=== PATIENT | male | born 1995 | race Caucasian/White ===

== ENCOUNTER 2023-05-21 14:21 | Outpatient (OUT) | payer OTHER, SELFPAY ==
--- NOTE | 2023-05-21 16:34 | P.CN_ITS ---
Consult Note: HPI Data of Consult Patient: new to practice Consult date: 05/21/23 Requesting Physician: Ray Rasmussen MD Primary Care Provider: BI BELL Consult Narrative Reason for consult: low back, bilateral lower extremity pain, midback pain Narrative: 27yom who presents for evaluation. worsening midback, low back pain with radiation into bilateral lower extremities. ongoing for several years. denies traumatic inciting event. lumbar imaging reviewed, which is significant for disc bulging and resultant stenosis at l4-5 and l5-s1. has engaged in provider directed course of home exercises >3x/week >6 weeks, with minimal benefit. uses tylenol on occasion, but does not like medication. cc:: CC: Ray Rasmussen MD Review of Systems ROS Status of ROS 10 or more systems reviewed and unremarkable except as noted in history and below Exam Narrative Exam Narrative: Psych-alert and oriented x 3. Attentive and appropriate, constitutionally normal, displays normal mood and affect per situation. There are no obvious deficits in memory, reasoning, or intellect.? Skin-no obvious rashes, bruising, erythema noted to the patient's area of pain.? Extremities- extremities are warm with minimal edema and palpable pulses. Lumbar-tenderness to palpation noted in the lumbar spine and paraspinal musculature. Pain is elicited with flexion, extension, and lateral rotation of the lumbar spine. Range of motion is diminished with these motions. Facet lucius ding maneuvers are positive.? Strength-noted to be unremarkable with the exception of decreased strength rated at 4 out of 5 in bilateral quadriceps femoris, anterior tibialis. Sensory-no notable sensory deficits in the bilateral lower extremities to touch or pinprick in all dermatomal distributions with the exception to decreased sensation to the bilateral L4, 5 dermatomal distribution? Coordination remains intact.? Gait remains non-antalgic. Assessment and Plan Assessment and Plan (1) Thoracic back pain: (2) Lumbar stenosis with neurogenic claudication: (3) Lumbar spondylosis: Plan 27yom who presents for evaluation. failed conservative measures, as noted. given symptoms and imaging, prudent to attempt bilateral l4-5 tfesi under fluoroscopic guidance. depending on response, may benefit from bilateral l5-s1 tfesi under fluoroscopic guidance. he is in agreement. in terms of mid back pain, will have him undergo thoracic xr. meds reviewed, no changes. follow up after procedure.
== END 2023-05-21 14:22 | disposition home or self-care (01) ==
LOC: PM 14:22
PROVIDERS: PCP Family Medicine; Visit Provider Anesthesiology
DX: M54.6 Pain in thoracic spine (principal); M47.816 Spondylosis without myelopathy or radiculopathy, lumbar region; M48.062 Spinal stenosis, lumbar region with neurogenic claudication
CPT/HCPCS: G0463

== ENCOUNTER 2023-05-21 16:03 | Outpatient (OUT) | payer OTHER, SELFPAY ==
--- NOTE | 2023-05-21 | XR_ITS ---
The [address] [address] Patient Name: CINDY LANDEROS MRN: [id number] date: 1995 Sex: M Assigned Patient Location: [facility] Current Patient Location: Accession/Order Number: [id number] Exam Date: 05/21/2023 16:25 Report Date: 05/22/2023 08:02 At the request of: [facility] Procedure: XR thoracic spine 2V EXAMINATION: XR thoracic spine 2V HISTORY: THORACIC BACK PAIN COMPARISON: No relevant comparison available. FINDINGS: BONES: Normal. No significant spondylosis, scoliosis, fracture, or visible bony lesion. DISC SPACES: Normal. No significant disc height narrowing, subluxation, or endplate abnormality. PARASPINOUS: Negative. No paraspinous abnormality is seen. OTHER: Negative. XR/XR thoracic spine 2V IMPRESSION: No acute radiographic abnormality Electronically authenticated by: KELLY CABELLO Date: 05/22/2023 08:02
== END 2023-05-21 16:04 | disposition home or self-care (01) ==
LOC: RAD 16:09
PROVIDERS: PCP Family Medicine; Visit Provider Anesthesiology
DX: M54.6 Pain in thoracic spine (principal); M47.816 Spondylosis without myelopathy or radiculopathy, lumbar region; M48.062 Spinal stenosis, lumbar region with neurogenic claudication
CPT/HCPCS: 72070; G0463

== ENCOUNTER 2023-06-04 15:51 | Outpatient (RCR) | payer OTHER, SELFPAY | END 2023-07-15 08:00 | disposition home or self-care (01) | LOC: PT 15:51 | PROVIDERS: PCP Family Medicine; Visit Provider Anesthesiology | DX: M54.6 Pain in thoracic spine (principal); M48.062 Spinal stenosis, lumbar region with neurogenic claudication | CPT/HCPCS: 97010; 97110; 97112; 97163 ==

== ENCOUNTER 2023-07-16 08:54 | Outpatient (RCR) | payer OTHER, SELFPAY | END 2023-08-09 15:54 | disposition home or self-care (01) | LOC: PT 08:54 | PROVIDERS: PCP Family Medicine; Visit Provider Anesthesiology | DX: M54.6 Pain in thoracic spine (principal); M48.062 Spinal stenosis, lumbar region with neurogenic claudication | CPT/HCPCS: 97010; 97110; 97140 ==

== ENCOUNTER 2023-07-31 13:20 | Outpatient (OUT) | payer OTHER, SELFPAY ==
--- NOTE | 2023-07-31 13:26 | MR_ITS ---
The [address] [address] Patient Name: CINDY LANDEROS MRN: [id number] date: 1995 Sex: M Assigned Patient Location: MRI Current Patient Location: MRI Accession/Order Number: [id number] Exam Date: 07/31/2023 13:40 Report Date: 07/31/2023 16:56 At the request of: NON-STAFF PHYSICIAN Procedure: MR head/brain wo/w con MRI brain with and without contrast, 07/31/2023. HISTORY: Headache. Pain in back of neck. COMPARISON: None. TECHNIQUE: Multiplanar, multisequence MRI imaging of the brain with and without contrast. FINDINGS: Paranasal sinuses clear. Left maxillary sinus is small in size likely related to chronic obstruction. Mastoid air cells and middle ear cavities clear. Nasopharynx normal. Plastic Cutter spaces are normal. Orbital contents normal. Extracranial soft tissue structures unremarkable. The ventricles are normal in size. There is no hydrocephalus. No mass effect. No shift of midline. No extra-axial fluid collections. No abnormal signal in the brain. Diffusion images are normal. No evidence of acute ischemic infarction. The T2 gradient images show no hemorrhagic lesions. No pathologic enhancement within the brain. No brain mass. MR/MR head/brain wo/w con IMPRESSION: Normal MRI of the brain. Electronically authenticated by: STACIE URBANO Date: 07/31/2023 16:56
== END 2023-07-31 13:21 | disposition home or self-care (01) ==
LOC: MRI 13:20
PROVIDERS: PCP Family Medicine
DX: R51.0 Headache with orthostatic component, not elsewhere classified (principal)
CPT/HCPCS: 70553; A9575

== ENCOUNTER 2023-08-16 13:18 | Outpatient (OUT) | payer OTHER, SELFPAY ==
--- OUTSIDE RECORDS SUMMARY | 2023-08-16 13:24 | XMS_ITS | CCD ---
Author Name Unknown Address [address] [place] [address] Organization [facility] Care Team Providers Care Nickel Plater Name Role Phone Bi BELL Primary Care Physician Trupti Marques CNP Primary Care Provider Bi Bell Unavailable Unavailable Unavailable Dr. Bi Bell Primary Care CESILIA Keller Referring Unavailable CESILIA JETER Attending Unavailable Bi BELL Primary Care Physician DO Bi Bell Primary Care Provider MD Cesilia Jeter Attending Provider [phone] MD Minnie Vásquez Referring Provider Cesilia Jeter Admitting Unavailable Cesilia Jeter Attending Bi Nelson Primary Care Unavailable Minnie Vásquez Referring Unavailable Corona, Dr. Lomas Attending Unavailable Corona, Dr. Lomas Referring Unavailable Ray, Dr. Bi Torres Primary Care Dr. Cesilia Keller Attending Unavailable Corona, Dr. Lomas Referring Unavailable Ray, Dr. Bi Torres Primary Care Dr. Cesilia Keller Attending Unavailable Corona, Dr. Lomas Referring Unavailable Ray, Dr. Bi Torres Primary Care Dr. Cesilia Keller Attending Unavailable Corona, Dr. Lomas Referring Unavailable Ray, Dr. Bi Torres Primary Care Minnie Gallagher Attending Unavailable Corona Dr. Lomas Referring Unavailable Ray, Dr. Bi Torres Primary Care Octavio JETER, CESILIA Referring Unavailable RAY, BI TORRES Primary Care UnavailCESILIA Camarillo Attending Unavailable CORONA, CESILIA Referring Unavailable RAY, BI TORRES Primary Care Unavailabl e Ray DO, Bi Torres Primary Care Provider WENDI MENDOZA Admitting Unavailabl e MENDOZA, WENDI WU Attending Unavailabl e SALAM, Chapman Admitting Unavailable SALAM, Adela Attending Unavailable Jv Dacosta Attending Unavailable Shelli, Trupti A Admitting Unavailable Shelli, Trupti A Attending Unavailable Shelli, Trupti A Attending Unavailable Shelli, Trupti A Attending Unavailable SALAM, Adela Attending Unavailable RAY, Bi Hoyt Attending Unavailable Ghulam Masterson Attending Unavailable RAY, Bi Hoyt Attending Unavailable RAY, Bi Hoyt Attending Unavailable Winsome Davenport Attending Unavailable Palmer Levi Attending Unavailable CARIDAD, MARIELOS J Referring Unavailable NONE, XXXX Referring Unavailable SALAM, Chapman Admitting Unavailable SALAM, Adela Attending Unavailable NONE, XXXX Referring Unavailable SALAM, Chapman Admitting Unavailable SALAM, Adela Attending Unavailable RAY, Bi Hoyt Admitting Unavailable RAY, Bi Hoyt Attending Unavailable RAY, Bi Hoyt Referring Unavailable Pocos, Dixon Navarrete Admitting Unavailable Pocos, Dixon Navarrete Attending Unavailable Pocos, Dixon Navarrete Referring Unavailable Tarik Sheehan Admitting Unavailable Yatahey, Tarik Martin Attending Unavailable Yatahey, Tarik Martin Referring Unavailable Shelli, Trupti A Referring Unavailable Shelli, Trupti A Admitting Unavailable Shelli, Trupti Navarrete Attending Unavailable SALAM, Adela Admitting Unavailable SALAM, Adela Attending Unavailable CARIDADMARIELOS J Admitting Unavailable CARIDAD, MARIELOS J Attending Unavailable Allergies Allergy Classification Reported Allergen(s) Allergy Type Date of Onset Reaction(s) Facility (20 sources) Cyproheptadine; Translations: [cyproheptadine ] Drug Allergy 4 Drowsy (finding), Drowsiness, Other, Unknown [facility] (8 sources) Cephalexin; Translations: [Cephalexin TABS] Drug Allergy 3 Unknown [facility] (2 sources) Cephalexin; Translations: [CEPHALEXIN] Drug Allergy [address] [facility] Repository (1 source) ALLERGIES NOT ON FILE; Translations: [ALLERGIES NOT ON FILE] Propensity to adverse reactions (disorder) [facility] [place] Repository (2 sources) Acebutolol; Translations: [ACEBUTOLOL] Drug Allergy 3 [facility] 3 Repository Medications Current Medications Medication Drug Class(es) Dates Sig (Normalized) Sig (Original) acebutolol 200 mg oral capsule (2 sources) beta-Adrenergic Rachid Start: 04-05-2023 take 1 capsule by mouth once daily acebutolol (Sectral) 200 mg capsule Take 1 capsule (200 mg) by mouth once daily. 0 04/05/2023 Active amoxicillin 875 mg / clavulanate 125 mg oral tablet (1 source) Penicillin-class Antibacterial Start: 02-07-2023 End: 02-14-2023 Augmentin 875 mg-125 mg Tab 1 tab(s), Oral, q12hr for 7 day(s), 14 tab(s), Refill(s) 0, [facility] [address], 193, cm, 02/07/23 21:30:00 EDT, Height/Length Dosing, 113, kg, 02/07/23 21:30:00 EDT, Weight Dosing Start Date: 02/07/23 Stop Date: 02/14/23 Status: Ordered carBAMazepine 200 mg oral tablet (7 sources) Mood Stabilizer Start: 03-02-2021 carBAMazepine Tab Refills(s) 0 Start Date: 03/02/21 Status: Ordered Start: 03-02-2021 carBAMazepine Tab Refills(s) 0 Start Date: 03/02/21 Status: Ordered cholecalciferol 0.125 mg ora l capsule (8 sources) Vitamin D cholecalciferol (Vitamin D-3) 125 MCG (5000 UT) capsule Vitamin D3 50 MC G (2000 UT) Oral Tablet as directed Quantity: 0 Refills: 0 Ordered: 14-Dec-2022 DO Active ciprofloxacin 500 mg oral tablet (1 source) Quinolone Antimicrobial Start: 11-23-2022 End: 12-03-2022 take 1 tablet by mouth twice daily Cipro 500 mg Tab 500 mg = 1 tab(s), Oral, BID, X 10 day(s), # 20 tab(s), Refills(s) 0, Pharmacy: [facility] [address], 193, cm, 11/23/22 13:52:00 EDT, Height/Length Dosing, 109, kg, 11/23/22 13:52:00 EDT, Weight Dosing Start Date: 11/23/22 Stop Date: 12/03/22 Status: Ordered clobetasol propionate 0.5 mg/ml topical foam (19 sources) Corticosteroid Start: 01-05-2023 Olux 0.05% topical foam 1 anum, Topical, BID, 100 gram, Refill(s) 1, [facility] [address], 193, cm, 12/26/22 16:03:00 EDT, Height/Length Dosing, 112.1, kg, 12/26/22 16:03:00 EDT, Weight Dosing Start Date: 01/05/23 Status: Ordered Start: 10-12-2022 Olux 0.05% top ical foam 1 anum, Topical, BID, 100 gram, Refill(s) 1, [facility] [address], 193, cm, 08/09/22 16:56:00 EST, Height/Length Dosing, 115.2, kg, 08/09/22 16:56:00 EST, Weight Dosing Start Date: 10/12/22 Status: Ordered Start: 06-19-2022 Olux 0.05% top ical foam 1 anum, Topical, BID, 100 gram, Refill(s) 1, [facility] [address], 193, cm, 04/13/22 16:11:00 EDT, Height/Length Dosing, 118, kg, 04/13/22 16:11:00 EDT, Weight Dosing Start Date: 06/19/22 Status: Ordered Start: 11-25-2021 Olux 0.05% top ical foam 1 anum, Topical, BID, 100 gram, Refill(s) 1, [facility] [address], 193, cm, 10/06/21 15:13:00 EDT, Height/Length Dosing, 111.7, kg, 10/06/21 15:13:00 EDT, Weight Dosing Start Date: 11/25/21 Status: Ordered End: 05-28-2023 clobetasol (Olux) 0.05 % top ical foam Apply topically 2 times a day. 0 05/28/2023 Discontinued (Therapy completed) End: 05-28-2023 clobetasoL-emollient 0.05 % topical foam Apply topically. 0 05/28/2023 Discontinued (Therapy completed) Comment on above: Apply to affected ar ea. cyclobenzaprine hydrochloride 5 mg oral tablet (7 sources) Muscle Relaxant Start: 021 take 1 tablet by mouth once daily at bedtime cyclobenzaprine 5 mg Tab TAKE 1 TABLET BY MOUTH once a day AT BEDTIME Start Date: 03/02/21 Status: Ordered dicyclomine hydrochloride 20 mg oral tablet (2 sources) Anticholinergic Start: End: 023 take 1 tablet by mouth four times daily dicyclomine 20 mg Tab 20 mg = 1 tab(s), Oral, QID, X 7 day(s), # 28 tab(s), Refills(s) 0, Pharmacy: [facility] [address], 193, cm, 08/09/22 16:56:00 EST, Height/Length Dosing, 115.2, kg, 08/09/22 16:56:00 EST, Weight Dosing Start Date: 08/09/22 Stop Date: 08/16/22 Status: Ordered 24 hr dilTIAZem hydrochloride 120 mg extended release oral tablet (9 sources) Calcium Channel Rachid Start: 023 take 1 capsule by mouth once daily Cardizem LA 120 mg/24 hours oral tablet, extended release = 1 cap(s), Oral, Daily, # 90 cap(s), Refills(s) 1, Pharmacy: [facility] [address], 193, cm, 11/29/22 13:54:00 EDT, Height/Length Dosing, 111.5, kg, 11/29/22 13:54:00 EDT, Weight Dosing Start Date: 11/29/22 Status: Ordered DULoxetine 60 mg delayed release oral capsule (20 sources) Serotonin and Norepinephrine Reuptake Inhibitor Start: 023 take 1 capsule by mouth once daily DULoxetine (Cymbalta) [address] capsule Take 1 capsule (60 mg) by mouth once daily. For 30 days 0 01/04/2023 Active Start: 08-08-2022 duloxetine Ref ills(s) 0 Start Date: 08/08/22 Status: Ordered Start: 06-05-2022 End: 05-28-2023 take 1 capsule by mouth once daily DULoxetine (Cymbalta) [address] capsule Take 1 capsule (30 mg) by mouth once daily. For 30 days 0 06/05/2022 05/28/2023 Discontinued (Therapy completed) Start: 03-27-2022 take 1 capsule by [facility] once daily DULoxetine 30 mg Cap-EC TAKE 1 CAPSULE BY MOUTH EVERY DAY FOR 30 DAYS Start Date: 03/27/22 Status: Ordered duloxetine HCl ( DULOXETINE ORAL) Take by mouth. 0 Active Comment on above: Take by mouth. famotidine 40 mg oral tablet (20 sources) Histamine-2 Receptor Antagonist Start: 03-02-20 take 1 tablet by mouth once daily famotidine (Pepcid) 40 mg tablet Take 1 tablet (40 mg) by mouth once daily. 0 07/27/2022 Active Comment on above: Take 40 mg by mouth once daily. handicap plaquard (3 sources) Start: 01-11-20 handicap plaquard handicap plaquard, See Instructions, 1 EA, 0, 5 years, Supply Start Date: 01/10/22 Status: Ordered hydrOXYzine hydrochloride 25 mg oral tablet (3 sources) Antihistamine Start: 01-11-20 take 1 tablet by mouth four times daily as needed hydrOXYzine hydrochloride 25 mg Tab 25 mg = 1 tab(s), Oral, QID, PRN for itching, # 40 tab(s), Refills(s) 0, Pharmacy: [facility] [address] 193, cm, 01/10/22 15:41:00 EDT, Height/Length Dosing, 115.8, kg, 01/10/22 15:41:00 EDT, Weight Dosing Start Date: 01/10/22 Status: Ordered LDN 1.5 mg (1 source) Start: 11-30-19 LDN 1.5 mg LDN 1.5 mg, See Instructions, 30 cap(s), 0, 1 cap po at HS, [employer] [employer], 193, cm, 11/29/22 13:54:00 EDT, Height/Length Dosing, 111.5, kg, 11/29/22 13:54:00 EDT, Weight Dosing Start Date: 11/29/22 Status: Ordered LDN 3 mg (1 source) Start: 12-27-19 LDN 3 mg LDN 3 mg, See Instructions, 30 cap(s), 2, 1 cap po at HS, [employer], [employer], 193, cm, 12/26/22 16:03:00 EDT, Height/Length Dosing, 112.1, kg, 12/26/22 16:03:00 EDT, Weight Dosing Start Date: 12/26/22 Status: Ordered losartan potassium 25 mg oral tablet (20 sources) Angiotensin 2 Receptor Rachid Start: 01-13-20 take 1 tablet by mouth once daily losartan (Cozaar) 25 mg tablet Take 1 tablet (25 mg) by mouth once daily. 0 03/30/2022 Active Comment on above: Take 25 mg by mouth once daily. magnesium oxide 400 mg oral tablet (3 sources) Start: 11-30-19 End: 05-28-20 take 1 tablet by mouth once daily magnesium oxide 400 mg Tab 400 mg = 1 tab(s), Oral, Daily, X 30 day(s), # 30 tab(s), Refills(s) 2, Pharmacy: [facility] [address], 193, cm, 11/29/22 13:54:00 EDT, Height/Length Dosing, 111.5, kg, 11/29/22 13:54:00 EDT, Weight Dosing Start Date: 11/29/22 Stop Date: 02/27/23 Status: Ordered melatonin 1 mg oral tablet (8 sources) Start: 03-02-20 take 1 capsule by mouth at bedtime Melatonin 1 mg oral tablet take 1 capsule po at bedtime Start Date: 03/02/21 Status: Ordered modafinil 200 mg oral tablet (20 sources) Sympathomimetic-like Agent Start: 04-13-20 End: 05-28-20 take 1 tablet by mouth once daily in the morning Provigil 200 mg Tab 200 mg = 1 tab(s), Oral, qAM, # 30 tab(s), Refills(s) 2, Pharmacy: [facility] [address], 193, cm, 12/26/22 16:03:00 EDT, Height/Length Dosing, 112.1, kg, 12/26/22 16:03:00 EDT, Weight Dosing Start Date: 12/26/22 Status: Ordered Comment on above: Take 200 mg by mouth once daily. Olux 0.05% topical foam (4 sources) Start: 11-26-19 Olux 0.05% topical foam 1 anum, Topical, BID, 100 gram, Refill(s) 1, [facility] [address]16, 193, cm, 10/06/21 15:13:00 EDT, Height/Length Dosing, 111.7, kg, 10/06/21 15:13:00 EDT, Weight Dosing Start Date: 11/25/21 Status: Ordered Start: 08-16-2021 Olux 0.05% top ical foam 1 anum, Topical, BID, 100 gram, Refill(s) 0, [facility]16, 193, cm, 06/02/21 16:01:00 EST, Height/Length Dosing, 105.4, kg, 06/02/21 16:01:00 EST, Weight Dosing Start Date: 08/16/21 Status: Ordered ondansetron 4 mg disintegrating oral tablet (15 sources) Serotonin-3 Receptor Antagonist Start: 08-09-2022 End: 05-28-2023 take 1 tablet by mouth every six hours ondansetron 4 mg Dis Tab 4 mg = 1 tab(s), Oral, q6hr, # 12 tab(s), Refills(s) 0, Pharmacy: [facility] [address], 193, cm, 08/09/22 16:56:00 EST, Height/Length Dosing, 115.2, kg, 08/09/22 16:56:00 EST, Weight Dosing Start Date: 08/09/22 Status: Ordered End: 05-28-2023 ondansetron (Zofran) 4 mg ta blet Take by mouth every 8 hours if needed for nausea or vomiting. 0 05/28/2023 Discontinued (Therapy completed) Comment on above: Take by mouth every 8 hours as needed for nausea/vomiting. pantoprazole 40 mg extended release oral tablet (20 sources) Proton Pump Inhibitor Start: 05-26-20 take 1 tablet by mouth once daily pantoprazole 40 mg Oral EC Tab 40 mg = 1 tab(s), Oral, Daily, # 90 tab(s), Refills(s) 1, Pharmacy: [facility] [address], 193, cm, 04/13/22 16:11:00 EDT, Height/Length Dosing, 118, kg, 04/13/22 16:11:00 EDT, Weight Dosing Start Date: 05/26/22 Status: Ordered Start: 01-13-2022 End: 05-28-2023 take 1 tablet by mouth once daily pantoprazole 40 mg Oral EC Tab 40 mg = 1 tab(s), Oral, Daily, # 90 tab(s), Refills(s) 1, Pharmacy: [facility] [address], 193, cm, 01/10/22 15:41:00 EDT, Height/Length Dosing, 115.8, kg, 01/10/22 15:41:00 EDT, Weight Dosing Start Date: 01/13/22 Status: Ordered Start: 06-02-2021 take 1 tablet by [facility] once daily pantoprazole 40 mg Oral EC Tab 40 mg = 1 tab(s), Oral, Daily, # 90 tab(s), Refills(s) 1, Pharmacy: [facility] [address], 193, cm, 06/02/21 16:01:00 EST, Height/Length Dosing, 105.4, kg, 06/02/21 16:01:00 EST, Weight Dosing Start Date: 06/02/21 Status: Ordered Pantoprazole Sod ium 40 MG Oral Packet as directed Quantity: 0 Refills: 0 Ordered: 14-Dec-2022 DO Active Comment on above: Take 40 mg by mouth once daily. predniSONE 10 mg oral tablet (4 sources) Start: 03-27-2022 predniSONE 10 mg Tab 0 = 1 -, Oral, As Directed, Take 5 tabs by mouth daily x3 days, 4 daily x3 days, 3 daily x3 days, 2 daily x3 days, then 1 tab daily x3 days., # 45 tab(s), Refills(s) 0, Pharmacy: [facility], 193, cm, 03/27/22 11:22:00 EDT, Height/Lengt... Start Date: 03/27/22 Status: Ordered Start: 01-10-2022 predniSONE 10 mg Tab 0 = 1 -, Oral, As Directed, Take 5 tabs by mouth daily x3 days, 4 daily x3 days, 3 daily x3 days, 2 daily x3 days, then 1 tab daily x3 days., # 45 tab(s), Refills(s) 0, Pharmacy: [facility], 193, cm, 01/10/22 15:41:00 EDT, Height/Lengt... Start Date: 01/10/22 Status: Ordered 24 hr propranolol hydrochloride 80 mg extended release oral capsule (7 sources) beta-Adrenergic Rachid Start: 12-29-2020 take 1 tablet by mouth once daily propranolol 80 mg Cap-ER TAKE 1 TABLET BY MOUTH EVERY DAY Start Date: 12/29/20 Status: Ordered Start: 12-29-2020 take 1 tablet by [facility] th once daily propranolol 80 mg Cap-ER TAKE 1 TABLET BY MOUTH EVERY DAY Start Date: 12/29/20 Status: Ordered QUEtiapine 25 mg oral tablet (4 sources) Atypical Antipsychotic Start: 11-30-2021 take 1 tablet by mouth at bedtime quetiapine 25 mg Tab 25 mg = 1 tab(s), Oral, Bedtime, # 30 tab(s), Refills(s) 0, Pharmacy: [facility], 193, cm, 11/29/21 15:48:00 EDT, Height/Length Dosing, 112.9, kg, 11/29/21 15:48:00 EDT, Weight Dosing Start Date: 11/30/21 Status: Ordered rimegepant 75 mg disintegrating oral tablet (11 sources) Start: 11-23-2022 Nurtec ODT 75 mg tablet,disintegrat ing Take 1 tablet (75 mg) by mouth. at onset OF migraine for 30 days 0 11/23/2022 Active 24 hr venlafaxine 37.5 mg extended release oral capsule (7 sources) Serotonin and Norepinephrine Reuptake Inhibitor Start: 09-01-2021 venlafaxine 37.5 mg Cap-ER Refills(s) 0 Start Date: 09/01/21 Status: Ordered Start: 09-01-2021 venlafaxine 37 .5 mg Cap-ER Refills(s) 0 Start Date: 09/01/21 Status: Ordered vitamin B12 (20 sources) Vitamin B12 Start: 08-08-2022 Vitamin B12 Re fills(s) 0 Start Date: 08/08/22 Status: Ordered take 1 tablet by mouth once alka y cyanocobalamin (Vitamin B-12) 1,000 mcg tablet Take 1 tablet (1,000 mcg) by mouth once daily. 0 Active Comment on above: Take 1,000 mcg by [facility] once daily. Vitamin D (13 sources) Start: 08-08-2022 Vitamin D Refi lls(s) 0 Start Date: 08/08/22 Status: Ordered Completed/Discontinued Medications Medication Drug Class(es) Dates Sig (Normalized) Sig (Original) acetaminophen 300 mg / codeine phosphate 30 mg oral tablet (1 source) Opioid Agonist Start: 02-08-2023 End: 05-28-2023 take 1 tablet by mouth every six hours as needed acetaminophen-code ine (Tylenol w/ Codeine #3) 300-30 mg tablet Take 1 tablet by mouth every 6 hours if needed. 0 02/08/2023 05/28/2023 Discontinued (Therapy completed) cholecalciferol, vitamin D3, (VITAMIN D3 ORAL) (1 source) cholecalciferol, vitamin D3, (VITAMIN D3 ORAL) Take by mouth. 0 Active Comment on above: Take by mouth. Clobetasol Propionate FOAM (7 sources) Clobetasol Propionate FOAM APPLY SPARINGLY TO AFFECTED AREA(S) TWICE DAILY Quantity: 0 Refills: 0 Ordered: 14-Dec-2022 DO Active Fiber Therapy CAPS (6 sources) Fiber Therapy CA PS USE DIRECTED. Quantity: 0 Refills: 0 Ordered: 14-Dec-2022 DO Active Magnesium Chloride (7 sources) Start: 11-09-2020 take 1 tablet by mouth twice daily MAgnesium Chloride 64 MAgnesium Chloride 64, 1 tab, Oral, BID, 60 tab(s), 1, [facility], Supply, 193, cm, 11/09/20 16:16:00 EDT, Height/Length Dosing, 93.5, kg, 11/09/20 16:16:00 EDT, Weight Dosing Start Date: 11/09/20 Status: Ordered 24 hr metoprolol succinate 50 mg extended release oral tablet (16 sources) beta-Adrenergic Rachid Start: 04-13-2022 End: 05-28-2023 take 1 tablet by mouth once daily metoprolol succinate XL (Toprol-XL) 50 mg 24 hr tablet Take 1 tablet (50 mg) by mouth once daily. 0 08/10/2022 05/28/2023 Discontinued (Therapy completed) End: 05-28-2023 take 1 tablet by mouth twice daily metoprolol tartrate (Lopressor) 50 mg tablet Take 1 tablet by mouth twice a day. 0 05/28/2023 Discontinued (Therapy completed) Comment on above: Take 50 mg by mouth twice daily. Naltrex 1.5 MG Oral Capsule (7 sources) take 1 tablet by mouth once daily Naltrex 1.5 MG Oral Capsule 1 TAB DAILY Quantity: 0 Refills: 0 Ordered: 14-Dec-2022 DO Active naltrexone hydrochloride 50 mg oral tablet (1 source) Opioid Antagonist Start: 3 End: 3 naltrexone (Depade) 50 mg tablet NON FORMULARY (1 source) Start: 3 End: 3 take 1 capsule by mouth at bedtime NON FORMULARY LDN 3mg; 1 capsule PO at HS 0 12/26/2022 05/28/2023 Discontinued (Therapy completed) pregabalin 50 mg oral capsule (9 sources) Start: 3 End: 3 take 1 capsule by mouth twice daily pregabalin (Lyrica) 50 mg capsule Take 1 capsule (50 mg) by mouth 2 times a day. 0 03/16/2023 05/28/2023 Discontinued (Therapy completed) Start: 09-01-2021 take 1 capsule by [facility] twice daily pregabalin 100 mg Cap TAKE 1 CAPSULE BY MOUTH TWICE DAILY FOR 30 DAYS Start Date: 09/01/21 Status: Ordered Probiotic Acidophilus TABS (6 sources) Probiotic Acidop hilus TABS USE DIRECTED. Quantity: 0 Refills: 0 Ordered: 14-Dec-2022 DO Active SUMAtriptan 25 mg oral tablet (1 source) Serotonin-1b and Serotonin-1d Receptor Agonist End: 3 SUMATRIPTAN SUCCINATE ORAL Take 25 mg by mouth. 0 05/28/2023 Discontinued (Therapy completed) topiramate 25 mg oral tablet (1 source) End: 3 TOPIRAMATE ORAL Take 25 mg by mouth. 0 05/28/2023 Discontinued (Therapy completed) Vitamin D3 5000 intl units oral capsule (8 sources) Start: 1 take 1 capsule by mouth once daily at mealtime Vitamin D3 5000 intl units oral capsule 5,000 International_Unit = 1 cap(s), Oral, Daily, with food, # 100 cap(s), Refills(s) 0 Start Date: 11/30/20 Status: Ordered Problems Active Problems Problem Classification Problem Date Documented Da te Episodic/Chronic Abdominal pain (20 sources) Epigastric pain; Translations: [Chronic abdominal pain] Onset: 3 03-02-2021 Episodic Administrative/social admission (1 source) Follow-up status; Translations: [Other specified counseling] Episodic Cardiac dysrhythmias (4 sources) Unspecified atrial fibrillation; Translations: [Atrial fibrillation] Onset: 3 Chronic Cardiac dysrhythmias (20 sources) Tachycardia; Translations: [Palpitations] Onset: 3 04-14-2022 Episodic Conditions associated with dizziness or vertigo (7 sources) Lightheadedness; Translations: [Dizziness and giddiness] Episodic Disorders of teeth and jaw (1 source) Disorder of teeth AND/OR supporting structures; Translations: [Other specified disorders of teeth and supporting structures] Onset: 3 Episodic Esophageal disorders (15 sources) Gastroesophageal reflux disease without esophagitis; Translations: [Gastro-esophageal reflux disease without esophagitis] Onset: 3 Chronic Essential hypertension (20 sources) Essential hypertension 08-13-2019 Chronic Headache; including migraine (7 sources) Migraine; Translations: [Migraine, unspecified, without mention of intractable migraine without mention of status migrainosus] Chronic Headache; including migraine (1 source) Headache; Translations: [Headache, unspecified] Episodic Heart valve disorders (4 sources) Cardiac murmur, unspecified; Translations: [Heart murmur] Onset: 3 Episodic Intestinal infection (4 sources) Small bowel bacterial overgrowth syndrome; Translations: [Small intestinal bacterial overgrowth (SIBO)] Onset: 3 11-23-2022 Episodic Malaise and fatigue (1 source) Fatigue; Translations: [Chronic fatigue, unspecified] Onset: 3 06-02-2023 Chronic Malaise and fatigue (20 sources) Fatigue; Translations: [Other malaise and fatigue] 09-01-2021 Episodic Miscellaneous mental health disorders (17 sources) Not getting enough sleep; Translations: [Insufficient sleep syndrome] Onset: 2 Chronic Nausea and vomiting (9 sources) Nausea; Translations: [Nausea] Onset: 3 Episodic Noninfectious gastroenteritis (20 sources) Chronic diarrhea; Translations: [Noninfectious enteritis] Onset: 3 02-16-2022 Episodic Nonspecific chest pain (8 sources) Chest discomfort; Translations: [Other chest pain] Onset: 3 Episodic Nutritional deficiencies (20 sources) Vitamin D deficiency; Translations: [Vitamin D deficiency, unspecified] Onset: 3 10-12-2020 Chronic Nutritional deficiencies (3 sources) Cobalamin deficiency; Translations: [Deficiency of other specified B group vitamins] Onset: 3 11-29-2022 Episodic Other aftercare (1 source) Treatment changed; Translations: [Long-term (current) use of other medications] Episodic Other connective tissue disease (1 source) Muscle pain; Translations: [Myalgia, unspecified site] Episodic Other gastrointestinal disorders (4 sources) Irritable bowel syndrome with diarrhea; Translations: [Irritable bowel syndrome with diarrhea] Onset: 3 11-23-2022 Chronic Other gastrointestinal disorders (20 sources) Incontinence of feces; Translations: [Full incontinence of feces] Onset: 3 11-30-2021 Episodic Other gastrointestinal disorders (9 sources) Diarrhea; Translations: [Diarrhea, unspecified] Onset: 3 Episodic Other gastrointestinal disorders (1 source) Disorder of intestine; Translations: [Other specified diseases of intestine] Onset: 3 Episodic Other liver diseases (9 sources) Steatosis of liver; Translations: [Fatty (change of) liver, not elsewhere classified] Onset: 3 Chronic Other lower respiratory disease (20 sources) Dyspnea; Translations: [Shortness of breath] Onset: 2 01-11-2022 Episodic Other lower respiratory disease (7 sources) Dyspnea on exertion; Translations: [Shortness of breath] Episodic Other nervous system disorders (1 source) Hereditary sensory and autonomic neuropathy; Translations: [Hereditary and idiopathic neuropathy, unspecified] Onset: 2 Chronic Other nervous system disorders (20 sources) Idiopathic small fiber peripheral neuropathy 06-05-2021 Chronic Other nervous system disorders (2 sources) Chronic pain; Translations: [Other chronic pain] Onset: 2 Chronic Other nervous system disorders (20 sources) H/O: migraine 12-18-2011 Episodic Comment on above: cluster migraines cluster migraines Other non-traumatic joint disorders (2 sources) Joint pain; Translations: [Pain in unspecified joint] 10-05-2020 Episodic Other non-traumatic joint disorders (1 source) Pain in left knee; Translations: [Pain of joint of knee] Onset: 2 Episodic Other non-traumatic joint disorders (1 source) Pain of right shoulder joint; Translations: [Pain in right shoulder] Onset: 2 Episodic Other non-traumatic joint disorders (1 source) Pain in right knee; Translations: [Pain of right knee joint] Onset: 2 Episodic Other non-traumatic joint disorders (1 source) Pain of left shoulder joint; Translations: [Pain in left shoulder] Onset: 2 Episodic Other non-traumatic joint disorders (16 sources) Shoulder pain 03-27-2022 Episodic Other nutritional; endocrine; and metabolic disorders (6 sources) Obesity; Translations: [Obesity, unspecified] Chronic Other nutritional; endocrine; and metabolic disorders (1 source) Overweight in adulthood with body mass index of 25 or more but less than 30; Translations: [Overweight] Episodic Other screening for suspected conditions (not mental disorders or infectious disease) (1 source) Abnormal results function studies of central nervous system; Translations: [Abnormal results of other function studies of central nervous system] Onset: 3 06-02-2023 Episodic Other skin disorders (1 source) Excessive sweating 10-05-2020 Episodic Other skin disorders (12 sources) Eruption 04-14-2022 Episodic Residual codes; unclassified (20 sources) Insomnia; Translations: [Insomnia, unspecified] Onset: 3 08-13-2019 Episodic Residual codes; unclassified (20 sources) Diffuse pain 10-08-2021 Episodic Residual codes; unclassified (1 source) Finding of temperature sense; Translations: [Other general symptoms and signs] Onset: 3 05-25-2023 Episodic Syncope (20 sources) Syncope; Translations: [Syncope and collapse] Onset: 3 09-01-2021 Episodic Systemic lupus erythematosus and connective tissue disorders (2 sources) Autoimmune disease 11-29-2022 Chronic Unclassified (20 sources) Finding of temperature sense 10-08-2021 Unclassified (16 sources) Pain of knee region 03-27-2022 Past or Other Problems Problem Classification Problem Date Documented Da te Episodic/Chronic Unclassified (7 sources) Patient status finding; Translations: [Patient new to provider] Unclassified (7 sources) Never smoked tobacco; Translations: [Never a smoker] Results Test Name Value Interpretation Reference Range Facil ity Auth for Release of Medical Recordson 06-11-2023 Auth for Release of Medical Records [id number]# 1.00TIFF Normal [facility] STRESS TEST ONLYon 3 STRESS TEST ONLY [facility] [address], [place] [address] Exercise Stress Test Patient Name: CINDY SYLVESTER Ordering Provider: [id number] CESILIA JETER Study Date: 05/01/2023 Reading Physician: [id number] Dianna Holloway MD, [facility] MRN/PID: [id number] Supervising Physician: [id number] Rex Gaffney DO Fellow: Date of /Age: 3 1995 / years Fellow: Gender: M Nurse: Kurt Urias RN Admission Status: Hse Specialist: ANITA Height: 193.04 cm Technologist: Weight: 107.50 kg Additional Staff: BSA: 2.38 m2 BMI: 28.85 kg/m2 Patient Location: Study Type: STRESS TEST ONLY Diagnosis/ICD: Palpitations-R00.2; Syncope and collapse-R55 Indication: Hypertension CPT Codes: Stress Test Interpretation-86490 ; Stress Test Supervision-[id number] Falls Risk: Low: Patient has low risk for sustaining a fall; environmental safety interventions in place. Study Details: Correct procedure and correct patient verified verbally. Patient Performance: The patient exercised to stage II on a Sergio protocol for 5 minutes and 05 seconds, achieving 7.00 METS. The peak heart rate achieved was 170 bpm, which was 88 % of the age predicted target heart rate of 192 bpm. The resting blood pressure was 120/84 mmHg with a heart rate of 100 bpm. The standing blood pressure was 124/82 mmHg with a heart rate of 100 bpm. The patient's functional capacity was below average. The patient developed fatigue during the stress exam. The symptoms resolved with rest. The blood pressure response was normal. The test was terminated due to: fatigue. Baseline ECG: Resting ECG showed normal sinus rhythm. Stress Stage Data: + +- --+------+-------+ HR Sys BP Matias BP + +- --+------+-------+ Baseline Resting 100 120 84 + +- --+------+-------+ Baseline Standing 100 124 82 + +- --+------+-------+ Stage I 141 148 84 + +- --+------+-------+ Stage II 173 158 86 + +- --+------+-------+ Recovery ECG: The heart rate recovery was normal. + +---+-- ----+-------+ HR Sys BP Matias BP + +---+-- ----+-------+ Recovery I 172 158 86 + +---+-- ----+-------+ Recovery II 144 154 84 + +---+-- ----+-------+ Recovery III 125 136 86 + +---+-- ----+-------+ Recovery IV 113 124 82 + +---+-- ----+-------+ Summary: 1. 1_normal graded exercise tolerance test but with limited exercise tolerance for age. The patient was able to exercise only for 5 minutes and 5 seconds on a Sergio protocol and achieved 91% of predicted maximal heart rate and a maximal workload of 7 METS. The test ended due to dyspnea and fatigue 2_no ischemic ST segment or Matyas, chest pain or cardiac arrhythmias induced by exercise 3_resting heart rate in the upper normal range at 100 bpm but with appropriate heart rate recovery. Patient achieved Wright treadmill score of 5+. [id number] Dianna Holloway MD, FACC Electronically signed on 05/01/2023 at 3:56:52 PM Final [facility] Consultation Noteon 04-24-20 23 Consultation Note [id number] #1.00TIFF [facility] Office Visit (Cardiology)on 04-05-2023 Follow-up visit Diagnoses/Problems Assessed Palpitations (785.1) (R00.2) Syncope and collapse (780.2) (R55) Overweight with body mass index (BMI) of 28 to 28.9 in adult (278.02,V85.24) (E66.3,Z68.28) Never a smoker Orders Lightheadedness, Palpitations, Sinus tachycardia Start: Acebutolol HCl - 200 MG Oral Capsule; TAKE 1 CAPSULE Daily Overweight with body mass index (BMI) of 28 to 28.9 in adult Healthy Weight Tips; Status:Complete - Retrospective Authorization; Done: [id number] Some eating tips that can help you lose weight.; Status:Complete - Retrospective Authorization; Done: [id number] Palpitations, Syncope and collapse Cardiac Stress Test; Status:Hold For - Scheduling,Retrospec tive Authorization; Requested for:05Apr2023; SocHx: Never a smoker Tobacco Use Screening; Status:Complete; Done: 05Apr2023 Unlinked Stop: Cardizem LA 120 MG Oral Tablet Extended Release 24 Hour (dilTIAZem HCl ER) Patient Instructions Please bring all medicines, vitamins, and herbal supplements with you when you come to the office. Prescriptions will not be filled unless you are compliant with your follow up appointments or have a follow up appointment scheduled as per instruction of your physician. Refills should be requested at the time of your visit. Follow up after testing completed Chief Complaint CINDY SYLVESTER is being seen for results. History of Present Illness 27-year-old was recently and initially seen December 2022 presents for follow-up after blood work tilt table test echocardiogram Holter monitor. On the tilt table test, there was presyncope, associated with arterial hypotension and elevated heart rate, raising possibility of POTS. Reviewed echocardiogram and Holter monitor results, they are within normal limits Complains of intermittent anterior chest discomfort which is brief in duration, lasts a few seconds, sometimes it is a pressure sometimes with activity sometimes at rest. Clinically we cannot diagnose the reason for this pain. Could be GI could be cardiac could be musculoskeletal. Has history of hypertension, remains on losartan low-dose and diltiazem. History of migraine headaches. Reviewed CBC basic metabolic profile and thyroid profile History so far: 1. Multitude of symptoms to include palpitations shortness of breath profound fatigue feeling of muscle weakness, possible autoimmune disorder that is being worked up, no history of COVID no history of infectious mononucleosis no known coronary artery disease. Currently unable to work. 2. Patient had a sleep study done recently results are pending 3. Hypertension 4. GERD 5. Autoimmune disorder 6. Details of autoimmune disorder are unclear to me 7. Chronic diarrhea and abdominal pain 8.History of migraine headaches 9. History of bowel incontinence 10. Possible irritable bowel syndrome 11. Small intestinal bacterial overgrowth 12. Idiopathic small fiber peripheral neuropathy. 13. Low vitamin B12 and vitamin D levels on supplementation 14. Echocardiogram January 2023-left atrium 3 cm LV end-systolic dimension 3.3 cm LV wall thickness 0.8 cm grossly normal valves normal RV size and systolic function RVSP could not be calculated 15. 48-hour Holter monitor January 2023-predominant rhythm sinus minimum sinus rate 55 average sinus rate 94 maximum heart rate 154 bpm isolated ventricular premature beats and supraventricular premature beats no atrial fibrillation or malignant dysrhythmias, patient did not report any symptoms and did not report activity status. If tachycardia occurred with minimal activity or at rest inappropriate sinus tachycardia cannot be excluded 16. Tilt table testing February 2023-after sublingual nitroglycerin patient developed borderline low blood pressure prodromal symptoms significant sinus tachycardia diaphoresis and impending syncope. Assessment: 1. Probable postural orthostatic tachycardia syndrome 2. Multiple comorbidities as listed above 3. Hypertension-therefo re unable to use Florinef 4. Currently on diltiazem, will switch to acebutolol, hopefully neurology in agreement 5. Continue sertraline instead of duloxetine, may be better for postural orthostatic hypotension, defer to primary 6. Chest pain-best described as atypical. 7. Modafinil has increased alertness Recommendations: 1. Discontinue diltiazem 2. Acebutolol 200 mg p.o. twice daily 3. Treadmill stress test does not require perfusion, does not need to interrupt acebutolol 4. Follow-up after testing 5. Stay hydrated at all times and avoid situations that may precipitate presyncope or syncope Surgical History Problems History of Complete colonoscopy 2022 History of Knee surgery Current Meds Medication NameInstruction Cardizem LA 120 MG Oral Tablet Extended Release 24 Hour1 TAB DAILY Clobetasol Propionate FOAMAPPLY SPARINGLY TO AFFECTED AREA(S) TWICE DAILY DULoxetine HCl - 60 MG Oral Capsule Delayed Release ParticlesTAKE 1 CAPSULE DAILY. Famotidine 40 MG O (more content not included)... Normal [facility] Tobacco Screening.on 023 Tobacco use status [facility] b) No -[facility] [address] DO Work Phone: CA tilt table teston 023 CA tilt table test [facility] [address] [place] [address] [place] [address] Cardiology Report Signed Patient: Cindy Sylvester MR#: [id number] : 1995 Acct:[id number] Age/Sex: 27 / M ADM Date: 02/15/23 Loc: Room: Type: [facility] Attending Dr: Cesilia Jeter MD Copies to: Minnie Vásquez MD Ordering Provider: Minnie Vásquez MD Date of Service: 02/15/23 CA/CA tilt table test: syncope REASON FOR THE STUDY: Lightheadedness, dizziness and presyncope. REFERRING PHYSICIAN: Cesilia Jeter MD PROCEDURE: The patient underwent a standard tilt table test. He received a total of 250 mL of normal saline, then the patient tilted to the upright position after establishing continuous blood pressure, O2 saturation and heart rate monitoring was established. The patient was tilted to the upright position and was monitored for 25 minutes, during which no symptoms were reported, and the patient demonstrated a physiologic hemodynamic response to tilt maneuver. The patient then was given sublingual nitroglycerin and within 5 minutes, the patient developed borderline low blood pressure, prodromal symptoms and significant sinus tachycardia and diaphoresis and impending syncope the patient was placed in the supine position with improvement of his symptoms. CONCLUSION: Borderline positive tilt table test with induction of presyncopal symptomatology, borderline hypotension and excessive bradycardia, likely to be consistent with POTS syndrome. 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 Transcribed By: MARLEY 02/15/231702 Dictated By: Minnie Vásquez MD 02/15/23 1115 Signed By: 02/15/23 1754 [facility] No Panel Informationon 02-15 [facility] [address] DO Work Phone: Consultation Noteon 02-14-20 Consultation Note [id number] #1.00CD:127 [facility] ED Note-Physicianon 02-10-20 ED Note-Physician Basic Information Time Seen: Benja GALLARDO, Inocencio Joyner 02/07/2023 21:33 Chief Complaint pt arrives for c/o dental pain. mother states he had a tooth pulled yesturday and states some bone was removed. History of Present Illness 27-year-old male reports to the emergency department with chief complaint of left upper dental pain. He reports that yesterday he had a surgery to remove a pulled tooth. He reports that he believes that some of the bone was removed. States that this happens, but is having a lot of pain now. Reports only has been taking for pain is ibuprofen. Reports that he is also had some pus that has been draining out of his upper left gums as well. Wants to make sure that he is not having some type of infection. He reports he does have a follow-up with the surgeon tomorrow. He does want to get checked out. Denies any allergies to medications except Cyproheptadine. Review of Systems A 10 point review of systems is negative except as noted above. Medical and Surgical History: Reviewed and noted Social history: Lives at home Family History: Reviewed. Tobacco: Denies Physical Exam Vitals & Measurements T: 36.8 ?C(Oral) HR: 102(Peripheral) RR: 15 BP: 132/78 SpO2: 98% HT: 193 cm WT: 113 kg BMI: 30.34 General: The patient appears well and in no apparent distress. Patient is resting comfortably in chair. Afebrile Skin: Warm, dry, no pallor noted. Head: Normocephalic, atraumatic Neck: No JVD Eye: PERRLA, EOMI ENT: Moist mucus membranes. There is mild swelling of the left upper molars, due to recent extraction. No obvious abscess or drainage is noted at this time. Swelling is noted, likely reactive from the extraction. Cardiovascular: Regular rate normal peripheral perfusion Respiratory: No respiratory distress no accessory muscle use no obvious audible wheezing Chest Wall: no deformity Musculoskeletal: normal ROM, no deformity, no swelling GI: No obvious distention Neurological: A&O moves all extremities equal strength and symmetry Psychiatric: Cooperative and appropriate Medical Decision Making MEDICAL DECISION MAKING Number and Complexity of Problems Differential Diagnosis: [] [facility] Data External documents reviewed: [] My EKG interpretation: [] My CT interpretation: [] My X-ray interpretation: [] My Ultrasound interpretation: [] Decision rules/scores evaluated: [] Discussed with: [] Treatment and Disposition ED Course: 27-year-old male reports to the emergency department with a chief complaint of dental pain. He reports he had a tooth removed yesterday, still having a lot of pain. Reports only been taking ibuprofen for this. On physical exam of the patient, there is obvious swelling around where the molar was removed, but no obvious drainage or abscess seen. Due to the pain amount of pain patient exam, he will be started on Percocet to help with pain. Due to the drainage that he was describing earlier he will also be started on Augmentin again to cover against any dental infection. Discussed that ultimately needs follow-up with his surgeon, which he stated he is doing tomorrow. Physical exam newman, he is afebrile and nontachycardic. No other signs of infection are noted. Discussed return precautions. Follow-up with your primary care provider in 3 to 5 days. If symptoms worsen, do not improve, or new symptoms arise please report back to emergency department for further evaluation. The patient was understanding and agreeable to plan moving forward. Shared decision making: [] Code status: [] Assessment/Plan Pain, dental (K08.89: Other specified disorders of teeth and supporting structures) Orders: acetaminophen-oxycod one, 1 tab(s), Tab, Oral, Once, Stop date 02/07/23 21:57:00 EDT, STAT, Start date 02/07/23 21:57:00 EDT acetaminophen-oxycod one, 1 EA, Tab, Oral, Once, Stop date 02/07/23 21:57:00 EDT, STAT, Start date 02/07/23 21:57:00 EDT amoxicillin-clavulan ate, 1 tab(s), Oral, q12hr for 7 day(s), 14 tab(s), Refill(s) 0, [employer] [address], 193, cm, 02/07/23 21:30:00 EDT, Height/Length Dosing, 113, kg, 02/07/23 21:30:00 EDT, Weight Dosing amoxicillin-clavulan ate, 1 tab(s), Tab, Oral, Once, Stop date 02/07/23 21:57:00 EDT, STAT, Start date 02/07/23 21:57:00 EDT Medications Administered Given acetaminophen-oxycod one 325 mg-5 mg Tab, 1 tab(s), Oral Augmentin 875 mg-125 mg Tab, 1 tab(s), Oral TO GO acetaminophen-oxycod one 325 mg - 5 mg, 1 EA, Oral Disposition Plan Patient Discharge Condition Stable Discharge Disposition To home Discharge Prescription List Prescriptions Augmentin 875 mg-125 mg Tab, 1 tab(s), Oral, q12hr Follow-up With When Contact Information Bi [facility] In 3 days 02/10/2023 EDT [address] [facility] [place] [address]- [phone] Business (1) Additional Instructions: Follow-up with your primary care provider in 3 to 5 days. If symptoms worsen, do not improve, or new symptoms arise please report back (more content not included)... Normal [facility] Comment on above: Result Comment: Elec tronically Signed By: Inocencio Yousif PA-C\.br\Date and Time Signed: 02/07/23 23:22 EDT\.br\Electronically Co-Signed By: Ghulam Masterson MD\.br\Date and Time Co-Signed: 02/08/23 23:11 EDT Auth for Release of Medical Recordson 02-08-2023 Auth for Release of Medical Records [id number] #1.00CD:127 [facility] Discharge Instructionson Discharge Instructions [id number] #1.00CD:127 [facility] ED Clinical Summaryon 2022 ED Clinical Summary [place] [address] ED Clinical Summary Person Information Name: TIGRE, CINDY Martin Nayla/[facility] Age: 27 Years : 1995 Sex: Male Language: Spanish PCP: Bi BELL DO Marital Status: Single Visit Id: Visit Reason: Dental pain; MOUTH PAIN AFTER ORAL SURGERY Speciality: Acuity: 4 Enc Type: Emergency Med Service: Emergency Arrival: 02/07/2023 21:23:01 Discharge: 02/07/2023 22:12:46 LOS: 000 00:49 Checkin: 02/07/2023 21:23:01 Checkout: 02/07/2023 22:12:46 Dispo Type: Home (Routine DC) EVENTS: Event Name Event Status Request Date/Time Start Date/Time Complete Date/Time Arrive Complete 02/07/2023 21:23:01 02/07/2023 21:23:01 02/07/2023 21:23:01 Document Home Meds Request 02/07/2023 21:23:01 Triage Complete 02/07/2023 21:23:01 02/07/2023 21:30:10 02/07/2023 21:30:10 Registration Complete 02/07/2023 21:26:24 02/07/2023 21:26:24 02/07/2023 21:26:24 Reg Complete Request 02/07/2023 21:26:24 Isolation Screening Request 02/07/2023 21:30:11 Bed Assign Complete 02/07/2023 21:30:48 02/07/2023 21:30:48 02/07/2023 21:30:48 Dr Exam Complete 02/07/2023 21:30:48 02/07/2023 21:33:56 02/07/2023 21:33:56 RN Exam Complete 02/07/2023 21:30:48 02/07/2023 22:11:03 02/07/2023 22:11:03 Registration Request 02/07/2023 21:33:56 Meds Admin Complete 02/07/2023 21:57:38 02/07/2023 22:09:46 Meds Admin Complete 02/07/2023 21:58:13 02/07/2023 22:09:46 Discharge Complete 02/07/2023 21:58:57 02/07/2023 22:12:55 02/07/2023 22:12:55 Transfer Complete 02/07/2023 22:12:55 02/07/2023 22:12:55 02/07/2023 22:12:55 ADDRESS: [address] [place] [address] [place] [phone] PHYS DOC NOTES: MEDICAL INFORMATION: Prescriptions Given: New Medications [facility] [address], [address] [place], [place] [id number], [phone] amoxicillin-clavulan ate (Augmentin 875 mg-125 mg Tab) 1 Tablets By Mouth every 12 hours for 7 Days. Refills: 0. Medications to Continue with No Changes Other Medications clobetasol topical (Olux 0.05% topical foam) 1 Application Topical 2 times a day. Refills: 1. cyanocobalamin (Vitamin B12) diltiazem (Cardizem LA 120 mg/24 hours oral tablet, extended release) 1 Capsules By Mouth every day. Refills: 1. duloxetine ergocalciferol (Vitamin D) famotidine (famotidine 40 mg Tab) 1 Tablets By Mouth once a day (at bedtime). Refills: 1. losartan (losartan 25 mg Tab) 1 Tablets By Mouth every day. Refills: 3. magnesium oxide (magnesium oxide 400 mg Tab) 1 Tablets By Mouth every day for 30 Days. Refills: 2. Misc Prescription (LDN 3 mg) 1 cap po at HS. Refills: 2. modafinil (Provigil 200 mg Tab) 1 Tablets By Mouth once a day (in the morning). Refills: 2. ondansetron (ondansetron 4 mg Dis Tab) 1 Tablets By Mouth every 6 hours. Refills: 0. pantoprazole (pantoprazole 40 mg Oral EC Tab) 1 Tablets By Mouth every day. Refills: 1. rimegepant (Nurtec ODT 75 mg oral tablet, disintegrating) TAKE 1 TABLET BY MOUTH at onset OF migraine for 30 days. PATIENT EDUCATION INFORMATION: Instructions: Dental Pain Follow up: With: Address: When: Bi BELL [address] [facility], [facility] [place] [address] [phone] Business (1) In 3 days 02/10/2023 Comments: Follow-up with your primary care provider in 3 to 5 days. If symptoms worsen, do not improve, or new symptoms arise please report back to emergency department for further evaluation. DIAGNOSIS: Pain, dental Normal [facility] ED Patient Education Noteon 02-08-2023 ED Patient Education Note Dentistry Dental Pain Dental pain is often a sign that something is wrong with your teeth or gums. It is also something that can occur following dental treatment. If you have dental pain, it is important to contact your dental care provider, especially if the cause of the pain has not been determined. Dental pain may be of varying intensity and can be caused by many things, including: ? Tooth decay (cavities or caries). Cavities are caused by bacteria that produce acids that irritate the nerve of your tooth, making it sensitive to air and hot or cold temperatures. This eventually causes discomfort or pain. ? Abscess or infection. Once the bacteria reach the inner part of the tooth (pulp), a bacterial infection (dental abscess) can occur. Pus typically collects at the end of the root of a tooth. ? Injury. ? A crack in the tooth. ? Gum recession exposing the root, and possibly the nerves, of a tooth. ? Gum (periodontal)disease . ? Abnormal grinding or clenching. ? Poor or improper home care. ? An unknown reason (idiopathic). Your pain may be mild or severe. It may occur when you are: ? Chewing. ? Exposed to hot or cold temperatures. ? Eating or drinking sugary foods or beverages, such as soda or candy. Your pain may be constant, or it may come and go without cause. Follow these instructions at home: The following actions may help to lessen any discomfort that you are feeling before or after getting dental care. Medicines ? Take lwhh-dym-geoypua and prescription medicines only as told by your dental care provider. ? If you were prescribed an antibiotic medicine, take it as told by your dental care provider. Do not stop taking the antibiotic even if you start to feel better. Eating and drinking Avoid foods or drinks that cause you pain, such as: ? Very hot or very cold foods or drinks. ? Sweet or sugary foods or drinks. Managing pain and swelling ? Ice can sometimes be used to reduce pain and swelling, especially if the pain is following dental treatment. ? If directed, put ice on the painful area of your face. To do this: ? Put ice in a plastic bag. ? Place a towel between your skin and the bag. ? Leave the ice on for 20 minutes, 2?3 times a day. ? Remove the ice if your skin turns bright red. This is very important. If you cannot feel pain, heat, or cold, you have a greater risk of damage to the area. Brushing your teeth ? To keep your mouth and gums healthy, brush your teeth twice a day using a fluoride toothpaste. ? Use a toothpaste made for sensitive teeth as directed by your dental care provider, especially if the root is exposed. ? Always brush your teeth with a soft-bristled toothbrush. This will help prevent irritation to your gums. General instructions ? Floss at least once a day. ? Do not apply heat to the outside of the face. ? Gargle with a mixture of salt and water 3?4 times a day or as needed. To make salt water, completely dissolve ??1 tsp (3?6 g) of salt in 1 cup (237 mL) of warm water. ? Keep all follow-up visits. This is important. Contact a dental care provider if: ? You have any unexplained dental pain. ? Your pain is not controlled with medicines. ? Your symptoms get worse. ? You have new symptoms. Get help right away if: ? You are unable to open your mouth. ? You are having trouble breathing or swallowing. ? You have a fever. ? You notice that your face, neck, or jaw is swollen. These symptoms may represent a serious problem that is an emergency. Do not wait to see if the symptoms will go away. Get medical help right away. Call your local emergency services (911 in the [place] Do not drive yourself to the hospital. Summary ? Dental pain may be caused by many things, including tooth decay and infection. ? Your pain may be mild or severe. ? Take hkbe-hzg-ysvhsnh and prescription medicines only as told by your dental care provider. ? Watch your dental pain for any changes. Let your dental care provider know if your symptoms get worse. This information is not intended to replace advice given to you by your health care provider. Make sure you discuss any questions you have with your health care provider. Document Revised: 04/06/2021 Document Reviewed: 04/06/2021 Elsevier Patient Education ? 2022 [employer] [facility] ED Patient Summaryon 023 ED Patient Summary [address] [address] Patient Discharge Instructions Person Information Name: CINDY SYLVESTER Age: 27 Years Arrival Date: 02/07/2023 21:23:01 Discharge Diagnosis: Pain, dental Primary Care Physician: Bi BELL DO Provider Information Primary Provider: Advanced Cardiac Surgeon:None The exam and treatment you received in the Emergency Department were for an urgent problem and are not intended as complete care. It is important that you follow up with a doctor, nurse practitioner, or physician?s study assistant for ongoing care. If your symptoms become worse or you do not improve as expected and you are unable to reach your usual health care provider, you should return to the Emergency Department. We are available 24 hours a day. CINDY SYLVESTER has been given the following list of patient education materials, prescriptions and follow-up instructions: Follow-up Instructions: With: Address: When: Bi BELL [address] [facility], [facility] [place] [address] [phone] Business (1) In 3 days 02/10/2023 Comments: Follow-up with your primary care provider in 3 to 5 days. If symptoms worsen, do not improve, or new symptoms arise please report back to emergency department for further evaluation. In the event that this physician does not participate in your insurance network, please consult with your insurance company to find a nearby participating provider. Patient Education Materials: Dental Pain A MESSAGE TO ALL PATIENTS REGARDING OPIOIDS PRESCRIPTION OPIOIDS: WHAT YOU NEED TO KNOW Prescription opioids can be used to help relieve oflmlsjc-iz-iddpak pain and are often prescribed following a surgery or injury, or for certain health conditions. These medications can be an important part of the treatment but also come with serious risks. It is important to work with your healthcare provider to make sure you are getting the safest, most effective care. WHAT ARE THE RISKS AND SIDE EFFECTS OF OPIOID USE? Prescription opioids carry serious risks of addiction and overdose, especially with prolonged use. An opioid overdose, often marked by slowed breathing, can cause sudden . The use of prescription opioids can have a number of side effects as well, even when taken as directed: ? Tolerance?meaning you might need to take more of the medication for the same pain relief ? Physical dependence?meaning you have symptoms of withdrawal when a medication is stopped ? Increased sensitivity to pain ? Constipation ? Nausea, vomiting, and dry mouth ? Sleepiness and dizziness ? Confusion ? Depression ? Low levels of testosterone that can result in lower sex drive, energy, and strength ? Itching and sweating RISKS ARE GREATER WITH: ? History of drug misuse, substance use disorder, or overdose ? Mental health conditions (such as depression or anxiety) ? Sleep apnea ? Older age (65 years and older) ? Avoid alcohol while taking prescription opioids. Also, unless specifically advised by your health care provider, medications to avoid include: ? Benzodiazepines (such as Xanax or Valium) ? Muscle relaxants (such as Soma or Flexeril) ? Hypnotics (such as Ambien or Lunesta) ? Other prescription opioids KNOW YOUR OPTIONS Talk to your health care provider about ways to manage your pain that don?t involve prescription opioids. Some of these options may actually work better and have fewer risks and side effects. Options may include: ? Pain relievers such as acetaminophen, ibuprofen, and naproxen ? Some medication that are also used for depression or seizures ? Physical therapy and exercise ? Cognitive behavioral therapy, a psychological, goal-directed approach, in which patients learn how to modify physical, behavioral, and emotional triggers of pain and stress. IF YOU ARE PRESCRIBED OPIOIDS FOR PAIN: ? Never take opioids in greater amounts or more often than prescribed. ? Follow up with your primary health care provider. o Work together to create a plan on how to manage your pain. o Talk about ways to help manage your pain that don?t involve prescription opioids. o Talk about any and all concerns and side effects. ? Help prevent misuse and abuse o Never sell or share prescription opioids. o Never use another person?s prescription opioids. ? Store prescription opioids in a secure place and out of reach of others (this may include visitors, children, friends, and family). ? Safely dispose of unused prescription opioids: Find your community drug take-back program or your pharmacy mail-back program, or flush them down the toilet, following guidance from the Food and Drug Administration (www.fda.gov/Drugs/R esourcesForYou). ? Visit www.cdc.gov/drugover dose to learn about the risks of opioids abuse and overdose. ? If you believe you m (more content not included)... [facility] Consent for Treatmenton 01-14 Consent for Treatment [id number] #1.00CD:127 [facility] Physician Referralon 023 Physician Referral [id number] #1.00CD:127 [facility] Physician Referralon 023 Physician Referral [id number] #1.00CD:127 [facility] CBC w/Indiceson 01-15-2023 Erythrocyte distribution width (RBC) [Ratio] 12.7 % Normal 10.9-14.2 [facility] Comment on above: Performed By: #### 2 725428, 7441626, 4773105, 24448663, 1884792 #### [facility] [address] [place] [address] Hematocrit (Bld) [Volume fraction] 45.0 % Normal 37.7-49.0 [facility] Comment on above: Performed By: #### 2 868554, 4856853, 5685637, 26726254, 9791831 #### [facility] [address] [place] [address] Hemoglobin (Bld) [Mass/Vol] 15.9 g/dL Normal 13.5-17.5 [facility] Comment on above: Performed By: #### 2 350168, 3150226, 9184279, 66966509, 4525094 #### [facility] [address] [place] [address] MCH (RBC) [Entitic mass] 30.6 pg Normal 27.0-34.0 [facility] Comment on above: Performed By: #### 2 790736, 9080126, 3162916, 27050706, 9474995 #### [facility] [address] [place] [address] MCHC (RBC) [Mass/Vol] 35.2 g/dL Normal 31.4-36.0 [facility] Comment on above: Performed By: #### 2 917738, 5840472, 6066094, 22578469, 9888737 #### [facility] [address] [place] [address] MCV (RBC) [Entitic vol] 87.0 fL Normal 80.0-100.0 [facility] Comment on above: Performed By: #### 2 027332, 0010325, 9958191, 51867917, 2563397 #### [facility] [address] [place] [address] Platelet mean volume (Bld) [Entitic vol] 7.5 fL Normal 6.4-10.8 [facility] Comment on above: Performed By: #### 2 652319, 7415346, 0375778, 90872150, 5482897 #### [facility] [address] [place] [address] Platelets (Bld) [#/Vol] 299.0 E9/L Normal 150.0-500.0 [facility] Comment on above: Performed By: #### 2 228530, 8693642, 7815262, 99041881, 9885924 #### [facility] [address] [place], [place] [address] RBC (Bld) [#/Vol] 5.2 E12/L Normal 4.3-5.9 [facility] Comment on above: Performed By: #### 2 759273, 8777572, 2022790, 08299092, 9264253 #### [facility] [address] [place] [address] WBC corrected for nucl RBC Auto (Bld) [#/Vol] 6.2 E9/L Normal 4.0-11.0 [facility] Comment on above: Performed By: #### 2 485485, 3197074, 9491826, 42115054, 2912588 #### [facility] [address] [place] [address] CMPon 01-15-2023 Albumin [Mass/Vol] 4.6 g/dL Normal 3.3-5.0 [facility] Comment on above: Performed By: #### 2 483874, 3190646, 8031167, 89868992, 8661466 #### [facility] [address] [place] [address] Albumin/Globulin (S) [Mass conc ratio] 1.6 Normal 1.1-2.2 [facility] Comment on above: Performed By: #### 2 186345, 1228031, 0397861, 96631322, 3500502 #### [facility] [address] [place] [address] ALP [Catalytic activity/Vol] 97 Int._Unit/L Normal 21-98 [facility] Comment on above: Performed By: #### 2 313887, 1696995, 3855413, 65627940, 5771941 #### [facility] [address] [place] [address] ALT No additional P-5'-P [Catalytic activity/Vol] 27 Int._Unit/L Normal 6-46 [facility] Comment on above: Performed By: #### 2 258941, 7134395, 3972409, 61519591, 0062464 #### [facility] [address] [place] [address] Anion gap [Moles/Vol] 13 mmol/L Normal 6-16 [facility] Comment on above: Performed By: #### 2 009262, 1743474, 0055028, 80621041, 3057049 #### [facility] [address] [place] [address] AST [Catalytic activity/Vol] 21 Int._Unit/L Normal 5-43 [facility] Comment on above: Performed By: #### 2 311319, 0120479, 6643864, 01587118, 2373121 #### [facility] [address] [place] [address] Bilirubin [Mass/Vol] 0.7 mg/dL Normal 0.0-1.1 [facility] Comment on above: Performed By: #### 2 231137, 3251722, 2772285, 95338504, 3540192 #### [facility] [address] [place] [address] Calcium [Mass/Vol] 9.6 mg/dL Normal 8.9-11.1 [facility] Comment on above: Performed By: #### 2 341327, 7191425, 5257521, 92393225, 1968334 #### [facility] [address] [place] [address] Chloride [Moles/Vol] 103 mmol/L Normal 101-111 [facility] Comment on above: Performed By: #### 2 474944, 2085402, 7846236, 81982054, 6461674 #### [facility] [address] [place] [address] CO2 [Moles/Vol] 27 mmol/L Normal 21-31 [facility] Comment on above: Performed By: #### 2 802234, 8884832, 6695351, 05437848, 3322549 #### [facility] [address] [place] [address] Creatinine [Mass/Vol] 0.9 mg/dL Normal 0.5-1.3 [facility] Comment on above: Performed By: #### 2 712410, 0913499, 7119754, 38115670, 9214857 #### [facility] [address] [place] [address] Globulin (S) [Mass/Vol] 2.9 g/dL Normal 1.4-4.0 [facility] Comment on above: Performed By: #### 2 068122, 7819835, 4913554, 21713321, 4086839 #### [facility] [address] [place] [address] Glucose [Mass/Vol] 100 mg/dL Normal 55-199 [facility] Comment on above: Result Comment: If t his glucose result represents a fasting glucose, interpretation should refer to the following reference range: 55-99 mg/dL Performed By: #### 2 148390, 6271707, 8856247, 61775589, 3337588 #### [facility] [address] [place] [address] Potassium [Moles/Vol] 4.3 mmol/L Normal 3.5-5.3 [facility] Comment on above: Performed By: #### 2 488435, 9429368, 7710492, 83569435, 2065472 #### [facility] [address] [place] [address] Protein [Mass/Vol] 7.5 g/dL Normal 6.0-7.8 [facility] Comment on above: Performed By: #### 2 778965, 4209230, 5807490, 32944948, 9152802 #### [facility] [address] [place] [address] Sodium [Moles/Vol] 139 mmol/L Normal 135-145 [facility] Comment on above: Performed By: #### 2 063431, 1357998, 4737140, 61538407, 8129371 #### [facility] [address] [place] [address] Urea nitrogen [Mass/Vol] 11 mg/dL Normal 5-21 [facility] Comment on above: Performed By: #### 2 453077, 3644135, 8737453, 50934024, 7059978 #### [facility] [address] [place] [address] Urea nitrogen/Creatinine [Mass ratio] 12 No Units Normal 10-20 [facility] Comment on above: Performed By: #### 2 747475, 5551606, 3190717, 78537201, 8328435 #### [facility] [address] [place] [address] Consent for Treatmenton Consent for Treatment [id number] #1.00CD:127 [facility] Physician Orderon 01-15-2023 Physician Order [id number]# 1.00CD:127 [facility] TSHon 01-15-2023 TSH Qn 1.42 m[IU]/L Normal 0.34-5.60 [facility] Comment on above: Performed By: #### 2 910747, 8307253, 9133048, 74281349, 7270930 #### [facility] [address] [place] [address] Vit B12on 01-15-2023 Cobalamin (Vitamin B12) [Mass/Vol] 600 pg/mL Normal 50-1500 [facility] Comment on above: Performed By: #### 2 224178, 1384057, 6684998, 00795926, 4699046 #### [facility] [address] [place] [address] eGFRon 01-15-2023 GFR/1.73 sq M.predicted among non-blacks MDRD (S/P/Bld) [Vol rate/Area] 120 mL/min/1.73 m2 Normal >=59 [facility] Comment on above: Order Comment: Order added by Discern Expert. Result Comment: [employer] mayra kidney disease could be indicated at eGFR's of less than 60 mL/min/1.73m2. Kidney failure is indicated at less than 15 mL/min/1.73m2. Performed By: #### 2 199051, 5594958, 4339377, 95916415, 8929205 #### [facility] [address] [place] [address] Holter Monitoron 01-08-2023 Holter Monitor [id number]# 1.00CD:127 [facility] Pulmonary Function Studieson 01-01-2023 Pulmonary Function Studies PULMONARY FUNCTION TEST: 12/20/2022 REFERRING PHYSICIAN: Gunner Bell D.O. REASON FOR TESTING: This is a 27-year-old male, never smoked. 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 Pulmonary function test is performed to evaluate for dyspnea. Spirometry shows normal FEV1 at 97% predicted. FVC is normal at 100% predicted. The FEV1/FVC ratio is normal at 79%. Lung volume testing shows normal total lung capacity at 85% predicted. The residual volume is reduced at 25% predicted. RV/total lung capacity ratio is normal. The lung diffusion capacity is normal at 87% predicted. IMPRESSION: Spirometry, lung volume testing, lung diffusion capacity are normal. READ BY: Angela Roberts M.D. lr Dictated: 12/26/2022 [id number] Transcribed: 12/27/2022 cc:Bi Bell D.O. [facility] Comment on above: Result Comment: Elec tronically Signed By: Armando JACKSON, Angela Lawson\.br\Date and Time Signed: 01/01/23 14:59 EDT Cardiovasc Arrhythmia Result son 12-26-2022 Cardiovasc Arrhythmia Results Reason For Visit CINDY is here for the application of a 48 hour Holter monitor. Ordering Physician: Dr. Cesilia Jeter MD Diagnosis: palps, syncope, tachycardia NO equipment agreement signed. CINDY understands monitor is to be returned on: 12/28/2022 Monitor number [id number] applied. Procedure Holter monitor returned without diary and downloaded. Holter monitor printed and placed on Dr. Cesilia Jeter MD desk 12/29/2022 to dictate. This is a 27-year-old with tachycardia and syncope. 48-hour Holter monitor revealed the following: Predominant rhythm is sinus, minimum sinus rate 55 bpm at 12:52 AM, average heart rate 94 bpm and maximum heart rate 154 bpm occurring at 8:49 PM. There were rare isolated ventricular premature beats, and isolated supraventricular premature beats. Longest R to R interval 1.5 seconds occurring at 6:16 AM. There was significant baseline, interpretable. No atrial fibrillation or malignant dysrhythmia Findings arrhythmia was noted Patient did not report symptoms, patient did not report any activity This Holter monitor is within normal limits Diagnosis/Problems Assessed Palpitations (785.1) (R00.2) Syncope and collapse (780.2) (R55) Sinus tachycardia (427.89) (R00.0) Future Appointments Date/TimeProviderSpe cialtySite 02/05/2023 02:30 PM, , DO[address] 02/22/2023 10:15 Cesilia Knight, [id number] DO Signatures Electronically signed by : Cesilia Jeter MD; Jan 07 2023 12:43PM EST (Author) [facility] Family Medicine Office/Clini c Noteon 12-26-2022 Family Medicine Office/Clinic Note HPI Staff Cindy is a 27 year old male who presents for a 1 month follow up. He was started on low dose Naltrexone after his last visit. He has been taking this as directed, without distress, however he has not noticed any difference in symptoms with this medication. C/O right eye twitching. Currently wearing a heart monitor ordered by his digital printer operator. History of Present Illness I have reviewed and verified the staff HPI to be accurate for this encounter. Review of Systems PHQ Score Initial Depression Screen Score: 0 Constitutional: no fever, no chills, no sweats, no weakness Respiratory: no shortness of breath, no cough, no orthopnea, no wheezing Cardiovascular: no chest pain, no palpitations, no edema Additional ROS info: Except as noted in the above Review of Systems and in the History of Present Illness all other systems have been reviewed and are negative or noncontributory. Physical Exam Vitals & Measurements T: 36.2 ?C(Temporal Artery) HR: 105(Peripheral) BP: 140/92 SpO2: 99% HT: 76 in HT: 193 cm WT: 112.1 kg WT: 246.62 lb BMI: 30.09 General: alert, no acute distress Skin: warm, dry Head: no trauma, normocephalic Neck: Trachea midline, no adenopathy, no tenderness Eye: normal conjunctiva, sclera clear ENMT: TM's clear, oral mucosa moist, no pharyngeal erythema or exudate Cardiovascular: regular rate and rhythm, normal peripheral perfusion Respiratory: Lungs CTA, respirations non labored Chest wall: no deformity. Gastrointestinal: soft, non distended, no tenderness, no guarding. Back: No tenderness, Normal ROM, Normal alignment. Extremities: no deformity, no trauma Neurological: oriented x 4, LOC appropriate for age, CN II-XII intact, motor strength equal & normal bilaterally, sensation equal & normal bilaterally, speech normal Psychiatric: cooperative, affect appropriate for age, normal judgement, normal psychiatric thoughts. Assessment/Plan 1. Idiopathic small fiber peripheral neuropathy (G60.9: Hereditary and idiopathic neuropathy, unspecified) will increase the LDN to 3 mg Ordered: [facility] Prescription, LDN 3 mg, See Instructions, 30 cap(s), 2, 1 cap po at HS, Exogenesis, Compound, 193, cm, 12/26/22 16:03:00 EDT, Height/Length Dosing, 112.1, kg, 12/26/22 16:03:00 EDT, Weight Dosing 2. 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, not elsewhere classified) See #1 [address]: [facility] Prescription, LDN 3 mg, See Instructions, 30 cap(s), 2, 1 cap po at HS, Exogenesis, Compound, 193, cm, 12/26/22 16:03:00 EDT, Height/Length Dosing, 112.1, kg, 12/26/22 16:03:00 EDT, Weight Dosing Insufficient sleep syndrome (F51.12: Insufficient sleep syndrome) Ordered: modafinil, 200 mg = 1 tab(s), Oral, qAM, # 30 tab(s), Refills(s) 2, Pharmacy: [id number], 193, cm, 12/26/22 16:03:00 EDT, Height/Length Dosing, 112.1, kg, 12/26/22 16:03:00 EDT, Weight Dosing Follow-up With When Contact Information Bi BELL DO, FAM In 3 months [address] [facility] [address] [place] [address]- Additional Instructions: Problem List/Past Medical History Ongoing Abdominal pain Acid reflux Autoimmune disorder Bilateral knee pain Bilateral shoulder pain Chronic abdominal pain Chronic diarrhea Chronic shortness of breath Diffuse pain Essential hypertension Fatigue Fatty liver Fecal incontinence H/O: migraine Idiopathic small fiber peripheral neuropathy Incontinence of bowel Insomnia Insufficient sleep syndrome Irritable bowel syndrome with diarrhea Nausea Sensation of change in body temperature Small intestinal bacterial overgrowth (SIBO) Syncopal episodes Tachycardia Vitamin B12 deficiency Vitamin D deficiency Watery diarrhea Historical No qualifying data Procedure/Surgical History Colonoscopy (03/29/2022), EGD (esophagogastroduode noscopy) gastric outlet reduction (03/29/2022), denies. Medications Cardizem LA 120 mg/24 hours oral tablet, extended release, 1 cap(s), Oral, Daily, 1 refills duloxetine famotidine 40 mg Tab, 40 mg= 1 tab(s), Oral, Once a day (at bedtime), 1 refills LDN 3 mg, See Instructions, 2 refills losartan 25 mg Tab, 25 mg= 1 tab(s), Oral, Daily, 3 refills magnesium oxide 400 mg Tab, 400 mg= 1 tab(s), Oral, Daily, 2 refills Nurtec ODT 75 mg oral tablet, disintegrating Olux 0.05% topical foam, 1 anum, Topical, BID, 1 refills ondansetron 4 mg Dis Tab, 4 mg= 1 tab(s), Oral, q6hr pantoprazole 40 mg Oral EC Tab, 40 mg= 1 tab(s), Oral, Daily, 1 refills Provigil 200 mg Tab, 200 mg= 1 tab(s), Oral, qAM, 2 refills Vitamin B12 Vitamin D Allergies cyproheptadine (Drowsy) Social History Alcohol - Denies Alcohol Use, 12/17/2011 Current, denies, 10/21/2020 Exercise - Occasional exercise, 08/13/2019 Sexual - No Sexual Activity, 12/18/2011 Sexually active: Yes., 12/18/2011 Substance Abuse - Denies Substance Abuse, 12/17/2011 Current, denies, 10/21/2020 (more content not included)... [facility] Comment on above: Result Comment: Elec tronically Signed By: Bi BELL DO\.br\Date and Time Signed: 12/26/22 16:30 EDT Retail - Clinical Noteon Retail - Clinical Note [id number]# 1.00CD:127 [facility] Consent for Treatmenton Consent for Treatment [id number] #1.00CD:127 [facility] Pulmonary Function Testson 0 12-20-2022 Pulmonary Function Tests [id number]#1.00CD:127 [facility] Consultation Noteon 12-19-19 Consultation Note [id number] #1.00CD:127 [facility] Office Visit (Cardiology)on 12-14-2022 Follow-up visit Diagnoses/Problems Assessed Syncope and collapse (780.2) (R55) Fatigue (780.79) (R53.83) Palpitations (785.1) (R00.2) Sinus tachycardia (427.89) (R00.0) Chest discomfort (786.59) (R07.89) Patient new to provider Lightheadedness (780.4) (R42) Migraines (346.90) (G43.909) Class 1 obesity with body mass index (BMI) of 30.0 to 30.9 in adult (278.00,V85.30) (E66.9,Z68.30) Never a smoker SOB (shortness of breath) on exertion (786.05) (R06.02) Orders Chest discomfort, Fatigue, Palpitations, Sinus tachycardia, SOB (shortness of breath) on exertion, Syncope and collapse Echocardiogram; Status:Hold For - Scheduling; Requested for:14Dec2022; IO Holter Monitor up to 48 Hrs; Status:Active - Perform Order; Requested for:14Dec2022; Tilt Table; Status:Hold For - Scheduling; Requested for:14Dec2022; Class 1 obesity with body mass index (BMI) of 30.0 to 30.9 in adult Healthy Weight Tips; Status:Complete; Done: 14Dec2022 Some eating tips that can help you lose weight.; Status:Complete; Done: 14Dec2022 Palpitations, Sinus tachycardia IO EKG Electrocardiogram- 12 Lead; Status:Complete; Done: 14Dec2022 SocHx: Never a smoker Tobacco Use Screening; Status:Complete; Done: 14Dec2022 Tobacco Use Screening; Status:Complete; Done: 14Dec2022 Unlinked Stop: Magnesium Oxide 400 MG CAPS Patient Instructions Please bring all medicines, vitamins, and herbal supplements with you when you come to the office. Prescriptions will not be filled unless you are compliant with your follow up appointments or have a follow up appointment scheduled as per instruction of your physician. Refills should be requested at the time of your visit. Follow up after testing completed Echo 48 Hour Holter TIlt Table Hold Cardizem prior to tilt table Chief Complaint CINDY SYLVESTER is being seen for an initial evaluation of tachycardia. History of Present Illness Patient is new to this provider. Patient is being seen in cardiology consultation. 27-year-old, is being seen for tachycardia, and syncope. The original referral letter suggest electrophysiology, I told patient that I am not an driver sales, but I am comfortable starting the work-up and referring him to electrophysiology as needed or we could refer the patient at this time to electrophysiology. He wanted to proceed with a consultation today. He is a very pleasant gentleman. He reports that about 2 weeks ago he was seen in the emergency department following a syncopal episode, that came on without any warning. He says that his heart rate was markedly elevated, 140 bpm, but by the time he came to the emergency department his heart rate was down to 115 bpm. He also says he has an autoimmune problem, and is being seen by both neurology and primary, symptoms consist of profound fatigue, lightheaded with any activity, palpitations with activity sometimes at rest, and 2 bouts of syncope that came on without any warning. 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 While at work, he developed chest discomfort his blood pressure escalated, and he developed palpitations. He has since quit work. He has shortness of breath with routine activities. 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 No history of COVID no known history of mononucleosis. Had a sleep study 2 weeks ago, results on follow-up are pending. History of diarrhea, hence magnesium had to be discontinued. Originally started on beta-rachid metoprolol, this had to be switched to diltiazem LA, exact reason unclear, I believe it was side effects. Patient is on modafinil, he says he takes it for energy and it helps. He does not know why he is on duloxetine. He says it could be for pain.. Patient is not orthostatic in office today. EKG today shows sinus tachycardia at 106 bpm, normal intervals no pathological Q waves or left ventricular hypertrophy. Laboratory data from November 2022 showed hemoglobin of 15.2 hematocrit 45 platelets 270 sodium 136 potassium 3.9 alkaline phosphatase minimally elevated at 99 albumin 4.4 glucose 106 GFR greater than 60 Assessment: 1. Multitude of symptoms to include palpitations shortness of breath profound fatigue feeling of muscle weakness, possible autoimmune disorder that is being worked up, no history of COVID no history of infectious mononucleosis no known coronary artery disease. Currently unable to work. 2. Patient had a sleep study done recently results are pending 3. Hypertension 4. GERD 5. Autoimmune disorder 6. Details of autoimmune disorder are unclear to me 7. Chronic diarrhea and abdominal pain 8.History of migraine headaches 9. History of bowel incontinence 10. Possible irritable bowel syndrome 11. Small intestinal bacterial overgrowth 12. Idiopathic small fiber peripheral neuropathy. 13. Low vitamin B12 and vitamin D levels on supplementation Recommendations: 1. Orthostatics were checked and he is not or (more content not included)... Normal PANOSOL Tobacco Screening.on 023 Adult depression screening assessment No [facility] [place] [address] DO Work Phone: Fall risk assessment a) [facility] the [facility] Work Phone: Tobacco use status [facility] b) No [facility] [place] [address] DO Work Phone: Calprotectin, Fecalon 2022 Calprotectin (Stl) [Mass/Mass] 112 mcg/gm Invalid Interpretation Code 0-120 [facility] Comment on above: Result Comment: Conc entration Interpretation Follow-Up <16 - 50 ug/g Normal None >50 -120 ug/g Borderline Re-evaluate in 4-6 weeks >120 ug/g Abnormal Repeat as clinically indicated Performed at: [facility] [id number] MD Selvin Madden Performed By: #### 1 [id number] ####[facility] [address] [place] [address] Consenton 12-07-2022 Consent [id number]#1.00CD:127 Normal [facility] Patient Eval Forms Officeon 12-07-2022 Patient Eval Forms Office [id number] 9#1.00CD:127 Normal [facility] Patient Eval Forms Office [id number] 7#1.00CD:127 [facility] Consent for Treatmenton 11-14 Consent for Treatment [id number] #1.00CD:127 Normal [facility] Physician Referralon 023 Physician Referral [id number] 8#1.00CD:127 Normal [facility] Medicine Office/Clini c Noteon 11-30-2022 Family Medicine Office/Clinic Note HPI Staff Cindy is a 27 year old male who presents to review labs drawn at [facility] on 11/01/22. He reports that these were ordered by neurology, but his vitamin D and vitamin b12 were low and he was advised to follow up with his PCP regarding results. States he currently takes 5,000u of vitamin D3 daily and 200mg of vitamin b12 daily. Also states that his heart rate has been consistently elevated with palpitations, chest pain and SOB. Feels these symptoms are getting worse. He is not scheduled to follow with cardiology. History of Present Illness I have reviewed and verified the staff HPI to be accurate for this encounter. All of his issues are chronic. Related to his small fiber neuropathy. Neurologist believes there is autoimmune issues. He has seen head cook which he states was a waste of time. His autoimmune blood work has been negative. He continues to have days where he cannot move. The pain is terrible and he is short of breath. He did not get the pulmonary function test done. Review of Systems PHQ Score Initial Depression Screen Score: 0 Constitutional: no fever, no chills, no sweats, no weakness Respiratory: no shortness of breath, no cough, no orthopnea, no wheezing Cardiovascular: no chest pain, no palpitations, no edema Additional ROS info: Except as noted in the above Review of Systems and in the History of Present Illness all other systems have been reviewed and are negative or noncontributory. Physical Exam Vitals & Measurements T: 36.8 ?C(Temporal Artery) HR: 137(Peripheral) BP: 116/76 SpO2: 99% HT: 76 in HT: 193 cm WT: 111.5 kg WT: 245.3 lb BMI: 29.93 General: alert, no acute distress Skin: warm, dry Head: no trauma, normocephalic Neck: Trachea midline, no adenopathy, no tenderness Eye: normal conjunctiva, sclera clear ENMT: TM's clear, oral mucosa moist, no pharyngeal erythema or exudate Cardiovascular: regular rate and rhythm, normal peripheral perfusion. Respiratory: Lungs CTA, respirations non labored Chest wall: no deformity. Gastrointestinal: soft, non distended, no tenderness, no guarding. Back: No tenderness, Normal ROM, Normal alignment. Extremities: no deformity, no trauma Neurological: oriented x 4, LOC appropriate for age, CN II-XII intact, motor strength equal & normal bilaterally, sensation equal & normal bilaterally, speech normal Psychiatric: cooperative, affect appropriate for age, normal judgement, normal psychiatric thoughts. Assessment/Plan 1. Chronic shortness of breath (R06.02: Shortness of breath) His pulmonary function test has been reordered. Ordered: Pulmonary Function Testing 2. Idiopathic small fiber peripheral neuropathy (G60.9: Hereditary and idiopathic neuropathy, unspecified) Continues to follow-up with neurology. We will repeat some autoimmune testing. We will start him on low-dose naltrexone protocol. Ordered: Misc Prescription, LDN 1.5 mg, See Instructions, 30 cap(s), 0, 1 cap po at HS, Exogenesis, Compound, 193, cm, 11/29/22 13:54:00 EDT, Height/Length Dosing, 111.5, kg, 11/29/22 13:54:00 EDT, Weight Dosing 3. 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 Working to stop the metoprolol and start him on Cardizem. Ordered: ECG 12 Lead Adult [facility] External Ambulatory Referral Pulmonary Function Testing 4. Insufficient sleep syndrome (F51.12: Insufficient sleep syndrome) He is doing okay with the new ray. 5. 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, not elsewhere classified) We are going to start the low-dose naltrexone protocol. Ordered: Misc Prescription, LDN 1.5 mg, See Instructions, 30 cap(s), 0, 1 cap po at HS, Exogenesis, Compound, 193, cm, 11/29/22 13:54:00 EDT, Height/Length Dosing, 111.5, kg, 11/29/22 13:54:00 EDT, Weight Dosing 6. Vitamin B12 deficiency (E53.8: Deficiency of other specified B group vitamins) B12 given today. Ordered: cyanocobalamin, 1,000 microgram = 1 mL, IntraMuscular, Once, Stop date 11/29/22 15:14:00 EDT, Routine, Start date 11/29/22 15:14:00 EDT, 11/29/22 15:14:00 EDT 7. Vitamin D deficiency (E55.9: Vitamin D deficiency, unspecified) He is to start taking magnesium with his vitamin D Orders: diltiazem, = 1 cap(s), Oral, Daily, # 90 cap(s), Refills(s) 1, Pharmacy: [facility], 193, cm, 11/29/22 13:54:00 EDT, Height/Length Dosing, 111.5, kg, 11/29/22 13:54:00 EDT, Weight Dosing magnesium oxide, 400 mg = 1 tab(s), Oral, Daily, X 30 day(s), # 30 tab(s), Refills(s) 2, Pharmacy: [facility], 193, cm, 11/29/22 13:54:00 EDT, Height/Length Dosing, 111.5, kg, 11/29/22 13:54:00 EDT, Weight Dosing Follow-up With When Contact Information Bi BELL DO, FAM In 1 month [address] [place], [place] [id number]- Additional Instructions: Problem List/Past Medical History Ongoing Abdominal pain Acid reflux Autoimmune disorder Bilate (more content not included)... Normal [facility] Comment on above: Result Comment: Elec tronically Signed By: Bi BELL DO\.br\Date and Time Signed: 11/29/22 22:23 EDT Gastroenterology Office/Clin ic Noteon 11-24-2022 Gastroenterology Office/Clinic Note Chief Complaint f/u fibroscan & labs HPI Staff This is a 27 year old male who presents today for a follow up to Fibroscan. History of Present Illness Cindy Sylvester is a 27-year-old white male who presents today for fatty liver on CT scan. He was last seen for an EGD in 03/2022 for chronic diarrhea. His esophagus, stomach, and duodenum were normal. Biopsies from the duodenum were negative for celiac disease. Biopsies from the stomach were negative for H. pylori. He also had a colonoscopy back then for his chronic diarrhea and the colonoscopy did not show any evidence of inflammatory bowel disease. He followed up with my nurse practitioner and she noted that his ultrasound which was done in 07/2022 showed fatty liver. He had a normal CBC. His ALT and AST are normal. His alkaline phosphatase is slightly elevated at 99. His vitamin D is mildly decreased. His CT scan showed diffuse decreased attenuation in the liver consistent with fatty liver. Stool testing was negative. He had normal celiac panel. The patient reports he weighs 250 lbs. He continues to have diarrhea 2 to 3 times per week. He denies a history of anxiety. His diarrhea can be watery or loose. He is experiencing bloating and excessive gas, worse after eating. He is unsure if certain food trigger his diarrhea. He denies a history of cholecystectomy. He does not drink alcohol. He does not use artificial sweeteners and uses regular sugar. He does experience mild acid reflux. He denies a family history of pancreatitis. Review of Systems PHQ Score Initial Depression Screen Score: 0 Constitutional: No fever, no chills, no sweats, no weakness Skin: no Jaundice, no rash, no lesions, no petechiae ENMT: no ear pain, no sore throat, no congestion, no hoarseness Respiratory: no shortness of breath, no cough, no orthopnea, no wheezing Cardiovascular: no chest pain, no palpitations, no edema Gastrointestinal: no nausea, no vomiting, no constipation, no abdominal pain, no dysphagia, no heartburn. Positive for diarrhea and bloating. Genitourinary: No dysuria, no hematuria, no discharge, no pain Musculoskeletal: no back pain, no trauma Neurologic: no numbness, no sleeping problems Additional ROS info: Except as noted in the above Review of Systems and in the History of Present Illness all other systems have been reviewed and are negative or noncontributory. Physical Exam Vitals & Measurements HR: 111(Peripheral) RR: 16 BP: 134/91 SpO2: 98% HT: 76 in HT: 193 cm WT: 109 kg WT: 239.8 lb BMI: 29.26 Constitutional: Appearance: well developed Skin: Inspection: no rashes, ulcers, icterus, or telangiectasias. Eyes: Conjunctivae/lids: normal conjunctivae and lids. ENMT: Hearing: within normal limits. Lips/Teeth/Gums: normal oral mucosa Neck: Neck: normal motion, central trachea Respiratory: Percussion: thorax normoresonant. Auscultation: normal breath sounds; no rubs, wheezes, rale or rhonchi. Cardiovascular: Auscultation: normal rhythm, S1 and S2; no rubs, murmurs or gallop. Peripheral: no edema Gastrointestinal/Abd omen: Abdomen: normal consistency and bowel sounds; no tenderness or masses. Liver/Spleen: normal size and consistency, not palpable. Rectal: deferred Musculoskeletal: Gait/station: normal gait Assessment/Plan 1. Fatty liver (K76.0: Fatty (change of) liver, not elsewhere classified) The patient was accidentally noted to have fatty liver on CT scan which was ordered for abdominal discomfort and pain. He has no family history of significant liver disease. His fatty liver will improve with 10 % weight loss. There is no evidence of chronic hepatitis B or C, normal AST, and ALT. The patient had a FibroScan that showed no fibrosis and severe steatosis. 2. Small intestinal bacterial overgrowth (SIBO) (K63.89: Other specified diseases of intestine) I would suggest to start [id number] probiotics and we will start him on Cipro b.i.d. for 10 days. 3. Chronic diarrhea (K52.9: Noninfective gastroenteritis and colitis, unspecified) The patient had a normal colonoscopy. There is no family history of Crohn's disease. He had a normal celiac panel, normal infectious workup, and normal fecal elastase. He denied any significant anxiety. His diarrhea could be related to functional etiology and possibly related to small intestinal bacterial overgrowth. He was advised to start Metamucil fiber and Imodium as needed. ATTESTATION: Documentation services were performed after patient or guardian consented to allow [employer] to record this visit. HERI coastal and estuary specialist and provider reviewed before signing. HERI: Hernán Bustamante Follow-up No qualifying data available Problem List/Past Medical History Ongoing Abdominal pain Acid reflux Bilateral knee pain Bilateral shoulder pain Chronic abdominal pain Chronic diarrhea Chronic shortness of breath Diffuse pain Essential hypertension Fatigue Fatty liver Fecal incontinence H/O: migraine Idiopathic smal (more content not included)... Normal [facility] Comment on above: Result Comment: Elec tronically Signed By: Hernán Bustamante\.br\Date and Time Signed: 11/23/22 16:22 EDT\.br\Electronically Co-Signed By: SALAM MD, Chapman\.br\Date and Time Co-Signed: 11/24/22 09:58 EDT Ambulatory Visit Summaryon 0 11-23-2022 Ambulatory Visit Summary CINDY SYLVESTER :1995 Visit Date:11/23/2022 Ambulatory Visit Instructions Your Diagnosis Fatty liver Small intestinal bacterial overgrowth (SIBO) Chronic diarrhea Your Care Team Attending Physician - Adela MEZA MD Primary Care Physician - Bi BELL DO This Is Your Medications List ciprofloxacin (Cipro 500 mg Tab) Contact prescribing physician if questions or concerns clobetasol topical (Olux 0.05% topical foam) cyanocobalamin (Vitamin B12) duloxetine ergocalciferol (Vitamin D) famotidine (famotidine 40 mg Tab) losartan (losartan 25 mg Tab) metoprolol (metoprolol 50 mg ER Tab) modafinil (Provigil 200 mg Tab) ondansetron (ondansetron 4 mg Dis Tab) pantoprazole (pantoprazole 40 mg Oral EC Tab) rimegepant (Nurtec ODT 75 mg oral tablet, disintegrating) Procedures Performed Colonoscopy (03/29/2022), EGD (esophagogastroduode noscopy) gastric outlet reduction (03/29/2022), denies. Discharge Vitals Heart Rate (Peripheral) 111 Respiratory Rate 16 Blood Pressure 134/91 Height 193 cm Height 76 in Weight 109 kg Weight 239.8 lb BMI 29.26 What to do next Scheduled Follow-Up Appointments Sunday. 2022 2:00 PM EDT With: Bi BELL DO Where: [place] [address]-\.br\ You Need to Complete the Following\.br\ Calprotectin, Fecal, Stool, Routine collect, 11/23/22, Order for future visit, Nurse collect, Watery diarrhea, Print Label By Order Location\.br\ Medications\.br\ What How Much When Why Instructions\.br \ New ciprofloxacin (Cipro 500 mg Tab) 1 Tablets By Mouth 2 times a day Small intestinal bacterial overgrowth (SIBO) Duration: 10 Days Pickup at [facility]\.br\ Unchanged clobetasol topical (Olux 0.05% topical foam) 1 Application Topical 2 times a day Contact prescribing physician if questions or concerns \.br\ Unchanged cyanocobalamin (Vitamin B12) Contact prescribing physician if questions or concerns \.br\ Unchanged duloxetine Contact prescribing physician if questions or concerns \.br\ Unchanged ergocalciferol (Vitamin D) Contact prescribing physician if questions or concerns \.br\ Unchanged famotidine (famotidine 40 mg Tab) 1 Tablets By Mouth Once a day (at bedtime) Contact prescribing physician if questions or concerns \.br\ Unchanged losartan (losartan 25 mg Tab) 1 Tablets By Mouth Every day Contact prescribing physician if questions or concerns \.br\ Unchanged metoprolol (metoprolol 50 mg ER Tab) 1 Tablets By Mouth Every day Contact prescribing physician if questions or concerns \.br\ Unchanged modafinil (Provigil 200 mg Tab) 1 Tablets By Mouth Once a day (in the morning) Insufficient sleep syndrome Contact prescribing physician if questions or concerns \.br\ Unchanged ondansetron (ondansetron 4 mg Dis Tab) 1 Tablets By Mouth Every 6 hours Contact prescribing physician if questions or concerns \.br\ Unchanged pantoprazole (pantoprazole 40 mg Oral EC Tab) 1 Tablets By Mouth Every day Contact prescribing physician if questions or concerns \.br\ Unchanged rimegepant (Nurtec ODT 75 mg oral tablet, disintegrating) TAKE 1 TABLET BY MOUTH at onset OF migraine for 30 days Contact prescribing physician if questions or concerns \.br\ Pharmacy Information\.br\ [facility]: [address], [place] [id number] [phone]\.br\ Allergies\.br\ cyproheptadine (Drowsy)\.br\ Problems\.br\ Ongoing - Any problem that you are currently receiving treatment for.\.br\ Abdominal pain\.br\ Acid reflux\.br\ Bilateral knee pain\.br\ Bilateral shoulder pain\.br\ Chronic abdominal pain\.br\ Chronic diarrhea\.br\ Chronic shortness of breath\.br\ Diffuse pain\.br\ Essential hypertension\.br \ Fatigue\.br\ Fatty liver\.br\ Fecal incontinence\.br \ H/O: migraine\.br\ Idiopathic small fiber peripheral neuropathy\.br\ Incontinence of bowel\.br\ Insomnia\.br\ Insufficient sleep syndrome\.br\ Irritable bowel syndrome with diarrhea\.br\ Nausea\.br\ Rash and other nonspecific skin eruption\.br\ Sensation of change in body temperature\.br\ Small intestinal bacterial overgrowth (SIBO)\.br\ Syncopal episodes\.br\ Tachycardia\.br\ Vitamin D deficiency\.br\ Watery diarrhea\.br\ \.br\ [facility] Physician Orderon 11-20-2022 Physician Order [id number] #1.00CD:127 Normal [facility] Auto Diffon 11-17-2022 Basophils/100 WBC (Bld) 0.9 % Normal 0.0-2.0 [facility] Comment on above: Order Comment: Order Added by Discern Expert. Performed By: #### 2 [id number], [id number] #### [facility] [address] [place] [id number] Basophils/Leukocytes Auto (Bld) [Pure # fraction] 0.1 E9/L Normal 0.0-0.2 [facility] Comment on above: Order Comment: Order Added by Discern Expert. Performed By: #### 2 [id number], [id number] #### [facility] [address] [place] [address] Eosinophils/100 WBC (Bld) 2.2 % Normal 0.0-8.0 [facility] Comment on above: Order Comment: Order Added by Lopez Expert. Performed By: #### 2 [id number], [id number] #### [facility] [address] [place] [address] Eosinophils/Leukocyt es Auto (Bld) [Pure # fraction] 0.1 E9/L Normal 0.0-0.5 [facility] Comment on above: Order Comment: Order Added by Discern Expert. Performed By: #### 2 [id number], [id number] #### [facility] [address] [place] [address] Lymphocytes/100 WBC (Bld) 32.3 % Normal 14.0-50.0 [facility] Comment on above: Order Comment: Order Added by Discern Expert. Performed By: #### 2 [id number], [id number] #### [facility] [address] [place] [address] Lymphocytes/Leukocyt es Auto (Bld) [Pure # fraction] 1.9 E9/L Normal 1.0-4.0 [facility] Comment on above: Order Comment: Order Added by Discern Expert. Performed By: #### 2 [id number], [id number] #### [facility] [address] [place] [address] Monocytes/100 WBC (Bld) 6.4 % Normal 4.0-14.0 [facility] Comment on above: Order Comment: Order Added by Discern Expert. Performed By: #### 2 [id number], [id number] #### [facility] [address] [place] [address] Monocytes/Leukocytes Auto (Bld) [Pure # fraction] 0.4 E9/L Normal 0.2-1.0 [facility] Comment on above: Order Comment: Order Added by Discern Expert. Performed By: #### 2 [id number], [id number] #### [facility] [address] [place] [address] Neutrophils/100 WBC (Bld) 58.2 % Normal 36.0-75.0 [facility] Comment on above: Order Comment: Order Added by Discern Expert. Performed By: #### 2 [id number], [id number] #### [facility] [address] [place] [address] Neutrophils/Leukocyt es Auto (Bld) [Pure # fraction] 3.5 E9/L Normal 2.0-7.5 [facility] Comment on above: Order Comment: Order Added by Discern Expert. Performed By: #### 2 [id number], [id number] #### [facility] [address] [place] [address] CBC w/ Auto Diffon 3 Erythrocyte distribution width (RBC) [Ratio] 13.2 % Normal 10.9-14.2 [facility] Comment on above: Performed By: #### 2 [id number], [id number] #### [facility] [address] [place] [address] Hematocrit (Bld) [Volume fraction] 44.7 % Normal 37.7-49.0 [facility] Comment on above: Performed By: #### 2 [id number], [id number] #### [facility] [address] [place] [address] Hemoglobin (Bld) [Mass/Vol] 15.2 g/dL Normal 13.5-17.5 [facility] Comment on above: Performed By: #### 2 [id number], [id number] #### [facility] [address] [place] [address] MCH (RBC) [Entitic mass] 29.5 pg Normal 27.0-34.0 [facility] Comment on above: Performed By: #### 2 [id number], [id number] #### [facility] [address] [place] [address]31 MCHC (RBC) [Mass/Vol] 34.0 g/dL Normal 31.4-36.0 [facility] Comment on above: Performed By: #### 2 [id number], [id number] #### [facility] [address] [place] [address] 00762 MCV (RBC) [Entitic vol] 86.6 fL Normal 80.0-100.0 [facility] Comment on above: Performed By: #### 2 [id number] #### [facility] [address] [place] [address] 15511 Platelet mean volume (Bld) [Entitic vol] 7.3 fL Normal 6.4-10.8 [facility] Comment on above: Performed By: #### 2 [id number], [id number] #### [facility] [address] [place] [address] 38042 Platelets (Bld) [#/Vol] 270.0 E9/L Normal 150.0-500.0 [facility] Comment on above: Performed By: #### 2 [id number], [id number] #### [facility] [address] [place] [address] RBC (Bld) [#/Vol] 5.2 E12/L Normal 4.3-5.9 [facility] Comment on above: Performed By: #### 2 [id number], [id number] #### [facility] [address] [place] [address] WBC corrected for nucl RBC Auto (Bld) [#/Vol] 5.9 E9/L Normal 4.0-11.0 [facility] Comment on above: Performed By: #### 2 [id number], [id number] #### [facility] [address] [place] [address] Consent for Treatmenton Consent for Treatment [id number] #1.00CD:127 Normal [facility] Coding Summary.on 11-06-2022 Coding Summary. CD:[id number] Ww+PGhlYWQ+KY9SOCUiY 25pgBWxgY4tM3VNHUfEI ywgQVBQTElOSyIgbmFtZ U6jhIPoMXSx IC8+NK7lKTZlZvbslFMn d1B3iGL9I26lss5fSZqa aBQ9OOIgQhTjxyoja7fw mXq9XSleAvwjQsMk CJGfzT50JRT5tR80Qd80 xTBkaOOkx7dinNz0KuCw INYdVQZ2jFszEUilh2Fn NYIcT98ngZHxu2V6 IGNvbGxhcHNlOyBlbXB0 nS5uGSwzimbxf6mcdlea Mbe4sk90tYXxr4T0qRU0 G1BuzvH2VQVnqNBh UdcdfERUwD3nkhvlw3ra fkeuMlUkIIBdPGf1KTf0 KLPjnDevTuCmVM67UEQ4 BNKbljAmA4DpFHKu wLwwYnP5p5F0No3IG4LN OvvbK9ACNVKJYBqcdCC+ KZ47dm99D6BcClevJyh1 XHGyTAC4rJC1lF1n KENfNEsix9E8rHV9M0Dv qaBksz9as2zxYBPnUCjw D68ppQWbk3O2EBNvrLW2 WIPcaLrrYwRuqV76 Oyc+ADYosIvmd0FuIqql q7kuw1gqsUu7DhotCDLk txYyxJfhRJI2s6FjYs4g EDMllBJ0pYE8iG5f UsOrOrZ7MBlkN425HaVz pSZuCikhE57rP8EigZK+ QBNlVzi8FODfdQumNN3t Z9IaHWFozrpawJGm eGrfDU6tIHQlgihaGVNi cX2sHPTtO2a3LgWlNgR6 CCgdP3XjKSKwvgalAl97 tY9nVnIqCeS7SJuu B0ZfwhS3CZKdoFKcOZmh QCT3S81ir2W4IIHqYTTm ADX0wMN7nM3zpJcjmecu bGVmdDsgdmVydGlj NInqCZhqD444PKUiyAcq PkNvZGluZyBEYXRlOiAg MDQvMjQvMjAyMzwvdGQ+ XMTlWJX1cIhvHLQw yAErRSplXw9bwZmfaFlv RU0sYQLwhxzdORHttV0v YTYkaQMifQvgAC4nOZKt dctjf742QuBrKRB4 NVXypECaZ5ShnL2mPuXu EXZuUHBwV4NujGPeMPod P616ZPywPuH0AQHqebUr B1YlDKDneWbnOxI8 u4R7Uq7Dv0LbzpcjJ2Pc aMHtUqWeXnorQNm7X7Bc PjwvdHI+HZ21TDSoYU68 GNk8VZR3qCvwPVkm BHBtT8AayO9fKkYkZTIi ZGRkOyc+PHRhYmxlIHdp ZHRoPScxMDAlJyBzdHls SJ1hSu7kFXLeSFCr sCgtdRAvQpYli4siLGEy UAwpAK6fyWfpY4WqsNG5 VYJja4z2Ja29F15eU0Em dXA+MPNflBB7jHF7 bA9wBlYuPmU0BEhlI522 DrFyuIQmIjfuo3cjl8bk rSe3QvL6RCVemzKhaPmg KXO1z9UpVi31O97l IHdpZHRoPSIxNSUiIHZh wKbyvq3abL7pVb3+PGNv vRQ9fFG8hM7mLiTqSyF7 WCqmP387MvRmoREw Dglgr3mrr1bvfGf5PhJk ASRghuEnlUawDUB5r7Zq Hf25J5WbrIgwn5AnMyi4 ig56dCKqd1C8pUM7 Z2XeXABfznracDYvfWtp ZH8xQRJaqgjrMXAwrD7k XZZdJ2n0RgGvMkE0MEwt C9OdfwH9JEOhjKLk QSSqyBSCjY3fkqjhu9fw pwkuRwVkFIAmDIe5TFm5 XYDmmCxhIxVsRBH2VmP7 ZZJ0eYMslB7kjVcj njmceR6pJos+CZL0cMWd jZQUHZ1mRbxxiXJ+PHRk SCI9qJxiLRldKHEqiQ7u ULHyR1f0AsLhLbO1 CFaxA8AbvdF7GCZplPJx RNElaUIExZ0idrzrh6cz bftoHaNsBAGbQDz6CGm9 LWFsaWduOiBsZWZ0 KnU2ZPT9zSZviO7jqBxn borcpG2xVam+QmlydGgg NZO9MIx4J8CqVze6XUIk zRgkZY0daTDbTCrr Bw9ocLyecUwgEH0xVCEw izmaz716GsEjh7kvIUEm sAUfDVqlMHK7Z91bl2R5 QYZmNHPpIMB4rRS7 pW4gyNwxjzrluZJycHok uiDlgYteMJbnWJxrU810 MTWqiVfgCtMtVOo0Y9Xd Nxe4FFDctXyoJT7v cSBcKBpkYz3ryWzkjOxp BV4rMSKpigfmy713ZcGx v2apPVJkuIHbKQgwLNM8 T48td6J5HPZuCCNt GLZ3lMH2oL8ahCkziaxh bGVmdDsgdmVydGljYWwt JClgF078XNKpfBxcXuJq iRy8A3QsYgj2PVYe gXiaHY0gdGFaDXalKd1x kOqqqNafGU9wJGBzuemm d512AmQrb5wkMWWwpJEo HWwqLIW5A83un5V6 HJHjKJSyWKY9cKP4iI2e bGlnbjogbGVmdDsgdmVy rVqyHUcmDKhcI778VOFu cDsnPlBhdGllbnQg BHcdOBl9R7XaUridkDL+ NG16TDIcBQ43eFCovUPh o4pjfYf3GtOmAKUrKVL4 pEfeIOdab4ViMGJm C61lfKWzj5S6NTMxnFpe vDUlGbHwnRO0bS1fSYqh tdwpx8btlgygPjxxp6pl rt23eA43W34yEPeo ZHRoPSIzMCUiIHZhbGln kk3kwL2mGo8+PGNvbCB3 fAF4dK7tNAGqNmX3ZXli R158VoZxiEQqPjcs o0hfl8urgXp6DyU8VJHi hiSytXxzQER6i8DvJf21 Y87qGCytKJArTSTrEICb WGKjjVhosy2obZ9u Ii8+LSBjkXQ5oLS9dF4y FfMeOmU6KNyuZ511XxPp tKQuRiwhA78tZ0UxuSS+ THExFja4ZWMcbIlt UX0spYSkITnhWz5aRIW0 NhSdUmLnOTphG2ZjGJBr lidjdrjllHS8IMQaJVGm yH74Iw2keDykMHKa kZWMbY2gmjufb1zxmsfy YeWaHRAsPEv3KAw3SWDt uXmiDmEyKWI4SmU7XTF7 sKSleP0ymZkqelbx lJ9zZ8MiNMYfqmnmGd27 bV0sUfEsQvO5EGnzQlp+ Cc5ZSAZPJ7zWOJGSHD3Q QVMgRDwvdGQ+PHRk ZAO0mYxgVXwuGZCskN5c WVMtW6d5PjFvHeV0AMum S4IdFJHstxteKq64xJ3x MgAuJsW9BGfkL6Zr haW3DVQjpFBaEAtiSBZ8 B03be1U6SKQgJSHwNNO1 kMC9tR7haQbitbfhhZQq dDsgdmVydGljYWwt VMfbU298NQZnoZrpZfLf MpV4AoR5GHA9Z3SbTht1 AHAkhDraNF0sxOVtCAct Vr1aaOthyOgbZT3k QMHrnzadKCYetF8xXUIy yJKwwRhdJY4dZKNvbeht w860ZcQoTTG7HJQguBXv J3WtmX2aHoQhAHLn DPVjS0TsmNKzNRroK640 PDqwCeE3QKXpwvVqC8Lf NGKlnRlrWaA8o3T5Ks7u NyBZZWFyczwvdGQ+ NDWnNOZ3zDcdLGezJLQw nG3pXMGeQ9x8MjIrGuM5 YRtqP5XwVEZigrlcZm48 aC8tOvLoHcL4JFqo Q7LrjfQ5TVJzbHRmUUnh HUU2V46ze0G1IXYnEKUf RNL6vEC3vW6jvKdykxrp bGVmdDsgdmVydGlj LUejCKjrH219TUKosZak Jc8kgYX2E6TdTnx1OFEy dIljBV8kqQToVPybWz4a aKhdkHwrVR1wALEv naebKCKdvE4iGUOteWUc uZqoDH1vTTYvgbvah913 TxMqTQS4KZAigJSaS4Ga gW9gCoLaYYVmIFFm Y3XwsXUkJNexB291JChs OwB5RYBlswKeX4ShNVCo iLftMeN6i3K4Tv3IaQUw ZZGuTN04LC18VX46 T0QoGpyfnRLrqMS+PHRh YmxlIHdpZHRoPScxMDAl AjLdzUkvQZ8oUq6bPHPu LWNvbGxhcHNlOiBj r4juXMQlGYqqHO6bkQor L0FbpLF2MBNbr8i6Hp33 F16pT7JjqQB+PGNvbCB3 aWI7yQ3pMwKwIzR0 TLhiV090FbTscEZjBbjy h0qgw9ojmUm7ScLuYXXf lzYgtGmkQII1o1NvDl11 W32hXIvbQFLsEBKj HBYqLSZkdXxske8ibZ5j Ii8+FIAnoCD4tHF7xD1f DiKcPzB9SMpvA914SmIw qCApLddoM64pB5Zh dXA+NQCmWna8IFTyoYpm NT1mfHObOZzpOp3pMJB5 ViTxBwIaWXayE5JeJFQc vznnnytmvEO4WFAo OTAntN22Tu9enIxfXq1x ZNXxFJK3AZNuaFGcZ9Tp pU6fLzPdBKFwHFXhI2Uz vTTpSBtgR736ZUsj McU5ILYipaTrM8DeCVDk uYqdCtS3u8G2Mp2XrNae uXRcSS2yXxYeDUm4G4Dj Xzd5QMEmwNjuBL9z qXXmHFloTp9mqKrbuMhf HU2xYMPrizfdm922HmBz t9xsVIUeuAGfZIbkOMG5 L54he2F7SWCaCQWf TGH1yYD1xD2qtPgyyicz bGVmdDsgdmVydGljYWwt ZPlsU040VUWrpZliVkNK Xeb8P0YpJtn6MMBm cBnfZA9doZQsNFslSz9g lXimfFqvQM9oWCEbalmx f665LrZbk5zjQQGxuVYi CBktIUO6W84rj3S8 WNBeSTSaJGD2yKF3hS8x bGlnbjogbGVmdDsgdmVy kScvXHafKLrdW438MRXt aFmvYn4BOze3E2Pr Ubx6TVLkcDyfUP3hgQUk KCkpWa4cvQptfOnwDQ0r DGOuhiyus053GpDrv6dx IDEwcHQgVGltZXM7 B97gh1V0GEYjOTEnNPU7 qBT9mZ7guWigqfhxgXXd dDsgdmVydGljYWwtYWxp F560HDGuxYjpLzHa eWVyOjwvdGQ+YG22xg62 D5OcCcttLtm9UJTwIGA4 pHE4aB2fKRZvFUugm9K6 fEN9F8XkalIvfe5a c9sfOICh (more content not included)... Normal [facility] Coding Summary. CD:830951Otpl87VVi4l Ww+PGhlYWQ+PP6GVDZvX 38zeMIcpC9bA0UJGUoWE ywgQVBQTElOSyIgbmFtZ C1zyATzXLIb IC8+PA6yFYVcRdqwtCSi x9G0vLH2D42vmv3tUFqv eDX1FQRsSdYihnyju1xi tDk7HVnsGvpmEtKv AYSanU53LLR6rB01Si75 qORncROni5pspIf5GvNx UCMkNQS5fShjWZjwj5Xg CHAcJ81hgUAvd2E3 IGNvbGxhcHNlOyBlbXB0 oA6eZOshwuwrm0mzeteq Tvh6id17rILtp2G2xWQ7 H5BbivU1NORvxJTh AudofBINuF0rqzhwl6hv crktAuWbARIgSHw7LEc6 KAQvkIcyUqSxWO44POO1 LDMqxwKlV9KzRFPw aVzzAwD1n6E7Zk4XU5RV QzdjP9VEJUXZRJlikUL+ DK90gu41A7JkIrkvXze1 XIBiJIS2vGM6sP7o ZDZfEOknj8A5rWH9A8Bg mxSzpv4ts3yuMJLcWOax D63boUExh2G3HAQmuWO1 NYAeoHjnHePqaV00 Oyc+PYDkjNvkl4QlPqbj p7kdf3orxYo3PtnzPHJs iiLuqErbCZJ7g3OtIb5b HEWspBL5yQT6uE3v NvMbMnV3SKluW903UuFs vNNeVfjkG26xV6PblXB+ MYRhAxc4ECVgoVwyZX0e E8IzPFXnolyaxHDs gFvuGZ8dGHLjheaxZLNy yC3jURBnI3a6OsOjYyU4 AKgiS6IdBMEadqkeSa88 gD9aGoDoUfS0DVmi J4DsowG6GTTwzOMiXFpw UPJ7X83dk6R7EFYbZOYv FRZ3kTQ1vQ8bgNctmjhr bGVmdDsgdmVydGlj MJwrMHagU534IESbaDwz PkNvZGluZyBEYXRlOiAg MDQvMjQvMjAyMzwvdGQ+ OJVdKOJ2wKgyWCYc oFBqPMdoJi0erWoylRkw YC5zKVTekmjlEIKsmR4q NKRvsOThnEolQG2rUJQw njcyb995WdKoPJN8 OOPndNKgI2SpiA9iGzBs GZXjGALvI7FmsEYmUSpr U261GGnzQlG3YJBqqaTb C7ApHNJeqIvrMbG1 p2T1Mn9Dq0LbuqrrX7Lp uQErUyCoIphzUTc0G5Jl PjwvdHI+GA83RSIwSK54 AJb8QOC2aDluSKco GPFhF3ZsvD6xGjMtPNJs ZGRkOyc+PHRhYmxlIHdp ZHRoPScxMDAlJyBzdHls EH9bMd1sKJOiCXRt yVhipKHpBcYkh4vvZWBp HQxvGV5cbAeoS6DgcWI5 OEFtb3j1Yu58B82cY3Wp dXA+EJYleCL7cNK5 wE0cOhZbDyC4VPcbG349 CiDkjVZdIhbfg7bui1ii dPt9FyM3PXXrdzEqaWoq AIA8c8VmNs81D17u IHdpZHRoPSIxNSUiIHZh vLcuej6cuI0pVz9+PGNv bWG8vVT4dT7mGvXtGqU2 JVxaY225GkPagKBb Lrzif0tnq1mhhMk8NfBo RUWkuyNyeSqkFDV7e4Yv Tb81V4MsaEgty1YoBgw5 ej55oPYjm1Q7aZK0 G4ZyQMQlsuchvYEzsSps NX8gHDHwghtuEJEyiQ6a KIBeQ6d1QqNqUkM7NUdw Q8GosqD4YWMliAFp FDQbwDNJqB6xccvbj8yk zlxaWbSsPLLeFYk2TFh0 QYOamDvdFsJfKQO2EvU5 JUI6iGYkpF5emLrg xkpggD4mHtk+UTL6jYCw aZXNJL9mWxmpiHL+PHRk VZL1eFboPNbtZOQtrS7g XGRtD1t5SjEjZbX4 EByzS6IcdvT5YYTstTYu AKNuaWOAeD2goepip7uf nixnKoTjMVSwAXc9EWf5 LWFsaWduOiBsZWZ0 UuB4JOV5sODjyW1leCtl xlzauQ6uWvy+QmlydGgg RQZ2HXs2M0MvOby3KNPt kYryNR1haXPgSDgt Pk7vuNufwJvaQL0pWUAu rdiuz691LsPid3qlRIJz jGYyKZgrBOY5K55sb3U5 OGYjJZUtLMU1kSZ1 uV1iyHsekotkfAWjkCvr suFsuMesCLcdXDsjE690 YFRgkKmlWuVhQHg4X4Nk Xvp5KIKclIakSR5d xVYkPPdoIi7gkPazsRrt NI0aFMLadrbua174CoBu v2yvPLPssTNnPAwoGAW5 T52cz8G6MVIuWGGh UNV3hXO0rT0djLwnysdh bGVmdDsgdmVydGljYWwt OGpwA044LNMiuTiiJgVj oXp0K1VqRhx4LPUn qOpjVR3tqOEyHKljHt1i dCtekLuySN0dBKRuuzxk i679NqIae0hsTIZqwZIc BFauUIZ6W46tk1I8 GUZnADJyRPF8xCF6uC5q bGlnbjogbGVmdDsgdmVy qMepVRnhZZeyE527FLRu cDsnPlBhdGllbnQg HFugQHk3M9XdLvnojKE+ YU97AUXvBY31oQJftIUs t6auzWd4HuPtEHPiITC1 fNmyOOqiu8JvRXFt X92ehTSpu5E4UKLzoImi uYCwXpGrbDE7eI1bNYyk pryyq2rnyzgcPkonv9lu ek05qF44A22zYUay ZHRoPSIzMCUiIHZhbGln fq7vaM1lLz0+PGNvbCB3 cPX2kA5bQXWwJjL6HWic P000VrTljIWvKyoz c8qjh3hfyWz5DdF6IMOw pnQyrGvmVPP0k0KrLy62 R53iHLkhBNHbHMPqHATk MOUwcAnpjm4iiF9r Ii8+LYAfeBZ8oCZ1jL3n ZwDaFeE3VBpnQ734VoYm iZVuRyneT66wZ7QqoOD+ XVGlCvo9FYOzaZyu AY7wkMJyJCchCq4oOBT1 XfGwJlXaJVdxA2HlMPBz sgphservsDC5EAWqOWRd yF96Id2oeXmmNJJt xXVNoC7dkmitp2bsgvsz PpGsKFFgBLc2NXk3OAMj qYxsUnHaIOY8OjO0IQC2 nZGmlZ1ouEtldroj zT6eM4RxTJWkjdctAm09 zJ5mZbCuPxF4XEfjHsz+ Nb5QKMZFR9eVUFKEMQ2Z QVMgRDwvdGQ+PHRk UTX1uDbvBWygZAKriX6k IUJnY5l9OgUySkI6XXgi P2LhCNLuwyvxZn05gY7y QvQaJlX8FWekW6Es hpT0QAGcfVZmGWngQVX4 P63im6O1JQVaZZQmEOU4 tUG4bL4usLwcprkolMVm dDsgdmVydGljYWwt AUgrQ234SVKqcJkwPoIt OiR3SwG8FTU6O9MeJqe6 NHLxfCgjWI6ynTJqUXkq Ux2ilAnqhPohZM1f VKKtesqdFORzwU3zIUWc aFXyiHbfTC4wJGVevoay w675ZcZqFFT1XAAbpSBk Y4YuwK9oOjFzZZAi PJOlE3JwbUVmAOynI687 EGawKxJ5LDScqmYtJ3Dx SITdvAbzFyX3h4O6Hk2g NyBZZWFyczwvdGQ+ GRLxSDD3oUruJHpwLPUn xD3xXYWeP5s7SmMnPuR7 JRyiX1EdQJXzomsmIf73 rB7pNeEdIyY7LLwx S4XgqtO7LNYdfBHuOWnl TXW7L53oh7F0WCAdTHVl TWT8cFB0oJ9tcVltamcp bGVmdDsgdmVydGlj TRxwJQoqL298LXZlhXpd Kp7zeJJ0G3HvRtu8TGGy mCoiCQ8ooUHuVYzfVo8n fUmddFkeFB8yRJBo hbwaVRBjeB7lXXRsmRBd eFjjRN8lZOVojuamf409 DyQuRBC2ZUCwvDQkH3Su vH9gCcWqSGBzBVCn F7HpfWUdEUwwA840ONdi RcA7MKVuylPgV4DyVEUu jXrfGeA6p9K4Nw0SdOWz IISzSW38HA52OM31 V6IrAccgaOGqaTH+PHRh YmxlIHdpZHRoPScxMDAl UdYwwBmtZG0cDw3mJCMo LWNvbGxhcHNlOiBj k4fyBESyPZxzVT5qsAsl Y2CesQC9BUAce0w0Mb96 M98uD9PafOT+PGNvbCB3 cPZ9wQ5pYaBmWkY6 ULzdR386VhNqgKZuIgaa k4hmf4ufaQf6HfLlHWYn ecWelYkrCOH3h5ZeTr00 Q59mVMjpAXGxLKUe WXPqMHHuuRqorg5scQ1t Ii8+XRZesYY3fNI0dC0l ZhKbBqG5ZPliR721UfDk jLUkEfnmF83fZ9Rh dXA+JYJgNil7PINixHcn CA8nrPHrLExyAe2bDLK1 EnKdKvCsENpqE4IiKRMm jnyahlcfkKG5SYPu ABVihO96Aj0cvWkxCm6a MOPwEPA1ILBfsCYnL0Lu hN7qRlApXNBaSFUaS4Hh oDVyXYomX901WFyr YfL5KSPaauQvN6TwOUQj wHdnHwM8q0E3Pg4AcErq zQMfOM5wTjTdQQw8M0Mn Flp8DYXciBrpUR3h dIKdFIxnAg7vmZysuBvk PF8lMXFupgiis113IjUt m5ibEVGrmRAsOOzsHHK9 T03lg9D9BTNdKZJj PJP7zDT1oU2inSvjfszx bGVmdDsgdmVydGljYWwt SIsbH045ZYJuiNfcSdDI Tkj6I9LgFlx7QXBt sKtaKP7ecKAqPTjqTl8b zMellIfbRT4eWXPzxbrr f972PtFzb5dhEORtiTOl GKaaFXD2U72rd0G8 FQSqNXAjWGA5uNC2dE9s bGlnbjogbGVmdDsgdmVy uTptXZigSXxjQ636QRPi tGoxKa4LXts5A8To Eaa2BVHicIneAB8rvWTe XIzlYb7enYlnxEgiMU5r YVFwcindn262RuFqx8ss IDEwcHQgVGltZXM7 R65aq2E8MURxYLXbOAK1 xCQ9sK9eiLmjlnxhkNHi dDsgdmVydGljYWwtYWxp O268ZKSueMfxVxSg eWVyOjwvdGQ+HM90ca83 J7WnWmxeMpq7RRPxRVV1 lAT7oB7hCIGsNJtra4T7 vBK8T7UgneGowh8q a3gfLOAd (more content not included)... Normal [facility] Postoperative Documentson Postoperative Documents [id number] 6#1.00CD:127 Normal [facility] Physician Orderon 11-02-2022 Physician Order [id number] #1.00CD:127 [facility] Pre-Certification Formon Pre-Certification Form [id number] 5#1.00CD:127 [facility] Auth for Release of Medical Recordson 11-01-2022 Auth for Release of Medical Records [id number] #1.00CD:127 [facility] CHEMISTRYOrdered By: SYSTEM SYSTEM on 11-01-2022 25-hydroxyvitamin D3 [Mass/Vol] 29.7 ng/mL Low 30.0 - 100.0 ng/mL [facility] Remisol Cobalamin (Vitamin B12) [Mass/Vol] 296 pg/mL Normal 50 - 1500 pg/mL [facility] Remisol TSH Qn 1.27 m[IU]/L Normal 0.34 - 5.60 mcIU/mL [facility] Remisol Consent for Treatmenton 10-14 Consent for Treatment [id number] #1.00CD:127 [facility] Consent for Treatment [id number] #1.00CD:127 [facility] Consultation Noteon 11-02-19 Consultation Note [id number] 8#1.00CD:127 [facility] Physician Orderon 11-01-2022 Physician Order [id number] 5#1.00CD:127 [facility] TSHon 11-01-2022 TSH Qn 1.27 m[IU]/L Normal 0.34-5.60 [facility] Comment on above: Performed By: #### 2 [id number] ####[facility] [address] [place] [address] Vit B12on 11-01-2022 Cobalamin (Vitamin B12) [Mass/Vol] 296 pg/mL Normal 50-1500 [facility] Comment on above: Performed By: #### 2 [id number], [id number], [id number] ####[facility] [address] [place] [address] Vitamin D 25 Hydroxyon 11-01 25-hydroxyvitamin D3 [Mass/Vol] 29.7 ng/mL Low 30.0-100.0 [facility] Comment on above: Result Comment: Vit puckett D deficiency has been defined as a level of serum 25-OH vitamin D less than 20 ng/mL (1,2) by the [place] [employer] and an Endocrine Society practice guideline. The Endocrine Society further defined vitamin D insufficiency as a level between 21 and 29 ng/mL (2). 1. IOM ([place] of [employer]). 2010. Dietary reference intakes for calcium and D. [place]: The National Academies Press. 2. Deniz MF, Erik HERMOSILLO, Jaqueline VARMA, et al. Evaluation, treatment, and prevention of vitamin D deficiency: an Endocrine Society clinical practice guideline. JCEM. 2010; 96 (7):1911-30. Performed By: #### 2 [id number], [id number], [id number] ####[facility] [address] [place] [address] Physician Orderon 10-31-2022 Physician Order [id number] #1.00CD:127 Normal [facility] Coding Summary.on 10-27-2022 Coding Summary. CD:[id number] Ww+PGhlYWQ+JB7BATOdF 48sxAOxmF9rX0LGQZiND ywgQVBQTElOSyIgbmFtZ E9xrNJeGDKe IC8+RY3mPADqBaoesFYu d2H8eQM8S36ukk5fKChd sZR0PAEvJoNkjamlz8ek iDy5LXqrHashPsKj CWRerW97BFN2vC41Mz91 wVClbMFrn8xvwBl7YqUy UDEfJVY5bUbfHSdkf6Ch JPHhS89zmRUbn7L7 IGNvbGxhcHNlOyBlbXB0 jQ6mQZakflbpp5qjylpa Myv7wl97oRKmk2E0xGV3 B3QeoyE3UULfiHSd ZkdsiAHDeG8yfkqkt8is ugzeOtMdIUOjWDg2GMv2 PXOahKzcMgMvAF69PPN7 KJNfqhEpN2CsRODa iPtdTgM3n4I8Tu8AZ2UD CnjiS8GIJHZDXRugvPM+ VD13tm49S9KyGhdeDmy5 OCWxUNJ3rYZ7iQ6b GFAmVIsxq9Z3aWD5T6Iz pfVley9vm3uxOCSkVNux W88akBBbr3N3YHWvxYF1 QOKxuVuoVvNcbQ16 Oyc+BWZgeMwrh8MrIksr y6sdg9jwlJe1HqloEBHp xjApjNgrTQX2w6BwId3f ZJYubEO1zLL4uE5w PkFsQhJ2XKbnF191WiMn oNSuSfxsA97zP2WwbRA+ AUKdXbl7ZULvkXfxYP7i S5DnHEIsilvixJKz nXgvSR2cRTUdifvoGRDh lH5dKMGeR2e1MeScVhY0 JXwfT4SwCGKkwbnoTt09 lE6gZuUiXlM3LOzh Y8AqtcJ0QUAhsEFaNKyh BED2X93fz5R2KOUfZIFn RXN1xVA4nB7ykCullusp bGVmdDsgdmVydGlj XLnnVBjsP405TIPozMjn PkNvZGluZyBEYXRlOiAg MDQvMTQvMjAyMzwvdGQ+ CEOxFSL3xDkoDJIs jZFkXYkpUe3kaFpuzSdc LS6aEKBooaqrZMNkkY1c XXRicEXpzQfuXD7yUPHb obnoq980QpOdZFQ8 AXRbrMKxS1KloW7sQoQo KPXoEFCeY2PxlRSkIEqd T360JHtoMgU5FIEphiXn T0DcRDXyeWybPdJ0 i3H2Lt3Hc1NpkpijO2Du sLRjFqSsHlgwCBh0A3Jb PjwvdHI+RO97VYRcHJ83 INq0OTK9vHueBBmc ZKSmL0StpC3tKwUuRACs ZGRkOyc+PHRhYmxlIHdp ZHRoPScxMDAlJyBzdHls BK7rYc7kROAmVSGr sQsdqXTtQkEwj5igXKLe SDuzRT6ytKpgP1YziWU1 HQIng3n0Lx77V00eB4Ej dXA+LCEluVY5nCZ5 zL9vHcAdUvJ3JBirX835 RqVjbHEsSthec1pjj7nj gGo7YqD7RFEqdzVjpHlo EXE1m7AkFs10R32k IHdpZHRoPSIxNSUiIHZh dFvxhz2xzI0dHp2+PGNv lKJ9sAU5qF0nTrAoCrO9 TEqpE137DgLrnHOz Slgqe9ywu8oleFx4LzZi XSUyikOdsDrjDJJ9g5Of Fa92Y6SctHnft1JzZom4 rc61qVPgj1L5vVC6 U8FgEVHsxfdigLSiaQyc RH9zQYJjnkmwUPSrjM2y PHWfR2o4ZuOyGtT4GGch E1TcydZ6CAVpnLUj AYMskPJTtU0yvenqp7at rknsRtFdNWTvGXk3HEe1 USUfsMsjCpXvHJL4XsS1 VZP0fUIygX2pjWkg jdazsY2tDxv+CSX9iYQw yDKWNT1wTrwdqUI+PHRk ALP1rVrmEGmxLZPveB3h JEKdR7y5LlTqDlQ7 BQzsW6MrjdD3KRFloSHh YLVkdNJYjH7wapmuo9mh zowcKnZtOIYuZHi7SVi8 LWFsaWduOiBsZWZ0 IdB2CCO7iGUvtE6unTub grlhjP2sXqb+QmlydGgg PVP2BUl0M2VlTbb5QVIf dMlnYK9wtGPoRJzw Rq6caAocyIaaER7mCJBz usskd025EbJae7spKTTs mNIhCMzhGWT3K54el9G7 BAIkCCHvIYT9vVO7 uV9jxDiildvqgASooAgz kqYsoTcwVMqtRPygK705 GPOorQeyYuXhVRp8T5Xl Bcw5GPKfxBsaPV8u aNEcPEqzWw2mrHznkTjs AC6cUNDvxnphg343UjCg e4aqAJGgvIDvYAjmNUB5 G44mw6B8BACfOQJw RVA6bMR2zU5odTbaecbz bGVmdDsgdmVydGljYWwt QJctM396TGGdtOcpEmTb zSv9V8JrCiu6SXZi qTpxFH9fmLHgAYnzEs5r aYpjgIblAU7wVANunxxg x636WpFrd1cnFULdcURz OPtqRLU6C22pi4Z0 MNZoIDWvUNN1qMQ7gW4d bGlnbjogbGVmdDsgdmVy cXbwRSevFUxzJ744IHYu cDsnPlBhdGllbnQg VTjoXWo2S6RlTbdtvJN+ MO22PEGbRJ41mUNpmEKi j1agwXv8AgMmMEWvIIL3 eYioYUdms5KdIWIc V84rrADql7D3TILqpWev jJNpJeAguUJ3gV4tIPbx rfmno0paplafVxrlo0wt ba38cM96T61mPFyt ZHRoPSIzMCUiIHZhbGln ky2uuQ7wRb9+PGNvbCB3 qNK0uO7wESRfPzG3JOqz L912OjGqeMQhGdtx s6lcq6gmaAk2BtA8PYXo iuKkcHnaOTI2g2XtMu59 H38oKDimCDCpWAQoWOJm TCStrXxpby4rdO1z Ii8+RGKwgCS7zPR1xU6x OyMvPmX6FTawR752CzDf iNTbEuyhL64oP1MwxCY+ SZHcKcj4NZRswTbv ZB5oaGMkMYsaIi8qZDU8 IgDwFqQhUCvmO1CgWHCa watwtaisbWE1VUSpWJHm hU98Nk2agJlbFINj pJAZcJ7pyywrr1skxmqg CoEfOXUaGPk4RZj2TNUb qQkuHmJqQRG0HeM1PAB6 qPOnfM6lzZkuycuf bR7jX9PoWDJfcyfqLc31 aY1lYdTuThZ6AVznWqa+ Rc1WCRQTY1sLZKTQXN3L QVMgRDwvdGQ+PHRk IHT3yVxxTQafJYXedP7z QJRzL8l8XkRuIdX7ONji F9KiZEGoshjvZv34pW4b BdVtOfL8KUtqT3Xc vyK7NVAoxCEtJHpsONP9 K47nt2S3ERCqZRVkQRU9 oVN1dP9mmEjscivpcMNd dDsgdmVydGljYWwt ESzhH441WENzdAzaKhXn AcL8AqX2YVE5H6RxEdr7 XPVkxGakUI8lwUDcUIer Bu4ngYstoZbjCQ7r SCPnhbicROOjmD3yVMUm tYApeVyvWU0cLVRxvtbn e722PfYrBKS6WLSseGHx T2RtiZ4oCgIwVFSt CYGyU8NloTZpBXfpS421 RKpuCzE9EDJglaTxB6Gv TLBbdKzhEaE5t7N0Qn3d NyBZZWFyczwvdGQ+ BUXbTKX8bHepAEclLVCv bE6kYDRlK0h0GcLrRnZ0 HHawC9ZiZTLzhhzbLk02 mY4bRyVoWwU6RAwv A1YamiW6JDUslRGbEDrl SCE8D66mb7R0TPQpVHIo BRG0oQA0dX3znKfypwlq bGVmdDsgdmVydGlj YZduTFblA862RUXmtUgp Ea6eoZL1Y7IaLwd5GXBy wJxdDJ5czKNhKBkeNg3m gPdyaWmtHF5gSXNx wlqdNKQmfR8wQYEgcJCg wPowMP5cEKDdzyrkx146 QiTeULD5OJWdlEUuY9Ey xR4zYhSeSQObHCVj I7KxsGAwSAtfY343MDpu JbJ7EJJompVrW4XuBUPs wCdwMxT6z6C5Jh5LqIGg HIUfGS36WT98OY46 Y5UzEilcwZCxbBU+PHRh YmxlIHdpZHRoPScxMDAl KfObrXagTX1jNo3eBMDw LWNvbGxhcHNlOiBj e9adJWTtBKplUA9lkGii K6EfrXZ8WIVmg1k0Vq93 I09vK0RkjMP+PGNvbCB3 eSL4vR3wVfEkKtG8 JIftZ947LlDetYEgQzeg l7hfm1biiAv5PdByLFGt axGfaLcnMCI6t1HnAf91 L87cUZjjZJBgNBJk IDWcCUNuhQliqg0puN8u Ii8+HTRbwXI5aRA8oW7m XnLyTbN0MNcyU732BeOp qEYfUgiyR53nK0Vc dXA+LXRsSff3ANZqbTnf RD0qkZEoHUnzXw7nJLT2 LzLlXpGsZKaoE4UmMOVf hxbxnowsoWQ1XZPl KFLqaK30Bm9yrVziNc3y ELEnDAF3WMVzbPTrP9Ag uE1zMuUnZLNtUQSkT8Cu vSLyKXuuZ314HLbd MsI7ISNzhmEpJ0EsXZPi eBmcBfT7g2R7Jd0SqSix zNDmCJ8fRbKdYUn5H7Eb Ycx2CPHrqLguMV9t jXKrHIosKi1gmKxdoZzn TV8oQQKnhcsvg290MsGq k0vcNQUpkVHzHSqrVPB4 W38ij8O7IAQmBBQn PNP5yPR2nZ9tsQzlfaqi bGVmdDsgdmVydGljYWwt VKkpE269MNVmcQkkTiZB Iif3A6UsLyd7LDFq dEvpMB8enXYkOTkhOz3m mWxqnHbfUF6zMDBzvbym e195GuOya1ncMNZkwYCg CTsiHIB9X91nc4D1 TOUxIROtPUA6mNW4wR0t bGlnbjogbGVmdDsgdmVy nXdmGDxlCIlfJ951TYGu iXvsNx9FWxp7D7Wd Mkz4NREctVstDO7twWNg XXmkVn3xvUosyKpdNY6x JLFbwqcff229LlKgx6va IDEwcHQgVGltZXM7 T67vz3Z3XPAqFFOjUKG8 pKO0bP7vuAivieqrfIGc dDsgdmVydGljYWwtYWxp W264VYZtkXvaJmRu eWVyOjwvdGQ+DF81et13 D2AlKgtqVvr9KASsEHX7 oMF6eC6eYOAfGDgky6Y4 yDA4I6XlneRnzi1c b8ydGGCd (more content not included)... Normal [facility] Physician Referralon 023 Physician Referral [id number] #1.00CD:127 Normal [facility] Ambulatory Visit Summaryon 0 10-20-2022 Ambulatory Visit Summary CINDY SYLVESTER :1995 Visit Date:10/20/2022 Ambulatory Visit Instructions Your Diagnosis Fatty liver Abdominal pain Watery diarrhea Incontinence of bowel Acid reflux Nausea Your Care Team Attending Physician - Trupti Marques CNP Primary Care Physician - Bi BELL DO This Is Your Medications List Contact prescribing physician if questions or concerns clobetasol topical (Olux 0.05% topical foam) cyanocobalamin (Vitamin B12) duloxetine ergocalciferol (Vitamin D) famotidine (famotidine 40 mg Tab) losartan (losartan 25 mg Tab) metoprolol (metoprolol 50 mg ER Tab) modafinil (Provigil 200 mg Tab) ondansetron (ondansetron 4 mg Dis Tab) pantoprazole (pantoprazole 40 mg Oral EC Tab) Procedures Performed Colonoscopy (03/29/2022), EGD (esophagogastroduode noscopy) gastric outlet reduction (03/29/2022), denies. Discharge Vitals Temperature (Temporal Artery) 36.3 ?C Heart Rate (Peripheral) 126 Blood Pressure 110/67 Height 193 cm Height 76 in Weight 110.3 kg Weight 242.66 lb BMI 29.61 What to do next Scheduled Follow-Up Appointments Sunday 9:30 AM EDT With: Where: [facility] Sunday 10:20 AM EDT With: Trupti Marques CNP Where: [facility] Invalid Interpretation Code Abdominal pain [facility] Auto Diffon 10-20-2022 Basophils/100 WBC (Bld) 0.1 % Normal 0.0-2.0 [facility] Comment on above: Order Comment: Order Added by Discern Expert. Performed By: #### 2 092646, 3174109, 7109661, [id number] ####[facility] [address] [place] [address] Basophils/Leukocytes Auto (Bld) [Pure # fraction] 0.0 E9/L Normal 0.0-0.2 [facility] Comment on above: Order Comment: Order Added by Discern Expert. Performed By: #### 2 516209, 7760951, 9887137, [id number] ####[address] [address] Eosinophils/100 WBC (Bld) 0.1 % Normal 0.0-8.0 [facility] Comment on above: Order Comment: Order Added by Lopez Expert. Performed By: #### 2 961365, 8958714, 5188604, [id number] ####[address] [address] Eosinophils/Leukocyt es Auto (Bld) [Pure # fraction] 0.0 E9/L Normal 0.0-0.5 [facility] Comment on above: Order Comment: Order Added by Lopez Expert. Performed By: #### 2 289292, 3456293, [id number], [id number] ####[address] [address] Lymphocytes/100 WBC (Bld) 7.2 % Low 14.0-50.0 [facility] Comment on above: Order Comment: Order Added by Lopez Expert. Performed By: #### 2 557400, 1066533, [id number], [id number] ####[address] [address] Lymphocytes/Leukocyt es Auto (Bld) [Pure # fraction] 1.3 E9/L Normal 1.0-4.0 [facility] Comment on above: Order Comment: Order Added by Lopez Expert. Performed By: #### 2 618647, 4420532, 7178668, [id number] ####[address] [address] Monocytes/100 WBC (Bld) 4.6 % Normal 4.0-14.0 [facility] Comment on above: Order Comment: Order Added by Lopez Expert. Performed By: #### 2 843613, 3034401, 2002913, [id number] ####[address] [address] Monocytes/Leukocytes Auto (Bld) [Pure # fraction] 0.9 E9/L Normal 0.2-1.0 [facility] Comment on above: Order Comment: Order Added by Discern Expert. Performed By: #### 2 718289, 5504445, 1791560, [id number] ####[facility] [address] [place] [address] Neutrophils/100 WBC (Bld) 88.0 % High 36.0-75.0 [facility] Comment on above: Order Comment: Order Added by Discern Expert. Performed By: #### 2 040882, 5105202, 9982860, [id number] ####[id number] [place] [address] Neutrophils/Leukocyt es Auto (Bld) [Pure # fraction] 16.5 E9/L High 2.0-7.5 [facility] Comment on above: Order Comment: Order Added by Discern Expert. Performed By: #### 2 068583, 0384373, 6668685, [id number] ####[address] [address] CBC w/ Auto Diffon 3 Erythrocyte distribution width (RBC) [Ratio] 13.1 % Normal 10.9-14.2 [facility] Comment on above: Performed By: #### 2 739883, 7504384, 1903508, [id number] ####[address] [place] [address] Hematocrit (Bld) [Volume fraction] 43.9 % Normal 37.7-49.0 [facility] Comment on above: Performed By: #### 2 [id number], 1896692, 3990874, [id number] ####[id number] [place] [address] Hemoglobin (Bld) [Mass/Vol] 14.9 g/dL Normal 13.5-17.5 [facility] Comment on above: Performed By: #### 2 447996, 9017415, 4372456, [id number] ####[facility] [address] [place] [address] [place] [address] MCH (RBC) [Entitic mass] 29.1 pg Normal 27.0-34.0 [facility] Comment on above: Performed By: #### 2 978627, 7932382, 2109968, [id number] ####[facility] [address] [place] [address] MCHC (RBC) [Mass/Vol] 33.9 g/dL Normal 31.4-36.0 [facility] Comment on above: Performed By: #### 2 494315, 6099146, 4214740, 95565135 ####[place] [id number] MCV (RBC) [Entitic vol] 85.7 fL Normal 80.0-100.0 [facility] Comment on above: Performed By: #### 2 423555, 3073713, 1671859, [id number] ####[place] [id number] Platelet mean volume (Bld) [Entitic vol] 7.3 fL Normal 6.4-10.8 [facility] Comment on above: Performed By: #### 2 687089, 8248484, 2707076, [id number] ####[address] [address] Platelets (Bld) [#/Vol] 318.0 E9/L Normal 150.0-500.0 [facility] Comment on above: Performed By: #### 2 448138, 2596692, 5150193, 93702490 ####[address] [address] RBC (Bld) [#/Vol] 5.1 E12/L Normal 4.3-5.9 [facility] Comment on above: Performed By: #### 2 877185, 7386826, 2922935, 83863431 ####[address] [address] WBC corrected for nucl RBC Auto (Bld) [#/Vol] 18.7 E9/L High 4.0-11.0 [facility] Comment on above: Performed By: #### 2 977131, 0555373, 3469066, 70007572 ####[facility] [address] [place] [address] CHEMISTRYOrdered By: SYSTEM SYSTEM on 10-20-2022 Albumin [Mass/Vol] 4.4 g/dL Normal 3.3 - 5.0 gm/dL [facility] Remisol Albumin/Globulin [Mass ratio] 1.3 {ratio} Normal 1.1 - 2.2 [facility] Remisol ALP [Catalytic activity/Vol] 99 [iU]/d High 21 - 98 Int._Unit/L [facility] Remisol ALT No additional P-5'-P [Catalytic activity/Vol] 34 [iU]/d Normal 6 - 46 Int._Unit/L [facility] Remisol Anion gap [Moles/Vol] 12 mmol/L Normal 6 - 16 mEq/L [facility] Remisol AST [Catalytic activity/Vol] 26 [iU]/d Normal 5 - 43 Int._Unit/L [facility] Remisol Bilirubin [Mass/Vol] 0.5 mg/dL Normal 0.0 - 1.1 mg/dL [facility] Remisol Calcium [Mass/Vol] 9.3 mg/dL Normal 8.9 - 11.1 mg/dL [facility] Remisol Chloride [Moles/Vol] 102 mmol/L Normal 101 - 111 mmol/ L [facility] Remisol CO2 [Moles/Vol] 26 mmol/L Normal 21 - 31 mmol/L [facility] Remisol Creatinine [Mass/Vol] 1.0 mg/dL Normal 0.5 - 1.3 mg/dL [facility] Remisol GFR/1.73 sq M.predicted among blacks MDRD (S/P/Bld) [Vol rate/Area] mL/min/1.73 m2 Normal >=59mL/min/1.73 m2 [facility] Chem S GFR/1.73 sq M.predicted among non-blacks MDRD (S/P/Bld) [Vol rate/Area] mL/min/1.73 m2 Normal >=59mL/min/1.73 m2 FT Chem S Globulin (S) [Mass/Vol] 3.3 g/dL Normal 1.4 - 4.0 gm/dL [facility] Remisol Glucose [Mass/Vol] 106 mg/dL Normal 55 - 199 mg/dL [facility] Remisol Potassium [Moles/Vol] 3.9 mmol/L Normal 3.5 - 5.3 mmol/L [facility] Remisol Protein [Mass/Vol] 7.7 g/dL Normal 6.0 - 7.8 gm/dL [facility] Remisol Sodium [Moles/Vol] 136 mmol/L Normal 135 - 145 mmol/L [facility] Remisol Urea nitrogen [Mass/Vol] 7 mg/dL Normal 5 - 21 mg/dL [facility] Remisol Urea nitrogen/Creatinine [Mass ratio] 7 mg/mg Low - [facility] Remisol CMPon 10-20-2022 Albumin [Mass/Vol] 4.4 g/dL Normal 3.3-5.0 [facility] Comment on above: Performed By: #### 2 473513, 4188533, 3250141, [id number] ####[facility] [address] [place] [address] Albumin/Globulin (S) [Mass conc ratio] 1.3 Normal 1.1-2.2 [facility] Comment on above: Performed By: #### 2 525475, 0370602, 7135080, 82135656 ####[facility] [address] [place] [address] ALP [Catalytic activity/Vol] 99 Int._Unit/L High 21-98 [facility] Comment on above: Performed By: #### 2 234977, 2788990, 1736930, 93962960 ####[facility] [address] [place] [address] ALT No additional P-5'-P [Catalytic activity/Vol] 34 Int._Unit/L Normal 6-46 [facility] Comment on above: Performed By: #### 2 274541, 4885781, 5911991, 61005888 ####[facility] [address] [place] [address] Anion gap [Moles/Vol] 12 mmol/L Normal 6-16 [facility] Comment on above: Performed By: #### 2 369509, 6563990, 8071257, 69911221 ####[facility] [address] [place] [address] AST [Catalytic activity/Vol] 26 Int._Unit/L Normal 5-43 [facility] Comment on above: Performed By: #### 2 995692, 0615001, 8142293, 78973044 ####[facility] [address] [place] [address] Bilirubin [Mass/Vol] 0.5 mg/dL Normal 0.0-1.1 [facility] Comment on above: Performed By: #### 2 409532, 4215280, 4091886, 40606640 ####[facility] [address] [place] [address] Calcium [Mass/Vol] 9.3 mg/dL Normal 8.9-11.1 [facility] Comment on above: Performed By: #### 2 454477, 3808264, 0160519, 83214939 ####[facility] [address] [place] [address] Chloride [Moles/Vol] 102 mmol/L Normal 101-111 [facility] Comment on above: Performed By: #### 2 571059, 0721487, 6778701, 93055326 ####[facility] [address] [place] [address] CO2 [Moles/Vol] 26 mmol/L Normal 21-31 [facility] Comment on above: Performed By: #### 2 331930, 7138306, 7137115, 75458595 ####[facility] [address] [place] [address] Creatinine [Mass/Vol] 1.0 mg/dL Normal 0.5-1.3 [facility] Comment on above: Performed By: #### 2 569603, 6388581, 4165542, 20807827 ####[facility] [address] [place] [address] Globulin (S) [Mass/Vol] 3.3 g/dL Normal 1.4-4.0 [facility] Comment on above: Performed By: #### 2 790222, 9741795, 9475440, 83644258 ####[facility] [address] [place] [address] Glucose [Mass/Vol] 106 mg/dL Normal 55-199 [facility] Comment on above: Result Comment: If t his glucose result represents a fasting glucose, interpretation should refer to the following reference range: 55-99 mg/dL Performed By: #### 2 646746, 0450690, 3463050, 14035520 ####[facility] [address] [place] [address] Potassium [Moles/Vol] 3.9 mmol/L Normal 3.5-5.3 [facility] Comment on above: Performed By: #### 2 246510, 6814500, 6352932, 99263998 ####[facility] [address] [place] [address] Protein [Mass/Vol] 7.7 g/dL Normal 6.0-7.8 [facility] Comment on above: Performed By: #### 2 041987, 6152637, 7565266, 70602221 ####[facility] [address] [place] [address] Sodium [Moles/Vol] 136 mmol/L Normal 135-145 [facility] Comment on above: Performed By: #### 2 991682, 4912546, 1297503, 74617399 ####[facility] [address] [place] [address] Urea nitrogen [Mass/Vol] 7 mg/dL Normal 5-21 [facility] Comment on above: Performed By: #### 2 173107, 3948016, 3864638, 28832780 ####[facility] [address] [place] [address] Urea nitrogen/Creatinine [Mass ratio] 7 No Units Low 10-20 [facility] Comment on above: Performed By: #### 2 689433, 2267012, 7129314, 02841711 ####[facility] [address] [place] [address] Consent for Treatmenton Consent for Treatment [id number] #1.00CD:127 Normal [facility] Gastroenterology Office/Clin ic Noteon 10-20-2022 Gastroenterology Office/Clinic Note Chief Complaint Abd pain, reflux and diarrhea. HPI Staff This is a 27 year old male who presents today for a followup from 08/08/22 office visit, 08/09/22 ER, US and manometry. History of Present Illness Patient is a 27-year-old male who presents for follow-up. Patient was previously evaluated 07/2022 for fecal incontinence, diarrhea, abdominal pain, acid reflux. Patient reported during visit with me 07/2022 that he has been having watery/loose stools off and on over the last year with fecal incontinence daily. He also reported generalized abdominal pain that was achy/difficult to describe and epigastric pain, RLQ pain that occurred off and on. He also reported acid reflux that occur depending on what he ate. Patient had previous stool testing 02/2022 that was negative for infectious process. Patient was educated regarding fiber supplementation daily. Patient had previous labs 07/2022 that revealed elevated H&H of 18.0/53.9, low sodium of 132, slightly low chloride of 100, elevated alk phos of 108, normal AST/ALT, elevated protein 8.7, elevated albumin at 5.3, elevated bilirubin at 1.3, normal lipase at 24. Review of record indicates patient was previously evaluated in the ED 08/09/2022 for nausea, diarrhea, and abdominal pain. Patient was diagnosed per ED with likely gastroenteritis and treated with Bentyl, Zofran- was discharged home. Patient had normal celiac blood testing 02/2022. Patient had normal fecal pancreatic elastase, negative stool testing for infectious process 02/2022. Previous labs 02/2022 revealed normal H&H, normal BUN, normal creatinine, slightly elevated ALT, otherwise normal liver enzymes. Patient had previous EGD/colonoscopy 03/29/2022. EGD completed 03/2022 revealed normal esophagus, normal gastric mucosa, normal duodenum, duodenal biopsy within normal limits, stomach biopsy with slightly dilated gastric glands, minimal chronic inflammation, negative for H. pylori. Colonoscopy completed 03/2022 revealed normal terminal ileum, normal colonic mucosa and was recommended to repeat colonoscopy in 2031. Patient had rectal manometry completed 09/14/2022 that was normal. Patient had previous ultrasound of abdomen 08/15/2022 that revealed fatty liver. During today's visit, patient reports he has having lower abdominal pain described as achy off/on over the last week. He reports his abdominal pain had previously went away. he explains current lower abdominal pain is worse with food. He explains after having lower abdominal pain and will have associated watery diarrhea. Is also having fecal incontinence with diarrhea. Is having 1-12 BMs daily. He explains he has some formed stools. He explains he is having 60% watery diarrhea and 40% formed stools over the last 3 months. Reports having diarrhea 3 times a week. Is having acid reflux with associated nausea off/on over the last 3 months. He reports pantoprazole 40mg daily and pepcid 40mg at bedtime helps acid reflux and nausea. Is having acid reflux and nausea that occurs 3 times a week. He explains he eats tomato based products nearly every day, such as chili. He reports he drinks 2 shots of liqueur 1 time every 2-3 months or less. Denies IVDA. Denies smoking. Is taking 1 capsule of fiber every other day- helping consistency of stool. Denies black/bloody stools, vomiting, fevers, weight loss, and denies having any other GI complaints. Review of Systems PHQ Score Initial Depression Screen Score: 0 ROS - Provider Constitutional: no fever. Skin: no Jaundice. ENMT: Yes acid reflux. Respiratory: no shortness of breath. Cardiovascular: no chest pain. Gastrointestinal: yes nausea, no vomiting, yes diarrhea, no GI bleeding. Physical Exam Vitals & Measurements T: 36.3 ?C(Temporal Artery) HR: 126(Peripheral) BP: 110/67 HT: 76 in HT: 193 cm WT: 110.3 kg WT: 242.66 lb BMI: 29.61 General: Well developed, well nourished, in no acute distress Head: Normocephalic/atraum atic Lungs: Normal respiratory effort and clear to auscultation Cardio: Regular rate and rhythm, normal S1 and S2, no murmur, no rub Abdomen: Soft, non-distended, non-tender. Normoactive bowel sounds present in all 4 abdominal quadrants, bilaterally. Mental Status: Alert and oriented x3. Normal mood and affect Assessment/Plan 1. Fatty liver (K76.0: Fatty (change of) liver, not elsewhere classified) Previous ultrasound of abdomen 08/15/2022 revealed fatty liver. Previous EGD completed 03/2022 revealed normal esophagus, normal gastric mucosa, normal duodenum, duodenal biopsy within normal limits, stomach biopsy with slightly dilated gastric glands, minimal chronic inflammation, negative for H. pylori. He drinks 2 shots of liqueur 1 time every 2-3 months or less. Educated to refrain from ETOH use. Previous labs 07/2022 that revealed elevated H&H of 18.0/53.9, low sodium of 132, slightly low chloride of 100, elevated alk phos of 108, normal AST/ALT, elevated protein 8.7, elevated albumin at 5.3, elevated bilirubin at 1.3, normal lipase at 2 (more content not included)... Normal [facility] Comment on above: Result Comment: Elec tronically Signed By: Shelli DOW, Trupti Navarrete\.br\Date and Time Signed: 10/20/22 10:39 EDT HEMATOLOGYOrdered By: SYSTEM SYSTEM on 10-20-2022 Basophils/100 WBC (Bld) 0.1 % Normal 0.0 - 2.0 % [facility] HemeAutoSS Basophils/Leukocytes Auto (Bld) [Pure # fraction] 0.0 E9/L Normal 0.0 - 0.2 E9/L [facility] HemeAutoSS Eosinophils/100 WBC (Bld) 0.1 % Normal 0.0 - 8.0 % [facility] HemeAutoSS Eosinophils/Leukocyt es Auto (Bld) [Pure # fraction] 0.0 E9/L Normal 0.0 - 0.5 E9/L [facility] HemeAutoSS Lymphocytes/100 WBC (Bld) 7.2 % Low 14.0 - 50.0 % [facility] HemeAutoSS Lymphocytes/Leukocyt es Auto (Bld) [Pure # fraction] 1.3 E9/L Normal 1.0 - 4.0 E9/L [facility] HemeAutoSS Monocytes/100 WBC (Bld) 4.6 % Normal 4.0 - 14.0 % [facility] HemeAutoSS Monocytes/Leukocytes Auto (Bld) [Pure # fraction] 0.9 E9/L Normal 0.2 - 1.0 E9/L [facility] HemeAutoSS Neutrophils/100 WBC (Bld) 88.0 % High 36.0 - 75.0 % [facility] HemeAutoSS Neutrophils/Leukocyt es Auto (Bld) [Pure # fraction] 16.5 E9/L High 2.0 - 7.5 E9/L [facility] HemeAutoSS HEMATOLOGYOrdered By: Veena Bedolla on 10-20-2022 Erythrocyte distribution width (RBC) [Ratio] 13.1 % Normal 10.9 - 14.2 % [facility] HemeAutoSS Hematocrit (Bld) [Volume fraction] 43.9 % Normal 37.7 - 49.0 % [facility]eAutoSS Hemoglobin (Bld) [Mass/Vol] 14.9 g/dL Normal 13.5 - 17.5 gm/dL [facility] HemeAutoSS MCH (RBC) [Entitic mass] 29.1 pg Normal 27.0 - 34.0 pg [facility]eAutoSS MCHC (RBC) [Mass/Vol] 33.9 g/dL Normal 31.4 - 36.0 gm/dL [facility]eAuto[facility] MCV (RBC) [Entitic vol] 85.7 fL Normal 80.0 - 100.0 fL [facility]eAutoSS Platelet mean volume (Bld) [Entitic vol] 7.3 fL Normal 6.4 - 10.8 fL [facility] HemeAutoSS Platelets (Bld) [#/Vol] 318.0 E9/L Normal 150.0 - 500.0 E9/L [facility] HemeAutoSS RBC (Bld) [#/Vol] 5.1 E12/L Normal 4.3 - 5.9 E12/L [facility] HemeAutoSS WBC corrected for nucl RBC Auto (Bld) [#/Vol] 18.7 E9/L High 4.0 - 11.0 E9/L [facility] HemeAutoSS Patient Educationon 10-21-19 Patient Education Gastroenterology Gastroesophageal Reflux Disease, Adult Gastroesophageal reflux (JEEVAN) happens when acid from the stomach flows up into the tube that connects the mouth and the stomach (esophagus). Normally, food travels down the esophagus and stays in the stomach to be digested. However, when a person has JEEVAN, food and stomach acid sometimes move back up into the esophagus. If this becomes a more serious problem, the person may be diagnosed with a disease called gastroesophageal reflux disease (GERD). GERD occurs when the reflux: ? Happens often. ? Causes frequent or severe symptoms. ? Causes problems such as damage to the esophagus. When stomach acid comes in contact with the esophagus, the acid may cause soreness (inflammation) in the esophagus. Over time, GERD may create small holes (ulcers) in the lining of the esophagus. What are the causes? This condition is caused by a problem with the muscle between the esophagus and the stomach (lower esophageal sphincter, or LES). Normally, the LES muscle closes after food passes through the esophagus to the stomach. When the LES is weakened or abnormal, it does not close properly, and that allows food and stomach acid to go back up into the esophagus. The LES can be weakened by certain dietary substances, medicines, and medical conditions, including: ? Tobacco use. ? . ? Having a hiatal hernia. ? Alcohol use. ? Certain foods and beverages, such as coffee, chocolate, onions, and peppermint. What increases the risk? You are more likely to develop this condition if you: ? Have an increased body weight. ? Have a connective tissue disorder. ? Use NSAID medicines. What are the signs or symptoms? Symptoms of this condition include: ? Heartburn. ? Difficult or painful swallowing. ? The feeling of having a lump in the throat. ? A?bitter taste in the mouth. ? Bad breath. ? Having a large amount of saliva. ? Having an upset or bloated stomach. ? Belching. ? Chest pain. Different conditions can cause chest pain. Make sure you see your health care provider if you experience chest pain. ? Shortness of breath or wheezing. ? Ongoing (chronic) cough or a night-time cough. ? Wearing away of tooth enamel. ? Weight loss. How is this diagnosed? Your health care provider will take a medical history and perform a physical exam. To determine if you have mild or severe GERD, your health care provider may also monitor how you respond to treatment. You may also have tests, including: ? A test to examine your stomach and esophagus with a small camera (endoscopy). ? A test that?measures the acidity level in your esophagus. ? A test that?measures how much pressure is on your esophagus. ? A barium swallow or modified barium swallow test to show the shape, size, and functioning of your esophagus. How is this treated? The goal of treatment is to help relieve your symptoms and to prevent complications. Treatment for this condition may vary depending on how severe your symptoms are. Your health care provider may recommend: ? Changes to your diet. ? Medicine. ? Surgery. Follow these instructions at home: Eating and drinking ? Follow a diet as recommended by your health care provider. This may involve avoiding foods and drinks such as: ? Coffee and tea (with or without caffeine). ? Drinks that contain?alcohol. ? Energy drinks and sports drinks. ? Carbonated drinks or sodas. ? Chocolate and cocoa. ? Peppermint and mint flavorings. ? Garlic and onions. ? Horseradish. ? Spicy and acidic foods, including peppers, chili powder, moffett powder, vinegar, hot sauces, and barbecue sauce. ? [place] fruit juices and citrus fruits, such as oranges, mynor, and limes. ? Tomato-based foods, such as red sauce, chili, salsa, and pizza with red sauce. ? Fried and fatty foods, such as donuts, anguillan fries, potato chips, and high-fat dressings. ? High-fat meats, such as hot dogs and fatty cuts of red and white meats, such as rib eye steak, sausage, ham, and bush. ? High-fat dairy items, such as whole milk, butter, and cream cheese. ? Eat small, frequent meals instead of large meals. ? Avoid drinking large amounts of liquid with your meals. ? Avoid eating meals during the 2?3 hours before bedtime. ? Avoid lying down right after you eat. ? Do not exercise right after you eat. Lifestyle ? Do not use any products that contain nicotine or tobacco, such as cigarettes, e-cigarettes, and chewing tobacco. If you need help quitting, ask your health care provider. ? Try to reduce your stress by using methods such as yoga or meditation. If you need help reducing stress, ask your health care provider. ? If you are overweight, reduce your weight to an amount that is healthy for you. Ask your health care provider for guidance about a safe weight loss goal. General instruct (more content not included)... Normal [facility] eGFRon 10-20-2022 GFR/1.73 sq M.predicted among blacks MDRD (S/P/Bld) [Vol rate/Area] mL/min/{1.73_m2} Normal >=59 [facility] Comment on above: Order Comment: Order added by Discern Expert. Result Comment: eGFR is race adjusted. AA=. Performed By: #### 2 [id number], 5403954, 6021931, [id number] ####[facility] [address] [place] [address] GFR/1.73 sq M.predicted among non-blacks MDRD (S/P/Bld) [Vol rate/Area] mL/min/{1.73_m2} Normal >=59 [facility] Comment on above: Order Comment: Order added by Discern Expert. Result Comment: [employer] [place] mayra kidney disease could be indicated at eGFR's of less than 60 mL/min/1.73m2. Kidney failure is indicated at less than 15 mL/min/1.73m2. Performed By: #### 2 651014, 9099960, 9565560, [id number] ####[facility] [address] [place] [address] Auth for Release of Medical Recordson 09-27-2022 Auth for Release of Medical Records [id number] #1.00CD:127 Normal [facility] Coding Summary.on 09-26-2022 Coding Summary. [id number] Gh0bWw+PGhlYWQ+PE1FV JNtL72wjEPceR8jT2WJF ElOSywgQVBQTElOSyIgb kNxVO7ezQNjTQYz IC8+LB9sTOAqVyripEDj b3T4rHO8U56erq7gFQkj kWI7ATExOaBvomejb3yl qOc5QAbuYrvbJrAw QRAlyK00TYY4cH52Pk28 gEUxnKVvj0oazMe0LwIz AETlPGQ9yYrlFBvsa7Qi ISAzX37ndFPtq7A2 IGNvbGxhcHNlOyBlbXB0 nR1nUQyqvmfwb8tonkks Knn6sf65cMLgv8D3vBQ5 H4TopmY7EWPdqOZc FtbfeALPaL3etebkd5qb sjtkXkZbGSTuGNx2FYu1 GIVmrVkqFhZdRN97HSV8 OMZbgvYkI6SvJXXa qSomXrM5s5T7Yy1VO3SU SekwS6GOERIWULezfOY+ HI21en49W9MnMplwLvh3 JCQcBXJ7iAF5gM7k LBCcFHley0G8rTN1I0Tr smTwtu7sn2tiYCAiKJir F70gzNWuk9F1HTOihHH6 UATmbFhrYsOlbY02 Oyc+XRKqrAoxu1CeUrpy l6bns2txyAj5UkjuLOAe tdNdvBucBGY0r5HxGq3o EJYnkIP8uSJ2hK5u UoArRzQ3FJluQ963McTa oQQwDbgjX86kA9OweEU+ UCNdWph4TLFgmMarLR1o N1YtTAQnyrvunIZt mPbqYN2hTHZhrxvzRETk vR2rUZLbP0s9FdQlFkB3 CTnmS9UaSNSmckmjIz83 fH6jLoEaWhX0OJpv F9JkapK4QFGxiFApQQjk XOO3D24jb8N4QBJlOKFp JYP2yHU1fZ0iiAgxadvn bGVmdDsgdmVydGlj HUzwXNuiV852JYZgwPtv PkNvZGluZyBEYXRlOiAg MDMvMTQvMjAyMzwvdGQ+ WLDxMEI4bIasXDVk nYUiTDhkWe2vxRfbgEjr GF6oVLVlbkrtFLXkzA0i OBQtfUVrfOavFG4tWHPy yxjsy177ZkXpBHE6 LANmfSNpQ6YlnK2eYqEf FROfGUKjO4LkaNQcCXmi T695PFkxTlJ8YKOolbEa C2QqQRRacWzaRcL3 k2C0Pg8Sp6RpbqdqN7Xu fKIzDtAyVskyLGp4X1Dc PjwvdHI+BG49JHUyEW82 YSa9DKR5sJsoTCrn PUJqG5KcxR9sOaEeEXWf ZGRkOyc+PHRhYmxlIHdp ZHRoPScxMDAlJyBzdHls TY2xLw0cCWBjHITx cKtrtHApRyAbe2ikWXDk KCppRN6cpFnsP6HdkZO4 KUYft3h4Qw08W99kB1Tz dXA+FOBxeCT3tXH1 yI1jDdPhVvA6EPugG417 LmUlaIPqBmzcu2dmu9vv wFk6GrE0GHCbxqOekJcz XVL7r8PmCc64X46m IHdpZHRoPSIxNSUiIHZh xEhffc4fcC3aDw6+PGNv hLP9dLE2uC1bPzTlDuX6 JMfiN385AfKtiXIg Loctv0lww5jfyOk7RwDe NIFuxlDyaMgkMPR9b4Oy Tu58N8McwWorq7XqYzx2 ln05iZWmt0A6lOS2 O5JqTOKmqolqiYEraQtj KA2kXAUhhgmlAVMofQ8l YXKlY7a5GyVnEwH7QFer Q8YrytG0LQDpdZSj OQCoyAIRaX5einiqo3xy noubLwUnOELmUJu2NSc4 ADEgvOuuKiYiJBD0DjO3 VTJ0gYAcxK4doQfx gdjnvL7bDqt+MNB5jPKw zMIGDH0pKwtytPP+PHRk XUB8wBouPWohGISbeW5r DUPgD0d2MpNuQxK2 UBemE5QbgnU9NTQyuTXh KMJfyXDLnH2rfxfbx6li emfyEwYcOGHcXDg3XAs2 LWFsaWduOiBsZWZ0 TjL7YXV7qWFrjF1aiPvv oenseM6vSqn+QmlydGgg AJA7VJk5P5GiMop0LJDu xMqdGL0hqHBiVJpz Gd2gnPoxpTwkNS0yFOOd qxsdb724FxHvd5meTSOv tKSqKPdtTUQ1R48uf4K4 ARLaVQOdDRC5hLS7 wI9cxMhejquciGZlbGux snRfaXclNHimIXsfB292 IILwmCpmQmXkYRm9L0In Meu0RYIhsTgkPE8f eXEcQSjbVm0csYxxuUoj ST9fGXAqbhywg434McLr d6iuOSZwtFQlDBdbFKJ9 B77mr4A5RXCcRJNj RII5sOV2qX4poBaiemdv bGVmdDsgdmVydGljYWwt YCndY124TDSnjSkmCsGp yUf5L6IiKyv6DTNn iPfzUL3mjVPeEWuaNk0g vDskwPhrFS5sFZEbedys k948ZtIzo0qwMZXmtPCa TCozCNW6E06tw5J4 AUSgJDLzYZK8gKI4gX4s bGlnbjogbGVmdDsgdmVy bTcsHAuaTKlsH978BFVd cDsnPlBhdGllbnQg YFzlKCu1O9YfCxpfmRA+ SJ25DDWaYR50cDQrgBWq y9wcpZo4BmJhPFFyKCM9 xZlhKKkbe9YjQXXy S37vxBEjg6W1USZnxPad vZIlTqOjbLZ9jG5fIWgn tdybr7qpchzuBbicx8yo sa31xH96Y93kQDgw ZHRoPSIzMCUiIHZhbGln gr4uzZ3zMw8+PGNvbCB3 fHU6wH9fAFKfQvR4QAxy T429IeUklSQtSrqa w9stm2oijSn2AyS6QQIk ddQvcIxpCHM0o0TiNr62 T31eNCyeNSZvYQPxWKEn OWQhfWutep6ekO5i Ii8+MYRdaIJ3lNU2lQ8x HeKwXqD1ULvcT618CrHs xQDbSuynR46sQ2PhpKX+ UWHoJmy3GCQssTxp CU7hhIZqOTduXo1sSTZ9 QiPwUpDvOHzaZ3PoJVPz uiihpsuxuXV6CTLtUZPt vL95Zo8nvNjlPPAs pDWKhI0granuc7jvoomr CjLdTNAtGGm7XHa9AQBv kZejMwJgZYW9RlU7QCJ9 cXNwfV3wlNeiovms iK7jQ2KcJKEfvrvfDg92 rG8iQnRdPmV0IFmmCjm+ Og8QVCMFI1rQCEALAF8Z QVMgRDwvdGQ+PHRk CHE1ySddVIbhXOAswB8c ZUAyV7c0HbJfWzC2CUiy H6YoVLFikfgpZh41fU1x UvVxZiR0URuwS6Xo bfX2KOYccCIbFOyiGDG7 N80wr9K9BKOsJPHsVJU2 eZF3aP8dmBtbjuykjAYp dDsgdmVydGljYWwt EEjgY445PEFapSyiZiQy QqW5UiY6LUX3S2KhSci8 JKKaoDkbIA5yeNZsVJbu Zo0ulGprtCapEC8x SZRkfeslNGKzlV8wQHXl uCVefGwrDB7yHLDtxhku v183XkRpJES3QYEznGZm Q6DfvW4zEmVgKHZz PEBhX2CmoTCtCMroA585 NQbbErF6YZLskeRkS0Ei RDRgeUnqRgE4f7M8Po5e NiBZZWFyczwvdGQ+ WFMaOML1rQcuNErgZDNh jP6tEUBuQ7d4RoEjFrP9 MHokL2XaNQYyyalgWx07 qL3yKtInGzX6KDix H5HnqtR9WBMzyZHeHTpd NJS0F66wy0U9GNSmECCo WOB1hNP0zB7koGvdicxz bGVmdDsgdmVydGlj RLqcGTwwC286TSLkbXdl Ct4ulKG8Z9BhKeb1ZMCy cDiwCV8fnXIpLJmzOg4f jOzjnCkvWK7ySZFh uovjVEGqmE7pHDIzhDQf lGgiKN7aIXQghlxld111 TgHhJWT6EPVvkAXbW7Fa uP1rOwPiOHIzJMUh D4DtkRKpSNihO150TXts CrK8OLJyoxWlI7UePJXf yBsgYuZ4o7I0Kj6OvSEj PHPaLN67VH40SI02 O9RwMkehtUHctKL+PHRh YmxlIHdpZHRoPScxMDAl JoTvdApfZL0mFx7gAKCp LWNvbGxhcHNlOiBj i4jhPNHnLLfqOE1abMsu X5UzxNT2CEFii9v1Bc46 K75hH9FuvUO+PGNvbCB3 xGM0rB5ySbDbXoA5 ZUopG943TfXefWMoAcrd i3lli0njbPh2BmYzEEWz piHwcRcpVCW0l1MgKg72 M50lRXpaDFUpFWNc MQLwNUUubXuiwa5tdN9d Ii8+RYBygLJ1rFN3rZ8e LpPhXdM8VSblV144IqMb nMLiTezyM09bM7Bn dXA+BMMdYeu3SEClrNqv RT6fsASqABumZo6zJPT2 QoRiXzIvARzzY1RfKYOf drpqrlhirFS8ZEAk TGJuaG97Xw5dfVesKo2l BPCrGNY3GDFwoPBwB9Tl qN5mCcLlPHTiSJSuB2Qs pEFhJNqsE368HLlj BmD1AVLjhrZzZ0DzYUGt dAoxOhM2z7W9Ao5ZyMzq xWFzMT0kKeEmQHr7E3Fe Zqj5RWBlmBbdVP0y wYFqREycRz3gtUapuNnd CP6jEGWapbipq412JhSi y9tsHRPenZQgVUraDBW2 K32up3A2RPJvNLGi RTE7oAP2jE8tuFonhqvs bGVmdDsgdmVydGljYWwt UAovH607VJAofCpdVhHQ Ptt9V5CuHoi6FSRd fKxmUX1vcYOxYEtvZa7a nGepkKphTK4oIYGsubfh f646IdHqy1waTBUfhKPd ZYspBOE9S94mx7F2 GVMvWXTxDZU4aQL6jD3a bGlnbjogbGVmdDsgdmVy cAbpBKdpPNjfS670UWJy pDwoIw6YXgo1K8Qm Cjt7CVYmzTrfHA5awJEj BPvtXq3onWnbqNbaRP6k QOVhicgxm852JiSwe6uj IDEwcHQgVGltZXM7 M41po2H1ZWFvDGUeUGZ9 zDO4xI2ysZuyldtaxLWo dDsgdmVydGljYWwtYWxp S923JYEusZdwCeEz eWVyOjwvdGQ+UM10vu70 Y0FnXqupRiu6HVIaWGA6 aNB9xB4qVOMxSYkhq1L3 iYD4C3TqxfWldy5m b2xs (more content not included)... [facility] Postoperative Documentson Postoperative Documents [id number] #1.00CD:127 [facility] Physician Orderon 09-15-2022 Physician Order [id number] #1.00CD:127 [facility] Consent for Treatmenton Consent for Treatment [id number] #1.00CD:127 [facility] Coding Summary.on 09-06-2022 Coding Summary. CD:[id number]:3619047P Gh0bWw+PGhlYWQ+PE1FV SOyH87qpPFhqG8OE2lKS U3AEXXMPLAJMK0AMK4ol TY9VLkoS5AilcVn EgqgpWTqKD14EVm1HSI8 bXseWGxgyF3lsZNyV9z5 TxZnZM86nG01LNkbCMDr GiQ2WzNmftnspQNf U5zjFeQgfCPfXou+PHRh YmxlIHdpZHRoPScxMDAl KlPmrVycNP0yCg8aVCAx LWNvbGxhcHNlOiBj l1muNNAtUZcmPX2giDtw K1EhgMR7MSItz0k0Do23 dHI+WKKbQPJ5sVqnZSsj y076TkLqs4gsDRC3 eEGiBYjjWID8I91zk5M1 TTApRQKiFAU1eNE1xJ6d hJoardrrQ9AanOQwZvL0 UWX7jQZjkH2gcIvx cglzmX4tBgb+E03PZH9K BJXOYV5JRba7H1WbHwgp dHI+WA33IWYnJI28nBYs yHHep5bokFa4BhTp UCFlLGW6wKlqUGttm4Ff NUXdD80mxMPkf2F5HWJz gJghaJIeQzAlcZP3rK2e AFlhwntft9qfgfam Wctfm7wgqy79kM51I17u MUhuZZRqOHQ3KMJeOANs yObjpx2klS6qPt4+IDxj z8cuu4ydiFv4OeZc EILrkvNogLteWWW9t4Zb Ko50N9YnmUeoe0FuEgk3 um92eCVsy5M7fFW4IMea XHPhlV4uUTmqDsA9 XEPrKvSlyU63qXBpHKat Ns7paAgrhYbhME7xYFDz mhwiXTOhdL3eVBMmuBWd zPaxJF1qZAUvvgjz f523NeRrEEG5JNIzqYIk M6XleD4fVmRlOCDmWRYu R5GhgAWdCNueQ272ACox NuC0LCGywnJuC7Cp RCDbkNqbBrR2g3V4Xo8W u1XxweaiCKY1VTpiDDOa NjJqFhFbRyC6J7GqYhe6 DICpaSrtKX1wS0Qc BQRtxadszskdvCP8UNLj QVZjpG32cGJiREryLc1z y4M9g472DOFfEMQnaV54 Xf3rcKycWNDhhUOS bJ8fmmxqy4uvrvpnScNo EEHaLBt7DRj9XNAeaEqd MdLqPJY3YqQ0YPE9yQXp tV8qzFmpfqharJ2y Oyc+P11apN3wABQ1ZBQ6 ogrxMNLcndQzBA23SY65 J5HiMcfzbYKijPY+PGRp uxKelPldTW7jSsZf q0vyn8YaGYniY0HgGYAy JFgcNzg6BIJqBSV1dGP5 iE7nUFKlFIwpf4N0xHQ9 W5UcipYkbs7tb0bq DYCxZGrtF00mkGZss6O1 YDUchKN3BTQuaVzzUeKh uL46Mzo+LPAzaCgpc0Px Cmupr2crp4freCz9 IjMwJSIgdmFsaWduPSJ0 t8HhGe33D77eNUpkVSZy GFYcKMBhKAPpdQajye6q oF9gRg4+PGNvbCB3 bUF8eQ6kXQKaBoH2PSfm V218GoZneSWpBhuny4sd k0fjqDk3SxCeRDGylqYd uWxsKFU2q9IiVm60 T76kGWiwUKRwQWQwEFRa IQKnvXhfer4yiR1hXc0+ KZ8az1arlg85xS76yQZ+ NDEgIVJ0lKjqFKjq EFLemD3nZCcwZvA0LXJf WeQmzI94wSIkBSqdTo5l aCoaaJulFJ2bOBWzzwsg c346EvJie6phQHEb yQPbOYfdMKT3L90pr8C1 FSCzAKOyUWF3aHT8qW6g bGlnbjogbGVmdDsgdmVy iKpcQSrkXIllI030 IHRvcDsnPlBhdGllbnQg RpZaTJw4K8AtDew6BNIe fTykAT6rbZQoOVvqVe8p eNqkgWfbEE1xXPIi nonup578GaMqt9fiHTPj oAMvZVvqZJZ7U50sy9D7 RBPqNBXqKQB3vTV8xV6b bGlnbjogbGVmdDsg deJgzPjnEUefLLvqF000 IHRvcDsnPkJpcnRoIERh gXQ7UI91IW06eNVpe4E1 gXJ5V2DmIDNwmsjy hhchkXI5BSMyJZCmdF32 Pq9yfPqeJf0wUKDrPEE7 OMPleZQnJ4EtpR0lJcSv SCSoGKRvY0CsyAQi DLvtL459ESpcBfK4ZNDi uySyR1IjXXQzhKioRxK2 f2S3Bi1WR4E8SB37RP25 qGAvm8G6cYA1Y0Sa HPIjivdznnfqbPK9SDGl QACnjE17Pp9zoLhfPr7h BCVfGJU8BSSwoXFfN0Zh bN4eDyCbJGGwKAHp I9FreSLcXDvwG833DJhk NaA4QTDgaxIkN3CzIFNj sHwvRdB3y9J4Lq8GSMi7 XL24KU01wXSxm4P7 mHB2M4ZwVQOkdfxzanos fJR5TKIcARUdtY99Td8h aXtdAu0dKACfRZE5TXFl aSYjU9BpdC6xVpHt LCHtUNJnV2DllHIsLZzx E294NOnmKcG0DXTxcaWc D8DzXLUrvJnwWaZ6l7J2 Un0NWRUrXB55XWH0 dOQ7FD33IG22Y4JvZmtn dGFibGU+PHRhYmxlIHdp ZHRoPScxMDAlJyBzdHls YW8nEk6yKQLzVGMw xQekwTDqUtEzq6xnKCQr AJmeKX4ttLhcO0RmtFP2 GTXgq9s8Kl19D07hL8Pa dXA+RYRncIB5zZT1 cO8yOvNbRzI9BCcdJ510 YuHclCVxIlyzy6npr2zv rDp3FrW9TIBoecEifOxu KHC1j0BkJn57Y13f IHdpZHRoPSIxNSUiIHZh nGgxhx6pjG4aXl7+PGNv nOX0eQD8eH2sUnMiWgF9 JYbjV420ZiMgzAIw Mgjiu9lkh8kbmWs9YmKr ZBQwtpMhiEcgNCI7v9Rq Vz54J8JtzRmdf7ZcZht6 gu40kBVhw3Y1fNA7 Z4RkBYXbmphevTTurCxu LB7uYRAjbodaMBFmyX4d YCDxU1c9EmZnYbY1EYfv N9XqxnE2OKKvgLZk HAelDPI3I44ya9Q5WOKi PYOuDFI9zMR3aX4zoLhq bjogbGVmdDsgdmVydGlj QHswDQswA255ZREb gAzdZBOzsC2vJTEdoRJl gQqzSH1rNEWkbgdgIgQB QVRSSUdIVCwgVEhPTUFT WBB9S3HtTrz0HQFj hSbrHA2zhPNjDUxqDt1a oOvtiUixPW0hVWYuvesv CPNduU7tZKHisZFqoKfy LS5lEDCaljrfp821 OnEcUDA8MFIdqUFyS9Eq aW5tBtImZAVgXYRoR9Nb wZCfKVazS178DYkzUmR1 HYZxrtLpH0KyXHJt hIdeCuF9y0C0Aw1cIq5w UL4sKLy0VB16NQ91wKBr x4Z6aWR1K8GsPPOzeleq hozbdHG2OUCdKISs nA86wFMdSAxmTe7el4L4 z308SGWxPKRpdJ65Sx5g sQwyEDXxwNFOaJ9tlunr c8paqncpXuMnAHCn ONn0WMs7PTBrvOklVcZx SMT0EjO3HJA9bAXpzI1z nZckqulerT0kIcl+MjYg ATEeuyG7B7LmJnh5 GHEsqWggNR5wkWHaGMip Sr8kyXuffZkbQP1fCDDw orncMPLeuB0qRVGptVZj rZofST5wCXNsvcou f853ZlXqXLD7KWIwrDBz F3HjgJ2qTvOkOFPrSBGe X4OdtNKiRSiyJ648KHoz SzO2CNIdjpBfJ6Vj TTKrpKlmBaL9b0T6Oe7A FYmbUN70XX53eQQhg0Y8 uVY7K7OpHTHqxirltqck hEU2SYVlHLYbdG64 tRGsGIlhNb7me7P4r658 LQOfLFBlzB53Ve6dyVxk TDHdrJDVpF0kkkorv8sa cjogIzAwMDAwMDt0 XHe3VOWvuTnlFfNuZLN4 AuT7VHX8vZHlxP7loScp anlszL2aCsm+Y3K9fXM6 aWVudDwvdGQ+PC90 th65F5XjNcyuUup9IMQl MPI9pNB0hY7hGVTeJBhe n3U0uRY1F0MklpPnlj6r q6dxINWtHFrcE55v zTTtk1Z9QWMchFF4HWTf qSgnCmBwbO87Buc+PGNv qGvbq5TpUjicc7feo6on jMm3AvZbYQXwdkIa dXkcFIM9r8SuLq08J61j IHdpZHRoPSIzMCUiIHZh wRxpkk2ioY9yJk4+PGNv fXY3xJR7mC0yJiYk DaG9XMoaP393BhBodBMp Achaz1ojn1pdwNt8EjCc NYCmdzZogOvtROM3k5Ui Pj10N8JotXdgk2Wb Kfd6oo67hSXev0N6pYM9 Q3UoIJTlxrgnnGGsbAlp SN6rIAQhykhuGFEwtG5o SHAxI2j8CuIgBtL6 ASfgF5FrcjD3XYBtfHBu NJOrbLJSiQ9xntipy6jo jqldZeJdGCMxVUb9FLi5 LWFsaWduOiBsZWZ0 BmS5LDY5mJOgaH8huVqi ybzvuC6qIkb+YEz0c0px dMApYV4vyTN9TA25EX87 tOWxy4E4mFM8L7Ui DYVeewzlbtnwhUV8INVg NGMekZ33Ev3zdQyyWj1g KJSfDME1JVNeaLYoV4Eu eR4qDvWuJRTrZSUn U4VahAGlZYrmC793RZzl MmP0AJZybqToD6RbRWHm gNuaExN8f2H3Jp0FMQ27 YY17NZ20fDKej9Q0 mIJ7R8NiGGFnlahwlkbf aRS0XGUlDCCnwP09Uz1w dKedZi6aUKOnCND5MZBb qVWqX9KnzG0yQrQh TTPeCRBmZ3NhzRWuNYko N143XHhgXlE7FVWitfLq R1LsPKMnrRflHgY0q0N1 Gt9ZHp97AH05JP06 wBUmb0H0oAH4Q5VeLHTg schkcbfywPW3VTKmGIPi wH65Yw4ghHliTx3vQZXr MHY0GWGtaRTcG2Dy rV5aQyYvHVLjYGDbV2Wd qRPoQBxkR316KHjtFiK2 LGRepaSlL9NsGBAqeNgm FsQ1k5N6Qw6BIOqx mjs2D5AhHpvcmVP+PC90 BPZzUX40uUUvwVBhd9gz zOo3SgFdKRKdZXE7hExc PSugg4VuVBOkB45h bGFw (more content not included)... [facility] Consent for Treatmenton 08-17 Consent for Treatment [id number] #1.00CD:127 [facility] Consultation Noteon 08-29-19 Consultation Note [id number] #1.00CD:127 [facility] Physician Orderon 08-28-2022 Physician Order [id number] #1.00CD:127 [facility] Coding Summary.on 08-25-2022 Coding Summary. CD:[id number]:[id number] Gh0bWw+PGhlYWQ+PE1FV DGyU11jdOUaqM3FX2uYC G7ALBUVQNBPHC4MJG1fe VX4RHphY4QxiyId IzsaiZEwVY89DWu9CYB7 rFydKQhztU4fmLQeA2w2 VcGfST21sV80NDscDYZk ZlM9FtTeihtfdDOv Z6ydBnAzrYUiMtw+PHRh YmxlIHdpZHRoPScxMDAl BzMruSrfFR9zEb1zNSTf LWNvbGxhcHNlOiBj o7qtKKPrBMokVG8aeQll B5LyoXM7ISBtm2w5Fb97 dHI+AEUoTXV0uMtsCYub d726TlSfe9ijBEV2 hPXfVNgwIUX0Y66ds6K6 LZCwKSHsGGX5cLI3mS0d gSjgzvajE0NuvUEzNyS6 CUX9eGUxgL0njVwi jvgvcN8fVnm+O39QMQ2I ZHOACJ1JMwp9B8AdKgwg dHI+UC68ALAyUW40aZRr bBPwz8hdvWl6HnSw DJTkENW7tLvpUWxpd8Nb GXXxA33roAPlw8Z8ROHz tMfpeIXaZpUroEO0hO4s AMakeroti4ofzphp Fzyoj6synb41jT89M99u NNyoAGRhHNC4LNHxYWQu cRboqa5kkA9hAu0+IDxj b9cqd4vrkCp6WqIw AAKjqjKnjSgsNLH3j3Iw He94L5QzjChxb9WzNuu8 ut00qVNok0V1qAU9BFds BHEzdF7cTEovIzG7 UKSzCdSjfB47wPRoUKfm Ht8qqZgytZmuLD5mOEEt ckvnLFZkhK1tECOpxACp vZmbVY2aSAIkrbjk c688JxPuOIG3KRIxmLNc O8UssE3hWwKqJIYyUFZa A4TleJFoPAbrF393XNxd BtT1MGNjpxLvS8Qz ERBteOunSyG2o9N4Ti4X c1NztfgiZGN9UOevZHMj DsAsUiVwCmX1I0HePkf0 QZGmvPspFI4mP6Pp XZHfdaqxmhcypPB3OYRv OQUxxH52eWMxMVnmCc9f x2L8o020EKDjCXLlfK50 Rm5vgUtpKVUsaYIO mI4lnkfdo6jsxguwYuWs ZAMgUXr0HKp2TGLisJlp OyAsHDK7ZtZ7MKI4pKRc tS8srRompjzoqB3o Oyc+Q76xiH8hZYU0HYB7 lscdBFXgeyClKG55UG61 S4GcAtqdvCZdaUT+PGRp tyOszUtnOI1nDyPl j0zwh5CkTHisI4EvSJXb KPvvGlp8OJCfIMH0lTY5 aG3cEVUzSVuoo1U0bFC3 G0ZlstHrhx0kn8vn TLTtNWwlV63ycAPmy1L7 RIPdaXF2DETzgQzpLrPg qM73Arm+EPMylOvpv1Zb Xkucp1nnf3qxpJw1 IjMwJSIgdmFsaWduPSJ0 e7CbHv51U80sEUltROLn LFWfFZDzHYNaaZcgmw3n fO8gHo5+PGNvbCB3 gXR4hD2vJXJyLnH5HFii T415SpTldYCiAyccd2yt n5jlsVx2PkEbLMRozfDs gFmhXRH1q1XjBz83 O19wBWcuHPSbRXPcJWTx BARapVwdma3quD6oBm9+ GA9jh2dazy18hK97yYC+ KWElLXD6bEtnGKka JSIxeU0nXMnsRfE9ZWDf VgSkiK14qVPtEAayFk0s jKonyUzyPK3eTZTpbsul z195KrDhu3mfUHAt zHOvPAwvYPI7W66cc8V4 ZCNoOPJfDCA6dXL9dC5j bGlnbjogbGVmdDsgdmVy xGleVGqcWDshY470 IHRvcDsnPlBhdGllbnQg IkXyDMp0E4MkLpo2YVBe tTgkHU4ieRVyNFjpOg3n sCeziPtuCO5hPNHy zlqcq879RbJcw7fnCGGq dAHdXHveTPH2L00hl6H6 YURbVANlKFX3aUV3xW5c bGlnbjogbGVmdDsg seOnfRgwXGmhEPggA800 IHRvcDsnPkJpcnRoIERh qWI7IG03NW60dHNei3G4 dWG3P4XcQEIxqjhl eneeiCQ9XWOySUXeoJ78 Fd6joHesOe2yOPFmWAS0 LRYgoVVqL4CvwC1dJvEq VXFcRTOyE1YmqFMi GGdoM166NSmfXmV3QQGv owTkG6BvNNLmgIplQdB3 o6Z7Xe2QT7L9LF33SI86 nJQan0A8gAQ9Y5Zk VGAqcwiaucrynSA5MILh VAApuU84Ur8gdVnqQj9k PZQrOSU9BDJtaYGbS4Ps lQ8uXtVkGTIoNTYn U5VagCMyDWuuY259VOar JgI7FOJzvdUcY0CuUFPt oYmoMrF3k7B6Yt5YBQs7 DL58JY35kTHzm9J7 eIR8L7GwWJDjljulprvh dAX4QFQrTBFuqQ26Cu2b rRbuAk2eXCLmHMY7ZSOn iBAaY2YonC7mQyBz ATEfEVHuO2XziHMjMRbg T272XChzDvZ0OFJwzgJr H8FrCONcvKabYuY9x3Q1 Hw5DLNZmLW29WTY1 gUQ3WX43RC34C9MzJxwa dGFibGU+PHRhYmxlIHdp ZHRoPScxMDAlJyBzdHls WU9cHg2uBCAtIEZj vRrszPErVuNzt9axSPXo SUnxQH7svMbiC2RuaRI2 QZOuh8j9Io68Y43hK4Wx dXA+KNChnOB0qUI9 gU2rGbHtTdR3WZfvO677 FfNghQIwQixpi0wuy7un iLt5FkI5OAPeyuFolUhr JQF6r8CoJr48S34o IHdpZHRoPSIxNSUiIHZh oVioyr2raC5lAq8+PGNv lPQ4xBD9oC3gFzRkDrM8 OVcyV557ZuJwqMGq Wrxsl8fqc6kddBo4OkLs IJKbugIukSgmFHY3h8He Za94W4VwaFrmt5JjCmi1 lw37wUYgl1T8zCF3 K3SyLGWnpaojyTKuuAkm ET4bYQMjdfsfHPKrnF4t ZGOnZ6z1LsDpIhO7HGod Z6QfmrD2JSMrjMGp YIddLTS8J05yb1O0RMGc SOGpVVD9iIY9dD9bwAdm bjogbGVmdDsgdmVydGlj UArgDAmiT698KMFo bWigSRVomQ6xVKNluALj aVgaPZ7iKZVoodijHpFO QVRSSUdIVCwgVEhPTUFT JWL8T7DpCpi1WGPc xZwjET1wtJVkBZgmMo8n wBdaaQnzQN3qHYUqxovp PYHmmZ9kCLJroLKgzKii CW4iPENtzszau864 HvWqZZK4UPDnxZEaE1Uq xU3tKeGyNSKtWBBqT4Dh vDPrXCqdY554ABexYhD5 RZDuxmMgE8LtDELd kVjyFyR9t8Z1Pe5qEb8a AI7dUOx8DW00VY30rTYd m1X1kQI3N3HeOLTpiybn rsdizXY5LVHiMKPc eE94bSEcQZzlZy8hi8B1 y186JZYfSSJbdC24Rd2p rGunHEVnxDYKuP7khftl c6cbqdgiAsGjSFRk OYh7ADv5ZAWwqRknScWs GQX6HtQ6KTU3wBFpuA8u yHqokbkuqB7aNzg+MjYg FRCkrqG0J1OxKbg8 QDZsiKjrAA5jvSBiKKid Dq5sdNtteQvzFC7oYOLm dbxbFXKsiI6qFHCoqWQk cGwdBZ7gXNYidvfp o926SaZsESR3MZBcmPQq Y4LqbC0nUdBjYQOyYQGo I2WkqDLqDFxhD135RGyr OrX9LOTudjSpU5Xv OLWoqKdxTwX0x0B9Vj8V EBhtFA58DO67tCLcc9J3 xOU8Z7NtLWFiyqnrtqsr nFP6LXMcFNSizF48 mUVoHKawIy3jf6D8b663 PIKtUZHsnV31Un2azMzd HWOjwZRKaQ2hnupjv6mn cjogIzAwMDAwMDt0 MHx4CAEplRsqDwSmJNO5 DeT8UBK2gSCqrJ0gyYud rhixbS8rCva+A8X6uGG6 aWVudDwvdGQ+PC90 za96Y3BgWtbeOrv5BXGk YIN0nJW8cG8rCHLkBUdb k7X7jGF1O8SqbbRnoj4z j6fdFHIsDAglP81p sNEyk9Z2GUHryLR5IYKk fZeuUrLddK86Cyd+PGNv pDhmo3SzCmjiy1gib3ow nJm0XbIxCEUwsnLd lGufNLI7v3AqFx92T72y IHdpZHRoPSIzMCUiIHZh gXijyi0aoE7jGu6+PGNv nGA3gWD1vI5gHfVg HfF1ERpzX672IrSlqHHt Vbslk8rjw9dtoAv8NrTs XGNtbbDowLqiQVL4w5Ek La91V0IslXywd5Fw Uvn8io71jCTty1B4kLE9 B6HdLLEpeetnfPIpcCki LS4pYTIrppxnCXVxdT4t FORiH8i7SyRmBgM9 JSakO0NokpF2UGQjhUZz FOZazGOTsO3xhkqmd2ly bkebJyOaONBzNDu3SZu9 LWFsaWduOiBsZWZ0 MsR0TSG0wDWziD1bcQuf lkcmqD3hVna+DAh0b2xx oFTdXT0ltVD5FP94JJ70 xFWzx8E5oJO8V3Yz RRNtgkvvzcqaoGG3YYDz PMPjaF99Zi2fmBkdJz7o XMLgPCR2VHAczBGnC3Oy uS4dYpVzGRZkIQRq Q2AjjZAmGPmlR784UQwb XzW4CGXvhcUbR2TjMYAq sQtqMbC5v7E8Ki5KMF46 LQ47QI16sPTbi1J5 dTG9Q6DqYQIoskybyvvj sGY9WEQzPMCdqE56Wu4c qCtvIi1dMCDsFPK7IPRm dWYcX0SosM3fJoQj YIJdLGXaP3JbzROpFEbp C158WIujXbK3JZOvhvIi J4DaAFIloIdtDrF6c0B9 Yk2DPq37IY24YN39 oSJio8D0pSP5D4YcDOIs wltxhseybUB2SWDtGGHg zT59Xd9csGpiBz2tURLm UIN7VMDmhEKrK3Fm pC0lBzLvDHXyFVNtR2Bg mANpDUjkC390KObdGvI3 VWUbacHeV6HyDMVpaWfe TlG9t8W4Ak1GCMbq wwy9M3IjFhzxbDD+PC90 BQSvYP45lWBqtSRqi5fv wBq5HmVfFVTnNIH8iYkw BXfgs7LtMMTwA24n bGFw (more content not included)... Normal [facility] Consent for Treatmenton Consent for Treatment [id number] #1.00CD:127 Normal [facility] MRI Knee w/o Contrast Righto n 08-21-2022 MRI Knee w/o Contrast Right Exam Date/Time: 08/21/2022 12:41 EST Reason for Exam: [id number] Report IMPRESSION: HORIZONTAL TEAR OF THE POSTERIOR HORN OF THE MEDIAL MENISCUS. Exam: MRI Knee w/o Contrast Right History: Pain and swelling. Technique: Multiplanar multisequence MRI of the knee was performed without contrast. Comparison: Radiographs of the knee 08/04/2022 Findings: Quadriceps and patellar tendons are intact. No joint effusion. Anterior and posterior cruciate ligaments are intact. The medial collateral ligament, lateral collateral ligament, and popliteus are intact. Horizontal tear of the posterior horn of the medial meniscus. The lateral meniscus is intact. No well-defined or measurable cartilage defect identified. Popliteal fossa structures are intact. No Roy cyst. FINAL REPORT Dictated: 08/21/2022 2:10 pm Anant Flores DO Signed (Electronic Signature): 08/21/2022 2:10 pm Signed by: Anant Flores DO Transcribed by: DORCAS Technologist: CARLA Technical Comments None Normal [facility] RAD - MRI Screening Formon 0 08-21-2022 RAD - MRI Screening Form [id number] #1.00CD:127 Normal [facility] Coding Summary.on 08-17-2022 Coding Summary. CD:[id number] Gh0bWw+PGhlYWQ+PE1FV MAdY17paFOxuJ2YF6jFS O3OAIMESJGGXP6YSG9zk VE4LApeE4SmpaKu EliaiLSiPA12FVp0WLR1 hCwfQLhomG8ahYNqN2l4 GhDhMZ86rT71AQrhROHn ZzF0MhSphnmvfPOg H6dxIhNduEMiBvo+PHRh YmxlIHdpZHRoPScxMDAl XlYtxSfhNF1tXr8dMCRs LWNvbGxhcHNlOiBj l4szSQDzEXvjTR9gpRic B3VgiEJ9TJDyo8e2Um50 dHI+YZBhSSP8dVmeQQle g867MeAzr3vrERC4 gNFoLNfyUWK8R28uc6S3 SOPiZCSiYCO9kAH3qA3k oPpvpceyJ4NrbTFlJyD7 QZE3tQLjnE9nvDlm nbccrR6rEaf+Y82DGW4A DIUJKL2NDuf0X4EuXyki dHI+IM80CKIkXE55lZZk jEFqx2pzbNk5VzCn IFAeLCU8sZwiMYpcw2Df VGOcT64khMIvi8T6JEWl sAlqyPVqBiNqcLW4aR7d BWdchvpvr5cdacez Acqyi5ulus63wI12I01h SUoqNQBvGSZ3OZTsIBWq pWkwtk3ooO7hWp2+IDxj r3hjw6kuzMz5VxPt RZWqanXtuWvcMXW0d2Ds En49M5YhiVwxg0MgEyq1 vs96iVVbv5E4mTU5QKyr DHNvvX8qYVxpNoL2 SZNsEaJchC69nEZfCPti Cl1zbNujbHflZJ1eTSNt jhbmGOCmuK0mNHJnjYBo nMwuPS9cZALvarab k909PdXfYXU0CWYlmUUg O3PkbG3cEjEnFPMcCISy N2NbhGPvWIlrX300UJgp TuG1IERbpjQdH2Ih JIHxsCdlLaI6s1V3Td6V i8BhkzueWQG0YVmnTNVf BdRaWjThXfE5D4NbWdv9 YMAhrDyoQK7cN9Ty TNVvoimddebwiEV7MGSs HGEqbS79lBDdELomPe3u u1Y8t729TOTvRMClvP00 Fk6ehChvNNPzgHOA lS0eryvau9qertcfEpDa KFEfCVp7TMt8ZQVunClq BbWwDFQ3ZxG3XYK3hORf eK6lmWhsllqplF7s Oyc+C81rdZ9cNGU2XUS5 yjvoIBBjdsQlWB97WY06 G3GwJzmphYYziNY+PGRp dmDbgRxlAD2fAePt m4qjt8GvWDuwK3XtRUGi HAwjXev2MVFeHPV9kTN6 kI8yHTYgLXxnn8W4mZO0 I1BvqfVvkq1dk2pp VIFrCBnuS22alIHjl4U6 EQJuqPO5ZPTmoUolHrMb iY28Ncx+ZTSziKnjm7Hl Ekzkp7pbw1jkfLp3 IjMwJSIgdmFsaWduPSJ0 d0QwIr44M57cPIizDWQq DQIdLJHrYYNunLlsff2o jH2sTu2+PGNvbCB3 zNJ7rD7zLOVpPaS5KHzl U247BnQzwIUeZicut1nd l6sieGc9PaLdDFKfzlLk zCblJEZ2l8LrXq84 P67eMJhtDPOlVKYnBYOg UGUhhObvps3hqD4jMv6+ CF4kh1xnaf97eH33uAU+ KXQeTYH4lGhlYHwu YJQxmL1vASqsIxD6YLEm UxXnfX19rITvDElhBw3l iNagaOtqWA1nREZmvtjk m743ClPrw1nlZUWq wZOmIGfqNZC9K68fv3L6 PGGjHTOxGEJ9eUU5tN3v bGlnbjogbGVmdDsgdmVy eMdgZFzwEUubJ280 IHRvcDsnPlBhdGllbnQg NiWdJVu7J4LpWhs7RIDn nQfgLB1phDAoLGnhCk1y xWsjfKgkKF8wZWOi ygpto880TwXqw2wuFBLq pNInXFsrCBI2K88bp6W2 LJFePUSnPSM0eOW9wS7g bGlnbjogbGVmdDsg bqFovReyFXwkYNsdM028 IHRvcDsnPkJpcnRoIERh pIZ1VB31XO10jETkv3Z8 iKW6G8RgMTEyfydy sffutAM4HWObPTSvmR95 Aw6etKnqOc6pCXEvOBY3 JSIjhHHxR6YmbM9eNcRq KORvBXQzY6AxzZAa MDmeZ038FDnqXvN4DGIz jkLsF9AsOQPvmNtbMoV4 j8T6Zl1WH5X5SE46DT06 cXQly1W3uRS6L9Mf UXLpirantugtzZC1WVCl ZLDtyD55Xu7vvMobUy0g SUNfXFF0QFWrdJZmO3Gq uW4lXwQdEYTaOSBg Q9TvzRUoNJcbY343JFna ZkB4SVKlktXdD7EyPTJn iJnaYxV7q5I5Yi0SFTl9 QM18ZA40dOOzt4X9 oRP1A9WjQCYsyqlztojh jIQ2IXCzYABysC35Hg9e zEvhMr3sLTYbJTZ9HEOi xYBwK9VtdC7aNwIl PRBqTTApJ3QqiTQzNGrx L730GHovWvZ2WZSsidHl O4JyOLCidUwuFsD8g0W2 Ck4OOHJdMH28EQO5 eSR8AS80ZG15N6NuHveu dGFibGU+PHRhYmxlIHdp ZHRoPScxMDAlJyBzdHls CU4bYl4mZVXwGBEq tBtnrGRvBtIst1nsOBZg IAurQC8biFrtJ2KecIX9 JYJqn7t1Pi89G27uX1Yr dXA+UOZvkQB9mOI8 jP9cDmNsWaO8LVizM489 IfBesNBzOizdo2nof5fy fDg1XmD8WILtqpIxsVho SRC4y8VrQi35U38s IHdpZHRoPSIxNSUiIHZh rEyjxb7bmZ0aQe1+PGNv iLR3mPL2nP8oXkCmFdC9 ONucR116CwBnaAEn Cgazv2eml2gioRt6BjYy EFPsugLofYgrIXT0y3Mp Bd89Y8JgiJodm1LgHtr1 yh05cLXar1T5xET6 W5OtXOWmvrgmhDLmcGlk JJ1qHWWksmedTIZziY0e FZWnD2u5DwMkOuH6PSsi G6RihtG3KJJcxHRt AEneJOY6G18we0Y8GIIp TZUcYCL0qDT7fP7ycVhp bjogbGVmdDsgdmVydGlj MTjcMGggF790CBXv fIojGGDraD6sVFNfdVEx mHhkUK6vRYBkdwquGzLB QVRSSUdIVCwgVEhPTUFT DDS6P6QnKxn0XYJd zQxdHK3svWBxNZnfXz4t kInneGsyFG0zAUHaqpih TQZtwK8vCDZfwTWyrHoq UZ0dHRMmiojwe058 EjAlKKC4AMNsbCClN8Cb tJ0wBhVwQNKiBQVoW2Jo oKBiYIbiE473XQedJtY4 RCSytwYhI9AlHEHu uJqbEdV6v8V2Bv3vNo4l BH4vUDt4SX68PW66zYQb n7N8hIA0J4QvBCCqsurs skecwDG8NFQaPJPk lC70sBNuMPimUk4be7W4 r099CZIhYESrxT22Np7k oCteAEQzdFDQsB7qztey u1esefakUpOoOMSx GMg4WMp4QSHmcVesPwFi ARW7FzX9RWX8gAWfuW6d iEierkcayL8vArs+MjYg LXYrvxL3Y3DmUdj3 SVWtoWsiTV6eqRSwILta Bo1smHhoaLfvHN4iBYJv szlaKRUseQ7jHRWhsNVv hAxwEY4vZYFppaxj c519BpLuJMK5UBBwiHPv Z1UviQ9eGtKkFTDmMCRz Q8IvjHQjUMseY870PGri XnB8HXQqesJcI9Aq NVFbgKtkFwI8w1K1Tw1X XAloUW81XG02wBRga2S9 sLS9Z8WtFNOgchebzilf vIX4CAWqSEVkuQ14 fKDuQTagTl5dl3Q6p606 ZURpYIYddY47Bp0mrAzu CPOthAVZdV4wozezt9nm cjogIzAwMDAwMDt0 MHz1DTJbqNikVcCrQVM8 SfY9KHH2bRCeiT8vdEtj iyufnM2sCcp+S5C6uFO9 aWVudDwvdGQ+PC90 mh68S1VtSzhiJgp0LDUo YCO0oPV9cK4eTYMnYVsk v4B7vUY3F0FiwgWfdf6h m3vkVTRzNBtdG93u rGNeo5V0QVFfsNB9QJGx vRbpNbVxoA41Qzs+PGNv hIuib5YgIfoxk9zyz7qe wUi7PdFsMWIgvoKp nHfmUNF4g3HiPu36P97w IHdpZHRoPSIzMCUiIHZh lSbbez3xrF1fOf7+PGNv wNI6uUS6wW9yKhUl PoT9VHpfF275LySymHTj Rgtiq7res8qiiVz3QjBq GCQkhrLncXayCUO3h0Kq Gj81X5HlmEmsc0Jh Xkv7je50qCUnz6C0mSQ3 U2QxCZSjatshdCDuwNuw GU0zYLHeptsyAQQhlJ6t SXIiV8o0OgEdCwJ0 YMiiD7VnotL6FEFutRRa CHSodZSMvG4obpkkz6yk vaqhXaVkIIWtSCp8YEz0 LWFsaWduOiBsZWZ0 JaI9POT8vYWkzR8cfNpa bfeilS4vHxj+VOo8t2xe mIMiMJ3zeFJ0CL83GW43 qRFsd2R8sPP4I1Rr BKFnrbnwpykmxQK4ZGNk XBWwcG28Ms7daCqiCq0h MZMhUXE0EJZuxPZbK5Ej eG5pYnQpEPNgESJm T3TohCXwUHekL414TKys FcM4SKFaxpKzN2PgCEVf kNhhDxZ6x0R8Wy8ZGJ56 MU85XT43iQKuk9G8 wCE7V8DfHTDiprmhkqmt lHM8RRJqVWNbxL10Bl7j xQrwNl3mIXRoIAF3OBBg hNNxT6GrfV0qZiOu CAVyZLCtI5RadLExOFaw A211SEeiXgJ9LCPebcLo J9ZqTEXesMktDqY0w3Z7 Ts4CQg89LL34IJ23 pJDiy4Q9cEZ2C2XmKARl mgrekqqiuPO7ORNwPIYc jO18Tm6rqYmfUw3vISUc MJH7DHPhqXTjO9Vv xS9cMrFgFRYuNLAwO4Sn bCApLPkyA547UDtwVvU5 PWZogzEwX7OeVSJtpAyh RfR2e2X1Bo3ZETmr dhu6K8TgZgahdTS+PC90 WNLdYB94nFJdrHRdo6qy iQw4GkOwNDClVSS9rVpv TGjfa1SeSHTzX38v bGFw (more content not included)... Normal [facility] Consent for Treatmenton 07-18 Consent for Treatment [id number] #1.00CD:127 Normal [facility] US Abdomen Completeon 2022 US Abdomen Complete Exam Date/Time: 08/15/2022 09:31 EST Reason for Exam: R10.9;Abdominal pain Report IMPRESSION: SUSPECTED FATTY INFILTRATION OF THE LIVER. OTHERWISE NEGATIVE ULTRASOUND OF THE UPPER ABDOMINAL ORGANS, WITHIN THE LIMITATIONS OF THIS ULTRASOUND EXAM. CLINICAL HISTORY: Abdominal pain, R10.9. COMPARISON: CT abdomen pelvis on 08/09/2022. COMMENT: The head and proximal body of the pancreas are visualized on this study. The distal body and tail of the pancreas are obscured. The portion of the pancreas that is visualized on this study is unremarkable in appearance. The liver is normal in size and configuration. The echogenicity of the liver suggests diffuse fatty infiltration. No focal liver lesion is evident. The gallbladder is normal in size and ultrasound appearance. No gallstones are noted. There is no biliary ductal dilatation. The common bile duct measures approximately 0.5 cm in diameter at the jose hepatis. The common bile duct is obscured beyond the jose hepatis. The right kidney measures approximately 11 cm in length, with renal cortical thickness of approximately 1.4 cm. The left kidney measures approximately 1.5 cm in length, with renal cortical thickness of approximately 2 cm. Both kidneys have an unremarkable sonographic appearance. No renal mass nor cyst is noted. There is no hydronephrosis. The proximal aorta is visualized and is not dilated. The spleen is normal in size and ultrasound appearance. No free fluid is noted collecting peripheral to the liver or spleen. Please refer to the CT abdomen and pelvis report, as most upper abdominal structures are better evaluated on the CT scan. FINAL REPORT Dictated: 08/15/2022 10:30 am Rex Arreguin M.D. Signed (Electronic Signature): 08/15/2022 10:30 am Signed by: Rex Arreguin M.D. Transcribed by: DORCAS Technologist: ZACHARY [facility] Physician Orderon 08-14-2022 Physician Order [id number] 9#1.00CD:127 [facility] Pre-Certification Formon Pre-Certification Form [id number] 1#1.00CD:127 [facility] Coding Summary.on 08-11-2022 Coding Summary. CD:[id number]:[id number] Gh0bWw+PGhlYWQ+PE1FV SMvZ41hqDBrdM3UC6zUY Q8JYQDHBKYDUG1HAE9pz AL5NGfzE8WahmLj FoqqjWOlKS20ATk7VLO8 yVfgELfvsG9kaYMwJ1e1 DnBoMM79rQ22IXfvYIIs PhL9OiQfongkhLJm O4nqKzXcsQOpWmm+PHRh YmxlIHdpZHRoPScxMDAl XkAqoDxaJR1eLy6iASYk LWNvbGxhcHNlOiBj z5kaFNQbHNakUL1dhUrl A4HkmUW9JJEes2b5El43 dHI+CWMcFYB9hTikMQsy t815EyKor9kiQIC2 xBPgPXlfTYI2O77hv3I5 XQFiQMOyTXS4dLS2iB2n hYghzzgfK3GugTYnWhZ2 LDR7nFTshJ3ovXoy yvdmqV6qTug+T85GXM1P GSYNIU7DIwi7P9NuSnug dHI+ZI06SRKcQP77zYLe bGZum2syuHq4ErPv DYDxJTZ8cCtyMQcpv5Sf IIVyE00ozYQao6E3OWHj wWrdlNSpFxKxxFL9iG2l RBikzgegx1sxyijo Zewit2gaxb74rB88T05z MHpoCNXxAMX3NKBlOQWq lOezad4awF1oLm5+IDxj r8sub4dmlIa0UbVo IYTbpbRxyRzyIYZ4u3Qy Cz17L0GheYqdq0CgZgr5 zk34eXLkj7V1qRN9YLsd TMXfkF4aQDbkKcT6 YNDeQcXaiC10tEVnLSpi Vf0epGgnbBenBM5pXTIo ukbrIWDobF5dUOPrcJAs wDqrMN4wQJIbvzhd f223NhCwNYY7WUZfwGJf H3IjoZ2gHkCdYOVvZVMe R7HhrVPfZByuG907NKim JsJ0MYBnetPqO6Dc RJSadJtrJeG5m3S6Ev4J h4PbenkvLWM9QBibYXBj RtR6VwJqAaR4G8NhXaj7 WZBgfGhcOS4oX0Lc WEJxeumbyxumhDZ9GZLz KMNnjT69zODxBGdzKg0b u8C1j194CEDsTEPjoE21 Zt0ixVnmWEBkiKOR vN2cahwxh0wuydxnTbLv IBEdANb9FOa0YZPcfOnb FiWoPSN7RxO9MLM8pORh eJ5iaLhezkdqeC4w Oyc+C59tcK8nVQD0SHO7 nrghWVFphtRhVA20XO46 Z0WpTrlviNHfhPN+PGRp coSlsZwvBS4jAyDf s9rbp4MrPJrmE1PkJWVf GKirRgt8VNNlZHI2eTK2 cK8yKAHwXEjiu2N2eYL2 J4OhuvVjch5lk4al DEDdNGppB32wcVBgc7S3 BUTfpPU6ZFSozAebUzKs sS90Geu+LBOkjEeqj2Nj Ngtwv5iuw2fexAp5 IjMwJSIgdmFsaWduPSJ0 e1MxGv29A16pLTqyNFOw AJMfKLZeEQEujNgyuy9b pS7fRs0+PGNvbCB3 cQP9fI8jDCPbUlN0YGjc B688ZxSkbNFaNnupd8gd h6objBg9IwAlNSPfruZq zWrhAXY5g4FoCg88 Q75qXMeqGVOhKEHaLVGp BVSdvBvskz4zcK6fOk6+ EM3jc7htol56tX75zED+ RGQnKYC9cBvrTQod GPGzuZ2bVYrvDbX8HJEa DfLopL97gUVrUOufGz1p wOyccZeaEN3oGLTqryoi r379MkTjn1usEZLu sBDxHWgiDPJ5T39ir5A5 FWNzIXFiYTR0wYZ9zU0e bGlnbjogbGVmdDsgdmVy dYzvQVsvMPngL606 IHRvcDsnPlBhdGllbnQg EsWyQCs9F0KgMzn5KIBe iJruPR0qgKYnAXgzFb7a cNndtInsIK7dNETr zecbd931ZaFnd7tvXSQn lWBfYCmfSHA4F08zh8T6 YYOqXEDtTCZ7kPE2hU0o bGlnbjogbGVmdDsg esQtpKllNTewVHxlH377 IHRvcDsnPkJpcnRoIERh wUX2SM07OA71tJPuk8A7 dEH1K9YgMJPotvqf hqpchHJ3FXDqBZYymW78 Ne1qtUleVn5lAEEtPLS4 CTUgdMApX3IekA0sKdAk ANPlKXXaW1UnpLXz LHlaL807SUyxMaA7NIHv moJlA6ExRZCtnSdaDtX5 d4Y0Zq0AT4K0UW76XL02 zGNxx8W1qGI3Z2Ew PNIexdxdiyywfGG3ZZDb DGSnuB51Km8pdGquPn6z RJQmQKN4DJYqnOOjB0Pn uI5pNbPsEKOjURKm T4QaqFFoMJvuB815KEne RdR8TISznxQjQ2LqGFZa vBxaFiL1o6T7Zs2QWKe0 BK09BM56iVBmy1F7 oBX7K0XjXAMzjpvehbea fOV7HQXwWAYwiC32Wp1g lIubXk4kKHXyKGZ3WUVj sTGmZ9PfmL9aZqOy KZZtMELmO7DwlNSeZHsw Y032QSsoZzT5JDIeicEq G4ZxKCIrwJqmPfL7k1V0 Pk9KCWGmOF43TKE4 lHY2OZ84NC03S0MqXofx dGFibGU+PHRhYmxlIHdp ZHRoPScxMDAlJyBzdHls TJ8fCo1zXRTwFVHu fOntaOVhVkMzq7xpMDKm LOhiQA9dnNeoS5LhqAA0 WWGib1d5Io96N61qE4Mv dXA+IIIohOG1iIY3 uL1nAaWvNbJ2OXdwR773 AaKyuUUyAjdvw5gqc7jp rVc0KxB4MPZseqLcqNtf EZC8x9VeTl87P46x IHdpZHRoPSIxNSUiIHZh aHyvrs4mkP6iEz6+PGNv bEI9gJV9vB8gAbDfMoU1 ZYhdE403BmZorAFw Rwuew2wxb7owtSu7CiQe IEMswxQcnUkmKTC0c2Xy Pu57W0DlfNdir6MvHmu0 jz53aBIcf4S4kKB6 F0VwNDCeogazlHVlkSpk XR0lBSLgggthMFEomA9p QCIhA5s5NqNpOuM5KGvg S8DkqaG3PUGwnNTg ZXjpJEW2W99ci2A1OASb AEPhGYU6lRL1cL3rlOfc bjogbGVmdDsgdmVydGlj QIekIZqiP938KKBd dCnuQFJgpJ4dHKAskCRy mYoiMY1sGCBjhkdnYnUP QVRSSUdIVCwgVEhPTUFT LHD2G5LjAbb0ISNy bPkrFA3gdCGfSIpeMq0z zXbplLmrZZ9nARBdpsyb VRGjuJ6aRMWwaMNuxXlv TC4pZMCkxqaxd126 XoFaCKZ4KRYoyZGjC3Ge aF4oDoSfLAFsNSIiJ7Zm yHJlNUvbK954IHsjMcI0 UFTpxcItT6ZiGMSa aApxWcS6t0J0Eh2sBj4u DE7xKOu6RY53WX15gXXl t6S3fWX3L6SiHXKlhjwu aulkpNB8URUpDSEk vU51zTIuERumUs6zq3X7 k296SYMzLYTmeK96Gg9j xKshCUFqwEEGvC5ulzyv g4qazjngVsBuMEPx WTb5IOw7FKMbwUctZnKh WXT4CfN7COD8bTYonZ6r xDzmnobifB0oMrg+MjYg PCOxptN9M4FiReq1 EMYbaLicWU7zaGNcXZjb Bl6spAnmnJhqCL3aWLXw hejtNNTneK4kBGNzhJEy mWjxRP5nVNQocejv f271JvBtMYR8HFXduAYr H4NddO6xLqEoHPXgCYZx T7WamNVqFOtkG070BGwf NfJ4ZAPmdqQzO7Lw XLBfxSanRhY8w4M2Rp5M CAqiFI53MF99qMJdq5F5 vUX9H2BaQTCrsfkesxfq rHH8ZYXyZGRzbH09 qVPcXKroIv4dc8S9s600 JBScYEEmpA61Ln0mmHfe SDUvnKWGvT4vxmihu9ws cjogIzAwMDAwMDt0 HAq5RTUdxCbrJjYvXKC0 EtL1APJ2cGZqbO2yaCnz pcveuY6sQog+RT8kcciv rwN8WM79UA18L3Az PjwvdGFibGU+PHRhYmxl IHdpZHRoPScxMDAlJyBz hPpnRO0hSt1yYVPgKKAe qZfvxCStGdSfc2cc XHUkEXwjTN5krCmeD3Qy fGH6MUHkj6t4Og13M99b L7CeyAW+VEXlkCY6vHV0 dK7tHaHyHaR3ALsg U816ZyVqcRTuLzmna3on s7eogWl2AoXnVMBveqWq iYldNJK5s5BmIl02O50m IHdpZHRoPSIyMCUi LXUunTixcm8yfV4tGd5+ WXYgmPU1uWL0iR8fWyDv PoW9HQblY698NmRfaVSs TlpjT53yB1KtsNZ+ WQIgNig7PXRpmCufZD2x rAJgQCllDd5zYNB3CuGb PtEgERxrD6FbDMCpqtxc htnftMD3ABRhUTFy vQ30Nq3kxLmiBe0tJDWg NKQ4AZDzrIKvC6DatE8c RoBsKSZrBEWzU1JlvWAe JIstM480DGbmWiZ6 OLFuvuDtO3JpIQYhlLem AyC1r0Y2Oa5RbXsluZQh CT5bXuAxEOx0P1EaSco1 LEGekEbzJB3wwQSx HKegPt7ceIalzYkuFW9i WBLwyfhhm966CmVyr1ya SUKwcQGtAQefQUS3C15i e3E3NGUtEAGkAXL7 hRU3wN5wvMgcyumzoHKf dDsgdmVydGljYWwtYWxp O807CJTdzRbwPsUGQgj3 R9LrCfo0CJAdyBmh MA4acWIgSCqpLd8zxBbq eRztIG4kAVUvogbex613 XxDkp7tyNDQfaDCpVDlk FYN1A83gx6Z8OGXw DHQvYGW8zRF8rA1rdJel bjogbGVmdDsgdmVydGlj AXpvDFhsE259BOSpdWov Gb9XPpv7A5ZaCvg4 IENvdWcrCC1vfRJzAVbh Bg9rjKbodBwlOF3uWBDh dnbyi200FzNpw6fuUAKx cQQdHJerKFU6Z47s a6L7KIIlFAKlQWN1mNP1 uB2ftCzlnmusrDQeaSwm aoYykIlsVDavVRvrM341 IHRvcDsnPlBheWVy OjwvdGQ+OO61tt37B5Vj VxsxZpd7RDZkHAH6rGG1 rA4uPSRnVVpcz1Y2xGJ6 W0XbbsWicr0nm7la YXBz (more content not included)... Normal [facility] ED Note-Physicianon 08-11-19 ED Note-Physician Basic Information Time Seen: Deyanira GALLARDO Domingo Elissa 08/09/2022 16:58 Chief Complaint Pt presents to ED with complaints of nausea, diarrhea and ABD pain onset yesterday. History of Present Illness Patient is a 26-year-old male presents ED with complaints of nausea, diarrhea, and diffuse crampy abdominal pain since yesterday. Patient reports that he began to have diffuse crampy abdominal pain about a week ago. Patient was also having intermittent nausea. Patient states his abdominal pain and nausea have become worse since yesterday, and he began to have diarrhea. Patient endorses perhaps 20 bouts of watery diarrhea since yesterday. Patient denies any blood in his stool. Patient denies any vomiting. Patient has any fevers or chills. Patient reports that he is not any eat today, but he has been tolerating p.o. fluids. Patient reports he was eating normally yesterday. Patient has any known ill contacts. Patient denies any chest pain or shortness of breath. Patient has any respiratory symptoms. Patient denies any past history of similar episodes, does endorse history of chronic diarrhea and chronic abdominal pain. Family history: Reviewed and noncontributory Social history: Reviewed and noncontributory Review of Systems Full 10 system ROS performed. Pt denies symptoms except as noted above in the HPI. Physical Exam Vitals & Measurements T: 36.4 ?C(Oral) HR: 92(Monitored) RR: 18 BP: 149/73 SpO2: 98% HT: 193 cm WT: 115.2 kg BMI: 30.93 General: Pt is in NAD, nontoxic appearing Skin: Pt skin is warm and dry, no rashes or lesions appreciated HEENT: Atraumatic, normocephalic. Clear sclera. PERRLA. Extraocular movements grossly intact. Pulmonary: Breathing normally, no respiratory distress, no accessory muscle usage, lungs CTAB Cardiovascular: Regular rate and rhythm, no murmurs/gallops/rubs . Distal pulses palpable in upper and lower extremities bilaterally Gastrointestinal: +BSX4. Abdomen soft, nondistended, diffusely tender to palpation. No peritoneal signs present. Musculoskeletal: Pt has full ROM Neurological: Pt is alert and oriented. Sensation grossly intact in upper and lower extremities bilaterally. Lymphatic: No lymphadenopathy appreciated. No peripheral edema appreciated Psychiatric: Pt is cooperative, communicative, appropriately reactive Medical Decision Making MEDICAL DECISION MAKING Number and Complexity of Problems Differential Diagnosis: Gastroenteritis, colitis, diverticulitis, appendicitis MDM Data External documents reviewed: [] My EKG interpretation: [] My CT interpretation: No acute abdominal processes My X-ray interpretation: [] My Ultrasound interpretation: [] Decision rules/scores evaluated: [] Discussed with: [] Treatment and Disposition ED Course: Patient without any acute laboratory abnormalities on ED. Patient given fluids and antiemetic in ED with great resolution of symptoms. Patient tolerating p.o. intake in the ED in the form of water. Patient states he feels well. Patient nontoxic-appearing, stable vital signs throughout stay in ED. Patient physical exam minimally concerning. Patient most likely with a gastroenteritis. Return precautions shonda with patient, patient questions answered. Patient discharged home for outpatient follow-up with primary care. Shared decision making: [] Code status: [] Assessment/Plan Abdominal pain (R10.9: Unspecified abdominal pain) Diarrhea (R19.7: Diarrhea, unspecified) Nausea (R11.0: Nausea) Orders: dicyclomine, 20 mg = 1 tab(s), Oral, QID, X 7 day(s), # 28 tab(s), Refills(s) 0, Pharmacy: [id number], 193, cm, 08/09/22 16:56:00 EST, Height/Length Dosing, 115.2, kg, 08/09/22 16:56:00 EST, Weight Dosing ondansetron, 4 mg = 2 mL, Injection, IV Push, Once, Stop date 08/09/22 17:30:00 EST, STAT, Start date 08/09/22 17:30:00 EST, 08/09/22 17:30:00 EST ondansetron, 4 mg = 1 tab(s), Oral, q6hr, # 12 tab(s), Refills(s) 0, Pharmacy: [facility], 193, cm, 08/09/22 16:56:00 EST, Height/Length Dosing, 115.2, kg, 08/09/22 16:56:00 EST, Weight Dosing Sodium Chloride 0.9% intravenous solution, 1,000 mL, Soln-IV, IV, Once, Stop date 08/09/22 17:30:00 EST, STAT, Start date 08/09/22 17:30:00 EST, mL/hr, Infuse over 61, minute(s) Automated Diff Basic Metabolic Panel CBC w/ Auto Diff CT Abdomen/Pelvis w/ Contrast eGFR Extra Blue Tube Extra SST Tube Hepatic Function Panel Lipase Level UA With Cult Reflex Medications Administered Given OD1392 [F], 1000 mL, IV ondansetron 4 mg/2 mL Inj, 4 mg, IV Push Disposition Plan Patient Discharge Condition Stable Discharge Disposition To home Discharge Prescription List Prescriptions dicyclomine 20 mg Tab, 20 mg= 1 tab(s), Oral, QID ondansetron 4 mg Dis Tab, 4 mg= 1 tab(s), Oral, q6hr Follow-up With When Contact Information Bi BELL In 3 days 08/12/2022 EST [address] [place] [address]- Business (1) Add (more content not included)... Normal [facility] Comment on above: Result Comment: Elec tronically Signed By: Domingo Mcmillan PA-C\.br\Date and Time Signed: 08/09/22 20:16 EST\.br\Electronically Co-Signed By: Jv Dacosta DO\.br\Date and Time Co-Signed: 08/11/22 07:00 EST Discharge Instructionson Discharge Instructions [id number]#1.00CD:127 Normal [facility] Auto Diffon 08-09-2022 Basophils/100 WBC (Bld) 0.6 % Normal 0.0-2.0 [facility] Comment on above: Order Comment: Order Added by Discern Expert. Performed By: #### 2 159707, [id number], 1771022, 4899047, 5559190, 0266640 ####[facility] [address] [place] [address] Basophils/Leukocytes Auto (Bld) [Pure # fraction] 0.1 E9/L Normal 0.0-0.2 [facility] Comment on above: Order Comment: Order Added by Discern Expert. Performed By: #### 2 007418, 71378215, 8219145, 9131522, 8507073, 8978875 ####[address] [place] [address] Eosinophils/100 WBC (Bld) 1.2 % Normal 0.0-8.0 [facility] Comment on above: Order Comment: Order Added by Discern Expert. Performed By: #### 2 951889, 73019265, 5167590, 2364320, 5749394, 2863093 ####[address] [place] [address] Eosinophils/Leukocyt es Auto (Bld) [Pure # fraction] 0.1 E9/L Normal 0.0-0.5 [facility] Comment on above: Order Comment: Order Added by Discern Expert. Performed By: #### 2 382665, 61032131, 9654874, 3665420, 5787769, 9041015 ####[address] [address] Lymphocytes/100 WBC (Bld) 17.1 % Normal 14.0-50.0 [facility] Comment on above: Order Comment: Order Added by Discern Expert. Performed By: #### 2 295807, 58942167, 5661075, 6534843, 5161642, 2193559 ####[address] [place] [address] Lymphocytes/Leukocyt es Auto (Bld) [Pure # fraction] 1.9 E9/L Normal 1.0-4.0 [facility] Comment on above: Order Comment: Order Added by Discern Expert. Performed By: #### 2 164277, 29297010, 5039755, 3714572, 6101222, 4545618 ####[address] [place] [address] Monocytes/100 WBC (Bld) 9.2 % Normal 4.0-14.0 [facility] Comment on above: Order Comment: Order Added by Discern Expert. Performed By: #### 2 285116, 07093239, 3436127, 6909788, 2897236, 7786299 ####[facility] [address] [place] [address] Monocytes/Leukocytes Auto (Bld) [Pure # fraction] 1.0 E9/L Normal 0.2-1.0 [facility] Comment on above: Order Comment: Order Added by Discern Expert. Performed By: #### 2 464949, 61819834, 7360446, 5890172, 5487893, 3469165 ####[address] [place] [address] Neutrophils/100 WBC (Bld) 71.9 % Normal 36.0-75.0 [facility] Comment on above: Order Comment: Order Added by Discern Expert. Performed By: #### 2 483958, 80873842, 6615316, 2288992, 1277740, 0407807 ####[facility] [address] [place] [address] Neutrophils/Leukocyt es Auto (Bld) [Pure # fraction] 7.8 E9/L High 2.0-7.5 [facility] Comment on above: Order Comment: Order Added by Discern Expert. Performed By: #### 2 486483, 26145154, 6391616, 9838525, 6915311, 6090714 ####[facility] [address] [place] [address] BMPon 08-09-2022 Creatinine [Mass/Vol] 1.1 mg/dL Normal 0.5-1.3 [facility] Comment on above: Performed By: #### 2 147107, 15519133, 6818366, 1835449, 0645302, 4782652 ####[facility] [address] [place] [address] Urea nitrogen [Mass/Vol] 17 mg/dL Normal 5-21 [facility] Comment on above: Performed By: #### 2 440327, 29112293, 8717161, 6662272, 6779454, 1409214 ####[facility] [address] [place] [address] Urea nitrogen/Creatinine [Mass ratio] 16 No Units Normal 10-20 [facility] Comment on above: Performed By: #### 2 835320, 07072453, 7717201, 9397819, 8204301, 5797597 ####[facility] [address] [place] [address] Anion gap [Moles/Vol] 14 mmol/L Normal 6-16 [facility] Comment on above: Performed By: #### 2 563625, 21189790, 5866942, 7211203, 5447023, 8659684 ####[facility] [address] [place] [address] Calcium [Mass/Vol] 9.6 mg/dL Normal 8.9-11.1 [facility] Comment on above: Performed By: #### 2 096696, 87088807, 5822276, 1880134, 4794762, 0802788 ####[facility] [address] [place] [address] Chloride [Moles/Vol] 100 mmol/L Low 101-111 [facility] Comment on above: Performed By: #### 2 490599, 54874865, 2513181, 9071236, 7602555, 9595099 ####[facility] [address] [place] [address] CO2 [Moles/Vol] 23 mmol/L Normal 21-31 [facility] Comment on above: Performed By: #### 2 206893, 07338340, 7455799, 8798512, 7021665, 2327709 ####[facility] [address] [place] [address] Glucose [Mass/Vol] 98 mg/dL Normal 55-199 [facility] Comment on above: Result Comment: If t his glucose result represents a fasting glucose, interpretation should refer to the following reference range: 55-99 mg/dL Performed By: #### 2 587367, 47938695, 3384834, 6231868, 0175320, 8256065 ####[facility] [address] [place] [address] Potassium [Moles/Vol] 4.7 mmol/L Normal 3.5-5.3 [facility] Comment on above: Performed By: #### 2 974728, 78328293, 1440785, 4894455, 0004249, 3860539 ####[facility] [address] [place] [address] Sodium [Moles/Vol] 132 mmol/L Low 135-145 [facility] Comment on above: Performed By: #### 2 813223, 35169945, 9595555, 7405395, 3243154, 4813616 ####[facility] [address] [place] [address] CBC w/ Auto Diffon Erythrocyte distribution width (RBC) [Ratio] 13.2 % Normal 10.9-14.2 [facility] Comment on above: Performed By: #### 2 237387, 08295997, 0100842, 5415620, 7738302, 5245641 ####[facility] [address] [place] [address] Hematocrit (Bld) [Volume fraction] 53.9 % High 37.7-49.0 [facility] Comment on above: Performed By: #### 2 435301, 44932293, 4009455, 0068815, 4517071, 0362706 ####[facility] [address] [place] [address] Hemoglobin (Bld) [Mass/Vol] 18.0 g/dL High 13.5-17.5 [facility] Comment on above: Performed By: #### 2 740121, 31535388, 2055794, 1139587, 7350784, 4625864 ####[facility] [address] [place] [address] MCH (RBC) [Entitic mass] 29.1 pg Normal 27.0-34.0 [facility] Comment on above: Performed By: #### 2 918318, 53522702, 1319188, 5891511, 5010027, 2725170 ####[address] [address] MCHC (RBC) [Mass/Vol] 33.3 g/dL Normal 31.4-36.0 [facility] Comment on above: Performed By: #### 2 728987, 80974533, 9489718, 6226249, 7073860, 1127904 ####[address] [address] MCV (RBC) [Entitic vol] 87.4 fL Normal 80.0-100.0 [facility] Comment on above: Performed By: #### 2 618063, 00521617, 2823994, 8809576, 9836208, 4440060 ####[place] [address] Platelet mean volume (Bld) [Entitic vol] 7.2 fL Normal 6.4-10.8 [facility] Comment on above: Performed By: #### 2 074227, 40390598, 4605226, 4319210, 2555216, 0395077 ####[address] [address] Platelets (Bld) [#/Vol] 328.0 E9/L Normal 150.0-500.0 [facility] Comment on above: Performed By: #### 2 548461, 67110209, 6722424, 1116127, 7751131, 3583421 ####[address] [address] RBC (Bld) [#/Vol] 6.2 E12/L High 4.3-5.9 [facility] Comment on above: Performed By: #### 2 024685, 87318456, 8261632, 2912661, 9167946, 0723768 ####[address] [place] [address] WBC corrected for nucl RBC Auto (Bld) [#/Vol] 10.9 E9/L Normal 4.0-11.0 [facility] Comment on above: Performed By: #### 2 025163, 08843817, 2959871, 3883348, 4161357, 5912165 ####[facility] [address] [place] [address] CHEMISTRYOrdered By: SYSTEM SYSTEM on 08-09-2022 Albumin [Mass/Vol] 5.3 g/dL High 3.3 - 5.0 gm/dL [facility] Albumin/Globulin [Mass ratio] 1.6 {ratio} Normal 1.1 - 2.2 [facility] ALP [Catalytic activity/Vol] 108 [iU]/d High 21 - 98 Int._Unit/L [facility] ALT No additional P-5'-P [Catalytic activity/Vol] 46 [iU]/d Normal 6 - 46 Int._Unit/L [facility] Anion gap [Moles/Vol] 14 mmol/L Normal 6 - 16 mEq/L [facility] AST [Catalytic activity/Vol] 26 [iU]/d Normal 5 - 43 Int._Unit/L [facility] Bilirubin [Mass/Vol] 1.3 mg/dL High 0.0 - 1.1 mg/dL [facility] Bilirubin.direct [Mass/Vol] 0.2 mg/dL Normal 0.1 - 0.4 mg/dL [facility] Bilirubin.indirect [Mass or moles/Vol] 1.0 mg/dL High 0.1 - 0.9 mg/dL [facility] Calcium [Mass/Vol] 9.6 mg/dL Normal 8.9 - 11.1 mg/dL [facility] Chloride [Moles/Vol] 100 mmol/L Low 101 - 111 mmol/ L [facility] CO2 [Moles/Vol] 23 mmol/L Normal 21 - 31 mmol/L [facility] Creatinine [Mass/Vol] 1.1 mg/dL Normal 0.5 - 1.3 mg/dL [facility] GFR/1.73 sq M.predicted among blacks MDRD (S/P/Bld) [Vol rate/Area] mL/min/1.73 m2 Normal >=59mL/min/1.73 m2 [facility] Chem S GFR/1.73 sq M.predicted among non-blacks MDRD (S/P/Bld) [Vol rate/Area] mL/min/1.73 m2 Normal >=59mL/min/1.73 m2 [facility] Chem S Globulin (S) [Mass/Vol] 3.4 g/dL Normal 1.4 - 4.0 gm/dL [facility] Glucose [Mass/Vol] 98 mg/dL Normal 55 - 199 mg/dL [facility] Lipase [Catalytic activity/Vol] 24 U/L Normal 13 - 58 unit/L [facility] Remisol Potassium [Moles/Vol] 4.7 mmol/L Normal 3.5 - 5.3 mmol/L [facility] Protein [Mass/Vol] 8.7 g/dL High 6.0 - 7.8 gm/dL [facility] Remisol Sodium [Moles/Vol] 132 mmol/L Low 135 - 145 mmol/L [facility] Urea nitrogen [Mass/Vol] 17 mg/dL Normal 5 - 21 mg/dL [facility] Remisol Urea nitrogen/Creatinine [Mass ratio] 16 mg/mg Normal 10 - [address] Abdomen/Pelvis w/ Contras ton 08-09-2022 CT Abdomen/Pelvis w/ Contrast Exam Date/Time: 08/09/2022 18:31 EST Reason for Exam: Abdominal pain, acute, nonlocalized;Other (please specify) Report IMPRESSION: There are no acute intra-abdominal changes. EXAMINATION: CT Abdomen/Pelvis w/ Contrast HISTORY: Abdominal pain, acute, nonlocalized COMPARISON: None TECHNIQUE: Contiguous axial CT sections of the abdomen and pelvis were obtained after IV contrast administration of 100 mL of Iopamidol, Isovue-300. Sagittal and coronal reformats have been obtained. All CT scans at this facility use dose modulation, iterative reconstruction, and/or weight based dosing when appropriate to reduce radiation dose to as low as reasonably achievable. FINDINGS Lung bases:Visualized lung bases show no significant pathology Liver: There is diffuse decreased attenuation of the liver consistent with fatty infiltration, steatosis. There are no focal solid or cystic lesions. There is no intra or extrahepatic bile duct dilatation. Gallbladder: No calcified gallstones. Normal gallbladder wall. No pericholecystic fluid. Spleen: There are no focal lesions or calcifications in the spleen. There is no splenomegaly Pancreas: The pancreas is normal in size and attenuation without focal lesions or dilatation of the pancreatic duct. Adrenal glands are negative. Kidneys: There are no solid renal lesions. There are prompt bilateral nephrograms after IV contrast administration with prompt excretion into nondilated collecting systems. There is no hydroureter. Bowel: There is no evidence of bowel obstruction. There are diverticula of the descending and sigmoid colon without evidence of diverticulitis. Appendix: The appendix is unremarkable. Nodes: No lymphadenopathy. Aorta: There is no abdominal aortic aneurysm. Report Peritoneum: No free fluid or free air. Pelvis: There are no solid or cystic lesions. The urinary bladder is within normal limits. Abdominal wall: The abdominal wall is intact. Bones :There are no acute osseous changes. Soft tissues: The soft tissues are unremarkable. FINAL REPORT Dictated: 08/09/2022 6:47 pm Garret Peck MD, V. Signed (Electronic Signature): 08/09/2022 6:47 pm Signed by: Garret Peck MD, V. Transcribed by: DORCAS Technologist: TAYLOR Technical Comments GFR (mL/min/1/73m2) >60 Contrast: Isovue 300 Contrast amount in ml's: 100 Normal [facility] Consent for Treatmenton 07-17 Consent for Treatment [id number] #1.00CD:127 Normal [facility] ED Clinical Summaryon 2022 ED Clinical Summary [place] [id number] ED Clinical Summary Person Information Name: TIGRECINDY ESCOBAR Mario Winslow/[facility] Age: 26 Years : 1995 Sex: Male Language: Spanish PCP: Bi BELL DO Marital Status: Single Visit Id: Visit Reason: Diarrhea; Nausea; Abdominal pain; LOW ABD PAIN, NAUSEA, DIARRHEA Speciality: Acuity: 3 Enc Type: Emergency Med Service: Emergency Arrival: 08/09/2022 16:50:34 Discharge: 08/09/2022 20:07:59 LOS: 000 03:17 Checkin: 08/09/2022 16:50:34 Checkout: 08/09/2022 20:07:59 Dispo Type: Home (Routine DC) EVENTS: Event Name Event Status Request Date/Time Start Date/Time Complete Date/Time Arrive Complete 08/09/2022 16:50:34 08/09/2022 16:50:34 08/09/2022 16:50:34 Document Home Meds Request 08/09/2022 16:50:34 Triage Complete 08/09/2022 16:50:34 08/09/2022 16:56:12 08/09/2022 16:56:12 Isolation Screening Request 08/09/2022 16:56:13 Bed Assign Complete 08/09/2022 16:56:27 08/09/2022 16:56:27 08/09/2022 16:56:27 Dr Exam Complete 08/09/2022 16:56:27 08/09/2022 16:58:28 08/09/2022 16:58:28 RN Exam Complete 08/09/2022 16:56:27 08/09/2022 17:03:48 08/09/2022 17:03:48 Registration Complete 08/09/2022 16:58:28 08/09/2022 17:00:35 08/09/2022 17:00:35 Dr Exam Complete 08/09/2022 16:59:06 08/09/2022 16:59:06 08/09/2022 16:59:06 Reg Complete Request 08/09/2022 17:00:35 Dr Exam Complete 08/09/2022 17:03:17 08/09/2022 17:03:17 08/09/2022 17:03:17 Registration Request 08/09/2022 17:03:17 Meds Admin Complete 08/09/2022 17:30:34 08/09/2022 18:06:05 Pending Labs Complete 08/09/2022 17:30:34 08/09/2022 19:30:16 Lab Complete 08/09/2022 17:30:34 08/09/2022 19:30:16 Urine Collect Complete 08/09/2022 17:30:34 08/09/2022 19:30:16 CT Complete 08/09/2022 17:30:34 08/09/2022 18:23:16 08/09/2022 18:31:49 Pending Labs Complete 08/09/2022 17:51:58 08/09/2022 17:51:58 08/09/2022 18:14:35 Lab Complete 08/09/2022 17:51:58 08/09/2022 17:51:58 08/09/2022 18:14:35 Pending Labs Complete 08/09/2022 18:02:02 08/09/2022 18:02:02 08/09/2022 18:02:02 Pending Labs Complete 08/09/2022 18:03:19 08/09/2022 18:03:19 08/09/2022 18:03:27 Lab Complete 08/09/2022 18:03:19 08/09/2022 18:03:19 08/09/2022 18:03:27 Discharge Complete 08/09/2022 19:44:57 08/09/2022 20:08:07 08/09/2022 20:08:07 Transfer Complete 08/09/2022 20:08:07 08/09/2022 20:08:07 08/09/2022 20:08:07 ADDRESS: [address] [place] [id number] PHYS DOC NOTES: MEDICAL INFORMATION: Prescriptions Given: New Medications [facility], [address] [place], [place] [id number], [phone] dicyclomine (dicyclomine 20 mg Tab) 1 Tablets By Mouth 4 times a day for 7 Days. Refills: 0. ondansetron (ondansetron 4 mg Dis Tab) 1 Tablets By Mouth every 6 hours. Refills: 0. Medications to Continue with No Changes Other Medications clobetasol topical (Olux 0.05% topical foam) 1 Application Topical 2 times a day. Refills: 1. cyanocobalamin (Vitamin B12) duloxetine ergocalciferol (Vitamin D) famotidine (famotidine 40 mg Tab) 1 Tablets By Mouth once a day (at bedtime). Refills: 1. losartan (losartan 25 mg Tab) 1 Tablets By Mouth every day. Refills: 3. metoprolol (metoprolol 50 mg ER Tab) 1 Tablets By Mouth every day. Refills: 1. modafinil (Provigil 200 mg Tab) 1 Tablets By Mouth once a day (in the morning). Refills: 0. pantoprazole (pantoprazole 40 mg Oral EC Tab) 1 Tablets By Mouth every day. Refills: 1. PATIENT EDUCATION INFORMATION: Instructions: Diarrhea, Adult; Nausea, Adult Follow up: With: Address: When: [facility] [place] [id number] [place] (1[facility] In 3 days 08/12/2022 DIAGNOSIS: Abdominal pain; Diarrhea; Nausea Normal [facility] ED Patient Education Noteon 08-09-2022 ED Patient Education Note Gastroenterology Diarrhea, Adult Diarrhea is frequent loose and watery bowel movements. Diarrhea can make you feel weak and cause you to become dehydrated. Dehydration can make you tired and thirsty, cause you to have a dry mouth, and decrease how often you urinate. Diarrhea typically lasts 2?3 days. However, it can last longer if it is a sign of something more serious. It is important to treat your diarrhea as told by your health care provider. Follow these instructions at home: Eating and drinking Follow these recommendations as told by your health care provider: ? Take an oral rehydration solution (ORS). This is an ynmo-qyz-igjqtki medicine that helps return your body to its normal balance of nutrients and water. It is found at pharmacies and retail stores. ? Drink plenty of fluids, such as water, ice chips, diluted fruit juice, and low-calorie sports drinks. You can drink milk also, if desired. ? Avoid drinking fluids that contain a lot of sugar or caffeine, such as energy drinks, sports drinks, and soda. ? Eat bland, upmu-ng-ifudhz foods in small amounts as you are able. These foods include bananas, applesauce, rice, lean meats, toast, and crackers. ? Avoid alcohol. ? Avoid spicy or fatty foods. Medicines ? Take hedr-tnl-mlncppl and prescription medicines only as told by your health care provider. ? If you were prescribed an antibiotic medicine, take it as told by your health care provider. Do not stop using the antibiotic even if you start to feel better. General instructions ? Wash your hands often using soap and water. If soap and water are not available, use a hand payroll accounting manager. Others in the household should wash their hands as well. Hands should be washed: ? After using the toilet or changing a diaper. ? Before preparing, cooking, or serving food. ? While caring for a sick person or while visiting someone in a hospital. ? Drink enough fluid to keep your urine pale yellow. ? Rest at home while you recover. ? Watch your condition for any changes. ? Take a warm bath to relieve any burning or pain from frequent diarrhea episodes. ? Keep all follow-up visits as told by your health care provider. This is important. Contact a health care provider if: ? You have a fever. ? Your diarrhea gets worse. ? You have new symptoms. ? You cannot keep fluids down. ? You feel light-headed or dizzy. ? You have a headache. ? You have muscle cramps. Get help right away if: ? You have chest pain. ? You feel extremely weak or you faint. ? You have bloody or black stools or stools that look like tar. ? You have severe pain, cramping, or bloating in your abdomen. ? You have trouble breathing or you are breathing very quickly. ? Your heart is beating very quickly. ? Your skin feels cold and clammy. ? You feel confused. ? You have signs of dehydration, such as: ? Dark urine, very little urine, or no urine. ? Cracked lips. ? Dry mouth. ? Sunken eyes. ? Sleepiness. ? Weakness. Summary ? Diarrhea is frequent loose and watery bowel movements. Diarrhea can make you feel weak and cause you to become dehydrated. ? Drink enough fluids to keep your urine pale yellow. ? Make sure that you wash your hands after using the toilet. If soap and water are not available, use hand payroll accounting manager. ? Contact a health care provider if your diarrhea gets worse or you have new symptoms. ? Get help right away if you have signs of dehydration. This information is not intended to replace advice given to you by your health care provider. Make sure you discuss any questions you have with your health care provider. Document Released: 06/22/2003 Document Revised: 11/18/2019 Document Reviewed: 12/06/2018 [employer] Patient Education ? 2019 [employer]. Nausea, Adult Nausea is the feeling that you have an upset stomach or that you are about to vomit. Nausea on its own is not usually a serious concern, but it may be an early sign of a more serious medical problem. As nausea gets worse, it can lead to vomiting. If vomiting develops, or if you are not able to drink enough fluids, you are at risk of becoming dehydrated. Dehydration can make you tired and thirsty, cause you to have a dry mouth, and decrease how often you urinate. Older adults and people with other diseases or a weak disease-fighting system (immune system) are at higher risk for dehydration. The main goals of treating your nausea are: ? To relieve your nausea. ? To limit repeated nausea episodes. ? To prevent vomiting and dehydration. Follow these instructions at home: Watch your symptoms for any changes. Tell your health care provider about them. Follow these instructions as told by your health care provider. Eating and drinking ? Take an oral rehydration solution (ORS). This is a drink (more content not included)... Normal [facility] ED Patient Summaryon 023 ED Patient Summary [place] [id number] Patient Discharge Instructions Person Information Name: CINDY SYLVESTER Age: 26 Years Arrival Date: 08/09/2022 16:50:34 Discharge Diagnosis: Abdominal pain; Diarrhea; Nausea Primary Care Physician: Bi BELL DO Provider Information Primary Provider: Jv Dacosta DO Advanced Cardiac Surgeon:Domingo Mcmillan PA-C The exam and treatment you received in the Emergency Department were for an urgent problem and are not intended as complete care. It is important that you follow up with a doctor, nurse practitioner, or physician?s study assistant for ongoing care. If your symptoms become worse or you do not improve as expected and you are unable to reach your usual health care provider, you should return to the Emergency Department. We are available 24 hours a day. CINDY SYLVESTER has been given the following list of patient education materials, prescriptions and follow-up instructions: Follow-up Instructions: With: Address: When: Bi BELL [address] [place] [address] [employer] (1) In 3 days 08/12/2022 In the event that this physician does not participate in your insurance network, please consult with your insurance company to find a nearby participating provider. Patient Education Materials: Diarrhea, Adult; Nausea, Adult A MESSAGE TO ALL PATIENTS REGARDING OPIOIDS PRESCRIPTION OPIOIDS: WHAT YOU NEED TO KNOW Prescription opioids can be used to help relieve uxhesdfu-ql-ehqwzc pain and are often prescribed following a surgery or injury, or for certain health conditions. These medications can be an important part of the treatment but also come with serious risks. It is important to work with your healthcare provider to make sure you are getting the safest, most effective care. WHAT ARE THE RISKS AND SIDE EFFECTS OF OPIOID USE? Prescription opioids carry serious risks of addiction and overdose, especially with prolonged use. An opioid overdose, often marked by slowed breathing, can cause sudden . The use of prescription opioids can have a number of side effects as well, even when taken as directed: ? Tolerance?meaning you might need to take more of the medication for the same pain relief ? Physical dependence?meaning you have symptoms of withdrawal when a medication is stopped ? Increased sensitivity to pain ? Constipation ? Nausea, vomiting, and dry mouth ? Sleepiness and dizziness ? Confusion ? Depression ? Low levels of testosterone that can result in lower sex drive, energy, and strength ? Itching and sweating RISKS ARE GREATER WITH: ? History of drug misuse, substance use disorder, or overdose ? Mental health conditions (such as depression or anxiety) ? Sleep apnea ? Older age (65 years and older) ? Avoid alcohol while taking prescription opioids. Also, unless specifically advised by your health care provider, medications to avoid include: ? Benzodiazepines (such as Xanax or Valium) ? Muscle relaxants (such as Soma or Flexeril) ? Hypnotics (such as Ambien or Lunesta) ? Other prescription opioids KNOW YOUR OPTIONS Talk to your health care provider about ways to manage your pain that don?t involve prescription opioids. Some of these options may actually work better and have fewer risks and side effects. Options may include: ? Pain relievers such as acetaminophen, ibuprofen, and naproxen ? Some medication that are also used for depression or seizures ? Physical therapy and exercise ? Cognitive behavioral therapy, a psychological, goal-directed approach, in which patients learn how to modify physical, behavioral, and emotional triggers of pain and stress. IF YOU ARE PRESCRIBED OPIOIDS FOR PAIN: ? Never take opioids in greater amounts or more often than prescribed. ? Follow up with your primary health care provider. o Work together to create a plan on how to manage your pain. o Talk about ways to help manage your pain that don?t involve prescription opioids. o Talk about any and all concerns and side effects. ? Help prevent misuse and abuse o Never sell or share prescription opioids. o Never use another person?s prescription opioids. ? Store prescription opioids in a secure place and out of reach of others (this may include visitors, children, friends, and family). ? Safely dispose of unused prescription opioids: Find your community drug take-back program or your pharmacy mail-back program, or flush them down the toilet, following guidance from the Food and Drug Administration (www.fda.gov/Drugs/R esourcesForYou). ? Visit www.cdc.gov/drugover dose to learn about the risks of opioids abuse and overdose. ? If you believe you may be struggling with addiction, tell your health home care music therapist and ask for guidance or call [facility] National Helpline at 8-636- (more content not included)... Normal [facility] HEMATOLOGYOrdered By: SYSTEM SYSTEM on 08-09-2022 Basophils/100 WBC (Bld) 0.6 % Normal 0.0 - 2.0 % [facility] HemeAutoSS Basophils/Leukocytes Auto (Bld) [Pure # fraction] 0.1 E9/L Normal 0.0 - 0.2 E9/L [facility] HemeAutoSS Eosinophils/100 WBC (Bld) 1.2 % Normal 0.0 - 8.0 % [facility] HemeAutoSS Eosinophils/Leukocyt es Auto (Bld) [Pure # fraction] 0.1 E9/L Normal 0.0 - 0.5 E9/L [facility] HemeAutoSS Lymphocytes/100 WBC (Bld) 17.1 % Normal 14.0 - 50.0 % [facility] HemeAutoSS Lymphocytes/Leukocyt es Auto (Bld) [Pure # fraction] 1.9 E9/L Normal 1.0 - 4.0 E9/L [facility] HemeAutoSS Monocytes/100 WBC (Bld) 9.2 % Normal 4.0 - 14.0 % [facility] HemeAutoSS Monocytes/Leukocytes Auto (Bld) [Pure # fraction] 1.0 E9/L Normal 0.2 - 1.0 E9/L [facility] HemeAutoSS Neutrophils/100 WBC (Bld) 71.9 % Normal 36.0 - 75.0 % [facility] HemeAutoSS Neutrophils/Leukocyt es Auto (Bld) [Pure # fraction] 7.8 E9/L High 2.0 - 7.5 E9/L [facility] HemeAutoSS HEMATOLOGYOrdered By: Gia Torres on 08-09-2022 Erythrocyte distribution width (RBC) [Ratio] 13.2 % Normal 10.9 - 14.2 % [facility] HemeAutoSS Hematocrit (Bld) [Volume fraction] 53.9 % High 37.7 - 49.0 % [facility] HemeAutoSS Hemoglobin (Bld) [Mass/Vol] 18.0 g/dL High 13.5 - 17.5 gm/dL [facility] HemeAutoSS MCH (RBC) [Entitic mass] 29.1 pg Normal 27.0 - 34.0 pg [facility] HemeAutoSS MCHC (RBC) [Mass/Vol] 33.3 g/dL Normal 31.4 - 36.0 gm/dL [facility] HemeAutoSS MCV (RBC) [Entitic vol] 87.4 fL Normal 80.0 - 100.0 fL [facility] HemeAutoSS Platelet mean volume (Bld) [Entitic vol] 7.2 fL Normal 6.4 - 10.8 fL [facility] HemeAutoSS Platelets (Bld) [#/Vol] 328.0 E9/L Normal 150.0 - 500.0 E9/L [facility] HemeAutoSS RBC (Bld) [#/Vol] 6.2 E12/L High 4.3 - 5.9 E12/L [facility]eAuto[facility] WBC corrected for nucl RBC Auto (Bld) [#/Vol] 10.9 E9/L Normal 4.0 - 11.0 E9/L [facility] HemeAutoSS Hep Func Panelon 08-09-2022 Albumin [Mass/Vol] 5.3 g/dL High 3.3-5.0 [facility] Comment on above: Performed By: #### 2 [id number], [id number], 3243116, 6587037, 9828430, 5961459 ####[facility] [address] [place] [address] Albumin/Globulin (S) [Mass conc ratio] 1.6 Normal 1.1-2.2 [facility] Comment on above: Performed By: #### 2 926259, 68536944, 0542864, 3464144, 7537050, 3733914 ####[facility] [address] [place] [address] ALP [Catalytic activity/Vol] 108 Int._Unit/L High 21-98 [facility] Comment on above: Performed By: #### 2 219557, [id number], 5643318, 1358678, 7925805, 0815800 ####[address] [address] ALT No additional P-5'-P [Catalytic activity/Vol] 46 Int._Unit/L Normal 6-46 [facility] Comment on above: Performed By: #### 2 520312, 05092371, 4620205, 9904576, 0953333, 1632862 ####[facility] [address] [place] [address] AST [Catalytic activity/Vol] 26 Int._Unit/L Normal 5-43 [facility] Comment on above: Performed By: #### 2 142604, 51039785, 2304010, 9922385, 9036275, 3819788 ####[facility] [address] [place] [address] Bilirubin [Mass/Vol] 1.3 mg/dL High 0.0-1.1 [facility] Comment on above: Performed By: #### 2 532019, 42739526, 0892640, 4515648, 6752273, 0524446 ####[facility] [address] [place] [address] Bilirubin.direct [Mass/Vol] 0.2 mg/dL Normal 0.1-0.4 [facility] Comment on above: Performed By: #### 2 987810, 70845857, 2045058, 6020115, 6166995, 2551010 ####[facility] [address] [place] [address] Bilirubin.indirect [Mass or moles/Vol] 1.0 mg/dL High 0.1-0.9 [facility] Comment on above: Performed By: #### 2 814119, 83908537, 9455396, 9147725, 9525261, 1621164 ####[place] [address] [place] [address] Globulin (S) [Mass/Vol] 3.4 g/dL Normal 1.4-4.0 [facility] Comment on above: Performed By: #### 2 397530, 88022308, 7964463, 1847182, 8017971, 7096766 ####[address] [address] Protein [Mass/Vol] 8.7 g/dL High 6.0-7.8 [facility] Comment on above: Performed By: #### 2 157865, 21861474, 8180755, 3283111, 1085410, 5031253 ####[address] [address] Lipase Levelon 08-09-2022 Lipase [Catalytic activity/Vol] 24 U/L Normal 13-58 [facility] Comment on above: Performed By: #### 2 983754, 94829521, 6574787, 8762541, 7425335, 1175077 ####[address] [address] Reminderson 08-09-2022 Reminders - From: Trupti Marques CNP To: Sri Tyler; Sent: 08/08/2022 08:58:32 EST Show up: 08/08/2022 08:59:00 EST Subject: Ambulatory Reminder Reminder/Recall Colonoscopy in 2031. 04/06/2032 - From: rSi Tyler To: [facility] - Reminders/Recalls; Sent: 08/09/2022 13:13:14 EST ! Show up: 02/14/2032 13:13:00 EDT Due Date/Time: 03/16/2032 13:13:00 EDT Normal [facility] UA With Cult Reflexon 2022 Bilirubin Ql (U) Negative Normal Negative [facility] Comment on above: Performed By: #### 1 [id number] ####[facility] [address] [place] [address] Clarity (U) CLEAR Normal Clear [facility] Comment on above: Performed By: #### 1 [id number] ####[facility] [address] [place] [address] Color (U) YELLOW Normal Yellow [facility] Comment on above: Performed By: #### 1 8143956 ####[facility] [address] [place] [address] Epithelial cells.squamous LM.HPF (Urine sed) [#/Area] 3-4 Normal 0-2 [facility] Comment on above: Performed By: #### 1 0030047 ####[facility] [address] [place] [address] Glucose Test strip (U) [Mass/Vol] Negative Normal Negative [facility] Comment on above: Performed By: #### 1 5671823 ####[facility] [address] [place] [address] Hemoglobin Ql (U) Negative Normal Negative [facility] Comment on above: Performed By: #### 1 7490547 ####[facility] [address] [place] [address] Ketones (U) [Mass/Vol] Negative Normal Negative [facility] Comment on above: Performed By: #### 1 5984816 ####[facility] [address] [place] [address] Frank[place]muth.plasma/Lithi um.RBC (Bld) [Mass ratio] 0-3 Normal 0-3 [facility] Comment on above: Performed By: #### 1 [id number] ####[address] [address] Nitrite Ql (U) Negative Normal Negative [facility] Comment on above: Performed By: #### 1 2184967 ####[address] [address] pH (U) 6.0 [pH] Invalid Interpretation Code 5.0-9.0 [facility] Comment on above: Performed By: #### 1 2416653 ####[address] [address] Protein (U) [Mass/Vol] Negative Normal Negative [facility] Comment on above: Performed By: #### 1 2226814 ####[place] [address] Specific gravity (U) [Rel density] 1.015 Invalid Interpretation Code 1.005-1.030 [facility] Comment on above: Performed By: #### 1 0497081 ####[place] [address] Type of Urine collection method Clean Catch Normal [facility] Comment on above: Performed By: #### 1 7674194 ####[address] [address] Urobilinogen Qn (U) 0.2 {Casa'U}/dL Normal 0.0-1.0 [facility] Comment on above: Performed By: #### 1 3899484 ####[address] [address] WBC Auto Ql (U) Negative Normal Negative [facility] Comment on above: Performed By: #### 1 6447181 ####[address] [address] WBC LM.HPF (Urine sed) [#/Area] 0-5 Normal 0-5 [facility] Comment on above: Performed By: #### 1 1987067 ####[facility] [address] [place] [address] URINALYSISOrdered By: Jose Rose on 08-09-2022 Bilirubin Ql (U) Negative (08/09/22 7:08 PM) Normal Negative [facility] UA Auto SS Clarity (U) Clear (08/09/22 7:08 PM) Normal Clear [facility] UA Auto SS Color (U) Yellow (08/09/22 7:08 PM) Normal Yellow [facility] UA Auto SS Epithelial cells.squamous LM.HPF (Urine sed) [#/Area] 3-4 /HPF Normal 0-2/HPF [facility] UA Auto SS Glucose Test strip (U) [Mass/Vol] Negative (08/09/22 7:08 PM) Normal Negative [facility] UA Auto SS Hemoglobin Ql (U) Negative (08/09/22 7:08 PM) Normal Negative [facility] UA Auto SS Ketones (U) [Mass/Vol] Negative (08/09/22 7:08 PM) Normal Negative [facility] UA Auto SS Frank[place]muth.plasma/Lithi um.RBC (Bld) [Mass ratio] 0-3 /HPF Normal 0-3/HPF [facility] UA Auto SS Nitrite Ql (U) Negative (08/09/22 7:08 PM) Normal Negative [facility] UA Auto SS pH (U) 6.0 *NA* (08/09/22 7:08 PM) Invalid Interpretation Code 5.0 - 9.0 [facility] UA Auto SS Protein (U) [Mass/Vol] Negative (08/09/22 7:08 PM) Normal Negative [facility] UA Auto SS Specific gravity (U) [Rel density] 1.015 *NA* (08/09/22 7:08 PM) Invalid Interpretation Code 1.005 - 1.030 [facility] UA Auto SS UA Spec Desc Clean Catch (08/09/22 7:08 PM) Normal [facility] UA Auto SS Urobilinogen Qn (U) 0.0430237 {Casa'U}/dL Normal 0.0 - 1.0 EU/dL [facility] UA Auto SS WBC Auto Ql (U) Negative (08/09/22 7:08 PM) Normal Negative [facility] UA Auto SS WBC LM.HPF (Urine sed) [#/Area] 0-5 /HPF Normal 0-5/HPF [facility] UA Auto SS eGFRon 08-09-2022 GFR/1.73 sq M.predicted among blacks MDRD (S/P/Bld) [Vol rate/Area] mL/min/{1.73_m2} Normal >=59 [facility] Comment on above: Order Comment: Order added by Discern Expert. Result Comment: eGFR is race adjusted. AA=. Performed By: #### 2 681684, 92401302, 6341274, 2158969, 1198703, 3361110 ####[facility] [address] [place] [address] GFR/1.73 sq M.predicted among non-blacks MDRD (S/P/Bld) [Vol rate/Area] mL/min/{1.73_m2} Normal >=59 [facility] Comment on above: Order Comment: Order added by Discern Expert. Result Comment: [employer] mayra kidney disease could be indicated at eGFR's of less than 60 mL/min/1.73m2. Kidney failure is indicated at less than 15 mL/min/1.73m2. Performed By: #### 2 353882, 08714547, 0389404, 9893517, 3342662, 6707948 ####[facility] [address] [place] [address] Ambulatory Visit Summaryon 0 08-08-2022 Ambulatory Visit Summary CINDY SYLVESTER :1995 Visit Date:08/08/2022 Ambulatory Visit Instructions Your Diagnosis Chronic diarrhea Fecal incontinence Abdominal pain Acid reflux Your Care Team Attending Physician - Trupti Marques CNP Primary Care Physician - Bi BELL DO This Is Your Medications List Contact prescribing physician if questions or concerns clobetasol topical (Olux 0.05% topical foam) cyanocobalamin (Vitamin B12) duloxetine ergocalciferol (Vitamin D) famotidine (famotidine 40 mg Tab) losartan (losartan 25 mg Tab) metoprolol (metoprolol 50 mg ER Tab) modafinil (Provigil 200 mg Tab) pantoprazole (pantoprazole 40 mg Oral EC Tab) Procedures Performed Colonoscopy (03/29/2022), EGD (esophagogastroduode noscopy) gastric outlet reduction (03/29/2022), denies. Discharge Vitals Temperature (Temporal Artery) 36.2 ?C Heart Rate (Peripheral) 105 Blood Pressure 129/82 Height 193 cm Height 76 in Weight 115.2 kg Weight 253.44 lb BMI 30.93 What to do next Scheduled Follow-Up Appointments Sunday 9:30 AM EST With: Where: [facility] 2022 9:00 AM EST With: Where: [facility] Sunday 10:20 AM EDT With: Trupti Marques CNP Where: [facility] Normal [facility] Gastroenterology Office/Clin ic Noteon 08-08-2022 Gastroenterology Office/Clinic Note Chief Complaint EGD and colonosopy results. HPI Staff Patient is a 26 year old male here today to review EGD and colonoscopy results. History of Present Illness Patient is a 26-year-old male who presents for follow-up from EGD/colonoscopy completed 03/29/[address] Meza. Presents with female visitor today. Patient was previously evaluated by Dr. Meza 02/16/2022 for fecal incontinence. Note indicated patient also with chronic abdominal pain over the last year with associated chronic diarrhea. Patient was ordered stool testing to evaluate for infection, stool testing to evaluate for pancreatic insufficiency, and EGD/colonoscopy. Patient was also ordered an anorectal manometry to further evaluate fecal incontinence. Previous labs 02/2022 revealed normal H&H, normal BUN, normal creatinine, slightly elevated ALT of 47, otherwise normal liver enzymes. Stool testing negative for infectious process 02/2022. Patient also had celiac blood testing that was negative 02/2022. Fecal pancreatic elastase 02/2022 was normal. EGD completed 03/29/2022 revealed normal esophagus, normal gastric mucosa, normal duodenum, duodenal biopsy within normal limits, stomach biopsy was slightly dilated gastric glands, PPI changes, minimal chronic inflammation, negative for H. pylori. Colonoscopy completed 03/29/2022 revealed normal terminal ileum, normal colonic mucosa and was recommended to repeat colonoscopy in 2031. No anorectal manometry available to review during today's encounter. During today's visit, patient reports he has been having watery/loose stools off/on over the last year with fecal incontinence daily. Is also having generalized abdominal pain for the last 3 months described as achy/difficult to describe. He explains having epigastric pain that occurs all the time and RLQ pain that occurs off/on. Patient explains he was not aware of anorectal manometry ordered by Dr. Meza. He reports having acid reflux that occurs depending on what he eats. Is currently taking pantoprazole 40mg daily that is not helping his acid reflux. He explains he was not aware of pepcid 40mg at bedtime and had not started yet. Is not taking fiber supplementation. Denies fevers, nausea/vomiting, and denies having any other GI complaints. Review of Systems PHQ Score Initial Depression Screen Score: 0 ROS - Provider Constitutional: no fever, no chills. Skin: no Jaundice. ENMT: Denies dysphagia. Respiratory: no shortness of breath. Cardiovascular: no chest pain. Gastrointestinal: no nausea, no vomiting, yes diarrhea, no GI bleeding. Physical Exam Vitals & Measurements T: 36.2 ?C(Temporal Artery) HR: 105(Peripheral) BP: 129/82 HT: 76 in HT: 193 cm WT: 115.2 kg WT: 253.44 lb BMI: 30.93 General: Well developed, well nourished, in no acute distress Head: Normocephalic/atraum atic Lungs: Normal respiratory effort and clear to auscultation Cardio: Regular rate and rhythm, normal S1 and S2, no murmur, no rub Abdomen: Soft, non-distended, non-tender. Normoactive bowel sounds present in all 4 abdominal quadrants, bilaterally. Mental Status: Alert and oriented x3. Normal mood and affect Assessment/Plan 1. Chronic diarrhea (K52.9: Noninfective gastroenteritis and colitis, unspecified) Previous labs 02/2022 revealed normal H&H, normal BUN, normal creatinine, slightly elevated ALT of 47, otherwise normal liver enzymes. Stool testing negative for infectious process 02/2022. Patient also had celiac blood testing that was negative 02/2022. Fecal pancreatic elastase 02/2022 was normal. Colonoscopy completed 03/29/2022 revealed normal terminal ileum, normal colonic mucosa and was recommended to repeat colonoscopy in 2031. No anorectal manometry available to review during today's encounter. Is having watery/loose stools off/on over the last year with fecal incontinence daily. Educated to complete anorectal manometry- ordered today. Educated to start fiber supplementation daily 1 capsule- separate 2 hours from other medications. 2. Fecal incontinence (R15.9: Full incontinence of feces) Previous labs 02/2022 revealed normal H&H, normal BUN, normal creatinine, slightly elevated ALT of 47, otherwise normal liver enzymes. Stool testing negative for infectious process 02/2022. Patient also had celiac blood testing that was negative 02/2022. Fecal pancreatic elastase 02/2022 was normal. Colonoscopy completed 03/29/2022 revealed normal terminal ileum, normal colonic mucosa and was recommended to repeat colonoscopy in 2031. No anorectal manometry available to review during today's encounter. Is having watery/loose stools off/on over the last year with fecal incontinence daily. Educated to complete anorectal manometry. Educated to start fiber supplementation daily 1 capsule- separate 2 hours from other medications. Ordered: Rectal Manometry (Hospital Procedure) 3. Abdominal pain (R10.9: Unspecified abdominal pain) Celiac blood testing that was negative 02/2022. Fecal pancreatic elastase 8 (more content not included)... Normal [facility] Comment on above: Result Comment: Elec tronically Signed By: Trupti Marques CNP\.br\Date and Time Signed: 08/08/22 09:01 EST Patient Educationon 08-08-19 Patient Education Gastroenterology Abdominal Pain, Adult Pain in the abdomen (abdominal pain) can be caused by many things. Often, abdominal pain is not serious and it gets better with no treatment or by being treated at home. However, sometimes abdominal pain is serious. Your health care provider will ask questions about your medical history and do a physical exam to try to determine the cause of your abdominal pain. Follow these instructions at home: Medicines ? Take [id number] and prescription medicines only as told by your health care provider. ? Do not take a laxative unless told by your health care provider. General instructions ? Watch your condition for any changes. ? Drink enough fluid to keep your urine pale yellow. ? Keep all follow-up visits as told by your health care provider. This is important. Contact a health care provider if: ? Your abdominal pain changes or gets worse. ? You are not hungry or you lose weight without trying. ? You are constipated or have diarrhea for more than 2?3 days. ? You have pain when you urinate or have a bowel movement. ? Your abdominal pain wakes you up at night. ? Your pain gets worse with meals, after eating, or with certain foods. ? You are vomiting and cannot keep anything down. ? You have a fever. ? You have blood in your urine. Get help right away if: ? Your pain does not go away as soon as your health care provider told you to expect. ? You cannot stop vomiting. ? Your pain is only in areas of the abdomen, such as the right side or the left lower portion of the abdomen. Pain on the right side could be caused by appendicitis. ? You have bloody or black stools, or stools that look like tar. ? You have severe pain, cramping, or bloating in your abdomen. ? You have signs of dehydration, such as: ? Dark urine, very little urine, or no urine. ? Cracked lips. ? Dry mouth. ? Sunken eyes. ? Sleepiness. ? Weakness. ? You have trouble breathing or chest pain. Summary ? Often, abdominal pain is not serious and it gets better with no treatment or by being treated at home. However, sometimes abdominal pain is serious. ? Watch your condition for any changes. ? Take bobf-ryd-ifkpyzf and prescription medicines only as told by your health care provider. ? Contact a health care provider if your abdominal pain changes or gets worse. ? Get help right away if you have severe pain, cramping, or bloating in your abdomen. This information is not intended to replace advice given to you by your health care provider. Make sure you discuss any questions you have with your health care provider. Document Released: 04/11/2006 Document Revised: 11/10/2019 Document Reviewed: 11/10/2019 Elsevier Patient Education ? 2019 [employer] [facility] Consultation Noteon 08-03-19 Consultation Note [id number] #1.00CD:127 [facility] Auth for Release of Medical Recordson 06-19-2022 Auth for Release of Medical Records [id number] #1.00CD:127 Normal [facility] CHEMISTRYOrdered By: SYSTEM SYSTEM on 03-03-2022 Albumin [Mass/Vol] 4.4 g/dL Normal 3.3 - 5.0 gm/dL [facility] Albumin/Globulin [Mass ratio] 1.4 {ratio} Normal 1.1 - 2.2 [facility] ALP [Catalytic activity/Vol] 81 [iU]/d Normal 21 - 98 Int._Unit/L [facility] ALT No additional P-5'-P [Catalytic activity/Vol] 47 [iU]/d High 6 - 46 Int._Unit/L [facility] Anion gap [Moles/Vol] 13 mmol/L Normal 6 - 16 mEq/L [facility] AST [Catalytic activity/Vol] 26 [iU]/d Normal 5 - 43 Int._Unit/L [facility] Bilirubin [Mass/Vol] 0.9 mg/dL Normal 0.0 - 1.1 mg/dL [facility] Calcium [Mass/Vol] 9.5 mg/dL Normal 8.9 - 11.1 mg/dL [facility] Chloride [Moles/Vol] 100 mmol/L Low 101 - 111 mmol/ L [facility] CO2 [Moles/Vol] 27 mmol/L Normal 21 - 31 mmol/L [facility] Creatinine [Mass/Vol] 0.9 mg/dL Normal 0.5 - 1.3 mg/dL [facility] GFR/1.73 sq M.predicted among blacks MDRD (S/P/Bld) [Vol rate/Area] mL/min/1.73 m2 Normal >=59mL/min/1.73 m2 FT Chem S GFR/1.73 sq M.predicted among non-blacks MDRD (S/P/Bld) [Vol rate/Area] mL/min/1.73 m2 Normal >=59mL/min/1.73 m2 FT Chem S Globulin (S) [Mass/Vol] 3.1 g/dL Normal 1.4 - 4.0 gm/dL [facility] Remisol Glucose [Mass/Vol] 86 mg/dL Normal 55 - 199 mg/dL [facility] Potassium [Moles/Vol] 4.1 mmol/L Normal 3.5 - 5.3 mmol/L [facility] Protein [Mass/Vol] 7.5 g/dL Normal 6.0 - 7.8 gm/dL [facility] Sodium [Moles/Vol] 136 mmol/L Normal 135 - 145 mmol/L [facility] TSH Qn 1.33 m[IU]/L Normal 0.34 - 5.60 mcIU/mL [facility] Urea nitrogen [Mass/Vol] 11 mg/dL Normal 5 - 21 mg/dL [facility] Urea nitrogen/Creatinine [Mass ratio] 12 mg/mg Normal 10 - 20 [facility] HEMATOLOGYOrdered By: Veena Bedolla on 03-03-2022 Erythrocyte distribution width (RBC) [Ratio] 12.8 % Normal 10.9 - 14.2 % [facility] HemeAutoSS Hematocrit (Bld) [Volume fraction] 44.1 % Normal 37.7 - 49.0 % [facility] HemeAutoSS Hemoglobin (Bld) [Mass/Vol] 15.4 g/dL Normal 13.5 - 17.5 gm/dL [facility] HemeAutoSS MCH (RBC) [Entitic mass] 29.5 pg Normal 27.0 - 34.0 pg [facility] HemeAutoSS MCHC (RBC) [Mass/Vol] 35.0 g/dL Normal 31.4 - 36.0 gm/dL [facility] HemeAutoSS MCV (RBC) [Entitic vol] 84.4 fL Normal 80.0 - 100.0 fL [facility] HemeAutoSS Platelet mean volume (Bld) [Entitic vol] 7.6 fL Normal 6.4 - 10.8 fL [facility] HemeAutoSS Platelets (Bld) [#/Vol] 260.0 E9/L Normal 150.0 - 500.0 E9/L [facility] HemeAutoSS RBC (Bld) [#/Vol] 5.2 E12/L Normal 4.3 - 5.9 E12/L [facility] HemeAutoSS WBC corrected for nucl RBC Auto (Bld) [#/Vol] 5.7 E9/L Normal 4.0 - 11.0 E9/L [facility] HemeAutoSS MICRO OTHER TESTSOrdered By: Val Gonzalez on 03-03-2022 Fecal WBC Lactoferrin Negative (03/03/22 1:00 PM) Normal Negative [facility] Man Sero Vital Signs Date Time Vital Sign Value Performing Clinician Facility 05-28-2023 14:56-0500 Diastolic blood pressure 78 mm[Hg] Cesilia Jeter MD Work Phone: [facility] 05-28-2023 14:56-0500 Heart rate 112 /min Cesilia Jeter MD Work Phone: [facility] 05-28-2023 14:56-0500 Systolic blood pressure 106 mm[Hg] Cesilia Jeter MD Work Phone: [facility] 05-28-2023 13:59-0500 Body height 193 cm Cesilia Jeter MD Work Phone: [facility] 05-28-2023 13:59-0500 Body mass index (BMI) [Ratio] 30.07 kg/m2 Cesilia Jeter MD Work Phone: [facility] 05-28-2023 13:59-0500 Body weight 112.04 kg Cesilia Jeter MD Work Phone: [facility] 04-05-2023 13:57-0400 Body height 193.04 cm Bi Bell Work Phone: [facility] DO Work Phone: 04-05-2023 13:57-0400 Body mass index (BMI) [Ratio] 28.85 kg/m2 Bi Bell Work Phone: [facility] DO Work Phone: 04-05-2023 13:57-0400 Body surface area Derived from formula 2.38 m2 Bi Bell Work Phone: [facility] DO Work Phone: 04-05-2023 13:57-0400 Body weight 107.5 kg Bi Bell Work Phone: [facility] DO Work Phone: 04-05-2023 13:57-0400 Diastolic blood pressure 80 mm[Hg] Bi Bell Work Phone: [facility] DO Work Phone: 04-05-2023 13:57-0400 Heart rate 111 /min Bi Bell Work Phone: [facility] DO Work Phone: 04-05-2023 13:57-0400 Systolic blood pressure 130 mm[Hg] Bi Bell Work Phone: [facility] DO Work Phone: 02-15-2023 11:49-0400 Diastolic blood pressure 89 mm[Hg] DO Bi Bell Work Phone: [facility] 02-15-2023 11:49-0400 Heart rate 106 /min DO Bi Bell Work Phone: [facility] 02-15-2023 11:49-0400 Systolic blood pressure 145 mm[Hg] DO Bi Bell Work Phone: [facility] 02-15-2023 11:39-0400 Body height 193.04 cm DO Bimaxi Bell Work Phone: [facility] 02-15-2023 11:39-0400 Body weight 113.39 kg DO Bi Bell Work Phone: [facility] 02-15-2023 10:00-0400 SaO2% (BldA) [Mass fraction] 99 % DO Bimaxi Bell Work Phone: [facility] 02-07-2023 21:26-0400 Body temperature 98.24 [degF] Ghulam Masterson [facility] 02-07-2023 21:26-0400 Diastolic blood pressure 78 mm[Hg] Ghulam Masterson [facility] 02-07-2023 21:26-0400 Heart rate 102 /min Ghulam Masterson [facility] 02-07-2023 21:26-0400 Respiratory rate 15 /min Ghulam Masterson [facility] 02-07-2023 21:26-0400 SaO2% (BldA) [Mass fraction] 98 % Ghulam Masterson [facility] 02-07-2023 21:26-0400 Systolic blood pressure 132 mm[Hg] Ghulam Masterson [facility] 12-14-2022 14:56-0400 Diastolic blood pressure 80 mm[Hg] Bi Bell Work Phone: [facility] DO Work Phone: 12-14-2022 14:56-0400 Diastolic blood pressure 76 mm[Hg] Bi Bell Work Phone: [facility] DO Work Phone: 12-14-2022 14:56-0400 Systolic blood pressure 130 mm[Hg] Bi Bell Work Phone: [facility] DO Work Phone: 12-14-2022 14:56-0400 Systolic blood pressure 128 mm[Hg] Bi Bell Work Phone: [facility] DO Work Phone: 12-14-2022 13:39-0400 Diastolic blood pressure 88 mm[Hg] Bi Bell Work Phone: [facility] DO Work Phone: 12-14-2022 13:39-0400 Systolic blood pressure 120 mm[Hg] Bi Bell Work Phone: [facility] DO Work Phone: 12-14-2022 13:37-0400 Body height 193.04 cm Bi Bell Work Phone: [facility] DO Work Phone: 12-14-2022 13:37-0400 Body mass index (BMI) [Ratio] 30.07 kg/m2 Bi Bell Work Phone: [facility] DO Work Phone: 12-14-2022 13:37-0400 Body surface area Derived from formula 2.42 m2 Bi Bell Work Phone: [facility] DO Work Phone: 12-14-2022 13:37-0400 Body weight 112.04 kg Bi Hoyt Ray Work Phone: [facility] DO Work Phone: 12-14-2022 13:37-0400 Diastolic blood pressure 88 mm[Hg] Bi Bell Work Phone: [facility] DO Work Phone: 12-14-2022 13:37-0400 Heart rate 106 /min Bi Bell Work Phone: [facility] DO Work Phone: 12-14-2022 13:37-0400 Systolic blood pressure 128 mm[Hg] Ib S Ray Work Phone: [facility] DO Work Phone: 11-23-2022 13:49-0400 Blood Pressure Location Chapman SALAM [facility] 11-23-2022 13:49-0400 Diastolic blood pressure 91 mm[Hg] Chapman SALAM [facility] 11-23-2022 13:49-0400 Heart rate 111 /min Chapman SALAM [facility] 11-23-2022 13:49-0400 Respiratory rate 16 /min Chapman SALAM [facility] 11-23-2022 13:49-0400 SaO2% (BldA) [Mass fraction] 98 % Chapman SALAM [facility] 11-23-2022 13:49-0400 Systolic blood pressure 134 mm[Hg] Chapman SALAM [facility] 10-20-2022 10:08-0400 Blood Pressure Location Truptilanette Marques [facility] 10-20-2022 10:08-0400 Body temperature 97.34 [degF] Trupti Marques [facility] 10-20-2022 10:08-0400 Diastolic blood pressure 67 mm[Hg] Trupti Escamillametz [facility] 10-20-2022 10:08-0400 Heart rate 126 /min Trupti Marques [facility] 10-20-2022 10:08-0400 Systolic blood pressure 110 mm[Hg] Trupti Escamillametz [facility] 08-09-2022 20:00-0500 Diastolic blood pressure 73 mm[Hg] Jv Dacosta [facility] 08-09-2022 20:00-0500 Heart rate 92 /min Jv Dacosta [facility] 08-09-2022 20:00-0500 Mean blood pressure 98 mm[Hg] Jv Dacosta [facility] 08-09-2022 20:00-0500 Respiratory rate 18 /min Jv Dacosta [facility] 08-09-2022 20:00-0500 SaO2% (BldA) [Mass fraction] 98 % Jv Praneeth [facility] 08-09-2022 20:00-0500 Systolic blood pressure 149 mm[Hg] Jv Praneeth [facility] 08-09-2022 19:00-0500 Diastolic blood pressure 65 mm[Hg] Jv Praneeth [facility] 08-09-2022 19:00-0500 Heart rate 97 /min Jvaustin Dacosta [facility] 08-09-2022 19:00-0500 Mean blood pressure 90 mm[Hg] Jv Dacosta [facility] 08-09-2022 19:00-0500 SaO2% (BldA) [Mass fraction] 96 % Jv Dacosta [facility] 08-09-2022 19:00-0500 Systolic blood pressure 140 mm[Hg] Jv Praneeth [facility] 08-09-2022 18:00-0500 Diastolic blood pressure 74 mm[Hg] Jv Praneeth [facility] 08-09-2022 18:00-0500 Mean blood pressure 87 mm[Hg] Jv Praneeth [facility] 08-09-2022 18:00-0500 SaO2% (BldA) [Mass fraction] 95 % Jv Praneeth [facility] 08-09-2022 18:00-0500 Systolic blood pressure 112 mm[Hg] Jv Praneeth [facility] 08-09-2022 16:54-0500 Body temperature 97.52 [degF] vJ Dacosta [facility] 08-09-2022 16:54-0500 Heart rate 124 /min Jv Dacosta [facility] 08-08-2022 08:24-0500 Blood Pressure Location Trupti Marques [facility] 08-08-2022 08:24-0500 Body temperature 97.16 [degF] Trupti Marques [facility] 08-08-2022 08:24-0500 Diastolic blood pressure 82 mm[Hg] Trupti Marques [facility] 08-08-2022 08:24-0500 Heart rate 105 /min Trupti Marques [facility] 08-08-2022 08:24-0500 Systolic blood pressure 129 mm[Hg] Trupti Marques [facility] 04-13-2022 16:08-0400 Blood Pressure Location Bi BELL [facility] 04-13-2022 16:08-0400 Body temperature 97.16 [degF] Bi BELL [facility] 04-13-2022 16:08-0400 Diastolic blood pressure 82 mm[Hg] Bi BELL [facility] 04-13-2022 16:08-0400 Heart rate 119 /min Bi BELL [facility] 04-13-2022 16:08-0400 SaO2% (BldA) [Mass fraction] 96 % Bi BELL [facility] 04-13-2022 16:08-0400 Systolic blood pressure 142 mm[Hg] Bi BELL [facility] 03-27-2022 11:19-0400 Blood Pressure Location Bi RYA [facility] 03-27-2022 11:19-0400 Body temperature 97.16 [degF] Bi RAY [facility] 03-27-2022 11:19-0400 Diastolic blood pressure 88 mm[Hg] Bi RAY [facility] 03-27-2022 11:19-0400 Heart rate 108 /min Bi BELL [facility] 03-27-2022 11:19-0400 SaO2% (BldA) [Mass fraction] 98 % Bi BELL [facility] 03-27-2022 11:19-0400 Systolic blood pressure 140 mm[Hg] Bi BELL [facility] 11-29-2021 15:45-0400 Blood Pressure Location Bi BELL [facility] 11-29-2021 15:45-0400 Diastolic blood pressure 82 mm[Hg] Bi BELL [facility] 11-29-2021 15:45-0400 Heart rate 110 /min Bi BELL [facility] 11-29-2021 15:45-0400 SaO2% (BldA) [Mass fraction] 98 % Bi BELL [facility] 11-29-2021 15:45-0400 Systolic blood pressure 124 mm[Hg] Bi BELL [facility] 10-06-2021 15:06-0400 Blood Pressure Location Bi RAY [facility] 10-06-2021 15:06-0400 Body temperature 97.16 [degF] Bi BELL [facility] 10-06-2021 15:06-0400 Diastolic blood pressure 92 mm[Hg] Bi BELL [facility] 10-06-2021 15:06-0400 Heart rate 113 /min Bi BELL [facility] 10-06-2021 15:06-0400 SaO2% (BldA) [Mass fraction] 97 % Bi BELL [facility] 10-06-2021 15:06-0400 Systolic blood pressure 148 mm[Hg] Bi BELL [facility] Encounters Encounter Date Encounter Type Care Provider Facility Start: 05-28-2023 End: 05-28-2023 ambulatory [facility] Start: 05-28-2023 End: 05-28-2023 Office outpatient visit 15 minutes Cesilia Jeter MD Work Phone: [facility] Comment on above: Tachycardia (Primary Dx); Atrial fibrillation, unspecified type (CMS/HCC); Heart murmur Start: 05-01-2023 End: 05-02-2023 ambulatory [facility] Start: 04-05-2023 Office outpatient vi sit 25 minutes Bi Bell Work Phone: [facility] DO Work Phone: Start: 04-05-[address] Cesilia Vazquez ty:[id number] Start: 02-15-2023 Chart Update Bi yan Work Phone: [facility] DO Work Phone: Start: 02-15-2023 ambulatory Minnie Hahn lity:[id number] Start: 02-15-2023 End: 02-15-2023 ambulatory Cesilia Jeter Facility:[facility] Start: 02-15-2023 End: 02-15-2023 ambulatory DO Bi Bell Work Phone: [facility] Work Phone: Start: 02-15-2023 End: 02-15-2023 Patient encounter procedure DO Bi Bell Work Phone: [facility] Work Phone: Start: 02-08-2023 Chart Update Bi yan Work Phone: [facility] DO Work Phone: Start: 02-07-2023 End: 02-08-2023 Emergency department patient visit Ghulam Masterson Facility:[facility] Start: 02-07-2023 End: 02-07-2023 Emergency department patient visit Ghulam Masterson [facility] Start: 02-05-[address] Bi Friedman Ray Facility:[id number] Start: 01-15-2023 End: 01-16-2023 ambulatory WENDI MENDOZA Facility:[facility] Start: 01-07-[address] Cesilia Vazquez ty:[id number] Start: 12-26-2022 End: 12-27-2022 ambulatory Bi BELL Facility:[facility] Start: 12-26-2022 Patient encounter procedure Bi Bell Work Phone: [facility] DO Work Phone: Start: 12-26-[address] Cesilia Vazquez ty: Start: 12-20-2022 End: 12-21-2022 ambulatory Bi BELL Facility:[facility] Start: 12-20-2022 End: 12-20-2022 Patient encounter procedure Bi BELL [facility] Start: 12-14-2022 Office consultation new/estab patient 60 min Bi Bell Work Phone: [facility] DO Work Phone: Start: 12-14-2022 Patient encounter procedure Bi Bell Work Phone: [facility] DO Work Phone: Start: 12-14-[address] Cesilia Vazquez ty: Start: 12-06-2022 End: 12-07-2022 ambulatory Palmer Levi Facility:[facility] Start: 11-29-2022 End: 11-30-2022 ambulatory Bi BELL Facility:[facility] Start: 11-23-2022 End: 11-24-2022 ambulatory Ad[facility] Start: 11-23-2022 End: 11-23-2022 Patient encounter procedure Chapman DEREKAM [facility] Start: 11-17-2022 End: 11-18-2022 ambulatory Chapman SALAM Facility:[facility] Start: 11-01-2022 End: 11-02-2022 ambulatory XXXX NONE Facility:[facility] Start: 11-01-2022 End: 11-01-2022 Patient encounter procedure [facility] Start: 10-31-2022 ambulatory Winsome Davenport Facility: [facility] Start: 10-30-2022 Chart abstracting Mike mallory MD Work Phone: Hematology/Oncology Start: 10-20-2022 End: 10-21-2022 ambulatory Trupti Marques Facility:[facility] Start: 10-20-2022 End: 10-20-2022 Patient encounter procedure Trupti Marques [facility] Start: 09-14-2022 End: 09-15-2022 ambulatory XXXX NONE Facility:[facility] Start: 09-14-2022 End: 09-14-2022 Patient encounter procedure Adela MEZA [facility] Start: 09-05-2022 End: 09-06-2022 ambulatory Dixon Mcwilliams Facility:[facility] Start: 09-05-2022 End: 09-05-2022 Patient encounter procedure Dixon Mcwilliams [facility] Start: 09-05-[address] Cesilia Vazquez ty:[id number] Start: 08-21-2022 End: 08-22-2022 ambulatory Tarik Sheehan Facility:[facility] Start: 08-21-2022 End: 08-21-2022 Patient encounter procedure Tarik Sheehan [facility] Start: 08-15-2022 End: 08-16-2022 ambulatory Trupti Marques Facility:[facility] Start: 08-15-2022 End: 08-15-2022 Patient encounter procedure Trupti Marques [facility] Start: 08-09-2022 End: 08-09-2022 Emergency department patient visit Jv Dacosta Facility:[facility] Start: 08-09-2022 End: 08-09-2022 Emergency department patient visit Jv Dacosta [facility] Start: 08-08-2022 End: 08-09-2022 ambulatory [facility] Start: 08-08-2022 End: 08-08-2022 Patient encounter procedure Trupti Marques [facility] Start: 07-13-2022 End: 07-14-2022 ambulatory Bi BELL Facility: [facility] Start: 05-08-2022 End: 05-17-2022 Pre-admission assessment Bi BELL [facility] Start: 04-13-2022 End: 04-13-2022 Patient encounter procedure Bi BELL [facility] Start: 03-27-2022 End: 03-27-2022 Patient encounter procedure Bi BELL [facility] Start: 03-03-2022 End: 03-03-2022 Patient encounter procedure Chapman SIDNEY [facility] Start: 03-03-2022 End: 03-03-2022 Lab Drop off Adela MEZA [facility] Start: 12-05-2021 End: 12-05-2021 Patient encounter procedure Gustavo Zepeda [facility] Start: 11-29-2021 End: 11-29-2021 Patient encounter procedure Bi BELL [facility] Start: 11-22-2021 End: 11-22-2021 Patient encounter procedure Bi BELL [facility] Start: 11-21-2021 End: 02-19-2022 Recurring Cruzito ALDANA [facility] Start: 11-21-2021 End: 02-19-2022 Special examination status Cruzito ALDANA [facility] Start: 10-06-2021 End: 10-06-2021 Patient encounter procedure Bi BELL [facility] [place] Procedures Date Procedure Procedure Detail Performing Clinician Start: 05-28-2023 FOLLOW UP IN CARDIOLOGY CESILIA JETER Start: 05-01-2023 STRESS TEST ONLY CESILIA JETER Start: 02-05-2023 Echocardiography Bi Bell Work Phone: Start: 03-29-2022 Colonoscopy Bi BELL Start: 03-29-2022 Esophagogastroduodenoscopy gastric outlet reduction Bi BELL denies Bi BELL Operative procedure on knee Bi Bell Work Phone: Total colonoscopy Bi Bell Work Phone: Comment on above: 2022; Plan of Treatment Date Care Activity Detail Author Start: 09-30-2045 Zoster Vaccines (1 of 2) Zoste r Vaccines (1 of 2) [facility] Start: 09-15-2023 DTaP/Tdap/Td Vaccine s (8 - Td or Tdap) DTaP/Tdap/Td Vaccines (8 - Td or Tdap) [facility] Start: 03-16-2023 Influenza vaccination C [facility] Start: 02-22-2023 FUV, Provider: Cesilia Jeter, Status: Pen, Time: 10:15 AM FUV, Provider: Cesilia Jeter, Status: Pen, Time: 10:15 AM [facility] DO Work Phone: Start: 02-15-2023 SURGNON, Provider: Minnie Vásquez, Status: Pen, Time: 11:00 AM [facility]ORM[facility], Provider: Minnie Vásquez, Status: Pen, Time: 11:00 AM -[facility] DO Work Phone: Start: 02-05-2023 ECHO, Provider: NEISHA ACKERMAN [facility] 01,[id number], Status: Pen, Time: 2:30 PM ECHO, Provider: NERI [facility] 01,[id number], Status: Pen, Time: 2:30 PM -[facility] DO Work Phone: Start: 12-26-2022 HOLTER 48, Provider: EDDI REBOLLEDO ELECTRONEURODIAGNOSTIC TECHNOLOGIST 1,[id number], Status: Pen, Time: 1:00 PM HOLTER 48, Provider: EDDI REBOLLEDO ELECTRONEURODIAGNOSTIC TECHNOLOGIST 1,[id number], Status: Pen, Time: 1:[address] [facility] [facility] 250 DO Work Phone: Start: 07-16-2022 [facility]MENT [facility] Start: 09-30-2014 Urine microalbumin profile DTAP,TDAP,TD (1 - Tdap) [facility] Start: 09-30-2013 HEPATITIS C SCREENING HEPATITIS C [facility] Start: 09-30-2013 Hepatitis C screening Hepatitis C [facility] Start: 09-30-2013 HIV SCREENING HIV SCREENING [facility] Start: 11-16-1999 Varicella vaccination Varicell a Vaccines (1 of 2 - 2-dose childhood series) [facility] Start: 04-02-1996 COVID-19 VACCINE (#1) COVID-19 VACCI NE (#1) [facility] Start: 1995 HEPATITIS B (1 of 3 - 3-dose series) HEPATITIS B (1 of 3 - 3-dose series) [facility] Start: 1995 HIV screening HIV Screening [facility] Start: 1995 Lipid panel Lipid Panel [facility] Start: 1995 Yearly Adult [facility] Immunization Date Immunization Notes Care Provider Francisco barney 09-14-2013 tetanus toxoid, redu ezio diphtheria toxoid, and acellular pertussis vaccine, adsorbed Cesilia Jeter MD Work Phone: [facility] Work Phone: 09-14-2013 tetanus toxoid, redu ezio diphtheria toxoid, and acellular pertussis vaccine, adsorbed Bi BELL [facility] Comment on above: Early/Late Reason: N ursing Judgment Early/Late Reason: N ursing Judgment 11-06-2008 meningococcal ACWY vaccine, unspecified formulation Trupti Marques [facility] 11-06-2008 meningococcal polysaccharide (groups A, C, Y and W-135) diphtheria toxoid conjugate vaccine (MCV4P) Bi Bell [facility]: 11-06-2008 tetanus toxoid, redu ezio diphtheria toxoid, and acellular pertussis vaccine, adsorbed Trupti Marques [facility] 04-23-2003 influenza virus vaccine, unspecified formulation Trupti Marques [facility] 04-23-2003 influenza, seasonal, injectable Bi Bell Work Phone: [facility] Work Phone: 07-11-2002 influenza virus vaccine, unspecified formulation Trupti Marques [facility] 07-11-2002 influenza, seasonal, injectable Bi Bell Work Phone: [facility] [employer] 250 DO Work Phone: 06-04-2002 influenza virus vaccine, unspecified formulation Trupti Marques [facility] 06-04-2002 influenza, seasonal, injectable Bi Bell Work Phone: [facility] Work Phone: 10-19-1999 diphtheria, tetanus toxoids and acellular pertussis vaccine, unspecified formulation Bi Bell Work Phone: [facility] 10-19-1999 DTaP, unspecified formulation Trupti Shelli [facility] 10-19-1999 measles, mumps and rubella virus vaccine Trupti Marques [facility] 10-19-1999 poliovirus vaccine, unspecified formulation Bi Bell Work Phone: [facility] 250 DO Work Phone: 12-26-1996 diphtheria, tetanus toxoids and acellular pertussis vaccine, unspecified formulation Bi Bell Work Phone: [facility] Work Phone: 12-26-1996 DTaP, unspecified formulation Trupti Shelli [facility] 12-26-1996 haemophilus influenz ae type b vaccine, conjugate unspecified formulation Bi Bell Work Phone: [facility] Work Phone: 12-26-1996 Hib, unspecified formulation Trupti Shelli [facility] 12-26-1996 measles, mumps and rubella virus vaccine Trupti Shelli [facility] 03-28-1996 DTP-Haemophilus influenzae type b conjugate vaccine Bi Bell Work Phone: [facility] Work Phone: 03-28-1996 DTP-Hib Trupti Shelli [facility] 03-28-1996 hepatitis B vaccine, pediatric or pediatric/adolescent dosage Trupti Shelli [facility] 03-28-1996 trivalent poliovirus vaccine, live, oral Bi S Ray Work Phone: [facility] [employer] 250 DO Work Phone: 01-25-1996 DTP-Haemophilus influenzae type b conjugate vaccine Bi S Ray Work Phone: [facility] [employer] 250 DO Work Phone: 01-25-1996 DTP-Hib Trupti Shelli [facility] 01-25-1996 trivalent poliovirus vaccine, live, oral Bi S Ray Work Phone: [facility] [employer] 250 DO Work Phone: 1995 DTP-Haemophilus influenzae type b conjugate vaccine Bi S Ray Work Phone: [facility] [employer] 250 DO Work Phone: 1995 DTP-Hib Trupti Shelli [facility] 1995 hepatitis B vaccine, pediatric or pediatric/adolescent dosage Trupti Shelli [facility] 1995 trivalent poliovirus vaccine, live, oral Bi S Ray Work Phone: [facility] [employer] 250 DO Work Phone: 1995 hepatitis B vaccine, pediatric or pediatric/adolescent dosage Trupti Shelli [facility] NEGATED: Highlighted row has not occurred!08-08-2022 influenza virus vaccine, unspecified formulation Trupti Shelli [facility] NEGATED: Highlighted row has not occurred!02-16-2022 influenza virus vaccine, unspecified formulation Cruzito ALDANA [facility] NEGATED: Highlighted row has not occurred!08-10-2020 influenza virus vaccine, unspecified formulation Bi BELL [facility] [place] Payers Date Payer Category Payer Self-pay [id number] 2021 Medicaid [employer] [facility] [employer] [place] [id number] 2021-Present [phone] [place] [id number] Medicaid [id number] 2021 Unknown 2021 Unknown [id number] 1995 Unknown [id number] 2.16.840.1.164959.3.579.2.1068 1995 Unknown [id number] 2.16.840.1.264520.3.579.2.356 1995 Unknown [id number] 2.16.840.1.601190.3.579.2.356 1995 Unknown [id number] 2.16.840.1.658490.3.579.2.356 1995 Unknown [id number] 2.16.840.1.776175.3.579.2.356 1995 Unknown [id number] 2.16.840.1.423671.3.579.2.356 1995 Unknown [id number] 2.16.840.1.683080.3.579.2.356 1995 Unknown [id number] 2.16.840.1.368203.3.579.2.1246 1995 Unknown [id number] 2.16.840.1.200009.3.579.2.1244 1995 Unknown [id number] 2.16.840.1.369948.3.579.2. 1995 Unknown [id number] 2.16.840.1.390265.3.579.2. 1995 Unknown [id number] 2.16.840.1.793012.3.579.2 1995 Unknown [id number] 2.16.840.1.606901.3.579.2 1995 Unknown [id number] 2.16.840.1.477204.3.579.2 1995 Unknown [id number] 2.16.840.1.346395.3.579.2 1995 Unknown [id number] 2.16.840.1.137756.3.579.2 1995 Unknown [id number] 2.16.840.1.148959.3.579.2 1995 Unknown [id number] 2.16.840.1.627191.3.579.2. 1995 Unknown [id number] 2.16.840.1.237786.3.579.2 1995 Unknown [id number] 2.16.840.1.005050.3.579.2 1995 Unknown [id number] 2.16.840.1.425234.3.579.2 1995 Unknown [id number] 2.16.840.1.070441.3.579.2 1995 Unknown [id number] 2.16.840.1.038521.3.579.2 1995 Unknown [id number] 2.16.840.1.379502.3.579.2.727 1995 Unknown [id number] 2.16.840.1.347965.3.579.2.727 1995 Unknown [id number] 2.16.840.1.877354.3.579.2.727 1995 Unknown [id number] 2.16.840.1.927397.3.579.2.727 1995 Unknown [id number] 2.16.840.1.766150.3.579.2.727 1995 Unknown [id number] 2.16.840.1.487990.3.579.2.727 1995 Unknown [id number] 2.16.840.1.799842.3.579.2.727 Unknown [employer] BC/BS [id number] Unknown [employer] [id number] Unknown [id number] 2.16.840.1.065249.3.579.2.531 Social History Date Type Detail Facility Start: 09-04-2019 End: 05-25-2023 Tobacco smoking status Never smoked tobacco (finding) [facility] Start: 05-28-2023 Sex Assigned At Male F [facility] consumption unknown [facility] Start: 1995 Sex Assigned At Not on file C [facility] Start: 05-28-2023 Occasional caffeine consumption Occasional caffeine consumption [facility]eri 250 DO Work Phone: Start: 1995 Sex Assigned At Male F [facility] Start: 05-25-2023 Tobacco use and exposure Smokeless tobacco non-user [facility] Work Phone: Start: 05-28-2023 Alcohol intake Current drinke r of alcohol (finding) [facility] Work Phone: Start: 05-25-2023 Alcohol Comment social [facility] Work Phone: Start: 05-18-2023 End: 05-28-2023 Exposure to SARS-CoV-2 (event) Not sure [facility] Functional Status Date Assessment Result Facility 02-07-2023 Functional Status N/A [facility] 11-23-2022 Functional Status N/A [facility] 10-20-2022 Functional Status N/A [facility] 08-09-2022 Functional Status N/A [facility] 08-08-2022 Functional Status N/A [facility] 04-13-2022 Functional Status N/A [facility] 03-27-2022 Functional Status N/A [facility] Clinical Notes 10-06-2021 to 05-28-2023 Cesilia Jeter MD - 05/28/2023 2:15 PM ESTPatient InstructionsLaboratoryRadiologyLaboratoryRadiologyRadiologyLaboratoryLaboratory Note Date & Type Note Facility 05-28-2023 History of Present illness Narrative Last seen 04/05/23 : Subjective : Patient developed cough to acebutolol, however acebutolol did not help his symptoms of palpitations and lightheadedness. He is now back on diltiazem. Complains of achy joints, multiple. Followed by pain medicine. He reports that pain management is planning low back injections. Did not bring medications Orthostatic in office with sitting blood pressure 116/82 with a pulse of 86 standing blood pressure 106/78 with a pulse of 112. Tilt table test also was more consistent with orthostatic hypotension. History so Far : 1. Multitude of symptoms to include palpitations shortness of breath profound fatigue feeling of muscle weakness, possible autoimmune disorder that is being worked up, no history of COVID no history of infectious mononucleosis no known coronary artery disease. Currently unable to work. 2. Patient had a sleep study done recently results are pending 3. Hypertension 4. GERD 5. Autoimmune disorder 6. Details of autoimmune disorder are unclear to me 7. Chronic diarrhea and abdominal pain 8.History of migraine headaches 9. History of bowel incontinence 10. Possible irritable bowel syndrome 11. Small intestinal bacterial overgrowth 12. Idiopathic small fiber peripheral neuropathy. 13. Low vitamin B12 and vitamin D levels on supplementation 14. Echocardiogram January 2023-left atrium 3 cm LV end-systolic dimension 3.3 cm LV wall thickness 0.8 cm grossly normal valves normal RV size and systolic function RVSP could not be calculated 15. 48-hour Holter monitor January 2023-predominant rhythm sinus minimum sinus rate 55 average sinus rate 94 maximum heart rate 154 bpm isolated ventricular premature beats and supraventricular premature beats no atrial fibrillation or malignant dysrhythmias, patient did not report any symptoms and did not report activity status. If tachycardia occurred with minimal activity or at rest inappropriate sinus tachycardia cannot be excluded 16. Tilt table testing February 2023-after sublingual nitroglycerin patient developed borderline low blood pressure prodromal symptoms significant sinus tachycardia diaphoresis and impending syncope. 17. Treadmill stress test-05/01/23 :stage II Sergio protocol 7 mets 88% age-predicted maximum heart rate below average functional capacity, no diagnostic ST-T abnormalities resting heart rate upper normal range 100 bpm Wright treadmill score 5+ Objective Wt Readings from Last 3 Encounters: 05/28/23 112 kg (247 lb) 05/01/23 108 kg (237 lb) 12/14/22 112 kg (247 lb) Physical Exam: GENERAL APPEARANCE: in no acute distress. CHEST: Symmetric and non-tender. INTEGUMENT: Skin warm and dry HEENT: No gross abnormalities identified.No pallor or scleral icterus. NECK: Supple, no JVD, no bruit. NEURO/PSHCY: Alert and oriented x3; appropriate behavior and responses and responses LUNGS: Clear to auscultation bilaterally; normal respiratory effort. HEART: Rate and rhythm regular with no evident murmur; no gallop appreciated. ABDOMEN: Soft, non tender. MUSCULOSKELETAL: No gross deformities. EXTREMITIES: Warm There is no edema noted. Meds: Current Outpatient Medications Medication Instructions acebutolol (SECTRAL) 200 mg, oral, Daily Cardizem LA 120 mg, oral, Daily cholecalciferol (Vitamin D-3) 125 MCG (5000 UT) capsule cyanocobalamin (VITAMIN B-12) 1,000 mcg, oral, Daily DULoxetine (CYMBALTA) 60 mg, oral, Daily, For 30 days famotidine (Pepcid) 40 mg tablet 1 tablet, oral, Daily losartan (Cozaar) 25 mg tablet 1 tablet, oral, Daily Nurtec ODT 75 mg, oral, at onset OF migraine for 30 days Allergies Allergen Reactions Cephalexin Unknown Cyproheptadine Drowsiness, Other and Unknown Other reaction(s): Other (See Comments), Unknown Problem List: Patient Active Problem List Diagnosis Date Noted Chronic diarrhea 05/25/2023 Irritable bowel syndrome with diarrhea 05/25/2023 Insomnia 05/25/2023 Insufficient sleep syndrome 05/25/2023 Sensation of change in body temperature 05/25/2023 Small intestinal bacterial overgrowth (SIBO) 05/25/2023 Syncopal episodes 05/25/2023 Tachycardia 05/25/2023 Vitamin B12 deficiency 05/25/2023 Vitamin D deficiency 05/25/2023 Assessment: 1. Probable postural orthostatic tachycardia syndrome 2. Multiple comorbidities as listed above 3. Hypertension-therefore unable to use Florinef 4. Acebutolol caused persistent cough, and had to be discontinued. Patient is back on diltiazem 5. Continue sertraline instead of duloxetine, may be better for postural orthostatic hypotension, defer to primary 6. Chest pain-best described as atypical. 7. Modafinil has increased alertness 8. Treadmill stress test-05/01/23 :stage II Sergio protocol 7 mets 88% age-predicted maximum heart rate below average functional capacity, no diagnostic ST-T abnormalities resting heart rate upper normal range 100 bpm Wright treadmill score 5+ 9. Results of tilt table test was reviewed Recommendations: 1. We have completed cardiac work-up. 2. Evaluation so far has suggested that he has a structurally normal heart, decreased overall functional capacity, no evidence of flow-limiting coronary artery disease, exaggerated head up tilt response consistent with orthostatic hypotension, and he was orthostatic in office. 3. We are avoiding Florinef because of history of hypertension. 4. Beta-blockers are ideal, but that he did not tolerate acebutolol, he is now back on diltiazem. 5. Aggressive lifestyle modification to include excessive hydration, compression socks, avoidance of sudden changes in posture and avoiding situations that are likely to precipitate arterial hypotension and tachycardia are recommended. 6. Titrate blood pressure management to upright blood pressure 7. Follow-up with me on an as-needed basis. Thank you for allowing us to participate in Cindy's care, please do not call if further questions arise, Sincerely, Cesilia Jeter MD [facility] documented in this encounter [facility] Work Phone: 05-28-2023 Instructions Sri Steward LPN - 05/28/2023 2:15 PM EST Please bring all medicines, vitamins, and herbal supplements with you when you come to the office. Prescriptions will not be filled unless you are compliant with your follow up appointments or have a follow up appointment scheduled as per instruction of your physician. Refills should be requested at the time of your visit. Follow up as needed. documented in this encounter [facility] Work Phone: 02-08-2023 Hospital Discharge instructions Patient Education 02/07/2023 22:12:56 Dental Pain Dental Pain Dental pain is often a sign that something is wrong with your teeth or gums. It is also something that can occur following dental treatment. If you have dental pain, it is important to contact your dental care provider, especially if the cause of the pain has not been determined. Dental pain may be of varying intensity and can be caused by many things, including: Tooth decay (cavities or caries). Cavities are caused by bacteria that produce acids that irritate the nerve of your tooth, making it sensitive to air and hot or cold temperatures. This eventually causes discomfort or pain. Abscess or infection. Once the bacteria reach the inner part of the tooth (pulp), a bacterial infection (dental abscess) can occur. Pus typically collects at the end of the root of a tooth. Injury. A crack in the tooth. Gum recession exposing the root, and possibly the nerves, of a tooth. Gum (periodontal)disease. Abnormal grinding or clenching. Poor or improper home care. An unknown reason (idiopathic). Your pain may be mild or severe. It may occur when you are: Chewing. Exposed to hot or cold temperatures. Eating or drinking sugary foods or beverages, such as soda or candy. Your pain may be constant, or it may come and go without cause. Follow these instructions at home: The following actions may help to lessen any discomfort that you are feeling before or after getting dental care. Medicines Take spky-ixy-siultxu and prescription medicines only as told by your dental care provider. If you were prescribed an antibiotic medicine, take it as told by your dental care provider. Do not stop taking the antibiotic even if you start to feel better. Eating and drinking Avoid foods or drinks that cause you pain, such as: Very hot or very cold foods or drinks. Sweet or sugary foods or drinks. Managing pain and swelling Ice can sometimes be used to reduce pain and swelling, especially if the pain is following dental treatment. If directed, put ice on the painful area of your face. To do this: ?Put ice in a plastic bag. ?Place a towel between your skin and the bag. ?Leave the ice on for 20 minutes, 2 3 times a day. ?Remove the ice if your skin turns bright red. This is very important. If you cannot feel pain, heat, or cold, you have a greater risk of damage to the area. Brushing your teeth To keep your mouth and gums healthy, brush your teeth twice a day using a fluoride toothpaste. Use a toothpaste made for sensitive teeth as directed by your dental care provider, especially if the root is exposed. Always brush your teeth with a soft-bristled toothbrush. This will help prevent irritation to your gums. General instructions Floss at least once a day. Do not apply heat to the outside of the face. Gargle with a mixture of salt and water 3 4 times a day or as needed. To make salt water, completely dissolve 1 tsp (3 6 g) of salt in 1 cup (237 mL) of warm water. Keep all follow-up visits. This is important. Contact a dental care provider if: You have any unexplained dental pain. Your pain is not controlled with medicines. Your symptoms get worse. You have new symptoms. Get help right away if: You are unable to open your mouth. You are having trouble breathing or swallowing. You have a fever. You notice that your face, neck, or jaw is swollen. These symptoms may represent a serious problem that is an emergency. Do not wait to see if the symptoms will go away. Get medical help right away. Call your local emergency services (911 in the [place] Do not drive yourself to the hospital. Summary Dental pain may be caused by many things, including tooth decay and infection. Your pain may be mild or severe. Take pnsb-nwn-erodsuq and prescription medicines only as told by your dental care provider. Watch your dental pain for any changes. Let your dental care provider know if your symptoms get worse. This information is not intended to replace advice given to you by your health care provider. Make sure you discuss any questions you have with your health care provider. Document Revised: 04/06/2021 Document Reviewed: 04/06/2021 [employer] Patient Education 2022 [employer]inda. Follow Up Care 02/07/2023 21:24:21 With:Bi BELL Address: [address] [place] [address] [place] [address]- [phone] Business (1) When:02/10/2023 21:58:50 Comments:Follow-up with your primary care provider in 3 to 5 days. If symptoms worsen, do not improve, or new symptoms arise please report back to emergency department for further evaluation. [facility] 12-14-2022 History of Present illness Narrative 27-year-old was recently and initially seen December 2022 presents for follow-up after blood work tilt table test echocardiogram Holter monitor.On the tilt table test, there was presyncope, associated with arterial hypotension and elevated heart rate, raising possibility of POTS.Reviewed echocardiogram and Holter monitor results, they are within normal limitsComplains of intermittent anterior chest discomfort which is brief in duration, lasts a few seconds, sometimes it is a pressure sometimes with activity sometimes at rest. Clinically we cannot diagnose the reason for this pain. Could be GI could be cardiac could be musculoskeletal.Has history of hypertension, remains on losartan low-dose and diltiazem.History of migraine headaches.Reviewed CBC basic metabolic profile and thyroid profileHistory so far:1. Multitude of symptoms to include palpitations shortness of breath profound fatigue feeling of muscle weakness, possible autoimmune disorder that is being worked up, no history of COVID no history of infectious mononucleosis no known coronary artery disease. Currently unable to work.2. Patient had a sleep study done recently results are pending3. Hypertension4. GERD5. Autoimmune disorder6. Details of autoimmune disorder are unclear to me7. Chronic diarrhea and abdominal pain8.History of migraine headaches9. History of bowel [id number]. Possible irritable bowel [id number]. Small intestinal bacterial [id number]. Idiopathic small fiber peripheral neuropathy.13. Low vitamin B12 and vitamin D levels on [id number]. Echocardiogram January 2023-left atrium 3 cm LV end-systolic dimension 3.3 cm LV wall thickness 0.8 cm grossly normal valves normal RV size and systolic function RVSP could not be [id number]. 48-hour Holter monitor January 2023-predominant rhythm sinus minimum sinus rate 55 average sinus rate 94 maximum heart rate 154 bpm isolated ventricular premature beats and supraventricular premature beats no atrial fibrillation or malignant dysrhythmias, patient did not report any symptoms and did not report activity status. If tachycardia occurred with minimal activity or at rest inappropriate sinus tachycardia cannot be [id number]. Tilt table testing February 2023-after sublingual nitroglycerin patient developed borderline low blood pressure prodromal symptoms significant sinus tachycardia diaphoresis and impending syncope.Assessment:1. Probable postural orthostatic tachycardia syndrome2. Multiple comorbidities as listed above3. Hypertension-therefore unable to use Florinef4. Currently on diltiazem, will switch to acebutolol, hopefully neurology in agreement5. Continue sertraline instead of duloxetine, may be better for postural orthostatic hypotension, defer to primary6. Chest pain-best described as atypical.7. Modafinil has increased alertnessRecommendations:1. Discontinue diltiazem2. Acebutolol 200 mg p.o. twice daily3. Treadmill stress test does not require perfusion, does not need to interrupt acebutolol4. Follow-up after testing5. Stay hydrated at all times and avoid situations that may precipitate presyncope or syncope -[facility]eri 250 DO Work Phone: 10-20-2022 Hospital Discharge instructions Patient Education 10/20/2022 10:34:23 Gastroesophageal Reflux Disease, Adult Gastroesophageal Reflux Disease, Adult Gastroesophageal reflux (JEEVAN) happens when acid from the stomach flows up into the tube that connects the mouth and the stomach (esophagus). Normally, food travels down the esophagus and stays in the stomach to be digested. However, when a person has JEEVAN, food and stomach acid sometimes move back up into the esophagus. If this becomes a more serious problem, the person may be diagnosed with a disease called gastroesophageal reflux disease (GERD). GERD occurs when the reflux: Happens often. Causes frequent or severe symptoms. Causes problems such as damage to the esophagus. When stomach acid comes in contact with the esophagus, the acid may cause soreness (inflammation) in the esophagus. Over time, GERD may create small holes (ulcers) in the lining of the esophagus. What are the causes? This condition is caused by a problem with the muscle between the esophagus and the stomach (lower esophageal sphincter, or LES). Normally, the LES muscle closes after food passes through the esophagus to the stomach. When the LES is weakened or abnormal, it does not close properly, and that allows food and stomach acid to go back up into the esophagus. The LES can be weakened by certain dietary substances, medicines, and medical conditions, including: Tobacco use. . Having a hiatal hernia. Alcohol use. Certain foods and beverages, such as coffee, chocolate, onions, and peppermint. What increases the risk? You are more likely to develop this condition if you: Have an increased body weight. Have a connective tissue disorder. Use NSAID medicines. What are the signs or symptoms? Symptoms of this condition include: Heartburn. Difficult or painful swallowing. The feeling of having a lump in the throat. A bitter taste in the mouth. Bad breath. Having a large amount of saliva. Having an upset or bloated stomach. Belching. Chest pain. Different conditions can cause chest pain. Make sure you see your health care provider if you experience chest pain. Shortness of breath or wheezing. Ongoing (chronic) cough or a night-time cough. Wearing away of tooth enamel. Weight loss. How is this diagnosed? Your health care provider will take a medical history and perform a physical exam. To determine if you have mild or severe GERD, your health care provider may also monitor how you respond to treatment. You may also have tests, including: A test to examine your stomach and esophagus with a small camera (endoscopy). A test that measures the acidity level in your esophagus. A test that measures how much pressure is on your esophagus. A barium swallow or modified barium swallow test to show the shape, size, and functioning of your esophagus. How is this treated? The goal of treatment is to help relieve your symptoms and to prevent complications. Treatment for this condition may vary depending on how severe your symptoms are. Your health care provider may recommend: Changes to your diet. Medicine. Surgery. Follow these instructions at home: Eating and drinking Follow a diet as recommended by your health care provider. This may involve avoiding foods and drinks such as: ?Coffee and tea (with or without caffeine). ?Drinks that contain alcohol. ?Energy drinks and sports drinks. ?Carbonated drinks or sodas. ?Chocolate and cocoa. ?Peppermint and mint flavorings. ?Garlic and onions. ?Horseradish. ?Spicy and acidic foods, including peppers, chili powder, moffett powder, vinegar, hot sauces, and barbecue sauce. ?[place] fruit juices and citrus fruits, such as oranges, mynor, and limes. ?Tomato-based foods, such as red sauce, chili, salsa, and pizza with red sauce. ?Fried and fatty foods, such as donuts, anguillan fries, potato chips, and high-fat dressings. ?High-fat meats, such as hot dogs and fatty cuts of red and white meats, such as rib eye steak, sausage, ham, and bush. ?High-fat dairy items, such as whole milk, butter, and cream cheese. Eat small, frequent meals instead of large meals. Avoid drinking large amounts of liquid with your meals. Avoid eating meals during the 2 3 hours before bedtime. Avoid lying down right after you eat. Do not exercise right after you eat. Lifestyle Do not use any products that contain nicotine or tobacco, such as cigarettes, e-cigarettes, and chewing tobacco. If you need help quitting, ask your health care provider. Try to reduce your stress by using methods such as yoga or meditation. If you need help reducing stress, ask your health care provider. If you are overweight, reduce your weight to an amount that is healthy for you. Ask your health care provider for guidance about a safe weight loss goal. General instructions Pay attention to any changes in your symptoms. Take atky-wkf-adewqvm and prescription medicines only as told by your health care provider. Do not take aspirin, ibuprofen, or other NSAIDs unless your health care provider told you to do so. Wear loose-fitting clothing. Do not wear anything tight around your waist that causes pressure on your abdomen. Raise (elevate) the head of your bed about 6 inches (15 cm). Avoid bending over if this makes your symptoms worse. Keep all follow-up visits as told by your health care provider. This is important. Contact a health care provider if: You have: ?New symptoms. ?Unexplained weight loss. ?Difficulty swallowing or it hurts to swallow. ?Wheezing or a persistent cough. ?A hoarse voice. Your symptoms do not improve with treatment. Get help right away if you: Have pain in your arms, neck, jaw, teeth, or back. Feel sweaty, dizzy, or light-headed. Have chest pain or shortness of breath. Vomit and your vomit looks like blood or coffee grounds. Faint. Have stool that is bloody or black. Cannot swallow, drink, or eat. Summary Gastroesophageal reflux happens when acid from the stomach flows up into the esophagus. GERD is a disease in which the reflux happens often, causes frequent or severe symptoms, or causes problems such as damage to the esophagus. Treatment for this condition may vary depending on how severe your symptoms are. Your health care provider may recommend diet and lifestyle changes, medicine, or surgery. Contact a health care provider if you have new or worsening symptoms. Take hiuk-gik-zgwobzw and prescription medicines only as told by your health care provider. Do not take aspirin, ibuprofen, or other NSAIDs unless your health care provider told you to do so. Keep all follow-up visits as told by your health care provider. This is important. This information is not intended to replace advice given to you by your health care provider. Make sure you discuss any questions you have with your health care provider. Document Released: 04/11/2006 Document Revised: 01/08/2019 Document Reviewed: 01/08/2019 [employer] Patient Education 2019 [employer]. Follow Up Care 08/08/2022 09:22:14 With:Trupti Marques CNP Address: When:1 month [facility] 08-09-2022 Hospital Discharge instructions Patient Education 08/09/2022 19:45:10 Diarrhea, Adult Diarrhea, Adult Diarrhea is frequent loose and watery bowel movements. Diarrhea can make you feel weak and cause you to become dehydrated. Dehydration can make you tired and thirsty, cause you to have a dry mouth, and decrease how often you urinate. Diarrhea typically lasts 2 3 days. However, it can last longer if it is a sign of something more serious. It is important to treat your diarrhea as told by your health care provider. Follow these instructions at home: Eating and drinking Follow these recommendations as told by your health care provider: Take an oral rehydration solution (ORS). This is an gmhr-thd-fsnmesz medicine that helps return your body to its normal balance of nutrients and water. It is found at pharmacies and retail stores. Drink plenty of fluids, such as water, ice chips, diluted fruit juice, and low-calorie sports drinks. You can drink milk also, if desired. Avoid drinking fluids that contain a lot of sugar or caffeine, such as energy drinks, sports drinks, and soda. Eat bland, junk-ju-bblmis foods in small amounts as you are able. These foods include bananas, applesauce, rice, lean meats, toast, and crackers. Avoid alcohol. Avoid spicy or fatty foods. Medicines Take aupu-gye-sydjljr and prescription medicines only as told by your health care provider. If you were prescribed an antibiotic medicine, take it as told by your health care provider. Do not stop using the antibiotic even if you start to feel better. General instructions Wash your hands often using soap and water. If soap and water are not available, use a hand payroll accounting manager. Others in the household should wash their hands as well. Hands should be washed: ?After using the toilet or changing a diaper. ?Before preparing, cooking, or serving food. ?While caring for a sick person or while visiting someone in a hospital. Drink enough fluid to keep your urine pale yellow. Rest at home while you recover. Watch your condition for any changes. Take a warm bath to relieve any burning or pain from frequent diarrhea episodes. Keep all follow-up visits as told by your health care provider. This is important. Contact a health care provider if: You have a fever. Your diarrhea gets worse. You have new symptoms. You cannot keep fluids down. You feel light-headed or dizzy. You have a headache. You have muscle cramps. Get help right away if: You have chest pain. You feel extremely weak or you faint. You have bloody or black stools or stools that look like tar. You have severe pain, cramping, or bloating in your abdomen. You have trouble breathing or you are breathing very quickly. Your heart is beating very quickly. Your skin feels cold and clammy. You feel confused. You have signs of dehydration, such as: ?Dark urine, very little urine, or no urine. ?Cracked lips. ?Dry mouth. ?Sunken eyes. ?Sleepiness. ?Weakness. Summary Diarrhea is frequent loose and watery bowel movements. Diarrhea can make you feel weak and cause you to become dehydrated. Drink enough fluids to keep your urine pale yellow. Make sure that you wash your hands after using the toilet. If soap and water are not available, use hand payroll accounting manager. Contact a health care provider if your diarrhea gets worse or you have new symptoms. Get help right away if you have signs of dehydration. This information is not intended to replace advice given to you by your health care provider. Make sure you discuss any questions you have with your health care provider. Document Released: 06/22/2003 Document Revised: 11/18/2019 Document Reviewed: 12/06/2018 [employer] Patient Education 2020 [employer]. 08/09/2022 19:45:10 Nausea, Adult Nausea, Adult Nausea is the feeling that you have an upset stomach or that you are about to vomit. Nausea on its own is not usually a serious concern, but it may be an early sign of a more serious medical problem. As nausea gets worse, it can lead to vomiting. If vomiting develops, or if you are not able to drink enough fluids, you are at risk of becoming dehydrated. Dehydration can make you tired and thirsty, cause you to have a dry mouth, and decrease how often you urinate. Older adults and people with other diseases or a weak disease-fighting system (immune system) are at higher risk for dehydration. The main goals of treating your nausea are: To relieve your nausea. To limit repeated nausea episodes. To prevent vomiting and dehydration. Follow these instructions at home: Watch your symptoms for any changes. Tell your health care provider about them. Follow these instructions as told by your health care provider. Eating and drinking Take an oral rehydration solution (ORS). This is a drink that is sold at pharmacies and retail stores. Drink clear fluids slowly and in small amounts as you are able. Clear fluids include water, ice chips, low-calorie sports drinks, and fruit juice that has water added (diluted fruit juice). Eat bland, jhin-oq-gcnqrd foods in small amounts as you are able. These foods include bananas, applesauce, rice, lean meats, toast, and crackers. Avoid drinking fluids that contain a lot of sugar or caffeine, such as energy drinks, sports drinks, and soda. Avoid alcohol. Avoid spicy or fatty foods. General instructions Take oqiz-ryl-prxfard and prescription medicines only as told by your health care provider. Rest at home while you recover. Drink enough fluid to keep your urine pale yellow. Breathe slowly and deeply when you feel nauseous. Avoid smelling things that have strong odors. Wash your hands often using soap and water. If soap and water are not available, use hand payroll accounting manager. Make sure that all people in your household wash their hands well and often. Keep all follow-up visits as told by your health care provider. This is important. Contact a health care provider if: Your nausea gets worse. Your nausea does not go away after two days. You vomit. You cannot drink fluids without vomiting. You have any of the following: ?New symptoms. ?A fever. ?A headache. ?Muscle cramps. ?A rash. ?Pain while urinating. You feel light-headed or dizzy. Get help right away if: You have pain in your chest, neck, arm, or jaw. You feel extremely weak or you faint. You have vomit that is bright red or looks like coffee grounds. You have bloody or black stools or stools that look like tar. You have a severe headache, a stiff neck, or both. You have severe pain, cramping, or bloating in your abdomen. You have difficulty breathing or are breathing very quickly. Your heart is beating very quickly. Your skin feels cold and clammy. You feel confused. You have signs of dehydration, such as: ?Dark urine, very little urine, or no urine. ?Cracked lips. ?Dry mouth. ?Sunken eyes. ?Sleepiness. ?Weakness. These symptoms may represent a serious problem that is an emergency. Do not wait to see if the symptoms will go away. Get medical help right away. Call your local emergency services (911 in the [place] Do not drive yourself to the hospital. Summary Nausea is the feeling that you have an upset stomach or that you are about to vomit. Nausea on its own is not usually a serious concern, but it may be an early sign of a more serious medical problem. If vomiting develops, or if you are not able to drink enough fluids, you are at risk of becoming dehydrated. Follow recommendations for eating and drinking and take qdhk-xxs-frnpnqu and prescription medicines only as told by your health care provider. Contact a health care provider right away if your symptoms worsen or you have new symptoms. Keep all follow-up visits as told by your health care provider. This is important. This information is not intended to replace advice given to you by your health care provider. Make sure you discuss any questions you have with your health care provider. Document Released: 08/09/2005 Document Revised: 12/10/2018 Document Reviewed: 12/10/2018 [employer] Patient Education 2020 [employer] Follow Up Care 08/09/2022 16:52:07 With:Bi BELL Address: [address] [place], [place] [id number]- Business (1) When:08/12/2022 19:44:52 [facility] 08-08-2022 Hospital Discharge instructions Patient Education 08/08/2022 09:02:01 Abdominal Pain, Adult Abdominal Pain, Adult Pain in the abdomen (abdominal pain) can be caused by many things. Often, abdominal pain is not serious and it gets better with no treatment or by being treated at home. However, sometimes abdominal pain is serious. Your health care provider will ask questions about your medical history and do a physical exam to try to determine the cause of your abdominal pain. Follow these instructions at home: Medicines Take lkly-xpv-pepzdac and prescription medicines only as told by your health care provider. Do not take a laxative unless told by your health care provider. General instructions Watch your condition for any changes. Drink enough fluid to keep your urine pale yellow. Keep all follow-up visits as told by your health care provider. This is important. Contact a health care provider if: Your abdominal pain changes or gets worse. You are not hungry or you lose weight without trying. You are constipated or have diarrhea for more than 2 3 days. You have pain when you urinate or have a bowel movement. Your abdominal pain wakes you up at night. Your pain gets worse with meals, after eating, or with certain foods. You are vomiting and cannot keep anything down. You have a fever. You have blood in your urine. Get help right away if: Your pain does not go away as soon as your health care provider told you to expect. You cannot stop vomiting. Your pain is only in areas of the abdomen, such as the right side or the left lower portion of the abdomen. Pain on the right side could be caused by appendicitis. You have bloody or black stools, or stools that look like tar. You have severe pain, cramping, or bloating in your abdomen. You have signs of dehydration, such as: ?Dark urine, very little urine, or no urine. ?Cracked lips. ?Dry mouth. ?Sunken eyes. ?Sleepiness. ?Weakness. You have trouble breathing or chest pain. Summary Often, abdominal pain is not serious and it gets better with no treatment or by being treated at home. However, sometimes abdominal pain is serious. Watch your condition for any changes. Take kcdw-vfx-uukshvg and prescription medicines only as told by your health care provider. Contact a health care provider if your abdominal pain changes or gets worse. Get help right away if you have severe pain, cramping, or bloating in your abdomen. This information is not intended to replace advice given to you by your health care provider. Make sure you discuss any questions you have with your health care provider. Document Released: 04/11/2006 Document Revised: 11/10/2019 Document Reviewed: 11/10/2019 [employer] Patient Education 2019 [employer]. Follow Up Care 07/28/2022 15:35:46 With:Trupti Marques CNP Address: When:3 months [facility] 03-07-2022 Hospital Discharge instructions Follow Up Care 03/07/2022 09:02:10 With:Bi BELL DO, FAM Address: [address] [place] [address]- When: only if needed [facility] 10-06-2021 Evaluation + Plan note Future Scheduled TestsLyme Ab/wb Reflex 10/06/21 [facility] Evaluation + Plan note Future Appointments Appointment Date:11/29/2021 03:40:00 PM Scheduled Provider:Bi BELL DO Location:[facility] Appointment Type: Open [facility] Evaluation + Plan note Future Appointments Appointment Date:12/05/2021 04:00:00 PM Scheduled [facility] (FT[facility] Appointment Date:01/10/2022 03:40:00 PM Scheduled Provider:Bi BELL DO Location:[facility] Appointment Type: Open Future Scheduled TestsMRI Spine Lumbar w/o Contrast 12/05/21 [facility] Evaluation + Plan note Future Appointments Appointment Date:01/10/2022 03:40:00 PM Scheduled Provider:Bi BELL DO Location:[facility] Appointment Type: Open Appointment Date:01/26/2022 02:45:00 PM Scheduled Provider:Adela MEZA MD Location:[facility] Appointment Type:BADH New Patient [facility] Evaluation + Plan note Future Appointments Appointment Date:03/22/2022 02:00:00 PM Scheduled Provider: Location:[facility] Appointment Type:Surgery PAT COVID Testing Appointment Date:03/29/2022 02:00:00 PM Scheduled Provider: Location:[facility] Appointment Type:Surgery FT Appointment Date:04/13/2022 04:20:00 PM Scheduled Provider:Bi BELL DO Location:[facility] Appointment Type: Open Future Scheduled TestsPancreatic Elastase, Fecal 02/16/22Fecal WBC Lactoferrin 02/16/22O & P Exam, Routine 02/16/22Celiac Disease Comprehensive 02/16/22Enteric Panel by PCR 02/16/22Calcium Level Total 02/16/22CBC w/ Indices 02/16/22Comprehensive Metabolic Panel 02/16/22Thyroid Stimulating Hormone 02/16/22 [facility] Evaluation + Plan note Future Appointments Appointment Date:03/22/2022 02:00:00 PM Scheduled Provider: Location:[facility] Appointment Type:Surgery PAT COVID Testing Appointment Date:03/29/2022 02:00:00 PM Scheduled Provider: Location:[facility] Appointment Type:Surgery FT Appointment Date:04/13/2022 04:20:00 PM Scheduled Provider:Bi BELL DO Location:[facility] Appointment Type: Open Diagnostic Tests PendingCeliac Disease Comprehensive 03/03/22 [facility] Evaluation + Plan note Future Appointments Appointment Date:03/22/2022 02:00:00 PM Scheduled Provider: Location:[facility] Appointment Type:Surgery PAT COVID Testing Appointment Date:03/29/2022 02:00:00 PM Scheduled Provider: Location:[facility] Appointment Type:Surgery FT Appointment Date:04/13/2022 04:20:00 PM Scheduled Provider:Bi BELL DO Location:[facility] Appointment Type: Open Diagnostic Tests PendingO & P Exam, Routine 03/03/22Enteric Panel by PCR 03/03/22Pancreatic Elastase, Fecal 03/03/22 [facility] Evaluation + Plan note Future Appointments Appointment Date:03/29/2022 01:50:00 PM Scheduled Provider: Location:[facility] Appointment Type:Surgery FT Appointment Date:04/13/2022 04:20:00 PM Scheduled Provider:Bi BELL DO Location:[facility] Appointment Type:[facility] Evaluation + Plan note Future Appointments Appointment Date:05/09/2022 08:20:00 AM Scheduled Provider:Trupti Marques CNP Location:[facility] Appointment Type:BADH Follow Up Appointment Date:07/13/2022 09:00:00 AM Scheduled Provider:Bi BELL DO Location:[facility] Appointment Type:[facility] Evaluation + Plan note Future Appointments Appointment Date:07/13/2022 09:00:00 AM Scheduled Provider:Bi BELL DO Location:[facility] Appointment Type:[facility] Evaluation + Plan note Future Appointments Appointment Date:08/15/2022 09:30:00 AM Scheduled Provider: [facility] Type:US Abdominal/Pelvis (FT) Appointment Date:08/31/2022 09:00:00 AM Scheduled Provider: Location:[facility] Appointment Type:Surgery FT Appointment Date:10/20/2022 10:20:00 AM Scheduled Provider:Trupti Marques CNP Location:[facility] Appointment Type:[facility] Follow Up Future Scheduled TestsUS Abdomen Complete 08/15/22 [facility] Evaluation + Plan note Future Appointments Appointment Date:08/21/2022 12:00:00 PM Scheduled Provider: Location:.MRI Appointment Type:MRI Knee/Tibia/Fibula (FT) Appointment Date:08/31/2022 09:00:00 AM Scheduled Provider: Location:[facility] Appointment Type:Surgery FT Appointment Date:10/20/2022 10:20:00 AM Scheduled Provider:Trupti Marques CNP Location:[facility] Digestive [facility] Appointment Type:[facility] Follow Up Future Scheduled TestsMRI Knee w/o Contrast Right 08/21/22 [facility] Evaluation + Plan note Future Appointments Appointment Date:08/31/2022 09:00:00 AM Scheduled Provider: Location:[facility] Appointment Type:Surgery FT Appointment Date:10/20/2022 10:20:00 AM Scheduled Provider:Trupti Marques CNP Location:[facility] Appointment Type:[facility] Follow Up [facility] Evaluation + Plan note Future Appointments Appointment Date:09/14/2022 08:00:00 AM Scheduled Provider: Location:[facility] Appointment Type:Surgery FT Appointment Date:10/20/2022 10:20:00 AM Scheduled Provider:Trupti Marques CNP Location:[facility] Digestive [facility] Appointment Type:[facility] Follow Up [facility] Evaluation + Plan note Future Appointments Appointment Date:10/20/2022 10:20:00 AM Scheduled Provider:Trupti Marques CNP Location:[facility] Appointment Type:[facility] Follow Up [facility] Evaluation + Plan note Future Appointments Appointment Date:11/01/2022 09:30:00 AM Scheduled Provider: Location:[facility] Appointment Type:Surgery FT Appointment Date:11/17/2022 10:20:00 AM Scheduled Provider:Trupti Marques CNP Location:[facility] Appointment Type:BAD Follow Up [facility] Evaluation + Plan note Future Appointments Appointment Date:12/21/2022 02:30:00 PM Scheduled Provider:Adela MEZA MD Location:[facility] Appointment Type:[facility] Follow Up Future Scheduled TestsCBC w/ Auto Diff 11/16/22 [facility] Evaluation + Plan note Future Appointments Appointment Date:11/29/2022 02:00:00 PM Scheduled Provider:Bi BELL DO Location:[facility] Appointment Type: Open Appointment Date:12/06/2022 08:15:00 PM Scheduled Provider: Location:.SLEEP LAB_ Appointment Type:[employer] Sleep Study PSG () Future Scheduled TestsCalprotectin, Fecal 11/23/22 [facility] Evaluation + Plan note Future Appointments Appointment Date:12/26/2022 04:00:00 PM Scheduled Provider:Bi BELL DO Location:[facility] Appointment Type: Open [facility] Evaluation note No assessment inform ation available [facility] Work Phone: Evaluation note Diagnosis Tachycardia- Primary Unspecified tachycardia Atrial fibrillation, unspecified type (CMS/HCC) Heart murmur Undiagnosed cardiac murmurs documented in this encounter [facility] Work Phone: Hospital course Narrative No data available for this section [facility] Hospital Discharge instructions No data available for this section [facility] Progress note No data available for this section [facility] Family History No Family History Records FoundUnknown Family Member Name Dates Details Family history of migraine h eadaches: Mother(V17.2, Z82.0) Status:Active No pertinent family history: Father(V49.89, Z78.9) Status:Active Family history of diabetes m ellitus: Brother(V18.0, Z83.3) Status:Active Unknown Family Member Name Dates Details Family history of migraine h eadaches: Mother(V17.2, Z82.0) Status:Active No pertinent family history: Father(V49.89, Z78.9) Status:Active Family history of diabetes m ellitus: Brother(V18.0, Z83.3) Status:Active Unknown Family Member Name Dates Details Family history of diabetes m ellitus: Brother(V18.0, Z83.3) Status:Active No pertinent family history: Father(V49.89, Z78.9) Status:Active Family history of migraine h eadaches: Mother(V17.2, Z82.0) Status:Active Unknown Family Member Name Dates Details Family history of migraine h eadaches: Mother(V17.2, Z82.0) Status:Active No pertinent family history: Father(V49.89, Z78.9) Status:Active Family history of diabetes m ellitus: Brother(V18.0, Z83.3) Status:Active Unknown Family Member Name Dates Details Family history of migraine h eadaches: Mother(V17.2, Z82.0) Status:Active No pertinent family history: Father(V49.89, Z78.9) Status:Active Family history of diabetes m ellitus: Brother(V18.0, Z83.3) Status:Active Unknown Family Member Name Dates Details Family history of migraine h eadaches: Mother(V17.2, Z82.0) Status:Active No pertinent family history: Father(V49.89, Z78.9) Status:Active Family history of diabetes m ellitus: Brother(V18.0, Z83.3) Status:Active Summary Purpose Advance Directives No Advanced Directives Records Found Advance Directive Response Recorded Date/ Time Advance Directives No January 29 2:25pm Chief Complaint and Reason for Visit Chief Complaint r07.89 r53.83 r00.2 r00.0 r06.02 r55 Chief Complaint CINDY SYLVESTER is being seen for results. Additional Source Comments Care Team (unrecognized sect ion and content) Nickel Plater Relationship Specialty Start Date End Date Trupti Marques, [address] [place] [address] PCP - General Family Medicine 10/25/22 Team Status: Active Member Role Status Dates Bi Bell , Primary Care Provider Active Team Status: Inactive Member Role Status Dates Bi Bell DO Primary Care Provider Active Cesilia Jeter MD Attending Provider Active Minnie Vásquez MD Referring Provider Active Nickel Plater Relationship Specialty Start Date End Date Bi Bell DO [address] [place] [id number] PCP - General 12/14/22 Source Comments (unrecognize d section and content) In the event this informatio n is protected by the Federal Confidentiality of Alcohol and Drug Abuse Patient Records regulations: The Federal rules restrict any use of the information to criminally investigate or prosecute any alcohol or drug abuse patient.[facility] Reason for Visit (unrecogniz ed section and content) Reason Comments Follow-up Stress test results Specialty Diagnoses / Procedures Referred By Contac t Referred To Contact Cardiology Diagnoses Atrial fibrillation, unspecified type (CMS/HCC) Heart murmur Procedures Follow Up In Cardiology Cesilia Jeter MD [address] [facility] [address] [place] [address] Orin Barragan, DEVELOPMENT EDUCATOR-SENIOR MANAGER [address] [facility] [address] [place] [address] Referral ID Status Reason Start Date Expiration Date V isits Requested Visits Authorized [id number] Authorized 05/09/2023 05/08/2024 1 1 (unrecognized sect ion and content) No Status Records FoundNo Status Records FoundNo Status Records FoundNo Status Records FoundNo Status Records FoundNo Status Records FoundNo Status Records Found INFORMATION SOURCE (unrecogn ized section and content) DATE CREATED AUTHOR 02/05/2023 [facility] DATE CREATED AUTHOR AUTHOR'S ORGANIZ ATION 02/26/2023 [facility] DATE CREATED AUTHOR AUTHOR'S ORGANIZ ATION 04/07/2023 [facility] DATE CREATED AUTHOR AUTHOR'S ORGANIZ ATION 04/07/2023 [facility] DATE CREATED AUTHOR AUTHOR'S ORGANIZ ATION 05/06/2023 [facility] DATE CREATED AUTHOR AUTHOR'S ORGANIZ ATION 05/30/2023 [facility] DATE CREATED AUTHOR AUTHOR'S ORGANIZ ATION 06/12/2023 [facility] Goals (unrecognized section and content) Goals may be documented in a n alternate section FOR RECORDS PERTAINING TO PATIENTS WHO ARE OR HAVE BEEN ENROLLED IN A CHEMICAL DEPENDENCY/SUBSTANCEABUSE PROGRAM, SOME INFORMATION MAY BE OMITTED. This clinical summary was aggregated from multiple sources. Caution should be exercised in using it in the provision of clinical care. This summary normalizes information from multiple sources, and as a consequence, information in this document may materially change the coding, format and clinical context of patient data. In addition, data may be omitted in some cases. CLINICAL DECISIONS SHOULD BE BASED ON THE PRIMARY CLINICAL RECORDS. [employer] provides no warranty or guarantee of the accuracy or completeness of information in this document.
--- NOTE | 2023-08-16 13:40 | P.CN_ITS ---
Consult Note: HPI Data of Consult Patient: new to practice Consult date: 05/21/23 Requesting Physician: Ewa Gan NP Primary Care Provider: BI BELL Consult Narrative Reason for consult: low back, bilateral lower extremity pain, midback pain Narrative: 27yom who presents for evaluation. worsening midback, low back pain with radiation into bilateral lower extremities. ongoing for several years. denies traumatic inciting event. lumbar imaging reviewed, which is significant for disc bulging and resultant stenosis at l4-5 and l5-s1. has engaged in provider directed course of home exercises >3x/week >6 weeks and now 17 visits of PT, with minimal benefit. uses tylenol on occasion, but does not like medication. cc:: CC: Ewa Gan NP Review of Systems ROS Status of ROS 10 or more systems reviewed and unremark able except as noted in history and below Musculoskeletal Reports: back pain and joint pain Meds Home Medications and Allergies Home Medications Medication Instructions Recorded Confirmed Type Lactobacillus acidophilus 10 mg PO DAILY 05/24/23 05/24/23 History (Acidophilus capsule) cholecalciferol (vitamin D3) 50 2,000 unit PO DAILY 05/24/23 05/24/23 History mcg (2,000 unit) capsule cyanocobalamin (vitamin B-12) 1,000 mcg PO DAILY 05/24/23 05/24/23 History 1,000 mcg capsule famotidine 40 mg tablet 40 mg PO DAILY 05/24/23 05/24/23 History losartan 25 mg tablet 25 mg PO DAILY 05/24/23 05/24/23 History modafinil 200 mg tablet 200 mg PO DAILY 05/24/23 05/24/23 History naltrexone 1.5 mg capsule 3 mg PO BEDTIME 05/24/23 05/24/23 History (Lotrexone) pantoprazole 40 mg tablet,delayed 40 mg PO DAILY 05/24/23 05/24/23 History release pregabalin 50 mg capsule (Lyrica) 50 mg PO BID 05/24/23 05/24/23 History rimegepant 75 mg disintegrating 75 mg PO DAILY PRN migraine 05/24/23 05/24/23 History tablet (Nurtec ODT) headache Exam Narrative Exam Narrative: Psych-alert and oriented x 3. Attentive and appropriate, constitutionally normal, displays normal mood and affect per situation. There are no obvious deficits in memory, reasoning, or intellect.? Skin-no obvious rashes, bruising, erythema noted to the patient's area of pain.? Extremities- extremities are warm with minimal edema and palpable pulses. Lumbar-tenderness to palpation noted in the lumbar spine and paraspinal musculature. Pain is elicited with flexion, extension, and lateral rotation of the lumbar spine. Range of motion is diminished with these motions. Facet loading maneuvers are positive.? pain in left PSIS, positive thigh thrust fabers and gaenslens Strength-noted to be unremarkable with the exception of decreased strength rated at 4 out of 5 in bilateral quadriceps femoris, anterior tibialis. Sensory-no notable sensory deficits in the bilateral lower extremities to touch or pinprick in all dermatomal distributions with the exception to decreased sensation to the bilateral L4, 5 dermatomal distribution? Coordination remains intact.? Gait remains non-antalgic. Assessment and Plan Assessment and Plan (1) Lumbar stenosis with neurogenic claudication: (2) Inflammation of left sacroiliac joint: Plan bilateral L4 TFESI followed by bilateral L5 TFESI 2 weeks apart, if continues to have moderate to severe left SIJ pain we will do a left SIJ injection. risks vs benefits discussed continue HEP as tolerated, however patient severely limited at this time. SHUKRI 67% thoracic xray reviewed with pt continue current medications f/u 2 weeks after STEPHANIE
== END 2023-08-16 13:19 | disposition home or self-care (01) ==
LOC: PM 13:19
PROVIDERS: PCP Family Medicine; Visit Provider Nurse Practitioner
DX: M48.062 Spinal stenosis, lumbar region with neurogenic claudication (principal); M53.3 Sacrococcygeal disorders, not elsewhere classified
CPT/HCPCS: G0463

== ENCOUNTER 2023-08-26 12:58 | Emergency (ER) | payer OTHER, SELFPAY ==
[2023-08-26 13:04] VITALS: BP 133/83; PULSE 118; RESP 18; TEMP 36.5; O2SAT 98; BMI 32.1
--- OUTSIDE RECORDS SUMMARY | 2023-08-26 13:06 | XMS_ITS | CCD ---
Author Name Unknown Address [address] [place] [address] Organization [facility] Care Team Providers Care Hvac R Instructor Name Role Phone Bi BELL Primary Care Physician [phone] Trupti Marques CNP Primary Care Provider Bi Bell Unavailable Unavailable Unavailable Dr. Bi Bell Primary Care CESILIA Keller Referring Unavailable CESILIA JETER Attending Unavailable Bi BELL Primary Care Physician DO Bi Bell Primary Care Provider MD Cesilia Jeter Attending Provider [phone] MD Minnie Vásquez Referring Provider Cesilia Jeter [...] Navarrete Referring Unavailable Tarik Sheehan Admitting Unavailable [place], Tarik Martin Attending Unavailable [place], Tarik Martin Referring Unavailable Shelli, Trupti A Referring Unavailable Shelli, Trupti A Admitting Unavailable Shelli, Trupti Navarrete Attending Unavailable SALAM, Adela Admitting Unavailable SALAM, Adela Attending Unavailable CARIDADMARIELOS J Admitting Unavailable CARIDAD, MARIELOS J Attending Unavailable Allergies Allergy Classification Reported Allergen(s) Allergy Type Date of Onset Reaction(s) Facility (20 sources) Cyproheptadine; Translations: [cyproheptadine ] Drug Allergy 4 Drowsy (finding), Drowsiness, Other, Unknown [facility] (8 sources) Cephalexin; Translations: [Cephalexin TABS] Drug Allergy 3 Unknown [facility] (2 sources) Cephalexin; Translations: [CEPHALEXIN] Drug Allergy 3 [facility] Repository (1 source) ALLERGIES NOT ON FILE; Translations: [ALLERGIES NOT ON FILE] Propensity to adverse reactions (disorder) [facility] [place] Repository (2 sources) Acebutolol; Translations: [ACEBUTOLOL] Drug Allergy 3 Cough [facility] 3 Repository Medications Current Medications Medication Drug [...] for 7 day(s), 14 tab(s), Refill(s) 0, [facility], 193, cm, 02/07/23 21:30:00 EDT, Height/Length [...] day(s), # 20 tab(s), Refills(s) 0, Pharmacy: [facility], 193, cm, 11/23/22 13:52:00 EDT, Height/Length Dosing, 109, kg, 11/23/22 13:52:00 EDT, Weight Dosing Start Date: 11/23/22 Stop Date: 12/03/22 Status: Ordered clobetasol propionate 0.5 mg/ml topical foam (19 sources) Corticosteroid Start: 01-05-2023 Olux 0.05% topical foam 1 anum, Topical, BID, 100 gram, Refill(s) 1, [facility], 193, cm, 12/26/22 16:03:00 EDT, Height/Length Dosing, 112.1, kg, 12/26/22 16:03:00 EDT, Weight Dosing Start Date: 01/05/23 Status: Ordered Start: 10-12-2022 Olux 0.05% top ical foam 1 anum, Topical, BID, 100 gram, Refill(s) 1, [facility], 193, cm, 08/09/22 16:56:00 EST, Height/Length Dosing, 115.2, kg, 08/09/22 16:56:00 EST, Weight Dosing Start Date: 10/12/22 Status: Ordered Start: 06-19-2022 Olux 0.05% top ical foam 1 anum, Topical, BID, 100 gram, Refill(s) 1, [facility], 193, cm, 04/13/22 16:11:00 EDT, Height/Length Dosing, 118, kg, 04/13/22 16:11:00 EDT, Weight Dosing Start Date: 06/19/22 Status: Ordered Start: 11-25-2021 Olux 0.05% top ical foam 1 anum, Topical, BID, 100 gram, Refill(s) 1, [facility], 193, cm, 10/06/21 15:13:00 EDT, [...] day(s), # 28 tab(s), Refills(s) 0, Pharmacy: [facility], 193, cm, 08/09/22 16:56:00 EST, Height/Length [...] Daily, # 90 cap(s), Refills(s) 1, Pharmacy: [facility], 193, cm, 11/29/22 13:54:00 EDT, Height/Length [...] completed) Start: 03-27-2022 take 1 capsule by [facility] once daily DULoxetine 30 mg Cap-EC TAKE [...] itching, # 40 tab(s), Refills(s) 0, Pharmacy: [facility] 193, cm, 01/10/22 15:41:00 EDT, Height/Length Dosing, 115.8, kg, 01/10/22 15:41:00 EDT, Weight Dosing Start Date: 01/10/22 Status: Ordered LDN 1.5 mg (1 source) Start: 11-30-19 LDN 1.5 mg LDN 1.5 mg, See Instructions, 30 cap(s), 0, 1 cap po at HS, [employer], Compound, 193, cm, 11/29/22 13:54:00 EDT, Height/Length Dosing, 111.5, kg, 11/29/22 13:54:00 EDT, Weight Dosing Start Date: 11/29/22 Status: Ordered LDN 3 mg (1 source) Start: 12-27-19 LDN 3 mg LDN 3 mg, See Instructions, 30 cap(s), 2, 1 cap po at HS, [employer], Compound, 193, cm, 12/26/22 16:03:00 EDT, Height/Length [...] day(s), # 30 tab(s), Refills(s) 2, Pharmacy: [facility], 193, cm, 11/29/22 13:54:00 EDT, Height/Length [...] qAM, # 30 tab(s), Refills(s) 2, Pharmacy: [facility], 193, cm, 12/26/22 16:03:00 EDT, Height/Length Dosing, 112.1, kg, 12/26/22 16:03:00 EDT, Weight Dosing Start Date: 12/26/22 Status: Ordered Comment on above: Take 200 mg by mouth once daily. Olux 0.05% topical foam (4 sources) Start: 11-26-19 Olux 0.05% topical foam 1 anum, Topical, BID, 100 gram, Refill(s) 1, [facility], 193, cm, 10/06/21 15:13:00 EDT, Height/Length Dosing, 111.7, kg, 10/06/21 15:13:00 EDT, Weight Dosing Start Date: 11/25/21 Status: Ordered Start: 08-16-2021 Olux 0.05% top ical foam 1 anum, Topical, BID, 100 gram, Refill(s) 0, [facility], 193, cm, 06/02/21 16:01:00 EST, Height/Length Dosing, 105.4, kg, 06/02/21 16:01:00 EST, Weight Dosing Start Date: 08/16/21 Status: Ordered ondansetron 4 mg disintegrating oral tablet (15 sources) Serotonin-3 Receptor Antagonist Start: 08-09-2022 End: 05-28-2023 take 1 tablet by mouth every six hours ondansetron 4 mg Dis Tab 4 mg = 1 tab(s), Oral, q6hr, # 12 tab(s), Refills(s) 0, Pharmacy: [facility], 193, cm, 08/09/22 16:56:00 EST, Height/Length [...] Daily, # 90 tab(s), Refills(s) 1, Pharmacy: [facility], 193, cm, 04/13/22 16:11:00 EDT, Height/Length Dosing, 118, kg, 04/13/22 16:11:00 EDT, Weight Dosing Start Date: 05/26/22 Status: Ordered Start: 01-13-2022 End: 05-28-2023 take 1 tablet by mouth once daily pantoprazole 40 mg Oral EC Tab 40 mg = 1 tab(s), Oral, Daily, # 90 tab(s), Refills(s) 1, Pharmacy: [facility], 193, cm, 01/10/22 15:41:00 EDT, Height/Length Dosing, 115.8, kg, 01/10/22 15:41:00 EDT, Weight Dosing Start Date: 01/13/22 Status: Ordered Start: 06-02-2021 take 1 tablet by [facility] once daily pantoprazole 40 mg Oral EC Tab 40 mg = 1 tab(s), Oral, Daily, # 90 tab(s), Refills(s) 1, Pharmacy: [facility], 193, cm, 06/02/21 16:01:00 EST, Height/Length [...] days., # 45 tab(s), Refills(s) 0, Pharmacy: [facility], 193, cm, 03/27/22 11:22:00 EDT, Height/Lengt... Start Date: 03/27/22 Status: Ordered Start: 01-10-2022 predniSONE 10 mg Tab 0 = 1 -, Oral, As Directed, Take 5 tabs by mouth daily x3 days, 4 daily x3 days, 3 daily x3 days, 2 daily x3 days, then 1 tab daily x3 days., # 45 tab(s), Refills(s) 0, Pharmacy: [facility], 193, cm, 01/10/22 15:41:00 EDT, Height/Lengt... [...] Bedtime, # 30 tab(s), Refills(s) 0, Pharmacy: [facility], 193, cm, 11/29/21 15:48:00 EDT, Height/Length [...] Comment on above: Take 1,000 mcg by [facility] once daily. Vitamin D (13 sources) Start: [...] tab, Oral, BID, 60 tab(s), 1, [facility], 193, cm, 11/09/20 16:16:00 EDT, [...] completed) Start: 09-01-2021 take 1 capsule by [facility] twice daily pregabalin 100 mg Cap TAKE [...] 06-11-2023 Auth for Release of Medical Records [id number]# 1.00TIFF Normal [facility] STRESS TEST ONLYon 3 STRESS TEST ONLY [facility] [address], [place] [address] Exercise Stress Test Patient Name: CINDY SYLVESTER Ordering Provider: [id number] CESILIA JETER Study Date: 05/01/2023 Reading Physician: [id number] Dianna Holloway MD, [facility] MRN/PID: [id number] Supervising Physician: [id number] Rex Gaffney DO Fellow: Date of /Age: 3 1995 / years Fellow: Gender: M Nurse: Kurt Urias RN Admission Status: Sample Sewer: ANITA Height: 193.04 cm Technologist: Weight: 107.50 kg Additional Staff: BSA: 2.38 m2 BMI: 28.85 kg/m2 Patient Location: Study Type: STRESS TEST ONLY Diagnosis/ICD: Palpitations-R00.2; Syncope and collapse-R55 Indication: Hypertension CPT Codes: Stress Test Interpretation-76531 ; Stress Test Supervision-06463 Falls Risk: Low: Patient has low risk [...] Patient achieved Wright treadmill score of 5+. 35515 Dianna Holloway MD, FACC Electronically signed on 05/01/2023 at 3:56:52 PM Final [facility] Consultation Noteon 04-24-20 23 Consultation Note [id number] #1.00TIFF [facility] Office Visit (Cardiology)on 04-05-2023 Follow-up visit Diagnoses/Problems [...] Weight Tips; Status:Complete - Retrospective Authorization; Done: [id number] Some eating tips that can help you lose weight.; Status:Complete - Retrospective Authorization; Done: [id number] Palpitations, Syncope and collapse Cardiac Stress Test; [...] MG O (more content not included)... Normal [facility] Tobacco Screening.on 023 Tobacco use status [facility]PH[facility] b) No -[facility] [address] DO Work Phone: [place] tilt table teston 023 CA tilt table test [facility] Main [place] [address] [place] [address] Cardiology Report Signed Patient: Cindy Sylvester MR#: [id number] : 1995 Acct:[id number] Age/Sex: 27 / M ADM Date: 02/15/23 Loc: Room: Type: [facility] Attending Dr: Cesilia Jeter MD Copies to: [...] continue his long-term followup with his primary lean manufacturing specialist. Transcribed By: MARLEY 02/15/231702 Dictated By: Minnie Vásquez MD 02/15/23 1115 Signed By: 02/15/23 1754 [facility] No Panel Informationon 02-15 [facility] [address] DO Work Phone: Consultation Noteon 02-14-20 Consultation Note [id number] #1.00CD:127 [facility] ED Note-Physicianon 02-10-20 ED Note-Physician Basic Information [...] and Complexity of Problems Differential Diagnosis: [] [facility] Data External documents reviewed: [] My EKG [...] for 7 day(s), 14 tab(s), Refill(s) 0, [facility], 193, cm, 02/07/23 21:30:00 EDT, Height/Length [...] BELL In 3 days 02/10/2023 EDT [address] [facility] [address] [facility] [place] [address] [phone] Business (1) Additional Instructions: Follow-up with your primary care provider in 3 to 5 days. If symptoms worsen, do not improve, or new symptoms arise please report back (more content not included)... Normal [facility] Comment on above: Result Comment: Elec tronically Signed By: Inocencio Yousif PA-C\.br\Date and Time Signed: 02/07/23 23:22 EDT\.br\Electronically Co-Signed By: Ghulam Masterson MD\.br\Date and Time Co-Signed: 02/08/23 23:11 EDT Auth for Release of Medical Recordson 02-08-2023 Auth for Release of Medical Records [id number] #1.00CD:127 [facility] Discharge Instructionson Discharge Instructions [id number] #1.00CD:127 [facility] ED Clinical Summaryon 2022 ED Clinical Summary [place] [address] ED Clinical Summary Person Information Name: TIGRE, CINDY Martin Nayla/[facility] Age: 27 Years : 1995 Sex: Male Language: Fijian PCP: Bi BELL DO Marital Status: Single [...] 02/07/2023 22:12:55 02/07/2023 22:12:55 02/07/2023 22:12:55 ADDRESS: [address] [place] [address] [place] [phone] PHYS DOC NOTES: MEDICAL INFORMATION: Prescriptions Given: New Medications [facility], [address], [place] [id number], [phone] amoxicillin-clavulan ate (Augmentin 875 mg-125 mg Tab) [...] Follow up: With: Address: When: Bi BELL [address] [facility], [facility] [place] [phone] Business (1) In 3 days 02/10/2023 Comments: Follow-up with your primary care provider in 3 to 5 days. If symptoms worsen, do not improve, or new symptoms arise please report back to emergency department for further evaluation. DIAGNOSIS: Pain, dental Normal [facility] ED Patient Education Noteon 02-08-2023 [...] after getting dental care. Medicines ? Take ttdk-qwz-tztpzxa and prescription medicines only as told by [...] may be mild or severe. ? Take wjsl-awm-iquhifp and prescription medicines only as told by [...] Reviewed: 04/06/2021 Elsevier Patient Education ? 2022 [employer] Normal [facility] ED Patient Summaryon 023 ED Patient Summary [address] [address] Patient Discharge Instructions Person Information Name: CINDY SYLVESTER Age: 27 Years Arrival Date: 02/07/2023 21:23:01 Discharge Diagnosis: Pain, dental Primary Care Physician: Bi BELL DO Provider Information Primary Provider: Advanced Deck Builder:None The exam and treatment you received in the Emergency Department were for an urgent problem and are not intended as complete care. It is important that you follow up with a doctor, nurse practitioner, or physician?s assistant restaurant general manager for ongoing care. If your symptoms become worse or you do not improve as expected and you are unable to reach your usual health care provider, you should return to the Emergency Department. We are available 24 hours a day. CINDY SYLVESTER has been given the following list of patient education materials, prescriptions and follow-up instructions: Follow-up Instructions: With: Address: When: Bi BLEL [address] [facility] [place] [phone] Business (1) In 3 days 02/10/2023 Comments: [...] opioids can be used to help relieve lsparowt-wh-szxcnj pain and are often prescribed following a [...] believe you m (more content not included)... [facility] Consent for Treatmenton 01-14 Consent for Treatment [id number] #1.00CD:127 [facility] Physician Referralon 023 Physician Referral [id number] #1.00CD:127 Normal [facility] Physician Referralon 023 Physician Referral [id number] #1.00CD:127 Normal [facility] CBC w/Indiceson 01-15-2023 Erythrocyte distribution width (RBC) [Ratio] 12.7 % Normal 10.9-14.2 [facility] Comment on above: Performed By: #### 2 553269, 4261209, 2172773, 81407558, 9032735 #### [facility] [address] [place] [address] Hematocrit (Bld) [Volume fraction] 45.0 % Normal 37.7-49.0 [facility] Comment on above: Performed By: #### 2 520597, 8221701, 2694037, 93648275, 9541242 #### [facility] [address] [place] [address] Hemoglobin (Bld) [Mass/Vol] 15.9 g/dL Normal 13.5-17.5 [facility] Comment on above: Performed By: #### 2 094072, 7055614, 1378861, 87220447, 9870531 #### [facility] [address] [place] [address] MCH (RBC) [Entitic mass] 30.6 pg Normal 27.0-34.0 [facility] Comment on above: Performed By: #### 2 381468, 4942630, 6654051, 22129660, 6210968 #### [facility] [address] [place] [address] MCHC (RBC) [Mass/Vol] 35.2 g/dL Normal 31.4-36.0 [facility] Comment on above: Performed By: #### 2 276821, 7659394, 7088310, 66021411, 1059946 #### [facility] [address] [place] [address] MCV (RBC) [Entitic vol] 87.0 fL Normal 80.0-100.0 [facility] Comment on above: Performed By: #### 2 283510, 8752069, 5695668, 00608715, 5045843 #### [facility] [address] [place] [address] Platelet mean volume (Bld) [Entitic vol] 7.5 fL Normal 6.4-10.8 [facility] Comment on above: Performed By: #### 2 722152, 3505922, 2333683, 55275392, 5408021 #### [facility] [address] [place] [address] Platelets (Bld) [#/Vol] 299.0 E9/L Normal 150.0-500.0 [facility] Comment on above: Performed By: #### 2 344436, 9999050, 5889112, 67558559, 4294200 #### [facility] [address] [place], [place] [address] RBC (Bld) [#/Vol] 5.2 E12/L Normal 4.3-5.9 [facility] Comment on above: Performed By: #### 2 981969, 6522187, 1915871, 23052909, 7259054 #### [facility] [address] [place] [address] WBC corrected for nucl RBC Auto (Bld) [#/Vol] 6.2 E9/L Normal 4.0-11.0 [facility] Comment on above: Performed By: #### 2 072072, 1990581, 6693063, 21897327, 9373588 #### [facility] [address] [place] [address] CMPon 01-15-2023 Albumin [Mass/Vol] 4.6 g/dL Normal 3.3-5.0 [facility] Comment on above: Performed By: #### 2 445246, 7290616, 6824839, 95430164, 1303393 #### [facility] [address] [place] [address] Albumin/Globulin (S) [Mass conc ratio] 1.6 Normal 1.1-2.2 [facility] Comment on above: Performed By: #### 2 464528, 5438494, 2968061, 63766320, 1683783 #### [facility] [address] [place] [address] ALP [Catalytic activity/Vol] 97 Int._Unit/L Normal 21-98 [facility] Comment on above: Performed By: #### 2 505250, 4043371, 7454170, 25784356, 8698257 #### [facility] [address] [place] [address] ALT No additional P-5'-P [Catalytic activity/Vol] 27 Int._Unit/L Normal 6-46 [facility] Comment on above: Performed By: #### 2 124785, 0369015, 5638051, 84866147, 0423525 #### [facility] [address] [place] [address] Anion gap [Moles/Vol] 13 mmol/L Normal 6-16 [facility] Comment on above: Performed By: #### 2 580710, 9342742, 8309270, 76883648, 8689464 #### [facility] [address] [place] [address] AST [Catalytic activity/Vol] 21 Int._Unit/L Normal 5-43 [facility] Comment on above: Performed By: #### 2 887766, 3222662, 7755770, 37826954, 1334528 #### [facility] [address] [place] [address] Bilirubin [Mass/Vol] 0.7 mg/dL Normal 0.0-1.1 [facility] Comment on above: Performed By: #### 2 509697, 7932107, 5205372, 10496109, 5966199 #### [facility] [address] [place] [address] Calcium [Mass/Vol] 9.6 mg/dL Normal 8.9-11.1 [facility] Comment on above: Performed By: #### 2 859982, 1581742, 6392307, 98023829, 9051991 #### [facility] [address] [place] [address] Chloride [Moles/Vol] 103 mmol/L Normal 101-111 [facility] Comment on above: Performed By: #### 2 503605, 4194755, 3211483, 18504487, 7172028 #### [facility] [address] [place] [address] CO2 [Moles/Vol] 27 mmol/L Normal 21-31 [facility] Comment on above: Performed By: #### 2 379969, 0255540, 8489341, 27691356, 0911111 #### [facility] [address] [place] [address] Creatinine [Mass/Vol] 0.9 mg/dL Normal 0.5-1.3 [facility] Comment on above: Performed By: #### 2 033726, 3721828, 0571527, 23208072, 5255159 #### [facility] [address] [place] [address] Globulin (S) [Mass/Vol] 2.9 g/dL Normal 1.4-4.0 [facility] Comment on above: Performed By: #### 2 442630, 2473608, 6115382, 77338460, 0105193 #### [facility] [address] [place] [address] Glucose [Mass/Vol] 100 mg/dL Normal 55-199 [facility] Comment on above: Result Comment: If t his glucose result represents a fasting glucose, interpretation should refer to the following reference range: 55-99 mg/dL Performed By: #### 2 406659, 9723707, 9572863, 50077073, 9736549 #### [facility] [address] [place] [address] Potassium [Moles/Vol] 4.3 mmol/L Normal 3.5-5.3 [facility] Comment on above: Performed By: #### 2 632091, 1725599, 4525648, 89254095, 3019415 #### [facility] [address] [place] [address] Protein [Mass/Vol] 7.5 g/dL Normal 6.0-7.8 [facility] Comment on above: Performed By: #### 2 095277, 2370262, 7240013, 13017785, 7028846 #### [facility] [address] [place] [address] Sodium [Moles/Vol] 139 mmol/L Normal 135-145 [facility] Comment on above: Performed By: #### 2 187668, 3126877, 9844558, 20055737, 2755586 #### [facility] [address] [place] [address] Urea nitrogen [Mass/Vol] 11 mg/dL Normal 5-21 [facility] Comment on above: Performed By: #### 2 357467, 4772268, 3790653, 32660077, 0613400 #### [facility] [address] [place] [address] Urea nitrogen/Creatinine [Mass ratio] 12 No Units Normal 10-20 [facility] Comment on above: Performed By: #### 2 831893, 8622067, 1275196, 09291176, 6060498 #### [facility] [address] [place] [address] Consent for Treatmenton Consent for Treatment [id number] #1.00CD:127 Normal [facility] Physician Orderon 01-15-2023 Physician Order [id number]# 1.00CD:127 Normal [facility] TSHon 01-15-2023 TSH Qn 1.42 m[IU]/L Normal 0.34-5.60 [facility] Comment on above: Performed By: #### 2 713741, 6214970, 4381024, 49767298, 4668446 #### [facility] [address] [place] [address] Vit B12on 01-15-2023 Cobalamin (Vitamin B12) [Mass/Vol] 600 pg/mL Normal 50-1500 [facility] Comment on above: Performed By: #### 2 127177, 5457737, 6827575, 95175581, 5615131 #### [facility] [address] [place] [address] eGFRon 01-15-2023 GFR/1.73 sq M.predicted among non-blacks MDRD (S/P/Bld) [Vol rate/Area] 120 mL/min/1.73 m2 Normal >=59 [facility] Comment on above: Order Comment: Order added by Discern Expert. Result Comment: Computing Architect mayra kidney disease could be indicated at eGFR's of less than 60 mL/min/1.73m2. Kidney failure is indicated at less than 15 mL/min/1.73m2. Performed By: #### 2 460820, 2866927, 4324395, 53422654, 4868401 #### [facility] [address] [place] [address] Holter Monitoron 01-08-2023 Holter Monitor [id number]# 1.00CD:127 Normal [facility] Pulmonary Function Studieson 01-01-2023 Pulmonary [...] BY: Angela Roberts M.D. lr Dictated: 12/26/2022 [id number] Transcribed: 12/27/2022 cc:Bi Bell D.O. Normal [facility] Comment on above: Result Comment: [...] to be returned on: 12/28/2022 Monitor number [id number] applied. Procedure Holter monitor returned without diary [...] [facility] [address] 02/22/2023 10:15 Cesilia Knight, [id number] DO Signatures Electronically signed by : Cesilia Jeter MD; Jan 07 2023 12:43PM EST (Author) Normal [facility] Office/Clini c Noteon 12-26-2022 Family [...] wearing a heart monitor ordered by his lean manufacturing specialist. History of Present Illness I have reviewed [...] increase the LDN to 3 mg Ordered: [facility] Prescription, LDN 3 mg, See Instructions, 30 cap(s), 2, 1 cap po at HS, [employer], [employer], 193, cm, 12/26/22 16:03:00 EDT, Height/Length Dosing, 112.1, kg, 12/26/22 16:03:00 EDT, Weight Dosing 2. 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, not elsewhere classified) See #1 Ordered: [facility] Prescription, LDN 3 mg, See Instructions, 30 cap(s), 2, 1 cap po at HS, [employer], Compound, 193, cm, 12/26/22 16:03:00 EDT, Height/Length Dosing, 112.1, kg, 12/26/22 16:03:00 EDT, Weight Dosing Insufficient sleep syndrome (F51.12: Insufficient sleep syndrome) Ordered: modafinil, 200 mg = 1 tab(s), Oral, qAM, # 30 tab(s), Refills(s) 2, Pharmacy: [facility], 193, cm, 12/26/22 16:03:00 EDT, Height/Length Dosing, 112.1, kg, 12/26/22 16:03:00 EDT, Weight Dosing Follow-up With When Contact Information Bi BELL DO, FAM In 3 months [address] [facility] [address] [place] [address]- Additional Instructions: Problem List/Past Medical History Ongoing [...] Current, denies, 10/21/2020 (more content not included)... [facility] Comment on above: Result Comment: Elec tronically Signed By: Bi BELL DO\.br\Date and Time Signed: 12/26/22 16:30 EDT Retail - Clinical Noteon Retail - Clinical Note [id number]# 1.00CD:127 [facility] Consent for Treatmenton Consent for Treatment [id number] #1.00CD:127 [facility] Pulmonary Function Testson 0 12-20-2022 Pulmonary Function Tests [id number] 2#1.00CD:127 [facility] Consultation Noteon 12-19-19 Consultation Note [id number] #1.00CD:127 [facility] Office Visit (Cardiology)on 12-14-2022 Follow-up visit Diagnoses/Problems [...] told patient that I am not an buildings and grounds director, but I am comfortable starting the work-up [...] 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 While at work, he developed chest discomfort [...] not or (more content not included)... Normal [facility] Tobacco Screening.on 023 Adult depression screening assessment No [facility] [place] [address] DO Work Phone: Fall risk assessment a) [facility] the [facility] [place] [facility] Work Phone: Tobacco use status [facility] b) No [facility] [place] [address] DO Work Phone: Calprotectin, Fecalon 2022 Calprotectin (Stl) [Mass/Mass] 112 mcg/gm Invalid Interpretation Code 0-120 [facility] Comment on above: Result Comment: Conc entration Interpretation Follow-Up <16 - 50 ug/g Normal None >50 -120 ug/g Borderline Re-evaluate in 4-6 weeks >120 ug/g Abnormal Repeat as clinically indicated Performed at: [facility] [id number] MD Selvin Madden Performed By: #### 1 [id number] ####[facility] [address] [place] [address] Consenton 12-07-2022 Consent [id number] 8#1.00CD:127 Normal [facility] Patient Eval Forms Officeon 12-07-2022 Patient Eval Forms Office [id number] 9#1.00CD:127 Normal [facility] Patient Eval Forms Office [id number] 7#1.00CD:127 [facility] Consent for Treatmenton 11-14 Consent for Treatment [id number] #1.00CD:127 Normal [facility] Physician Referralon 023 Physician Referral [id number] 8#1.00CD:127 Normal [facility] Medicine Office/Clini c Noteon 11-30-2022 Family Medicine Office/Clinic Note HPI Staff Cindy is a 27 year old male who presents to review labs drawn at [facility] [place]. He reports that these were [...] there is autoimmune issues. He has seen press smith helper which he states was a waste of [...] cap(s), 0, 1 cap po at HS, [employer], [employer], 193, cm, 11/29/22 13:54:00 EDT, Height/Length Dosing, 111.5, kg, 11/29/22 13:54:00 EDT, Weight Dosing 3. 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 Working to stop the metoprolol and start him on Cardizem. Ordered: ECG 12 Lead Adult [facility] External Ambulatory Referral Pulmonary Function Testing 4. Insufficient sleep syndrome (F51.12: Insufficient sleep syndrome) He is doing okay with the new ray. 5. 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, not elsewhere classified) We are going to start the low-dose naltrexone protocol. Ordered: Misc Prescription, LDN 1.5 mg, See Instructions, 30 cap(s), 0, 1 cap po at HS, [employer], Compound, 193, cm, 11/29/22 13:54:00 EDT, Height/Length [...] Daily, # 90 cap(s), Refills(s) 1, Pharmacy: [facility], 193, cm, 11/29/22 13:54:00 EDT, Height/Length Dosing, 111.5, kg, 11/29/22 13:54:00 EDT, Weight Dosing magnesium oxide, 400 mg = 1 tab(s), Oral, Daily, X 30 day(s), # 30 tab(s), Refills(s) 2, Pharmacy: [facility], 193, cm, 11/29/22 13:54:00 EDT, Height/Length Dosing, 111.5, kg, 11/29/22 13:54:00 EDT, Weight Dosing Follow-up With When Contact Information Bi BELL DO, FAM In 1 month [address] [place], [place] [id number]- Additional Instructions: Problem List/Past Medical History Ongoing Abdominal pain Acid reflux Autoimmune disorder Bilate (more content not included)... Normal [facility] Comment on above: Result Comment: [...] of intestine) I would suggest to start [id number]-[id number] probiotics and we will start him on [...] after patient or guardian consented to allow [facility] [employer] to record this visit. HERI contract specialist and provider reviewed before signing. HERI: Hernán Bustamante Follow-up No qualifying data available Problem List/Past Medical History Ongoing Abdominal pain Acid reflux Bilateral knee pain Bilateral shoulder pain Chronic abdominal pain Chronic diarrhea Chronic shortness of breath Diffuse pain Essential hypertension Fatigue Fatty liver Fecal incontinence H/O: migraine Idiopathic smal (more content not included)... Normal [facility] Comment on above: Result Comment: [...] PM EDT With: Bi BELL DO Where: [place] [address]-\.br\ You Need to Complete the Following\.br\ Calprotectin, Fecal, Stool, Routine collect, 11/23/22, Order for future visit, Nurse collect, Watery diarrhea, Print Label By Order Location\.br\ Medications\.br\ What How Much When Why Instructions\.br \ New ciprofloxacin (Cipro 500 mg Tab) 1 Tablets By Mouth 2 times a day Small intestinal bacterial overgrowth (SIBO) Duration: 10 Days Pickup at [facility]\.br\ Unchanged clobetasol topical (Olux 0.05% topical [...] if questions or concerns \.br\ Pharmacy Information\.br\ [facility]: [address], [place] [id number] [phone]\.br\ Allergies\.br\ cyproheptadine (Drowsy)\.br\ Problems\.br\ Ongoing - Any [...] Tachycardia\.br\ Vitamin D deficiency\.br\ Watery diarrhea\.br\ \.br\ [facility] Physician Orderon 11-20-2022 Physician Order [id number] #1.00CD:127 Normal [facility] Auto Diffon 11-17-2022 Basophils/100 WBC (Bld) 0.9 % Normal 0.0-2.0 [facility] Comment on above: Order Comment: Order Added by Discern Expert. Performed By: #### 2 [id number], [id number] #### [facility] [address] [place] [address] Basophils/Leukocytes Auto (Bld) [Pure # fraction] 0.1 E9/L Normal 0.0-0.2 [facility] Comment on above: Order Comment: Order Added by Discern Expert. Performed By: #### 2 [id number], [id number] #### [facility] [address] [place] [address] Eosinophils/100 WBC (Bld) 2.2 % Normal 0.0-8.0 [facility] Comment on above: Order Comment: Order Added by Lopez Expert. Performed By: #### 2 [id number], [id number] #### [facility] [address] [place] [address] Eosinophils/Leukocyt es Auto (Bld) [Pure # fraction] 0.1 E9/L Normal 0.0-0.5 [facility] Comment on above: Order Comment: Order Added by Discern Expert. Performed By: #### 2 [id number], [id number] #### [facility] [address] [place] [address] Lymphocytes/100 WBC (Bld) 32.3 % Normal 14.0-50.0 [facility] Comment on above: Order Comment: Order Added by Discern Expert. Performed By: #### 2 759003, [id number] #### [facility] [address] [place] [address] Lymphocytes/Leukocyt es Auto (Bld) [Pure # fraction] 1.9 E9/L Normal 1.0-4.0 [facility] Comment on above: Order Comment: Order Added by Discern Expert. Performed By: #### 2 [id number], [id number] #### [facility] [address] [place] [address] Monocytes/100 WBC (Bld) 6.4 % Normal 4.0-14.0 [facility] Comment on above: Order Comment: Order Added by Discern Expert. Performed By: #### 2 [id number], [id number] #### [facility] [address] [place] [address] Monocytes/Leukocytes Auto (Bld) [Pure # fraction] 0.4 E9/L Normal 0.2-1.0 [facility] Comment on above: Order Comment: Order Added by Discern Expert. Performed By: #### 2 [id number], [id number] #### [facility] [address] [place] [address] Neutrophils/100 WBC (Bld) 58.2 % Normal 36.0-75.0 [facility] Comment on above: Order Comment: Order Added by Discern Expert. Performed By: #### 2 390322, [id number] #### [facility] [address] [place] [address] Neutrophils/Leukocyt es Auto (Bld) [Pure # fraction] 3.5 E9/L Normal 2.0-7.5 [facility] Comment on above: Order Comment: Order Added by Discern Expert. Performed By: #### 2 829116, [id number] #### [facility] [address] [place] [address] CBC w/ Auto Diffon 3 Erythrocyte distribution width (RBC) [Ratio] 13.2 % Normal 10.9-14.2 [facility] Comment on above: Performed By: #### 2 365713, [id number] #### [facility] [address] [place] [address] Hematocrit (Bld) [Volume fraction] 44.7 % Normal 37.7-49.0 [facility] Comment on above: Performed By: #### 2 787200, [id number] #### [facility] [address] [place] [address] Hemoglobin (Bld) [Mass/Vol] 15.2 g/dL Normal 13.5-17.5 [facility] Comment on above: Performed By: #### 2 932575, [id number] #### [facility] [address] [place] [address]51 MCH (RBC) [Entitic mass] 29.5 pg Normal 27.0-34.0 [facility] Comment on above: Performed By: #### 2 811785, [id number] #### [facility] [address] [place] [address]757 MCHC (RBC) [Mass/Vol] 34.0 g/dL Normal 31.4-36.0 [facility] Comment on above: Performed By: #### 2 844048, [id number] #### [facility] [address] [place] [address] 22679 MCV (RBC) [Entitic vol] 86.6 fL Normal 80.0-100.0 [facility] Comment on above: Performed By: #### 2 984468, [id number] #### [facility] [address] [place] [address] Platelet mean volume (Bld) [Entitic vol] 7.3 fL Normal 6.4-10.8 [facility] Comment on above: Performed By: #### 2 909175, [id number] #### [facility] [address] [place] [address] Platelets (Bld) [#/Vol] 270.0 E9/L Normal 150.0-500.0 [facility] Comment on above: Performed By: #### 2 323390, [id number] #### [facility] [address] [place] [address] RBC (Bld) [#/Vol] 5.2 E12/L Normal 4.3-5.9 [facility] Comment on above: Performed By: #### 2 808435, [id number] #### [facility] [address] [place] [address] WBC corrected for nucl RBC Auto (Bld) [#/Vol] 5.9 E9/L Normal 4.0-11.0 [facility] Comment on above: Performed By: #### 2 269904, [id number] #### [facility] [address] [place] [address] Consent for Treatmenton Consent for Treatment [id number] #1.00CD:127 Normal [facility] Coding Summary.on 11-06-2022 Coding Summary. CD:[id number] Ww+PGhlYWQ+IM3HNXNpZ 52qjMGyzY7rP1FIYMgCS ywgQVBQTElOSyIgbmFtZ E4qgAFwOOWy IC8+PR2tWKGlWqvbfRRg m8T1iBV4T71jbf4xELnd iDT5XOLjZhDgddstd7hf zUb2CAvoBeivKmXf NLNspP83GPB8cA48Uu08 mOEraDZqe6pvdJg4IjEz ITOuDZN9sKmrATfgi1Ci XBMpA03nzSLzz0K5 IGNvbGxhcHNlOyBlbXB0 kF3qRZysgnowg9biukwp Djn4fl98pBQhi8N2oNR5 I7IatcL1EKBonHQx WqkyfICUxJ4okyfpf7cn gdiaDhWoTUZrYPm5YRw1 HOOznGrnVgDeBQ52POK1 RTStvoBrS4NbXMVv jVlnCoB6g7D0Of8NJ8ZH TaefO6ZNPPUAEOjucSO+ WT33np46R3ZpYxsxAom3 KEAjSEF5cBX6rO4x GDNzPFvcn1S5wCY0B0Cn boIswr8rn4biROQcTYxm K17tdREsd0F5DYJatKT2 JZIueTnoMtNcwC79 Oyc+GDQoeIiif4EzWrrf d3ihn5rucXp5UkezYTEf woJfsJlyCND5w6PwMz8i UPQfhQQ3gIG7zK8l WtUqMqZ3PCutX415ScMv zURsEmehX04wW9DyhZQ+ VTOoBry0DLJowSvuZE0w H4UjEPVweephbNOu uYmpXD5gHLFzjazwAMSi jY9zXVRqZ5b0VxZlQaG2 UReqM1FbQMHeojkgXr36 cK4vIjVtVjH2LDri P6GyzuP7ZYOlfLAyXIdm ENS5Q69yz6P6FBFrAKQu ZVH8uHY2tZ3soQwiwjey bGVmdDsgdmVydGlj PApyRVqdX725VRBctXfw PkNvZGluZyBEYXRlOiAg MDQvMjQvMjAyMzwvdGQ+ OKJtPXC7rCnfZOFo hFEjTQivIz8amKtwqXit KG0fDRFfkqqzCQLxoF8b PFOewDAwyUdgFG2sSVIr globy355ZrAcTYH9 LMLcrQTrZ1JqoD6fPwUz RXMrGECvX6CbxZFgNGkp X263BCxlGrI1WZIfhhPg W1UyEASyoDwbAmT1 x6R8Be9Qq3LqdwgqL8Jx jYObKoGjDmxzMTm0U7Pa PjwvdHI+ZU11XTPjUV73 CUa2PNL6fLviDXou PVUjD3YdxQ9gUzScMQCv ZGRkOyc+PHRhYmxlIHdp ZHRoPScxMDAlJyBzdHls WQ5xVe0sFXIsXDBg yWjlyNGgWtLpa7nnIXJq PBjnPQ4jpWyhB8ViuPO9 NVIbt0x4Mg63A87rH3Yl dXA+QIXcpLZ6bRR0 kI9dKzBaHuC5PDyzP398 EhKeoYHfMgchm8pft0az oRe7QrC6TGLobwTtuNox ZQR0i9VxOd87K77d IHdpZHRoPSIxNSUiIHZh jCfjak1mzI2fRg4+PGNv gXF3mOD7uC8gJvOkFmR7 RApkU952AmWipSKf Ixsgm3xhm9riyHq7KyOy HKFmkvEyiZhzCBM8a8Ta Rc29V8UiwEcgc4XeBjd7 vz90yYNqv6O4gWF1 P0QmRXQriishpSLshZlk PM8lSWVfxfizVUKsqP5n IKOxR7e1ClCnFtM7CTjg K5QzhmN0TOLffXJo VMTjzHUFtH3alhjcw2xm yxwpMbClLIRuZEi8IVq0 TEHnlIqmHhMtPCW6ZqR9 FJA3vYJvpB1rdIfu noetmH4aCze+ENQ8fQVe cFSKNN1lMizdpNY+PHRk VDX6jBjpQYluSCBrdJ5z HCLlM5m9RtVjShD4 HHnzT5EzvpA0ZZEtuLFp PLYdgGHCwV5hrisig2zf fsrfPqPlKTRlLKa1DEp2 LWFsaWduOiBsZWZ0 DuM3DIF1rRMmgI0hkIpn cblkvA0bCec+QmlydGgg MYF6XOa5L9FmXgt0GZNo zDojMK2eiDOhZUan By2bxSwcrHjeEZ6hRDXp vntsy911UfUkz2oeRPDt rYTyIWxeENY5H23id0U3 EYQjOBVzWSV7tQN5 jP8akHhahvibdSMgeWoj ruDypJguRNbsTGvsA410 CURidOpkJmQpCWd9L2Zf Crj5VFSpcYumFT9c iOJpGRwhAv8cfZqhzGvq MZ2uMWTpnhclc777NqQi g0enGZZnuGCpXTciVHG8 U88cf8X9LMJpSNXu DJS1wPZ0fY4dpPbxcjnw bGVmdDsgdmVydGljYWwt GTquR902RBFyeUzxGsHm lQj9T8UiLcn8IZLp mShiUF7aeICoHCbgAf4g eGztbIdtIV3gYAIljsgo j557CfPmb5mcADNoaKAp PIymBIL8U42gk7Z5 TSNaZBGmHQA6sBB7oK6h bGlnbjogbGVmdDsgdmVy yEqcKMaxTDfaK677GWZs cDsnPlBhdGllbnQg ZOfyOMq5W7EzApejcMC+ XC89BQLdFA61pGUhyERn v9jisLq2YeIpOSTeNEA0 hGgpSSnez5FvKRRf U18kkZMil9X3LZRgoSyl dNCsTvLuhVZ3nF8fWMeq iamgw6tufxklJskro7vm uc38lH05J88vHWfb ZHRoPSIzMCUiIHZhbGln ov8atQ2vCg7+PGNvbCB3 dZB4pW1rRQZhGdL8SZjr Y449UmEduJCxUltc h3fwa0xlbFn4RjX2MMLp ivQnxXrmPMX2z6UoAz34 M94dYEepLHUwHXGtXRGi AOVkpIuwmq9btP0y Ii8+WFUzwOT6tLD8uO1w SeIfYrJ6NAgsN711YrZs lIYmDgguQ48uA2KadUF+ JGDzOgy6AUImiYhh AB1ryJFkDXegNx1yIIL5 HkYlUsGkQLejK4LsSRTr bdiicvfloAF3DAVcTPMn iJ13Qf4wwKjzBXLv gBIZjP1qfhoaa5aqwsbx BxOpRKYfXEv7MOy1CRGs qXfjKhRoVWI8OpO5ZMH7 pCSeuI7mnCngpuuw gM9pR5WbLJHbsdwwLj41 sP4bOaZlYnC2HIevRyl+ Er3CZARNC6nRDAVDRS2F QVMgRDwvdGQ+PHRk HFY7oGntGDdyOZKkyK7c FBRyX0p5UyJxTfZ6XVzd Z7MaBOImunccFm98sJ0o HnTwXvV1ZEfbV6Jz ijJ2PHYmwAXjXXqrAFV6 H41ou5Z6GVCzKIQpQXC1 mNK2vY6foCkfwghitAAb dDsgdmVydGljYWwt ZNjtB517HIBurAywVkAr HkJ2JbC5LRG4F8LcJpg3 NBCpsSsoQQ7sfSVmGGsz Fi8neFldiGxyXQ3g GRLulxkrWAOovL6pDKNr iTJplNtjJP1pNCRvivku e899SsGwFNP1WLNhdJZn N7FocM6wLkFnPMYf UUJzR0UrwFPmLTadQ442 GImpTxJ4XJPqwqOdP7Qg COBcpZbzWbJ4j6J0Df0v NyBZZWFyczwvdGQ+ GFBtLVR8eQtzFKsqPRXv uP5kYMDpH1m0HjGwXrU5 NZhmR5EcLHUsmdlwTa42 tM9eEsYwLaL4NBsa C2TvivP4GDXasHKyWKee FLW1P48mw9Q6GZZeRRDs TRX1eCC2yR3fuUovxavn bGVmdDsgdmVydGlj NOnxQAcmN950UXWijTiv Pl1asEH6J8InThf0WSPr yPoyJM5ojCEaKJycTy3u oOigbVldEM3tYSIy zqrgLBVyjL1wOYRzgIFy xPvzOH5bMZAjnchah603 CmGbHMT4MIGcwHEtF7Yc wC0nLdQaQYNwLSFs H8JvjXMzCJtjF696KJiz AfU9EIUpamSfP1BfWXYh fIsuYgX9s5X3Fw7RjIDf JDToXY62VI70CV85 P3OyLybjzXLqwXJ+PHRh YmxlIHdpZHRoPScxMDAl MkYfcOlwUR2xWi1nDUGx LWNvbGxhcHNlOiBj s9htVNKyQDjrMU0upGpv W9UtnJT9TBDtq0a6Bh18 R67aK0QqmXQ+PGNvbCB3 iPX0lM7eEnKfBuW6 ZGthZ073RlRwwJXuBnrk r8cic0svyEo4HnZnMOJu xrFdkIugKYS1r7MkWu78 L63pRMpiOZXuRTNn PQHcJXKpgCfsim7jwY8f Ii8+ABAcmHR0lCD3yL7f WeBuIgA9TLbzM279WtIl sWWkEfcoN02oX6Et dXA+FTNmGwf9XLUrwBof XJ3fkPBdKYptXw1oJES6 VxKvQfBpECriR5QfGWBm royddbhhgJC0JVKf BBUhfQ16Cb4nzEeyPo9v DEWoKWJ0BYYjjDGlS3Lb sI4wEgPxWUVfHBRtJ0Ut zGEkURmqC310YDrc WbD6MPQoqaKvV2HmSVEl gKbpGsT2f4O7Gb6EfMvl rVPhIQ3bGqPsRLh2C5Wf Fuy7ELWswBgjTA7q wUCeKRaiEg7bbGledYln YI3mAREbdkkjr728JfRa t4moMRJycBCxXQiyKVV1 B43xp4V4MPHuJRSo KLP8oIN8aH5vzBbpfgaj bGVmdDsgdmVydGljYWwt ESzqC843RNAuzCxkPtID Guy7P1XwFaw7JPRd wUkwUD3gcWPgPPivTh6i wItrdGgcWX4zSAZnxeeh x004VzWjc0ihFLJvhCQh GRrkVGB9G11wj7O8 QDPmQVVdEOY7lLY8gW2y bGlnbjogbGVmdDsgdmVy qFkdMMtrCMlqZ255DGKy jNjyKn3YHnz1T5Vi Sad2GKSjjMpmNR2smGDz FUonIj8uuMkexPaoUV2r VXDaahhvg015BbNwd8vj IDEwcHQgVGltZXM7 D92es2I1IFAjJVWlMPC5 tYS9cE9rmGkfhakfwKVv dDsgdmVydGljYWwtYWxp O215OBXiqMdsZwYd eWVyOjwvdGQ+NR23xj47 Q3ByOmnhNmh6WZOpVMU5 wDB6xC0vMKZwCUrzl6S0 wCD6A4EwuhOynw6f j0mqUZJv (more content not included)... Normal [facility] Coding Summary. CD:[id number] Ww+PGhlYWQ+ML4ELGEeO 42ucDIloW2mV6MTBPrXI ywgQVBQTElOSyIgbmFtZ F6caRJdLTPk IC8+OJ0mQHZxZzmygDCn j4R8aDI5G75jko1xREaj tNC5JXMpYgJpegtdx5mq aUn8YZsrEbrePuKw JOKtbV06UXT6dP68Ro16 cPRanEPve3ofrVe7JzWr KQXeQJF7oZncFNlze3Bk QLQdN73byAMza3I0 IGNvbGxhcHNlOyBlbXB0 xU2vOEbbpvxab8qczcdk Num6en71wBPhe8G2cRU7 J9JoveM1QZNncXCs VkxlaHGHlD2uhusiv0lf hfasXwMyUUDgTJz3SGs8 RVJbvTlaVmVjOF42NRG5 KGAlxpMhZ2MkJECq pSmbEiX1x7D5Ek3WC7ET OvphP7UHWDBFAKcraMK+ MA13eq18W9QpKatvRfa6 SKCmIZJ6sZY6oK1i NBFtLQhrr7M7zGF5Y9Yh lrMruj8in5ayPKFrCOng N50cjWIqr8Q4LTTcjPA5 BLPjgSgoOfFpuJ17 Oyc+NZPrnVjce6QdZccl i4gfa4vljCf7BtgiGLQp zoYugKceRCI7u2LiLz2r TWAlwFL1sZO3tX6x JgVjIsK8RQcwI906BxNr xFFnSurzA30xW9NgsZY+ LOUkSjw9NNOzfLxaGL4o A3YvLSQlmiilpIPw lUzjIA7hGHKfenutXBYs aN7xLVLdX5e3OnQdXeR8 QBvxA7BgBEJcmxzyTo18 rE1tDdXjKhB6DLby R7ZmmsE7ATHqhXJeOYrk AHY9Z91ph7U8IJAlPUZe UPJ7xXE9oJ7dtZnloekp bGVmdDsgdmVydGlj WYkeSOxiW361NYJkbNjo PkNvZGluZyBEYXRlOiAg MDQvMjQvMjAyMzwvdGQ+ PPLdXGW7vUpsGCId iAMgPDwuRq1juKsulSxr FH5xJHMfjgahJUOvtE0p MKTbkOGrzVxfOH5xTZQp lskqn538DwScGVT4 RQWuyFGvB5QzfS5wVzUx MVDkXRUxN1WmwEIiXNvl H326ICjsHxH1OJGozxIz S0NjKUFmvAnmFpZ3 j9N8Xk6Gv5MchxzeA7Us kUKdOkFsCfedHAa1M1Bc PjwvdHI+VU82EHCdQK79 YQg7XHP1nVomUJkp WDQaD6KhsB2sHkSoNVLb ZGRkOyc+PHRhYmxlIHdp ZHRoPScxMDAlJyBzdHls WY2fKg5oSOXlPPMm gKihrTBtQeFsv8shESXq NDjaWL0jjNzyQ7TyyKR0 EFJgo8b6Hn44L24dB5Sh dXA+SDEldJL2eXN5 tM5eJqBmYzR9CDvmM847 TvZunZVeXxjhx5dzc0oz qXp8OnH8LAJjdrQdePyx XHA1w6PgXq71U85s IHdpZHRoPSIxNSUiIHZh eDzzyf9wzC5vXr4+PGNv kIC0kTK9oF5bAcBdFcG4 ATzsT352VpEyfMQp Bewip2unt8czsDc7AuOm ISYkxvMcnTqxPIZ9u3Mm Zm38R4MlrYehe8LqOxu3 ui22rPUys5N0mCH6 F4FlMMXcqalkrEHpcLsk OE3vEGNbeorqUUVoyS7f EDEiZ7n0QsYhEmI3HFog S3YzpfX1XECwsZIu QGWnkLHLuK7yhxlrb7my stkzLdWnOTXvNIe9NVq0 OZRecCsdIdPuUYK3WdH4 KRT2kYGtoU5kfKpl jogfeE4aEtq+FLR4uOWs yUELAQ8cSagsbGY+PHRk QVW0mFnsWGvjBAPbnT1k AQHcR3r9NeExQtX0 TQnlX5ZmttP0URBkpQNx TAHskJSNoF2poeyjs9xp ebjkKrWiSJLfABt4JJd4 LWFsaWduOiBsZWZ0 LrF1XWS0gVSnpT1rrRvs cqgzpH8cSbe+QmlydGgg ADO5JWw4B0CqLzx1BUXx iEctTU3ymOGlPLon Yk9waUwvaPlqYZ6hFWFf qhexh466KoFir0fpNLVw yTEgXXlpUDB3M18bv0J7 HEDoXXYnQUS6mFY6 pF0kqFgzwlbqfELyyIns klHpwEfwCEcyONebC181 YRKuyIonOxQdKZc8B9Nj Tad4WHEnsEnkUK4h hDCgHMizUo6roVdqdEoa AE7tWKYoqqszr705TwAt y7jpVJMtfFNhEKupAWG8 F59xt1B2DQEbNSPz WLK4yQN0oB0ioPlodxgs bGVmdDsgdmVydGljYWwt RPahN203OLTxsBufFgEb nKb5N6WoGef4FTPi pJoaDJ4giNKaZHlzOg2h yVzrtKyuLO9lUPNoqfol u434HrOfi8lcXELmcRVx UEumIWA8E90td6F4 WDAqYQHoVNX2zIW3jF2u bGlnbjogbGVmdDsgdmVy yVrsVLspPQyxG547VOOh cDsnPlBhdGllbnQg IFmvHIp2M9GmVjtkkZV+ YQ24DFAeBR46jKMyvZZe d6jihGy1NeGdTDEvAAZ1 lJtpOWxdj8EtPWTl T71kkZLrd5O0DSGmxApn mHNwVoMjeJX4zJ6eHHym assbo9gzzevaQkzas5cq dn82pJ17D49zPBjq ZHRoPSIzMCUiIHZhbGln zg2ijE2zBp5+PGNvbCB3 dPD8uP8qNKDgXfJ2WVmd R685UqTyeVTaEbcr q4gni2nqmIq7TiQ6ROSn thOagJyeNUE4a9IsNk33 P87hVIxxFSUnZTOlRGSe OGSenIljim5dmU3e Ii8+KBHggMY6zLX7aK3a ByQaWkI0BFnsH047MuYu bEPxApzuR68bT4NmyRE+ FDLgDzt9IAVatRsr GG0kwMMuDExhWn2qOAF7 WlPzDtVoBIymM4IwWQEf zwkamtcbzTM1TBZuNGNg wQ59Cx1bsXneUYJi dQAPvG7bzrfpf3gwkwsy GhAjAXImBKz4JOf5JTDr eTvwJnFzSXE4QbL0UVZ5 wWLoyI1udSicawzd wO3jP4AnNLMhbtzaVy27 gC9cTuBkKxP6PVrkZbz+ Rz2HRWNBO2pHNKTHWN0V QVMgRDwvdGQ+PHRk NCU2jRgzKGalLJIsyF2a KOAwS2z2OgQvTbL8PSjy L1NcSROovrqkTd74hD5b IvHbZzY4ASvdL3Te vgK5LYNepTDhJQmmMNC5 I38vb5E2KFMiFDGlFOA3 iHB7tX1ftRbwkxxazLJg dDsgdmVydGljYWwt QGhyS119ESBdgCovOnTm NgS3EuO8HQZ9C6QvJyu4 UEEaxVloKT0fgDDtQBau Hp8zwQlikRwzUK5w VUIeurtgRMGpwH5jYZRv qCCjqUwjOD3eTKZmyebn i882WfLjCFT7OMArvIUo Y1UytO6eOgFySNWb RJCdH2WrfZTqPLycU652 VSvmGwG5TSFggnCrW6Vz LMQciGowLcT4s9I8Jl8c NyBZZWFyczwvdGQ+ HXEnLGE9rJzwORntPGRb fD9lHEUqG2k0PmXoXnQ6 XEvmC2TtMDYhojotAh95 hA6zZvWqQsN3QDwq U7GwifH8VOOecLXeTNmx KRU1D26vr0B8KJElJYFd TED0kNV7jU5epLhcjvou bGVmdDsgdmVydGlj HKqsAUwbA718BUDimMrn Lj0tdKX4G0HqYha4XMAm rZurKC8xuRZmZIzkMr1q lNpvoRhnRI1kYSBd hntpTHWfcI5lSEEneRDq yAbcNY5tYADcichur832 OsRkIBG3BKTryAEkL8Pa gR8aBpJjIXQtTWPp T4FqaOUuRJuaE545NUzf LdW3TZYssuScP3IhNNQr lVtxOjG6m5Y5Zx0MkXCo IMUcQC50UG20FW21 Z8GzMxltlFUkhNJ+PHRh YmxlIHdpZHRoPScxMDAl LfGipYdnRY7fMj7mESLj LWNvbGxhcHNlOiBj l4zvWCEfIJqjVK6utSqf C5BvjZT4ZEJeg9u4Kd04 Y47vI7OcbFA+PGNvbCB3 pRE6iE6qAjWyYnB0 BBwdT630DtJosXQnDoxd c3hqa4irmBz6DiIrIKEx fvElrXigDFN8a4JuIl08 B62fALvbNJGfGSZb WROnTJSafIbvpn2pbO0e Ii8+CZCjkWZ7fXH4wN4c SpQsMhZ7FOowO579EqDb mQEfSumlX51pT5Rr dXA+ENGvUov8KNEsfNol NM3haRZkNQksZr0nFXZ4 TyJdTlPrNWeiK6OlIVYq cwlavlcdeZX6MULh BQVamV60Ny8pqCgwOm0o BCWtHWB7IVTdoKFgG7Mc iD8jQtRwGYHeTIXbB1Dj lQGsYIngN484PAby XyN1BAMwazFdN2TtAIZy wHhxEcU7l1F3Gc8GyBcz jDZoWA6qViHgDXq7W8Hb Eza0BAPotSgbJA0u tZAcEWrfNf2dxDpixMcx MY4cAFVywhqcp026SgQp b3jxORAhmDUjOHbnWIP4 X50up5C6HBWrCCYs LQY0iRS2kY4puHuaiucy bGVmdDsgdmVydGljYWwt ARcoH751SNEefSokEtIF Leg9U6SrMlm8UEPt uOdyKL5ujBXlXElrWa9x iEzmdAppWD8qXPMuqalx v717RgHxx6siKYDwxRPn OIvoXDD4L11lv1N0 YLNdCDOgMEQ8uXN9gX7m bGlnbjogbGVmdDsgdmVy hHrvZJwtSVdcX907BAIs hHnjXw3TCft2A6Ll Lmn0MPVuyBaoSY0juTZh JXjoVu4fsNkfqQgdMA2v WJBeyqxoe374EmHeo1kw IDEwcHQgVGltZXM7 G82wv8V5PMNjPXPwJVX8 sQK9aH4cuPpfbmopyUOp dDsgdmVydGljYWwtYWxp D361DYPryBrmFbUt eWVyOjwvdGQ+VP29qk18 D0AnIbrfUrx2QMUvUJN7 oYB3cZ1nLYXsLEstt6C0 zLG6U1CpmdOuya1b q6grHJNb (more content not included)... Normal [facility] Postoperative Documentson Postoperative Documents [id number] 6#[email or web address] [facility] [facility] Phys[facility] Orderon 11-02-2022 Physician Order [id number] #1.00CD:127 [facility] Pre-Certification Formon Pre-Certification Form [id number] 5#1.00CD:127 [facility] Auth for Release of Medical Recordson 11-01-2022 Auth for Release of Medical Records [id number] #1.00CD:127 [facility] CHEMISTRYOrdered By: SYSTEM SYSTEM on 11-01-2022 25-hydroxyvitamin D3 [Mass/Vol] 29.7 ng/mL Low 30.0 - 100.0 ng/mL [facility] Remisol Cobalamin (Vitamin B12) [Mass/Vol] 296 pg/mL Normal 50 - 1500 pg/mL [facility] Remisol TSH Qn 1.27 m[IU]/L Normal 0.34 - 5.60 mcIU/mL [facility] Remisol Consent for Treatmenton 10-14 Consent for Treatment [id number] #1.00CD:127 [facility] Consent for Treatment [id number] #1.00CD:127 [facility] Consultation Noteon 11-02-19 Consultation Note [id number] 8#1.00CD:127 [facility] Physician Orderon 11-01-2022 Physician Order [id number] 5#1.00CD:127 [facility] TSHon 11-01-2022 TSH Qn 1.27 m[IU]/L Normal 0.34-5.60 [facility] Comment on above: Performed By: #### 2 248545, [id number], [id number] ####[facility] [address] [place] [address] Vit B12on 11-01-2022 Cobalamin (Vitamin B12) [Mass/Vol] 296 pg/mL Normal 50-1500 [facility] Comment on above: Performed By: #### 2 278748, 2208245, [id number] ####[facility] [address] [place] [address] Vitamin D 25 Hydroxyon 11-01 25-hydroxyvitamin D3 [Mass/Vol] 29.7 ng/mL Low 30.0-100.0 [facility] Comment on above: Result Comment: Vit puckett D deficiency has been defined as a level of serum 25-OH vitamin D less than 20 ng/mL (1,2) by the [employer] of [employer] and an Endocrine Society practice guideline. The Endocrine Society further defined vitamin D insufficiency as a level between 21 and 29 ng/mL (2). 1. IOM ([employer] of Medicine). 2010. Dietary reference intakes for calcium and D. [place]: The National Academies Press. 2. Deniz MF, Erik HERMOSILLO, Jaqueline VARMA, et al. Evaluation, treatment, and prevention of vitamin D deficiency: an Endocrine Society clinical practice guideline. JCEM. 2010; 96 (7):1911-30. Performed By: #### 2 642455, 8635310, [id number] ####[facility] [address] [place] [address] Physician Orderon 10-31-2022 Physician Order [id number] #1.00CD:127 Normal [facility] Coding Summary.on 10-27-2022 Coding Summary. CD:[id number] Ww+PGhlYWQ+JK4KNEIaO 88hkLBmjR4kF4CNSGvMD ywgQVBQTElOSyIgbmFtZ X3vgNEaDCXg IC8+FK0lXMQeYrvspJKe b0T4jIG6X35ken1rHWza pHY2NHWlTnOelpshg6fs qFo6ZNbtRyzyYpBt SADjqP31AYY3lI72Fv79 jTOnhNTum5aifDr5ZaTk MUEjBSH4nLqeCTwcn8Ot MCChV00wfZZoz0L6 IGNvbGxhcHNlOyBlbXB0 xX4zFBotwgnsv2lpwwhh Wgt5nt95gLPgp5E2tPF8 Y5SnqiW7EINvrNJp RdxrdEFIbW4tqnhfc8eq gdkrVtFdNKApZMx0AQk1 BOUtdAjmHtXqED36VRT0 REBkebBwD1FzFMVx xTwqAdH3f1R6Zn7JP3UD SiuhY6UYPQVTWAtybEH+ RJ00ve32X0VrYnqgKvo8 GDUnTGG4zAS8jW5f RETdVXnsc2N8oCY1J2El rzTcqw8sf9kzIZFoKUjn U42aaYIiq2V6RKHohYQ4 NXTrzSauCiVdmN54 Oyc+IDVvnLdju7MiRqub v2pmv3fhmWu1TghvBEEf trMzqRezXND5u9WyMu9j LNFgvKR6sKY2rY1x NjNnMkO6UKkbY200JjHh eYFvHqqzH12eJ7XlwEF+ ZTUpEdr2RXFfrNqmEE4n M6HrLYZuawlkuDZj mViqRT2tYTWbpcbpRLAa kN1mRRGvC7d9XdUrAbO0 MRayV2EcSUReotmzMf20 iP3cBbEqIiI9HSlv Z5MjhsO1NTHrsVVaJLhu ZPG0H59fq2N0JSAyWRZy PBL2aDM2dT3gsQfhqebo bGVmdDsgdmVydGlj TIrqQTloA944SNRhdJpc PkNvZGluZyBEYXRlOiAg MDQvMTQvMjAyMzwvdGQ+ OTGfHRQ4iTmcQRGy fUJjKZnzWf3nqXdafZup QC0xRDNtnjbuCUOlaC6f FSOocJHxrXxbOT6eKUOp yjqmz491AbSlBZA5 EMBsqGOwG9LirE2bWsIq WZLzYSJtK9TlyTQiUXwa C325DPhuMdC5OVFskvFq D0FoNAKggJuvBtD4 q8B1Ks7Gl1RdmupxG2Ot pHWkGsOeShvcJBy0U5Xp PjwvdHI+EP66HRQoIL26 APk3WIR1nIodBWjj MDGmF6UmaO2yRaMsWKSc ZGRkOyc+PHRhYmxlIHdp ZHRoPScxMDAlJyBzdHls VO7rVt6wPEJwQELl bSpleXKoMmJms2sdXQOc YHkvKQ2nxMapM4MngIT7 CNKib0j9Ne63C23aQ8Kd dXA+BNCtbQC8gYT3 wD4qKqNgYgO5KJwpI579 JaWanXAfOuttv6jch8ou sVh1OwW4EKAibpWglArr SIC1g0SaAw75L57j IHdpZHRoPSIxNSUiIHZh yEcqvh8egM4sDw6+PGNv fVK2oLJ3uI7wRxJtJxS3 ZBrhP735VaXluIRe Ajfbs6ddu7rjhGb8TmUv MLCeclNadXikTLM9g8Nt Dz44S8WzvAcgo4WbNpe4 kb63fOYva2H1jLM0 G4SwJPZjleiliQDviTfn UY6xFNYtkgylEJAupW5p YAQxJ3f9SlViWlA7UUyj O3CntzS1TNIhsWTs XGXogSIEpK1prfttd2uq oaniPgAoGJIeCLt7NXp4 NQEaiCyaXpCxPTP0HvB6 EWA6nHPeeP1plRzd cddfcC6sSbu+TJS6vSEb jUQNYO2gTnlnxGI+PHRk NWV9kAvnOVilLTVfvK6f XQGdW8a3JsOiAfZ8 ZWgdK3PupeR3VJBquQYp BSJaxNWYbH5sbdqon4hw xvupQaIcKPOnYPu3CGb7 LWFsaWduOiBsZWZ0 TyP8SXE8dKEtgW9xxEof xgqbqN4mOpk+QmlydGgg BJM1IEs5B1TmEdt7PUCd mUumML2ljMEiZOcg Nb9cfWibdNwvUB3rQQWf tzxpm536BnNor6vdQHEm lLIlMRviCYS4A83or7Q4 GJHdEYFfGUX7kMV2 gP6wnMucyyyobAAqzUmv unSvpAdqQAloZWekH297 QXFheYnvSwCnUDt1V5Hn Wje0RRUzpUmrOX5s nKJlQZfkEt4neJibwIgu FE3vZNLqejxvt608FiYm b0lwTLOudPXgAFerTRK6 R90ns3E8KVXlKGNw TJD9mLW4fG2ubSutbuhz bGVmdDsgdmVydGljYWwt TNcsK685KAGtiNbkMuSg jOq7K2TlKyy0ZEYc cTupIU6ebYTpXAtzBv4t mHhqhJpeBJ6gQLEgnuqb h800IgAtr5kdAUGneYOm WAqtNGL0H45qq9B8 RIVbKHBwQSX6gOX5rN3u bGlnbjogbGVmdDsgdmVy wJpbMTzaRFxbP151TUTx cDsnPlBhdGllbnQg BGipHPs8Y1KpOaguxCY+ FH05MNDtSM23xQLfpAGd u9gwlDe0CtLnGWKnBBJ8 uYyfKSilo2ZbSSQe S10xcVSfe5D3WUXneBfp zOCbHzQinHZ5kJ2nTGem wnedr0bazpguIwpri3vq wq16eV03J49jMCmx ZHRoPSIzMCUiIHZhbGln bl7xqL8lKt4+PGNvbCB3 aDQ6yS3nXGBcZfU8ANts D745OjNmfDXoKlob h2nyy3ljbRq6ZhF1IBLd qyBpdPfkJDA3q8IwLr95 G02iUMluRURoWGQeTYZt BYRxgNphjo9pwO1q Ii8+TGMsjHY2lLO8cI9o EgNyMrA7AUdhJ355RqIx aLRcNsveF40mT7DneQY+ XCMqLga9WAGnjAsh TI2ksARyGHdpSk7cLTT1 AlInZhSnEMuwR4LmOTYh racxteggwEI0ZEJtMIWl bS79Zt5ulFkjQXIv aYSEdC0luvgog9jpmkwu VjWyAUPvBDr4KZc6LNTp oCtrDiIqOBR4QtN6GKO1 cGDovE0uzCjuytsb pD9uP9GnIJQquqayXo05 hG1hKhIwZvN0OTpzGrz+ Og5DKDBGM8wCEUDIVH7F QVMgRDwvdGQ+PHRk GOW0dCdsAWmhOEKezZ8h WHYdF4u2TnFsRiI7QYli G1EcRZEyaqgxJn87yZ0u KdZuKqW3MOadF8Mn dkP1ICDimWZoOWdrJXB9 K25ez1Q9DSUiJPIvMNV7 uJE4kW6hnAojxpjqvMNm dDsgdmVydGljYWwt NDtvY512FPKlwFxsKzPf SjW7BqF5JYW7K9VeTct2 YPOeiUunJD5jfUIjLSxd Fj3puQbbiLrkPL3m DSNwsvqaATGmiV4cJJGs cKLfqNnaIL4fSAUcvzlr k026MvOcGLV6SGIefAEb T0DdhY2zYzEqHHQk VKZmM7VkjBEuZMyyE715 VQzcOlI0YGCywrHbC3Bl YKIktRdeRjH5a2J0Gz0b NyBZZWFyczwvdGQ+ FKWuTKK4bTyrIVukECUa oY8gTQByF7p2RcOiQoV2 WXruS1FvFBCroyocOt08 fB3cImQcOpY3PBqt T4YaglN7UQGggNSiXVdl FWK2R33jb3N7BYRmFJLr FXQ4nJX8sA1dtYzitbqx bGVmdDsgdmVydGlj ECazSPnwG757LDHneGfi Vo8ftLP3Y9ZrBkv3PHHi bSpiMB1eyCSuZWxdOn6w wFloeUfdLA0eOMBm xlhvWJRvaF0tWEWrqLTs vGefPU5gOVUybttad988 CuEkTGT7GBEorEQlR7Ga yF8sYoQqJBWoCOXq U8OglSWiXOazL500AEqp EaO3NAGhojYsN2MfDZWa yMmgJrB5f0T5Re0BvVKh XOLoUV02OL29VF94 A7VeUiszxOLroYV+PHRh YmxlIHdpZHRoPScxMDAl EwKneUvhZY3iIj2fPEFi LWNvbGxhcHNlOiBj o7wjXQWzRUolOX9qxDix O1QhqWC8GUMbc9y0Hf96 X84kP7EdxRB+PGNvbCB3 wQT2fK5tRkCbMhT9 EGkjB228LtEllHVaHuio w8hri7vwaDk4PpXhVAOv slCmdMosDNA1s5BsEw40 C83eSZfxWBNwEEFc EKLtLNXapFygqh0ebX5i Ii8+AKIxrCA3tGX4gM5j HfAuTcK5ESxlF074MoMp gNBvXfjiK21hX6Pq dXA+PQZnAau1EXCqlWpc VR7oeYTfZZwoMu6kLBI3 VfMpJuPsKWajT1UlPUBe rvagugbwaJG5BEGe OABzkJ63El5tdSebQx0z SFIbBLW3ASNlzGStM3Nt fW8rSsOpEQCyPHBkF1Dz qLCyJXivY883OUzt ImQ1UJXvvjTeO7ZqGSPu kTpsAxY7g6E0Es6WfKvd wLXzOD5iJdSwFHt0Y7Qk Uds7SMAwvRxkDI7z kHXrMIscEy2syHmgyOzb MO6oHHUnmkanh148IbQo o8loWBOakEMfMBivWUV4 S18pt3V4YFQrRWQq JLU9tEV9hJ4vjLxtmqqf bGVmdDsgdmVydGljYWwt KQcfA107PRUffUljAqQD Dhe9V5QxUkl2TLHf xJwpHB9efMHqESpkJe1j yDnvsYfnDT6tYDKvonwb g193SsTpu3blEZKmoMRx LMnvPWA6Y58wx2E4 DZAmMVNsJJH4uFL2tL5m bGlnbjogbGVmdDsgdmVy nQlxUXbrZIonI584UIJk uEfjLv4WOzp3U9Si Zyg1XFZqbSltTU4ptSTv LEjsHk3moIdemLggSA2z NVTfcigsh694QzSat5kf IDEwcHQgVGltZXM7 L44mk7P1WXMbQFOmZPW0 cQM5sP9miKrkjgqxaAEt dDsgdmVydGljYWwtYWxp G216CQHodLvdRuEm eWVyOjwvdGQ+EZ04ja50 E7ZyEglzHcl5CRKaFPW5 mCV2eD3rNAAvPVtqt1D2 iAB9K4AdztFsnk6o v6wyJSHm (more content not included)... Normal [facility] Physician Referralon 023 Physician Referral [id number] #1.00CD:127 Normal [facility] Ambulatory Visit Summaryon 0 10-20-2022 [...] Appointments Sunday 9:30 AM EDT With: Where: [facility] Sunday 10:20 AM EDT With: Trupti Marques CNP Where: [facility] Invalid Interpretation Code Abdominal pain [facility] Auto Diffon 10-20-2022 Basophils/100 WBC (Bld) 0.1 % Normal 0.0-2.0 [facility] Comment on above: Order Comment: Order Added by Discern Expert. Performed By: #### 2 167563, 5573212, 4181423, [id number] ####[facility] [address] [place] [address] Basophils/Leukocytes Auto (Bld) [Pure # fraction] 0.0 E9/L Normal 0.0-0.2 [facility] Comment on above: Order Comment: Order Added by Discern Expert. Performed By: #### 2 378289, 9124826, 2297536, 89353426 ####[address] [address] Eosinophils/100 WBC (Bld) 0.1 % Normal 0.0-8.0 [facility] Comment on above: Order Comment: Order Added by Lopez Expert. Performed By: #### 2 259368, 5138230, 2306185, [id number] ####[address] [address] Eosinophils/Leukocyt es Auto (Bld) [Pure # fraction] 0.0 E9/L Normal 0.0-0.5 [facility] Comment on above: Order Comment: Order Added by Lopez Expert. Performed By: #### 2 111731, 9323060, 6790486, 03528796 ####[address] [address] Lymphocytes/100 WBC (Bld) 7.2 % Low 14.0-50.0 [facility] Comment on above: Order Comment: Order Added by Lopez Expert. Performed By: #### 2 424620, 4238959, 2500240, 08071155 ####[address] [address] Lymphocytes/Leukocyt es Auto (Bld) [Pure # fraction] 1.3 E9/L Normal 1.0-4.0 [facility] Comment on above: Order Comment: Order Added by Lopez Expert. Performed By: #### 2 373326, 3815499, 9689655, 03744923 ####[address] [address] Monocytes/100 WBC (Bld) 4.6 % Normal 4.0-14.0 [facility] Comment on above: Order Comment: Order Added by Lopez Expert. Performed By: #### 2 765945, 1974841, 3834178, 86274792 ####[address] [address] Monocytes/Leukocytes Auto (Bld) [Pure # fraction] 0.9 E9/L Normal 0.2-1.0 [facility] Comment on above: Order Comment: Order Added by Discern Expert. Performed By: #### 2 291034, 3596915, 3797434, 39155712 ####[facility] [address] [place] [address] Neutrophils/100 WBC (Bld) 88.0 % High 36.0-75.0 [facility] Comment on above: Order Comment: Order Added by Discern Expert. Performed By: #### 2 329304, 8669149, 2419392, 35241110 ####[address] [place] [address] Neutrophils/Leukocyt es Auto (Bld) [Pure # fraction] 16.5 E9/L High 2.0-7.5 [facility] Comment on above: Order Comment: Order Added by Discern Expert. Performed By: #### 2 934434, 9580082, 2041183, 86004939 ####[address] [address] CBC w/ Auto Diffon 3 Erythrocyte distribution width (RBC) [Ratio] 13.1 % Normal 10.9-14.2 [facility] Comment on above: Performed By: #### 2 034809, 3256324, 3043982, 98132776 ####[address] [place] [address] Hematocrit (Bld) [Volume fraction] 43.9 % Normal 37.7-49.0 [facility] Comment on above: Performed By: #### 2 497437, 2209977, 4650114, 63866592 ####[address] [place] [address] Hemoglobin (Bld) [Mass/Vol] 14.9 g/dL Normal 13.5-17.5 [facility] Comment on above: Performed By: #### 2 866488, 4989460, 9210505, 95421931 ####[facility] [address] [place] [address] [place] [address] MCH (RBC) [Entitic mass] 29.1 pg Normal 27.0-34.0 [facility] Comment on above: Performed By: #### 2 148233, 5502476, 0492270, 02000489 ####[facility] [address] [place] [address] MCHC (RBC) [Mass/Vol] 33.9 g/dL Normal 31.4-36.0 [facility] Comment on above: Performed By: #### 2 962200, 7912766, 0536204, 53783549 ####[address] MCV (RBC) [Entitic vol] 85.7 fL Normal 80.0-100.0 [facility] Comment on above: Performed By: #### 2 742008, 2124282, 2589178, 79447126 ####[place] [address] Platelet mean volume (Bld) [Entitic vol] 7.3 fL Normal 6.4-10.8 [facility] Comment on above: Performed By: #### 2 844445, 3461188, 0707810, 14719997 ####[address] [address] Platelets (Bld) [#/Vol] 318.0 E9/L Normal 150.0-500.0 [facility] Comment on above: Performed By: #### 2 057489, 1152325, 9046338, 21163409 ####[address] [address] RBC (Bld) [#/Vol] 5.1 E12/L Normal 4.3-5.9 [facility] Comment on above: Performed By: #### 2 254017, 8040568, 3474246, 18532138 ####[address] [address] WBC corrected for nucl RBC Auto (Bld) [#/Vol] 18.7 E9/L High 4.0-11.0 [facility] Comment on above: Performed By: #### 2 039619, 9078215, 0735062, 37139867 ####[facility] [address] [place] [address] CHEMISTRYOrdered By: SYSTEM SYSTEM on 10-20-2022 Albumin [...] 3.3 g/dL Normal 1.4 - 4.0 gm/dL [facility] Glucose [Mass/Vol] 106 mg/dL Normal 55 - 199 mg/dL [facility] Remisol Potassium [Moles/Vol] 3.9 mmol/L Normal 3.5 - 5.3 mmol/L [facility] Protein [Mass/Vol] 7.7 g/dL Normal 6.0 - 7.8 gm/dL [facility] [place] Sodium [Moles/Vol] 136 mmol/L Normal 135 - 145 mmol/L [facility] Urea nitrogen [Mass/Vol] 7 mg/dL Normal 5 - 21 mg/dL [facility] [place] Urea nitrogen/Creatinine [Mass ratio] 7 mg/mg Low - [facility] CMPon 10-20-2022 Albumin [Mass/Vol] 4.4 g/dL Normal 3.3-5.0 [facility] Comment on above: Performed By: #### 2 661525, 5269144, 5504104, 50748787 ####[facility] [address] [place] [address] Albumin/Globulin (S) [Mass conc ratio] 1.3 Normal 1.1-2.2 [facility] Comment on above: Performed By: #### 2 853456, 3934082, 8200092, 96970208 ####[facility] [address] [place] [address] ALP [Catalytic activity/Vol] 99 Int._Unit/L High 21-98 [facility] Comment on above: Performed By: #### 2 383622, 3185640, 2187247, 19672087 ####[facility] [address] [place] [address] ALT No additional P-5'-P [Catalytic activity/Vol] 34 Int._Unit/L Normal 6-46 [facility] Comment on above: Performed By: #### 2 577832, 3123342, 8534427, 21526543 ####[facility] [address] [place] [address] Anion gap [Moles/Vol] 12 mmol/L Normal 6-16 [facility] Comment on above: Performed By: #### 2 065599, 0922913, 0890714, 26534640 ####[facility] [address] [place] [address] AST [Catalytic activity/Vol] 26 Int._Unit/L Normal 5-43 [facility] Comment on above: Performed By: #### 2 382988, 0394580, 0695713, 03587779 ####[facility] [address] [place] [address] Bilirubin [Mass/Vol] 0.5 mg/dL Normal 0.0-1.1 [facility] Comment on above: Performed By: #### 2 548058, 4400563, 7567403, 24511036 ####[facility] [address] [place] [address] Calcium [Mass/Vol] 9.3 mg/dL Normal 8.9-11.1 [facility] Comment on above: Performed By: #### 2 299607, 7195777, 0766628, 26986365 ####[facility] [address] [place] [address] Chloride [Moles/Vol] 102 mmol/L Normal 101-111 [facility] Comment on above: Performed By: #### 2 160282, 2401098, 8405725, 80986540 ####[facility] [address] [place] [address] CO2 [Moles/Vol] 26 mmol/L Normal 21-31 [facility] Comment on above: Performed By: #### 2 496635, 3076431, 0772966, 88579990 ####[facility] [address] [place] [address] Creatinine [Mass/Vol] 1.0 mg/dL Normal 0.5-1.3 [facility] Comment on above: Performed By: #### 2 704938, 6815990, 8620293, 78412021 ####[facility] [address] [place] [address] Globulin (S) [Mass/Vol] 3.3 g/dL Normal 1.4-4.0 [facility] Comment on above: Performed By: #### 2 188217, 2405766, 9565565, 40059638 ####[facility] [address] [place] [address] Glucose [Mass/Vol] 106 mg/dL Normal 55-199 [facility] Comment on above: Result Comment: If t his glucose result represents a fasting glucose, interpretation should refer to the following reference range: 55-99 mg/dL Performed By: #### 2 447629, 8327963, 7191977, 82879620 ####[facility] [address] [place] [address] Potassium [Moles/Vol] 3.9 mmol/L Normal 3.5-5.3 [facility] Comment on above: Performed By: #### 2 659359, 9194767, 2820931, 87454318 ####[facility] [address] [place] [address] Protein [Mass/Vol] 7.7 g/dL Normal 6.0-7.8 [facility] Comment on above: Performed By: #### 2 489726, 2789993, 3286597, 69370340 ####[facility] [address] [place] [address] Sodium [Moles/Vol] 136 mmol/L Normal 135-145 [facility] Comment on above: Performed By: #### 2 394101, 6647225, 1535759, 13705970 ####[facility] [address] [place] [address] Urea nitrogen [Mass/Vol] 7 mg/dL Normal 5-21 [facility] Comment on above: Performed By: #### 2 247315, 0018259, 4619439, 73613012 ####[facility] [address] [place] [address] Urea nitrogen/Creatinine [Mass ratio] 7 No Units Low 10-20 [facility] Comment on above: Performed By: #### 2 092222, 6800202, 3215589, 67726611 ####[facility] [address] [place] [address] Consent for Treatmenton Consent for Treatment [id number] #1.00CD:127 Normal [facility] Gastroenterology Office/Clin ic Noteon 10-20-2022 [...] at 2 (more content not included)... Normal [facility] Comment on above: Result Comment: [...] vinegar, hot sauces, and barbecue sauce. ? [place] fruit juices and citrus fruits, such as oranges, mynor, and limes. ? Tomato-based foods, such as red sauce, chili, salsa, and pizza with red sauce. ? Fried and fatty foods, such as donuts, ukrainian fries, potato chips, and high-fat dressings. ? [...] General instruct (more content not included)... Normal [facility] eGFRon 10-20-2022 GFR/1.73 sq M.predicted among blacks MDRD (S/P/Bld) [Vol rate/Area] mL/min/{1.73_m2} Normal >=59 [facility] Comment on above: Order Comment: Order added by Discern Expert. Result Comment: eGFR is race adjusted. AA=. Performed By: #### 2 216384, 4210009, 9213926, 98263948 ####[facility] [address] [place] [address] GFR/1.73 sq M.predicted among non-blacks MDRD (S/P/Bld) [Vol rate/Area] mL/min/{1.73_m2} Normal >=59 [facility] Comment on above: Order Comment: Order added by Discern Expert. Result Comment: Computing Architect mayra kidney disease could be indicated at eGFR's of less than 60 mL/min/1.73m2. Kidney failure is indicated at less than 15 mL/min/1.73m2. Performed By: #### 2 [id number] ####[facility] [id number] [place] [address] Auth for Release of Medical Recordson 09-27-2022 Auth for Release of Medical Records [id number] #[id number]:127 Normal [facility] Coding Summary.on 09-26-2022 Coding Summary. CD:[id number] Gh0bWw+PGhlYWQ+PE1FV ROjM41zvQDxtG5qH7VCN ElOSywgQVBQTElOSyIgb xWiSM2weYTxJSPf IC8+GZ5cLRKvTkodyTSu v3T1rHD0Q94tvo7cJNom kUD1QIVoPyJihtmuz7fd fDi6EMaqMnimNnYa KDBoiT02HMQ7qS08Li34 vEXotQZgv9uvsVi7DqHq MFEhNVE7aTztHIhnj4Wm BVUjW62bcHOat3H1 IGNvbGxhcHNlOyBlbXB0 mV1zYMorfwmgp3vonndn Tqk9hq98vMNeb9E2gSK3 T5OrorR7YWOudCUl MulkgREOwY8xiiiwu0cw trxcInCvMQFgEHb5BKw8 APNdzZsqZbMeLL94XWJ1 XLQzskDvK7EsSSZb vYcaAhE9u8U4Ks5QU4JM FgqrR8FHGIMRKXzzpNG+ IA45rz74I6KuIdbvGwq8 OQLbZWT3bSV0uA4z CFSfGBteg2P2uZP0S4Se tySlya4ty6ylFHIpOHpc D25bvVNxv9M6IUHxtFN9 GTJwrZrwAvGsxN79 Oyc+ZQIqqXtuc7KgZoxl v4ehv5evpKr5DcdeSRWw ojIhnQmeRJF2j3AgKl0m FCVxxEF8cWG9eZ5j GoGyRtN1VRqlT345MuJy tQZhCldjH43cU6FzoEQ+ DFTgBnr8FRWmsXqkGY5d A3XeBHUjiqwvzOGf eUrsRZ0qHCOxqqyeFLYc oV4mSITgE7f1XeOiEsS8 UCvjA5ElGYElarzaSx57 mO6hUaMcMyG2HEof I9EazoH6WGFrgQQoSXbv YKP2V62sm5D8OTRdFRYz SKP6lSF4hF4nmPnqhgwq bGVmdDsgdmVydGlj WPgvXDibE262KKZskXqb PkNvZGluZyBEYXRlOiAg MDMvMTQvMjAyMzwvdGQ+ DCPiZOO5dGzlDCTy gRNbKZbvJh7siUblnUxa SN4jLYNrooqeMZTnsB8l AYBhqKLuhJcxBP9aETIv pvwib930XsOsEUY9 SXDuoXAsN0QqyK9lDtXt TGPgVYEyX6UueRJeJDvu G014JXnaRpD5UMQbeuJy A8IzHXTveEyeNcB0 r2C9Jm4Bd5TbjtwnM7Vk zHJaAhKnTlzoUQd8N9If PjwvdHI+LO29KWBoNP97 JIr0JFN4iFqfTEzo BMOnT5QzxQ3gVcCuISTw ZGRkOyc+PHRhYmxlIHdp ZHRoPScxMDAlJyBzdHls AN5iBm8sAZHjXCZp uBliqHTfBbYny6qfZTDq IIyeVI7swZhtO0MwjGT2 ZZNzn9m4Nx53G46jB0Sn dXA+EVFomQP1hBI3 uO1sTdQwDeX1LNwfF513 XeIsbKMuNiuek2dcz0lm eLb2EhN8WMQmkbNmaBcl EAL0w6IsBj78G20u IHdpZHRoPSIxNSUiIHZh zQyfua3mvH8sWb3+PGNv tKH9xEJ4zD1sYtFkSvP7 YMruT378ZbEojJTw Nnvst1edw2kbbNf4BkDh TNRfuePleLqfCSF6i8Sq Qw35B3LfqXnmh1EqRjo4 zl71jBRiq0O8lIW0 I2JzVIKuyuyvcGOuwYqk BH5tJJMvprmhPQRyiS3y BTFvL5t8NqDwByA3LOzb A9ObgnM2HGNyjWZi SWUokEVKcW2alogzi3xm mudoHdRpXYZyJWm0VYm3 XZJiuEciAyMdQCR7EtI3 WBA0vFCqdA8ujKqs alotnH2eVfz+OAM7kEHl bZJIYA3uCseipEM+PHRk NLT8ePanPUqpGQMljE7v WUTaA9d7ZjIqAsW6 EPniB6KuifV8THZyxREt RONflBYLhF0nqnzhf1zv pqvlBtQiNFPrPHm0SWe5 LWFsaWduOiBsZWZ0 IkQ7EOA7yRYmuF7vgVrr iszynG4gAab+QmlydGgg WML8EZz8H3WuTfb9TURm aPwvXM7czYCrXQnd Qi8xxLstmWuyYN7bNWAf lcdgd152VlJij2jeDNJf gJClDKxgVHN7G90bs6P2 TEWbHMZyVFG2rYR4 oF7dnXpcwuoxxNNjuCpz urYrqQsrBNdpXNxoD752 RGAhzUgwUjQbFJb6I3Ii Mwm3KXTtqLuqHI5v jUYvIVqePm9nsFaroSsp TP5hYOXhingnm202QuGa h0tpRADhtGZmHFhiJJA4 N10dz4K9UMPbXMLu RHY7sKJ0fW9hhSbiuriv bGVmdDsgdmVydGljYWwt COscK861FLVihJqoHjOn rYa7U7NvDcs7OBTs tMzaQU1gyJSaKMfqXa7d dCwlfMnzSU0uKESseqvy t941JpVym5byLIRzsJNq AAcuBKI3A53ax3V3 HLRuLXBoJYN1eCF9pD3a bGlnbjogbGVmdDsgdmVy gBxlCUfrQEexJ855EFVm cDsnPlBhdGllbnQg ZFliZPq0S2DaRzlzvLK+ EL38KPEwVJ27xRRpeERv z5flnWe3OwVcKCXeKPY1 zGfwILcfn4OtRWBt X52ubQPfj5A7SJGomUqy aZGqUhKhkEF2rG7pYVzm ybyim6ozeonxZldzo5xi kc70rH07R81sXDlk ZHRoPSIzMCUiIHZhbGln zi0spZ7xIj0+PGNvbCB3 nHC3jH5yWDXdTmQ6ZQhk A290YyYeeVReTspk t0qum3craRt6WdR1OWKf dxNzlNgdBBW2n1TjKz56 O45bEJahVACvISCiIUCn YWLmdPhqku1tuG3k Ii8+FMNizBL2qYF5oV6o YzUmKsG8ZWpdS163GlNl pLRqCzmvU99xD9KtpSV+ LHQqFdz6GPLgdWgv DE4jnWTaFJvtOs0mHWL7 EjEuFoVtLAwsG6ErYGJr ypnihlcfqTX1BYUzBTKp yN60Jm0axYcoZKUa bLXYpX5mwdnzy9dsloeo VrBpDRDvZVa8UKh6QHHt rKkcQbNyJKU4XaU0OXQ8 iUSaoQ8qeBiyypvf dB8eX4CzGJZrmwksJd60 rY6jBxPaXxH6DRfkXdu+ Fv2XQFPFI9bRBHDORS2X QVMgRDwvdGQ+PHRk KXK1uRtyGTjbCVWifA2f HXKoK4g7OlLpDoC3LZff H7OkTSZymtzsDs74rZ0h WnToYeJ4TBzzK4Lc wtL1LXSryIToNJlrASS5 K70hz1P6WJBxEMJdDME2 rIA9mO5paMzhufemwDPj dDsgdmVydGljYWwt RQmiO602LOBvmRqfUnRb XvN4PcZ2DGB8K7PiSdn8 HFVpuLrfPM1xtIKrBCuo Ky5xdZyuyWtjOG8j PNWjuupcIBXftD8aRXUm uPCjeGtoYA5gIVYxiwqd y760TyRlJYN6KOXjxRWj F2BgpX9qCwXhBGRu IYSrP5GbpOYxQZxzZ400 MIwtCaH6XFNbypSzB2Yh VAMfkOddUvH1t5U8Sd6e NiBZZWFyczwvdGQ+ SWGcVPZ2zJnkLElfZWTz fN0rESXmF2s3WnYaGjT6 KSghB9OcODCxxvykMb03 kT4dOaGqZzH3IGjj E2AybtP5AABzzIFgDVly CHB5S01ty5J7PSRiZWNm XYE2iWA7uH8olEcrkrna bGVmdDsgdmVydGlj CMrtUDulG291YDGwjBes Ox9itNM1U2CsZup8MANc fKfqLO4peBAfOOteMm9k pBlegRnbJY8sURWx gjkiXULrpH4kTCTxsRSz eFifPU2kSGMhdbghd512 JgZdOPH3XYZphCTaN9Yz vE9pKfWtIAEcKTDr W4EieLZqZBkfX848PMyk MuR2QZXunvZlL6StUUNr fOusMzX0u9Q1Uv0UdYLu EMVgDJ60MD58MY12 U9CgGhfbkFHppOQ+PHRh YmxlIHdpZHRoPScxMDAl LgOynYjqYC5aOk5aVPRb LWNvbGxhcHNlOiBj i6lrXCDrTUjeKL3siJwi L4RotKF6UTYix2h9Uf06 K92lQ0PwaEI+PGNvbCB3 xHW1zX2sIyUeGzM8 RVxsA085QsXclCPyBspv y9ijf6rdyFs6RrXoUNVg erQgcDflZVR4n2XmTm61 Q91uCFzrLLHqJEUr OPCiDAQmjZdfyo8lnF3w Ii8+QXLreYN7tNU5uX1p NtIwNeD8POceN127ExYt sYYxGriqF63mS8Uk dXA+ZIAaNzn3GEWyzDdq BZ2deJSlTCtuFz7eGXU1 LyAxNhTxMAabB1LoDGHx xmxxnlsrjCZ5ZUOu EANzmE85Ra0zyKisKy3c SXTnCWN6AOUkiRLpH9Fw bQ4eIvNsRBBhKOCbC4Uq lGRdWXycP265IBpq FdT0HDFnodXxS8RcCNUm nEgkZcR2c6L6Jb5XqJbb mBDlIB6zQeCcXNa0U9Sh Ebd3YRPysXwqZB2e sKLpGLisQe4lgBcllGnv GJ5oZECcldxkd264AkBp w6qkRPTsnMDnXFbkMNV5 Q04ri0A2WDVxIGPy JHD7fQX8vH6qfBfkapuf bGVmdDsgdmVydGljYWwt CArwZ328KWWqlClqVeZB Uvj5J2CeKsg5HOSg lHgeEQ2hoDPcOUoaWb8d vSlphPjrOI9jPICdxfyn b288JfLoz6zdEEDmuIEo SOieGEU9T07ex5G0 UYAqPMJzXKZ5vXB8jI4s bGlnbjogbGVmdDsgdmVy gYhvAKejLYodN581UOKl yPswNt0LInr6A1Cz Kvq1HERprDxpUW0alFEo SIndOb0xjMvolCsnKB9y XKUhoynpd552CsKqk6he IDEwcHQgVGltZXM7 G01pc7E1KATaOKKiFRR0 vXC1vP0aeKstvxwfyEOb dDsgdmVydGljYWwtYWxp A326UFZikUnfImEv eWVyOjwvdGQ+QJ82nz24 O6UyPyiaTax0XLEeLYG0 vTD3dU1aIEKfUCvkn6A0 xSB5I7CsjsObge6l b2xs (more content not included)... Normal [facility] Postoperative Documentson Postoperative Documents [id number] #1.00CD:127 Normal [facility] Physician Orderon 09-15-2022 Physician Order [id number] #1.00CD:127 Normal [facility] Consent for Treatmenton Consent for Treatment [id number] #1.00CD:127 Normal [facility] Coding Summary.on 09-06-2022 Coding Summary. CD:[id number] Gh0bWw+PGhlYWQ+PE1FV HLcV33mkCYotW7CV0eWS G4UQHQSJRJKWD9QFG1vo UU3ZHqbE1SoklBt MewxlSXdAZ45QQl4NIF0 eObsTGqhzY4laXOdG9c6 XwZkQJ61bL91THtpPQSu UvY6LtQblxiolGXa Q1ssVsMapVStVcg+PHRh YmxlIHdpZHRoPScxMDAl UcMvfGsdRA3yVv8aVNZj LWNvbGxhcHNlOiBj o0rkXSEmXZjkLY4juEek O1KdzRQ3ANBoz2y0Yf68 dHI+KECsTYU9mThjEPlv q052UyRww7oxTIA1 rPZxQOjdQXX9G44nz5P5 HWRoXZPhDZA2sJQ8gG2g sNqribyrX0DfjVYqQmM7 VCB5nJXooV3ftCfs rfsxwH3wSqe+P06FHK8X QTXWXH0BOtn8V2WmLgfh dHI+RV87ONAgGX32pYTv dZUir7wwvAz7VtSt YSFzQKH5eKqnGNljt2Rm UXKoL94gyWJax2V4KZXu tJwxfLVfDaUtdJX0kC2o SOrvyjavc0yowwig Iiyai8ivli57gJ27J58z VKvaWMVbOEI1TTIbTVEq xDpvxj3uyE0uKc1+IDxj g5xlv8oohZz3MaRv YLAoyoPksKweFTR4i9Il Hm41O5VxrEzmz3SpSmo8 dt60xOQzb3S1uSM2KDac YBTywQ6nAVswKuK8 VWHzSmLuxK64lWVtJVtl Qw4pzFkdrKawMG2pUCMy zgjuBNGamW4oMDTcdWQk xSviSV3oWUEpiazt s498ApKpVMF4NWTgeWTd X9MlwK9qMcWqPRLkZFMm T6UqoCLjYUiyD555KAfv NtW3TGJngwJdX1Yc OAAzfKarBuQ2i2P6Wh8G v7GukqvhOJS6RGbnLVAg CtBnVaIfZaN6V9DgGio4 WXYtmSpqCI4zB1Qx OFTuxiejodadgZP7JEJj WQMvxV01oUDwUJqfXg5z d7X9t407YLGyQUSbrV08 Or4tlBcyDWUzfRZN yA6okwyju4wortawYqWh WVXdTOb3QUg3ZOMxyBlq IqZdQAC3KcF6KIK8rUBm bU5mzTyeslfjzY7j Oyc+T53lxC6nHFW7SOH4 xeomMEBglqMnSU23AQ17 C9BgYbghuBWvwZR+PGRp caZixMroHG6kCmWm u8gwy6ZxMMuyG1NmUVXi HVunSem3LLEcGLL5aUC9 iH8iYLXoRVtus1B0xJX5 P0AborBeem0xu7kx ZUOwWGkmC06unAJpk7L7 YLBxwLQ5EVAjxDeaHqJm kK41Qxm+EZBngBgaj0Qx Ixklr0zui0filHo2 IjMwJSIgdmFsaWduPSJ0 g5AdOc89E40rCDsiEPDk FUKnVAAbBYOyuRoloc7f qE7cVw7+PGNvbCB3 tRI8kF5lIACfVzT6NDwp Y698DrPbeYCeWlwgy8tc t6lchTi1NnFqHPIuvkYv gStnMAZ4z6TjZl25 K10lOIqoIYDsSOZtUPGd YKVusMoknv8syO8oGd1+ DD7pg4kand64nM77yPN+ AENvHVE3nJwwMDsx GIQlfQ1aBBuyWdI0ZYXg EjAirM75pAUdQRslFz7q dBqwgTudLN7xLQJbkyfw n300OwLpm5mzIGPg pSFxXSzfIQA6Q90ms4O6 EOShEYTzIVN9mCY0hU5b bGlnbjogbGVmdDsgdmVy uHtoRWfaSXtnK486 IHRvcDsnPlBhdGllbnQg KkOvUUx9O8FoPhd0LOQc gVmkFH2czXDiFUviQz5w qPfglRlnFH4wYAKb jbdbr435OoIrm8zlJZTk qRRcQNiiWED6O06ok1G5 TNFeTXNcMVE9ePU2oU3x bGlnbjogbGVmdDsg peAvnGrvEAdnLNbjB081 IHRvcDsnPkJpcnRoIERh wMQ1AE12IE21lKOzb9S6 tEH0J3RpDSHyeyqt hcpdvQY4IJIbTFXziG11 Dm5zwAfjJo4mUBJmZQE5 BVPpnXLfP7FwcA2sKoVk WQQoKXWqT1EogFJm JVspE670SFudLvB4UIPf hxYmK1QoUGSstUnzDuJ2 h9S2Rc4PC2Z6TB65VY26 dCZxn6B8hCR8X4Vf FDPjpwaymshwwMI8WUEr SXSjqO65Xs6ukJtrFf6f MQYxNTY2PESyvCTxS8Fy lO2iSlLmCISpXPMn J9MbuCDrVIdkM875YVzk OfC2KUJsosCvJ1ThPWZb oFqmXrN7i8S2Aw3ZFJu8 HY87HP80eRCxn1R4 qDK1M1NjPXBhbidpuvst aWE6KJJcODImqN01Gq5i fCicJv5bZNSuGQQ9VXYd zLMrA5PfoJ6uQvKk KYBnHUBcU7VsgMYlKGsc V356PVhrDbB6VEMiywHe E8AyPEXgtGnpTtC7o2M2 Hh5HDTHuCP98RFT0 oFL5SE37YD81I8JgRxrt dGFibGU+PHRhYmxlIHdp ZHRoPScxMDAlJyBzdHls CS5iYu1gPRIuSLQf nBxzoNJkPcKzc0xaLCIn GDhpSW9jrZrrS3TtgNP0 VEIue1n8Tz48R21mJ8Oh dXA+DTDhxYK7aEG6 eF8zMoRhJaX1VJxuP072 SwFqqATfPgdij0zhh4du xKn8TwP9VEAswtMqcYkj UBT6p2UeJo74F01z IHdpZHRoPSIxNSUiIHZh hGridf3toA9xLp3+PGNv mOT7hPL0wH3rCjHsCaS5 JSveP196SbNogDGq Zkteu2zdl6etmMf2NlXn IWGfjaVfjQcmCVS9a8Xp Zq14V4DyzOfqj5HeFzx9 ap00cUAwg3S5vNY1 F4NpHAYcrbzdjAGfbXcy ZF0bVXHhmlzzYFUixE2s FVSdZ0c8RdMnYkK6NOvf X4DmkxZ7KXQcmABj ROvwBJK1S16fq8R5SEXi HUCbWWF4jRP8kN2jjXul bjogbGVmdDsgdmVydGlj ODtsWRxcH692HCEv qKcsTWLnsM0tIUGlnSDb mFitEV4nZROltqpaUkYJ QVRSSUdIVCwgVEhPTUFT AYC8G4DeTyj3MYRx dAdfQY3uiAHqVMuoYt9u jDbpmTziWZ6aJLXytsbn XLGgzP7iQFDqfBMdnZkt XY2jOKYoliilz204 ItEfDNQ3SKUatMNaC3Ea vG8pUdKqSROjECDnE7Qh yCKnAYdvI786UNmmZhM5 OHUdmeEvT2MtEVIv ePrpBdE6e8I8Ui8aAg3s LO1lWMf3QX48GZ91aOCg g5P4zFM5C4ZjIQMvttum gjnfeSD8FHPvHKGu dA08qWGpEVwtJf0zt8A6 h934GUCgKKZxkG66Is8l nShaKHUjlMZAzX1zipvm l2jhsbxbTdCdAHTe DHn7PHl5JRKwzPdyDiTk UEN1WtL8QFJ1kIKqvX3g eIwifzsqtS4kQjb+MjYg WWCywmH9P7DnMue1 PNMhpShbWL6ogRQiVCel Ue1icOmbzNtzPT4cGSXq lqjiOWXtrP4vJGLdnCLm uGvkWQ0xSHUftais y194GhTzHZL1LUQztIVo B5AmvW5rKaUaOFYxZILg L1YttZUpCVlpK894IRct RkE2JKBljtDcD0Xt RERitMewFkB4y6B3Xj0V RAizFG08BQ43bDNlb8P0 oUQ6J1IlFWVokhoxxmgv yVW5ANVhUGDytU27 wGPcHIqoIv0tl8M7s628 UHXgCGLekV52Mp3okXtx YPShkUPYkL1fphmkm6hb cjogIzAwMDAwMDt0 EJh5EHFoaFxwIkQuJWK9 SrN9CRV2eJMxfM2dpJek erwxwO2wJbn+C7P5jCQ3 aWVudDwvdGQ+PC90 fy25E8KzIzsnNyc5TDFr ZLJ6cAZ9nN0rFDRnBCdn k7X9nAX5K5CwydAwin7b i0usBSZgHFvbQ56m gJIsx7U9CQWzuFD8INIv xOhjJcNpsD44Edb+PGNv nVzkn5TlKhwcz2smj2kb kNi7LbOjHFGbhbQv oOfjGOJ8v0SdRe78F21c IHdpZHRoPSIzMCUiIHZh pCrsqp7vpR9rGq5+PGNv dHC6fLO1lL9wBpOz FfA8CDgwV130OvZofODk Tufei1eif9ddrIi0YbCf TVDatvRpjVruDYX9b6Vh Id37U5AjrWkzc7Nt Knn6hb65mAKrz2V1pRJ1 N5DcSDLamfoanFGusCkc GZ8yUGRgirhfLTLyuT5a IFGjQ1n5RsHvZvO3 GZayD5MhfqR8SCDqxPBs MXTbwESXzH0jotjxi3ho mcfsJsArQQAxJBq1PXd9 LWFsaWduOiBsZWZ0 AiT6UAI0uQMypG7jsOew ljczfB4mDqv+EHc9h1xx eCHeOI1tuIE6HD28ZL58 fDQlx8M0zHI4R1Nj RRXnjrxjhlrzjJX5TOPy HIJlhV74Pz2xvCmxJf5d UXThYRL8IYMoaIYwI0Ge iZ3rZjYgDVAaNNDd H3XihNNrQGcbX117TXsm TvO4LPUtutBpU3IzXWXg uHrxLjS9d7L7Dj7FDM88 PF48UR37kJNwx9C1 bUH3E2PzNLVqhbtvjmrj bXQ8HEWnLBQlmS84Ya0z fFsvNt9pLHLdPLQ6BMHx oYIdT1JqtZ2wCvIh MLLkQCSrG2AbjGUaQPdk I649OHinWbJ3YTGdvkZw J7GjZZQuaIgqPcO0w5G1 Mm2UJg66JR33VQ02 mJNxg9S8kAO1A7QkLPRx nawqrdostEH2OZGqMNEv dX05Cd5jwMnbXr6yFJAw HPG3YTKcfORhO8Oz dK1hQaRtGMDbEOSuP7Sy qOHbKKfvK517ISzsHbC3 QKYdkfChQ8AvWFRlsFim QyD4k2G2Ef2YMUsb xip9A3EtWmrdgGV+PC90 OKBcRL93ePTckKPbc5bm fCt2XaZtTYBiCZJ0qFpv OLpxt2HxSBCpY40t bGFw (more content not included)... [facility] Consent for Treatmenton 08-17 Consent for Treatment [id number] #1.00CD:127 [facility] Consultation Noteon 08-29-19 Consultation Note [id number] #1.00CD:127 [facility] Physician Orderon 08-28-2022 Physician Order [id number] #1.00CD:127 [facility] Coding Summary.on 08-25-2022 Coding Summary. CD:[id number]:[id number] Gh0bWw+PGhlYWQ+PE1FV AQkU53afENznV7JK9eYY X9ATRUMAJAGYY1FJU9en VE5UQzwE7KmkzZx WmbblNPmLU82NHp5WBP8 bLubGEzmwS0naATaA0c9 VsCgXZ30uU73LVqfBQTe HiY2KyJxnfvqmXKr D5tzOoFywDDbIxo+PHRh YmxlIHdpZHRoPScxMDAl OwQwkTalMH2fJs5kSPIg LWNvbGxhcHNlOiBj e0kcVQFrDGbaGN4vtUsz G0CtyGY7CUUbn9w8Vj58 dHI+HZBnOKV4sPslVVlt f544MvPca7loZZU3 sEFbWTpyVTN2W63qk1H0 CGUjYJXsLLO5cKC3dH7z jEziuwkqP0KekKAyUqZ7 UYW9xUXjyX2nuUjt febvyT8hAlu+T80OLI4L IAQWEL3VRct6E0LwIave dHI+LP98WEPbON80sYXw iFXqc4skvDz4PlFy RMYcPQD6tFlfALint7Ob IKPfI55vqSKbc2D6NKZz lJfimSRaNaGhgLI4aA7x YAcmuokrq4hkdfpp Oshqz0tdwg82nF15U42k YFhaPUSbQQA0ENZuMZVs iZpvfk0toR5lUd9+IDxj x8pop7nexAf4EpNy CGJmskCajEbeHSV5e4Ot Ca95Q9ZtzLhyk9McEzj2 in12nVFwc9J8mYF1QLfv LIDwpV9yXFeoXvD3 NJYxSdSpaB64yRIzKAtu Rw8ziRikrBlcAY7tYAKx sgyaCAUhiL2iZGStoWIp dIraLC8yJLQgxdef j109OyEoRKM5JSBezOHn H9XwlH0tTwNxMPDxICBe W5ZioERxPNtcW493PUlo RvS1FRGpnbJaO6Di DIBhwQgnYsQ0c6L2We4N e0KmangbOKT1QYbcORNu FuUcEvDvNkR1K9OiRyn7 YHRzhFlhEG1lL2Dn HWKnbsbyghaboNE3KHRs HXBcbP39bVEiNOzcZv7j a1K2g265WXRxWAFfcZ15 Yr4mhNvnMKXkeAJJ wY2polvgp9zktwxeDuAi FHTtXXx4CGy9VADlmWxh KyIqVXB9EnA9MEV4bIQx fD2bqRooipbanP4a Oyc+E28plP9jCPC0COY8 zwfnGUYrxhXtHU07MW43 Y2UhFjprkAWpcNT+PGRp lpJfyThaYK6uMnNa l5bjc5UyZNkqR8SbMIVr MGsqOor1CAUrXXF4wKK6 yU6uLAAyRYhdd6K6aTV8 H7WjauZlcr6mt7fl MXVnFVfzX13xrWZiv3A9 JRElvMQ5IITuaMudBuMn cB43Ofp+NHDqkUzrw7Uc Dqdwq1woi7kyoQu1 IjMwJSIgdmFsaWduPSJ0 n1ZmIw00I64aJHhzAXFe ARPzFUQqOAJgvFlfeu4u kI7kTh8+PGNvbCB3 eAE0wE1qEBQxInC9PYnu O874OoDxsMRsNnprn6cn v7dflLy7FcBzBZEoxpJp kJzxDQN0o9WsHw77 N11wVSbrXYNyFYYoICFp XOOvkTwbxn0neF5bKi0+ PU1yg5fqqu51lX10tHR+ FULtMHG3qUwqZCpw JYCjdS6bFEgdDrE7BCKc DtYuuR31aHYbUJnuZl2o eLriuYcvVF1gSEOouond z014AtAsb2bwZPCy cAGdGXsrGSE9E92hk1N7 PZFhKCRiHLV0fPS0nZ0h bGlnbjogbGVmdDsgdmVy nLuxYGzmMBuaT901 IHRvcDsnPlBhdGllbnQg HtNyBYi7X6LgAwy4XAUy aTubSN9hgYIqQEpvIq9v dVxfrVgiGC2uVJMw kyybz394YnFsy2gySUHw xIMzIUedSZO5Q98lc9T1 XUHxWYKhUTN3nUU1bY2m bGlnbjogbGVmdDsg syCmaDjkTLgcBRdxN754 IHRvcDsnPkJpcnRoIERh cHN3RA72FB58uVKxq3E2 dDE2C6GzELJjhlsd iksrfVZ3NOXcVHDhlU54 Ku6exMazQx7fVIXxYNQ1 HNGrxXZvF8GtoC4dAzLy XOJlVOOjO2YfkSAn YDhzF719PZhrPuI2IPAm aaQhZ1TeFVVosTddDbN8 w6Q4Ws9DD7W0UA15UH34 gPGkd8T6jNE5E9Ob NQRpctztossgoEE6RHXp HAHzaJ97Hf8toRbvEb6r FXChSMF9QLCjbXEiC9Bc dI6gKaJeFHDrLASm T4KweWCaCWhmY669ACoh UuC8XEZwlrCkP6CpMBFj vCprGuX0m3H6Pc1RETy4 AG06TX54zESdc9L3 eIM2P7EaTAHjktbztmrr kJR8PFGwECPmoX54Tq6g hHguTc6aCBBoBRW8SZPd aIYfH4XipC3uNxVw TXDsLXBdX1MauYNmZLjh U426PFisRzY7MOYajyVk Q6BdTUQkuCusWgJ7z6G2 Gb6SSPDgSB20OZQ7 nQX5HH73HC09B4YhWcmc dGFibGU+PHRhYmxlIHdp ZHRoPScxMDAlJyBzdHls NC6yGo3pJFJcPFRg tZrszUDuTjDbu5mfQHOi KVagSX3edIvgF8HsfIV2 IIAog5m8Ip31H85eF6Ft dXA+QVQmyAI3hUM8 mS5vTjSbHrW8ZKahW224 NuGxoYNtFaedl9ali7zl mOx3QpE7VUSksyIddJkz YUM2a4TiOh04P82o IHdpZHRoPSIxNSUiIHZh fChoxv2meR1kCp8+PGNv jHC1gUT9lW9uSdAnJyR7 IUfaW837CeKlyQDc Xneig9apg0debVc7DcAn SOWelpJsvDntMDV0g2Ak Uh11P2OxrEvjf5CaIuw2 nh69kGWoa6A2mKZ9 O9KyALSrnnqsaLHoeWdt QN5jESHbjrteASTxtD3f YICuO5j7WcDlIqD1QBwn A3SkrvS9LRGgmIKp IWscDTR7V05yz7Q0LQAh ZYLcFNU4jUK4zZ9diWyk bjogbGVmdDsgdmVydGlj RVxxGFflI656IMSh jQelLQGaeP1yZSQpmFFp eNzcNN6fGYBmbyuiKlIW QVRSSUdIVCwgVEhPTUFT ENZ6C8KwGgo1WNVk mGgkVE8hiNBkFKhbXt6f pStorAwwSI2fWNQjjvnk FCVieY2uHHDeqOLwtEpy CR7pDUEbhtsuy214 JeDmJSM6TNZvfTRfA1Tb qU5rNlLzPKSuSQBnU3Ue wEDjOCsiO040BWthTnS9 ZMPpmqSiV9EdPNVv fXmrGqO6n5G2Zy5tIc7h EO4hPPn3EL22PX33rESw d2V6kZR1D2SwOPGouzjp cxaglQE5UVWoZAPr bU05zVRpSPfzOy4td4H9 v222ACYmBXXzlA22Xk2u oIdfATMczXEDtX0ktstn n6rkqalxVsGlRHIh NJp4HXy6VYQjvFjcTyQa RUS8PaB7ZLD8cEGteX0q yXqscogukA5fWhg+MjYg RHKfllC0H0HuIyj4 OLAtkVjuUW7oxXIyJEld Pi9ktLrwjGvgKO3pFBPj dueuSXCnpX6yPFHmiZGm nLgnAM0bHAUitxgh p122UhEnZKD3AVZzwFIo N3ZirG3qNiVtXSOqJHIn J4XzrCWfGUghX474NCdx IgL3LZVbreGgE4Md DNEuoGgeDtS7n2S8Ak5C IBnpWY60YE72vXJaq7P7 hYV5H5KiNJWkqhrhgirm yTU8FPKhELXdqA90 qSPoGWgvVc0go4Q1r471 FKNbOOLwoT85So0ewBum JKZwpDZQrR8heycxa7lg cjogIzAwMDAwMDt0 EPv2SCLxaRedJmKvWWB5 OmM1WPD0dFRhaJ1odOhw itlroP3iIda+I2E2hKV0 aWVudDwvdGQ+PC90 vd72E0YeEignRqe3UUGn TZE8mZV1eE3vHXDnLFqz x4Q6qNI4J0QiowCsea9y d0faAKZePQiwF60z rGSlq6B2RFWsnTI5YDLy nCbtJnCacZ53Wfy+PGNv xVird5KwKwvqm0kcl2yu gEw2DmHtXMIzlkEw bDlwBOU5t3CfWw55T37m IHdpZHRoPSIzMCUiIHZh eNpakk0rcD2wIh6+PGNv gXJ5fOW1yT6rFhXt NnS1JOrdE502QeXcsWHg Qznrc0lab6itoKh8EnHd RPLrgcJvlBjhHIM3q6Ih Si44A8ZftYrlf0Fv Izh0nd39xNBxg1X3dZD9 R1LcOEZypjgbcNYyySnk KT6yYCIuffeuYEJhfJ5l HCLqK0x8SaZlDdK1 RGrhX3JrabV1YOJcyIFk DPEpgHOZeF7ydllas8uk qftaAdQbJOJhQDy7IMu2 LWFsaWduOiBsZWZ0 DaA9BXN2qMSwpF6krTki rvebxZ7uBuz+AMx7l1yd fXCsEU8ytFI3XD43AE86 aNBbu3Y8qSK2E8Fy CQXlmwjgzwomgXL1EPPa THTkpZ41Ty7naFspKz6f EKVySWC1CAVgwKWyV8Im uV1aKzNxWULwSMKr H4YjxDYnKAwpH721XCoa AqG4JZGuhqCiJ5JqCBSb cJvuZmV3e9Y8Nh6DQA66 LD74RO44wEJgr0Y1 eUX9V9YeIZVdcwekjjdm pAQ9RUFeZOUrxH37To8q jLwuUr8cKDZyZFX5FPFt yOQzD6KfgJ5hQfAg LXGbCOFbR1ItcSKxYUqs E839UIwnFlY8WBInmuVm W9TuGUCvjVtcUdO4d3G2 Mn1BNn87EL91CH50 iVWyc5O6nLQ6I1CsOQUv wtlecxsdkWQ0MZVjPXKq zW14Tu4liSxlKw1yMPNp SDJ7MKAmmRTfD3Ru pO0hYwKjVVQiOUJyS2Py rMHlCYtrL769DHyxYsA6 LVDkmhGbK7DyDGEidGdu RoZ4r9Y8Vm6MXZye zli9U0RaEfoeuXB+PC90 SZPjOD98mJWigSPon5zu qZq1JgCiTKDpHLM4uGyp EEgpu9MkXOKlK82w bGFw (more content not included)... Normal [facility] Consent for Treatmenton Consent for Treatment [id number] #1.00CD:127 Normal [facility] MRI Knee w/o Contrast Righto [...] DORCAS Technologist: CARLA Technical Comments None Normal [facility] RAD - MRI Screening Formon 0 08-21-2022 RAD - MRI Screening Form [id number] #1.00CD:127 Normal [facility] Coding Summary.on 08-17-2022 Coding Summary. CD:[id number] Gh0bWw+PGhlYWQ+PE1FV CCpC26sfOVifN1PG3mFE X5BRQCYNLUZLC4UNL2tw SV5JGitI3LqwsJn SygpsNZnWD01WOx5HQS9 pHcoJAzosY3wwVCfF3q6 PbRmYU98bS71AQsjFSJl FrS4HjJudgrrbCOd W2kjFmFzxLKcJgd+PHRh YmxlIHdpZHRoPScxMDAl XoMiaOfmIT0gZu3sPPDw LWNvbGxhcHNlOiBj r7aqWIHlUCfzWX0hsJkx T5NozJA1GECnl0f9Ng87 dHI+MSNaVNG0gMcnXTas y540ZwDpk2ojJGK8 pJPlXPvkLBE1G06xg8L6 FKMaEQGtYER3vIP1iS8r lBfotmwkN4GkyHHbWeZ3 SFR1bEEfmL6ssLse iyrlcW7iBtw+K58VLR1V KZMOQV5UQyv8S0AxEixk dHI+WJ74VBTdFS40jULo tQGsw4opjGu0YfKl VJUwXOO2rEjdDZqqm5Yn VLIgW78lkCTco2G2MDLu rLdbvTWjPnLckKX4tQ6n PGjwrgvub9jgeztb Tvchc3oszv46jN41R74a WWwhUKShPMT7YSYbLOQq wYbqlg5duR9tTw1+IDxj r7hub7gckMz5UfAi HDYeniFafQgnZCM5v6Rp Es77L6AeoEchm6QfDzi1 hx84aULcm1L0nTV0DDfi FUGzlD9cWJzrDlF3 RNVaQlFofZ26tTAtARpu Hi1zpQwecZyyXI1zVYSe ngxkTULdrG8xDJZpsCGl sYjkQP4wHVYccrox n082BjMxMAU2XVKzsKQi A5PduA5lCtOeOQBjJSHy R1PaiKAtCFnoY797IFzo ZiN1HGEslwRgH3Px ATUdtGppPyM4f5E1Vm3Q w9YdmjlyNEU5JLpxOIIh LoGzYzBnNjY5Y5CrNwv6 VZCbuCbvFM1yC6Jr IPGhdefccxhvnLB4CALa TFVznG33aJHfCVjjFy0m c5Z1u397BALpPSHraO33 Ne9uwEvoQPByoIPF hX4rxwqnl6mkggtiAkAc RGFeNZt4GVp3ENXjjCpt YmHuWUO4DcP6EWX3eAQy aG3icNfhzcdmlV9i Oyc+W23lfB5oMYS1RWW1 gwfpTXYopmGxML33CG42 B3EvEdtblMGikTC+PGRp dmSdrPfkEV4gVpRb i8key8VvTCssH2CvNWRf RFosVdc5RMPkGDQ7dSF9 hG8tNPWuWTfku6F1qTQ6 Y0LhcmJcba8lm9np GELaTJewM57ggXNfv9D0 QZJdvLQ3BSKwdNhfTpEw mM73Gkf+BUXsoWytv8Xl Vpksb5lqz2zisAs2 IjMwJSIgdmFsaWduPSJ0 b0IsPm13P66dIAveOAAm TVPjCOMqJDRauWcgfa4m kG8qLx6+PGNvbCB3 eGS8wU2hMNIpWlN7TLil J499RsZotTWbLkvdo7jc v6epyUg5AoZfHZWcbsTo rIasPKU9s4BbCi36 B55wLQhtNHBbALKhEOGm BLLrnIudsz8exD6kDp4+ BT4zq7iswu24gF25hLV+ FUNkDWN1fMohEGpp TJMboI9wCVywYaG6AGMs PsZjcL31nCGhKRkeCt1h cMtyjLyyUN2vBTFdgyhe o199CnExg6yuYAHj uPNzRCwfGEZ9B13zy5A6 EEGxPHXhDEA0uUQ6uU0x bGlnbjogbGVmdDsgdmVy mPbfKOlgUKuvX693 IHRvcDsnPlBhdGllbnQg MeZvTRc0P0ZkEcf5PCUr lIaeLX2juTClYAqzWy1u yWrjrZpqNJ5aMAQw coxjx755BhNij6rqCLSm zQQsMHjsDTI3W45oz0S8 UNFvDYQbVXR4uDE7iM9d bGlnbjogbGVmdDsg acAphEfkTEzuCWclD041 IHRvcDsnPkJpcnRoIERh tLE5EY32QT69yBTgr0O7 eWS0U8WaEPBbrijl hfqheOH6QHYcNXDuiM14 Wk3jaHzoOm7pRYRjHTW9 DYMbpEGgE0MvyL2kLtEz IQJwUHJzU6WbvWDx VTdeN310VEebSwH2FXSf geEnJ2WdTBJdiEdeYrC5 e6S1Ez4MX5Z6FN50QI09 iHJrf7Z2nZL9H6Zt KKUskrmltmgpuIP3UNCa ADSspS80Rx0eoQffXv8v XDUkCXX1CHKgsMXzS2Ny iS8lMqWvNOOmLLWl S2ZblAEaCIgrA476QRqf IvW7FATtxuCqZ4UsEPHd uLsvDcB0h5D7Fj6RPDp3 PJ31JX49dRUhv9T7 pAV7O9IaGWExixolhjab jKY7HKWoWJWerA03Dw3m eTdvLt4qLSMsVQG6HSTe aUVwX6QwvO2mJqLe UIXqXNTbF0CzcYYaCIma R059EFibMiY3RUFtkdJe L0ZdRXMzcXnnMcY9k7Y6 Ba1WPBTiTG56OJV9 iKQ4UD95ZO86C0WsAchy dGFibGU+PHRhYmxlIHdp ZHRoPScxMDAlJyBzdHls VE1oVg0dUQFsKZHx zKbswNIdWyYum2kzSEAc UJbcMB0dhWaeK6RccER7 YZFep3c9At03N37uN2Ns dXA+THUehXL2zIM4 dH4kYnCfFvZ9UGxtW424 YdUgeFQcZkuhg3zcm2bs xNj0EjI7CXBlloOgnJcw ANU1h4TsXb47X20g IHdpZHRoPSIxNSUiIHZh fJuhav1wvL9lBa9+PGNv rRL5jRE0zV3dQxBrYbK7 KGcgH778UxYalFIi Cmouy7uhs1mvgMs9QqSz XJSnzlJjkHroDVZ7s7Vc Pe60X0YvmChyw0OgMkw3 sm67bZIsp1C9pPH9 E9BvPSGwdpvflNRgfUoo BT0zBFJqovuoZFCdrA4u MWIqQ5a5UzDuSfP7DJyn W8GnmwQ4QGZwqZFf XUgjGZJ9V25qw4T7RKXn EMQdJMP8hSA4mK0avRqv bjogbGVmdDsgdmVydGlj LSueXPwfN215CLWn sKtoHGXzzS9aUIAieIUv xCuyAM3zICInzncxRgYV QVRSSUdIVCwgVEhPTUFT UGZ2G5IiAig9VVPp wXraFD9nvSNqGTjjSc2b tBshxNoqOR8xJVUwfhns SDDxhF5lJGMadRXgiZwd KQ1sMUMrlrvuv611 KiFcJXV1LHZdfKKgN3Nm yH4vIoImXNMkEQFfF3Ch iTVdTHdsQ580AVrhWaV6 PWAjaePxB0EjAETr eDowMxI4x3I6Il1qHe7x YC0uNQn9GU74FN62jFOh p4W4eSJ1R3XzTVKjaudf eypboGS8TETuUULv cG83pHNtSLcvEc6yt8Z4 y572BEFwBZGoyX70Fl9u eSvbZUJjkGIQnX2eybjo e3filifqOcSkEHKg IWv9IAi6PMOvlOkuXjJc BIK0WbC2ANC3vRLkxL6h dBkjgmmhbA0xXlr+MjYg CISnirK7O3LwZsn6 TEQwlRggSO8iuJKkAZhv Vf6abCvrfMftBT7oIZPe tlrdFXRuaA1mPKFhyRBc vKfuLN4gBJQxfssw r755IsZlWAR1GSBdqCUe U6RnnW3nOvFgDKBuXDTy Q7FsuGCsFUeqZ047POig KfX2QWTtczIoG3Gp YSFmuUnfHnT5o0J1Hg6S VCajQW01IB36lZBxz1G5 fXP6N1LrCRCxcmooficq sMV3HPBhMZIieM48 sRAwRYtwHl8at9X9w796 RYKjWUGvmP06Wa9nnSjx WBEqbHOJrF4yftwtq9bs cjogIzAwMDAwMDt0 YMa9EPTbdKqlJwTvCXN2 GcI4GQR7sXUqyY3bwGdq plsuoG1cCwu+B8I7uVH8 aWVudDwvdGQ+PC90 cy13R2WrLlfbDfq0KWRx NMY8nQG1fE0wTJCyNHdq l0N6jWY3K2MkthDnga0u p9ayFHDqLUzgP81i eTGxr7C5OEAtoKN2RUPf wTtwDkXyrK98Gwj+PGNv aVrxc2VoJrlvk2teg6bu mWj9AjVmZTTlsuXt wXmzQGG5s8LyZv33V24t IHdpZHRoPSIzMCUiIHZh uTwuqp2inV1zUv0+PGNv fLH4lCY0eD2sVfHa VfJ1MNswO477FtZyfZNb Pwebg2tgu2zlsFm1PtEy MBMoxmLzaRipTUP2x9Zy Yt35C8RymNwcc3Nr Lvc7oq24wLDqt5R4fBD7 P0BpOCBdirhkhMMeiCxj SP2yRTIzgvdpUQVzdT2r FMHpF8o4SfXhUaP6 VVzlU8ZlrsK0MYSsvDMp IEYtkBSIyH6sfqtcf8bs qswdXdIsGFBzNLl8BKr0 LWFsaWduOiBsZWZ0 WwP6KPH0mFLuzS7tcChk mpbcuC2aZpd+WAi3l3ze eMTbLR2fgWC6JC96GY37 tRCsi5D2eDQ5J8Go RFUcpncjsydczJN0QROb ADDgdQ34Kt8pqMzcVz0v FLRbUAI1NAUiuBKeX5Wa lT3gPeKlXSVjRUOa C3WvvSBhEMdhA166SOme XjE6CLSkxiEsO3SmGHUw eCoyAxN7e5L0Hk5SYY64 RL40YT12iNRlb4Q7 xDD3L8RqYKBbvvypoyrm bOI7DONcLYOywP28Tk8c iMyrHd6oPHTqRNY8PAAz tFMjT1ZpjW4tTzIb TMTcFCIaU4NkrCHtXWhz P018BGhjWlR4NIFcbyAh U9ZsRSYdkPknVlP0h4U8 Ix8DRc92PJ22HB18 jYXqp1H7tNB4K7ZpYEVg pxohgweqqUI2HPWyUBFz rT14Gi6lmBhkGi6hPSGa IHI5ACQawJLmI3Ck sB4xNpNgZJGbPVBfO7Ty aEFfPSobL885RObmBbE3 IPOjzvHgJ4WyFFBriYqf JeC8c9M6Rj6QUQur stc1Z9SsAtkmoIL+PC90 YZPjEH83zBOpaPOtt0pc cJk7VrNrJQZeFIE8cIgt RPtgg5JwLQHhM06l bGFw (more content not included)... Normal [facility] Consent for Treatmenton 07-18 Consent for Treatment [id number] #1.00CD:127 Normal [facility] US Abdomen Completeon 2022 US [...] Arreguin M.D. Transcribed by: DORCAS Technologist: ZACHARY [facility] Physician Orderon 08-14-2022 Physician Order [id number] 9#1.00CD:127 [facility] Pre-Certification Formon Pre-Certification Form [id number] 1#1.00CD:127 [facility] Coding Summary.on 08-11-2022 Coding Summary. CD:[id number] Gh0bWw+PGhlYWQ+PE1FV TDuE97bcQNweC9AY9yYY T9EYDTCAYTHCQ4SRJ8bs LX4CBvpH9LvjrMi RljpaEBrLL80GLh4ZQO0 hQxzZZdhvS2djBSnV1x0 DuVgQH54hX85FUsdQWLo YmF7ZkGvzhvteQMn K9ykVwYwxIXrNkd+PHRh YmxlIHdpZHRoPScxMDAl CsJmkTrzWX6bGr7pQOMz LWNvbGxhcHNlOiBj r5gyIZIkXZhrIT7hxEjh G2ZezTO4XKNfd2b1Dv39 dHI+RAOeERL0jUczWMio o017ZgDej4ooHYS9 xENnNOvzLRH0W44dp3J5 ZZLmXUAaXFY7xAQ4iS9t pHnwgoadJ2WkoQPbXfZ8 LLS9yDDnbF6liKcb ttdkeI8fElx+I81DKO3P CIJKRX0XKmg5N0LmWgph dHI+AO42FMPwCH69xRTz kCThd4fmxAe3NkNk BUFwQRF6xYeiRKsut3Pc FOKeU84wwFGth0F3CUOg gNjdeXAuHpMznAN8iE9b CWrmjlkga6roqldx Rjbje9tubo91iI98Q92g PZrkKUJbLWF1KOJjXRQv hDhkqf7pbW2aCv9+IDxj y5ihq4pgbXq4YqBu LJWsxiYacZxsXGN3z3He Ju70D8HesRbew5PfEvw3 bb54zPDox9A0rTJ2JAoy FNGckM3pQRbiPvF4 JAMuBzSceZ48cRPgZWxy Nn9tbBmikQklFP1tDXCh lkmyAKBnsA1vEXMciDLa gVnnWG2tADZbwvyz h620FqMbVPU1HNPdpITm N0BsvY9qAgVmMBNsSVAz E7FpqVOaHAfuM532BDbo CuH4PXDhueEyH2Fk VUSzkYpxVtE8r2E7Vd2Q k4MujuusYOQ4QVyzHFWh EeC8ViSgXaM4R7QkMng5 CYJlcWsgGH7lY9Ib WMZwsfbmxbjizAP3XWQs RONatT99iLIxLBkhFy4t x8T0z576AIReLBDcxD92 Es8ygDqoKMSacTDG hC3pmhzam7hmgebiLxBp IGOdPMa6QEp1IUVseUpu HwIoXYS1FrP4VCJ9iEDf iI1veKfxwtztvW2b Oyc+T79khH5oIKD0KRG4 jnuhJWXiajNpRL96YF39 E2EtPvhtnGOzuRR+PGRp obOyyKhxAI9zUfUv x7jkb8LzDWefC4BsUSOi TNdgNmt6IUGmUJH3zMG7 wI3yKALmKJhps5C2oKR2 C7UbnnGznw1tt0ih TPGjZGcpW90fmCGhn0L9 VKKijOW7PZGbcIxvXkHy vJ54Wpr+CERaxMjyn7Rk Ohvhd8lou2fsmMs9 IjMwJSIgdmFsaWduPSJ0 s0KgWv93Z85tHVpbTBHz QEZjTVHtDMXzaJqoyv2s mZ0gUn6+PGNvbCB3 aLD2jB3mJGAnYuG3ZXcu S557JqQjpCIvTmmnh2kx p1mfbGx2JwLrWXYvpgIc fPwfUVH4w5TjMt40 K76iJCmgMLEvZYXrNJRv UMCakIgdwe1llI7nYn5+ VP7dw6dnsr34gF41fPJ+ EQZlFIJ4kNkkEYkh EYIssV1nTXxuLmX7UQLn UvCdaW30cLZxAZbuTn0t kQpvxFavMR2jRYZocvpk w065FbEvq0jcBEYs iYQtRMrsPCT6O84os6N7 ZYUvVQMzHKH1eZS8jA6d bGlnbjogbGVmdDsgdmVy gSpzKQotFPyvC019 IHRvcDsnPlBhdGllbnQg FoWrYTo7E2CbKho6BZCk iHxgGR0jxOXiGFnfGn5b pHmlmKexFF4zHNFa ibluc357MqSai8zoEXPr xHAtXAfsFLR6H49cb3V2 ZSFgBEFtVGF0mOX0qE7e bGlnbjogbGVmdDsg usPhxZqtWJgaMMawI056 IHRvcDsnPkJpcnRoIERh vOC3JT84ZT92aOGon2R0 yZG8K8LaMRXaquyx oxrrzXO2VLEoVLEfrD49 Ht1piYmcGe1pWAQxQTD8 SFEqcZVwO8OvoC8nOkQw QTKrCSAnO8VzeQYy WDjtC900TDygHgE9ODRi cgIcT2ThQRMmjZdjZwK7 i2Y6Ak6PE8I9GM37GP84 vNUzq2W0nYX0O2Ur WEAnpwcypfbcjCT8UNKs LMBofS26Pm8tcKjqAc2h GLVrTQQ1RPHczYJyL5Fu yH9fSwNnQJWyHWDp L4NyvOXiLLtnA369BAsc VdW1DRAssbCyU9YmMKCw gYrxAvG3o7W6Ao6ECWa5 UU23IR86lMKjh8M4 bET9S1NjHQKcfcjqaoaj tGS8SXSeAQKspJ11Iu0g aKbvHc3pYQYyVPT3DZQp rDBbE3MrlB6bGyMn AYEySBDkE4OzrXHtNDpv K488YNnlWbJ1ZQBrpyYi Y6JaWUHrhGmjMkP7e6F3 Fj2PYHIgNK27SRP1 tHH5JZ93DH87M2RqLbfs dGFibGU+PHRhYmxlIHdp ZHRoPScxMDAlJyBzdHls QB9sLh4uNJKnTWHi pBsvyBSpJmTyw4khXIDv LWufKJ1svWfrL6RflMG4 EFUoj8y3Ku99J30fJ3Qt dXA+VVNrtRL6nCO5 jN6jLqPuUiZ7HXhrB461 AhEduUNeBpkvb9qrf4rn xHu7ExI9WDXoaeDgyNgb JLW5d4IkUn90N82s IHdpZHRoPSIxNSUiIHZh cDflmw9jpL1aIx4+PGNv hDK2gBY4yQ2fTeDsOzE4 WFokW657UoSprUBb Jhphn4sqo4octZg7AaXh FFCysuDcdEsfVOD4c0No Do24Y5DadBvlq8BcIad0 lo16dMTwq1F3kDZ2 Z8RaONOfomdnmSNixZqh ZY9sGWYtfrefGUPhpW0r JJAdJ1c3EmYtAcH8JThf E6SdwgL2WZPcuKLy SKdqRLD5M69fy7O5TKKp LXXmNTI8lOM5pH5vzAzz bjogbGVmdDsgdmVydGlj RUrcFOajQ366ZLAq tEpwJEGraK3pEPKjnLBt rGusYE8oTWGpfwjnUkPS QVRSSUdIVCwgVEhPTUFT SKS2P2NqJse3TXDg dQkoAF8rpSWwPZwwXn9q jIbbzZhzYP8hHTQzyhov FLYtdK1eWVAkdXOvuXpb KX2uNWBwtrtmq795 OoZxDFY4BQNlgXWdP4Wb aP7gWwXqBWMrRGBqS6Sj tAObFEhwJ388RYasDgR9 LBAkvzJgI0LwZNEy fTcxJgN6i9P0Kw2sIg5v AX2dCTs5UN12XB10hTWe i3Z7bAE5M0VvQDVehvgl zitoxQT6YKHbDOMm jK37jZQkPRaoVo3dg8K1 l766CTTvUBUdwE29Ne3x wRrhVFEexDDXaR3gcran y2hxplypGyRqPMKx NBq7NJp1IWOetEnjItOw KZQ5BjV1FUJ3xYYtqY3a oNmoikpwoE2cAmz+MjYg NOJbcqL3U4GkOvs3 GGGibPkcGK1uhRPjQDho Yv4bkImexMhyJF9eMYNr ggmbEKKonK2vXGBtcBKn vPuvTH7sNNQyllvg s882UuEwMHU6ZUMmyDGx Z4EovO6xIiQaCDFaJSBr Z0NpgEDkPDehT775XLjl TeM2GCYzliVaR0Iz BSOmyKskCbK0j4Z2Vo4M ZYscJU55PM91wAVaf1E7 gAU4P6UhOGChnqdbyvjt lQR4VOVhDPRwcG65 mEAbEAqvFu4bx0O2k768 EIJvVRNiwU17Dt4kcYnw XOClyCBEtQ8wxrfti9np cjogIzAwMDAwMDt0 BCd6RZNfyXfjKdQzHWF9 FzG2DIZ5yIArfQ0qcHoq ywbsuP6fFet+BF3oryix uxA0JM27HM47R2Xk PjwvdGFibGU+PHRhYmxl IHdpZHRoPScxMDAlJyBz uDycDE2tKs7pFTXtLEQi xDqnlIFwJaScy8sd ESFhGIoiBN8gqFplH3Sa vCP5ECIyp4s6Iw45Q45u Z6DoyCH+IFVknKE9hAZ3 mA0tPiMeOnZ8PZhj B563DdZskQDwDwezl6wy p8ttrLi7EvEoUHXdumDg kEypQCN1j8JdGf83F36b IHdpZHRoPSIyMCUi EDLmxJlhgn2djL9fVj4+ BMGfwRL7hQV0kN9aXqRa AzA4RCmyJ307ZvSngZBc BmalH71vU2SvrGB+ YWIzQky5IIDimIdzKV8t rSZxUZtfYx9qQMU1OyFs AgFwZYdpZ0GqNTBqlhso fnumwRQ6VCDiAPZh sP64Ae5pjGlrWl3oPJDu IUU0EORegIAgB0HvwA8c FgLqESDtXJYgL3OcoZSa IDafH790FAldOrM3 LDNavrOeE7ZzUFAqqSod MzH8c7Y3Dw6LtMofqFIr TR5cMsKqFQa3F7GnCem4 DCPvqVllJS5mjEIq QYuaNa7tlZdhdRvrWP7y CTSzwdbzs361TpRwl2an QBIdkGGlDVlxUGS8R61y z6G2MPYvGATfMSF5 dEO9vW8rlUsslxnftGHj dDsgdmVydGljYWwtYWxp R359LGEnvQrkGnOJSbf4 A0GrXdi6OOZkzRty VU7wzWKhDUmiHg6fiQbg pXyuMX2eVYWanmzqk412 RhMae4gaRXWutXVcEMrv EXZ9S50ql9R6PRRo XPSxFGM4jFQ5uG2tkBmf bjogbGVmdDsgdmVydGlj ZIneEUzoG532ZLUqqJbk Zz8DUef3B3DdZto4 YOKuyWlcZF9peUNiVDmd Vx1uvIlzbKnnNS2eOKEo hydmp719YlGab3flOSSn lTApFBvsGBI5P26p k7S8ZJBtSRIlXAJ4mZR8 eC0rbOnzuplhuILdnOny peEotDjbXMwiMGtnK494 IHRvcDsnPlBheWVy OjwvdGQ+YQ79gx76X1Fw PstvWza7IQTxUGV6oFQ1 iV0bMJPtLFagm8H6yQW3 K0XkdrVqzw3gd8hq YXBz (more content not included)... Normal [facility] ED Note-Physicianon 08-11-19 ED Note-Physician [...] day(s), # 28 tab(s), Refills(s) 0, Pharmacy: [facility], 193, cm, 08/09/22 16:56:00 EST, Height/Length Dosing, 115.2, kg, 08/09/22 16:56:00 EST, Weight Dosing ondansetron, 4 mg = 2 mL, Injection, IV Push, Once, Stop date 08/09/22 17:30:00 EST, STAT, Start date 08/09/22 17:30:00 EST, 08/09/22 17:30:00 EST ondansetron, 4 mg = 1 tab(s), Oral, q6hr, # 12 tab(s), Refills(s) 0, Pharmacy: [facility], 193, cm, 08/09/22 16:56:00 EST, Height/Length [...] UA With Cult Reflex Medications Administered Given [id number] [F], 1000 mL, IV ondansetron 4 mg/2 [...] days 08/12/2022 EST [address] [place] [address]- Business (1) Add (more content not included)... Normal [facility] Comment on above: Result Comment: Elec tronically Signed By: Domingo Mcmillan PA-C\.br\Date and Time Signed: 08/09/22 20:16 EST\.br\Electronically Co-Signed By: Jv Dacosta DO\.br\Date and Time Co-Signed: 08/11/22 07:00 EST Discharge Instructionson Discharge Instructions [id number]#1.00CD:127 Normal [facility] Auto Diffon 08-09-2022 Basophils/100 WBC (Bld) 0.6 % Normal 0.0-2.0 [facility] Comment on above: Order Comment: Order Added by Discern Expert. Performed By: #### 2 240381, 46622772, 9997725, 4723358, 9870475, 7352626 ####[facility] [address] [place] [address] Basophils/Leukocytes Auto (Bld) [Pure # fraction] 0.1 E9/L Normal 0.0-0.2 [facility] Comment on above: Order Comment: Order Added by Discern Expert. Performed By: #### 2 761289, 62594443, 8232580, 6166565, 4474444, 7952375 ####[place] [address] [place] [address] Eosinophils/100 WBC (Bld) 1.2 % Normal 0.0-8.0 [facility] Comment on above: Order Comment: Order Added by Discern Expert. Performed By: #### 2 146270, 59913965, 1115141, 2497107, 0219642, 6556935 ####[address] [place] [address] Eosinophils/Leukocyt es Auto (Bld) [Pure # fraction] 0.1 E9/L Normal 0.0-0.5 [facility] Comment on above: Order Comment: Order Added by Discern Expert. Performed By: #### 2 014397, 34267688, 8567841, 2476100, 9302652, 4160497 ####[address] [address] Lymphocytes/100 WBC (Bld) 17.1 % Normal 14.0-50.0 [facility] Comment on above: Order Comment: Order Added by Discern Expert. Performed By: #### 2 006074, 18031025, 5678717, 9987670, 2460164, 6723814 ####[address] [place] [address] Lymphocytes/Leukocyt es Auto (Bld) [Pure # fraction] 1.9 E9/L Normal 1.0-4.0 [facility] Comment on above: Order Comment: Order Added by Discern Expert. Performed By: #### 2 882661, 86805919, 9847064, 4891659, 7607382, 4482886 ####[address] [place] [address] Monocytes/100 WBC (Bld) 9.2 % Normal 4.0-14.0 [facility] Comment on above: Order Comment: Order Added by Discern Expert. Performed By: #### 2 128990, 88067495, 5242228, 9481913, 0130665, 9054095 ####[facility] [address] [place] [address] Monocytes/Leukocytes Auto (Bld) [Pure # fraction] 1.0 E9/L Normal 0.2-1.0 [facility] Comment on above: Order Comment: Order Added by Discern Expert. Performed By: #### 2 018265, 98101008, 6998643, 6198065, 9638844, 2227455 ####[address] [place] [address] Neutrophils/100 WBC (Bld) 71.9 % Normal 36.0-75.0 [facility] Comment on above: Order Comment: Order Added by Discern Expert. Performed By: #### 2 422828, 87054814, 1512874, 3640304, 2906266, 5795960 ####[facility] [address] [place] [address] Neutrophils/Leukocyt es Auto (Bld) [Pure # fraction] 7.8 E9/L High 2.0-7.5 [facility] Comment on above: Order Comment: Order Added by Discern Expert. Performed By: #### 2 091270, 14776391, 8090174, 8314556, 9205881, 9293870 ####[facility] [address] [place] [address] BMPon 08-09-2022 Creatinine [Mass/Vol] 1.1 mg/dL Normal 0.5-1.3 [facility] Comment on above: Performed By: #### 2 128564, 41283762, 4796148, 7023154, 5649835, 8595478 ####[facility] [address] [place] [address] Urea nitrogen [Mass/Vol] 17 mg/dL Normal 5-21 [facility] Comment on above: Performed By: #### 2 778255, 81457353, 6598264, 5110831, 5297212, 5168266 ####[facility] [address] [place] [address] Urea nitrogen/Creatinine [Mass ratio] 16 No Units Normal 10-20 [facility] Comment on above: Performed By: #### 2 238895, 37839874, 2151703, 4963772, 8229213, 9466814 ####[facility] [address] [place] [address] Anion gap [Moles/Vol] 14 mmol/L Normal 6-16 [facility] Comment on above: Performed By: #### 2 901056, 53269841, 0369321, 3602503, 1575915, 6552855 ####[facility] [address] [place] [address] Calcium [Mass/Vol] 9.6 mg/dL Normal 8.9-11.1 [facility] Comment on above: Performed By: #### 2 950160, 79156361, 7344659, 9683637, 6413448, 9896435 ####[facility] [address] [place] [address] Chloride [Moles/Vol] 100 mmol/L Low 101-111 [facility] Comment on above: Performed By: #### 2 930438, 54741325, 6159891, 8918694, 4361607, 3765832 ####[facility] [address] [place] [address] CO2 [Moles/Vol] 23 mmol/L Normal 21-31 [facility] Comment on above: Performed By: #### 2 060218, 62604580, 1710625, 1274642, 4071495, 8290266 ####[facility] [address] [place] [address] Glucose [Mass/Vol] 98 mg/dL Normal 55-199 [facility] Comment on above: Result Comment: If t his glucose result represents a fasting glucose, interpretation should refer to the following reference range: 55-99 mg/dL Performed By: #### 2 983487, 83335513, 1937312, 0596497, 0173841, 7601342 ####[facility] [address] [place] [address] Potassium [Moles/Vol] 4.7 mmol/L Normal 3.5-5.3 [facility] Comment on above: Performed By: #### 2 313355, 55514760, 5514687, 5451929, 5577084, 9557801 ####[facility] [address] [place] [address] Sodium [Moles/Vol] 132 mmol/L Low 135-145 [facility] Comment on above: Performed By: #### 2 529915, 23677276, 1344828, 8511702, 0434904, 9147949 ####[facility] [address] [place] [address] CBC w/ Auto Diffon Erythrocyte distribution width (RBC) [Ratio] 13.2 % Normal 10.9-14.2 [facility] Comment on above: Performed By: #### 2 773399, 61539225, 1550922, 4594573, 2441568, 6517825 ####[facility] [address] [place] [address] Hematocrit (Bld) [Volume fraction] 53.9 % High 37.7-49.0 [facility] Comment on above: Performed By: #### 2 952793, 87092070, 0000509, 6193669, 3976746, 5798228 ####[facility] [address] [place] [address] Hemoglobin (Bld) [Mass/Vol] 18.0 g/dL High 13.5-17.5 [facility] Comment on above: Performed By: #### 2 646433, 36787757, 7162975, 6925508, 1990862, 6976745 ####[facility] [address] [place] [address] MCH (RBC) [Entitic mass] 29.1 pg Normal 27.0-34.0 [facility] Comment on above: Performed By: #### 2 432541, 12321499, 0240784, 8457733, 9840962, 7023240 ####[address] [address] MCHC (RBC) [Mass/Vol] 33.3 g/dL Normal 31.4-36.0 [facility] Comment on above: Performed By: #### 2 321442, 27344372, 5219216, 3666407, 4168697, 5745693 ####[address] [address] MCV (RBC) [Entitic vol] 87.4 fL Normal 80.0-100.0 [facility] Comment on above: Performed By: #### 2 767249, 86941844, 3952273, 6527101, 2555397, 5052648 ####[place] [address] Platelet mean volume (Bld) [Entitic vol] 7.2 fL Normal 6.4-10.8 [facility] Comment on above: Performed By: #### 2 549350, 67173932, 1683208, 2769550, 2705516, 5279735 ####[address] [address] Platelets (Bld) [#/Vol] 328.0 E9/L Normal 150.0-500.0 [facility] Comment on above: Performed By: #### 2 130787, 68342008, 4025357, 3678770, 1869584, 7928871 ####[address] [address] RBC (Bld) [#/Vol] 6.2 E12/L High 4.3-5.9 [facility] Comment on above: Performed By: #### 2 172451, 48810011, 8482043, 2340819, 3430331, 7300299 ####[address] [place] [address] WBC corrected for nucl RBC Auto (Bld) [#/Vol] 10.9 E9/L Normal 4.0-11.0 [facility] Comment on above: Performed By: #### 2 830389, 30647546, 0380480, 4650193, 1654682, 5565582 ####[facility] [address] [place] [address] CHEMISTRYOrdered By: SYSTEM SYSTEM on 08-09-2022 Albumin [...] [Vol rate/Area] mL/min/1.73 m2 Normal >=59mL/min/1.73 m2 [facility] [place] S GFR/1.73 sq M.predicted among non-blacks MDRD (S/P/Bld) [Vol rate/Area] mL/min/1.73 m2 Normal >=59mL/min/1.73 m2 [facility] [place] S Globulin (S) [Mass/Vol] 3.4 g/dL Normal 1.4 - 4.0 gm/dL FT Remisol Glucose [Mass/Vol] 98 mg/dL Normal 55 - 199 mg/dL FT Remisol Lipase [Catalytic activity/Vol] 24 U/L Normal 13 - 58 unit/L [facility] Potassium [Moles/Vol] 4.7 mmol/L Normal 3.5 - 5.3 mmol/L FT Remisol Protein [Mass/Vol] 8.7 g/dL High 6.0 - 7.8 gm/dL [place] [facility] [place] Sodium [Moles/Vol] 132 mmol/L Low 135 - 145 mmol/L FT Remisol Urea nitrogen [Mass/Vol] 17 mg/dL Normal 5 - 21 mg/dL [facility] Remisol Urea nitrogen/Creatinine [Mass ratio] 16 mg/mg [...] 300 Contrast amount in ml's: 100 Normal [facility] Consent for Treatmenton 07-17 Consent for Treatment [id number] #1.00CD:127 Normal [facility] ED Clinical Summaryon 2022 ED Clinical Summary [place] [id number] ED Clinical Summary Person Information Name: TIGRECINDY ESCOBAR [facility] Age: 26 Years : 1995 Sex: Male Language: Fijian PCP: Bi BELL DO Marital Status: Single [...] 08/09/2022 20:08:07 08/09/2022 20:08:07 08/09/2022 20:08:07 ADDRESS: [address] [place] [id number] PHYS DOC NOTES: MEDICAL INFORMATION: Prescriptions Given: New Medications [facility], [address], [place] [id number], [phone] dicyclomine (dicyclomine 20 mg Tab) 1 Tablets [...] Follow up: With: Address: When: Bi BELL [facility] [place] [id number] [employer] ([employer] In 3 days 08/12/2022 DIAGNOSIS: Abdominal pain; Diarrhea; Nausea Normal [facility] ED Patient Education Noteon 08-09-2022 [...] oral rehydration solution (ORS). This is an unra-fzz-fpneevi medicine that helps return your body to [...] sports drinks, and soda. ? Eat bland, pxpu-jc-apovkp foods in small amounts as you are able. These foods include bananas, applesauce, rice, lean meats, toast, and crackers. ? Avoid alcohol. ? Avoid spicy or fatty foods. Medicines ? Take odnp-era-bbqmjoh and prescription medicines only as told by your health care provider. ? If you were prescribed an antibiotic medicine, take it as told by your health care provider. Do not stop using the antibiotic even if you start to feel better. General instructions ? Wash your hands often using soap and water. If soap and water are not available, use a hand director marketing. Others in the household should wash their [...] and water are not available, use hand director marketing. ? Contact a health care provider if [...] 06/22/2003 Document Revised: 11/18/2019 Document Reviewed: 12/06/2018 [employer] Patient Education ? 2019 [employer]. Nausea, Adult Nausea is the feeling that [...] a drink (more content not included)... Normal [facility] ED Patient Summaryon 023 ED Patient Summary [place] [address] Patient Discharge Instructions Person Information Name: CINDY SYLVESTER Age: 26 Years Arrival Date: 08/09/2022 16:50:34 Discharge Diagnosis: Abdominal pain; Diarrhea; Nausea Primary Care Physician: Bi BELL DO Provider Information Primary Provider: Jv Dacosta DO Advanced Deck Builder:Domingo Mcmillan PA-C The exam and treatment you received in the Emergency Department were for an urgent problem and are not intended as complete care. It is important that you follow up with a doctor, nurse practitioner, or physician?s assistant restaurant general manager for ongoing care. If your symptoms become [...] When: Bi BELL [address] [place] [address] [employer] (1) In 3 days 08/12/2022 In the event that this physician does not participate in your insurance network, please consult with your insurance company to find a nearby participating provider. Patient Education Materials: Diarrhea, Adult; Nausea, Adult A MESSAGE TO ALL PATIENTS REGARDING OPIOIDS PRESCRIPTION OPIOIDS: WHAT YOU NEED TO KNOW Prescription opioids can be used to help relieve nchyltos-jh-kryahb pain and are often prescribed following a [...] be struggling with addiction, tell your health careers adviser and ask for guidance or call [facility] National Helpline at 0-265- (more content not included)... Normal [facility] HEMATOLOGYOrdered By: SYSTEM SYSTEM on [...] 08-09-2022 Albumin [Mass/Vol] 5.3 g/dL High 3.3-5.0 [facility] Comment on above: Performed By: #### 2 282890, 19201076, 4832809, 7161543, 3678970, 5949689 ####[facility] [address] [place] [address] Albumin/Globulin (S) [Mass conc ratio] 1.6 Normal 1.1-2.2 [facility] Comment on above: Performed By: #### 2 275724, 63662341, 3689550, 3921841, 1202949, 7638310 ####[facility] [address] [place] [address] ALP [Catalytic activity/Vol] 108 Int._Unit/L High 21-98 [facility] Comment on above: Performed By: #### 2 592132, 23029678, 6510170, 1239825, 0658880, 1043568 ####[address] [address] ALT No additional P-5'-P [Catalytic activity/Vol] 46 Int._Unit/L Normal 6-46 [facility] Comment on above: Performed By: #### 2 221441, 70429418, 3976562, 5206583, 4101857, 4219006 ####[facility] [address] [place] [address] AST [Catalytic activity/Vol] 26 Int._Unit/L Normal 5-43 [facility] Comment on above: Performed By: #### 2 599851, 43898629, 7729412, 4244197, 5026088, 0282586 ####[facility] [address] [place] [address] Bilirubin [Mass/Vol] 1.3 mg/dL High 0.0-1.1 [facility] Comment on above: Performed By: #### 2 062846, 74049510, 8877375, 7067317, 4115363, 7604296 ####[facility] [address] [place] [address] Bilirubin.direct [Mass/Vol] 0.2 mg/dL Normal 0.1-0.4 [facility] Comment on above: Performed By: #### 2 794524, 57865784, 3337899, 0500959, 6745979, 2471571 ####[facility] [address] [place] [address] Bilirubin.indirect [Mass or moles/Vol] 1.0 mg/dL High 0.1-0.9 [facility] Comment on above: Performed By: #### 2 503799, 18508468, 1426165, 5421113, 6140957, 5884231 ####[address] [place] [address] Globulin (S) [Mass/Vol] 3.4 g/dL Normal 1.4-4.0 [facility] Comment on above: Performed By: #### 2 147666, 81678999, 7528210, 8890896, 9643925, 3548134 ####[address] [address] Protein [Mass/Vol] 8.7 g/dL High 6.0-7.8 [facility] Comment on above: Performed By: #### 2 430828, 36797333, 8628136, 7255938, 9322394, 3574969 ####[address] [address] Lipase Levelon 08-09-2022 Lipase [Catalytic activity/Vol] 24 U/L Normal 13-58 [facility] Comment on above: Performed By: #### 2 960903, 96351557, 0266378, 9817034, 1121789, 5399132 ####[address] [address] Reminderson 08-09-2022 Reminders - From: Trupti Marques CNP To: Sri Tyler; Sent: 08/08/2022 08:58:32 EST Show up: 08/08/2022 08:59:00 EST Subject: Ambulatory Reminder Reminder/Recall Colonoscopy in 2031. 04/06/2032 - From: Sri Tyler To: [facility] - Reminders/Recalls; Sent: 08/09/2022 13:13:14 EST ! Show up: 02/14/2032 13:13:00 EDT Due Date/Time: 03/16/2032 13:13:00 EDT Normal [facility] UA With Cult Reflexon 2022 Bilirubin Ql (U) Negative Normal Negative [facility] Comment on above: Performed By: #### 1 2652607 ####[facility] [address] [place] [address] Clarity (U) CLEAR Normal Clear [facility] Comment on above: Performed By: #### 1 4983774 ####[facility] [address] [place] [address] Color (U) YELLOW Normal Yellow [facility] Comment on above: Performed By: #### 1 8499017 ####[facility] [address] [facility] [place] [address] Epithelial cells.squamous LM.HPF (Urine sed) [#/Area] 3-4 Normal 0-2 [facility] Comment on above: Performed By: #### 1 1566848 ####[facility] [address] [place] [address] Glucose Test strip (U) [Mass/Vol] Negative Normal Negative [facility] Comment on above: Performed By: #### 1 1251228 ####[facility] [address] [facility] [place] [address] Hemoglobin Ql (U) Negative Normal Negative [facility] Comment on above: Performed By: #### 1 3675056 ####[facility] [address] [place] [address] Ketones (U) [Mass/Vol] Negative Normal Negative [facility] Comment on above: Performed By: #### 1 0157122 ####[facility] [address] [place] [address] [place].plasma/Lithi um.RBC (Bld) [Mass ratio] 0-3 Normal 0-3 [facility] Comment on above: Performed By: #### 1 1850201 ####[address] [address] Nitrite Ql (U) Negative Normal Negative [facility] Comment on above: Performed By: #### 1 7134048 ####[address] [address] pH (U) 6.0 [pH] Invalid Interpretation Code 5.0-9.0 [facility] Comment on above: Performed By: #### 1 3768736 ####[address] [address] Protein (U) [Mass/Vol] Negative Normal Negative [facility] Comment on above: Performed By: #### 1 7542053 ####[place] [address] Specific gravity (U) [Rel density] 1.015 Invalid Interpretation Code 1.005-1.030 [facility] Comment on above: Performed By: #### 1 5022349 ####[place] [address] Type of Urine collection method Clean Catch Normal [facility] Comment on above: Performed By: #### 1 8974455 ####[address] [address] Urobilinogen Qn (U) 0.2 {Casa'U}/dL Normal 0.0-1.0 [facility] Comment on above: Performed By: #### 1 1292161 ####[address] [address] WBC Auto Ql (U) Negative Normal Negative [facility] Comment on above: Performed By: #### 1 7127957 ####[address] [address] WBC LM.HPF (Urine sed) [#/Area] 0-5 Normal 0-5 [facility] Comment on above: Performed By: #### 1 4145124 ####[facility] [address] [place] [address] URINALYSISOrdered By: Jose Rose on 08-09-2022 Bilirubin [...] PM) Normal Negative [facility] UA Auto SS [place].plasma/Lithi um.RBC (Bld) [Mass ratio] 0-3 /HPF Normal [...] [facility] UA Auto SS Urobilinogen Qn (U) 0.4193465 {Casa'U}/dL Normal 0.0 - 1.0 EU/dL [facility] UA Auto SS WBC Auto Ql (U) Negative (08/09/22 7:08 PM) Normal Negative [facility] UA Auto SS WBC LM.HPF (Urine sed) [#/Area] 0-5 /HPF Normal 0-5/HPF [facility] [place]A Auto SS eGFRon 08-09-2022 GFR/1.73 sq M.predicted among blacks MDRD (S/P/Bld) [Vol rate/Area] mL/min/{1.73_m2} Normal >=59 [facility] Comment on above: Order Comment: Order added by Discern Expert. Result Comment: eGFR is race adjusted. AA=. Performed By: #### 2 892797, 83625800, 2752013, 8035429, 7133500, 5019887 ####[facility] [address] [place] [address] GFR/1.73 sq M.predicted among non-blacks MDRD (S/P/Bld) [Vol rate/Area] mL/min/{1.73_m2} Normal >=59 [facility] Comment on above: Order Comment: Order added by Discern Expert. Result Comment: Computing Architect mayra kidney disease could be indicated at eGFR's of less than 60 mL/min/1.73m2. Kidney failure is indicated at less than 15 mL/min/1.73m2. Performed By: #### 2 234759, 66936401, 8676985, 2292796, 6674285, 0622856 ####[facility] [address] [place] [address] Ambulatory Visit Summaryon 0 08-08-2022 Ambulatory Visit [...] Sound 2022 9:00 AM EST With: Where: [facility] Sunday 10:20 AM EDT With: Trupti Marques CNP Where: [facility] Normal [facility] Gastroenterology Office/Clin ic Noteon 08-08-2022 [...] elastase 8 (more content not included)... Normal [facility] Comment on above: Result Comment: [...] these instructions at home: Medicines ? Take nlag-cmm-zedrgcx and prescription medicines only as told by [...] your condition for any changes. ? Take yrpy-sxo-tpohfcs and prescription medicines only as told by [...] Reviewed: 11/10/2019 Elsevier Patient Education ? 2019 [employer] [facility] Consultation Noteon 08-03-19 Consultation Note [id number] #1.00CD:127 [facility] Auth for Release of Medical Recordson 06-19-2022 Auth for Release of Medical Records [id number] #1.00CD:127 Normal [facility] CHEMISTRYOrdered By: SYSTEM SYSTEM on [...] 78 mm[Hg] Cesilia Jeter MD Work Phone: [facility] 05-28-2023 14:56-0500 Heart rate 112 /min Cesilia Jeter MD Work Phone: [facility] 05-28-2023 14:56-0500 Systolic blood pressure 106 mm[Hg] Cesilia Jeter MD Work Phone: [facility] 05-28-2023 13:59-0500 Body height 193 cm Cesilia Jeter MD Work Phone: [facility] 05-28-2023 13:59-0500 Body mass index (BMI) [Ratio] 30.07 kg/m2 Cesilia Jeter MD Work Phone: [facility] 05-28-2023 13:59-0500 Body weight 112.04 kg Cesilia Jeter MD Work Phone: [facility] 04-05-2023 13:57-0400 Body height 193.04 cm Bi Bell Work Phone: [facility] DO Work Phone: 04-05-2023 13:57-0400 Body mass index (BMI) [Ratio] 28.85 kg/m2 Bi Bell Work Phone: [facility] DO Work Phone: 04-05-2023 13:57-0400 Body surface area Derived from formula 2.38 m2 Bi Bell Work Phone: [facility] DO Work Phone: 04-05-2023 13:57-0400 Body weight 107.5 kg Bi Bell Work Phone: [facility] DO Work Phone: 04-05-2023 13:57-0400 Diastolic blood pressure 80 mm[Hg] Bi Bell Work Phone: [facility] DO Work Phone: 04-05-2023 13:57-0400 Heart rate 111 /min Bi Bell Work Phone: [facility] DO Work Phone: 04-05-2023 13:57-0400 Systolic blood pressure 130 mm[Hg] Bi Bell Work Phone: [facility] DO Work Phone: 02-15-2023 11:49-0400 Diastolic blood pressure 89 mm[Hg] DO Bi Bell Work Phone: [facility] 02-15-2023 11:49-0400 Heart rate 106 /min DO iB Bell Work Phone: [facility] 02-15-2023 11:49-0400 Systolic blood pressure 145 mm[Hg] DO Bi Bell Work Phone: [facility] 02-15-2023 11:39-0400 Body height 193.04 cm DO Bimaxi Bell Work Phone: [facility] 02-15-2023 11:39-0400 Body weight 113.39 kg DO Bi Bell Work Phone: [facility] 02-15-2023 10:00-0400 SaO2% (BldA) [Mass fraction] 99 % DO Bimaxi Bell Work Phone: [facility] 02-07-2023 21:26-0400 Body temperature 98.24 [degF] Ghulam Masterson [facility] 02-07-2023 21:26-0400 Diastolic blood pressure 78 mm[Hg] Ghulam Masterson [facility] 02-07-2023 21:26-0400 Heart rate 102 /min Ghulam Masterson [facility] 02-07-2023 21:26-0400 Respiratory rate 15 /min Ghulam Masterson [facility] 02-07-2023 21:26-0400 SaO2% (BldA) [Mass fraction] 98 % Ghulam Masterson [facility] 02-07-2023 21:26-0400 Systolic blood pressure 132 mm[Hg] Ghulam Masterson [facility] 12-14-2022 14:56-0400 Diastolic blood pressure 80 mm[Hg] Bi Bell Work Phone: [facility] DO Work Phone: 12-14-2022 14:56-0400 Diastolic blood pressure 76 mm[Hg] Bi Bell Work Phone: [facility] DO Work Phone: 12-14-2022 14:56-0400 Systolic blood pressure 130 mm[Hg] Bi Bell Work Phone: [facility] DO Work Phone: 12-14-2022 14:56-0400 Systolic blood pressure 128 mm[Hg] Bi Bell Work Phone: [facility] DO Work Phone: 12-14-2022 13:39-0400 Diastolic blood pressure 88 mm[Hg] Bi Bell Work Phone: [facility] DO Work Phone: 12-14-2022 13:39-0400 Systolic blood pressure 120 mm[Hg] Bi Bell Work Phone: [facility] DO Work Phone: 12-14-2022 13:37-0400 Body height 193.04 cm Bi Bell Work Phone: [facility] DO Work Phone: 12-14-2022 13:37-0400 Body mass index (BMI) [Ratio] 30.07 kg/m2 Bi Bell Work Phone: [facility] DO Work Phone: 12-14-2022 13:37-0400 Body surface area Derived from formula 2.42 m2 Bi Bell Work Phone: [facility] DO Work Phone: 12-14-2022 13:37-0400 Body weight 112.04 kg Bi Hoyt Ray Work Phone: [facility] DO Work Phone: 12-14-2022 13:37-0400 Diastolic blood pressure 88 mm[Hg] Bi Bell Work Phone: [facility] DO Work Phone: 12-14-2022 13:37-0400 Heart rate 106 /min Bi Bell Work Phone: [facility] DO Work Phone: 12-14-2022 13:37-0400 Systolic blood pressure 128 mm[Hg] Bi S Ray Work Phone: [facility] DO Work Phone: 11-23-2022 13:49-0400 Blood Pressure Location Chapman SALAM [facility] 11-23-2022 13:49-0400 Diastolic blood pressure 91 mm[Hg] Chapman SALAM [facility] 11-23-2022 13:49-0400 Heart rate 111 /min Chapman SALAM [facility] 11-23-2022 13:49-0400 Respiratory rate 16 /min Chapman SALAM [facility] 11-23-2022 13:49-0400 SaO2% (BldA) [Mass fraction] 98 % Chapman SALAM [facility] 11-23-2022 13:49-0400 Systolic blood pressure 134 mm[Hg] Chapman SALAM [facility] 10-20-2022 10:08-0400 Blood Pressure Location Truptilanette Marques [facility] 10-20-2022 10:08-0400 Body temperature 97.34 [degF] Trupti Marques [facility] 10-20-2022 10:08-0400 Diastolic blood pressure 67 mm[Hg] Trupti Escamillametz [facility] 10-20-2022 10:08-0400 Heart rate 126 /min Trupti Marques [facility] 10-20-2022 10:08-0400 Systolic blood pressure 110 mm[Hg] Trupti Escamillametz [facility] 08-09-2022 20:00-0500 Diastolic blood pressure 73 mm[Hg] Jv Dacosta [facility] 08-09-2022 20:00-0500 Heart rate 92 /min Jv Dacosta [facility] 08-09-2022 20:00-0500 Mean blood pressure 98 mm[Hg] Jv Dacosta [facility] 08-09-2022 20:00-0500 Respiratory rate 18 /min Jv Dacosta [facility] 08-09-2022 20:00-0500 SaO2% (BldA) [Mass fraction] 98 % Jv Praneeth [facility] 08-09-2022 20:00-0500 Systolic blood pressure 149 mm[Hg] Jv Praneeth [facility] 08-09-2022 19:00-0500 Diastolic blood pressure 65 mm[Hg] Jv Praneeth [facility] 08-09-2022 19:00-0500 Heart rate 97 /min Jvaustin Dacosta [facility] 08-09-2022 19:00-0500 Mean blood pressure 90 mm[Hg] Jv Dacosta [facility] 08-09-2022 19:00-0500 SaO2% (BldA) [Mass fraction] 96 % Jv Dacosta [facility] 08-09-2022 19:00-0500 Systolic blood pressure 140 mm[Hg] Jv Praneeth [facility] 08-09-2022 18:00-0500 Diastolic blood pressure 74 mm[Hg] Jv Praneeth [facility] 08-09-2022 18:00-0500 Mean blood pressure 87 mm[Hg] Jv Praneeth [facility] 08-09-2022 18:00-0500 SaO2% (BldA) [Mass fraction] 95 % Jv Praneeth [facility] 08-09-2022 18:00-0500 Systolic blood pressure 112 mm[Hg] Jv Praneeth [facility] 08-09-2022 16:54-0500 Body temperature 97.52 [degF] Jv Dacosta [facility] 08-09-2022 16:54-0500 Heart rate 124 /min Jv Dacosta [facility] 08-08-2022 08:24-0500 Blood Pressure Location Trupti Marques [facility] 08-08-2022 08:24-0500 Body temperature 97.16 [degF] Trupti Marques [facility] 08-08-2022 08:24-0500 Diastolic blood pressure 82 mm[Hg] Trupti Marques [facility] 08-08-2022 08:24-0500 Heart rate 105 /min Trupti Marques [facility] 08-08-2022 08:24-0500 Systolic blood pressure 129 mm[Hg] Trupti Marques [facility] 04-13-2022 16:08-0400 Blood Pressure Location Bi BELL [facility] 04-13-2022 16:08-0400 Body temperature 97.16 [degF] Bi BELL [facility] 04-13-2022 16:08-0400 Diastolic blood pressure 82 mm[Hg] Bi BELL [facility] 04-13-2022 16:08-0400 Heart rate 119 /min Bi BELL [facility] 04-13-2022 16:08-0400 SaO2% (BldA) [Mass fraction] 96 % Bi BELL [facility] 04-13-2022 16:08-0400 Systolic blood pressure 142 mm[Hg] Bi BELL [facility] 03-27-2022 11:19-0400 Blood Pressure Location Bi RAY [facility] 03-27-2022 11:19-0400 Body temperature 97.16 [degF] Bi RAY [facility] 03-27-2022 11:19-0400 Diastolic blood pressure 88 mm[Hg] Bi RAY [facility] 03-27-2022 11:19-0400 Heart rate 108 /min Bi BELL [facility] 03-27-2022 11:19-0400 SaO2% (BldA) [Mass fraction] 98 % Bi BELL [facility] 03-27-2022 11:19-0400 Systolic blood pressure 140 mm[Hg] Bi BELL [facility] 11-29-2021 15:45-0400 Blood Pressure Location Bi BELL [facility] 11-29-2021 15:45-0400 Diastolic blood pressure 82 mm[Hg] Bi BELL [facility] 11-29-2021 15:45-0400 Heart rate 110 /min Bi BELL [facility] 11-29-2021 15:45-0400 SaO2% (BldA) [Mass fraction] 98 % Bi BELL [facility] 11-29-2021 15:45-0400 Systolic blood pressure 124 mm[Hg] Bi BELL [facility] 10-06-2021 15:06-0400 Blood Pressure Location Bi RAY [facility] 10-06-2021 15:06-0400 Body temperature 97.16 [degF] Bi BELL [facility] 10-06-2021 15:06-0400 Diastolic blood pressure 92 mm[Hg] Bi BELL [facility] 10-06-2021 15:06-0400 Heart rate 113 /min Bi BELL [facility] 10-06-2021 15:06-0400 SaO2% (BldA) [Mass fraction] 97 % Bi BELL [facility] 10-06-2021 15:06-0400 Systolic blood pressure 148 mm[Hg] Bi BELL [facility] Encounters Encounter Date Encounter Type Care Provider Facility Start: 05-28-2023 End: 05-28-2023 ambulatory [facility] Start: 05-28-2023 End: 05-28-2023 Office outpatient visit 15 minutes Cesilia Jeter MD Work Phone: [facility] Comment on above: Tachycardia (Primary Dx); Atrial fibrillation, unspecified type (CMS/HCC); Heart murmur Start: 05-01-2023 End: 05-02-2023 ambulatory [facility] Start: 04-05-2023 Office outpatient vi sit 25 minutes Bi Bell Work Phone: [facility] DO Work Phone: Start: 04-05-[address] Cesilia Vazquez ty:[id number] Start: 02-15-2023 Chart Update Bi yan Work Phone: [facility] DO Work Phone: Start: 02-15-2023 ambulatory Minnie Hahn lity:[id number] Start: 02-15-2023 End: 02-15-2023 ambulatory Cesilia Jeter Facility:[facility] Start: 02-15-2023 End: 02-15-2023 ambulatory DO Bi Bell Work Phone: [facility] Work Phone: Start: 02-15-2023 End: 02-15-2023 Patient encounter procedure DO Bi Bell Work Phone: [facility] Work Phone: Start: 02-08-2023 Chart Update Bi yan Work Phone: [facility] DO Work Phone: Start: 02-07-2023 End: 02-08-2023 Emergency department patient visit Ghulam Masterson [facility] Start: 02-07-2023 End: 02-07-2023 Emergency department patient visit Ghulam Masterson [facility] Start: 02-05-[address] Bi Friedman Ray Facility:[id number] Start: 01-15-2023 End: 01-16-2023 ambulatory WENDI MENDOZA [facility] Start: 01-07-[address] Cesilia Vazquez ty:[id number] Start: 12-26-2022 End: 12-27-2022 ambulatory Bi BELL Facility:[facility] Start: 12-26-2022 Patient encounter procedure Bi Bell Work Phone: [facility] DO Work Phone: Start: 12-26-[address] Cesilia Vazquez ty: Start: 12-20-2022 End: 12-21-2022 ambulatory Bi BELL [facility] Start: 12-20-2022 End: 12-20-2022 Patient encounter procedure Bi BELL [facility] Start: 12-14-2022 Office consultation new/estab patient 60 min Bi Bell Work Phone: [facility] DO Work Phone: Start: 12-14-2022 Patient encounter procedure Bi Bell Work Phone: [facility] DO Work Phone: Start: 12-14-[address] Cesilia Vazquez ty: Start: 12-06-2022 End: 12-07-2022 ambulatory Palmer Levi [place] Start: 11-29-2022 End: 11-30-2022 ambulatory Bi BELL Facility:[facility] Start: 11-23-2022 End: 11-24-2022 ambulatory Adela ME[facility] Start: 11-23-2022 End: 11-23-2022 Patient encounter procedure Chapman DEREKAM [facility] Start: 11-17-2022 End: 11-18-2022 ambulatory Chapman SALAM Facility[place] Start: 11-01-2022 End: 11-02-2022 ambulatory XXXX NONE Facility[place] Start: 11-01-2022 End: 11-01-[address] [facility] Start: 10-31-2022 ambulatory Winsome Davenport Facility: [facility] Start: 10-30-2022 Chart abstracting Mike mallory MD Work Phone: Hematology/Oncology Start: 10-20-2022 End: 10-21-2022 ambulatory Trupti Marques Facility[place] Start: 10-20-2022 End: 10-20-2022 Patient encounter procedure Trupti Marques [facility] Start: 09-14-2022 End: 09-15-2022 ambulatory XXXX NONE Facility[place] Start: 09-14-2022 End: 09-14-2022 Patient encounter procedure Adela MEZA [facility] Start: 09-05-2022 End: 09-06-2022 ambulatory Dixon Mcwilliams [facility] Start: 09-05-2022 End: 09-05-2022 Patient encounter procedure Dixon Mcwilliams [facility] Start: 09-05-[address] Cesilia Vazquez ty:[id number] Start: 08-21-2022 End: 08-22-2022 ambulatory Tarik Sheehan [facility] Start: 08-21-2022 End: 08-21-2022 Patient encounter procedure Tarik Sheehan [facility] Start: 08-15-2022 End: 08-16-2022 ambulatory Trupti Marques [facility] Start: 08-15-2022 End: 08-15-2022 Patient encounter procedure Trupti Marques [facility] Start: 08-09-2022 End: 08-09-2022 Emergency department patient visit Jv Dacosta Facility[place] Start: 08-09-2022 End: 08-09-2022 Emergency department patient visit Jv Dacosta [facility] Start: 08-08-2022 End: 08-09-2022 [facility]ulatory [facility] Start: 08-08-2022 End: 08-08-2022 Patient encounter procedure Trupti Marques [facility] Start: 07-13-2022 End: 07-14-2022 ambulatory Bi BELL Facility: [place] Start: 05-08-2022 End: 05-17-2022 Pre-admission assessment Bi BELL [facility] Start: 04-13-2022 End: 04-13-2022 Patient encounter procedure Bi BELL [facility] Start: 03-27-2022 End: 03-27-2022 Patient encounter procedure Bi BELL [facility] Start: 03-03-2022 End: 03-03-2022 Patient encounter procedure Chapman SIDNEY [facility] Start: 03-03-2022 End: 03-03-2022 Lab Drop off Adela MEZA [facility] Start: 12-05-2021 End: 12-05-2021 Patient encounter procedure Gustavo Zepeda [facility] Start: 11-29-2021 End: 11-29-2021 Patient encounter procedure Bi BELL [facility] Start: 11-22-2021 End: 11-22-2021 Patient encounter procedure Bi BELL [facility] Start: 11-21-2021 End: 02-19-2022 Recurring Cruzito ALDANA [facility] Start: 11-21-2021 End: 02-19-2022 Special examination status Cruzito ALDANA [facility] Start: 10-06-2021 End: 10-06-2021 Patient encounter procedure Bi BELL [facility] [place] Procedures Date Procedure Procedure Detail Performing Clinician [...] 2) Zoste r Vaccines (1 of 2) [facility] Start: 09-15-2023 DTaP/Tdap/Td Vaccine s (8 - Td or Tdap) DTaP/Tdap/Td Vaccines (8 - Td or Tdap) [facility] Start: 03-16-2023 Influenza vaccination C [facility] Start: 02-22-2023 FUV, Provider: Cesilia Jeter, Status: Pen, Time: 10:15 AM FUV, Provider: Cesilia Jeter, Status: Pen, Time: 10:15 AM [facility] DO Work Phone: Start: 02-15-2023 SURGNON, Provider: Minnie Vásquez, Status: Pen, Time: 11:00 AM [facility] Provider: Minnie Vásquez, Status: Pen, Time: 11:00 AM -[facility] DO Work Phone: Start: 02-05-2023 ECHO, Provider: NEISHA ACKERMAN [facility] 01,[id number], Status: Pen, Time: 2:30 PM ECHO, Provider: NERI [facility] 01,[id number], Status: Pen, Time: 2:30 PM -[facility] DO Work Phone: Start: 12-26-2022 HOLTER 48, Provider: EDDI REBOLLEDO [employer]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 ENGINE FIRER/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 1,[id number], Status: Pen, Time: 1:00 PM HOLTER 48, Provider: EDDI REBOLLEDO [employer] ENGINE FIRER/FIREMAN 1,[id number], Status: Pen, Time: 1:00 PM [facility] DO Work Phone: Start: 07-16-2022 [facility] Start: 09-30-2014 Urine microalbumin profile DTAP,TDAP,TD (1 - Tdap) [facility] Start: 09-30-2013 HEPATITIS C SCREENING HEPATITIS C [facility] Start: 09-30-2013 Hepatitis C screening Hepatitis C [facility] Start: 09-30-2013 HIV SCREENING HIV SCREENING [facility] Start: 11-16-1999 Varicella vaccination Varicell a Vaccines (1 of 2 - 2-dose childhood series) [facility] Start: 04-02-1996 COVID-19 VACCINE (#1) COVID-19 VACCI NE (#1) [facility] Start: 1995 HEPATITIS B (1 of 3 - 3-dose series) HEPATITIS B (1 of 3 - 3-dose series) [facility] Start: 1995 HIV screening HIV Screening [facility] Start: 1995 Lipid panel Lipid Panel [facility] Start: 1995 Yearly Adult [facility] Immunization Date Immunization Notes Care Provider Francisco barney 09-14-2013 tetanus toxoid, redu ezio diphtheria toxoid, and acellular pertussis vaccine, adsorbed Cesilia Jeter MD Work Phone: [facility] Work Phone: 09-14-2013 tetanus toxoid, redu ezio diphtheria toxoid, and acellular pertussis vaccine, adsorbed Bi BELL [facility] Comment on above: Early/Late Reason: N ursing Judgment Early/Late Reason: N ursing Judgment 11-06-2008 meningococcal ACWY vaccine, unspecified formulation Trupti Marques [facility] 11-06-2008 meningococcal polysaccharide (groups A, C, Y and W-135) diphtheria toxoid conjugate vaccine (MCV4P) Bi Bell Work Phone: [facility] DO Work Phone: 11-06-2008 tetanus toxoid, redu ezio diphtheria toxoid, and acellular pertussis vaccine, adsorbed Trupti Marques [facility] 04-23-2003 influenza virus vaccine, unspecified formulation Trupti Marques [facility] 04-23-2003 influenza, seasonal, injectable Bi Bell [facility] Work Phone: 07-11-2002 influenza virus vaccine, unspecified formulation Trupti Marques [facility] 07-11-2002 influenza, seasonal, injectable Bi Bell Work Phone: [facility] DO Work Phone: 06-04-2002 influenza virus vaccine, unspecified formulation Trupti Marques [facility] 06-04-2002 influenza, seasonal, injectable Bi Bell Work Phone: [facility] DO Work Phone: 10-19-1999 diphtheria, tetanus toxoids and acellular pertussis vaccine, unspecified formulation Bi Bell Work Phone: [facility] 10-19-1999 DTaP, unspecified formulation Trupti Shelli [facility] 10-19-1999 measles, mumps and rubella virus vaccine Trupti Marques [facility] 10-19-1999 poliovirus vaccine, unspecified formulation Bi Bell Work Phone: [facility] 250 DO Work Phone: 12-26-1996 diphtheria, tetanus toxoids and acellular pertussis vaccine, unspecified formulation Bi Bell Work Phone: [facility] DO Work Phone: 12-26-1996 DTaP, unspecified formulation Trupti Shelli [facility] 12-26-1996 haemophilus influenz ae type b vaccine, conjugate unspecified formulation Bi Bell Work Phone: [facility] DO Work Phone: 12-26-1996 Hib, unspecified formulation Trupti Shelli [facility] 12-26-1996 measles, mumps and rubella virus vaccine Trupti Shelli [facility] 03-28-1996 DTP-Haemophilus influenzae type b conjugate vaccine Bi Bell Work Phone: [facility] DO Work Phone: 03-28-1996 DTP-Hib Trupti Shleli [facility] 03-28-1996 hepatitis B vaccine, pediatric or pediatric/adolescent dosage Trupti Shelli [facility] 03-28-1996 trivalent poliovirus vaccine, live, oral Bi S Ray Work Phone: [facility] 250 DO Work Phone: 01-25-1996 DTP-Haemophilus influenzae type b conjugate vaccine Bi S Ray Work Phone: [facility] 250 DO Work Phone: 01-25-1996 DTP-Hib Trupti Shelli [facility] 01-25-1996 trivalent poliovirus vaccine, live, oral Bi S Ray Work Phone: [facility] 250 DO Work Phone: 1995 DTP-Haemophilus influenzae type b conjugate vaccine Bi S Ray Work Phone: [facility] 250 DO Work Phone: 1995 DTP-Hib Trupti Shelli [facility] 1995 hepatitis B vaccine, pediatric or pediatric/adolescent dosage Trupti Shelli [facility] 1995 trivalent poliovirus vaccine, live, oral Bi S Ray Work Phone: [facility] 250 DO Work Phone: 1995 hepatitis B vaccine, pediatric or pediatric/adolescent dosage Trupti Shelli [facility] NEGATED: Highlighted row has not occurred!08-08-2022 influenza virus vaccine, unspecified formulation Trupti Shelli [facility] NEGATED: Highlighted row has not occurred!02-16-2022 influenza virus vaccine, unspecified formulation Cruzito ALDANA [facility] NEGATED: Highlighted row has not occurred!08-10-2020 influenza virus vaccine, unspecified formulation Bi BELL [facility] [place] Payers Date Payer Category Payer Self-pay [id number] 2021 Medicaid [employer] [facility] [employer] [place] [id number] 2021-Present [id number] [place] [id number] Medicaid [id number] 2021 Unknown 2021 Unknown [id number] 1995 Unknown [id number] [id number] 1995 Unknown [id number] 2.16.840.1.164522.3.579.2.356 1995 Unknown [id number] 2.16.840.1.750084.3.579.2.356 1995 Unknown [id number] 2.16.840.1.362528.3.579.2.356 1995 Unknown [id number] 2.16.840.1.664379.3.579.2.356 1995 Unknown [id number] 2.16.840.1.776910.3.579.2.356 1995 Unknown [id number] 2.16.840.1.939821.3.579.2.356 1995 Unknown [id number] 2.16.840.1.628917.3.579.2.1246 1995 Unknown [id number] 2.16.840.1.666496.3.579.2.1244 1995 Unknown [id number] 2.16.840.1.626232.3.579.2. 1995 Unknown [id number] 2.16.840.1.607455.3.579.2. 1995 Unknown [id number] 2.16.840.1.833718.3.579.2 1995 Unknown [id number] 2.16.840.1.197616.3.579.2 1995 Unknown [id number] 2.16.840.1.384881.3.579.2 1995 Unknown [id number] 2.16.840.1.646979.3.579.2 1995 Unknown [id number] 2.16.840.1.245928.3.579.2 1995 Unknown [id number] 2.16.840.1.921696.3.579.2 1995 Unknown [id number] 2.16.840.1.329839.3.579.2. 1995 Unknown [id number] 2.16.840.1.441760.3.579.2 1995 Unknown [id number] 2.16.840.1.283564.3.579.2 1995 Unknown [id number] 2.16.840.1.203242.3.579.2 1995 Unknown [id number] 1995 Unknown [id number] 1995 Unknown [id number] 1995 Unknown [id number] 1995 Unknown [id number] 1995 Unknown [id number] 1995 Unknown [id number] 1995 Unknown [id number] 1995 Unknown [id number] Unknown [employer] [id number] Unknown [employer] [id number] Unknown [id number] Social History Date Type Detail Facility Start: 09-04-2019 End: 05-25-2023 Tobacco smoking status Never smoked tobacco (finding) [facility] Tobacco smoking status Never [facility] Start: 05-28-2023 Sex Assigned At Male F [facility] consumption unknown [facility] Start: 1995 Sex Assigned At Not on file C [facility] Start: 05-28-2023 Occasional caffeine consumption Occasional caffeine consumption [facility] DO Work Phone: Start: 1995 Sex Assigned At Male F [facility] Start: 05-25-2023 Tobacco use and exposure Smokeless tobacco non-user [facility] Work Phone: Start: 05-28-2023 Alcohol intake Current drinke r of alcohol (finding) [facility] Work Phone: Start: 05-25-2023 Alcohol Comment social [facility] Work Phone: Start: 05-18-2023 End: 05-28-2023 Exposure to SARS-CoV-2 (event) Not sure [facility] Functional Status Date Assessment Result Facility 02-07-2023 Functional Status N/A [facility] 11-23-2022 Functional Status N/A [facility] 10-20-2022 Functional Status N/A [facility] 08-09-2022 Functional Status N/A [facility] 08-08-2022 Functional Status N/A [facility] 04-13-2022 Functional Status N/A [facility] Family [facility] 03-27-2022 Functional Status N/A [facility] Clinical Notes 10-06-2021 to 05-28-2023 Cesilia [...] further questions arise, Sincerely, Cesilia Jeter MD [facility] documented in this encounter [facility] Work Phone: 05-28-2023 Instructions Sri Steward [...] up as needed. documented in this encounter [facility] Work Phone: 02-08-2023 Hospital Discharge instructions [...] or after getting dental care. Medicines Take tfbz-zmo-frzipdy and prescription medicines only as told by [...] pain may be mild or severe. Take tmay-neq-taliqhl and prescription medicines only as told by [...] provider. Document Revised: 04/06/2021 Document Reviewed: 04/06/2021 [employer] Patient Education 2022 [employer]. Follow Up Care 02/07/2023 21:24:21 With:Bi BELL Address: [address] [place] [address] [place] [address] [phone] Business (1) When:02/10/2023 21:58:50 Comments:Follow-up with your primary care provider in 3 to 5 days. If symptoms worsen, do not improve, or new symptoms arise please report back to emergency department for further evaluation. [facility] 12-14-2022 History of Present illness Narrative 27-year-old [...] pain8.History of migraine headaches9. History of bowel akpldnqdspai34. Possible irritable bowel jyticilt97. Small intestinal bacterial yrwjlkxvgh66. Idiopathic small fiber peripheral neuropathy.13. Low vitamin B12 and vitamin D levels on . Echocardiogram January 2023-left atrium 3 cm LV end-systolic dimension 3.3 cm LV wall thickness 0.8 cm grossly normal valves normal RV size and systolic function RVSP could not be uzpuvihjtk31. 48-hour Holter monitor January 2023-predominant rhythm sinus minimum sinus rate 55 average sinus rate 94 maximum heart rate 154 bpm isolated ventricular premature beats and supraventricular premature beats no atrial fibrillation or malignant dysrhythmias, patient did not report any symptoms and did not report activity status. If tachycardia occurred with minimal activity or at rest inappropriate sinus tachycardia cannot be pmgcwcux37. Tilt table testing February 2023-after sublingual nitroglycerin [...] situations that may precipitate presyncope or syncope -[facility] DO Work Phone: 10-20-2022 [...] powder, vinegar, hot sauces, and barbecue sauce. ?Fishhook fruit juices and citrus fruits, such as oranges, mynor, and limes. ?Tomato-based foods, such as red sauce, chili, salsa, and pizza with red sauce. ?Fried and fatty foods, such as donuts, ukrainian fries, potato chips, and high-fat dressings. ?High-fat [...] to any changes in your symptoms. Take porp-pyl-hecncuk and prescription medicines only as told by [...] you have new or worsening symptoms. Take kxmk-tmz-kdnxchz and prescription medicines only as told by [...] 04/11/2006 Document Revised: 01/08/2019 Document Reviewed: 01/08/2019 [employer] Patient Education 2019 [employer]. Follow Up Care 08/08/2022 09:22:14 With:Trupti Marques CNP Address: When:1 month [facility] 08-09-2022 Hospital Discharge instructions Patient [...] oral rehydration solution (ORS). This is an guac-ouw-ijiclvi medicine that helps return your body to [...] drinks, sports drinks, and soda. Eat bland, unhh-dh-antswy foods in small amounts as you are able. These foods include bananas, applesauce, rice, lean meats, toast, and crackers. Avoid alcohol. Avoid spicy or fatty foods. Medicines Take xdhy-fpw-jrndaox and prescription medicines only as told by your health care provider. If you were prescribed an antibiotic medicine, take it as told by your health care provider. Do not stop using the antibiotic even if you start to feel better. General instructions Wash your hands often using soap and water. If soap and water are not available, use a hand director marketing. Others in the household should wash their [...] and water are not available, use hand director marketing. Contact a health care provider if your diarrhea gets worse or you have new symptoms. Get help right away if you have signs of dehydration. This information is not intended to replace advice given to you by your health care provider. Make sure you discuss any questions you have with your health care provider. Document Released: 06/22/2003 Document Revised: 11/18/2019 Document Reviewed: 12/06/2018 [employer] Patient Education 2020 [employer]. 08/09/2022 19:45:10 Nausea, Adult Nausea, Adult Nausea [...] water added (diluted fruit juice). Eat bland, ccfk-xs-hdqacw foods in small amounts as you are able. These foods include bananas, applesauce, rice, lean meats, toast, and crackers. Avoid drinking fluids that contain a lot of sugar or caffeine, such as energy drinks, sports drinks, and soda. Avoid alcohol. Avoid spicy or fatty foods. General instructions Take lisg-xkw-teuijka and prescription medicines only as told by your health care provider. Rest at home while you recover. Drink enough fluid to keep your urine pale yellow. Breathe slowly and deeply when you feel nauseous. Avoid smelling things that have strong odors. Wash your hands often using soap and water. If soap and water are not available, use hand director marketing. Make sure that all people in your [...] recommendations for eating and drinking and take vxww-zxt-qldwrcz and prescription medicines only as told by [...] 08/09/2005 Document Revised: 12/10/2018 Document Reviewed: 12/10/2018 [employer] Patient Education 2020 [employer] Follow Up Care 08/09/2022 16:52:07 With:Bi BELL Address: [address] [place], [place] [id number]- Business (1) When:08/12/2022 19:44:52 [facility] 08-08-2022 Hospital Discharge instructions Patient Education 08/08/2022 [...] Follow these instructions at home: Medicines Take mqvd-kqe-vbshock and prescription medicines only as told by [...] Watch your condition for any changes. Take bfcx-dop-btpvqxv and prescription medicines only as told by [...] 04/11/2006 Document Revised: 11/10/2019 Document Reviewed: 11/10/2019 [employer] Patient Education 2019 [employer]. Follow Up Care 07/28/2022 15:35:46 With:Trupti Marques CNP Address: When:3 months [facility] 03-07-2022 Hospital Discharge instructions Follow Up Care 03/07/2022 09:02:10 With:Bi BELL DO, FAM Address: [address] [place] [address]- When: only if needed [facility] 10-06-2021 Evaluation + Plan note Future Scheduled TestsLyme Ab/wb Reflex 10/06/21 [facility] Evaluation + Plan note Future Appointments Appointment Date:11/29/2021 03:40:00 PM Scheduled Provider:Bi BELL DO Location:[facility] Appointment Type: Open [facility] Evaluation + Plan note Future Appointments Appointment Date:12/05/2021 04:00:00 PM Scheduled Provider: [facility] Type:MRI Spine (FT) Appointment Date:01/10/2022 03:40:00 PM Scheduled Provider:Bi BELL DO Location:[facility] Appointment Type: Open Future Scheduled TestsMRI Spine Lumbar w/o Contrast 12/05/21 [facility] Evaluation + Plan note Future Appointments Appointment Date:01/10/2022 03:40:00 PM Scheduled Provider:Bi BELL DO Location:[facility] Appointment Type: Open Appointment Date:01/26/2022 02:45:00 PM Scheduled Provider:Adela MEZA MD Location[facility] Appointment Type:BADH New Patient [facility] Evaluation + Plan note Future Appointments Appointment Date:03/22/2022 02:00:00 PM Scheduled Provider: Location:[facility] Appointment Type:Surgery PAT COVID Testing Appointment Date:03/29/2022 02:00:00 PM Scheduled Provider: Location:[facility] Appointment Type:Surgery FT Appointment Date:04/13/2022 04:20:00 PM Scheduled Provider:Bi BELL DO Location:[facility] Appointment Type: Open Future Scheduled TestsPancreatic Elastase, Fecal 02/16/22Fecal WBC Lactoferrin 02/16/22O & P Exam, Routine 02/16/22Celiac Disease Comprehensive 02/16/22Enteric Panel by PCR 02/16/22Calcium Level Total 02/16/22CBC w/ Indices 02/16/22Comprehensive Metabolic Panel 02/16/22Thyroid Stimulating Hormone 02/16/22 [facility] Evaluation + Plan note Future Appointments Appointment Date:03/22/2022 02:00:00 PM Scheduled Provider: Location:[facility] Appointment Type:Surgery PAT COVID Testing Appointment Date:03/29/2022 02:00:00 PM Scheduled Provider: Location:[facility] Appointment Type:Surgery FT Appointment Date:04/13/2022 04:20:00 PM Scheduled Provider:Bi BELL DO Location:[facility] Appointment Type: Open Diagnostic Tests PendingCeliac Disease Comprehensive 03/03/22 [facility] Evaluation + Plan note Future Appointments Appointment Date:03/22/2022 02:00:00 PM Scheduled Provider: Location:[facility] Appointment Type:Surgery PAT COVID Testing Appointment Date:03/29/2022 02:00:00 PM Scheduled Provider: Location:[facility] Appointment Type:Surgery FT Appointment Date:04/13/2022 04:20:00 PM Scheduled Provider:iB BELL DO Location:[facility] Appointment Type: Open Diagnostic Tests PendingO & P Exam, Routine 03/03/22Enteric Panel by PCR 03/03/22Pancreatic Elastase, Fecal 03/03/22 [facility] Evaluation + Plan note Future Appointments Appointment Date:03/29/2022 01:50:00 PM Scheduled Provider: Location:[facility] Appointment Type:Surgery FT Appointment Date:04/13/2022 04:20:00 PM Scheduled Provider:Bi BELL DO Location:[facility] Appointment Type:[facility] Evaluation + Plan note Future Appointments Appointment Date:05/09/2022 08:20:00 AM Scheduled Provider:Trupti Marques CNP Location[facility] Appointment Type:BADH Follow Up Appointment Date:07/13/2022 09:00:00 AM Scheduled Provider:Bi BELL DO Location:[facility] Appointment Type:[facility] Evaluation + Plan note Future Appointments Appointment Date:07/13/2022 09:00:00 AM Scheduled Provider:Bi BELL DO Location:[facility] Appointment Type:[facility] Evaluation + Plan note Future Appointments Appointment Date:08/15/2022 09:30:00 AM Scheduled Provider: [facility] App[facility] Type:US Abdominal/Pelvis (FT) Appointment Date:08/31/2022 09:00:00 AM Scheduled Provider: Location:[facility] Appointment Type:Surgery FT Appointment Date:10/20/2022 10:20:00 AM Scheduled Provider:Trupti Marques CNP Location[facility]ment Type:[facility] Follow Up Future Scheduled TestsUS Abdomen Complete 08/15/22 [facility] Evaluation + Plan note Future Appointments Appointment Date:08/21/2022 12:00:00 PM Scheduled Provider: Location:.[facility] Appointment Type:MRI Knee/Tibia/Fibula (FT) Appointment Date:08/31/2022 09:00:00 AM Scheduled Provider: [facility] Appointment Type:Surgery FT Appointment Date:10/20/2022 10:20:00 AM Scheduled Provider:Trupti Marques CNP Location[facility] Appointment Type:[facility] Follow Up Future Scheduled TestsMRI Knee w/o Contrast Right 08/21/22 [facility] Evaluation + Plan note Future Appointments Appointment Date:08/31/2022 09:00:00 AM Scheduled Provider: Location:[facility] Appointment Type:Surgery FT Appointment Date:10/20/2022 10:20:00 AM Scheduled Provider:Trupti Marques CNP Location:[facility] Appointment Type:[facility] Follow Up [facility] Evaluation + Plan note Future Appointments Appointment Date:09/14/2022 08:00:00 AM Scheduled Provider: Location:[facility] Appointment Type:Surgery FT Appointment Date:10/20/2022 10:20:00 AM Scheduled Provider:Trupti Marques CNP Location[facility] Appointment Type:[facility] Follow Up [facility] Evaluation + Plan note Future Appointments Appointment Date:10/20/2022 10:20:00 AM Scheduled Provider:Trupti Marques CNP Location:[facility] Appointment Type:[facility] Follow Up [facility] Evaluation + Plan note Future Appointments Appointment Date:11/01/2022 09:30:00 AM Scheduled Provider: Location:[facility] Appointment Type:Surgery FT Appointment Date:11/17/2022 10:20:00 AM Scheduled Provider:Trupti Marques CNP Location[facility] Appointment Type:BAD Follow Up [facility] Evaluation + Plan note Future Appointments Appointment Date:12/21/2022 02:30:00 PM Scheduled Provider:Adela MEZA MD Location[facility] Appointment Type:[facility] Follow Up Future Scheduled TestsCBC w/ Auto Diff 11/16/22 [facility] Evaluation + Plan note Future Appointments Appointment Date:11/29/2022 02:00:00 PM Scheduled Provider:Bi BELL DO Location:[facility] Appointment Type: Open Appointment Date:12/06/2022 08:15:00 PM Scheduled Provider: Location:.SLEEP LAB_ Appointment Type: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 PSG () Future Scheduled TestsCalprotectin, Fecal 11/23/22 [facility] Evaluation + Plan note Future Appointments Appointment Date:12/26/2022 04:00:00 PM Scheduled Provider:Bi BELL DO Location:[facility] Appointment Type: Open [facility] Evaluation note No assessment inform ation available [facility] Work Phone: Evaluation note Diagnosis Tachycardia- Primary Unspecified tachycardia Atrial fibrillation, unspecified type (CMS/HCC) Heart murmur Undiagnosed cardiac murmurs documented in this encounter [facility] Work Phone: Hospital course Narrative No data available for this section [facility] Hospital Discharge instructions No data available for this section [facility] Progress note No data available for this section [facility] Family History No Family History Records FoundUnknown [...] Care Team (unrecognized sect ion and content) Hvac R Instructor Relationship Specialty Start Date End Date Trupti Marques, [address] [place] [address] PCP - General Family Medicine 10/25/22 Team Status: Active Member Role Status Dates Bi Bell , Primary Care Provider Active Team Status: Inactive Member Role Status Dates Bi Bell DO Primary Care Provider Active Cesilia Jeter MD Attending Provider Active Minnie Vásquez MD Referring Provider Active Hvac R Instructor Relationship Specialty Start Date End Date Bi Bell DO [address] [place] [id number] PCP - General 12/14/22 Source Comments (unrecognize d section and content) In the event this informatio n is protected by the Federal Confidentiality of Alcohol and Drug Abuse Patient Records regulations: The Federal rules restrict any use of the information to criminally investigate or prosecute any alcohol or drug abuse patient.[facility] Reason for Visit (unrecogniz ed section and content) Reason Comments Follow-up Stress test results Specialty Diagnoses / Procedures Referred By Contac t Referred To Contact Cardiology Diagnoses Atrial fibrillation, unspecified type (CMS/HCC) Heart murmur Procedures Follow Up In Cardiology Cesilia Jeter MD [address] [facility] [address] [place] [address] Orin Barragan, MICROELECTRONICS TECHNICIAN-CONCRETE PUDDLER [address] [facility] [address] [place] [address] Referral ID Status Reason Start Date Expiration Date V isits Requested Visits Authorized [id number] Authorized 05/09/2023 05/08/2024 1 1 (unrecognized sect ion and content) No Status Records FoundNo Status Records FoundNo Status Records FoundNo Status Records FoundNo Status Records FoundNo Status Records FoundNo Status Records Found INFORMATION SOURCE (unrecogn ized section and content) DATE CREATED AUTHOR 02/05/2023 [facility] DATE CREATED AUTHOR AUTHOR'S ORGANIZ ATION 02/26/[address] [facility] DATE CREATED AUTHOR AUTHOR'S ORGANIZ ATION 04/07/2023 [facility] DATE CREATED AUTHOR AUTHOR'S ORGANIZ ATION 04/07/2023 [facility] DATE CREATED AUTHOR AUTHOR'S ORGANIZ ATION 05/06/2023 [facility] DATE CREATED AUTHOR AUTHOR'S ORGANIZ ATION 05/30/2023 [facility] DATE CREATED AUTHOR AUTHOR'S ORGANIZ ATION 06/12/2023 [facility] Goals (unrecognized section and content) Goals may [...] BE BASED ON THE PRIMARY CLINICAL RECORDS. [employer] provides no warranty or guarantee of the accuracy or completeness of information in this document.
--- NOTE | 2023-08-26 13:30 | CT_ITS ---
The [address] [address] Patient Name: CINDY LANDEROS MRN: [id number] date: 1995 Sex: M Assigned Patient Location: ER Current Patient Location: ER Accession/Order Number: [id number] Exam Date: 08/26/2023 13:52 Report Date: 08/26/2023 14:36 At the request of: RAÚL FORD Procedure: CT lumbar spine wo con EXAM: CT lumbar spine wo con CLINICAL INDICATION: back pain COMPARISON: None TECHNIQUE: Multiple axial images were obtained through the lumbar spine. Two dimensional reconstructions were performed in sagittal and coronal plane. Automatic exposure control radiation dose reduction technology was utilized. COMPARISON: None. FINDINGS: No acute fracture. There is good alignment of the vertebral segments. The disc space margins appear intact. T12-L1: Normal. L1-L2: Normal. L2-L3: Normal. L3-L4: Normal. L4-L5: Mild disc bulge contribute to mild bilateral foraminal stenosis. Patent spinal canal. L5-S1: Prominent central disc protrusion abutting the bilateral traversing S1 nerve roots in the lateral recesses. Mild right and dlow-ej-pducozcj left-sided neural foraminal stenosis. Patent spinal canal. The visualized sacrum appears intact. The kidneys appear intact. There is no retroperitoneal adenopathy observed. CT/CT lumbar spine wo con IMPRESSION: No acute fracture. Degenerative disc disease in the lower lumbar spine as described. Electronically authenticated by: LEA EDWARDS Date: 08/26/2023 14:36
[2023-08-26] MEDS: KETOROLAC TROMETHAMINE 60 MG/2 ML VIAL IM (13:43)
[2023-08-26] MEDS: PREDNISONE 20 MG TABLET 40 MG PO (13:43)
[2023-08-26] MEDS: ORPHENADRINE 60 MG/ 2 ML VIAL IM (13:44)
[2023-08-26 14:53] VITALS: BP 118/67; PULSE 88; RESP 18; O2SAT 97
--- NOTE | 2023-08-26 15:08 | ED_ITS ---
HPI - Back Pain/Injury General Chief Complaint: Back Pain/Injury Stated Complaint: BACK PAIN Time Seen by Provider: 08/26/23 13:12 Source: patient and family Mode of arrival: Wheelchair History of Present Illness HPI Narrative: Have a history of chronic back pain apparently a year of back pain according to him he had exacerbation of the pain over the last 2 days and today he was not able to ambulate due to the pain. The patient mentioned that he has been dealing with this at least for a year-old with multiple workup done and he was supposed to go for ablation for his pain. The patient denies any fall or trauma recently and he does not have any incontinence of her urine or stool , when asked about weakness the patient mentioned that it is due to pain that he cannot move his leg. Related Data Home Medications Medication Instructions Recorded Confirmed Lactobacillus acidophilus 10 mg PO DAILY 05/24/23 08/26/23 (Acidophilus capsule) cholecalciferol (vitamin D3) 50 2,000 unit PO DAILY 05/24/23 08/26/23 mcg (2,000 unit) capsule cyanocobalamin (vitamin B-12) 1,000 mcg PO DAILY 05/24/23 08/26/23 1,000 mcg capsule famotidine 40 mg tablet 40 mg PO DAILY 05/24/23 08/26/23 losartan 25 mg tablet 25 mg PO DAILY 05/24/23 08/26/23 modafinil 200 mg tablet 200 mg PO DAILY 05/24/23 08/26/23 naltrexone 1.5 mg capsule 3 mg PO BEDTIME 05/24/23 08/26/23 (Lotrexone) pantoprazole 40 mg tablet,delayed 40 mg PO DAILY 05/24/23 08/26/23 release pregabalin 50 mg capsule (Lyrica) 50 mg PO BID 05/24/23 08/26/23 rimegepant 75 mg disintegrating 75 mg PO DAILY PRN migraine 05/24/23 08/26/23 tablet (Nurtec ODT) headache Previous Rx's Medication Instructions Recorded diclofenac sodium 75 mg 75 mg PO BID PRN pain #10 tabs 08/26/23 tablet,delayed release orphenadrine citrate 100 mg 100 mg PO DAILY PRN muscle spasm 08/26/23 tablet,extended release #10 tabs prednisone 20 mg tablet 40 mg (2 x 20 mg) PO DAILY 5 days 08/26/23 #10 tabs Allergies Allergy/AdvReac Type Severity Reaction Status Date / Time cyproheptadine Allergy Severe tired Verified 08/26/23 13:10 Review of Systems ROS Status of ROS 10 or more systems reviewed and unremark able except as noted in history and below [facility] Social History Smoking status: Never smoker Exam Narrative Exam Narrative: Nurses notes and vital signs reviewed and patient is not hypoxic. General: Well-appearing and in no apparent distress. Skin: Warm, dry, no pallor noted. No rash. Head: Normocephalic, atraumatic. Neck: Supple, non-tender. Eye: Pupils are equal, round and EOMI. No scleral icterus. Ears, Nose, Mouth, and Throat: TM are clear, no nasal mucosal hypertrophy. Oral mucosa is moist, no posterior oropharynx erythema, uvula is mid-line Cardiovascular: Regular Rate and Rhythm without murmur, gallop or rub. Respiratory: No accessory muscle use or respiratory distress. Lungs are clear to auscultation, no wheezing, rales or rhonchi Chest Wall: no tenderness Back: Midline lower lumbar as well as sacral area tenderness Musculoskeletal: normal ROM, no calf or popliteal tenderness, no lower extremity edema/swelling GI: Abdomen is soft, non-distended. Normal bowel sounds. No masses appreciated. No tenderness to palpation. No rebound, guarding, or rigidity noted. Neurological: A&O x4. No cranial nerve dysfunction observed. The patient mentioned having bilateral paresthesia and numbness in his feet no vascular injury detected on examination of the lower extremity Psychiatric: Cooperative and interactive. Normal mood and affect. Constitutional Vital Signs, click to edit/add: Last Vital Signs Temp 97.7 F 08/26/23 13:04 Pulse 88 08/26/23 14:53 Resp 18 08/26/23 14:53 BP 118/67 08/26/23 14:53 Pulse Ox 97 08/26/23 14:53 O2 Del Method Room Air 08/26/23 13:04 Course Vital Signs Vital signs: Vital Signs Temperature 97.7 F 08/26/23 13:04 Pulse Rate 118 H 08/26/23 13:04 Respiratory Rate 18 08/26/23 13:04 Blood Pressure 133/83 08/26/23 13:04 Pulse Oximetry 98 08/26/23 13:04 Oxygen Delivery Method Room Air 08/26/23 13:04 Temperature 97.7 F 08/26/23 13:04 Pulse Rate 88 08/26/23 14:53 Respiratory Rate 18 08/26/23 14:53 Blood Pressure 118/67 08/26/23 14:53 Pulse Oximetry 97 08/26/23 14:53 Oxygen Delivery Method Room Air 08/26/23 13:04 MDM - Back Pain/Injury MDM Narrative Medical decision making narrative: CT of the lumbar spine showed no acute significant pathology The patient had Toradol in the ER as well as prednisone and Norflex after which she was feeling better. He was still able to ambulate and get out of the ER and right now his his pain will be more covered with Voltaren p.o. as well as prednisone and Norflex with instructed to take all his medication with food No alarming symptoms the patient was instructed about coming back to the ER in case of worsening The patient is to follow up with primary care physician in next 2-3 days or to return to the emergency department should any of the signs or symptoms worsen or new symptoms develop. The patient agrees with the following Diagnosis and Treatment plan and the patient will be discharged home. Discharge Plan Discharge Chief Complaint: Back Pain/Injury Clinical Impression: Strain of lumbar region Patient Disposition: Home, Self-Care Time of Disposition Decision: 15:08 Condition: Good Prescriptions / Home Meds: New prednisone 20 mg tablet 40 mg PO DAILY 5 Days Qty: 10 0RF orphenadrine citrate 100 mg tablet extended release 100 mg PO DAILY PRN (Reason: muscle spasm) Qty: 10 0RF diclofenac sodium 75 mg tablet,delayed release (DR/EC) 75 mg PO BID PRN (Reason: pain) Qty: 10 0RF No Action famotidine 40 mg tablet 40 mg PO DAILY cyanocobalamin (vitamin B-12) 1,000 mcg capsule 1,000 mcg PO DAILY cholecalciferol (vitamin D3) 50 mcg (2,000 unit) capsule 2,000 unit PO DAILY pantoprazole 40 mg tablet,delayed release (DR/EC) 40 mg PO DAILY modafinil 200 mg tablet 200 mg PO DAILY losartan 25 mg tablet 25 mg PO DAILY Acidophilus Capsule 10 mg PO DAILY Nurtec ODT 75 mg tablet,disintegrating 75 mg PO DAILY PRN (Reason: migraine headache) pregabalin [Lyrica] 50 mg capsule 50 mg PO BID Hold Instructions: Order Change Lotrexone 1.5 mg capsule 3 mg PO BEDTIME Instructions: Low Back Strain (ED) Stand Alone Forms: Portal Instructions Referrals: BI BELL [Primary Care Provider] - 1 week
== END 2023-08-26 15:23 | disposition home or self-care (01) ==
PROVIDERS: Emergency Provider Emergency Medicine; PCP Family Medicine
DX: S39.012A Strain of muscle, fascia and tendon of lower back, initial encounter (principal); G89.29 Other chronic pain; M54.9 Dorsalgia, unspecified; Z79.899 Other long term (current) drug therapy
CPT/HCPCS: 72131; 96372; 99285; J1885; J2360; J7512

== ENCOUNTER 2023-08-27 06:50 | Day surgery (SDC) | payer OTHER, SELFPAY ==
--- OUTSIDE RECORDS SUMMARY | 2023-08-27 06:52 | XMS_ITS | CCD ---
Author Name Unknown Address [address] [place] [address] Organization [facility] Care Team Providers Care Cyber Special Agent Name Role Phone Bi BELL Primary Care Physician [phone] Trupti Marques CNP Primary Care Provider Bi Bell Unavailable Unavailable Unavailable Dr. Bi Bell Primary Care CESILIA Keller Referring Unavailable CESILIA JETER Attending Unavailable Bi BELL Primary Care Physician DO Bi Bell Primary Care Provider MD Cesilia Jeter Attending Provider MD Minnie Vásquez Referring Provider Cesilia Jeter [...] Navarrete Referring Unavailable Tarik Sheehan Admitting Unavailable [place], Tarik Martin Attending Unavailable [place], Tarik Martin Referring Unavailable Shelli, Trupti A Referring Unavailable Shelli, Trupti A Admitting Unavailable Shelli, Trupti Navarrete Attending Unavailable SALAM, Adela Admitting Unavailable SALAM, Adela Attending Unavailable CARIDADMARIELOS J Admitting Unavailable CARIDAD, MARIELOS J Attending Unavailable Allergies Allergy Classification Reported Allergen(s) Allergy Type Date of Onset Reaction(s) Facility (20 sources) Cyproheptadine; Translations: [cyproheptadine ] Drug Allergy 4 Drowsy (finding), Drowsiness, Other, Unknown [facility] (8 sources) Cephalexin; Translations: [Cephalexin TABS] Drug Allergy 3 Unknown [facility] (2 sources) Cephalexin; Translations: [CEPHALEXIN] Drug Allergy 3 [facility] Repository (1 source) ALLERGIES NOT ON FILE; Translations: [ALLERGIES NOT ON FILE] Propensity to adverse reactions (disorder) [facility] Repository (2 sources) Acebutolol; Translations: [ACEBUTOLOL] Drug Allergy 3 Cough [facility] 3 Repository Medications Current Medications [...] for 7 day(s), 14 tab(s), Refill(s) 0, [facility], 193, cm, 02/07/23 21:30:00 EDT, Height/Length [...] day(s), # 20 tab(s), Refills(s) 0, Pharmacy: [facility], 193, cm, 11/23/22 13:52:00 EDT, Height/Length Dosing, 109, kg, 11/23/22 13:52:00 EDT, Weight Dosing Start Date: 11/23/22 Stop Date: 12/03/22 Status: Ordered clobetasol propionate 0.5 mg/ml topical foam (19 sources) Corticosteroid Start: 01-05-2023 Olux 0.05% topical foam 1 anum, Topical, BID, 100 gram, Refill(s) 1, [facility], 193, cm, 12/26/22 16:03:00 EDT, Height/Length Dosing, 112.1, kg, 12/26/22 16:03:00 EDT, Weight Dosing Start Date: 01/05/23 Status: Ordered Start: 10-12-2022 Olux 0.05% top ical foam 1 anum, Topical, BID, 100 gram, Refill(s) 1, [facility], 193, cm, 08/09/22 16:56:00 EST, Height/Length Dosing, 115.2, kg, 08/09/22 16:56:00 EST, Weight Dosing Start Date: 10/12/22 Status: Ordered Start: 06-19-2022 Olux 0.05% top ical foam 1 anum, Topical, BID, 100 gram, Refill(s) 1, [facility], 193, cm, 04/13/22 16:11:00 EDT, Height/Length Dosing, 118, kg, 04/13/22 16:11:00 EDT, Weight Dosing Start Date: 06/19/22 Status: Ordered Start: 11-25-2021 Olux 0.05% top ical foam 1 anum, Topical, BID, 100 gram, Refill(s) 1, [facility], 193, cm, 10/06/21 15:13:00 EDT, [...] day(s), # 28 tab(s), Refills(s) 0, Pharmacy: [facility], 193, cm, 08/09/22 16:56:00 EST, Height/Length [...] Daily, # 90 cap(s), Refills(s) 1, Pharmacy: [facility], 193, cm, 11/29/22 13:54:00 EDT, Height/Length [...] completed) Start: 03-27-2022 take 1 capsule by [facility] once daily DULoxetine 30 mg Cap-EC TAKE [...] itching, # 40 tab(s), Refills(s) 0, Pharmacy: [facility] 193, cm, 01/10/22 15:41:00 EDT, Height/Length Dosing, 115.8, kg, 01/10/22 15:41:00 EDT, Weight Dosing Start Date: 01/10/22 Status: Ordered LDN 1.5 mg (1 source) Start: 11-30-19 LDN 1.5 mg LDN 1.5 mg, See Instructions, 30 cap(s), 0, 1 cap po at HS, [employer], Compound, 193, cm, 11/29/22 13:54:00 EDT, Height/Length Dosing, 111.5, kg, 11/29/22 13:54:00 EDT, Weight Dosing Start Date: 11/29/22 Status: Ordered LDN 3 mg (1 source) Start: 12-27-19 LDN 3 mg LDN 3 mg, See Instructions, 30 cap(s), 2, 1 cap po at HS, [employer], Compound, 193, cm, 12/26/22 16:03:00 EDT, Height/Length [...] day(s), # 30 tab(s), Refills(s) 2, Pharmacy: [facility], 193, cm, 11/29/22 13:54:00 EDT, Height/Length [...] qAM, # 30 tab(s), Refills(s) 2, Pharmacy: [facility], 193, cm, 12/26/22 16:03:00 EDT, Height/Length Dosing, 112.1, kg, 12/26/22 16:03:00 EDT, Weight Dosing Start Date: 12/26/22 Status: Ordered Comment on above: Take 200 mg by mouth once daily. Olux 0.05% topical foam (4 sources) Start: 11-26-19 Olux 0.05% topical foam 1 anum, Topical, BID, 100 gram, Refill(s) 1, [facility], 193, cm, 10/06/21 15:13:00 EDT, Height/Length Dosing, 111.7, kg, 10/06/21 15:13:00 EDT, Weight Dosing Start Date: 11/25/21 Status: Ordered Start: 08-16-2021 Olux 0.05% top ical foam 1 anum, Topical, BID, 100 gram, Refill(s) 0, [facility], 193, cm, 06/02/21 16:01:00 EST, Height/Length Dosing, 105.4, kg, 06/02/21 16:01:00 EST, Weight Dosing Start Date: 08/16/21 Status: Ordered ondansetron 4 mg disintegrating oral tablet (15 sources) Serotonin-3 Receptor Antagonist Start: 08-09-2022 End: 05-28-2023 take 1 tablet by mouth every six hours ondansetron 4 mg Dis Tab 4 mg = 1 tab(s), Oral, q6hr, # 12 tab(s), Refills(s) 0, Pharmacy: [facility], 193, cm, 08/09/22 16:56:00 EST, Height/Length [...] Daily, # 90 tab(s), Refills(s) 1, Pharmacy: [facility], 193, cm, 04/13/22 16:11:00 EDT, Height/Length Dosing, 118, kg, 04/13/22 16:11:00 EDT, Weight Dosing Start Date: 05/26/22 Status: Ordered Start: 01-13-2022 End: 05-28-2023 take 1 tablet by mouth once daily pantoprazole 40 mg Oral EC Tab 40 mg = 1 tab(s), Oral, Daily, # 90 tab(s), Refills(s) 1, Pharmacy: [facility], 193, cm, 01/10/22 15:41:00 EDT, Height/Length Dosing, 115.8, kg, 01/10/22 15:41:00 EDT, Weight Dosing Start Date: 01/13/22 Status: Ordered Start: 06-02-2021 take 1 tablet by [facility] once daily pantoprazole 40 mg Oral EC Tab 40 mg = 1 tab(s), Oral, Daily, # 90 tab(s), Refills(s) 1, Pharmacy: [facility], 193, cm, 06/02/21 16:01:00 EST, Height/Length [...] days., # 45 tab(s), Refills(s) 0, Pharmacy: [facility], 193, cm, 03/27/22 11:22:00 EDT, Height/Lengt... Start Date: 03/27/22 Status: Ordered Start: 01-10-2022 predniSONE 10 mg Tab 0 = 1 -, Oral, As Directed, Take 5 tabs by mouth daily x3 days, 4 daily x3 days, 3 daily x3 days, 2 daily x3 days, then 1 tab daily x3 days., # 45 tab(s), Refills(s) 0, Pharmacy: [facility], 193, cm, 01/10/22 15:41:00 EDT, Height/Lengt... [...] Bedtime, # 30 tab(s), Refills(s) 0, Pharmacy: [facility], 193, cm, 11/29/21 15:48:00 EDT, Height/Length [...] Comment on above: Take 1,000 mcg by [facility] once daily. Vitamin D (13 sources) Start: [...] tab, Oral, BID, 60 tab(s), 1, [facility] [employer] [facility], Supply, 193, cm, 11/09/20 16:16:00 EDT, [...] completed) Start: 09-01-2021 take 1 capsule by [facility] twice daily pregabalin 100 mg Cap TAKE [...] 06-11-2023 Auth for Release of Medical Records [id number]# 1.00TIFF Normal [facility] STRESS TEST ONLYon 3 STRESS TEST ONLY [facility] [address], [place] [address] Exercise Stress Test Patient Name: CINDY SYLVESTER Ordering Provider: [id number] CESILIA JETER Study Date: 05/01/2023 Reading Physician: [id number] Dianna Holloway MD, [facility] MRN/PID: [id number] Supervising Physician: [id number] Rex Gaffney DO Fellow: Date of /Age: 3 1995 / years Fellow: Gender: M Nurse: Kurt Urias RN Admission Status: Rn Coronary Care Unit: [facility] Height: 193.04 cm Technologist: Weight: 107.50 kg Additional Staff: BSA: 2.38 m2 BMI: 28.85 kg/m2 Patient Location: Study Type: STRESS TEST ONLY Diagnosis/ICD: Palpitations-R00.2; Syncope and collapse-R55 Indication: Hypertension CPT Codes: Stress Test Interpretation-74080 ; Stress Test Supervision-[id number] Falls Risk: Low: Patient has low risk [...] Patient achieved Wright treadmill score of 5+. [id number] Dianna Holloway MD, FACC Electronically signed on 05/01/2023 at 3:56:52 PM Final [facility] Consultation Noteon 04-24-20 23 Consultation Note [id number] #1.00TIFF [facility] Office Visit (Cardiology)on 04-05-2023 Follow-up visit [...] Weight Tips; Status:Complete - Retrospective Authorization; Done: [id number] Some eating tips that can help you lose weight.; Status:Complete - Retrospective Authorization; Done: [id number] Palpitations, Syncope and collapse Cardiac Stress Test; [...] MG O (more content not included)... Normal [place] Tobacco Screening.on 023 Tobacco use status [facility]PH[facility] b) No -[facility] [address] DO Work Phone: [place] tilt table teston 023 [place] tilt table test [facility] Main [place] [address] [place] [address] Cardiology Report Signed Patient: Cindy Sylvester MR#: [id number] : 1995 Acct:[id number] Age/Sex: 27 / M ADM Date: 02/15/23 Loc: Room: Type: [facility] Attending Dr: Cesilia Jeter MD Copies [...] continue his long-term followup with his primary supervisor cytology. Transcribed By: MARLEY 02/15/231702 Dictated By: Minnie Vásquez MD 02/15/23 1115 Signed By: 02/15/23 1754 [facility] No Panel Informationon 02-15 [facility] [address] DO Work Phone: Consultation Noteon 02-14-20 Consultation Note [id number] #1.00CD:127 [facility] ED Note-Physicianon 02-10-20 ED Note-Physician Basic [...] and Complexity of Problems Differential Diagnosis: [] [facility] Data External documents reviewed: [] My EKG [...] for 7 day(s), 14 tab(s), Refill(s) 0, [facility], 193, cm, 02/07/23 21:30:00 EDT, Height/Length [...] BELL In 3 days 02/10/2023 EDT [address] [facility] [place] [address]- [phone] Business (1) Additional Instructions: Follow-up with your primary care provider in 3 to 5 days. If symptoms worsen, do not improve, or new symptoms arise please report back (more content not included)... Normal [facility] Comment on above: Result Comment: Elec tronically Signed By: Inocencio Yousif PA-C\.br\Date and Time Signed: 02/07/23 23:22 EDT\.br\Electronically Co-Signed By: Ghulam Masterson MD\.br\Date and Time Co-Signed: 02/08/23 23:11 EDT Auth for Release of Medical Recordson 02-08-2023 Auth for Release of Medical Records [id number] #1.00CD:127 [facility] Discharge Instructionson Discharge Instructions [id number] #1.00CD:127 [facility] ED Clinical Summaryon 2022 ED Clinical Summary [place] [address] ED Clinical Summary Person Information Name: TIGRE, CINDY Martin Nayla/[facility] Age: 27 Years : 1995 Sex: Male Language: Equatorial [place]inean PCP: Bi BELL DO Marital Status: Single [...] 02/07/2023 22:12:55 02/07/2023 22:12:55 02/07/2023 22:12:55 ADDRESS: [address] [place] [address] [place] [address] [phone] PHYS DOC NOTES: MEDICAL INFORMATION: Prescriptions Given: New Medications [facility], [address] [place], [place] [id number], [phone] amoxicillin-clavulan ate (Augmentin 875 mg-125 mg Tab) [...] Follow up: With: Address: When: Bi BELL [address] [facility] [address], [facility] [place] [address] [phone] Business (1) In 3 days 02/10/2023 Comments: Follow-up with your primary care provider in 3 to 5 days. If symptoms worsen, do not improve, or new symptoms arise please report back to emergency department for further evaluation. DIAGNOSIS: Pain, dental Normal [facility] ED Patient Education Noteon 02-08-2023 [...] after getting dental care. Medicines ? Take brol-viz-glmuuwf and prescription medicines only as told by [...] may be mild or severe. ? Take istn-apa-qomslog and prescription medicines only as told by [...] Reviewed: 04/06/2021 Elsevier Patient Education ? 2022 [employer] Normal [facility] ED Patient Summaryon 023 ED Patient Summary [address] [address] Patient Discharge Instructions Person Information Name: CINDY SYLVESTER Age: 27 Years Arrival Date: 02/07/2023 21:23:01 Discharge Diagnosis: Pain, dental Primary Care Physician: Bi BELL DO Provider Information Primary Provider: Advanced Lamp Mechanic:None The exam and treatment you received in the Emergency Department were for an urgent problem and are not intended as complete care. It is important that you follow up with a doctor, nurse practitioner, or physician?s access services assistant for ongoing care. If your symptoms [...] Instructions: With: Address: When: Bi BELL [address] [facility], [facility] [place] [phone] Business (1) In 3 days 02/10/2023 Comments: [...] opioids can be used to help relieve stlwfmuz-hw-gczzpl pain and are often prescribed following a [...] believe you m (more content not included)... [facility] Consent for Treatmenton 01-14 Consent for Treatment [id number] #1.00CD:127 [facility] Physician Referralon 023 Physician Referral [id number] #1.00CD:127 Normal [facility] Physician Referralon 023 Physician Referral [id number] #1.00CD:127 Normal [facility] CBC w/Indiceson 01-15-2023 Erythrocyte distribution width (RBC) [Ratio] 12.7 % Normal 10.9-14.2 [facility] Comment on above: Performed By: #### 2 870150, 8427228, 3643544, 70031914, 5055607 #### [facility] [address] [place] [address] Hematocrit (Bld) [Volume fraction] 45.0 % Normal 37.7-49.0 [facility] Comment on above: Performed By: #### 2 503727, 1802016, 6066111, 32215855, 3498066 #### [facility] [address] [place] [address] Hemoglobin (Bld) [Mass/Vol] 15.9 g/dL Normal 13.5-17.5 [facility] Comment on above: Performed By: #### 2 029105, 8545823, 5181751, 66934811, 9400600 #### [facility] [address] [place] [address] MCH (RBC) [Entitic mass] 30.6 pg Normal 27.0-34.0 [facility] Comment on above: Performed By: #### 2 505988, 7129673, 7067019, 10686872, 6429017 #### [facility] [address] [place] [address] MCHC (RBC) [Mass/Vol] 35.2 g/dL Normal 31.4-36.0 [facility] Comment on above: Performed By: #### 2 326107, 6530397, 9416081, 12226168, 2041116 #### [facility] [address] [place] [address] MCV (RBC) [Entitic vol] 87.0 fL Normal 80.0-100.0 [facility] Comment on above: Performed By: #### 2 325365, 5877598, 0756352, 16365216, 1244204 #### [facility] [address] [place] [address] Platelet mean volume (Bld) [Entitic vol] 7.5 fL Normal 6.4-10.8 [facility] Comment on above: Performed By: #### 2 391123, 6469026, 1409993, 34496380, 2957876 #### [facility] [address] [place] [address] Platelets (Bld) [#/Vol] 299.0 E9/L Normal 150.0-500.0 [facility] Comment on above: Performed By: #### 2 002616, 1762774, 1072716, 56829593, 5355922 #### [facility] [address] [place], [place] [address] RBC (Bld) [#/Vol] 5.2 E12/L Normal 4.3-5.9 [facility] Comment on above: Performed By: #### 2 975885, 7507669, 7640024, 42159014, 4932858 #### [facility] [address] [place] [address] WBC corrected for nucl RBC Auto (Bld) [#/Vol] 6.2 E9/L Normal 4.0-11.0 [facility] Comment on above: Performed By: #### 2 963032, 6295652, 4126180, 81886183, 3392911 #### [facility] [address] [place] [address] CMPon 01-15-2023 Albumin [Mass/Vol] 4.6 g/dL Normal 3.3-5.0 [facility] Comment on above: Performed By: #### 2 396500, 1159733, 7705242, 81373875, 4460755 #### [facility] [address] [place] [address] Albumin/Globulin (S) [Mass conc ratio] 1.6 Normal 1.1-2.2 [facility] Comment on above: Performed By: #### 2 633884, 9167926, 9616135, 01212224, 0258038 #### [facility] [address] [place] [address] ALP [Catalytic activity/Vol] 97 Int._Unit/L Normal 21-98 [facility] Comment on above: Performed By: #### 2 499588, 2940097, 4512183, 59023825, 5307464 #### [facility] [address] [place] [address] ALT No additional P-5'-P [Catalytic activity/Vol] 27 Int._Unit/L Normal 6-46 [facility] Comment on above: Performed By: #### 2 699274, 9152265, 7870224, 64500647, 5971141 #### [facility] [address] [place] [address] Anion gap [Moles/Vol] 13 mmol/L Normal 6-16 [facility] Comment on above: Performed By: #### 2 854480, 1313212, 0136360, 71036946, 9990848 #### [facility] [address] [place] [address] AST [Catalytic activity/Vol] 21 Int._Unit/L Normal 5-43 [facility] Comment on above: Performed By: #### 2 781929, 3637222, 8298778, 30314566, 3065919 #### [facility] [address] [place] [address] Bilirubin [Mass/Vol] 0.7 mg/dL Normal 0.0-1.1 [facility] Comment on above: Performed By: #### 2 959462, 6860011, 4829642, 60803275, 8274019 #### [facility] [address] [place] [address] Calcium [Mass/Vol] 9.6 mg/dL Normal 8.9-11.1 [facility] Comment on above: Performed By: #### 2 644208, 2366917, 4084096, 98051858, 3221603 #### [facility] [address] [place] [address] Chloride [Moles/Vol] 103 mmol/L Normal 101-111 [facility] Comment on above: Performed By: #### 2 599045, 3051895, 5514461, 17799635, 8346174 #### [facility] [address] [place] [address] CO2 [Moles/Vol] 27 mmol/L Normal 21-31 [facility] Comment on above: Performed By: #### 2 662205, 1129152, 3964127, 44516445, 9592804 #### [facility] [address] [place] [address] Creatinine [Mass/Vol] 0.9 mg/dL Normal 0.5-1.3 [facility] Comment on above: Performed By: #### 2 060279, 2912565, 9777081, 60734223, 4966280 #### [facility] [address] [place] [address] Globulin (S) [Mass/Vol] 2.9 g/dL Normal 1.4-4.0 [facility] Comment on above: Performed By: #### 2 909571, 4976676, 4268399, 82092452, 3834497 #### [facility] [address] [place] [address] Glucose [Mass/Vol] 100 mg/dL Normal 55-199 [facility] Comment on above: Result Comment: If t his glucose result represents a fasting glucose, interpretation should refer to the following reference range: 55-99 mg/dL Performed By: #### 2 662899, 9257091, 0183878, 78575509, 8364256 #### [facility] [address] [place] [address] Potassium [Moles/Vol] 4.3 mmol/L Normal 3.5-5.3 [facility] Comment on above: Performed By: #### 2 192363, 2199663, 7555880, 17288451, 4533346 #### [facility] [address] [place] [address] Protein [Mass/Vol] 7.5 g/dL Normal 6.0-7.8 [facility] Comment on above: Performed By: #### 2 895660, 6217293, 4137481, 75296552, 5580084 #### [facility] [address] [place] [address] Sodium [Moles/Vol] 139 mmol/L Normal 135-145 [facility] Comment on above: Performed By: #### 2 452930, 5068620, 6470998, 49839937, 8112812 #### [facility] [address] [place] [address] Urea nitrogen [Mass/Vol] 11 mg/dL Normal 5-21 [facility] Comment on above: Performed By: #### 2 427356, 3768126, 6290136, 66052804, 2315561 #### [facility] [address] [place] [address] Urea nitrogen/Creatinine [Mass ratio] 12 No Units Normal 10-20 [facility] Comment on above: Performed By: #### 2 833542, 6493890, 5691122, 69326360, 9960933 #### [facility] [address] [place] [address] Consent for Treatmenton Consent for Treatment [id number] #1.00CD:127 Normal [facility] Physician Orderon 01-15-2023 Physician Order [id number]# 1.00CD:127 Normal [facility] TSHon 01-15-2023 TSH Qn 1.42 m[IU]/L Normal 0.34-5.60 [facility] Comment on above: Performed By: #### 2 000066, 0925406, 3116837, 93421330, 4098935 #### [facility] [address] [place] [address] Vit B12on 01-15-2023 Cobalamin (Vitamin B12) [Mass/Vol] 600 pg/mL Normal 50-1500 [facility] Comment on above: Performed By: #### 2 225200, 2191381, 8800094, 33507499, 7881894 #### [facility] [address] [place] [address] eGFRon 01-15-2023 GFR/1.73 sq M.predicted among non-blacks MDRD (S/P/Bld) [Vol rate/Area] 120 mL/min/1.73 m2 Normal >=59 [facility] Comment on above: Order Comment: Order added by Discern Expert. 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 Kidney failure is indicated at less than 15 mL/min/1.73m2. Performed By: #### 2 398326, 7134426, 5468104, 36869941, 5015488 #### [facility] [address] [place] [address] Holter Monitoron 01-08-2023 Holter Monitor [id number]# 1.00CD:127 Normal [facility] Pulmonary Function Studieson 01-01-2023 Pulmonary [...] BY: Angela Roberts M.D. lr Dictated: 12/26/2022 [id number] Transcribed: 12/27/2022 cc:Bi Bell D.O. Normal [facility] Comment on above: Result Comment: [...] to be returned on: 12/28/2022 Monitor number [id number] applied. Procedure Holter monitor returned without diary [...] [facility] [address] 02/22/2023 10:15 Cesilia Knight, [id number] DO Signatures Electronically signed by : Cesilia Jeter MD; Jan 07 2023 12:43PM EST (Author) Normal [facility] Family Medicine Office/Clini c Noteon 12-26-2022 Family [...] wearing a heart monitor ordered by his supervisor cytology. History of Present Illness I have reviewed [...] increase the LDN to 3 mg Ordered: [facility] Prescription, LDN 3 mg, See Instructions, 30 cap(s), 2, 1 cap po at HS, [employer]Shape, Compound, 193, cm, 12/26/22 16:03:00 EDT, Height/Length Dosing, 112.1, kg, 12/26/22 16:03:00 EDT, Weight Dosing 2. 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, not elsewhere classified) See #1 Ordered: [facility] Prescription, LDN 3 mg, See Instructions, 30 cap(s), 2, 1 cap po at HS, [employer], Compound, 193, cm, 12/26/22 16:03:00 EDT, Height/Length Dosing, 112.1, kg, 12/26/22 16:03:00 EDT, Weight Dosing Insufficient sleep syndrome (F51.12: Insufficient sleep syndrome) Ordered: modafinil, 200 mg = 1 tab(s), Oral, qAM, # 30 tab(s), Refills(s) 2, Pharmacy: [facility], 193, cm, 12/26/22 16:03:00 EDT, Height/Length Dosing, 112.1, kg, 12/26/22 16:03:00 EDT, Weight Dosing Follow-up With When Contact Information Bi BELL DO, FAM In 3 months [address] [facility] [address] [place] [address]- Additional Instructions: Problem List/Past Medical History Ongoing [...] Current, denies, 10/21/2020 (more content not included)... [facility] Comment on above: Result Comment: Elec tronically Signed By: Bi BELL DO\.br\Date and Time Signed: 12/26/22 16:30 EDT Retail - Clinical Noteon Retail - Clinical Note [id number]# 1.00CD:127 [facility] Consent for Treatmenton Consent for Treatment [id number] #1.00CD:127 [facility] Pulmonary Function Testson 0 12-20-2022 Pulmonary Function Tests [id number] 2#1.00CD:127 [facility] Consultation Noteon 12-19-19 Consultation Note [id number] #1.00CD:127 [facility] Office Visit (Cardiology)on 12-14-2022 Follow-up visit [...] told patient that I am not an editor map, but I am comfortable starting the work-up [...] 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 While at work, he developed chest [...] not or (more content not included)... Normal [place] Tobacco Screening.on 023 Adult depression screening assessment No [facility] [address] [place] [address] DO Work Phone: Fall risk assessment a) [facility] the [facility] [place] [facility] [place] Work Phone: Tobacco use status CPHS b) No [facility] [address] [place] [address] DO Work Phone: Calprotectin, Fecalon 2022 Calprotectin (Stl) [Mass/Mass] 112 mcg/gm Invalid Interpretation Code 0-120 [facility] Comment on above: Result Comment: Conc entration Interpretation Follow-Up <16 - 50 ug/g Normal None >50 -120 ug/g Borderline Re-evaluate in 4-6 weeks >120 ug/g Abnormal Repeat as clinically indicated Performed at: [facility] [id number] MD Selvin Madden Performed By: #### 1 [id number] ####[facility] [address] [place] [address] Consenton 12-07-2022 Consent [id number] 8#1.00CD:127 Normal [facility] Patient Eval Forms Officeon 12-07-2022 Patient Eval Forms Office [id number] 9#1.00CD:127 Normal [facility] Patient Eval Forms Office [id number] 7#1.00CD:127 [facility] Consent for Treatmenton 11-14 Consent for Treatment [id number] #1.00CD:127 Normal [facility] Physician Referralon 023 Physician Referral [id number] 8#1.00CD:127 Normal [facility] Medicine Office/Clini c Noteon 11-30-2022 Family Medicine Office/Clinic Note HPI Staff Cindy is a 27 year old male who presents to review labs [place] [facility] [place]. He reports that these were [...] there is autoimmune issues. He has seen agriculture instructor which he states was a waste of [...] cap(s), 0, 1 cap po at HS, MyShape, Compound, 193, cm, 11/29/22 13:54:00 EDT, Height/Length Dosing, 111.5, kg, 11/29/22 13:54:00 EDT, Weight Dosing 3. 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 Working to stop the metoprolol and start him on Cardizem. Ordered: ECG 12 Lead Adult [facility] [place] Ambulatory Referral Pulmonary Function Testing 4. Insufficient sleep syndrome (F51.12: Insufficient sleep syndrome) He is doing okay with the new ray. 5. 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, not elsewhere classified) We are going to start the low-dose naltrexone protocol. Ordered: Misc Prescription, LDN 1.5 mg, See Instructions, 30 cap(s), 0, 1 cap po at HS, MyShape, Compound, 193, cm, 11/29/22 13:54:00 EDT, Height/Length [...] Daily, # 90 cap(s), Refills(s) 1, Pharmacy: [facility], 193, cm, 11/29/22 13:54:00 EDT, Height/Length Dosing, 111.5, kg, 11/29/22 13:54:00 EDT, Weight Dosing magnesium oxide, 400 mg = 1 tab(s), Oral, Daily, X 30 day(s), # 30 tab(s), Refills(s) 2, Pharmacy: [facility], 193, cm, 11/29/22 13:54:00 EDT, Height/Length Dosing, 111.5, kg, 11/29/22 13:54:00 EDT, Weight Dosing Follow-up With When Contact Information Bi BELL DO, FAM In 1 month [address] [place], [place] [id number]- Additional Instructions: Problem List/Past Medical History Ongoing Abdominal pain Acid reflux Autoimmune disorder Bilate (more content not included)... Normal [facility] Comment on above: Result Comment: [...] of intestine) I would suggest to start pspe-jbz-aedppai probiotics and we will start him on [...] after patient or guardian consented to allow [employer] to record this visit. HERI physical education specialist and provider reviewed before signing. HERI: Hernán Bustamante Follow-up No qualifying data available Problem List/Past Medical History Ongoing Abdominal pain Acid reflux Bilateral knee pain Bilateral shoulder pain Chronic abdominal pain Chronic diarrhea Chronic shortness of breath Diffuse pain Essential hypertension Fatigue Fatty liver Fecal incontinence H/O: migraine Idiopathic smal (more content not included)... Normal [facility] Comment on above: Result Comment: [...] PM EDT With: Bi BELL DO Where: [place] [address]-\.br\ You Need to Complete the Following\.br\ Calprotectin, Fecal, Stool, Routine collect, 11/23/22, Order for future visit, Nurse collect, Watery diarrhea, Print Label By Order Location\.br\ Medications\.br\ What How Much When Why Instructions\.br \ New ciprofloxacin (Cipro 500 mg Tab) 1 Tablets By Mouth 2 times a day Small intestinal bacterial overgrowth (SIBO) Duration: 10 Days Pickup at [facility]\.br\ Unchanged clobetasol topical (Olux 0.05% topical [...] if questions or concerns \.br\ Pharmacy Information\.br\ [facility]: [address] [place], [place] [id number] [phone]\.br\ Allergies\.br\ cyproheptadine (Drowsy)\.br\ Problems\.br\ Ongoing - Any [...] Tachycardia\.br\ Vitamin D deficiency\.br\ Watery diarrhea\.br\ \.br\ [facility] Physician Orderon 11-20-2022 Physician Order [id number] #1.00CD:127 Normal [facility] Auto Diffon 11-17-2022 Basophils/100 WBC (Bld) 0.9 % Normal 0.0-2.0 [facility] Comment on above: Order Comment: Order Added by Discern Expert. Performed By: #### 2 [id number], [id number] #### [facility] [address] [place] [address] Basophils/Leukocytes Auto (Bld) [Pure # fraction] 0.1 E9/L Normal 0.0-0.2 [facility] Comment on above: Order Comment: Order Added by Discern Expert. Performed By: #### 2 [id number], [id number] #### [facility] [address] [place] [address] Eosinophils/100 WBC (Bld) 2.2 % Normal 0.0-8.0 [facility] Comment on above: Order Comment: Order Added by Lopez Expert. Performed By: #### 2 [id number], [id number] #### [facility] [address] [place] [address] Eosinophils/Leukocyt es Auto (Bld) [Pure # fraction] 0.1 E9/L Normal 0.0-0.5 [facility] Comment on above: Order Comment: Order Added by Discern Expert. Performed By: #### 2 [id number], [id number] #### [facility] [address] [place] [address] Lymphocytes/100 WBC (Bld) 32.3 % Normal 14.0-50.0 [facility] Comment on above: Order Comment: Order Added by Discern Expert. Performed By: #### 2 [id number], [id number] #### [facility] [address] [place] [address] Lymphocytes/Leukocyt es Auto (Bld) [Pure # fraction] 1.9 E9/L Normal 1.0-4.0 [facility] Comment on above: Order Comment: Order Added by Discern Expert. Performed By: #### 2 [id number], [id number] #### [facility] [address] [place] [address] Monocytes/100 WBC (Bld) 6.4 % Normal 4.0-14.0 [facility] Comment on above: Order Comment: Order Added by Discern Expert. Performed By: #### 2 [id number], [id number] #### [facility] [address] [place] [address] Monocytes/Leukocytes Auto (Bld) [Pure # fraction] 0.4 E9/L Normal 0.2-1.0 [facility] Comment on above: Order Comment: Order Added by Discern Expert. Performed By: #### 2 [id number], [id number] #### [facility] [address] [place] [address]53 Neutrophils/100 WBC (Bld) 58.2 % Normal 36.0-75.0 [facility] Comment on above: Order Comment: Order Added by Discern Expert. Performed By: #### 2 809784, [id number] #### [facility] [address] [place] [address] Neutrophils/Leukocyt es Auto (Bld) [Pure # fraction] 3.5 E9/L Normal 2.0-7.5 [facility] Comment on above: Order Comment: Order Added by Discern Expert. Performed By: #### 2 [id number], [id number] #### [facility] [address] [place] [address] 16874 CBC w/ Auto Diffon 3 Erythrocyte distribution width (RBC) [Ratio] 13.2 % Normal 10.9-14.2 [facility] Comment on above: Performed By: #### 2 488974, [id number] #### [facility] [address] [place] [address] Hematocrit (Bld) [Volume fraction] 44.7 % Normal 37.7-49.0 [facility] Comment on above: Performed By: #### 2 666491, [id number] #### [facility] [address] [place] [address] 41775 Hemoglobin (Bld) [Mass/Vol] 15.2 g/dL Normal 13.5-17.5 [facility] Comment on above: Performed By: #### 2 621772, [id number] #### [facility] [address] [place] [address] 73263 MCH (RBC) [Entitic mass] 29.5 pg Normal 27.0-34.0 [facility] Comment on above: Performed By: #### 2 659479, [id number] #### [facility] [address] [place] [address] 85324 MCHC (RBC) [Mass/Vol] 34.0 g/dL Normal 31.4-36.0 [facility] Comment on above: Performed By: #### 2 490071, [id number] #### [facility] [address] [place] [address] 48907 MCV (RBC) [Entitic vol] 86.6 fL Normal 80.0-100.0 [facility] Comment on above: Performed By: #### 2 073278, [id number] #### [facility] [address] [place] [address] Platelet mean volume (Bld) [Entitic vol] 7.3 fL Normal 6.4-10.8 [facility] Comment on above: Performed By: #### 2 642431, [id number] #### [facility] [address] [place] [address] Platelets (Bld) [#/Vol] 270.0 E9/L Normal 150.0-500.0 [facility] Comment on above: Performed By: #### 2 975746, [id number] #### [facility] [address] [place] [address] RBC (Bld) [#/Vol] 5.2 E12/L Normal 4.3-5.9 [facility] Comment on above: Performed By: #### 2 580549, [id number] #### [facility] [address] [place] [address] WBC corrected for nucl RBC Auto (Bld) [#/Vol] 5.9 E9/L Normal 4.0-11.0 [facility] Comment on above: Performed By: #### 2 682392, [id number] #### [facility] [address] [place] [address] Consent for Treatmenton Consent for Treatment [id number] #1.00CD:127 Normal [facility] Coding Summary.on 11-06-2022 Coding Summary. CD:[id number] Ww+PGhlYWQ+AM9DLRJiM 84yhDClgJ9hI8VEBHkPV ywgQVBQTElOSyIgbmFtZ C5vzGBzWXNb IC8+IS5jQDGySdigtRUf l9G3vRM5K05xmg6wTCsu eRA4LDJvQuZxazuah2eq zXg3KGuyPbbvYeUy ZOLvjU84NUB1vS91Lr84 eZKpeONal1rbqHv7VgMh DPHcBLV4rRhjTRqpa0Rd TKZzC77kgOCnj4J4 IGNvbGxhcHNlOyBlbXB0 vU6vRBbnvwcja8umcsnp Iwm7ws14wFTxt9M8oKB8 W3EvfgI4QFGxfBZf BapudKRRfG4urtxbn5xw ooffCvXpBCRxMEf9CKu7 LXRfqStuCqBpKD55FKC7 JCEwbvWsI6BtJXEe oLzsDgS5k7N3Wh2DM1JD EayvU6ZOQCPQDAsqrMN+ WL35qs20I7RhDfooQgo1 CBVbGUE0oKL1yG7g UBEbIThoi4Z4iAS7N2Qs ynUnjy2fb8ruEIMaIEjl L35orFFkl7O8HLYopQY8 BUZfnVbfIiBqxR81 Oyc+JECdyAuhq3HhGwsu c1jjz4jyzZk2PyubWNKg srBgpZsyEBZ8k9MvXr2x POFpoQD8xLX1aB9c RxUfGlT6YZlhD380QcUa aGVcAbyaL01nU1EpsPI+ PSBkUpc3LCYlkFhdBB6o D7RwCQOomcrjaTSm dMxoZI0bLTAmaxctRKZj pH1tFIAeH0n4SlPjDvZ7 LKarD7LtYJQubllxLk86 tU5tVrDuJbN4IOny I4WfgeG1WMHhfHMwTDua ZNO0K77aa5S2VXHxXJWx STZ7pNL7aR0faOnavxka bGVmdDsgdmVydGlj UDdsKKmtN920SDWrxQxc PkNvZGluZyBEYXRlOiAg MDQvMjQvMjAyMzwvdGQ+ SODoUXK0eFksJWJc jANpAExnSk7miIfoiSuk AI1pTUHrugveWOFbpO5b JKIvzTXdlEdvMH7wNFBj ynkct378RnDhLMF0 GKSmbFSkU3SawQ5qViRf VUWvUEMxT6EhlNExKDkj H897INlcYzZ8OMRdlmXk W5GtNGGhvOndUjC8 i3W0Yy8Fe8LloyjjO0Zm mRXpJlMqGkghYVq0X1Ua PjwvdHI+TS47HFAtIL38 TSh7MTO0aEzySXwj FFEdS7ZqxR1jHuSjXMUx ZGRkOyc+PHRhYmxlIHdp ZHRoPScxMDAlJyBzdHls GI3lAi5wSUWvNNYe eSrezYUgXbDtv2oiUWSs UCqmQJ3vbMdlQ3IvuXS2 PRIqh4f1Wg89L08hA7Cu dXA+VZSwuGC2qXQ2 hX4rTjClVaL8VMqrS326 JoLrzMNlZsopd6jzk3po dQh8QmH4GWBvwhKrxKkr ONA6n9FvLl71S31g IHdpZHRoPSIxNSUiIHZh aRseqa7giI8hDm5+PGNv pFG1bCE1aG6vXvOuWbX3 OWhyZ872FkHiyLXf Qszlo1ekl1humCy7JzKa CZRyaaPozNpxTJJ2l0Pw Ib25M1DlaXljt4HdQwv2 il42tZAvp5Q3nGR1 Y5PaFQOtgrkxvPUnvBvt JF4nEEHlcjnfVYSltR9d MUGaJ2k1JdRiWsW0KLze B8XejcO2ZNXkzLFw XFMmgQXVkO8plshdr5ie ykkvBpIuUOOvTUy3BPh8 MVQihKjdMxMaSCZ2IfS9 ULS3yFCwmX0goHvl obkcmU5dPys+DVE4gBXf yJFPRH9xQjppfRF+PHRk JDR7kQcsCPbwJIZakA0k JZCcV7a0TqCvDeW6 ZRhdY3SusbO4ZSCssVQy RDIcfGGHqN2xsrlzn8ou xndhScWzLJVoQMq6QBc5 LWFsaWduOiBsZWZ0 ZcL5PBC5wGYzeY0apJyn pzpysC7cMrc+QmlydGgg YOW4GGv7X5YzFxj4EQFb oCxvPE6jgFMcGRcj Ow7tfVlwrLjiWR1gKKAw avect753HtQuc3vyJYZj oECzAPqqCZF1J75iv1J6 MQKlJBTiEGG2gCG1 nJ7upWmfanljiJGefBqf auLktCnmFXszZWutB317 GUXpcMbdAoYbZCw6R1Rf Fzi8PIUhcNxcWB8c nPLxTQojXg1yiMjhnDcb BS6jJFAwyplxj422SdEy k9zqGIIhoXYkWPafMLF5 N04hs5X2ZISoPRRh WRU5tOO0lL5wsFivtvce bGVmdDsgdmVydGljYWwt LCyqE247JWWoxOfeEuBj mDh6G1LuCpe3ZOOf hUrqXA7kxNGxNBjqYp0d qAkgkQgrGP2gODBcgyyx d338CdIfb0ygGIFogJTm XDkePFF0U40ok0V7 DYOdKLJeAMT0wTW7dQ9h bGlnbjogbGVmdDsgdmVy jDlnHQcdBDfxP651FJFb cDsnPlBhdGllbnQg OEthZUw2V0KeJukmiCQ+ HL91SBDbOE52gNNzuBZf s6wrxMj9VgGhLPJmCYC8 oRlzYQozb9RkWYIp Q26uzSGax0Z0TZQbwAfn cFZeYoKdmWG7tC4vOUkm wjncq1xrlgimDhcvj5tx uo83xY04M96wIRbj ZHRoPSIzMCUiIHZhbGln ba4wjG2lDh3+PGNvbCB3 jRY9uV5xANEeVcA7PInn G544IvUztCGvTnjb p4trf5uljDd1JxP4WLWg ooJnnIrpDMY9q8HbRg38 S52fGGccQPTvXDNbNQZw NKYpsLvqmv1rlB7t Ii8+CZDnhKG5pAL5wH6i VnLpPnX1VJqkP925RfLw aYPjYmjtX60bS9XkoLO+ UECoIsi7WKWscExa QT6xbTOvSSmeDw5mUYJ5 YpQvDpWuBSwqZ8JuSRNn zqrukmxkbRI4VTIuZUAg iD59At5ngQydNPYp aUXHlM5qqyhzl7ymkxdr OwNlGBAmBJf3PIl2SRUm fKdmClEvYEN0KiU1QVS3 pKHhuH6otHxrwcrs cK7uS2EhJAEqpylhVs28 nA2mAwOcFjG6DZpqOny+ Nh4SLLJRS0oGVEVPNR0Y QVMgRDwvdGQ+PHRk OVF4tGjqPDhvDMUltP4q ZEDhM5f6LdBgJjA5FWzh Y8VkDAMpyttfYj95dD6d DfQqUoU1QZskI8Gx siB5GEBxkKEoFXyeJIF7 M00mv1Z6IEBxJJLoGVV5 lOV1nD1cyYpktxejqCWt dDsgdmVydGljYWwt ULajF095HYBneYpfCmWa TpB4ErB7CVS2B2ZxDsg1 PJAacDxlBT7xlPBaIFyv Tj9lwAtztSoeMG7b XMUiphxlUKIwmE5gXTFv wJGxqWnfVD5wDIFmstnr u662IlGzNKI6FJFeeLNy Q1EtzJ3sOlJvQHKo ODJtZ3KvvZWqCWedL282 JEqmLqF5IZSasuPaC9Gk JDToeDmnOyC1m4A6De7m NyBZZWFyczwvdGQ+ YQOgEWO8jAgpSYjwIBCz yT5aOCNrR4v1JcJsOzK9 YAsaC4JzHRSwlwxmUz52 tR4aVgGeVoG6SFes X4BxamM4JWOyjUEjDIez FSU6X99nt1P4DMKhHXPu ENF1uDB8mG5fpUlxilcf bGVmdDsgdmVydGlj EMqwYXpgH571EBVtnFxv Az1niSC8M9UyIlx0MEOp yZdjMR4xmLQcSXfsOs3z pIkptJnbPX2iGNUl vrhbWMLatC6pOEQkrFIp lEkkPT4rHTChxjxtd631 NsTcOBB3ZHYbsJRoL5Ib sD4aZjXiETSoDKZb V2QyuTSmXLcaL876UXhx LsQ0ENXuvhMwE6OmWOTp gEihFyA0g4X0Xx2KoZCd NUKhQZ13OZ08OH88 I7YjXwjrtMQdgMP+PHRh YmxlIHdpZHRoPScxMDAl MzPiwCdeKN1lHo4qIWFr LWNvbGxhcHNlOiBj q8ebQFDkJNekGF2hgDfa F9MpqWG9HDDkm8d6Ry29 Y84gQ8JwsYD+PGNvbCB3 uIA9pL6iVdMjZpW8 XDpxQ381XmRueEYjYobs q0cma8kboVi0ArJsVVTy lfAnfDncHWH4y4XoDg75 V51vYDvoJSSyJZEb REGjBQHraQojhq1veL7y Ii8+YMJgkTS1vJP4fK0w IcYyQvC9TTvlA814NeKa kDJaHdmyZ69uY8Be dXA+AJYoUec0LUJwiQnj TJ2uoJIrMObbBp3qXOX3 YtTvWaVhUWgoW9XiOBEh nodhzzrysHM8UUFk SXCkqA64Bg7gnTcjLh2f ELUuTKN2BXHsxGQlW2Yc lC8sYwSpMRAwWVLxW0Gy uOFeTFdqN105XUjm ItH9GVHlfnMgN1EiVFPk uEqtVlM8w8G7Fd0GyRae gMRwUJ0lIkVyXWo6G5Cu Azz7UQPcsXdzXY3q iLFkGMkxRd7miIpuoFjj US0rSUXfeciha923ExRk k7tnSNQeuFRfYNvcWVO7 W29of3Y3QSEdNRFj FKN3xMU3uY5ybGmczxkz bGVmdDsgdmVydGljYWwt JNvoP553EXZauRraVdCF Fzi3B8MgCzx0UIUf iVvfSR2aeICtVVlbYj3a bIrpbQkaWO6nRJJwdcfo h031ZwJzg2upEZImmQRc FThyOPM2K65ld4H3 GGUsIYAsHWQ6oQR6iM0c bGlnbjogbGVmdDsgdmVy eKxhZWmfHUxuA379DRNx dRicXe4CIto2L2Kx Cpd7XWYdrVoqNY0xtMOl NUrzTc7hePxrpPgeIL3b FNEsuqxuq125UsDxi9tl IDEwcHQgVGltZXM7 I74wr8V5KNNxOXIlKCG8 aEP5qC1jnLselfkdrXPp dDsgdmVydGljYWwtYWxp F543UJTzfTugAdWh eWVyOjwvdGQ+YE52oe54 I7YvSsviNfe3VCOtYWK9 tPW2xG0oUJMgOOkpo7V6 gOA7P5CbqoHkbo1x m9zdDLIy (more content not included)... Normal [facility] Coding Summary. CD:[id number] Ww+PGhlYWQ+KI6XVOGcL 28waXZyqE8iM2LRXLeVF ywgQVBQTElOSyIgbmFtZ B1csNQnWYUd IC8+RP0yEUNpUgrmnKFv z2X8vNN3F38uep4lYDhf zJN3UNUeVeTugxafw0rj lBy5TNbzGjcvJcJm TCOzvL95JZW0vH36Ab67 wLMscRChr5xqcFx2UeJv ZGGyDEQ0kUglBAafg9Lx NDKjY23upQDsm8A0 IGNvbGxhcHNlOyBlbXB0 pD6uNZenhltem6kubofp Non0vx98zMQbc6B5xYP9 E3PicuU9ZSYysLBg KyfssXOKxN8mcbkxc8zx ukaaKuNzDHYjQLc0GPb3 WJWudPezLxMhNV44ADQ3 VDMxauMrX4UyUHGt cZckVzW5u6F5Oa4VW2PO SdosP6HNQDNKGGfrxWG+ JN67ik44I8AeGwfgZgp0 BVNwBRD4sAX3zD5q TEJmOZaop0L7jXY8E3Dr ubXvfx6ys6ffIIBhKKed T11nxHAtk8X4OBJnpHL4 WGOvcOqvVkNymL12 Oyc+IZApiXxjq0PpPavu u6hkl0bdxCh4WhwtZSZz avCsmOfxCHV5l1OnOm6o WHWnaQH2fNW8yY9z YxBqHwS7BZpiM167XiAh fPMeJuhtX40zB9WynVI+ QFNiFte0FEYqvVtcBQ2r H0YrQDCygriqwTZt xSvtSO4eKNSujreeUUEa bU7kKGJfE0r8ItWzSiY2 NZrzP6RpKNPbmligKa31 kU3cMiCsMqN2RHgm E3VssoI3HJBoyBMqZBns NGC9I49ae3A0ISCrDAXb JQD5aET0qY6mwEwjjyie bGVmdDsgdmVydGlj FVmpTBrcM268WCMpgJgy PkNvZGluZyBEYXRlOiAg MDQvMjQvMjAyMzwvdGQ+ EGHiBOL0nBwfBCJe mUJxVAolRw5pbLajdZmw MG6uFKDffneuNCRpxS8x GHGrqWJrgAaiUB1mQPPd otopu971NvKnYBG4 YBZrtLOaN6EcgK8rIdFg XPMaXRRgH3SljYCeFMif N526JJmhWjU7SBZlyrEs S2HoLTDwfDqqGiL0 y9N6Ao6Th3TehpmbO6Iw yFMaMlHiKyozBOx8D6Yh PjwvdHI+JM49BUFfWB29 IHb9HOR8qBrxKNkr AJFpJ4IsfG5hRxUgRBBw ZGRkOyc+PHRhYmxlIHdp ZHRoPScxMDAlJyBzdHls LL4xHk0pUUWrMUIg aKcifFFwShUok6lvCFIa YHsxMY5heBfvX4MwnJW5 JZHpw7s7Rj33Y06kB6Xe dXA+VIOrrKA3rEV0 rG6rHuNrJtD0HWlmE601 MwCdaJWjQdndb7ulh6vr yIv6VaZ5LMRhnuTbcHan KZR8n0CuCl01A34q IHdpZHRoPSIxNSUiIHZh fZxffa0odK0lJb8+PGNv oLM1lRM1jE0bPjYtKiW2 MHdzZ575QlOnlNFh Xjgkp8gko2iplPf4PmYh NBPdvgGadRmtGPA3b2Nh Se16U0AfyOgrr1AsXfl2 jr62yKTma0D6dYH2 K3JwPKDyhttimFGyrXdk XT3zLDVrpcotRCEvlN3k VLIlH5h7GgGqSjS7DSqw V2KqqmP5MXIwfDRq VGTiyLVUmP6pocrbi3wd vfhiFqAkBLCfAXn9WNw0 YZLthSdlZaKdWCF9VeF8 EYS8uCAeuC7hrIlg mmvdqO1mHcx+DFF0zFJc jYTNZD4jEkwbwTV+PHRk GGM2cJliWRdlUMEdxS8y KIGgI0w9PmQxVqO4 LNhrR7MekoF8LHQbmYOo XWShnNXRqX9sgnafs3uq pjiuGuDvCTDqEXt3YNe8 LWFsaWduOiBsZWZ0 FxW1JSE4eYEpzC4uxKxz frjkbJ0fBzk+QmlydGgg FUZ7EHi4P9ZtMkz4CPBb gQmlUW1zyYMjOPhz Hp0adTcwuLuqFQ3aZCYw uwiei295FfQco9ufWMQy kVZaJRtvBUK2K94wd9K6 HOArYAXsPTR2yJI0 dP4gaXorpqxogCPzjTno spVbvExnBDqqNYbjY281 HPMfqEfaReQaKUz5P4Oa Brp1GUVweGawLZ1i sQEiXNvuLr2dgDlwgZxv LY0yFNGnxaomr185OjCq l5qmSUElbGXuMUnxCSM9 W32zf9B5QMJiBQUs QAH6hNJ7tM0ztGnmtiee bGVmdDsgdmVydGljYWwt CRwfJ331OTVchGgbViAf jPp1W3MeNub0VXPq tKgvBV5lyFMxZXpqCt6i vIbexUzsFR0nYQHpchww h998DeTwy0zmSPBraBHm ANnePUN3R19el8V8 ZMGzNMDbUEV9cEI3jM9f bGlnbjogbGVmdDsgdmVy zIfbWVwmJKcoB272AEZp cDsnPlBhdGllbnQg QMwdBCl3Y2NbOtfyoWU+ IP79MYUuKO80eVZsbKJl w8pqgQz2SxKuOBOkKAZ5 aZnqHFofo2XuMJKx L79ttWTvt7U4DDDrzCka eMVgXlPwiQA9wH2hCRqn efmsy5hlndblTjqrx2ia wl16uV45Y06sMAte ZHRoPSIzMCUiIHZhbGln vr3veK1aFs7+PGNvbCB3 qKP4iE2wVIVbMsI3DZop R068RoNxdQAlNbfi i8kur0dgoQv5NhS4HWSc quCcpLoeUXZ1b3TdDw69 Q21wROjrMYAwZELwPWZe OFTsnRtmsc3qdN2t Ii8+GUMphJO0hSW2sQ1s WwAsOpS4KTpdG114CtCb sLWjWqdzP90lM3UtxMV+ BGFcHpp0TPJpjUbe YS1cdQJwOPrpFt4dTJZ9 JaFoPfHdSQfyF2IhXGCz wqvnnkogbYU0AJAtNSTw iN38Jz2nlWxzVZKi mPWVlG4edrvyt2fvrbba QvExPXTjAZk6YCu8FLZn mRzqCiLjDFN0RyJ5EUK3 oIOdrM5tlMaoujto yA3pG8JsFQExdmskYc12 kJ1lRaWtRvZ1WKcdKxt+ Tm2EECJQU2cMOMZAHW8B QVMgRDwvdGQ+PHRk HHA7hKtzVGafAONblQ1x GBKzG9c5GmSgRjB1MUca R4OyBYZsgdetLb40hU4z JrPpYrJ1CDmwO1Em rgX6UMKpjOXfBQpmBKQ2 N22sv7J8EAAqHKWlTWN9 nOA5gE8ouXxmvwxmyYWu dDsgdmVydGljYWwt GAisF525OHZzzZhgJoIo GyA0FpS9KOX9A2ZiBsm4 FODmhAodZF3tsDPoEVbn Zl6qpAhfbJunRB0z FHZjdnhtTFAsjX2qIXJk iPVymCykYM6dEMZjwudy z227LwKdZXX1NRKmvEPv C6YmcJ9oSdWfTUOi JATfP3VucYTsCMdkM506 FSskKpI0FUScbrTzY5Nq RVAidRblDtG4s4V3Ed0t NyBZZWFyczwvdGQ+ BVWhEHA6tFlaUXeyYLIe yG1eSYLrR6g1VeXgUrG7 OBdoQ9HmSGHefngmOc96 nC7yHzKuBjM8CBvn R4NpowI0NGNuwZWnPWdq QMH8Q92pb9K7KQLuHDIb OTC6uUF6nW7dbOvmuppi bGVmdDsgdmVydGlj KUavFRjxI456BQUdxYad Ou3ujXX9L9OqItt4JAVx nQvnOF4ruTOkCJixOr5z qSvljHehLL3rUTEm slpvZLCtkL2gPNSjvTRl xJenEC3dTZUnhdajw582 ChElDOE2MNLrxJUbO4Kk uK8mZjZkLVJwOCRd R5FrbZYaOPjdV396ZIni KfR8SXOoziDkJ6IcLZWy rSimVhM6u4B6Tw4ItBMe TJTmZJ43AT17QW38 N1EcDrociGWwzYD+PHRh YmxlIHdpZHRoPScxMDAl DlVksWejMH9aRw6yLMMh LWNvbGxhcHNlOiBj e9xoBQHaAGrrXI2agFba I6PzqQF8ORHts1u0Yf86 H76fH3EupLN+PGNvbCB3 nIM1lZ9nGcHmRoM0 LBpfB484DkYduKMkWmff w0czb2olmNa2JuIaKPFe asEzqPxwEAF5q5IqGf63 B26jFBkjJUFkFPHx EMIsPPXapXralb2qiS6c Ii8+XMQqyRW9jXU9sP7a JnYvHgG3XUqpG625DjZn nHOxUudhR90uU6Lj dXA+VNRqHij9DRMdfVam SY1eqVTrXQlvGf9fTWY9 LsImBhNoDHzxG4PzPULo nbmtijwkbAZ9FKTr UUQywU03Ux3bjTkvDt8a NFVtIVU4UUXhzXMbP8Hb gO3wTnYiAVBkYTFqW8Gj tLIrZIffZ051CDwm UvF3TPCbyqHdE4UzLSCv xCwoLxG4n8I7Aw3EsGgz aCJsVH5bCzYbDUy8K4Tf Yzr1SBFuzSzzHG6l uNLwWDxiMi5dhVtlwScc JK4pGGJhvpykc379BtFg z8ayEMRhjNLnBAdgUJL4 X28lp4B8VKOaHKMh NZE6cLK4bX6ocIrgrwxq bGVmdDsgdmVydGljYWwt CDpmY832DVLdnRgmMaZG Wmy8V2GsBbc1CVJt oQdvGM5bjECyAVtpYw3s vJubpGifDT3zNIMlhwsd a889ImWzx5wvHCIijXRs JWdlOPF3U35rc3R8 ERYzVRYwVJQ9pZV9cP4g bGlnbjogbGVmdDsgdmVy xVduEHrmVYqiN541EXNk oYlnTa2NQsm5F3Da Kpz6WJGcqBpmEZ0moVMf UUdrVc2ooWuvxZycDN4w WENirscob077LtSgi9co IDEwcHQgVGltZXM7 J30ov5N4KVEqFNPmUJD3 sMZ9eP2maVwbgvnzvEHf dDsgdmVydGljYWwtYWxp I353GIYgvMwqJgOp eWVyOjwvdGQ+PF37mu43 G1KsLfymJxt5BUUtBDO3 qAR9jB2gDRZpLOixl1S6 uDQ6X8YnlxCgou9w w5qnZNRq (more content not included)... Normal [facility] Postoperative Documentson Postoperative Documents [id number] 6#1.00CD:127 Normal [facility] Physician Orderon 11-02-2022 Physician Order [id number] #1.00CD:127 [facility] Pre-Certification Formon Pre-Certification Form [id number] 5#1.00CD:127 [facility] Auth for Release of Medical Recordson 11-01-2022 Auth for Release of Medical Records [id number] #1.00CD:127 [facility] CHEMISTRYOrdered By: SYSTEM SYSTEM on 11-01-2022 25-hydroxyvitamin D3 [Mass/Vol] 29.7 ng/mL Low 30.0 - 100.0 ng/mL [facility] Remisol Cobalamin (Vitamin B12) [Mass/Vol] 296 pg/mL Normal 50 - 1500 pg/mL [facility] Remisol TSH Qn 1.27 m[IU]/L Normal 0.34 - 5.60 mcIU/mL [facility] Remisol Consent for Treatmenton 10-14 Consent for Treatment [id number] #1.00CD:127 [facility] Consent for Treatment [id number] #1.00CD:127 [facility] Consultation Noteon 11-02-19 Consultation Note [id number] 8#1.00CD:127 [facility] Physician Orderon 11-01-2022 Physician Order [id number] 5#1.00CD:127 [facility] TSHon 11-01-2022 TSH Qn 1.27 m[IU]/L Normal 0.34-5.60 [facility] Comment on above: Performed By: #### 2 [id number] ####[facility] [address] [place] [address] Vit B12on 11-01-2022 Cobalamin (Vitamin B12) [Mass/Vol] 296 pg/mL Normal 50-1500 [facility] Comment on above: Performed By: #### 2 [id number] ####[facility] [address] [place] [address] Vitamin D 25 Hydroxyon 11-01 25-hydroxyvitamin D3 [Mass/Vol] 29.7 ng/mL Low 30.0-100.0 [facility] Comment on above: Result Comment: Vit puckett D deficiency has been defined as a level of serum 25-OH vitamin D less than 20 ng/mL (1,2) by the [employer] [employer] and an Endocrine Society practice guideline. The Endocrine Society further defined vitamin D insufficiency as a level between 21 and 29 ng/mL (2). 1. IOM ([employer] [employer]). 2010. Dietary reference intakes for calcium and D. [place]: The National Academies Press. 2. Deniz MF, Erik HERMOSILLO, Jaqueline VARMA, et al. Evaluation, treatment, and prevention of vitamin D deficiency: an Endocrine Society clinical practice guideline. JCEM. 2010; 96 (7):1911-30. Performed By: #### 2 [id number], [id number], [id number] ####[facility] [address] [place] [address] Physician Orderon 10-31-2022 Physician Order [id number] #1.00CD:127 Normal [facility] Coding Summary.on 10-27-2022 Coding Summary. CD:[id number] Ww+PGhlYWQ+AZ5XKRBjV 06dvAKofR5oV4KCBNtQM ywgQVBQTElOSyIgbmFtZ C4zlNIoPOIg IC8+NT4kXPCvQagtqFQn p2G9mWM2B52hoh7oWBmf pLT7EPCkDwUrjqzjw0cn aNm8VIwbTeqnJnRo MBRwaA50AVN4aC64Vo11 gRDpkXFip3njzTc5BoIw MRDnBRT2xRbdRDxpv7Wi QRXxO34wwLVzq8K1 IGNvbGxhcHNlOyBlbXB0 oJ1tRPlqoyqyx9oftqiy Nql3ad53hKVro6W9eGP8 N9UtbvJ1RKTrdZCm AjgrwFPYaE6thytgo4py ciuzDzPfJKDhOIw7BOv2 SHXhcIdcTuTaQE70VZL8 OZAkwuPfU5YoQCEm bJmeBlO5s3W4Ll4VN3LC AtzuW7RJNKRPFRvwqNL+ GG40qz19C8UoSlmuRxv5 ZUSmKAK7vBV4fI1v LDFyGNlig0D1kCC1Z6Eg uyHcqb4wv5xpZGMmOOpf L91ufZWuh7U1YSHxkAM2 DTFogHacNrOteN10 Oyc+SBFzuPqid3GrWwdt d5muu8cqpZu6XzmcWHLh saMdzSzwALE3l5GwMv9h YAMafWS6gLJ7zP6c HyDlXkB8PRhzK304FbPw lIVpNkilR51sC1ArgSD+ SQAkWll4LLLohNqyMA7a J4HsWCLuljywkFBe iKgxBM7zCGMuwuwhBGLx dY7cNERzW6t9OeLeArG8 GCskD8AcUJUirzkkGb29 qD3mCjXtTcF2EBgf R2IsjfL4TNFhjQAhEPlh GUP9T43ja5E7SIDmCSDv GQK3kYN7eV4clUxugwga bGVmdDsgdmVydGlj HSxrRQcvH544UTXtvZcc PkNvZGluZyBEYXRlOiAg MDQvMTQvMjAyMzwvdGQ+ AVAxJMH0lVadENNs tWAiOXcoCx2lbXzcyVnv QW6mYCDsmjxgGGGjvY2z MKPjuVYinQfbWQ3rQNZh ykxvw376FtYkLYJ3 EPQpnTXmN1EtzR8lNhLk PGEjZBEnX5ZzlYJkHKlq C248EEymEfV5GAZgwdPt O1BaUWLinAxdRmM4 b3H8Fj8Kb4ObcrkoF3Gk sHNzUkVyJwkyANj4W1Ga PjwvdHI+GY64WBOaQW27 SIa8WOT0iKptXAwu JNUuA8DxpJ5dJtVkIUOs ZGRkOyc+PHRhYmxlIHdp ZHRoPScxMDAlJyBzdHls NR2zZz5bNUZfRVRh kYlzhAPsYsFen7neYJVg LEvgEJ0rmEvlW1UzmXW7 LADxx2d5Lw48V07gP9Qs dXA+FFZcvJM1aYT2 pV9xLnPtUrO0EAxzS323 GyEtnWOlIpurk5ldy5oo hQr7ZxA1GFDbhlYlwHlv HSL4w1RbIh49L42b IHdpZHRoPSIxNSUiIHZh pCufok8cyU7gFm9+PGNv yPJ6pVR9zN0zCtAuBvG4 OJxtI426NhZacTDx Lxkwd0fxl9ovhVz3KcVu GJJzfbLowAobYWX2g6Uz Pi45J6NlpOnws6SwYhe2 fb35uBQvf7S4pAI4 C3FrKPPbknhjvCOreXwu CR4jUIIouvyeFGWisM3t WMWkW1o6UrDqStW2GNbz L9ZfxjD8YDVsbZTv ULAfxLXNjZ2eppxxj6ea vbmtMnXvTXJySSx5ZOy3 BOLciFpyKdOyHVX6HsP6 OXI1uCWeoR2hoRvl ffsafY3uFov+EHF1gURn yVWPJR1pOclmzIR+PHRk GDC0hUrkOGafLOWddR0i OCZdN6n7UxUrJwN1 HLjoA3IyhxS4VQBzmYMx CLBhxWGAxK9ftftnf4ja wwlkOtIlHPSuAXf5FJw2 LWFsaWduOiBsZWZ0 LyA6NFT0lHVfyE5oyGid nrcssG8gMyc+QmlydGgg LLL6XHv5U4UlYyh4WPPr eNaiVZ6boXIeNGhj Sl6rgHjrpXpyDH2jZROy tqdng707EkJoi1yrVOLo nXCfLEzfWHR4Z67ru8S6 NWGkWMLyEBW5rEU3 fF5csBcthzfbpDQtxIxr zgVidJebKPfvDXtyS979 CJCxaBfjCuUuPDl8C2Dm Yim8XNMhjIbvWP9e wHNgHFejFv4osLvoiGqz TH3kBPIqawnai573YiCi h4fsPLPasHAaRDndEBB3 N59ts8F3ZHGmIEZl ADE8tVC0uH1dsNjqqdtq bGVmdDsgdmVydGljYWwt MZibF944EKZnzDddMsPm dKh2Y0YcLmu5YHMq wUxpKA0buPXrMTkuBt3i rShcoPsyIU2tBKJjgmsb w245PvFlm7xfWWMkaYSz MTprSUR9J52km2I8 EDDiPFUdAAD2vGI5cV6y bGlnbjogbGVmdDsgdmVy kOjoGTbiCZklO309GJMx cDsnPlBhdGllbnQg DSzmMIk6G4FgRazeiNN+ XQ65HABdXN72iECpzACd m3tyjNd2SzXpOXKdEEK7 bWzkBOsdw2CaHEOc Y41tdUVib8A6DXLlqInm uPRbJsEydYO6eP2aBDdf uflie8vvnidbUfqla2ce rn14oM53A28lHOco ZHRoPSIzMCUiIHZhbGln am9txT4aNx2+PGNvbCB3 hEN0nA4xUEUxHcV5KYls I303FuUoiQReJqvy a9zog3dscNp8SwI2DSCz oxYwuEpwNJB9w4RwNo83 U87tQKqxAWIgNVScIFHh YKFhxBhltj2uyE1u Ii8+NHPfuJC5yPU2eS9h XtRkAaR5WXbgI020TkRq xZSoQbpsK17wB2FouKR+ ILRjGmk6BOQveJsr CM3ryVAjOJliFx7lICC0 IgCvEcSlTLkzZ3BxLKZs vjnfavverRY1AXFhPEMr cE54Bs7klRwnZZKc hOZGwZ3tvkvyc2rbeldy QsVuAMQzJZk8ULz4KOKk jGblPpRhFGM5TnY3YEO7 pUYhmL1wsTifcyjs iQ7zQ7YzMDNdxlfjKb21 qM1jKtGkVtH0QOruHzz+ Go3XVHDIA3hAHYAWHN7A QVMgRDwvdGQ+PHRk LYB9gIvkUCceKZWyqQ8w WKOtV0g7BoUjRfP7HJut H8JwJGDnlqqhFe29jL7c OpTrKsK2EXrkE4Yp ouK4ATNoeTKdPDalSFN0 D88wo1G6IEXpKBMoPXR5 fUE1yQ8soKaoggcvqBXw dDsgdmVydGljYWwt EOupV909AGDfhRfaXuCp GfK6DpR0XAD0O8DnDvb6 XZBxzRdqOU9ftNIvFZll Pa6wyMwueAwcVB8p HJKdoaklPOOqhN5aEPXw hNXafAovIM9aHMUauzbb a160WnKlQWA3ZYIkjCBe L6NufF6sDwFrWMBu WQLaY3StvLJjMIehU203 YVvaDaH5RFQjcqEoS4Yl BTMypWqgAdX9o2A9Vc2n NyBZZWFyczwvdGQ+ VEViVXO1uHvbHWamJKUm vE6eOEVyL1l2XiJsVrE2 ENycL9FhRNPrmhsxQb07 qP9xOcBtZrC6DVta D7VhspR3GGKvnAFdESrq YOS7B78bq3W6DHZjDORt HPK3kGF9sD0wfQvfwwln bGVmdDsgdmVydGlj FGszSZnkI614YZNbtZew Rg7uqTL5R9CgMsa9VYGn kUepQI5sfQRjRBddJw1b kSidcOcjPA9tWDUb cntcELMgfV7rTWFbdJVq bBzuGF6xPKXlpmeka544 RwRwLFR2XHNunOAgE6Da pV2dSyEiLSMwUDRk R6IrsSKnXTlhN436BPor ZyU8KDMvioDhQ4EpEUDc oWslGuK2x9R7Xm5LwXVg RSNeUW76ZA65NK47 J7MoTbwxgIKpxQE+PHRh YmxlIHdpZHRoPScxMDAl YnOibBzxGV8xJc3zZKFn LWNvbGxhcHNlOiBj r3ttLNYlNWndIS4taGch X4AamEF6DYBnd0g8Mz24 G44sG5MvhDU+PGNvbCB3 eWB0mH5sXmNiDuI6 XKlwG827LdApvDJhPuip u7jjo7xgaVo6QuBzPFEp mhYuaReoIXH7t4ViMn96 X87vCBaeXXKyRDXc KIEsZYTidIutfi5lgR0g Ii8+WAFujJK5lWV6nR6u JjGiFjL1BNntT527LpZo rBIzUbclC35gB3Rf dXA+DAOoErq9PAVitSof BK3seAAaFYeqPx7oZOD1 HgMiGmSvIJgcP9YcTBIb ucgiqonojJZ2QOSd PZFdhG96Nh5zmWdjYb3w JLMjCHI9EFBlzUWfS7Rw kY7iUoVvHRJsSVCtI7Cq sPHzKXjqS562PJnz GtY4GHHlewIdX0UqSUQm iXdjAhB9u5V5Dq5WpWcp tWMgUN8kHtFdFXn9W6Ri Qbr9NCEgoAonSU1t vKLySRmqLr9meMowtEjx WQ2zSECbrvbbb014BcGh f9ydGWFktQUvLQarHAF7 V10jz5M5CBVwAXSx CDJ1nNK5dM7hgFvbobpm bGVmdDsgdmVydGljYWwt TLuuV473FMHxlQsgSzHL Pae6I5WvFhz3RFJh oGyiLR6pnYWeGYrlHq0i dCacbSulEX1gVCJkqtbv w097IpHxr5ldRMLaxSBn YRjrFAZ5E94ig1O3 YCKyQQMeCKZ2rAH9wF1y bGlnbjogbGVmdDsgdmVy gIxyLGtkYAczX722IVEz fNpeVy3HGlk6K5Nc Okd2EEMnjEbtTI3xlYQi QDtbPf9lyJveaPswPS2n QOCeftceh995DnWfz7lx IDEwcHQgVGltZXM7 Y02no0G7OZHjTAHaOCQ4 pAM1cM5lhAgtysmhgBOn dDsgdmVydGljYWwtYWxp D641NLIwhZhsOdUv eWVyOjwvdGQ+OU78on56 K4CqAfoiDif6YHTeFXV7 wJM2uC7cUAEfJHvsy6Q3 sFA9D0QsqaHzvi2y q8zuMRFk (more content not included)... Normal [facility] Physician Referralon 023 Physician Referral [id number] #1.00CD:127 Normal [facility] Ambulatory Visit Summaryon 0 10-20-2022 [...] Appointments Sunday 9:30 AM EDT With: Where: [facility] Surgical Services Sunday 10:20 AM EDT With: Trupti Marques CNP Where: [facility] Invalid Interpretation Code Abdominal pain [facility] Auto Diffon 10-20-2022 Basophils/100 WBC (Bld) 0.1 % Normal 0.0-2.0 [facility] Comment on above: Order Comment: Order Added by Discern Expert. Performed By: #### 2 518011, 3713365, 2876211, 29502191 ####[facility] [address] [place] [address] Basophils/Leukocytes Auto (Bld) [Pure # fraction] 0.0 E9/L Normal 0.0-0.2 [facility] Comment on above: Order Comment: Order Added by Discern Expert. Performed By: #### 2 506113, 9619798, 4396075, 68414897 ####[address] [address] Eosinophils/100 WBC (Bld) 0.1 % Normal 0.0-8.0 [facility] Comment on above: Order Comment: Order Added by Lopez Expert. Performed By: #### 2 942774, 5544972, 6315608, 91110871 ####[address] [address] Eosinophils/Leukocyt es Auto (Bld) [Pure # fraction] 0.0 E9/L Normal 0.0-0.5 [facility] Comment on above: Order Comment: Order Added by Lopez Expert. Performed By: #### 2 824056, 7153706, 8373494, 72032719 ####[address] [address] Lymphocytes/100 WBC (Bld) 7.2 % Low 14.0-50.0 [facility] Comment on above: Order Comment: Order Added by Lopez Expert. Performed By: #### 2 935920, 5680768, 9542754, 78528956 ####[address] [address] Lymphocytes/Leukocyt es Auto (Bld) [Pure # fraction] 1.3 E9/L Normal 1.0-4.0 [facility] Comment on above: Order Comment: Order Added by Lopez Expert. Performed By: #### 2 192280, 8907518, 5985190, 82737070 ####[address] [address] Monocytes/100 WBC (Bld) 4.6 % Normal 4.0-14.0 [facility] Comment on above: Order Comment: Order Added by Lopez Expert. Performed By: #### 2 089479, 3029057, 1993150, 39604591 ####[address] [address] Monocytes/Leukocytes Auto (Bld) [Pure # fraction] 0.9 E9/L Normal 0.2-1.0 [facility] Comment on above: Order Comment: Order Added by Discern Expert. Performed By: #### 2 252171, 8175494, 2881179, 48009348 ####[facility] [address] [place] [address] Neutrophils/100 WBC (Bld) 88.0 % High 36.0-75.0 [facility] Comment on above: Order Comment: Order Added by Discern Expert. Performed By: #### 2 346246, 1662260, 9069014, 01831126 ####[address] [place] [address] Neutrophils/Leukocyt es Auto (Bld) [Pure # fraction] 16.5 E9/L High 2.0-7.5 [facility] Comment on above: Order Comment: Order Added by Discern Expert. Performed By: #### 2 966389, 0099782, 6147690, 34010722 ####[address] [address] CBC w/ Auto Diffon 3 Erythrocyte distribution width (RBC) [Ratio] 13.1 % Normal 10.9-14.2 [facility] Comment on above: Performed By: #### 2 560075, 7064761, 4399047, 52684838 ####[address] [place] [address] Hematocrit (Bld) [Volume fraction] 43.9 % Normal 37.7-49.0 [facility] Comment on above: Performed By: #### 2 822208, 4890221, 4468531, 56685321 ####[address] [place] [address] Hemoglobin (Bld) [Mass/Vol] 14.9 g/dL Normal 13.5-17.5 [facility] Comment on above: Performed By: #### 2 481328, 1067628, 3427525, 77482725 ####[facility] [address] [place] [address] [place] [address] MCH (RBC) [Entitic mass] 29.1 pg Normal 27.0-34.0 [facility] Comment on above: Performed By: #### 2 654257, 7962504, 3450704, 46866385 ####[facility] [address] [place] [address] MCHC (RBC) [Mass/Vol] 33.9 g/dL Normal 31.4-36.0 [facility] Comment on above: Performed By: #### 2 167382, 6035498, 9728113, 89100133 ####[place] [id number] MCV (RBC) [Entitic vol] 85.7 fL Normal 80.0-100.0 [facility] Comment on above: Performed By: #### 2 777319, 6556319, 4195356, 35799327 ####[place] [id number] Platelet mean volume (Bld) [Entitic vol] 7.3 fL Normal 6.4-10.8 [facility] Comment on above: Performed By: #### 2 572736, 2840322, 0282299, 83755324 ####[address] [address] Platelets (Bld) [#/Vol] 318.0 E9/L Normal 150.0-500.0 [facility] Comment on above: Performed By: #### 2 311915, 9276924, 0688878, 61163519 ####[address] [address] RBC (Bld) [#/Vol] 5.1 E12/L Normal 4.3-5.9 [facility] Comment on above: Performed By: #### 2 349054, 0705810, 3168817, 87881133 ####[address] [address] WBC corrected for nucl RBC Auto (Bld) [#/Vol] 18.7 E9/L High 4.0-11.0 [facility] Comment on above: Performed By: #### 2 811663, 8516924, 6383294, 79764114 ####[facility] [address] [place] [address] CHEMISTRYOrdered By: SYSTEM SYSTEM on 10-20-2022 Albumin [...] 3.3 g/dL Normal 1.4 - 4.0 gm/dL [facility] [place] Glucose [Mass/Vol] 106 mg/dL Normal 55 - 199 mg/dL [facility] Remisol Potassium [Moles/Vol] 3.9 mmol/L Normal 3.5 - 5.3 mmol/L [facility] [place] Protein [Mass/Vol] 7.7 g/dL Normal 6.0 - 7.8 gm/dL [facility] [place] Sodium [Moles/Vol] 136 mmol/L Normal 135 - 145 mmol/L [facility] [place] Urea nitrogen [Mass/Vol] 7 mg/dL Normal 5 - 21 mg/dL [facility] [place]isol Urea nitrogen/Creatinine [Mass ratio] 7 mg/mg Low - [facility] Remisol CMPon 10-20-2022 Albumin [Mass/Vol] 4.4 g/dL Normal 3.3-5.0 [facility] Comment on above: Performed By: #### 2 350267, 9569428, 9268599, 45529208 ####[facility] [address] [place] [address] Albumin/Globulin (S) [Mass conc ratio] 1.3 Normal 1.1-2.2 [facility] Comment on above: Performed By: #### 2 494955, 8638608, 7157547, 44708161 ####[facility] [address] [place] [address] ALP [Catalytic activity/Vol] 99 Int._Unit/L High 21-98 [facility] Comment on above: Performed By: #### 2 089669, 4604839, 4929632, 46658023 ####[facility] [address] [place] [address] ALT No additional P-5'-P [Catalytic activity/Vol] 34 Int._Unit/L Normal 6-46 [facility] Comment on above: Performed By: #### 2 782379, 2199285, 8263393, 55619232 ####[facility] [address] [place] [address] Anion gap [Moles/Vol] 12 mmol/L Normal 6-16 [facility] Comment on above: Performed By: #### 2 454129, 0449027, 3704019, 04386502 ####[facility] [address] [place] [address] AST [Catalytic activity/Vol] 26 Int._Unit/L Normal 5-43 [facility] Comment on above: Performed By: #### 2 064752, 8287265, 7994174, 06809906 ####[facility] [address] [place] [address] Bilirubin [Mass/Vol] 0.5 mg/dL Normal 0.0-1.1 [facility] Comment on above: Performed By: #### 2 576020, 0902640, 5467569, 46257075 ####[facility] [address] [place] [address] Calcium [Mass/Vol] 9.3 mg/dL Normal 8.9-11.1 [facility] Comment on above: Performed By: #### 2 733677, 0359598, 6375131, 40747382 ####[facility] [address] [place] [address] Chloride [Moles/Vol] 102 mmol/L Normal 101-111 [facility] Comment on above: Performed By: #### 2 017093, 4107343, 0341235, 76863025 ####[facility] [address] [place] [address] CO2 [Moles/Vol] 26 mmol/L Normal 21-31 [facility] Comment on above: Performed By: #### 2 880999, 1032854, 0187848, 40984414 ####[facility] [address] [place] [address] Creatinine [Mass/Vol] 1.0 mg/dL Normal 0.5-1.3 [facility] Comment on above: Performed By: #### 2 498420, 6974703, 1971510, 50255502 ####[facility] [address] [place] [address] Globulin (S) [Mass/Vol] 3.3 g/dL Normal 1.4-4.0 [facility] Comment on above: Performed By: #### 2 822266, 4567149, 9003633, 58372102 ####[facility] [address] [place] [address] Glucose [Mass/Vol] 106 mg/dL Normal 55-199 [facility] Comment on above: Result Comment: If t his glucose result represents a fasting glucose, interpretation should refer to the following reference range: 55-99 mg/dL Performed By: #### 2 894200, 6787681, 9991190, 23446231 ####[facility] [address] [place] [address] Potassium [Moles/Vol] 3.9 mmol/L Normal 3.5-5.3 [facility] Comment on above: Performed By: #### 2 388073, 4587368, 4554086, 72852195 ####[facility] [address] [place] [address] Protein [Mass/Vol] 7.7 g/dL Normal 6.0-7.8 [facility] Comment on above: Performed By: #### 2 380132, 0317932, 5368244, 12060010 ####[facility] [address] [place] [address] Sodium [Moles/Vol] 136 mmol/L Normal 135-145 [facility] Comment on above: Performed By: #### 2 740680, 7264415, 2895323, 94772098 ####[facility] [address] [place] [address] Urea nitrogen [Mass/Vol] 7 mg/dL Normal 5-21 [facility] Comment on above: Performed By: #### 2 720943, 5287133, 9941342, 95013584 ####[facility] [address] [place] [address] Urea nitrogen/Creatinine [Mass ratio] 7 No Units Low 10-20 [facility] Comment on above: Performed By: #### 2 058693, 3415345, 5019898, 68586166 ####[facility] [address] [place] [address] Consent for Treatmenton Consent for Treatment [id number] #1.00CD:127 Normal [facility] Gastroenterology Office/Clin ic Noteon 10-20-2022 [...] at 2 (more content not included)... Normal [facility] Comment on above: Result Comment: [...] vinegar, hot sauces, and barbecue sauce. ? [place] fruit juices and citrus fruits, such as oranges, mynor, and limes. ? Tomato-based foods, such as red sauce, chili, salsa, and pizza with red sauce. ? Fried and fatty foods, such as donuts, faroese fries, potato chips, and high-fat dressings. ? [...] General instruct (more content not included)... Normal [facility] eGFRon 10-20-2022 GFR/1.73 sq M.predicted among blacks MDRD (S/P/Bld) [Vol rate/Area] mL/min/{1.73_m2} Normal >=59 [facility] Comment on above: Order Comment: Order added by Discern Expert. Result Comment: eGFR is race adjusted. AA=. Performed By: #### 2 567693, 8460271, 0784669, 41776331 ####[facility] [address] [place] [address] GFR/1.73 sq M.predicted among non-blacks MDRD (S/P/Bld) [Vol rate/Area] mL/min/{1.73_m2} Normal >=59 [facility] Comment on above: Order Comment: Order added by Discern Expert. 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 Kidney failure is indicated at less than 15 mL/min/1.73m2. Performed By: #### 2 345333, 8659895, 1934108, 59632814 ####[facility] [address] [place] [address] Auth for Release of Medical Recordson 09-27-2022 Auth for Release of Medical Records [id number] #1.00CD:127 Normal [facility] Coding Summary.on 09-26-2022 Coding Summary. CD:[id number]:[id number] Gh0bWw+PGhlYWQ+PE1FV FJgJ98ekDNosX4lH7VOE ElOSywgQVBQTElOSyIgb mUbJL4qtHGbDKDa IC8+BB7xUAQgNtmfuEIu z6N2oCY2F66awr9cGJoh xCJ2OHZfSxXlahzuo7gd kYe3VLqrZkxtZqOd IVHvjE86YIV6qD82Sw02 qXKrwZRpm0hveRh8RgFu ZAQaHMU3rIdtITasb0Xw ZNTbE37faGXca1J8 IGNvbGxhcHNlOyBlbXB0 pT2pDRwyvroev2gcmoja Cov4vc07yJHqj2L3kZP1 S3SfkrO5IYNteLEf ZaobvWJVmU1yjsyzc5pf arxyGcFlTSNqPOy4MYy1 MQNyfYbyHeQxCE27SYB2 YPXcnbAbY3ZqHVXr mZaoZbL5m9H2Fa1DP1KF QrinU0VTWMIWCOojcFB+ MW99xz36J3TxMhvmEld1 PVCgJGQ3tHB5oN1z XYHeUQoaw3S5eFR8A1Fm biXeri4tv9mmKGVyYAuq Z90hcUNbs3Y9XIHseIV3 TWDimVlzJqNarE93 Oyc+LMXmeEbmr9TrEofk m3jvl0mybPj1IyikYGQi umFnkIxrXDY1t2WiRy1u SMLhkVS7oZR5gB7n UwZgEaE0SFxbP447HvEj gMZhCzheB26iW7TkrKE+ KQPoFtx5XDCqvMpgDK3b X0IwPBSahazsdODs lRckBX1bITEufskzVLWv kR6sKMHcF4l1NmKyGvW7 LKnoM7FvAFCemjvnOu55 pR2pLnSdVaU1ZRog M9ZxbwD8WBKbxPMpPPgb XDO6H55ab9D9PHQpOBJw ZFT3bQA0qI8qsSqtnpey bGVmdDsgdmVydGlj HLssZZjdH970QYCthAcf PkNvZGluZyBEYXRlOiAg MDMvMTQvMjAyMzwvdGQ+ OEOxZUA9jSftONQu mLStROveWa7bbNbjoKpx RW1oNDXlbkptGTSltB2c GDCldMQxqSvjLA6eSMSb aqpor325RoXsCFZ6 LYGrwXTiV2GvzK3cFzQj CUZuPLDmV6ImrYMnJQkw D440SGscWsV4XWBylfWd H2YaWRVaiKebVyM3 w0T7Xi9Rc9AlqyqpU7Qs bSYsPjRrBvobKWg9L8Kh PjwvdHI+JT71XPPhCZ19 BXg4DJN0fOynJRvf PTJlV8EdiL8eFbHrHSGh ZGRkOyc+PHRhYmxlIHdp ZHRoPScxMDAlJyBzdHls UT4jSq8jNVNwJWWb eUfjnPKsZcXvp9xpGQYi ISpzGV9ocXakC2AbbFF2 KTVte3z4Ix73P35bH0Nm dXA+QLTjvFO3jVK6 wE1cInQiJdO1TYsbR006 QsDccMTnHzrlj4lmn8ml hWy0EsU6TDHctuLddAfb QAG5x3UqGa48Z56k IHdpZHRoPSIxNSUiIHZh rMkzav9yyG0hOo5+PGNv gGD5tQB9wI6dRxXhGuX5 TEceF623DwFlgRSd Irahz7soy3sfmDi2KmWi MYQnuiRswVxrTMM0a5Qv Lq00N8TeiNozi1OlQcw9 fm95cERds4F6iWE2 V4ShFVTjnfivlDQsbVgm RC5yXSVukkpvSZVixT3x QTWeX9u7JxMiKnK0CJei A1HyntJ1XBPdkEVm QTDxyQAVnE0ertaog8pj ywpsExVjHECdJHd2QQg4 BSTcdHcuLzEvWUH8TtI5 FEQ4nTRycH8uaLgk ajxheU8iKmt+OZX8pSAx oAFELX5wSuedoSC+PHRk AER7fPygNVkdUWDcnR3l JLVsB5b3LqCzSvR6 FIdeB5OuhlN8EOMkkAEz PBKjpTMTrH5qplpad3et yujzFkJuLSVaRZf1GPp9 LWFsaWduOiBsZWZ0 SzC6MBM3tLFolT5pbQlj sxtfuQ6aTvj+QmlydGgg MDO0JKp4H5TuVor5MVEn oEnpPK7crQCdHXdm Te1nnYnrhFwbTC3lXRUs rnfcr115SnEtl0oxCDGu sCYhODhxJMI5H49oe3R2 ACTdHYAoHRD9cYL3 iU4fmHvxawslgSDbrNed ccCkbKshFBzuYCktH762 KPNcgEzeXoDfWBw1C2Dg Ksk2GFUtcQosUB1k hWDrKOnlZd7srCdgvMzt PS0fFUMplsqru674ZiBs l7haZLPauKFkZOvsLAS2 T16rz3I2YNUbMPNy WNH4aDI1hD8bqBwdpdav bGVmdDsgdmVydGljYWwt UVzjW896HPIbvUtkCiHq aPw4R9RxVfg9MJBq rVxlKN9lgQWrFPxjHr6t kOxlfSaxYA6mVXDykqtd f010MyGio2mxTLOcuQJq KQjmEXE6T17lx2O1 AVRtTFYhORC5hYE1mA3j bGlnbjogbGVmdDsgdmVy nVfgMCzsMWmiE957UVHb cDsnPlBhdGllbnQg FQvpCSr0S3PfLeyfrMA+ RE28FSUxDB75eBLywLSs c3sjoJr5ApBhXBNoXVI0 iVcbSIqbz0FdBVDh P61eaABke3B7UBIhgJdj uXGuCcXtvKM3hA5mBWlj rmxeh3knalgvRxonr6dx on97tQ93N76vVNuh ZHRoPSIzMCUiIHZhbGln mm6zjE0kQy3+PGNvbCB3 nLI1nK9fWHMdSuB9MZfg T308TdNmuJUcJssz s8uvh1blqLh8EyL1EWJp zxMcvHbfTGT1j0SyAu23 F28uFUahVXFqRKVvZHYt YIOfiEpxfp3mhK7n Ii8+EQLjnWI8zFW9dU2y BjQzElG5ZCeeA023TnMp vADpNubxF78uH0QhiXC+ RYNaKtm4KTTeaYsj RN7kdPEoRXxqJp0lUYU7 DpKdBdSxWOrgH7QaEMGp vmntiusocLZ0ZBOvGFGh fW34Oh9haYxfVVHy oEPQpV7xhzpou0abogpt LhMxWSBsCRg9OEs1LKXf uFymTnWdGXX8LaV6WRX4 pLLwmM6adAmanigr wT5xL2CvUZIfdrqrSv97 xV1mRlQqWrI9HSjxVzb+ Rq7WPOSIE1kMXKNYHB5I QVMgRDwvdGQ+PHRk FPS2rGneBLktATKprT2o WFOyZ1f6IyQwTgW8TOpr R1OoUMEcwbieMz47oK6z TsAhCoD7MQkmU1Ks bhO8MRNsbWQwJEzfNQS8 U68ze8M6PWTlRSAtQAJ5 cML0nT4hoSpjplvmqVCl dDsgdmVydGljYWwt JRqzX227FBQhwAtdRkPf FoV1CkP6WUK5Q7LwIhn1 KENagUlwWO9knULpPWof Fp1voEikgChmUQ2x SYHnqvbbOYErpS2iYULb hCDdlSrjTT9mXOVukyqt l370TgVmSJW5CGXulKFm N6AlvE7mXmHvXYUv XLDaW2RcvPSqURixP351 AQylYlW1LTYxnlVmP4Aa VRDyqZmdAeQ6s0S1Nh9h NiBZZWFyczwvdGQ+ XDMnLMB3lBlyFDmeKZAd aW4oEJGhA2q2OeHuImL1 TQrxS1YvDJVsoljbJb37 rC1eQhMcFmW2UYka G2OvgnE7FLEisKWgMUgk LCY6G04fh9J5CDPuAFAy XEY0cSQ0zD6reLjdimzm bGVmdDsgdmVydGlj XWzzQTmnQ869SIFfaXri Yc9dnKY1W1CjHcu5CYIs vXsdGG8fiHBwWQxjPj0g gKgmxHzcCH4cTTEa dixpGDLbeS7zDRRivMCm eCswUM2jHIBqwqfyx084 HtMaTUD1FHHacCBpX5Xc zX2uMcWzCTMqAVKs M4EqoONpSSrpG625BJlu QgE8QGCxeeUbF1CpIYHq rPobEhV5k8N8Kb0GfJAz TSGlKU80DF47ZI06 C5BpHjgkmAZgfCK+PHRh YmxlIHdpZHRoPScxMDAl GuLmpMxzHF6rVk5tPEZo LWNvbGxhcHNlOiBj r0orWODvTVujWG5tiSez W8UvuAY9SXWoq6m0Nt15 V65sB9CmeQX+PGNvbCB3 oMT0nY0fAcFhCeP6 OGxbG773BnTddTFxMqlz b6zff5bahKk2WdJfOHOd pcPgyPwpRKK5l9YpHc77 M19kPEpqVGCbBUHe LPWsEHYqsRvyyx7qlR7n Ii8+LLQasIQ9yNQ8eP1k MwKkDlD5SVylK818CtLy zUVqZijyD98yF7Ro dXA+TOQhExz7JNMvjXrr NG3kfWNcXLsjZf8pPKA8 NlHwLoNmEYzxT0BnDVNg asdrhyeeoUT9RDPn EYCpbP22Qv7afUcsNd7g RGJpDFI9LPKhaXHjL4Op lZ1ySeWuIIWnBQNkU6Nx kKObBGsbQ983EMgo RvV7YEKtyyJhP9AoRLGv vQroJaO2a0G7Tx3TzCuw oLFnMH3tIdWuFRo9L3Hn Hca2ZYFqyUccZV1r jODeMMyfPy3ueYyuoFeo YH1jKNZpenqkm223MuZk o0kwUOIgeDRoPHxkCIS9 W82nv4I6XMIkWVEm WHQ4hVY5aK2unKmvriey bGVmdDsgdmVydGljYWwt QBygI027MISzpEfnNnZD Rwe8A8YySud6GEFk jDvvXP7tuZKfNFczRj8c zNbbwObvYM1aEJPuprjc g378DxRng3zlKUDmhCEc FMdpAUW4Q53nk6T1 JPRfNNCqKBD0fVF9dD7b bGlnbjogbGVmdDsgdmVy rOziYUrsDTffY781ASAr sBtfFk9UCpf5J3Yl Tti3HXDhzLxaVT7vyYBi HTvkEi0miRbzjSmgXU2z ISWmmfttn731WlAnn9mg IDEwcHQgVGltZXM7 Q94hl6Y2ZVLoRSRpCCO4 xOF8kD1itHtgohlzhIPg dDsgdmVydGljYWwtYWxp J757WVPvsQccKmXn eWVyOjwvdGQ+UX35pb81 D7WjNchyGdz0FCOvKOF7 sXD1sI0qPLZhPBjtd2S3 kIE7I9MghhTdtf7q b2xs (more content not included)... Normal [facility] Postoperative Documentson Postoperative Documents [id number] #1.00CD:127 Normal [facility] Physician Orderon 09-15-2022 Physician Order [id number] #1.00CD:127 Normal [facility] Consent for Treatmenton Consent for Treatment [id number] #1.00CD:127 Normal [facility] Coding Summary.on 09-06-2022 Coding Summary. CD:[id number]:[id number] Gh0bWw+PGhlYWQ+PE1FV ZMfN78bpUWnmO5FZ7bKO O7SKOQTSTQDKX5DZR9bl AO1JCwrZ5WpkxWa JqqsuAAlQT28OGq6QPJ7 kJpbOJcviB3avAAcJ5a1 LxLsRJ05wQ97IWfmEAUx UeK9JxIteexouWZo R1ygKxJgaVGmKuv+PHRh YmxlIHdpZHRoPScxMDAl SbOfvZmrAP4nVu2tPYKc LWNvbGxhcHNlOiBj t5hbBHRkGJfyFM0tbNme U1ZiuIJ0JJRee1b0Wj16 dHI+NXZlQTR8oTcwXZmw d202VzFsb3djIDE4 tBJaVKuxYMB0D13vx6G8 KPKnTBEnQPZ4jVA6qK7o yUakjjvqP3OgkUIwOxD2 QBQ3tOKppZ1tqSta zkfawA8aUgk+S13XPM8K NKRBIA1WNbd4I9NgOhdz dHI+DH31ECWsNQ69kQWo yXYae2bqwYe1DnKz FFJhGKK0fUadPKjkj9Ks XYTgO62ygHVst9R0PVYh lJpclLMlGhJsrVG0cU2y NAcufadpf0uuwwlz Ehrix8rawx16jS80E59i IHwjIQGwPSL0HPBpXXSy jEkxsr1ibO8lFb8+IDxj p1rnp5qocAg9XaMd GGEcszRxvMfmLFQ1u4Gk Ot70J6DuqMbwe6TxMfy3 pr10eFBxo9R9xSO7PShh SYEaeM2sRXwzSlG5 BJNwSgQhqC39pGVjJXfn Du7kbFxoiItgSB9fVNWk xfwjMRBcvR0kUQOjyOVw xTozVH6jKPWskyen b987LtWcVNR8XIZkvABw Y8WigK1yPqDnZGKaSBOe S0BxbVQmCTseI917OQfx UiC8ZYSuozXbS0Oa WASviSgnKeS9v2I8Ge4M i9YapqmmDEA7INvmEYMa ZlZbKgNkNrL4Z6IzAgb0 CIQzuLmzCQ0hS6Wx FPBcwnknkbowlGI0PZCk XMPnrS59cAEoAExpLl2o t4A1l232XUIcZGMlsB55 Hx5yiPtnIDBktHUH xR0gqpqet8rjypscHwWr CBXvBXl7UCx9RVLriGbq KjViJIM9YuT3CQQ0yITu yO2zmXexiziwcQ1l Oyc+S96ntR3qLMT8QNX0 badyXEIpfbNsYN52XL26 H4IhWfvdrLFofML+PGRp zxPxzWrxMQ3qEpLu h9imn5MzYFpuW7DgVXDn VYcvQsq8UXKhJET6qWS3 sE4qIRCaXRtqq7E5zUG6 W1UzhmBrzu5jn9hb MVDlETyoX90cbBFlx3A2 HFTpyFN8AMGmeDdzTyQz pQ87Tcs+RBNhyCnvc9Tr Qwcyp2uwj3xliMq7 IjMwJSIgdmFsaWduPSJ0 i1LrAp32F34qFExlBHGt JJZbGYLdFWSyxMcbuw5k rB2eAj8+PGNvbCB3 fLU5hO4dCLLhOnG4UYzk I211BuHwbIGpGstsj0pw q3cmdXb8AsBdFITxmkFe sSogXZI6j7IsDb35 J56kVDwlJXHhNHIhOUJy YLAdsOdtma8fgQ6cOl9+ WV1rh0zbiq22mZ36tNJ+ HHGaQFQ2vSejLOel DFUbbV3rLTotArP9DLCp TiWtjK77aXUhRIavRi6d aTvvsUwxSZ7uYWXnyfly w967GwMkz6nzZPUc aAQeYSlcVHQ3K66id4Z9 FOPkBSBmTSX5fUQ5sN7q bGlnbjogbGVmdDsgdmVy uGueIQdqXBveA927 IHRvcDsnPlBhdGllbnQg RtGqXCs7U8MnMoe7MXQw oRjeQW0sgAIbZMpwZj6s rLzfpCpqNI8fCPLy uvaai736KrHlf5njWNJw oYBhBPtyDAM5Z04zo3R9 KKKyETYeCAB1yIU6vV0f bGlnbjogbGVmdDsg ucBjqYdpCGgoMHhhK455 IHRvcDsnPkJpcnRoIERh cGK4MA00JK59bQCtl3C5 lZT2S3XnYMBsqqcl djstgRW8NKYfUTOakB44 Sc9ihLnjVy4uLMZqXCP9 DNKplCAyY0StpO9mClSi ZIZjUYEjI9DufERw ZGzxA729JXrlZtJ0ZAKk npRgB4QtGYHdyWttHuS9 m8V1Hz1UN8Q8GL48PV77 lNNoo7W8yJS2C9Em BCWwjxdgblfntDJ6OGMi VXKaqU59La5qxJfgZx3k NKTjYJD9SHRrmOMmD8Gl bF9zGtSlWYGcYIUf Q3MmbPDuUEybR007VLwd SwP9IQOlvbCdE1LrNVSd dPrfJrE7l7X6Oo9BJNl9 IS79SE36cIXzh1N2 kVY7N0QpTLWzdpjppxpb dQM1DKCbWBGzuZ39Gv2j eVbkJy6sYIUuUNT9ZLJw nXTyU7UxvR0aYkHg YNRkLBItC5YajUOfABem D228NFnhWbW9BCDtxyHi X1HnYCAibLkxOmY8z9L2 Mu9NWFBgRQ92DLT4 sTD2TW72GN50W9PxExwv dGFibGU+PHRhYmxlIHdp ZHRoPScxMDAlJyBzdHls SD8vOo5vIBSfAKEv aZraaXRrYxSaa5guXWXc LGiaRM8hlUkyM1AwfUA8 HDBom2a9Fr17T84aV3Zy dXA+USKcwQK7bLB1 nF1cEcBxJdH9ZPsqH353 MaZghYBzXtmrg0siz5nu gEz2QzR4HEKbnxDdeErm BXA3k5EfMr43Y57v IHdpZHRoPSIxNSUiIHZh xOhsgg1khA1nPh4+PGNv uCB5qIY3cY1yUySuEmO9 ANyhF999FfUmiEKt Ypnxc0kbk7fqwEo2UhLq UXWbbvOvvIvcCHK3k5Eg Ue91I6RwdCcoe5GdGox5 dh55jFRdd5A0wPR6 K7MzBBJsgyjkaWViaAws FY3kMDRkglheDLDnkS2e AVSjU7d6NqHjOrT1CSrd E2DxxbN0STSfuHKl VGzmGUO0M26cu0U8FBYc OTYgGCZ2jSR1iL8kyUxl bjogbGVmdDsgdmVydGlj ZLqiXJltH438CZGm rJwaXHZqhV3cXZXwyWHm vAluJF5hFPDhcfbzCnPM QVRSSUdIVCwgVEhPTUFT NXG2J7KgUel5WIBi hCmrON6ebJOdSFoeVr5x cEuioTtfTR8kBIIqlhur YYPgjG7fKYUzgXDxlHcp OJ2mTSKtlpjlm290 ByIkTXY4YIFhqHEcR2Xr qU7vBsEhHPMdLOLcR1Qm kWXxVWmyU149RLvhEcX7 ZXFedjPdZ4IuRYTd hPkvAyS1i3Y5Az9tHs1l CN1aAYx3ZL41OX41hYVs h2Z8rBG2C7QhFOAtutaq tfsutLY9LXEhTGJv sT59cSSqUGrdSs4zv1P2 h172QLLqTDFtbS93Pm2d yGphTYSynBJFbD0mtgdv c1wzxklcIdOsBSQo JUu4BSl7ERXodWtiZaHz JFB4VoI9OFL5qETtbJ9l zGndvzgxjJ9dYoy+MjYg HXNqdeQ7A4StGci2 OHEfbMrjFS3dbNUeINgl Df5foKfneCliIF4vYXPp xmcwRZQfhV5lKPJmaDIc nNzvWR9nEEEyifkl r354MiCmSEN1YRPvaPTp J5ScgE9jSpUyKZGqHBEp A5RgdEXpMCrrN458PHxt GbP7XODrjhMdA8Qz VKIeyShsIzX3a8G2Dw5S VMxuJQ14TM23sBOgy2J5 jSY8M7NoTATppdypkxgg dWS8ZIScMZVdqH56 xTLbINexNw4ec2V8q941 AUImNFVvaN30Kw8znVbx TOYgtEEPvI9mextbx5me cjogIzAwMDAwMDt0 WYg1ZNDfxTvqEgCePSM3 GzJ0PXR6aWGkgZ9tmOqi slukeZ8kWgu+K3E5nSY9 aWVudDwvdGQ+PC90 dp66W5EuCgqmMhv3NLMy UXA6lNF9fH5nRYJtHVfp z6T6tCN9Q1VviyHkrr2d u0uaYSSdUEhxC00t bKTvu0O4MFCsfAB3LNHh aFjbJfBevF77Nop+PGNv wFeji8JpNaguk4tew8ct mNf6QyQaMPFmgsZj iJmyENT9f0QeDi18Z57c IHdpZHRoPSIzMCUiIHZh tUpeyf6bkZ6eXn7+PGNv lAC5aJR0gA0yDcHl EnF0FWbuK639RcFcaIEy Hgpaq4ppn9ilqKa1MqQs VIApnkGxhOmxZVI9l4Ip Fr11M1FddHgfr4Gm Ilg1ib20aSKdp0V0mRF5 C6SmJNZskpacfAYhzKzd CO9nJNDzqnxfCBAwrT5x CZSdO1y0KrQnGnG3 PHcrF1MlruS5RBZdaPYw GFDnpASMfK0vmshkh3ub zafhZwVlUVLxZIm7CPm8 LWFsaWduOiBsZWZ0 CxM7ZIC8fZFgcS5muFks bnnksX2qUvi+LLa8z9rw tZWjGJ0pnCY7EX57NH45 iWAsp1N0mAZ4T7Et QBWsudbasgkimIB7JEYj GDTooL45Tx2ieSzeAx1g NIQbQPD9JCVphUUnN7Pm yQ7zMtWuGVEtJBBs L8RrzTFhLDmuO272NPbw OwM1TLOftoKjX0JuUXXd oPmhFqZ3b9I6Bo5AZW94 JH87HW46eORcl5T6 nLQ9K1UgOPUnpcucvtbj lIB1VKRfWCMaiW56Lf6w aLzdVh9gMPYqQJM0VZTj hMEsT8RspE8uJdJd ZXOpESMrK9BhlUKdZXpc V908UPpcZvN5PQVtwjSm M2CiKSGvuWfmDxF2q1V2 Vn7ZAf39FR63BL78 kTUfv4V3yDG3M4JlBHOm rqcgsirjmCS8IQWgRMOe eV67Lp8fsCqjWf1jUGQn YIK7SKOraRMsU6Vh xC2tHvYzUHJbQFQeR0Ol rLSpYOjxM881TTqdFmQ2 JSJakhIoD1LlESNaiSww BxR5s9J3Kk7DPGlu bjq3G7WvCxndvSS+PC90 SAUmFW19nCQyvRRwb3tn xTy8TcWbDBJlBHT6sUez TLrxu0AfLFMeS75q bGFw (more content not included)... [facility] Consent for Treatmenton 08-17 Consent for Treatment [id number] #1.00CD:127 [facility] Consultation Noteon 08-29-19 Consultation Note [id number] #1.00CD:127 [facility] Physician Orderon 08-28-2022 Physician Order [id number] #1.00CD:127 [facility] Coding Summary.on 08-25-2022 Coding Summary. CD:[id number]:[id number] Gh0bWw+PGhlYWQ+PE1FV GXcK54joIFwrQ5XY3qEG Z9KNPDPYHBQOT8LQK6mr NC1NLqnK5ZpycYx FaqzcNVeZE52ILx4LDR8 ePvcPQbujQ5xgHSpF2d1 MaEaNH08yB91SJdtZQZe LmU1UaWjldoxfKNt C8tdLnYmxSPvDot+PHRh YmxlIHdpZHRoPScxMDAl DwJojXcjFJ5yHy1oPNJs LWNvbGxhcHNlOiBj v5hqTIReITodJP1smIps I8TviOL3XZJqp9l1Zx85 dHI+EQRcEZC8lNuoUEvc y417KqTsa3ftBCZ3 sBOaWGhxDRN8I55bd4Z9 QGOtHUGdPHG1pCU0vW1k dCmaiwucD0BzzSQyQwP1 MSV7iGNtwG8wdFkd axueiW6wAki+Y84QHB4E THEOSY2MTxy1D7UnNkzj dHI+RY62RIDyAL05aXYh bHTlb0unrCi9LfRr XXPcRSG2iMbnBYuup4Ix PQHfH18hsBXbe6L0HDJs pXsukHViWyHwlVE9oV9g ZEeckzsyn7kcdvmj Wahxf7gofx84xZ56I16w RLxaBTDsJOH6FKYmFMRc eDqwje5vaV2hKo8+IDxj q1ulm8yhaOq5XxFp TSJmunKlmDkgEHX7c4Zt Qa19H1KjgWhkj5WyHkc2 gi70oGPwh8K6kIU6BGok CQLaeY6hIVpqImE2 GOHeToTaoL05rQGyYHwt Up4tdWyemCzsFQ9sBEOk gxsvRJXphZ8mZUFmoELe gAlkIU0lRJBacdze y105GiFzOED8OZYugQZh Q0McmN9aBaCzOHYyZIDl E4KfvQDwDOgnR921HNzd UdZ5VRMaqaCaG9Sd BCKulOqgHkV8e5V3Fm1X m9QaueoiICO5JKasTCJs BlLvPgNgPxI6D3GuCpw0 UVTmqWufLJ3sY4Ks UAAmprkniixflYG6WHNo GARgmG92jXOgLHdrSi9s j9T8w334STElPSMwhP23 Oy5pnSmcFHYztGKH aL4ndsfwx3uufmmuFiFn ULKdBCs0NPe7DVPsxCbu AkLhRKM7NtS1SZW1cCRh xL6obFrhlypfhX2y Oyc+H38krA9vVQG4ZWY2 jhlrYQNzdqTdCZ60PV88 Y6WxHhdrwLNkrOJ+PGRp gnWitTxoES6eWgFc m5qpk6PbWVlhA2XzCBFb KRscHxb6PCFsROL0qDN1 bZ8tQOXsRXjmy6C6zNK8 Y0EqbrRddo1ol0zj BLNvNGnhI80dtDFoo2R1 MAJgbPL3AFGsbQkkRnEm gW00Iit+AJQpeDdjj7Dr Dkacb0stb1dxtLv7 IjMwJSIgdmFsaWduPSJ0 v7HlHg65C20oGHqsEGRa WKIlNXGySOPjcIrrjw2b pH4yMu0+PGNvbCB3 qCJ0hC1lUFCjKlA9CBgu V360DcPxkCAvSzsim6sr v6sisAe3FuAsAVJjgpZx qBpzSIV3x3OdJk51 F83kOCdbLBEzMINbYOGu UIZdxYbnnw4ebR7mAu1+ GB5hy6hbbj18kD40wMI+ DNOfBEU7jShbRXoh ELNdbE2bFRklRcV4UZXj IpSuzP32wWAdTExqAu5t eWziuAobSZ8uRRZkeskv r010EiLlo3bnXZSn uOJlZVlrOTH6P01ss9J4 RGEmENNsWFY6wFY5hO8m bGlnbjogbGVmdDsgdmVy jKeeDRakJEtjS149 IHRvcDsnPlBhdGllbnQg MsLmPAt0N8TrXwj3UUUg sBbjEL1wjMJsQFgxQx2z qAqdoHyuDP3iVICh wzhig812AhTpm1zsLCVn qNDvTWvfRBJ7E68mr8K1 ZAFbSFCvHWI5xRC2tH4m bGlnbjogbGVmdDsg edYzdVlzKCpnNWkbP111 IHRvcDsnPkJpcnRoIERh cWV6AX25IV06tBYat1S3 kTS8H9ZaCUIzavou nohsxJJ4CLJeQGJhrU38 Vh0maJjzNe1fXHRbZKP9 YBDsjIPuC8ViiK1kVtEe PTPqQMQvH2IkmCDd XYqiR656KMiqToH0SLDr vsSlK6HdHXVayPmhRuC3 f9S2Ml6DO6I8DP65JA56 mAEpo3M0jHB1X9Ay XJUskyugqkkulCX2UVKc HQAaiF87Nh3btUajZh9p PEIyFHU4XOCcwVHpU9Lm zE8lWmQfGZHhMYBp Z3OwvGFuJBjfS741TFgm IaK7CHXcmwIpA7AdSPBn pRxjSwS6b4Q4Lu6LLXp9 ND90HP43aZImt5D6 fGF8T2JhRODsanzhamho mGL8OFYcDTDagI19Ps8o xAcqZq0hKWFwNCO7BHZe uGUfL6XhjC9sAgNg MVFlGEEgW5OhwRUdZSis P944XIdnZuN5KBQdyjXf O9OoMCMfkWvaSwV6f9E1 Eh8GJVLpTR82OVY2 mJZ8PG58EL81R4FfQwkv dGFibGU+PHRhYmxlIHdp ZHRoPScxMDAlJyBzdHls GZ5hRk8uQPYxJOJg vLqarDRwIiGsh5waEVLq ZChiHJ3ntVomO1ScnPE7 KJCql6m6Yy82R49lE1Dp dXA+JCVbqVN5nPJ5 vW9qRgVbQyS9VWeuG148 HsWodIKvJroqe2lwr4lo eUw9BgT8BCIbkbYubIyo NBJ3g3YbBo12M58w IHdpZHRoPSIxNSUiIHZh aPojtk2hhY2pOb3+PGNv jEG3dIZ1bW8zEzTtUjW9 AEtfV959PaJgtAXu Tzxxf4lmb3asfTm0HaPl BZOyaaCwkMvqPYC5j1Dj Ya23X4MnnWyuj0AtSjv1 fh73dBBzf4A0dDZ0 R7CjAHEbwmvkcTAmpVwl QI6bMYEkvuaqVNUvvS1i XOBxN4k0AqYgCgG6WRey D8LsomQ3HWMplPEf KAsoRAO3V18yg9S0DYRa REVmHUE0oMI9rH0zuJih bjogbGVmdDsgdmVydGlj UAvvFIomS318SITa cPgqQNLtbY0wJOZvzCGk wUtzMN1sBQEhkhbyNkHH QVRSSUdIVCwgVEhPTUFT BXF3L9BvGac8EEKn zHtoTQ3khZXqBGxmDj7y fCkawUqrXW3eJLMuotbh JXIjjH2iRLVdzNRpxDmk RH1gQKQkogyfl036 KtRjUAH0WIMvmSHlL0Eh nS2gRdIcVRFhWBPtP1Ma uAEuJVwrH288LCetJqH2 NHParjIrG9GgPOZp dFxaYeF9f8K4Dv2wKl4x MP0gCEj5IT78GR33zGSy m5Z7qLF8U3VzGGPsawdu ngzhcMB1MLSfUJPl nB47zCHhJMczUr8wi0V0 e801RYCyPTJhjG83Be2x vTdoSUAwcUGGqV5eimbi i5hpdthlBqOwSVDj CYe9RIc5ZFYpcFjoVxHx IHC9IbD2JKO2dEDiwR3f xEylkcwihL8oPyc+MjYg VRPwxjG7G1MaCzp2 EHRddHucYM1baFHkUTrw Yk7rjPkmbMtoMW6nVTDh myujIXPnzB1qFJTiuYBb fMbhSM4hGTUvutvu v808GxYcLEU5INGpgFBz K2QtxM9gRxAcUZUwLPPg X4PitQRqRLtkT624OLtz ObD9SBStoxNuF6Ox FGNefYqrPdY9b3C3He3D WPtdEK75EV09wMHur3Y2 aXG5F7QwTUWpuzgkvfcr rKN6CYDgSHLbnX43 nYBcNKbwBo6fr1B9i279 BVRgQMDdxX00Rm0qzEan QFXmgUOAxI8ckdzct4ne cjogIzAwMDAwMDt0 LJz4SCEtbDjrFjChMKH7 CaD2CDW5cVAqwH1nzPed bldlyN3cZxg+J3E5qBS2 aWVudDwvdGQ+PC90 mt13P0ZvObovHlr6RYRt WLI4uHU7mQ1hZDYoLLat r5H2fCD7Y4VkopSlqp0g b2smDROjOJzsP64f pVEjo1V4VTKyoGG4DNHh oDtfFlMjlP27Gen+PGNv iLjfy1VzYxyzn5hzl1oy gGb8PkLmTQLyprIv kRlhJWL7b7IrEa22G10o IHdpZHRoPSIzMCUiIHZh cCmgve3tyE0cCo9+PGNv rIS5lYK0tA4tAaIy KiW5IWpiC780NuFzcJHp Qgayp9hbl1fetDg2RyEk FENmkwNpmFjaIRJ1m5Am Ou04C0EicFkpe5Mq Olk6fv81mFZdv8Y1uWH4 R3NvCOHfcqzysPSkwBir LZ5qEXBdsayaTMHtvV8i IQXyD8f2BgFfNnV1 FQnmC1SsgsI0QWFyfCXi WYDclJJWaW1mybcai7cr ivauVsOgBRHkHFe0KBq9 LWFsaWduOiBsZWZ0 LkU7YZC5wBGguF6nsAzj ffcgtX1dWmr+SFu0a3ur kYDuSR3etJN0BM49SJ87 mUCtp4S8cOM6A2Ja RBQefslplbqekAP1QYXk ZJYjfW42Kp8oyHmdRa0l VSTfBRK9YMFidSMoC1Mj xD9gEnHnHDRdJXGw P6MngOHwFVunZ905SThv TwI9HOQtnhJeL8XqCMBx pEywKvK1p3Z9Pt8KWA33 TP65NJ04fBVex0M3 vRY9L9FgGAAhkhhjzejh zOR9PJVeBPFiqB98Vl8b mMevNh1cJMBfYMN2KMBl tMJaW4QtqV6jMdOd ANOaVGBzD0JngJWzYVhy Z325PBazYqV3NDWprgPs I0EtVWKslHmdCzI7r8O6 Zy3CMi43GV38OC40 lMDdu8U1iGE3X4LoBLVx scjnfnmyvUJ4ECDlWSWv mG16Le2niGsvPt9tGDMd KWB4YZThdFFhR5Bu hJ1jUfVaHKBuYFVuY0Ip nZLlLYfaL844HCzrUiK9 ZYHoriHeH5BpBEOfbZcy ShU5e2J3Hn6JXMbt mvn1R8JuWqanqTU+PC90 MYOnRM79kSRhqKGib8hn yLo4OwSlPEWoXEI0vNpt ULgcf9OzOXPxN73f bGFw (more content not included)... Normal [facility] Consent for Treatmenton Consent for Treatment [id number] #1.00CD:127 Normal [facility] MRI Knee w/o Contrast Righto [...] DORCAS Technologist: CARLA Technical Comments None Normal [facility] RAD - MRI Screening Formon 0 08-21-2022 RAD - MRI Screening Form [id number] #1.00CD:127 Normal [facility] Coding Summary.on 08-17-2022 Coding Summary. CD:[id number]:[id number] Gh0bWw+PGhlYWQ+PE1FV QZbZ03bjWBlfH1AP6mJQ K0GGQMCRLBDWD5YPG9ou SX1KXdtM1GjbuVk ZszemIKyRH84LZc8DQY3 dTpfBNasiD7vnAAlN2n5 EbYvSA91pX15GCswQBGf BbX1DlZzsyvidXDo P8utIpKylRNlBni+PHRh YmxlIHdpZHRoPScxMDAl PcNdtMmbKD2qAt7kYJXq LWNvbGxhcHNlOiBj e6gvRPIaNFfoBT4lsLpx R3OcpQC0EFBoe6c8Tx83 dHI+JJFzNJP1rSemLClr o990GpNnt2tcLYY4 rOOqIGqqZKQ5A59wv8B8 SVMxRWWbOSX5vHL1dX5n kMqiciswW7InyZFnDuD3 TSB2bFZcwS0lfVjv umgxpH4bGnr+Y00HHP0X OOQQEH7HUci4X7WrXfjm dHI+MM51BAQfHS51mQDl aOGbf3fidJu5KoLi KOMpZNP3jSjiEXxio7Ty BTPwA20qaVKuj4D6XZJw vKjjnDQmDsRrbJA1jY5s BEboysqwd4cxgtes Ebomy3vglz64jW08S27x NDccIVDuTUE1UNFrKCSg nWvxfp0dpR9cDz7+IDxj g5uzf8gccMs1YsNn FBRkuzOacKzkFQS1m9Qk Lr87U5RszCbsb7TnPjf4 dt14uKYgg8R1dTO0MPdt BRQsjD0lGYeyToR0 FKJaJgHyrY81aIWjRAdv Za5biNbtlUvqNX9gFUFd rifzIOXzxF0lFWEsgERb qIbhBQ3xBDOtygji q190CoHyAGL7HSKnwUEy O6UxvF1zXdMyWNZpIWLj P4YfvFSwNMlcB593OBui MyW2BCOthnGrM4Wv SAHylWqbMmY1q3B2Ct4A e2MjlhdiMJT3XUrdYFUs YyToYjMuLbJ5X2JzXtz5 KJDtnAnuSJ6tV6Ed ODAekmkrtehesMX9QHEy LKEpsE16nWFoGFutUs4n m7M1k380NKVpDVBluD37 Ok7llPzsPTKpwIOO oL6dfihha3vrljvyKuUn FWJwFVu8IWa8JPXxmOgj ZnTwYVM6HfT7CPL2zEXe uC4dsIchnohdpN8x Oyc+K73wcL2nRUB9IOQ3 mwthAJUxilJkZK23BQ79 L1LxAgvbqZPumBK+PGRp fbEvrAinNZ8eAiQi z5txt9LvZHmgB5WmPVMt EEwwTaa6RGNgPNY2nZH3 fA0oBHYjKZfib5X7qYH9 L6KrqzRkeu4yt8lr ACTcZHybB12qvKKsu5L8 DCCpeIR1TEWrjSprLtKi uQ43Zih+DQKrvDnuz8Uz Urrtx0htp1neuHe4 IjMwJSIgdmFsaWduPSJ0 d4PxKh08O45kHDjzDZEh OMPfVYObVMLopRwbsd8o fR9fGs9+PGNvbCB3 iJQ6iX5vIJJgYtD8ERxj A206XcKumNIuGlvqy8ke k1owsQj1KoTaAJDzzoFc nUurURQ2s5JfMd55 Y07tCUkoOAMtZFLbIAKf WAQtuRaawa5wfQ9xCr8+ XG3ie7etom86xO39bYO+ XKSuTLK1aWgoHNum OYVsiW7cEBauUuS1RRUx YpNuhZ00iZAhIBdfEm4c sLybnDxdZQ1kGDZcyryt t786AkEwd2ptGASj hAEwMHymOJP6U12ab5M4 RQOqWOPvLYY1qNX3wN5t bGlnbjogbGVmdDsgdmVy lPjkIXcgNMrtV018 IHRvcDsnPlBhdGllbnQg LsBoSSn1O3TcQyc0SCVm eDrgUR4trHHuVIdkNn8k aFzmmUtzZB1kHDFw sbbhy793CuLlo1wlNJLc iAKdTIycCVZ2E73op8M6 NASiMARiOAS8aUU9bB0i bGlnbjogbGVmdDsg nbVvfHxkOHikTBhnW402 IHRvcDsnPkJpcnRoIERh bXW3AH76CP07nLHzg2W9 jCD6Q5HzCMSnndpn ykghcLY4NXRnWRWzpC97 Hy3ltNyoZa4zGIUuWPZ7 ZFLykMRnU0VwbA3aKxQk XLJeFOQfF0JavNIx MMsgB135KUlmNwQ6BSRy dhSwJ2ZfAHInlDmiPjP0 e3O5Vw6CC9A3PS49DF79 oKYwt8E6mGY0L6Xi KYMcbdyznihroIB6NIZc XTBjuG19Ac7fhEtvId4g ZCTxMKA2DHMggOPdB3Jn vT8mKmQbGZAnKSAa M6KrrTWmPBtjI234YKot SaR7DWXwddSaA0HqGVAh gOvmJeB0f7H7Vo9DHZw8 OY11JY74kPIqg5T1 hTA1D1ScVBTmtgibfvvr sPR6KERlFQZusE88Ef5l tNpyTt6hDOZwTBT5CYIh jFCxX7PftH9eMvYc APBvHTZfY1FmiXGtNRrv O810UWhdNzE5TSTqdbYh E2GqNAMzuNwrDeC3c4V1 Hy8YBKKdPY25LQS2 wOB7IG41NC96C4OnCpzq dGFibGU+PHRhYmxlIHdp ZHRoPScxMDAlJyBzdHls XG7bFf8nSVKaPEZa uOfefPJhMtQph9cyCJQi NDjnAW1rwVceM0FoeDO4 PEWbs1a3Dn80R16dS5Br dXA+JRJsxZP4mWS0 iP4bFmOfHdM9WVxeN004 ObJunMAnYxeug0ptu2wf aPt6NlY9LSEaiyBplRcb VLC7n3NwHe39H96j IHdpZHRoPSIxNSUiIHZh nTajgy2btG3gQy6+PGNv xKJ0qNW3hH5kZyPbVnU9 RDkuB127FmZtsGNz Ghvem8mti0aliSk6GuHx FCQpqsEmnUnvZXH2k7Lr Fv31R9GvfTwqf4AnBev7 iw13rYYes7H9uIS2 V9WnXDQovmmwcDIjsYxt BK3qORMtsmahHVFefV6s IGMiN6q5GlFnCkE8JLir K3CriaI9NNJftBCi TUmaYMC8W83re0X8FRCc QAGiTDN7tZG9aU5qnIip bjogbGVmdDsgdmVydGlj KVocOGprJ068JGHh tAsvLCXrvS7yQXKpxHTd xZslOX4dLASifebvBbRY QVRSSUdIVCwgVEhPTUFT LOB5T6GbXlc0NZAp wDmgYN1onHRcKFwgHf4u xZvagSixUM5iBEBjoqvz NQHorG3zFBVyjPTgnUja ON5qWVOnyefrk926 SdZeDOD7CXLjcKZjG8Tp vF4oHhNrUBYzQMUcS4Pe iKFjWQsiE371ODbfUdO5 UTQwdsHdA8MdVMCh cWyiHrT8a2T0Zf1rYg1c DE9tFWs2XG55BJ54yWGh a7Z0kJK7R8IsBTBnntsi dqnbuEA4CTMpCHRz vD60iDEuUVmdYu9hj1U9 f493AUEaGFPmmR32Fu7n kUbxMHTkhUGLxT1ctfus r3nxatkzFjEhGEEw IVp0CKg4CMJdyMnjHoPz JCJ3LkV4JUJ5hCUfaE3f cQxgnwuroM5rMae+MjYg PLElueZ8P0MoLaf4 LKRodNrdTP8rvTUcPRuc Qa3mmBxgcFijBX3sWBMi glsnCGSxzT4eOOAcjWGd vXruJQ7lZAWzjdnl k837StPwAJB6IUWufFUi M7DtsE3lGfYrRJJdIOQh J2MamUTpQMvjY958OPwr PoZ0UQSklfVvU3Rp LHGxfXgdDhD0h8K9Xk2W INunWA90OD76fLXpx7D7 xRI9Y0LxNDAbhwabjtcr cVV9CCUkDGYfeA94 tKIzEAnvHo2dq3W8b452 WMNtBWAmxS15Vn2gxGal WWDxzZKRcA3cxvbtv8fp cjogIzAwMDAwMDt0 VBp8XVZdpZheHxEkZVA2 SwH4UFZ7fYGriI5nnJha kypvhA2lWfn+Z3Z8nZK6 aWVudDwvdGQ+PC90 cp47B1PbHaatQle2YBHr YDA8gRY0oQ8lNMBvAZip t4P8pOP0K3UabgFwaz8b u1sfGCAiHFvwV17l nMWqh1T1IBUjwVI4LUDx hTesGtQpgF38Lek+PGNv xVuzr1PgZpayl6qqt4yg tPe4BlKqKXUvtaSa oLriOMV4l0JhOb65T92h IHdpZHRoPSIzMCUiIHZh jVqkbf2xcI5aJn7+PGNv aAM2dIX1sF6sKiYa GjD4TWwoP937VnFeaHEk Norkl0xoo3pxjKj6WyFw OYChhzAcrNsrPHO1j6Rr Uj46O6AcjNgnq0Eb Mdd0xs41sFXmt4P1wPC9 T5RrAXUwtxxubYNarJha YM7xAFXzghhmFSNcpT2g VEZuU6j5YtLuDqS7 QCtxK6NlrqH0YRGvxLQf JQOlwJWXtV3mlcrga0po sscmVqOrAJFtFEj7JHc3 LWFsaWduOiBsZWZ0 IsB1HNT2nENrsV7oyErr azrdlG3aTsu+TAq4k4gu mZLhOD3jkGT3ZY70NH53 cVTlr0S5yRN5X0Zi ULCtoqzpuregySQ4IRTy SQYoaY70Id3scXmbYa5k NUMnNMG6GMLfnEHoX9Qj oJ1iSaXdVZRyYYDm H1NdaHVtHMevV933YVgi CtV0QQEgikOdG3GbOFDd bNzfYdP3b5B1Vd9IMI85 NR22QC16pABys8J7 yLM2Q9MbNCQcllclzqgw bXR8LQEaYUIdpJ44Qe8z pHznPe6mOZWtUDK1IMNj dJCnK9OdhO4uSrIg YPWcQDKqY7YxjTFdFEip S045IHywJmS6RFDwebYg Z0NtIITvzCulCgB7q2S9 Iq7BSo94OA93NF59 aRZvv3U2wXO6M5WpSGDm ofhbvbvskWH6KTJrACHf sI93Bx8rpMkrWh3aHEYr LDI7GEEafYHlU9Rl mM5gJpHbOOFxQFXkW3Dr pIJlBDqwD649QIuySfR9 ZVThzcSiX9KvMTTqqYnl MfK3b2F8Ko5ZWYcs xtg0B7SaNpbpzGW+PC90 TCXkLN86bZKmjGWak2qi fTe1EeVmBBUaUPG7eAgp CVwvd1TuOWStE95g bGFw (more content not included)... Normal [facility] Consent for Treatmenton 07-18 Consent for Treatment [id number] #1.00CD:127 Normal [facility] US Abdomen Completeon 2022 US [...] Arreguin M.D. Transcribed by: DORCAS Technologist: ZACHARY [facility] Physician Orderon 08-14-2022 Physician Order [id number] 9#1.00CD:127 [facility] Pre-Certification Formon Pre-Certification Form [id number] 1#1.00CD:127 [facility] Coding Summary.on 08-11-2022 Coding Summary. CD:[id number] Gh0bWw+PGhlYWQ+PE1FV OSaW31gpSFfrW0VN9eOH J9EYMPSYFDXLU7ICY6lc QW9KAfoH0QnllXh TuzasBDxVV50EHa3CFI4 sSahVVjhrC8hgZCdP3u1 EeLoOT63hE51KSlgCOZl NjZ8TrBiujyomPTj B5jeMaPwfCQaRxe+PHRh YmxlIHdpZHRoPScxMDAl GxQwaVosZY6sHy1rWACw LWNvbGxhcHNlOiBj f5dgQKBdMMyuPB5wxUto N5YofYV7NSZbn0a3Rw23 dHI+KKBvEBK7jZxwNHtm t275KvQrx1aqSWZ0 cTTzQYuwWMO0T80sg2R1 BHVjTRDgUNU5vSB5nN6o hMcxiksfH6BftMZjAfA6 FIL0iOHheW5gmYkv vqdoeI3lBbb+K31JXS0I OARKCL2JOhj9X4NrEygz dHI+BN57JFZxQR29cASw pPOyh0vzcWt9FyDj TEWiPLW1tEhkMHkke3Ep YVReF64ufFJpu3J5WAAh vUopyGSeJqGwvCD9dG4d VHsnxijww7ihookk Olstl0xwhy16uU63S62l TAdsSXZxROH2WSFdGPJm yPuhdd2xnO4bJw8+IDxj l7oit4bmvFn8UzWl LVMchqLoyEbiKWZ7y2Ev Ro49X8RksQrld9RnOzs0 jh29fFOps5W6iNB9UEty AQYbdP3sPAjfYwP0 FOUnPxDwkB47lNFqAFbh Uw5hnGwraLehDK9sYOBk ezzgWLAkiW1aFNRenERj gMgfWR0hORIotevt f443KwWlSAK4THQgyOQa N6DzxW1eCxLbSSOkMGKe N1QqlQNrBMihV438TFbt DyS8GRQvurTnA5Hi PJSkfOcfByD7d3X3Fu4U d0FejydqSAY1FUsqCMSy OoP2EbEhMuF9A7HgMkq4 AJBrbTpoLZ9eB8Dv LRQwklnfhnyzsUP6VXWa UTUweL12oVDaXZkrOq2a e3D1m996LWLwJPEccJ27 Hp9suHdmJYSawXAB aS6kukbva3shgenkYrFw ZGVnLVa7ADs6ORCboDcn XcAhUMM0IsA8TWY9aPEs lG5rzEyahyibqR7q Oyc+S94cxM2gWZA5NNS3 zutnWOAymcHaPJ77QL04 I7ZdGthetBMnyTK+PGRp gpBmaUbxRT6mMnPw i7dog3SdNZwyW6PlRHGf HDepBnt3XEDqOIC2cXY8 mD4gHXHfOCdqc2X1bHX7 Q0VrbpKzmj1hx5hd BIFhCVfrH75ruYPzr7K9 JHDurPP6WTRjeRitStGc wF87Sdt+SXZmxCnor7Xe Dvcbc2zws1ohfWj4 IjMwJSIgdmFsaWduPSJ0 x1TrUn03V85oBZxmZTRk ETIaHWHjQTQjqXsmhh9w lN4yTs0+PGNvbCB3 cMS3mX6lYGOqGyA6VDsy J528YfRyiVVaAqulg7rr e4pngDx5JnOcESMugcJa qApqPIL7k9LnDs64 Q63zIPahUFHlDWEtIFTv GHAqjRsscu2uuZ9jGh0+ MT3rz8sykt44aA19oJW+ BXQoSNN4yFulRSuu XZNdrK6fMLqhGmC5QXXa DnOlcK74xINpZWsxIr7c tPlwmXkpUP9zBONgzdvz p620BuOtx7rzRYTl rXKpEYnrOFQ0J42cn1J8 OETuTEEmTIO3sET3pU1u bGlnbjogbGVmdDsgdmVy xLkuMGadYOfdZ834 IHRvcDsnPlBhdGllbnQg TdJrKFx4P9EqLbw3BBAo pKkzFK7zhVEhUCluNe2t sSrzuIsfPC0bHRZd nukid013GmPhc3ttIMWh cXNyFNgnMSP6Y85zt0S4 YHKiKBXtBZL0nMF6iA0v bGlnbjogbGVmdDsg whTqbBxaKHosYEvcE437 IHRvcDsnPkJpcnRoIERh zXJ4RK68KN16dOUwp1O2 fVP1O4AmERGjdmqr xmxxiYI1HMUmIUFhbP82 Cu9hyRqvXf9iAGXcQBE1 TVMdkWCfZ5WguP3yBjXy JDLsGJGbG7FttHKc BAthV072HYxvOdH1JTOj jcTiL8JmZCEmsTrjRjA0 x7E1Wj6VT3K6LA29WN52 bEGbo4G3uVW8I1Wx JVRtdnqlbdpzzAR1GVKv NDMyaV31Ow5chFvaAo6s HQYoXQU1RQClsJKhG9Im iL9bYyYkAKFqMADi I3KvqUEwIMriI772NNox UnV5XTAbdcUnA3HhTLUw hFacCvU1f5Z6Pe4CLUn4 IQ97GC38jXWac9S2 mOQ0K6JxOTHzgmvcornd mJP1YTLlIJZmdB82Va5w uYdjFe3bMRVuPCA4LQNt wDQwR2RkoG3sMvMv UBEjVIRoP8MzrFArJEqb V170PYryXkA3YPFpxuSy J3DvMILwaGkvEwO9n0G0 Vl7SHBUiHV80ILF7 cPP6EO98KG58X9BlVnuw dGFibGU+PHRhYmxlIHdp ZHRoPScxMDAlJyBzdHls KO5gOz4vZPYmFBZr tFyqjAPwCaGxz3txJZEa YWxaFX8bvSksF4UwvKN3 CRRen6t3Fw35Q10fA3Ke dXA+LIPjdUU2yYU4 xL7eScUaOwV8RXpjF858 SuTjqFKwAtrsy6ubv7br gIs3XtX5FDDdptKjbDlu ZUH7j2BiFk07M40z IHdpZHRoPSIxNSUiIHZh sPiqfi8puM4nKy7+PGNv mNL0fEZ7nP8yItXdTfP8 GEnqS883IxUzbSWi Mqidz3ubt5pdbOm8HxVg EQPfkzYhbMmwDZN3f5Vr Ja18Q9TewQhvr9LrDsx5 ab31zYZyj7W6bHF4 O6OnYSOlrlvzyGEmbIqa ET7rDBGkopzzCAFrvS5s XTBzU9v6DqDyEnA5VGkj C9LuydH3ZBGwoPTw HHcnBZY7H07ok0Y1CGRq VPDmPRY8lPX1bF9ccHac bjogbGVmdDsgdmVydGlj CNxcVUkmC355VMBd oAjyCGVjqT0pYCZvxSLr lSpwDC2tYWFizfgfXvAK QVRSSUdIVCwgVEhPTUFT GMI8K8HbPsp4RTDi pPflDA2dgOLoWGopFh5q vKjxoXipTH3eYCQpswim TDXksI1kSPRmaJFogUjw PU4uHUYhozrwc138 GyRdDGL4ZWZhiVBnK4Pm tO3aVwKwGIVoLJVhF7Uu vPRuSLmwM428BUupZrC0 WGQnujGjM6KoOVRa tEvgDaB8w8T7Ai3eOz8s TT8tQNq9FX95KE01zWUv q7E6tXP7N2PjRZWogqhk ugzpcTQ2UJTgPKUa yM57wPXzPOcjGr6bm2T8 s970SYTgZWUcoK40Sd0b jSorZIPawFKYxN9ecxis y7lqzibwHoNmKGVl USg7RIu3HINidLsaMqDc LMV8FpJ9XZZ8dNZqfH3e hKphjgflsS4aZno+MjYg AAColdX8K2CpUsf0 YGUoxVxeKY9vmYPaZBhz Td4nlNricPddWB0bZHOj yyzzWQXwgO9iRZVdhJWk oLzuLS8qBYHphfsf u050JeYiRJV7DRHiqEXg I5VvxX8nLdExHUQmHUNl R7PozCYnEDjgI946KPqr PcN9BCVvzxZjR7Ig ZLGszQvbPoH5u5A5Iu6N NBqoWQ58PL91hPKqr5R4 mHR2U7JnNAKynowkruzm cHF8ZACjTIVjiS83 hFZbQTaqLz3nk2B8b348 ZHUoBTLahM10Gx2bpTpj ZTCcbBARaG9wbfsfo2iz cjogIzAwMDAwMDt0 LLk8AEJkjIxpJgVgPSO7 JbT6EES0lAJggK1stWnx rdvmlK6fIpr+LO2rzehb mwA6OI10XQ95N6Jy PjwvdGFibGU+PHRhYmxl IHdpZHRoPScxMDAlJyBz qLggSG7pNl7bHVMnXVMx oSkpvBEoRwPza7nt UAIeJYunCC7ctTeyS1Ey qTT0TDTib6s3Qc77P48j Y3TaiOP+PURqkWN6qDE3 cS2iHmLdSaG1MTwj A724OfWwcKFjVpaor3oy x2apxRc7HqEaAGGdiiRy sOdnLEU9j8TbIw71V35m IHdpZHRoPSIyMCUi MIAbuDfvwa5toX8eCe6+ WMPtjOY2xZW8xW8fLpZd FrQ4BEikJ481RrOuzXKm AgrwJ91eS9TnkNU+ KLYnGvz0PDYhkVkhNR9b gNHpWEuaRw1xUIC5GnSi HxZkQKvuS3TuMBSkhaft qeaicSD0OOTqIAAu oL54Qz5rgDfkRn0vDXIp UMA2VGTcoGLhX9EiwI4b MoAnPJMgIXUmQ2YgtUAo RQptO237VEfvNhG2 PZTfkiZcY8SaBPSkiHel WtV8u6X7Dd6OkUqqkRGt JS0gBxVvVUo2H8ZbXkx3 OXUegWtiUS4vgYKk VMoxMl0hyOvmfFimIJ1v VTSrcvnml425ChAsx6ca GOHojADnQTgtXIG4L50b f7L3UZUkUCUwRVB9 tLI1wO7tzOcbijetdMMw dDsgdmVydGljYWwtYWxp F161YJNhlXclDwUHQlm4 Y1MpXqo2ASCbtBde LU6pnERwSCzdQh7rtNci eBzuQY5gIGWfwwhrt890 ChShi3gfERYqaCJxJKdh UYK4Z08bs4M0UCBq MIKiXLB9bGZ0aY7hnTeo bjogbGVmdDsgdmVydGlj YJvoSIfhU509RKVucFwo Hl6ZOpg4M9QeXww9 IHUdhWreDS9fiIXmQBhv Vd4bfBankMqzOO1tFTEw hjlxt113LaXrd3yzGVDn rQNsXKjqCCT4P98e j2J6GWBbOBIbXSJ2iIC1 eK3moJkbxviemOYalUud xjFquJttGPdoBIfhI689 IHRvcDsnPlBheWVy OjwvdGQ+XE28bw76D2Mn QlktPzq8ARNyXMG5aAU3 nP5cSXRdCFfyt0J1pNJ0 T9XgbeYgix9ry9ax YXBz (more content not included)... Normal [facility] ED Note-Physicianon 08-11-19 ED Note-Physician [...] day(s), # 28 tab(s), Refills(s) 0, Pharmacy: [facility], 193, cm, 08/09/22 16:56:00 EST, Height/Length Dosing, 115.2, kg, 08/09/22 16:56:00 EST, Weight Dosing ondansetron, 4 mg = 2 mL, Injection, IV Push, Once, Stop date 08/09/22 17:30:00 EST, STAT, Start date 08/09/22 17:30:00 EST, 08/09/22 17:30:00 EST ondansetron, 4 mg = 1 tab(s), Oral, q6hr, # 12 tab(s), Refills(s) 0, Pharmacy: [facility], 193, cm, 08/09/22 16:56:00 EST, Height/Length [...] UA With Cult Reflex Medications Administered Given PB6859 [F], 1000 mL, IV ondansetron 4 mg/2 [...] days 08/12/2022 EST [address] [place] [address]- Business (1) Add (more content not included)... Normal [facility] Comment on above: Result Comment: Elec tronically Signed By: Domingo Mcmillan PA-C\.br\Date and Time Signed: 08/09/22 20:16 EST\.br\Electronically Co-Signed By: Jv Dacosta DO\.br\Date and Time Co-Signed: 08/11/22 07:00 EST Discharge Instructionson Discharge Instructions [id number] 6#1.00CD:127 Normal [facility] Auto Diffon 08-09-2022 Basophils/100 WBC (Bld) 0.6 % Normal 0.0-2.0 [facility] Comment on above: Order Comment: Order Added by Discern Expert. Performed By: #### 2 [id number], [id number], 6767213, 1485158, 2756162, 9932524 ####[facility] [address] [place] [address] Basophils/Leukocytes Auto (Bld) [Pure # fraction] 0.1 E9/L Normal 0.0-0.2 [facility] Comment on above: Order Comment: Order Added by Discern Expert. Performed By: #### 2 957062, [id number], 3321645, 2894530, 6224328, [id number] ####[address] [place] [address] Eosinophils/100 WBC (Bld) 1.2 % Normal 0.0-8.0 [facility] Comment on above: Order Comment: Order Added by Discern Expert. Performed By: #### 2 182440, [id number], 2411395, 8535406, 1998632, 3357403 ####[address] [place] [address] Eosinophils/Leukocyt es Auto (Bld) [Pure # fraction] 0.1 E9/L Normal 0.0-0.5 [facility] Comment on above: Order Comment: Order Added by Discern Expert. Performed By: #### 2 536903, 73430704, 7487643, 9083235, 5329616, 9819665 ####[address] [address] Lymphocytes/100 WBC (Bld) 17.1 % Normal 14.0-50.0 [facility] Comment on above: Order Comment: Order Added by Discern Expert. Performed By: #### 2 770494, 07776822, 5466389, 7856392, 4781900, 4963655 ####[address] [place] [address] Lymphocytes/Leukocyt es Auto (Bld) [Pure # fraction] 1.9 E9/L Normal 1.0-4.0 [facility] Comment on above: Order Comment: Order Added by Discern Expert. Performed By: #### 2 306372, 75674695, 5042790, 2646517, 7961547, 6273117 ####[address] [place] [address] Monocytes/100 WBC (Bld) 9.2 % Normal 4.0-14.0 [facility] Comment on above: Order Comment: Order Added by Discern Expert. Performed By: #### 2 356985, 91644581, 5784822, 5560102, 9047233, 3756335 ####[facility] [address] [place] [address] Monocytes/Leukocytes Auto (Bld) [Pure # fraction] 1.0 E9/L Normal 0.2-1.0 [facility] Comment on above: Order Comment: Order Added by Discern Expert. Performed By: #### 2 596810, 96954817, 6986739, 0908704, 5963072, 9939477 ####[address] [place] [address] Neutrophils/100 WBC (Bld) 71.9 % Normal 36.0-75.0 [facility] Comment on above: Order Comment: Order Added by Discern Expert. Performed By: #### 2 064467, 59750955, 2593461, 2966732, 3345322, 9629319 ####[facility] [id number] [place] [address] Neutrophils/Leukocyt es Auto (Bld) [Pure # fraction] 7.8 E9/L High 2.0-7.5 [facility] Comment on above: Order Comment: Order Added by Discern Expert. Performed By: #### 2 467698, 45972394, 9826396, 7369041, 9819027, 4617736 ####[facility] [id number] [place] [address] BMPon 08-09-2022 Creatinine [Mass/Vol] 1.1 mg/dL Normal 0.5-1.3 [facility] [facility] Comment on above: Performed By: #### 2 500543, 55247984, 4105073, 9089179, 2598959, 6290644 ####[facility] [address] [place] [address] Urea nitrogen [Mass/Vol] 17 mg/dL Normal 5-21 [facility] Comment on above: Performed By: #### 2 193918, 46292505, 8613083, 7672500, 8927558, 4940600 ####[facility] [address] [place] [address] Urea nitrogen/Creatinine [Mass ratio] 16 No Units Normal 10-20 [facility] Comment on above: Performed By: #### 2 740798, 09244083, 5488224, 2112603, 3807556, 1105416 ####[facility] [address] [place] [address] Anion gap [Moles/Vol] 14 mmol/L Normal 6-16 [facility] Comment on above: Performed By: #### 2 856567, 42838158, 5935475, 9780909, 0617093, 9427539 ####[facility] [address] [place] [address] Calcium [Mass/Vol] 9.6 mg/dL Normal 8.9-11.1 [facility] Comment on above: Performed By: #### 2 905163, 09803625, 1670114, 6151669, 6411029, 1562355 ####[facility] [address] [place] [address] Chloride [Moles/Vol] 100 mmol/L Low 101-111 [facility] Comment on above: Performed By: #### 2 597749, 36244220, 2961683, 6511367, 7344161, 2660880 ####[facility] [address] [place] [address] CO2 [Moles/Vol] 23 mmol/L Normal 21-31 [facility] Comment on above: Performed By: #### 2 508669, 73940148, 8650434, 1646686, 5686654, 7817469 ####[facility] [address] [place] [address] Glucose [Mass/Vol] 98 mg/dL Normal 55-199 [facility] Comment on above: Result Comment: If t his glucose result represents a fasting glucose, interpretation should refer to the following reference range: 55-99 mg/dL Performed By: #### 2 752075, 76345919, 4402999, 1727506, 3461517, 5167652 ####[facility] [address] [place] [address] Potassium [Moles/Vol] 4.7 mmol/L Normal 3.5-5.3 [facility] Comment on above: Performed By: #### 2 009718, 90888340, 8754981, 7838271, 8848602, 0353755 ####[facility] [address] [place] [address] Sodium [Moles/Vol] 132 mmol/L Low 135-145 [facility] Comment on above: Performed By: #### 2 313660, 58770129, 7556613, 2467398, 5084832, 9992567 ####[facility] [address] [place] [address] CBC w/ Auto Diffon Erythrocyte distribution width (RBC) [Ratio] 13.2 % Normal 10.9-14.2 [facility] Comment on above: Performed By: #### 2 774329, 54507189, 8144210, 0510842, 5716501, 3076157 ####[facility] [address] [place] [address] Hematocrit (Bld) [Volume fraction] 53.9 % High 37.7-49.0 [facility] Comment on above: Performed By: #### 2 521012, 51267452, 9009326, 2309150, 0387460, 4390690 ####[facility] [address] [place] [address] Hemoglobin (Bld) [Mass/Vol] 18.0 g/dL High 13.5-17.5 [facility] Comment on above: Performed By: #### 2 045904, 75640372, 0164812, 6419530, 6280934, 4774395 ####[facility] [address] [place] [address] MCH (RBC) [Entitic mass] 29.1 pg Normal 27.0-34.0 [facility] Comment on above: Performed By: #### 2 085337, 68975506, 4601563, 0463336, 1518328, 8269204 ####[address] [address] MCHC (RBC) [Mass/Vol] 33.3 g/dL Normal 31.4-36.0 [facility] Comment on above: Performed By: #### 2 819018, 87749058, 3810196, 2340987, 7387513, 6015667 ####[address] [address] MCV (RBC) [Entitic vol] 87.4 fL Normal 80.0-100.0 [facility] Comment on above: Performed By: #### 2 338663, 47097169, 8109050, 8003000, 9687203, 9497104 ####[place] [address] Platelet mean volume (Bld) [Entitic vol] 7.2 fL Normal 6.4-10.8 [facility] Comment on above: Performed By: #### 2 443360, 20159775, 5863116, 3208216, 1867169, 6536468 ####[address] [address] Platelets (Bld) [#/Vol] 328.0 E9/L Normal 150.0-500.0 [facility] Comment on above: Performed By: #### 2 773559, 21407929, 5880236, 2039614, 3399566, 8766110 ####[address] [address] RBC (Bld) [#/Vol] 6.2 E12/L High 4.3-5.9 [facility] Comment on above: Performed By: #### 2 694283, 96875376, 4532218, 6580900, 8592611, 9734187 ####[address] [place] [address] WBC corrected for nucl RBC Auto (Bld) [#/Vol] 10.9 E9/L Normal 4.0-11.0 [facility] Comment on above: Performed By: #### 2 692870, 14305949, 6556462, 7195321, 0803705, 1572085 ####[facility] [address] [place] [address] CHEMISTRYOrdered By: SYSTEM SYSTEM on 08-09-2022 Albumin [...] [Vol rate/Area] mL/min/1.73 m2 Normal >=59mL/min/1.73 m2 [facility] [place] S GFR/1.73 sq M.predicted among non-blacks MDRD (S/P/Bld) [Vol rate/Area] mL/min/1.73 m2 Normal >=59mL/min/1.73 m2 [facility] Chem S Globulin (S) [Mass/Vol] 3.4 g/dL Normal 1.4 - 4.0 gm/dL FT [facility] Glucose [Mass/Vol] 98 mg/dL Normal 55 - 199 mg/dL [facility] Lipase [Catalytic activity/Vol] 24 U/L Normal 13 - 58 unit/L [facility] Potassium [Moles/Vol] 4.7 mmol/L Normal 3.5 - 5.3 mmol/L [facility] Protein [Mass/Vol] 8.7 g/dL High 6.0 - 7.8 gm/dL [facility] Sodium [Moles/Vol] 132 mmol/L Low 135 - 145 mmol/L [facility] Urea nitrogen [Mass/Vol] 17 mg/dL Normal 5 - 21 mg/dL [facility] Urea nitrogen/Creatinine [Mass ratio] 16 mg/mg [...] 300 Contrast amount in ml's: 100 Normal [facility] Consent for Treatmenton 07-17 Consent for Treatment [id number] #1.00CD:127 Normal [facility] ED Clinical Summaryon 2022 ED Clinical Summary [place] [id number] ED Clinical Summary Person Information Name: TIGRECINDY ESCOBAR [facility] Age: 26 Years : 1995 Sex: Male Language: Equ[place]inean PCP: Bi BELL DO Marital Status: Single [...] 08/09/2022 20:08:07 08/09/2022 20:08:07 08/09/2022 20:08:07 ADDRESS: [address] [place] [id number] PHYS DOC NOTES: MEDICAL INFORMATION: Prescriptions Given: New Medications [facility], [address] [place], [place] [id number], [phone] dicyclomine (dicyclomine 20 mg Tab) 1 Tablets [...] Follow up: With: Address: When: Bi BELL [facility] [place] [id number] LiB ([employer] In 3 days 08/12/2022 DIAGNOSIS: Abdominal pain; Diarrhea; Nausea Normal [facility] ED Patient Education Noteon 08-09-2022 [...] oral rehydration solution (ORS). This is an lbnc-tnb-qslctpk medicine that helps return your body to [...] sports drinks, and soda. ? Eat bland, dkxm-dg-awplej foods in small amounts as you are able. These foods include bananas, applesauce, rice, lean meats, toast, and crackers. ? Avoid alcohol. ? Avoid spicy or fatty foods. Medicines ? Take qout-aul-clvxdrm and prescription medicines only as told by your health care provider. ? If you were prescribed an antibiotic medicine, take it as told by your health care provider. Do not stop using the antibiotic even if you start to feel better. General instructions ? Wash your hands often using soap and water. If soap and water are not available, use a hand staff antisubmarine officer. 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 ? Contact a health care provider if [...] 06/22/2003 Document Revised: 11/18/2019 Document Reviewed: 12/06/2018 [employer] Patient Education ? 2019 [employer] ([employer]). Nausea, Adult Nausea is the feeling that [...] a drink (more content not included)... Normal [facility] ED Patient Summaryon 023 ED Patient Summary [place] [id number] Patient Discharge Instructions Person Information Name: CINDY SYLVESTER Age: 26 Years Arrival Date: 08/09/2022 16:50:34 Discharge Diagnosis: Abdominal pain; Diarrhea; Nausea Primary Care Physician: Bi BELL DO Provider Information Primary Provider: Jv Dacosta DO Advanced Lamp Mechanic:Domingo Mcmillan PA-C The exam and treatment you received in the Emergency Department were for an urgent problem and are not intended as complete care. It is important that you follow up with a doctor, nurse practitioner, or physician?s access services assistant for ongoing care. If your symptoms [...] When: Bi BELL [address] [place] [address] LiB (1) In 3 days 08/12/2022 In the event that this physician does not participate in your insurance network, please consult with your insurance company to find a nearby participating provider. Patient Education Materials: Diarrhea, Adult; Nausea, Adult A MESSAGE TO ALL PATIENTS REGARDING OPIOIDS PRESCRIPTION OPIOIDS: WHAT YOU NEED TO KNOW Prescription opioids can be used to help relieve jmcnabgq-jb-dozurt pain and are often prescribed following a [...] be struggling with addiction, tell your health daycare worker and ask for guidance or call [facility] National Helpline at 6-930- (more content not included)... Normal [facility] HEMATOLOGYOrdered By: SYSTEM SYSTEM on [...] 08-09-2022 Albumin [Mass/Vol] 5.3 g/dL High 3.3-5.0 [facility] Comment on above: Performed By: #### 2 160843, 59959003, 6150006, 3311820, 9603599, 8913986 ####[facility] [address] [place] [address] Albumin/Globulin (S) [Mass conc ratio] 1.6 Normal 1.1-2.2 [facility] Comment on above: Performed By: #### 2 679897, 85710596, 7750673, 8197989, 1029829, 5969899 ####[facility] [address] [place] [address] ALP [Catalytic activity/Vol] 108 Int._Unit/L High 21-98 [facility] Comment on above: Performed By: #### 2 252364, 37163899, 7460789, 3953538, 4790925, 1532317 ####[address] [address] ALT No additional P-5'-P [Catalytic activity/Vol] 46 Int._Unit/L Normal 6-46 [facility] Comment on above: Performed By: #### 2 986903, 53086914, 4168241, 9280985, 0482179, 3360322 ####[facility] [address] [place] [address] AST [Catalytic activity/Vol] 26 Int._Unit/L Normal 5-43 [facility] Comment on above: Performed By: #### 2 857513, 49641676, 8111609, 9455637, 8308246, 0362088 ####[facility] [address] [place] [address] Bilirubin [Mass/Vol] 1.3 mg/dL High 0.0-1.1 [facility] Comment on above: Performed By: #### 2 085354, 85722823, 3013779, 1360945, 3384523, 6150553 ####[facility] [address] [place] [address] Bilirubin.direct [Mass/Vol] 0.2 mg/dL Normal 0.1-0.4 [facility] Comment on above: Performed By: #### 2 223556, 16289313, 5150338, 6882006, 4744626, 5040381 ####[facility] [address] [place] [address] Bilirubin.indirect [Mass or moles/Vol] 1.0 mg/dL High 0.1-0.9 [facility] Comment on above: Performed By: #### 2 248715, 26391024, 4793423, 4237745, 8772301, 4419805 ####[place] [address] [place] [address] Globulin (S) [Mass/Vol] 3.4 g/dL Normal 1.4-4.0 [facility] Comment on above: Performed By: #### 2 444783, 26570344, 7267817, 2716935, 8779175, 9299157 ####[address] [address] Protein [Mass/Vol] 8.7 g/dL High 6.0-7.8 [facility] Comment on above: Performed By: #### 2 412819, 83967760, 9814298, 0776289, 4995826, 0417793 ####[address] [address] Lipase Levelon 08-09-2022 Lipase [Catalytic activity/Vol] 24 U/L Normal 13-58 [facility] Comment on above: Performed By: #### 2 472066, 98335470, 2542407, 7697765, 0688563, 9178534 ####[address] [address] Reminderson 08-09-2022 Reminders - From: Trupti Marques CNP To: Sri Tyler; Sent: 08/08/2022 08:58:32 EST Show up: 08/08/2022 08:59:00 EST Subject: Ambulatory Reminder Reminder/Recall Colonoscopy in 2031. 04/06/2032 - From: Sri Tyler To: [facility] - Reminders/Recalls; Sent: 08/09/2022 13:13:14 EST ! Show up: 02/14/2032 13:13:00 EDT Due Date/Time: 03/16/2032 13:13:00 EDT Normal [facility] UA With Cult Reflexon 2022 Bilirubin Ql (U) Negative Normal Negative [facility] Comment on above: Performed By: #### 1 7080844 ####[facility] [address] [place] [address] Clarity (U) CLEAR Normal Clear [facility] Comment on above: Performed By: #### 1 1799172 ####[facility] [address] [place] [address] Color (U) YELLOW Normal Yellow [facility] Comment on above: Performed By: #### 1 0659590 ####[facility] [address] [place] [address] Epithelial cells.squamous LM.HPF (Urine sed) [#/Area] 3-4 Normal 0-2 [facility] Comment on above: Performed By: #### 1 7357153 ####[facility] [address] [place] [address] Glucose Test strip (U) [Mass/Vol] Negative Normal Negative [facility] Comment on above: Performed By: #### 1 1530326 ####[facility] [address] [place] [address] Hemoglobin Ql (U) Negative Normal Negative [facility] Comment on above: Performed By: #### 1 6482091 ####[facility] [address] [place] [address] Ketones (U) [Mass/Vol] Negative Normal Negative [facility] Comment on above: Performed By: #### 1 2573685 ####[facility] [address] [place] [address] Muncy.plasma/Lithi um.RBC (Bld) [Mass ratio] 0-3 Normal 0-3 [facility] Comment on above: Performed By: #### 1 9394853 ####[address] [address] Nitrite Ql (U) Negative Normal Negative [facility] Comment on above: Performed By: #### 1 4553427 ####[address] [address] pH (U) 6.0 [pH] Invalid Interpretation Code 5.0-9.0 [facility] Comment on above: Performed By: #### 1 0177053 ####[address] [address] Protein (U) [Mass/Vol] Negative Normal Negative [facility] Comment on above: Performed By: #### 1 1649046 ####[place] 98[address]657 Specific gravity (U) [Rel density] 1.015 Invalid Interpretation Code 1.005-1.030 [facility] Comment on above: Performed By: #### 1 9344784 ####[place] 98[address]657 Type of Urine collection method Clean Catch Normal [facility] Comment on above: Performed By: #### 1 0733853 ####[address] [address] Urobilinogen Qn (U) 0.2 {Casa'U}/dL Normal 0.0-1.0 [facility] Comment on above: Performed By: #### 1 4198283 ####[address] [address] WBC Auto Ql (U) Negative Normal Negative [facility] Comment on above: Performed By: #### 1 9306117 ####[address] [address] WBC LM.HPF (Urine sed) [#/Area] 0-5 Normal 0-5 [facility] Comment on above: Performed By: #### 1 2188411 ####[facility] [address] [place] [address] URINALYSISOrdered By: Jose Rose on 08-09-2022 Bilirubin [...] PM) Normal Negative [facility] UA Auto SS Muncy.plasma/Lithi um.RBC (Bld) [Mass ratio] 0-3 /HPF Normal [...] [facility] UA Auto SS Urobilinogen Qn (U) 0.9424435 {Casa'U}/dL Normal 0.0 - 1.0 EU/dL [facility] UA Auto SS WBC Auto Ql (U) Negative (08/09/22 7:08 PM) Normal Negative [facility] UA Auto SS WBC LM.HPF (Urine sed) [#/Area] 0-5 /HPF Normal 0-5/HPF [facility] UA Auto SS eGFRon 08-09-2022 GFR/1.73 sq M.predicted among blacks MDRD (S/P/Bld) [Vol rate/Area] mL/min/{1.73_m2} Normal >=59 [facility] Comment on above: Order Comment: Order added by Discern Expert. Result Comment: eGFR is race adjusted. AA=. Performed By: #### 2 314738, 66333144, 5106834, 6728003, 4743518, 0329270 ####[facility] [address] [place] [address] GFR/1.73 sq M.predicted among non-blacks MDRD (S/P/Bld) [Vol rate/Area] mL/min/{1.73_m2} Normal >=59 [facility] Comment on above: Order Comment: Order added by Discern Expert. 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 Kidney failure is indicated at less than 15 mL/min/1.73m2. Performed By: #### 2 616653, 26573590, 1244780, 2660380, 5599115, 4123936 ####[facility] [address] [place] [address] Ambulatory Visit Summaryon 0 08-08-2022 Ambulatory Visit [...] Sound 2022 9:00 AM EST With: Where: [facility] Services Sunday 10:20 AM EDT With: Trupti Marques CNP Where: [facility] Normal [facility] Gastroenterology Office/Clin ic Noteon 08-08-2022 [...] elastase 8 (more content not included)... Normal [facility] Comment on above: Result Comment: [...] these instructions at home: Medicines ? Take nrwr-twl-cwarqrz and prescription medicines only as told by [...] your condition for any changes. ? Take wupb-kcs-hpmvvxg and prescription medicines only as told by [...] Reviewed: 11/10/2019 [employer] Patient Education ? 2019 [employer] [facility] Consultation Noteon 08-03-19 Consultation Note [id number] #1.00CD:127 [facility] Auth for Release of Medical Recordson 06-19-2022 Auth for Release of Medical Records [id number] #1.00CD:127 Normal [facility] CHEMISTRYOrdered By: SYSTEM SYSTEM on [...] 78 mm[Hg] Cesilia Jeter MD Work Phone: [facility] 05-28-2023 14:56-0500 Heart rate 112 /min Cesilia Jeter MD Work Phone: [facility] 05-28-2023 14:56-0500 Systolic blood pressure 106 mm[Hg] Cesilia Jeter MD Work Phone: [facility] 05-28-2023 13:59-0500 Body height 193 cm Cesilia Jeter MD Work Phone: [facility] 05-28-2023 13:59-0500 Body mass index (BMI) [Ratio] 30.07 kg/m2 Cesilia Jeter MD Work Phone: [facility] 05-28-2023 13:59-0500 Body weight 112.04 kg Cesilia Jeter MD Work Phone: [facility] 04-05-2023 13:57-0400 Body height 193.04 cm Bi Bell Work Phone: [facility] [address] DO Work Phone: 04-05-2023 13:57-0400 Body mass index (BMI) [Ratio] 28.85 kg/m2 Bi Bell Work Phone: [facility] 250 DO Work Phone: 04-05-2023 13:57-0400 Body surface area Derived from formula 2.38 m2 Bi Bell Work Phone: [facility] [address] DO Work Phone: 04-05-2023 13:57-0400 Body weight 107.5 kg Bi Bell Work Phone: [facility] [address] DO Work Phone: 04-05-2023 13:57-0400 Diastolic blood pressure 80 mm[Hg] Bi Bell Work Phone: [facility] [address] DO Work Phone: 04-05-2023 13:57-0400 Heart rate 111 /min Bi Bell Work Phone: [facility] [address] DO Work Phone: 04-05-2023 13:57-0400 Systolic blood pressure 130 mm[Hg] Bi Bell Work Phone: [facility] [address] DO Work Phone: 02-15-2023 11:49-0400 Diastolic blood pressure 89 mm[Hg] DO Bi Bell Work Phone: [facility] 02-15-2023 11:49-0400 Heart rate 106 /min DO Bi Bell Work Phone: [facility] 02-15-2023 11:49-0400 Systolic blood pressure 145 mm[Hg] DO Bi Bell Work Phone: [facility] 02-15-2023 11:39-0400 Body height 193.04 cm DO Bimaxi Bell Work Phone: [facility] 02-15-2023 11:39-0400 Body weight 113.39 kg DO Bi Bell Work Phone: [facility] 02-15-2023 10:00-0400 SaO2% (BldA) [Mass fraction] 99 % DO Bimaxi Bell Work Phone: [facility] 02-07-2023 21:26-0400 Body temperature 98.24 [degF] Ghulam Masterson [facility] 02-07-2023 21:26-0400 Diastolic blood pressure 78 mm[Hg] Ghulam Masterson [facility] 02-07-2023 21:26-0400 Heart rate 102 /min Ghulam Masterson [facility] 02-07-2023 21:26-0400 Respiratory rate 15 /min Ghulam Masterson [facility] 02-07-2023 21:26-0400 SaO2% (BldA) [Mass fraction] 98 % Ghulam Masterson [facility] 02-07-2023 21:26-0400 Systolic blood pressure 132 mm[Hg] Ghulam Masterson [facility] 12-14-2022 14:56-0400 Diastolic blood pressure 80 mm[Hg] Bi Bell Work Phone: [facility] [address] DO Work Phone: 12-14-2022 14:56-0400 Diastolic blood pressure 76 mm[Hg] Bi Bell Work Phone: [facility] [address] DO Work Phone: 12-14-2022 14:56-0400 Systolic blood pressure 130 mm[Hg] Bi Bell Work Phone: [facility] [address] DO Work Phone: 12-14-2022 14:56-0400 Systolic blood pressure 128 mm[Hg] Bi Bell Work Phone: [facility] [address] DO Work Phone: 12-14-2022 13:39-0400 Diastolic blood pressure 88 mm[Hg] Bi Bell Work Phone: [facility] 250 DO Work Phone: 12-14-2022 13:39-0400 Systolic blood pressure 120 mm[Hg] Bi Bell Work Phone: [facility] [address] DO Work Phone: 12-14-2022 13:37-0400 Body height 193.04 cm Bi Bell Work Phone: [facility] [address] DO Work Phone: 12-14-2022 13:37-0400 Body mass index (BMI) [Ratio] 30.07 kg/m2 Bi Bell Work Phone: [facility] 250 DO Work Phone: 12-14-2022 13:37-0400 Body surface area Derived from formula 2.42 m2 Bi Bell Work Phone: [facility] [address] DO Work Phone: 12-14-2022 13:37-0400 Body weight 112.04 kg Bi Hoyt Ray Work Phone: [facility] 250 DO Work Phone: 12-14-2022 13:37-0400 Diastolic blood pressure 88 mm[Hg] Bi Bell Work Phone: [facility] [address] DO Work Phone: 12-14-2022 13:37-0400 Heart rate 106 /min Bi Bell Work Phone: [facility] [address] DO Work Phone: 12-14-2022 13:37-0400 Systolic blood pressure 128 mm[Hg] Bi S Ray Work Phone: [facility] 250 DO Work Phone: 11-23-2022 13:49-0400 Blood Pressure Location Chapman SALAM [facility] 11-23-2022 13:49-0400 Diastolic blood pressure 91 mm[Hg] Chapman SALAM [facility] 11-23-2022 13:49-0400 Heart rate 111 /min Chapman SALAM [facility] 11-23-2022 13:49-0400 Respiratory rate 16 /min Chapman SALAM [facility] 11-23-2022 13:49-0400 SaO2% (BldA) [Mass fraction] 98 % Chapman SALAM [facility] 11-23-2022 13:49-0400 Systolic blood pressure 134 mm[Hg] Chapman SALAM [facility] 10-20-2022 10:08-0400 Blood Pressure Location Truptilanette Marques [facility] 10-20-2022 10:08-0400 Body temperature 97.34 [degF] Trupti Marques [facility] 10-20-2022 10:08-0400 Diastolic blood pressure 67 mm[Hg] Trupti Escamillametz [facility] 10-20-2022 10:08-0400 Heart rate 126 /min Trupti Marques [facility] 10-20-2022 10:08-0400 Systolic blood pressure 110 mm[Hg] Trupti Escamillametz [facility] 08-09-2022 20:00-0500 Diastolic blood pressure 73 mm[Hg] Jv Dacosta [facility] 08-09-2022 20:00-0500 Heart rate 92 /min Jv Dacosta [facility] 08-09-2022 20:00-0500 Mean blood pressure 98 mm[Hg] Jv Dacosta [facility] 08-09-2022 20:00-0500 Respiratory rate 18 /min Jv Dacosta [facility] 08-09-2022 20:00-0500 SaO2% (BldA) [Mass fraction] 98 % Jv Praneeth [facility] 08-09-2022 20:00-0500 Systolic blood pressure 149 mm[Hg] Jv Praneeth [facility] 08-09-2022 19:00-0500 Diastolic blood pressure 65 mm[Hg] Jv Praneteh [facility] 08-09-2022 19:00-0500 Heart rate 97 /min Jvaustin Dacosta [facility] 08-09-2022 19:00-0500 Mean blood pressure 90 mm[Hg] Jv Dacosta [facility] 08-09-2022 19:00-0500 SaO2% (BldA) [Mass fraction] 96 % Jv Dacosta [facility] 08-09-2022 19:00-0500 Systolic blood pressure 140 mm[Hg] Jv Praneeth [facility] 08-09-2022 18:00-0500 Diastolic blood pressure 74 mm[Hg] Jv Praneeth [facility] 08-09-2022 18:00-0500 Mean blood pressure 87 mm[Hg] Jv Praneeth [facility] 08-09-2022 18:00-0500 SaO2% (BldA) [Mass fraction] 95 % Jv Praneeth [facility] 08-09-2022 18:00-0500 Systolic blood pressure 112 mm[Hg] Jv Praneeth [facility] 08-09-2022 16:54-0500 Body temperature 97.52 [degF] Jv Dacosta [facility] 08-09-2022 16:54-0500 Heart rate 124 /min Jv Dacosta [facility] 08-08-2022 08:24-0500 Blood Pressure Location [facility]rupti [facility] 08-08-2022 08:24-0500 Body temperature 97.16 [degF] [facility]rupti [facility] 08-08-2022 08:24-0500 Diastolic blood pressure 82 mm[Hg] [facility]rupti [facility] 08-08-2022 08:24-0500 Heart rate 105 /min Trupti [facility] 08-08-2022 08:24-0500 Systolic blood pressure 129 mm[Hg] [facility]rupti [facility] 04-13-2022 16:08-0400 Blood Pressure Location Bi BELL [facility] 04-13-2022 16:08-0400 Body temperature 97.16 [degF] Bi BELL [facility] 04-13-2022 16:08-0400 Diastolic blood pressure 82 mm[Hg] Bi BELL [facility] 04-13-2022 16:08-0400 Heart rate 119 /min Bi BELL [facility] 04-13-2022 16:08-0400 SaO2% (BldA) [Mass fraction] 96 % Bi BELL [facility] 04-13-2022 16:08-0400 Systolic blood pressure 142 mm[Hg] Bi BELL [facility] 03-27-2022 11:19-0400 Blood Pressure Location Bi RAY [facility] 03-27-2022 11:19-0400 Body temperature 97.16 [degF] Bi RAY [facility] 03-27-2022 11:19-0400 Diastolic blood pressure 88 mm[Hg] Bi RAY [facility] 03-27-2022 11:19-0400 Heart rate 108 /min Bi BELL [facility] 03-27-2022 11:19-0400 SaO2% (BldA) [Mass fraction] 98 % Bi BELL [facility] 03-27-2022 11:19-0400 Systolic blood pressure 140 mm[Hg] Bi BELL [facility] 11-29-2021 15:45-0400 Blood Pressure Location Bi BELL [facility] 11-29-2021 15:45-0400 Diastolic blood pressure 82 mm[Hg] Bi BELL [facility] 11-29-2021 15:45-0400 Heart rate 110 /min Bi BELL [facility] 11-29-2021 15:45-0400 SaO2% (BldA) [Mass fraction] 98 % Bi BELL [facility] 11-29-2021 15:45-0400 Systolic blood pressure 124 mm[Hg] Bi BELL [facility] 10-06-2021 15:06-0400 Blood Pressure Location Bi RAY [facility] 10-06-2021 15:06-0400 Body temperature 97.16 [degF] Bi BELL [facility] 10-06-2021 15:06-0400 Diastolic blood pressure 92 mm[Hg] Bi BELL [facility] 10-06-2021 15:06-0400 Heart rate 113 /min Bi BELL [facility] 10-06-2021 15:06-0400 SaO2% (BldA) [Mass fraction] 97 % Bi BELL [facility] 10-06-2021 15:06-0400 Systolic blood pressure 148 mm[Hg] Bi BELL [facility] Encounters Encounter Date Encounter Type Care Provider Facility Start: 05-28-2023 End: 05-28-2023 ambulatory [facility] Ambulatory Start: 05-28-2023 End: 05-28-2023 Office outpatient visit 15 minutes Cesilia Jeter MD Work Phone: [facility] Comment on above: Tachycardia (Primary Dx); Atrial fibrillation, unspecified type (CMS/HCC); Heart murmur Start: 05-01-2023 End: 05-02-2023 ambulatory [facility] Start: 04-05-2023 Office outpatient vi sit 25 minutes Bi Bell Work Phone: [facility] 250 DO Work Phone: Start: 04-05-[address] Cesilia Vazquez ty:[id number] Start: 02-15-2023 Chart Update Bi yan Work Phone: [facility] 250 DO Work Phone: Start: 02-15-2023 ambulatory Minnie Hahn lity:[id number] Start: 02-15-2023 End: 02-15-2023 ambulatory Cesilia Jeter Facility:[facility] Start: 02-15-2023 End: 02-15-2023 ambulatory DO Bi Bell Work Phone: [facility] Work Phone: Start: 02-15-2023 End: 02-15-2023 Patient encounter procedure DO Bi Bell Work Phone: [facility]-Electrodiagnostic [facility] Work Phone: Start: 02-08-2023 Chart Update Bi yan Work Phone: [facility] DO Work Phone: Start: 02-07-2023 End: 02-08-2023 Emergency department patient visit Ghulam Masterson [facility] Start: 02-07-2023 End: 02-07-2023 Emergency department patient visit Ghulam Masterson [facility] Start: 02-05-[address] Bi Friedman Ray Facility:[id number] Start: 01-15-2023 End: 01-16-2023 ambulatory WENDI MENDOZA Facility[place] Start: 01-07-[address] Cesilia Vaqzuez ty:[id number] Start: 12-26-2022 End: 12-27-2022 ambulatory Bi BELL Facility:[facility] Start: 12-26-2022 Patient encounter procedure Bi Bell Work Phone: [facility] DO Work Phone: Start: 12-26-[address] Cesilia Vazquez ty: Start: 12-20-2022 End: 12-21-2022 ambulatory Bi BELL Facility[facility] Start: 12-20-2022 End: 12-20-2022 Patient encounter procedure Bi BELL [facility] Start: 12-14-2022 Office consultation new/estab patient 60 min Bi Bell Work Phone: [facility] 250 DO Work Phone: Start: 12-14-2022 Patient encounter procedure Bi Bell Work Phone: [facility] 250 DO Work Phone: Start: 12-14-[address] Cesilia Vazquez ty: Start: 12-06-2022 End: 12-07-2022 ambulatory Palmer Levi Facility[facility] Start: 11-29-2022 End: 11-30-2022 ambulatory Bi BELL Facility:[facility] Start: 11-23-2022 End: 11-24-2022 ambulatory [facility] Start: 11-23-2022 End: 11-23-2022 Patient encounter procedure Chapman DEREKAM [facility] Start: 11-17-2022 End: 11-18-2022 ambulatory Chapman SALAM Facility:[facility] Start: 11-01-2022 End: 11-02-2022 ambulatory XXXX NONE Facility:[facility] Start: 11-01-2022 End: 11-01-2022 Patient encounter procedure [facility] Start: 10-31-2022 ambulatory Winsome Davenport Facility: [facility] Start: 10-30-2022 Chart abstracting Mike mallory MD Work Phone: Hematology/Oncology Start: 10-20-2022 End: 10-21-2022 ambulatory Trupti Marques Facility:[facility] Start: 10-20-2022 End: 10-20-2022 Patient encounter procedure Trupti Marques [facility] Start: 09-14-2022 End: 09-15-2022 ambulatory XXXX NONE Facility:[facility] Start: 09-14-2022 End: 09-14-2022 Patient encounter procedure Adela MEZA [facility] Start: 09-05-2022 End: 09-06-2022 ambulatory Dixon Mcwilliams Facility:[facility] Start: 09-05-2022 End: 09-05-2022 Patient encounter procedure Dixon Mcwilliams [facility] Start: 09-05-[address] Cesilia Vazquez ty:[id number] Start: 08-21-2022 End: 08-22-2022 ambulatory Tarik Sheehan Facility:[facility] Start: 08-21-2022 End: 08-21-2022 Patient encounter procedure Tarik Sheehan [facility] Start: 08-15-2022 End: 08-16-2022 ambulatory Trupti Marques Facility[facility] Start: 08-15-2022 End: 08-15-2022 Patient encounter procedure Trupti Marques [facility] Start: 08-09-2022 End: 08-09-2022 Emergency department patient visit Jv Dacosta Facility[place] Start: 08-09-2022 End: 08-09-2022 Emergency department patient visit Jv Dacosta [facility] Start: 08-08-2022 End: 08-09-2022 [facility]ulatory [facility] Start: 08-08-2022 End: 08-08-2022 Patient encounter procedure Trupti Marques [facility] Start: 07-13-2022 End: 07-14-2022 ambulatory Bi BELL Facility: [place] Start: 05-08-2022 End: 05-17-2022 Pre-admission assessment Bi BELL [facility] Start: 04-13-2022 End: 04-13-2022 Patient encounter procedure Bi BELL [facility] Start: 03-27-2022 End: 03-27-2022 Patient encounter procedure Bi BELL [facility] Start: 03-03-2022 End: 03-03-2022 Patient encounter procedure Chapman SIDNEY [facility] Start: 03-03-2022 End: 03-03-2022 Lab Drop off Adela MEZA [facility] Start: 12-05-2021 End: 12-05-2021 Patient encounter procedure Gustavo Zepeda [facility] Start: 11-29-2021 End: 11-29-2021 Patient encounter procedure Bi BELL [facility] Start: 11-22-2021 End: 11-22-2021 Patient encounter procedure Bi BELL [facility] Start: 11-21-2021 End: 02-19-2022 Recurring Cruzito ALDANA [facility] Start: 11-21-2021 End: 02-19-2022 Special examination status Cruzito ALDANA [facility] Start: 10-06-2021 End: 10-06-2021 Patient encounter procedure Bi BELL [facility] [place] Procedures Date Procedure Procedure [...] 2) Zoste r Vaccines (1 of 2) [facility] Start: 09-15-2023 DTaP/Tdap/Td Vaccine s (8 - Td or Tdap) DTaP/Tdap/Td Vaccines (8 - Td or Tdap) [facility] Start: 03-16-2023 Influenza vaccination C [facility] Start: 02-22-2023 FUV, Provider: Cesilia Jeter, Status: Pen, Time: 10:15 AM FUV, Provider: Cesilia Jeter, Status: Pen, Time: 10:[address] [facility] 250 DO Work Phone: Start: 02-15-2023 SURGNON, Provider: Minnie Vásquez, Status: Pen, Time: 11:00 AM [facility], Provider: Minnie Vásquez, Status: Pen, Time: 11:00 AM -[facility] 250 DO Work Phone: Start: 02-05-2023 ECHO, Provider: NEISHA ACKERMAN [facility] ULTRASOUND 01,[id number], Status: Pen, Time: 2:30 PM ECHO, Provider: NERI [facility] ULTRASOUND 01,[id number], Status: Pen, Time: 2:30 PM -[facility] 250 DO Work Phone: Start: 12-26-2022 HOLTER 48, Provider: EDDI REBOLLEDO [employer]ISTER[employer]AND SURVEYOR 1,[id number], Status: Pen, Time: 1:00 PM HOLTER 48, Provider: EDDI REBOLLEDO [employer] SURVEYOR 1,[id number], Status: Pen, Time: 1:00 PM [facility] DO Work Phone: Start: 07-16-2022 [facility] Start: 09-30-2014 Urine microalbumin profile DTAP,TDAP,TD (1 - Tdap) [facility] Start: 09-30-2013 HEPATITIS C SCREENING HEPATITIS C [facility] Start: 09-30-2013 Hepatitis C screening Hepatitis C [facility] Start: 09-30-2013 HIV SCREENING HIV SCREENING [facility] Start: 11-16-1999 Varicella vaccination Varicell a Vaccines (1 of 2 - 2-dose childhood series) [facility] Start: 04-02-1996 COVID-19 VACCINE (#1) COVID-19 VACCI NE (#1) [facility] Start: 1995 HEPATITIS B (1 of 3 - 3-dose series) HEPATITIS B (1 of 3 - 3-dose series) [facility] Start: 1995 HIV screening HIV Screening [facility] Start: 1995 Lipid panel Lipid Panel [facility] Start: 1995 Yearly Adult Physical [facility] Immunization Date Immunization Notes Care Provider Francisco barney 09-14-2013 tetanus toxoid, redu ezio diphtheria toxoid, and acellular pertussis vaccine, adsorbed Cesilia Jeter MD Work Phone: [facility] Work Phone: 09-14-2013 tetanus toxoid, redu ezio diphtheria toxoid, and acellular pertussis vaccine, adsorbed Bi BELL [facility] Comment on above: Early/Late Reason: N ursing Judgment Early/Late Reason: N ursing Judgment 11-06-2008 meningococcal ACWY vaccine, unspecified formulation Trupti Marques [facility] 11-06-2008 meningococcal polysaccharide (groups A, C, Y and W-135) diphtheria toxoid conjugate vaccine (MCV4P) Bi Bell [facility] Work [facility]: 11-06-2008 tetanus toxoid, redu ezio diphtheria toxoid, and acellular pertussis vaccine, adsorbed Trupti Marques [facility] 04-23-2003 influenza virus vaccine, unspecified formulation Trupti Marques [facility] 04-23-2003 influenza, seasonal, injectable Bi Bell Work Phone[facility] DO Work Phone: 07-11-2002 influenza virus vaccine, unspecified formulation Trupti Marques [facility] 07-11-2002 influenza, seasonal, injectable Bi Bell Work Phone: [facility] 250 DO Work Phone: 06-04-2002 influenza virus vaccine, unspecified formulation Trupti Marques [facility] 06-04-2002 influenza, seasonal, injectable [facility] Work Phone: 10-19-1999 diphtheria, tetanus toxoids and acellular pertussis vaccine, unspecified formulation Bi Bell Work Phone: [facility] 10-19-1999 DTaP, unspecified formulation Trupti Shelli [facility] 10-19-1999 measles, mumps and rubella virus vaccine Trupti Marques [facility] 10-19-1999 poliovirus vaccine, unspecified formulation Bi Bell Work Phone: [facility] 250 DO Work Phone: 12-26-1996 diphtheria, tetanus toxoids and acellular pertussis vaccine, unspecified formulation Bi Bell Work Phone: [facility] Work Phone: 12-26-1996 DTaP, unspecified formulation Trupti Shelli [facility] 12-26-1996 haemophilus influenz ae type b vaccine, conjugate unspecified formulation Bi Bell [facility] Phone[facility] Work Phone: 12-26-1996 Hib, unspecified formulation Trupti Shelli [facility] 12-26-1996 measles, mumps and rubella virus vaccine Trupti Shelli [facility] 03-28-1996 DTP-Haemophilus influenzae type b conjugate vaccine Bi Bell Work Phone[facility] Work Phone: 03-28-1996 DTP-Hib Trupti Shelli [facility] 03-28-1996 hepatitis B vaccine, pediatric or pediatric/adolescent dosage Trupti Shelli [facility] 03-28-1996 trivalent poliovirus vaccine, live, oral Bi S Ray Work Phone: [facility] 250 DO Work Phone: 01-25-1996 DTP-Haemophilus influenzae type b conjugate vaccine Bi S Ray Work Phone: [facility] 250 DO Work Phone: 01-25-1996 DTP-Hib Trupti Shelli [facility] 01-25-1996 trivalent poliovirus vaccine, live, oral Bi S Ray Work Phone: [facility] 250 DO Work Phone: 1995 DTP-Haemophilus influenzae type b conjugate vaccine Bi S Ray Work Phone: [facility] 250 DO Work Phone: 1995 DTP-Hib Trupti Shelli [facility] 1995 hepatitis B vaccine, pediatric or pediatric/adolescent dosage Trupti Shelli [facility] 1995 trivalent poliovirus vaccine, live, oral Bi S Ray Work Phone: [facility] 250 DO Work Phone: 1995 hepatitis B vaccine, pediatric or pediatric/adolescent dosage Trupti Shelli [facility] NEGATED: Highlighted row has not occurred!08-08-2022 influenza virus vaccine, unspecified formulation Trupti Shelli [facility] NEGATED: Highlighted row has not occurred!02-16-2022 influenza virus vaccine, unspecified formulation Cruzito ALDANA [facility] NEGATED: Highlighted row has not occurred!08-10-2020 influenza virus vaccine, unspecified formulation Bi BELL [facility] [place] Payers Date Payer Category Payer Self-pay [id number] 2021 Medicaid [employer] [place] [id number] 2021-Present [id number] [place] [id number] Medicaid [id number] 2021 Unknown 2021 Unknown [id number] 1995 Unknown [id number] 2.16.840.1.959813.3.579.2.1068 1995 Unknown [id number] 2.16.840.1.220849.3.579.2.356 1995 Unknown [id number] 2.16.840.1.180381.3.579.2.356 1995 Unknown [id number] 2.16.840.1.495597.3.579.2.356 1995 Unknown [id number] 2.16.840.1.488789.3.579.2.356 1995 Unknown [id number] 2.16.840.1.503160.3.579.2.356 1995 Unknown [id number] 2.16.840.1.494069.3.579.2.356 1995 Unknown [id number] 2.16.840.1.384347.3.579.2.1246 1995 Unknown [id number] 2.16.840.1.641192.3.579.2.1244 1995 Unknown [id number] 2.16.840.1.126493.3.579.2. 1995 Unknown [id number] 2.16.840.1.381063.3.579.2. 1995 Unknown [id number] 2.16.840.1.552869.3.579.2 1995 Unknown [id number] 2.16.840.1.092443.3.579.2 1995 Unknown [id number] 2.16.840.1.691509.3.579.2 1995 Unknown [id number] 2.16.840.1.576165.3.579.2 1995 Unknown [id number] 2.16.840.1.799954.3.579.2 1995 Unknown [id number] 2.16.840.1.624953.3.579.2 1995 Unknown [id number] 2.16.840.1.507638.3.579.2. 1995 Unknown [id number] 2.16.840.1.035920.3.579.2 1995 Unknown [id number] 2.16.840.1.082251.3.579.2 1995 Unknown [id number] 2.16.840.1.799348.3.579.2 1995 Unknown [id number] 2.16.840.1.522025.3.579.2 1995 Unknown [id number] 2.16.840.1.697505.3.579.2 1995 Unknown [id number] 2.16.840.1.720527.3.579.2.727 1995 Unknown [id number] 2.16.840.1.321186.3.579.2.727 1995 Unknown [id number] 2.16.840.1.646920.3.579.2.727 1995 Unknown [id number] 2.16.840.1.890705.3.579.2.727 1995 Unknown [id number] 2.16.840.1.692951.3.579.2.727 1995 Unknown [id number] 2.16.840.1.818735.3.579.2.727 1995 Unknown [id number] 2.16.840.1.746091.3.579.2.727 Unknown [employer]/BS [id number] Unknown [employer] [id number] Unknown [id number] 2.16.840.1.810051.3.579.2.531 Social History Date Type Detail Facility Start: 09-04-2019 End: 05-25-2023 Tobacco smoking status Never smoked tobacco (finding) [facility] Tobacco smoking status [facility] Start: 05-28-2023 Sex Assigned At Male F [facility] smoking consumption unknown [facility] Start: 1995 Sex Assigned At Not on file [facility] Start: 05-28-2023 Occasional caffeine consumption Occasional caffeine consumption [facility] 250 DO Work Phone: Start: 1995 Sex Assigned At Male F [facility] Start: 05-25-2023 Tobacco use and exposure Smokeless tobacco non-user [facility] Work Phone: Start: 05-28-2023 Alcohol intake Current drinke r of alcohol (finding) [facility] Work Phone: Start: 05-25-2023 Alcohol Comment social [facility] Work Phone: Start: 05-18-2023 End: 05-28-2023 Exposure to SARS-CoV-2 (event) Not sure [facility] Functional Status Date Assessment Result Facility 02-07-2023 Functional Status N/A [facility] 11-23-2022 Functional Status N/A [facility] 10-20-2022 Functional Status N/A [facility] 08-09-2022 Functional Status N/A [facility] 08-08-2022 Functional Status N/A [facility] 04-13-2022 Functional Status N/A [facility] 03-27-2022 Functional Status N/A [facility] Clinical Notes 10-06-2021 to 05-28-2023 Cesilia Jeter [...] further questions arise, Sincerely, Cesilia Jeter MD [facility] documented in this encounter [facility] Work Phone: 05-28-2023 Instructions Sri Steward [...] up as needed. documented in this encounter [facility] Work Phone: 02-08-2023 Hospital Discharge instructions [...] or after getting dental care. Medicines Take xhto-exm-exzklgw and prescription medicines only as told by [...] pain may be mild or severe. Take fzqp-amp-fggtemp and prescription medicines only as told by [...] provider. Document Revised: 04/06/2021 Document Reviewed: 04/06/2021 [employer] Patient Education 2022 [employer] ([employer] Follow Up Care 02/07/2023 21:24:21 With:Bi BELL Address: [address] [place] [address] [place] [address]- [phone] Business (1) When:02/10/2023 21:58:50 Comments:Follow-up with your primary care provider in 3 to 5 days. If symptoms worsen, do not improve, or new symptoms arise please report back to emergency department for further evaluation. [facility] 12-14-2022 History of Present illness [...] pain8.History of migraine headaches9. History of bowel vzetmrhqzjwt50. Possible irritable bowel qtfdrisd82. Small intestinal bacterial ydcjpwgapp84. Idiopathic small fiber peripheral neuropathy.13. Low vitamin B12 and vitamin D levels on ylbfijjbzameuzj02. Echocardiogram January 2023-left atrium 3 cm LV end-systolic dimension 3.3 cm LV wall thickness 0.8 cm grossly normal valves normal RV size and systolic function RVSP could not be zfkofhgdiv19. 48-hour Holter monitor January 2023-predominant rhythm sinus minimum sinus rate 55 average sinus rate 94 maximum heart rate 154 bpm isolated ventricular premature beats and supraventricular premature beats no atrial fibrillation or malignant dysrhythmias, patient did not report any symptoms and did not report activity status. If tachycardia occurred with minimal activity or at rest inappropriate sinus tachycardia cannot be yqgqaqrj19. Tilt table testing February 2023-after sublingual nitroglycerin [...] situations that may precipitate presyncope or syncope -[facility] 250 DO Work Phone: 10-20-2022 Hospital [...] powder, vinegar, hot sauces, and barbecue sauce. ?[place] fruit juices and citrus fruits, such as oranges, mynor, and limes. ?Tomato-based foods, such as red sauce, chili, salsa, and pizza with red sauce. ?Fried and fatty foods, such as donuts, faroese fries, potato chips, and high-fat dressings. ?High-fat [...] to any changes in your symptoms. Take evja-ofm-sdudqkq and prescription medicines only as told by [...] you have new or worsening symptoms. Take tnxs-rqw-zejaggv and prescription medicines only as told by [...] 04/11/2006 Document Revised: 01/08/2019 Document Reviewed: 01/08/2019 [employer] Patient Education 2019 [employer] ([employer]). Follow Up Care 08/08/2022 09:22:14 With:Trupti Marques CNP Address: When:[address] [facility] 08-09-2022 Hospital Discharge [...] oral rehydration solution (ORS). This is an raji-axc-jerbato medicine that helps return your body to [...] drinks, sports drinks, and soda. Eat bland, wbqy-zj-ofcwge foods in small amounts as you are able. These foods include bananas, applesauce, rice, lean meats, toast, and crackers. Avoid alcohol. Avoid spicy or fatty foods. Medicines Take xpyx-pwp-ckcqyrb and prescription medicines only as told by your health care provider. If you were prescribed an antibiotic medicine, take it as told by your health care provider. Do not stop using the antibiotic even if you start to feel better. General instructions Wash your hands often using soap and water. If soap and water are not available, use a hand staff antisubmarine officer. 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 Contact a health care provider if your diarrhea gets worse or you have new symptoms. Get help right away if you have signs of dehydration. This information is not intended to replace advice given to you by your health care provider. Make sure you discuss any questions you have with your health care provider. Document Released: 06/22/2003 Document Revised: 11/18/2019 Document Reviewed: 12/06/2018 [employer] Patient Education 2020 [employer] ([employer] 08/09/2022 19:45:10 Nausea, Adult Nausea, Adult Nausea [...] water added (diluted fruit juice). Eat bland, wtaz-hi-tftukc foods in small amounts as you are able. These foods include bananas, applesauce, rice, lean meats, toast, and crackers. Avoid drinking fluids that contain a lot of sugar or caffeine, such as energy drinks, sports drinks, and soda. Avoid alcohol. Avoid spicy or fatty foods. General instructions Take tvwr-uol-slkbblr and prescription medicines only as told by your health care provider. Rest at home while you recover. Drink enough fluid to keep your urine pale yellow. Breathe slowly and deeply when you feel nauseous. Avoid smelling things that have strong odors. Wash your hands often using soap and water. If soap and water are not available, use hand staff antisubmarine officer. Make sure that all people in your [...] recommendations for eating and drinking and take kfts-wkb-czjxlhl and prescription medicines only as told by [...] 08/09/2005 Document Revised: 12/10/2018 Document Reviewed: 12/10/2018 [employer] Patient Education 2020 [employer] Follow Up Care 08/09/2022 16:52:07 With:Bi BELL Address: [address] [place], [place] [id number]- Business (1) When:08/12/2022 19:44:52 [facility] 08-08-2022 Hospital Discharge instructions Patient [...] Follow these instructions at home: Medicines Take odju-rql-jmwrmso and prescription medicines only as told by [...] Watch your condition for any changes. Take fkfg-fuj-kjqqbcz and prescription medicines only as told by [...] 04/11/2006 Document Revised: 11/10/2019 Document Reviewed: 11/10/2019 [employer] Patient Education 2019 [employer] ([employer] Follow Up Care 07/28/2022 15:35:46 With:Trupti Marques CNP Address: When:[address] [facility] 03-07-2022 Hospital Discharge instructions Follow Up Care 03/07/2022 09:02:10 With:Bi BELL DO, FAM Address: [address] [place] [address]- When: only if needed [facility] 10-06-2021 Evaluation + Plan note Future Scheduled TestsLyme Ab/wb Reflex 10/06/21 [facility] Evaluation + Plan note Future Appointments Appointment Date:11/29/2021 03:40:00 PM Scheduled Provider:Bi BELL DO Location:[facility] Appointment Type: Open [facility] Evaluation + Plan note Future Appointments Appointment Date:12/05/2021 04:00:00 PM Scheduled Provider: [facility] Spine (FT) Appointment Date:01/10/2022 03:40:00 PM Scheduled Provider:Bi BELL DO Location:[facility] Appointment Type: Open Future Scheduled TestsMRI Spine Lumbar w/o Contrast 12/05/21 [facility] Evaluation + Plan note Future Appointments Appointment Date:01/10/2022 03:40:00 PM Scheduled Provider:Bi BELL DO Location:[facility] Appointment Type: Open Appointment Date:01/26/2022 02:45:00 PM Scheduled Provider:Adela MEZA MD Location[facility] Appointment Type:BADH New Patient [facility] Evaluation + Plan note Future Appointments Appointment Date:03/22/2022 02:00:00 PM Scheduled Provider: Location:[facility] Appointment Type:Surgery PAT COVID Testing Appointment Date:03/29/2022 02:00:00 PM Scheduled Provider: Location:[facility] Appointment Type:Surgery FT Appointment Date:04/13/2022 04:20:00 PM Scheduled Provider:Bi BELL DO Location:[facility] Appointment Type: Open Future Scheduled TestsPancreatic Elastase, Fecal 02/16/22Fecal WBC Lactoferrin 02/16/22O & P Exam, Routine 02/16/22Celiac Disease Comprehensive 02/16/22Enteric Panel by PCR 02/16/22Calcium Level Total 02/16/22CBC w/ Indices 02/16/22Comprehensive Metabolic Panel 02/16/22Thyroid Stimulating Hormone 02/16/22 [facility] Evaluation + Plan note Future Appointments Appointment Date:03/22/2022 02:00:00 PM Scheduled Provider: Location:[facility] Appointment Type:Surgery PAT COVID Testing Appointment Date:03/29/2022 02:00:00 PM Scheduled Provider: Location:[facility] Appointment Type:Surgery FT Appointment Date:04/13/2022 04:20:00 PM Scheduled Provider:Bi BELL DO Location:[facility] Appointment Type: Open Diagnostic Tests PendingCeliac Disease Comprehensive 03/03/22 [facility] Evaluation + Plan note Future Appointments Appointment Date:03/22/2022 02:00:00 PM Scheduled Provider: Location:[facility] Appointment Type:Surgery PAT COVID Testing Appointment Date:03/29/2022 02:00:00 PM Scheduled Provider: Location:[facility] Appointment Type:Surgery FT Appointment Date:04/13/2022 04:20:00 PM Scheduled Provider:Bi BELL DO Location:[facility] Appointment Type: Open Diagnostic Tests PendingO & P Exam, Routine 03/03/22Enteric Panel by PCR 03/03/22Pancreatic Elastase, Fecal 03/03/22 [facility] Evaluation + Plan note Future Appointments Appointment Date:03/29/2022 01:50:00 PM Scheduled Provider: Location:[facility] Appointment Type:Surgery FT Appointment Date:04/13/2022 04:20:00 PM Scheduled Provider:Bi BELL DO Location:[facility] Appointment Type:[facility] Evaluation + Plan note Future Appointments Appointment Date:05/09/2022 08:20:00 AM Scheduled Provider:Trupti Marques CNP Location[facility] Appointment Type:BADH Follow Up Appointment Date:07/13/2022 09:00:00 AM Scheduled Provider:Bi BELL DO Location:[facility] Appointment Type:[facility] Evaluation + Plan note Future Appointments Appointment Date:07/13/2022 09:00:00 AM Scheduled Provider:Bi BELL DO Location:[facility] Appointment Type:[facility] Evaluation + Plan note Future Appointments Appointment Date:08/15/2022 09:30:00 AM Scheduled Provider: [facility] App[facility] Type:US Abdominal/Pelvis (FT) Appointment Date:08/31/2022 09:00:00 AM Scheduled Provider: Location:[facility] Appointment Type:Surgery FT Appointment Date:10/20/2022 10:20:00 AM Scheduled Provider:Trupti Marques CNP Location[facility] Appointment Type:[facility] Follow Up Future Scheduled TestsUS Abdomen Complete 08/15/22 [facility] Evaluation + Plan note Future Appointments Appointment Date:08/21/2022 12:00:00 PM Scheduled Provider: Location:.MRI Appointment Type:MRI Knee/Tibia/Fibula (FT) Appointment Date:08/31/2022 09:00:00 AM Scheduled Provider: Location:[facility] Appointment Type:Surgery FT Appointment Date:10/20/2022 10:20:00 AM Scheduled Provider:Trupti Marques CNP Location[facility] Appointment Type:[facility] Follow Up Future Scheduled TestsMRI Knee w/o Contrast Right 08/21/22 [facility] Evaluation + Plan note Future Appointments Appointment Date:08/31/2022 09:00:00 AM Scheduled Provider: Location:[facility] Appointment Type:Surgery FT Appointment Date:10/20/2022 10:20:00 AM Scheduled Provider:Trupti Marques CNP Location:[facility] Appointment Type:[facility] Follow Up [facility] Evaluation + Plan note Future Appointments Appointment Date:09/14/2022 08:00:00 AM Scheduled Provider: Location:[facility] Appointment Type:Surgery FT Appointment Date:10/20/2022 10:20:00 AM Scheduled Provider:Trupti Marques CNP [facility] Appointment Type:[facility] Follow Up [facility] Evaluation + Plan note Future Appointments Appointment Date:10/20/2022 10:20:00 AM Scheduled Provider:Trupti Marques CNP Location:[facility] Appointment Type:[facility] Follow Up [facility] Evaluation + Plan note Future Appointments Appointment Date:11/01/2022 09:30:00 AM Scheduled Provider: Location:[facility] Appointment Type:Surgery FT Appointment Date:11/17/2022 10:20:00 AM Scheduled Provider:Trupti Marques CNP Location[facility] Appointment Type:BAD Follow Up [facility] Evaluation + Plan note Future Appointments Appointment Date:12/21/2022 02:30:00 PM Scheduled Provider:Adela MEZA MD Location:[facility] Appointment Type:[facility] Follow Up Future Scheduled TestsCBC w/ Auto Diff 11/16/22 [facility] Evaluation + Plan note Future Appointments Appointment Date:11/29/2022 02:00:00 PM Scheduled Provider:Bi EBLL DO Location:[facility] Appointment Type: Open Appointment Date:12/06/2022 08:15:00 PM Scheduled Provider: Location:.SLEEP LAB_ Appointment Type: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 Evaluation + Plan note Future Appointments Appointment Date:12/26/2022 04:00:00 PM Scheduled Provider:Bi BELL DO Location:[facility] Appointment Type: Open [facility] Evaluation note No assessment inform ation available [facility] Work Phone: Evaluation note Diagnosis Tachycardia- Primary Unspecified tachycardia Atrial fibrillation, unspecified type (CMS/HCC) Heart murmur Undiagnosed cardiac murmurs documented in this encounter [facility] Work Phone: Hospital course Narrative No data available for this section [facility] Hospital Discharge instructions No data available for this section [facility] Progress note No data available for this section [facility] Family History No Family History [...] Care Team (unrecognized sect ion and content) Cyber Special Agent Relationship Specialty Start Date End Date Trupti Marques, [address] [place] [address] PCP - General Family Medicine 10/25/22 Team Status: Active Member Role Status Dates Bi Bell , Primary Care Provider Active Team Status: Inactive Member Role Status Dates Bi Bell DO Primary Care Provider Active Cesilia Jeter MD Attending Provider Active Minnie Vásquez MD Referring Provider Active Cyber Special Agent Relationship Specialty Start Date End Date Bi Bell DO [address] [place] [id number] PCP - General 12/14/22 Source Comments (unrecognize d section and content) In the event this informatio n is protected by the Federal Confidentiality of Alcohol and Drug Abuse Patient Records regulations: The Federal rules restrict any use of the information to criminally investigate or prosecute any alcohol or drug abuse patient.[facility] Reason for Visit (unrecogniz ed section and content) Reason Comments Follow-up Stress test results Specialty Diagnoses / Procedures Referred By Contac t Referred To Contact Cardiology Diagnoses Atrial fibrillation, unspecified type (CMS/HCC) Heart murmur Procedures Follow Up In Cardiology Cesilia Jeter MD [address] [facility] [address] [facility] [address] [place] [address] Orin Barragan, TRANSFUSION AIDE-INFUSION THERAPY NURSE [address] [facility] [address] [place] [address] Referral ID Status Reason Start Date Expiration Date V isits Requested Visits Authorized [id number] Authorized 05/09/2023 05/08/2024 1 1 (unrecognized sect ion and content) No Status Records FoundNo Status Records FoundNo Status Records FoundNo Status Records FoundNo Status Records FoundNo Status Records FoundNo Status Records Found INFORMATION SOURCE (unrecogn ized section and content) DATE CREATED AUTHOR 02/05/2023 [facility] DATE CREATED AUTHOR AUTHOR'S ORGANIZ ATION 02/26/2023 [facility] DATE CREATED AUTHOR AUTHOR'S ORGANIZ ATION 04/07/2023 [facility] DATE CREATED AUTHOR AUTHOR'S ORGANIZ ATION 04/07/2023 [facility] DATE CREATED AUTHOR AUTHOR'S ORGANIZ ATION 05/06/2023 [facility] DATE CREATED AUTHOR AUTHOR'S ORGANIZ ATION 05/30/2023 [facility] DATE CREATED AUTHOR AUTHOR'S ORGANIZ ATION 06/12/2023 [facility] Goals (unrecognized section and content) Goals [...] BE BASED ON THE PRIMARY CLINICAL RECORDS. [employer] provides no warranty or guarantee of the accuracy or completeness of information in this document.
[2023-08-27 07:39] VITALS: BP 122/80; PULSE 110; RESP 16; TEMP 36.9; O2SAT 98
[2023-08-27] MEDS: BUPIVACAINE HCL 0.25% PF 25 MG/10 ML VIAL INJ (08:34)
[2023-08-27] MEDS: IOHEXOL 240 MG/ML - 10 ML VIAL INJ (08:34)
[2023-08-27] MEDS: TRIAMCINOLONE ACETONIDE 40 MG/ML VIAL INJ (08:34)
[2023-08-27] MEDS: 0.9 % SODIUM CHLORIDE 10 ML INJ (08:34)
[2023-08-27] MEDS: LIDOCAINE HCL 2% PF 100 MG/5 ML VIAL 2 ML INJ (08:34)
[2023-08-27 08:36] VITALS: BP 147/67; BP 148/70; PULSE 100; PULSE 114; RESP 18; O2SAT 97; O2SAT 99
--- NOTE | 2023-08-27 08:38 | W.PM.PROCNOT ---
Date of procedure: 08/27/23 Pre-op diagnosis: Lumbar stenosis with neurogenic claudication Post-op diagnosis: same as pre-op Procedure: Procedure: Bilateral L4-5 transforaminal epidural steroid injection Medications: Bupivacaine 0.25% 2cc, lidocaine 2% 1cc, kenalog 80mg The patient was seen and examined in the preoperative holding area.? Informed consent was obtained and placed on the chart.? Patient was brought to the medical procedure unit and placed in the prone position where a timeout was completed verifying the correct patient, procedure site, position, and planned special equipment using sterile aseptic technique.? Under direct fluoroscopic visualization a 25-gauge Quincke tipped spinal needle was advanced at level left L4-5 to the designated neural foramen where contrast dye was injected to show adequate spread.? There was no evidence of vascular or adverse uptake.? Epidural spread was appreciated.? The above-mentioned injectate was then placed in a 1.5 mL aliquot preceded by negative aspiration.? The needle was removed. The same procedure, at the same level, was completed on the opposite side. ? Patient was taken to the postprocedural recovery area and monitored for an appropriate length of time before found suitable for discharge in the accompaniment of a responsible adult. Anesthesia: Local Surgeon: Ray Rasmussen Pathology: none sent Condition: stable Disposition: no change
== END 2023-08-27 08:41 | disposition home or self-care (01) ==
PROVIDERS: PCP Family Medicine; Visit Provider Anesthesiology
DX: M48.062 Spinal stenosis, lumbar region with neurogenic claudication (principal)
CPT/HCPCS: 64483; J0665; J3301; Q9966

== ENCOUNTER 2023-09-17 07:45 | Day surgery (SDC) | payer OTHER, SELFPAY ==
--- OUTSIDE RECORDS SUMMARY | 2023-09-17 07:48 | XMS_ITS | CCD ---
Author Name Unknown Address [address] [place] [address] Organization [facility] Care Team Providers Care 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 Name Role Phone Bi BELL Primary Care Physician Trupti Marques CNP Primary Care Provider Bi Bell Unavailable Unavailable Unavailable Dr. Bi Bell Primary Care CESILIA Keller Referring Unavailable CESILIA JETER Attending Unavailable Bi BELL Primary Care Physician [phone] DO Bi Bell Primary Care Provider MD Cesilia Jeter Attending Provider [phone] MD Minnie Vásquez Referring Provider Cesilia Jeter [...] Navarrete Referring Unavailable Tarik Sheehan Admitting Unavailable Converse, Tarik Martin Attending Unavailable Converse, Tarik Martin Referring Unavailable Shelli, Trupti A Referring Unavailable Shelli, Trupti A Admitting Unavailable Shelli, Trupti Navarrete Attending Unavailable SALAM, Adela Admitting Unavailable SALAM, Adela Attending Unavailable CARIDADMARIELOS J Admitting Unavailable CARIDAD, MARIELOS J Attending Unavailable Allergies Allergy Classification Reported Allergen(s) Allergy Type Date of Onset Reaction(s) Facility (20 sources) Cyproheptadine; Translations: [cyproheptadine ] Drug Allergy 4 Drowsy (finding), Drowsiness, Other, Unknown [facility] (8 sources) Cephalexin; Translations: [Cephalexin TABS] Drug Allergy 3 Unknown [facility] (2 sources) Cephalexin; Translations: [CEPHALEXIN] Drug Allergy 3 [facility] Repository (1 source) ALLERGIES NOT ON FILE; Translations: [ALLERGIES NOT ON FILE] Propensity to adverse reactions (disorder) [facility] [place] Repository (2 sources) Acebutolol; Translations: [ACEBUTOLOL] Drug Allergy 3 Cough [facility] 3 Repository Medications Current Medications Medication [...] for 7 day(s), 14 tab(s), Refill(s) 0, [facility], 193, cm, 02/07/23 21:30:00 EDT, Height/Length [...] day(s), # 20 tab(s), Refills(s) 0, Pharmacy: [facility], 193, cm, 11/23/22 13:52:00 EDT, Height/Length Dosing, 109, kg, 11/23/22 13:52:00 EDT, Weight Dosing Start Date: 11/23/22 Stop Date: 12/03/22 Status: Ordered clobetasol propionate 0.5 mg/ml topical foam (19 sources) Corticosteroid Start: 01-05-2023 Olux 0.05% topical foam 1 anum, Topical, BID, 100 gram, Refill(s) 1, [facility] #16, 193, cm, 12/26/22 16:03:00 EDT, Height/Length Dosing, 112.1, kg, 12/26/22 16:03:00 EDT, Weight Dosing Start Date: 01/05/23 Status: Ordered Start: 10-12-2022 Olux 0.05% top ical foam 1 anum, Topical, BID, 100 gram, Refill(s) 1, [facility] #16, 193, cm, 08/09/22 16:56:00 EST, Height/Length Dosing, 115.2, kg, 08/09/22 16:56:00 EST, Weight Dosing Start Date: 10/12/22 Status: Ordered Start: 06-19-2022 Olux 0.05% top ical foam 1 anum, Topical, BID, 100 gram, Refill(s) 1, [facility] #16, 193, cm, 04/13/22 16:11:00 EDT, Height/Length Dosing, 118, kg, 04/13/22 16:11:00 EDT, Weight Dosing Start Date: 06/19/22 Status: Ordered Start: 11-25-2021 Olux 0.05% top ical foam 1 anum, Topical, BID, 100 gram, Refill(s) 1, [facility] #16, 193, cm, 10/06/21 15:13:00 EDT, [...] day(s), # 28 tab(s), Refills(s) 0, Pharmacy: [facility], 193, cm, 08/09/22 16:56:00 EST, Height/Length [...] Daily, # 90 cap(s), Refills(s) 1, Pharmacy: [facility], 193, cm, 11/29/22 13:54:00 EDT, Height/Length [...] Start: 03-27-2022 take 1 capsule by [facility] once daily DULoxetine 30 mg Cap-EC TAKE [...] itching, # 40 tab(s), Refills(s) 0, Pharmacy: [facility] 193, cm, 01/10/22 15:41:00 EDT, Height/Length Dosing, 115.8, kg, 01/10/22 15:41:00 EDT, Weight Dosing Start Date: 01/10/22 Status: Ordered LDN 1.5 mg (1 source) Start: 11-30-19 LDN 1.5 mg LDN 1.5 mg, See Instructions, 30 cap(s), 0, 1 cap po at HS, PopJam, Compound, 193, cm, 11/29/22 13:54:00 EDT, Height/Length Dosing, 111.5, kg, 11/29/22 13:54:00 EDT, Weight Dosing Start Date: 11/29/22 Status: Ordered LDN 3 mg (1 source) Start: 12-27-19 LDN 3 mg LDN 3 mg, See Instructions, 30 cap(s), 2, 1 cap po at HS, PopJam, Compound, 193, cm, 12/26/22 16:03:00 EDT, Height/Length [...] day(s), # 30 tab(s), Refills(s) 2, Pharmacy: [facility], 193, cm, 11/29/22 13:54:00 EDT, Height/Length [...] qAM, # 30 tab(s), Refills(s) 2, Pharmacy: [facility], 193, cm, 12/26/22 16:03:00 EDT, Height/Length Dosing, 112.1, kg, 12/26/22 16:03:00 EDT, Weight Dosing Start Date: 12/26/22 Status: Ordered Comment on above: Take 200 mg by mouth once daily. Olux 0.05% topical foam (4 sources) Start: 11-26-19 Olux 0.05% topical foam 1 anum, Topical, BID, 100 gram, Refill(s) 1, [facility], 193, cm, 10/06/21 15:13:00 EDT, Height/Length Dosing, 111.7, kg, 10/06/21 15:13:00 EDT, Weight Dosing Start Date: 11/25/21 Status: Ordered Start: 08-16-2021 Olux 0.05% top ical foam 1 anum, Topical, BID, 100 gram, Refill(s) 0, [facility], 193, cm, 06/02/21 16:01:00 EST, Height/Length Dosing, 105.4, kg, 06/02/21 16:01:00 EST, Weight Dosing Start Date: 08/16/21 Status: Ordered ondansetron 4 mg disintegrating oral tablet (15 sources) Serotonin-3 Receptor Antagonist Start: 08-09-2022 End: 05-28-2023 take 1 tablet by mouth every six hours ondansetron 4 mg Dis Tab 4 mg = 1 tab(s), Oral, q6hr, # 12 tab(s), Refills(s) 0, Pharmacy: [facility], 193, cm, 08/09/22 16:56:00 EST, Height/Length [...] Daily, # 90 tab(s), Refills(s) 1, Pharmacy: [facility], 193, cm, 04/13/22 16:11:00 EDT, Height/Length Dosing, 118, kg, 04/13/22 16:11:00 EDT, Weight Dosing Start Date: 05/26/22 Status: Ordered Start: 01-13-2022 End: 05-28-2023 take 1 tablet by mouth once daily pantoprazole 40 mg Oral EC Tab 40 mg = 1 tab(s), Oral, Daily, # 90 tab(s), Refills(s) 1, Pharmacy: [facility], 193, cm, 01/10/22 15:41:00 EDT, Height/Length Dosing, 115.8, kg, 01/10/22 15:41:00 EDT, Weight Dosing Start Date: 01/13/22 Status: Ordered Start: 06-02-2021 take 1 tablet by [facility] once daily pantoprazole 40 mg Oral EC Tab 40 mg = 1 tab(s), Oral, Daily, # 90 tab(s), Refills(s) 1, Pharmacy: [facility], 193, cm, 06/02/21 16:01:00 EST, Height/Length [...] days., # 45 tab(s), Refills(s) 0, Pharmacy: [facility], 193, cm, 03/27/22 11:22:00 EDT, Height/Lengt... Start Date: 03/27/22 Status: Ordered Start: 01-10-2022 predniSONE 10 mg Tab 0 = 1 -, Oral, As Directed, Take 5 tabs by mouth daily x3 days, 4 daily x3 days, 3 daily x3 days, 2 daily x3 days, then 1 tab daily x3 days., # 45 tab(s), Refills(s) 0, Pharmacy: [facility], 193, cm, 01/10/22 15:41:00 EDT, Height/Lengt... [...] Bedtime, # 30 tab(s), Refills(s) 0, Pharmacy: [facility], 193, cm, 11/29/21 15:48:00 EDT, Height/Length [...] on above: Take 1,000 mcg by [facility] once daily. Vitamin D (13 sources) Start: [...] tab, Oral, BID, 60 tab(s), 1, [facility], Supply, 193, cm, 11/09/20 16:16:00 EDT, [...] Start: 09-01-2021 take 1 capsule by [facility] twice daily pregabalin 100 mg Cap TAKE [...] 06-11-2023 Auth for Release of Medical Records [id number]# 1.00TIFF Normal [facility] STRESS TEST ONLYon 3 STRESS TEST ONLY [facility] [address], [place] [address] Exercise Stress Test Patient Name: CINDY SYLVESTER Ordering Provider: [id number] CESILIA JETER Study Date: 05/01/2023 Reading Physician: [id number] Dianna Holloway MD, [facility] MRN/PID: [id number] Supervising Physician: [id number] Rex Gaffney DO Fellow: Date of /Age: 3 1995 / years Fellow: Gender: M Nurse: Kurt Urias RN Admission Status: Case Finisher: ANITA Height: 193.04 cm Technologist: Weight: 107.50 kg Additional Staff: BSA: 2.38 m2 BMI: 28.85 kg/m2 Patient Location: Study Type: STRESS TEST ONLY Diagnosis/ICD: Palpitations-R00.2; Syncope and collapse-R55 Indication: Hypertension CPT Codes: Stress Test Interpretation-41846 ; Stress Test Supervision-[id number] Falls Risk: Low: Patient has low risk [...] Patient achieved Wright treadmill score of 5+. [id number] Dianna Holloway MD, FACC Electronically signed on 05/01/2023 at 3:56:52 PM Final [facility] Consultation Noteon 04-24-20 23 Consultation Note [id number] #1.00TIFF [facility] Office Visit (Cardiology)on 04-05-2023 Follow-up visit Diagnoses/Problems [...] Weight Tips; Status:Complete - Retrospective Authorization; Done: [id number] Some eating tips that can help you lose weight.; Status:Complete - Retrospective Authorization; Done: [id number] Palpitations, Syncope and collapse Cardiac Stress Test; [...] MG O (more content not included)... Normal [facility] Tobacco Screening.on 023 Tobacco use status [facility]PHS b) No -[facility] [address] DO Work Phone: [place] tilt table teston 023 [place] tilt table test [facility] Main [place] [address] [place] [address] Cardiology Report Signed Patient: Cindy Sylvester MR#: [id number] : 1995 Acct:[id number] Age/Sex: 27 / M ADM Date: 02/15/23 Loc: Room: Type: [facility] Attending Dr: Cesilia Jeter MD Copies to: [...] continue his long-term followup with his primary biogeographer. Transcribed By: MARLEY 02/15/231702 Dictated By: Minnie Vásquez MD 02/15/23 1115 Signed By: 02/15/23 1754 [facility] No Panel Informationon 02-15 [facility] [address] DO Work Phone: Consultation Noteon 02-14-20 Consultation Note [id number] #1.00CD:127 [facility] ED Note-Physicianon 02-10-20 ED Note-Physician Basic Information [...] and Complexity of Problems Differential Diagnosis: [] [facility] Data External documents reviewed: [] [...] for 7 day(s), 14 tab(s), Refill(s) 0, [facility], 193, cm, 02/07/23 21:30:00 EDT, Height/Length [...] BELL In 3 days 02/10/2023 EDT [address] [facility] [place] [address] [phone] Business (1) Additional Instructions: Follow-up with your primary care provider in 3 to 5 days. If symptoms worsen, do not improve, or new symptoms arise please report back (more content not included)... Normal [facility] Comment on above: Result Comment: Elec tronically Signed By: Inocencio Yousif PA-C\.br\Date and Time Signed: 02/07/23 23:22 EDT\.br\Electronically Co-Signed By: Ghulam Masterson MD\.br\Date and Time Co-Signed: 02/08/23 23:11 EDT Auth for Release of Medical Recordson 02-08-2023 Auth for Release of Medical Records [id number] #1.00CD:127 [facility] Discharge Instructionson Discharge Instructions [id number] #1.00CD:127 [facility] ED Clinical Summaryon 2022 ED Clinical Summary [place] [address] ED Clinical Summary Person Information Name: TIGRE, CINDY Martin Nayla/[facility] Age: 27 Years : 1995 Sex: Male Language: Bhutanese PCP: Bi BELL DO Marital Status: Single [...] 02/07/2023 22:12:55 02/07/2023 22:12:55 02/07/2023 22:12:55 ADDRESS: [address] [place] [address] [place] [phone] PHYS DOC NOTES: MEDICAL INFORMATION: Prescriptions Given: New Medications [facility], [address], [place] [id number], [phone] amoxicillin-clavulan ate (Augmentin 875 mg-125 mg Tab) [...] Follow up: With: Address: When: Bi BELL [address] [facility], [facility] [place] [phone] Business (1) In 3 days 02/10/2023 Comments: Follow-up with your primary care provider in 3 to 5 days. If symptoms worsen, do not improve, or new symptoms arise please report back to emergency department for further evaluation. DIAGNOSIS: Pain, dental Normal [facility] ED Patient Education Noteon 02-08-2023 [...] after getting dental care. Medicines ? Take hsbm-ime-lmzoavk and prescription medicines only as told by [...] may be mild or severe. ? Take kemf-ybo-herpuji and prescription medicines only as told by [...] Reviewed: 04/06/2021 Elsevier Patient Education ? 2022 [employer] Normal [facility] ED Patient Summaryon 023 ED Patient Summary [address] [address] Patient Discharge Instructions Person Information Name: CINDY SYLVESTER Age: 27 Years Arrival Date: 02/07/2023 21:23:01 Discharge Diagnosis: Pain, dental Primary Care Physician: Bi BELL DO Provider Information Primary Provider: [facility] Nurse:None The exam and treatment you received in the Emergency Department were for an urgent problem and are not intended as complete care. It is important that you follow up with a doctor, nurse practitioner, or physician?s surgeon assistant for ongoing care. If your symptoms [...] Instructions: With: Address: When: Bi BELL [address] [facility], [facility] [place] [phone] Business (1) In 3 days 02/10/2023 Comments: [...] opioids can be used to help relieve xsytxswn-oj-lsussc pain and are often prescribed following a [...] believe you m (more content not included)... [facility] Consent for Treatmenton 01-14 Consent for Treatment [id number] #1.00CD:127 [facility] Physician Referralon 023 Physician Referral [id number] #1.00CD:127 Normal [facility] Physician Referralon 023 Physician Referral [id number] #1.00CD:127 Normal [facility] CBC w/Indiceson 01-15-2023 Erythrocyte distribution width (RBC) [Ratio] 12.7 % Normal 10.9-14.2 [facility] Comment on above: Performed By: #### 2 176280, 6977139, 1489284, 19796181, 8996497 #### [facility] [address] [place] [address] Hematocrit (Bld) [Volume fraction] 45.0 % Normal 37.7-49.0 [facility] Comment on above: Performed By: #### 2 244923, 1157671, 8807642, 17464365, 6779892 #### [facility] [address] [place] [address] Hemoglobin (Bld) [Mass/Vol] 15.9 g/dL Normal 13.5-17.5 [facility] Comment on above: Performed By: #### 2 466158, 1104632, 2093803, 80121352, 1210138 #### [facility] [address] [place] [address] MCH (RBC) [Entitic mass] 30.6 pg Normal 27.0-34.0 [facility] Comment on above: Performed By: #### 2 563830, 3395400, 7399449, 07019088, 4137343 #### [facility] [address] [place] [address] MCHC (RBC) [Mass/Vol] 35.2 g/dL Normal 31.4-36.0 [facility] Comment on above: Performed By: #### 2 473024, 2110292, 2188367, 22830914, 7758551 #### [facility] [address] [place] [address] MCV (RBC) [Entitic vol] 87.0 fL Normal 80.0-100.0 [facility] Comment on above: Performed By: #### 2 867635, 1994694, 3336825, 12270690, 2771901 #### [facility] [address] [place] [address] Platelet mean volume (Bld) [Entitic vol] 7.5 fL Normal 6.4-10.8 [facility] Comment on above: Performed By: #### 2 586755, 0577525, 5804447, 83597655, 1859347 #### [facility] [address] [place] [address] Platelets (Bld) [#/Vol] 299.0 E9/L Normal 150.0-500.0 [facility] Comment on above: Performed By: #### 2 459768, 3148407, 5903801, 31621099, 0591486 #### [facility] [address] [place], [place] [address] RBC (Bld) [#/Vol] 5.2 E12/L Normal 4.3-5.9 [facility] Comment on above: Performed By: #### 2 404418, 7093771, 1879709, 18706461, 3854978 #### [facility] [address] [place] [address] WBC corrected for nucl RBC Auto (Bld) [#/Vol] 6.2 E9/L Normal 4.0-11.0 [facility] Comment on above: Performed By: #### 2 751489, 4208561, 5030590, 19535496, 2242471 #### [facility] [address] [place] [address] CMPon 01-15-2023 Albumin [Mass/Vol] 4.6 g/dL Normal 3.3-5.0 [facility] Comment on above: Performed By: #### 2 884527, 8541991, 3643333, 99128515, 9252040 #### [facility] [address] [place] [address] Albumin/Globulin (S) [Mass conc ratio] 1.6 Normal 1.1-2.2 [facility] Comment on above: Performed By: #### 2 196315, 7090867, 9463072, 92976067, 2776605 #### [facility] [address] [place] [address] ALP [Catalytic activity/Vol] 97 Int._Unit/L Normal 21-98 [facility] Comment on above: Performed By: #### 2 319026, 7419813, 6477763, 81769587, 1280264 #### [facility] [address] [place] [address] ALT No additional P-5'-P [Catalytic activity/Vol] 27 Int._Unit/L Normal 6-46 [facility] Comment on above: Performed By: #### 2 769747, 7337103, 9649237, 04679920, 4367291 #### [facility] [address] [place] [address] Anion gap [Moles/Vol] 13 mmol/L Normal 6-16 [facility] Comment on above: Performed By: #### 2 904339, 7706126, 1847029, 56889939, 3553815 #### [facility] [address] [place] [address] AST [Catalytic activity/Vol] 21 Int._Unit/L Normal 5-43 [facility] Comment on above: Performed By: #### 2 638849, 4268243, 1326028, 23645374, 7358846 #### [facility] [address] [place] [address] Bilirubin [Mass/Vol] 0.7 mg/dL Normal 0.0-1.1 [facility] Comment on above: Performed By: #### 2 812668, 2611445, 1434455, 18454121, 2535949 #### [facility] [address] [place] [address] Calcium [Mass/Vol] 9.6 mg/dL Normal 8.9-11.1 [facility] Comment on above: Performed By: #### 2 005640, 8541005, 0862785, 39067774, 2101316 #### [facility] [address] [place] [address] Chloride [Moles/Vol] 103 mmol/L Normal 101-111 [facility] Comment on above: Performed By: #### 2 604984, 4784326, 7189386, 58687834, 9923429 #### [facility] [address] [place] [address] CO2 [Moles/Vol] 27 mmol/L Normal 21-31 [facility] Comment on above: Performed By: #### 2 966399, 5298298, 3441431, 62665212, 0263396 #### [facility] [address] [place] [address] Creatinine [Mass/Vol] 0.9 mg/dL Normal 0.5-1.3 [facility] Comment on above: Performed By: #### 2 049052, 4231453, 7578212, 68526109, 7098134 #### [facility] [address] [place] [address] Globulin (S) [Mass/Vol] 2.9 g/dL Normal 1.4-4.0 [facility] Comment on above: Performed By: #### 2 466583, 7739220, 2921079, 10279124, 6730284 #### [facility] [address] [place] [address] Glucose [Mass/Vol] 100 mg/dL Normal 55-199 [facility] Comment on above: Result Comment: If t his glucose result represents a fasting glucose, interpretation should refer to the following reference range: 55-99 mg/dL Performed By: #### 2 432809, 7590883, 6341414, 35534892, 3902598 #### [facility] [address] [place] [address] Potassium [Moles/Vol] 4.3 mmol/L Normal 3.5-5.3 [facility] Comment on above: Performed By: #### 2 193664, 5442018, 3153383, 95405060, 1146412 #### [facility] [address] [place] [address] Protein [Mass/Vol] 7.5 g/dL Normal 6.0-7.8 [facility] Comment on above: Performed By: #### 2 564121, 6648604, 8875452, 28959718, 1348326 #### [facility] [address] [place] [address] Sodium [Moles/Vol] 139 mmol/L Normal 135-145 [facility] Comment on above: Performed By: #### 2 003804, 4320024, 4937031, 61406114, 6624565 #### [facility] [address] [place] [address] Urea nitrogen [Mass/Vol] 11 mg/dL Normal 5-21 [facility] Comment on above: Performed By: #### 2 302076, 3959779, 5630021, 66999157, 0096120 #### [facility] [address] [place] [address] Urea nitrogen/Creatinine [Mass ratio] 12 No Units Normal 10-20 [facility] Comment on above: Performed By: #### 2 192683, 0114878, 9384821, 81704230, 0204475 #### [facility] [address] [place] [address] Consent for Treatmenton Consent for Treatment [id number] #1.00CD:127 Normal [facility] Physician Orderon 01-15-2023 Physician Order [id number]# 1.00CD:127 Normal [facility] TSHon 01-15-2023 TSH Qn 1.42 m[IU]/L Normal 0.34-5.60 [facility] Comment on above: Performed By: #### 2 081649, 0551663, 3265418, 06805618, 8320378 #### [facility] [address] [place] [address] Vit B12on 01-15-2023 Cobalamin (Vitamin B12) [Mass/Vol] 600 pg/mL Normal 50-1500 [facility] Comment on above: Performed By: #### 2 052405, 1531392, 2690681, 88613927, 7643375 #### [facility] [address] [place] [address] eGFRon 01-15-2023 GFR/1.73 sq M.predicted among non-blacks MDRD (S/P/Bld) [Vol rate/Area] 120 mL/min/1.73 m2 Normal >=59 [facility] Comment on above: Order Comment: Order added by Discern Expert. Result Comment: Time Signal Wirer mayra kidney disease could be indicated at eGFR's of less than 60 mL/min/1.73m2. Kidney failure is indicated at less than 15 mL/min/1.73m2. Performed By: #### 2 580442, 3614184, 7283201, 08261172, 2331876 #### [facility] [address] [place] [address] Holter Monitoron 01-08-2023 Holter Monitor [id number]# 1.00CD:127 Normal [facility] Pulmonary Function Studieson 01-01-2023 Pulmonary [...] BY: Angela Roberts M.D. lr Dictated: 12/26/2022 [id number] Transcribed: 12/27/2022 cc:Bi Bell D.O. Normal [facility] Comment on above: Result Comment: [...] to be returned on: 12/28/2022 Monitor number [id number] applied. Procedure Holter monitor returned without diary [...] [facility] [address] 02/22/2023 10:15 Cesilia Knight, [id number] DO Signatures Electronically signed by : Cesilia Jeter MD; Jan 07 2023 12:43PM EST (Author) Normal [facility] Office/Clini c [...] wearing a heart monitor ordered by his biogeographer. History of Present Illness I have reviewed [...] increase the LDN to 3 mg Ordered: [facility] Prescription, LDN 3 mg, See Instructions, 30 cap(s), 2, 1 cap po at HS, PopJam, Compound, 193, cm, 12/26/22 16:03:00 EDT, Height/Length Dosing, 112.1, kg, 12/26/22 16:03:00 EDT, Weight Dosing 2. 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, not elsewhere classified) See #1 Ordered: [facility] Prescription, LDN 3 mg, See Instructions, 30 cap(s), 2, 1 cap po at HS, PopJam, Compound, 193, cm, 12/26/22 16:03:00 EDT, Height/Length Dosing, 112.1, kg, 12/26/22 16:03:00 EDT, Weight Dosing Insufficient sleep syndrome (F51.12: Insufficient sleep syndrome) Ordered: modafinil, 200 mg = 1 tab(s), Oral, qAM, # 30 tab(s), Refills(s) 2, Pharmacy: [facility], 193, cm, 12/26/22 16:03:00 EDT, Height/Length Dosing, 112.1, kg, 12/26/22 16:03:00 EDT, Weight Dosing Follow-up With When Contact Information Bi BELL DO, FAM In 3 months [address] [facility] [address] [place] [address]- Additional Instructions: Problem List/Past Medical History Ongoing [...] Current, denies, 10/21/2020 (more content not included)... [facility] Comment on above: Result Comment: Elec tronically Signed By: Bi BELL DO\.br\Date and Time Signed: 12/26/22 16:30 EDT Retail - Clinical Noteon Retail - Clinical Note [id number]# 1.00CD:127 [facility] Consent for Treatmenton Consent for Treatment [id number] #1.00CD:127 [facility] Pulmonary Function Testson 0 12-20-2022 Pulmonary Function Tests [id number] 2#1.00CD:127 [facility] Consultation Noteon 12-19-19 Consultation Note [id number] #1.00CD:127 [facility] Office Visit (Cardiology)on 12-14-2022 Follow-up visit Diagnoses/Problems [...] told patient that I am not an equipment scheduler, but I am comfortable starting the work-up [...] 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 While at work, he developed chest [...] not or (more content not included)... Normal [facility] Tobacco Screening.on 023 Adult depression screening assessment No [facility] [place] [address] DO Work Phone: Fall risk assessment a) No falls within the last year [facility] [place] [facility] [place] Work Phone: Tobacco use status [facility]PH[facility] b) No [facility] [place] [address] DO Work Phone: Calprotectin, Fecalon 2022 Calprotectin (Stl) [Mass/Mass] 112 mcg/gm Invalid Interpretation Code 0-120 [facility] Comment on above: Result Comment: Conc entration Interpretation Follow-Up <16 - 50 ug/g Normal None >50 -120 ug/g Borderline Re-evaluate in 4-6 weeks >120 ug/g Abnormal Repeat as clinically indicated Performed at: [facility] [id number] MD Selvin Madden Performed By: #### 1 [id number] ####[facility] [address] [place] [address] Consenton 12-07-2022 Consent [id number] 8#1.00CD:127 Normal [facility] Patient Eval Forms Officeon 12-07-2022 Patient Eval Forms Office [id number] 9#1.00CD:127 Normal [facility] Patient Eval Forms Office [id number] 7#1.00CD:127 [facility] Consent for Treatmenton 11-14 Consent for Treatment [id number] #1.00CD:127 Normal [facility] Physician Referralon 023 Physician Referral [id number] 8#1.00CD:127 Normal [facility] Medicine Office/Clini c Noteon 11-30-2022 Family Medicine Office/Clinic Note HPI Staff Cindy is a 27 year old male who presents to review labs drawn at [facility] on 11/01/22. He reports that these were [...] there is autoimmune issues. He has seen lead technologist in cytogenetics which he states was a waste of [...] cap(s), 0, 1 cap po at HS, PopJam, Compound, 193, cm, 11/29/22 13:54:00 EDT, Height/Length Dosing, 111.5, kg, 11/29/22 13:54:00 EDT, Weight Dosing 3. 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 Working to stop the metoprolol and start him on Cardizem. Ordered: ECG 12 Lead Adult [facility] External Ambulatory Referral Pulmonary Function Testing 4. Insufficient sleep syndrome (F51.12: Insufficient sleep syndrome) He is doing okay with the new ray. 5. 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, not elsewhere classified) We are going to start the low-dose naltrexone protocol. Ordered: Misc Prescription, LDN 1.5 mg, See Instructions, 30 cap(s), 0, 1 cap po at HS, PopJam, Compound, 193, cm, 11/29/22 13:54:00 EDT, Height/Length [...] Daily, # 90 cap(s), Refills(s) 1, Pharmacy: [facility], 193, cm, 11/29/22 13:54:00 EDT, Height/Length Dosing, 111.5, kg, 11/29/22 13:54:00 EDT, Weight Dosing magnesium oxide, 400 mg = 1 tab(s), Oral, Daily, X 30 day(s), # 30 tab(s), Refills(s) 2, Pharmacy: [facility], 193, cm, 11/29/22 13:54:00 EDT, Height/Length Dosing, 111.5, kg, 11/29/22 13:54:00 EDT, Weight Dosing Follow-up With When Contact Information Bi BELL DO, FAM In 1 month [address] [place], [place] [address]- Additional Instructions: Problem List/Past Medical History Ongoing Abdominal pain Acid reflux Autoimmune disorder Bilate (more content not included)... Normal [facility] Comment on above: Result Comment: [...] of intestine) I would suggest to start wgyl-exr-marivav probiotics and we will start him on [...] after patient or guardian consented to allow [employer] to record this visit. HERI crisis specialist and provider reviewed before signing. HERI: Hernán Bustamante Follow-up No qualifying data available Problem List/Past Medical History Ongoing Abdominal pain Acid reflux Bilateral knee pain Bilateral shoulder pain Chronic abdominal pain Chronic diarrhea Chronic shortness of breath Diffuse pain Essential hypertension Fatigue Fatty liver Fecal incontinence H/O: migraine Idiopathic smal (more content not included)... Normal [facility] Comment on above: Result Comment: [...] PM EDT With: Bi BELL DO Where: [place] [address]-\.br\ You Need to Complete the Following\.br\ Calprotectin, Fecal, Stool, Routine collect, 11/23/22, Order for future visit, Nurse collect, Watery diarrhea, Print Label By Order Location\.br\ Medications\.br\ What How Much When Why Instructions\.br \ New ciprofloxacin (Cipro 500 mg Tab) 1 Tablets By Mouth 2 times a day Small intestinal bacterial overgrowth (SIBO) Duration: 10 Days Pickup at [facility]\.br\ Unchanged clobetasol topical (Olux 0.05% topical [...] if questions or concerns \.br\ Pharmacy Information\.br\ [facility]: [address], [place] [id number] [phone]\.br\ Allergies\.br\ cyproheptadine (Drowsy)\.br\ Problems\.br\ Ongoing - Any [...] Tachycardia\.br\ Vitamin D deficiency\.br\ Watery diarrhea\.br\ \.br\ [facility] Physician Orderon 11-20-2022 Physician Order [id number] #1.00CD:127 Normal [facility] Auto Diffon 11-17-2022 Basophils/100 WBC (Bld) 0.9 % Normal 0.0-2.0 [facility] Comment on above: Order Comment: Order Added by Discern Expert. Performed By: #### 2 [id number], [id number] #### [facility] [address] [place] [address] Basophils/Leukocytes Auto (Bld) [Pure # fraction] 0.1 E9/L Normal 0.0-0.2 [facility] Comment on above: Order Comment: Order Added by Discern Expert. Performed By: #### 2 [id number], [id number] #### [facility] [address] [place] [address] Eosinophils/100 WBC (Bld) 2.2 % Normal 0.0-8.0 [facility] Comment on above: Order Comment: Order Added by Lopez Expert. Performed By: #### 2 [id number], [id number] #### [facility] [address] [place] [address] Eosinophils/Leukocyt es Auto (Bld) [Pure # fraction] 0.1 E9/L Normal 0.0-0.5 [facility] Comment on above: Order Comment: Order Added by Discern Expert. Performed By: #### 2 [id number], [id number] #### [facility] [address] [place] [address]3561 Lymphocytes/100 WBC (Bld) 32.3 % Normal 14.0-50.0 [facility] Comment on above: Order Comment: Order Added by Discern Expert. Performed By: #### 2 137147, [id number] #### [facility] [address] [place] [address]60 Lymphocytes/Leukocyt es Auto (Bld) [Pure # fraction] 1.9 E9/L Normal 1.0-4.0 [facility] Comment on above: Order Comment: Order Added by Discern Expert. Performed By: #### 2 [id number], [id number] #### [facility] [address] [place] [address] Monocytes/100 WBC (Bld) 6.4 % Normal 4.0-14.0 [facility] Comment on above: Order Comment: Order Added by Discern Expert. Performed By: #### 2 [id number], [id number] #### [facility] [address] [place] [address] 18873 Monocytes/Leukocytes Auto (Bld) [Pure # fraction] 0.4 E9/L Normal 0.2-1.0 [facility] Comment on above: Order Comment: Order Added by Discern Expert. Performed By: #### 2 [id number], [id number] #### [facility] [address] [place] [address] 97758 Neutrophils/100 WBC (Bld) 58.2 % Normal 36.0-75.0 [facility] Comment on above: Order Comment: Order Added by Discern Expert. Performed By: #### 2 901556, [id number] #### [facility] [address] [place] [address]193 Neutrophils/Leukocyt es Auto (Bld) [Pure # fraction] 3.5 E9/L Normal 2.0-7.5 [facility] Comment on above: Order Comment: Order Added by Discern Expert. Performed By: #### 2 130433, [id number] #### [facility] [address] [place] [address] 12213 CBC w/ Auto Diffon 3 Erythrocyte distribution width (RBC) [Ratio] 13.2 % Normal 10.9-14.2 [facility] Comment on above: Performed By: #### 2 [id number], [id number] #### [facility] [address] [place] [address] Hematocrit (Bld) [Volume fraction] 44.7 % Normal 37.7-49.0 [facility] Comment on above: Performed By: #### 2 277514, [id number] #### [facility] [address] [place] [address] 14595 Hemoglobin (Bld) [Mass/Vol] 15.2 g/dL Normal 13.5-17.5 [facility] Comment on above: Performed By: #### 2 242642, [id number] #### [facility] [address] [place] [address] 08082 MCH (RBC) [Entitic mass] 29.5 pg Normal 27.0-34.0 [facility] Comment on above: Performed By: #### 2 674497, [id number] #### [facility] [address] [place] [address] 19629 MCHC (RBC) [Mass/Vol] 34.0 g/dL Normal 31.4-36.0 [facility] Comment on above: Performed By: #### 2 556323, [id number] #### [facility] [address] [place] [address] 41908 MCV (RBC) [Entitic vol] 86.6 fL Normal 80.0-100.0 [facility] Comment on above: Performed By: #### 2 163123, [id number] #### [facility] [address] [place] [address] 51572 Platelet mean volume (Bld) [Entitic vol] 7.3 fL Normal 6.4-10.8 [facility] Comment on above: Performed By: #### 2 625480, [id number] #### [facility] [address] [place] [address] 47252 Platelets (Bld) [#/Vol] 270.0 E9/L Normal 150.0-500.0 [facility] Comment on above: Performed By: #### 2 041811, [id number] #### [facility] [address] [place] [address] RBC (Bld) [#/Vol] 5.2 E12/L Normal 4.3-5.9 [facility] Comment on above: Performed By: #### 2 488127, [id number] #### [facility] [address] [place] [address] WBC corrected for nucl RBC Auto (Bld) [#/Vol] 5.9 E9/L Normal 4.0-11.0 [facility] Comment on above: Performed By: #### 2 421055, [id number] #### [facility] [address] [place] [address] Consent for Treatmenton Consent for Treatment [id number] #1.00CD:127 Normal [facility] Coding Summary.on 11-06-2022 Coding Summary. CD:[id number] Ww+PGhlYWQ+VX6GOTUnW 62eeKYdyI5yN7AJRUkRK ywgQVBQTElOSyIgbmFtZ K9pgUFlFVMl IC8+BT0iVROrZdszrAVt p4S7zBZ6D65ddx0nQCpj zDN7GAUyGeQgrbsrb0cd rSi8BKzlWnbxVhBx CXEofH32EXC3zF23Ra83 wFNdnFNnc9gvkOd6RyVn NJJoWXA6aGhlMRgtn9Nw XEFmH12teHQwd8K4 IGNvbGxhcHNlOyBlbXB0 eZ4bTIcjkxbcw7ukykyq Cif5ao19pGFky5B2xFP1 T1VaizW3PAJcgNCr MtfvhYAQmV9pgmuhq0ff vgtcQiZeOUHvKLq0HTv5 PNVllHlhGwDzRP13IES0 MLHehoMrO3WvHEXt lJixGfZ9k8H9Fs8JO1RT EzshQ3AEPTAMOWbhxTG+ JD42oe57K8MwPkapIfo8 VVHuRVB2eUO2gX3g ZHAmGXalo6M1cJN9A4Fq jiLzok2mx2kxOTAeQBtr X25tuJTza5L7WWRbhZA3 CBZxqVgdXwJmzI81 Oyc+GBKzwQerw3QlQpjg g8hfs3gquIu5XybhPGZx puEbtXseVBZ3d6LrUz8t GCFfbYK5sPM8aN0k HzGwQlP6OCucD782XrTp hTXeEcmjS45vX1DinLR+ CGKaClg9CADdaRynMW5b D5KiJDVydapzyZHf qXmeDC7oPPKmhyuiOWLy cF2rZBWzY7e1KnJaLyX0 OHfcV1SeDRYkozlpPo30 aI9dAuOeYuH9LLlh W0YgohG4EUDaqHFhLJwp HAM9Y97ql8R3NGXiBZVz OWC2nTH0lG2zdOugjzsx bGVmdDsgdmVydGlj JIstFZjrL661ERXkiOen PkNvZGluZyBEYXRlOiAg MDQvMjQvMjAyMzwvdGQ+ RRRiTKX9xVtqXISf nAUpAEvjAb6xxIrvyRvw UF8tOEZrtptbXEYpfZ6d UEXopKMzuGgaFE2kDVUg khrhu222UrTcNYU3 CIKkfMQlD3VvcF7uOeIu QZLcVHIzU2JiwXUzNLpg L629NZrbIoA4AKJwpyIn U9UmWMLbsArhYxJ2 t5X4Fr7Rk9YjucuaU6Uy lXDdHgMwLpcfCQg1Q5Ii PjwvdHI+BQ62CLKwUP28 XPk2VTU9pCjeZAcu PQUxB6PkuZ1mAwJtRECk ZGRkOyc+PHRhYmxlIHdp ZHRoPScxMDAlJyBzdHls HT8cNq0xPBBkGOZz hTlxgVXuXoQql7miWUQz HUfgFH7ppAiaD3MnsIM1 YAGdf6r0Zu87D74mT1Mf dXA+JDKmpFH6aKP6 cG3uTiRaNfU4NBeuN218 YqSgxAFjEqppx2atk2se cEw1RfK2TOYufaVklIif GSH9p1ClQz25V64b IHdpZHRoPSIxNSUiIHZh wFhdni8adC5qCr8+PGNv xUB6tAJ2rL0cJnLbNbU5 YZymN543UlNyvXQy Nwuby5ikg7uusMw9BwVj YCKoueCcvXpxIRZ5x8Tt Sd60S4WrtJjlg5DnCoh4 cf81nMAka4G8iON2 K6JhUFYybqhtpLUupQzc MC1bIRNpmfgbQZZvcN5x QPRwR7p4GmYyIrR5QAmg O0AcfeZ9PMTyfBEl HSKebFIQyT6zcgbet4zf tqbfLaItUVObECo6NKa5 DVZabQmbYxBmDEN6PhB4 PXM9kTYshA4rdHuw fbzllA5kQfg+PYV4yHAg xXXVBI9aQknplZM+PHRk MGQ5wAadGBfjBAMlcF7l YMLmH2r4OdVjDuW1 YAvtX2HtqdE5LJTnkKKl GJAlpQEEkF2lvaxwi0wz wyioKqTbEKXhQBr7ALk6 LWFsaWduOiBsZWZ0 NyZ5RTC0qAGveY9xhPto sskzpD2pZjq+QmlydGgg UGJ7PYo1L7LrXdv5EUBw oPalMW8kxTExMDpv Ih4mgWtefVykQL3aABEb lygxl399PeBzy8wyDMVe kAGsDKdgNDP4A91vg5U0 AVNoBZViAFF2sBT7 sY4ziGbsvjgtnIIgjQsf wgWsxPyyFCttMXvpP418 YYXjiRlaGcFwFHb0L7Bi Zjc2ODLniMebAX2k kCLjNHkqOd9wvEseuAmd RH1rGMHzdsokx778IiXl t1jgMGEozADfRGnzBLN3 M59tf3O0VTJfVRNr BQC9mSP9iV8dqPrgmcaw bGVmdDsgdmVydGljYWwt QNewP647RQYpvCqiXwJc lRt4O8BlTwb8YGRy gLwdLA6twEFuUOhaWy6o zAwtcPxnVM1pKBTmlwph f498NrLqt7kfMHJkdHVm VIorTIP4D47zt1O9 BJDwEXEyAWG1wTN7jA8v bGlnbjogbGVmdDsgdmVy wRlbZHvxUDobF386WMGt cDsnPlBhdGllbnQg GLebHBs4N4OcCkafxBN+ XC58HVVeBJ77iOOkyAUd l8xhoRv6WwNaMTOqLZR0 jSiwRBomt7KjDWRc Y53mjKVje7P7OTVhfJlr kAFaRvKrrVO2rU8yQZku ucuja4dieexaIcbvd9ed bu26rQ43N82vAQnv ZHRoPSIzMCUiIHZhbGln my5qlJ1nVa1+PGNvbCB3 wFQ0aO7zSDSyTjY2XPzn E301FdOzbPIkBibl n6yjr3hswDq8JhG9SKWj jrEgmZkkGKW7b6MzPx92 Z69wRBvaYSFuHYHtICBj QXLsyFffae5pcC4e Ii8+QMCzyMT7sVV1lY6n EzUuUaA4VMrpL796IuDs rGJlFgjoA27eO7NthXQ+ OULfPhj7NXCzzUsi PQ1caPAfDVosZi5wEAM2 TgVwNrBxPMbsA9PoLXEd ndnpkxhuhSW2TEAaNEMd tU81Io1erKljZUTy lAUSqR1dxtgdh1wifiln ZeEjAQZfCBf3MJl0PDWa mRklHtTyEBG0OoQ7QII4 fSDanF6ihCzpbwet oE8qK3JlRKAxovwlAz10 jA8kCtXnGuA5XHusDvw+ Yv0FBOGBM9aFYBBULE0A QVMgRDwvdGQ+PHRk DHC5zQmlHDgaEAFxnE3t GULnL6x9BkJoYqC4UCll K8LyNXKnebtaJh39fC6w JaUuUqQ9VShpG6Wp keT7RTDzgUYjOJyeHGS4 J15mw3U9DKVhDYMcQFF8 qYB4zX3cdJxemetssZWb dDsgdmVydGljYWwt WRbmH271IZZjsHzrXqGs MjA4AxL1RVL1L3SlUpv9 LHUstFhxTD1aeWVmZVlh Xx3szNuymCtzLZ2a MWIrkjxcDPNlsL8sMTUc qCCehNrdGW6lZABhlswn z219WoAyUJC3ASPatRVf O4WqeU6kGvDmOZFm KYDwE9TmwXObCHvsD528 KBstNuU0JCVoaoZxO4Hf AZVsqTxyLsX7y7M9Vi2x NyBZZWFyczwvdGQ+ VWDkOJQ8nFfyHZejYQVs jE9qXRBjA8m1AaNjCxN2 BYazS3YyEPCwocsxRm02 yE7aSwOkVtI4VRsf O4RryyN5ZYCebPUtORng KCG8O27dt9B2MSYaKRGo LRQ9qSB8tM9nxGgeuvgi bGVmdDsgdmVydGlj IMqySUmvJ815KQUpzXrt Nh4dvSR8K3WuQux7DTCr mIocZZ6leMUgVPybYr4r zKjrfEvjZB3nLBWo bsdpCQNdtD3rBIRvfHBx hQcuVF7aGXHqsejqd542 NfPwXDU4DEAwkCYaS3Ch yI0iGpGeGLItNNUm T9WzuFUvMGsbN199EPru DgU4FVJmpbFeO0UqUIKi sQkhAxM0r7Z4As5CjEJo HDGsPH76XP85WZ12 Z7KsHukciZGwgAR+PHRh YmxlIHdpZHRoPScxMDAl ZtSviKowJV3cOh0oSVDq LWNvbGxhcHNlOiBj n1boJBOfMTyzUZ4gmMmj Z3EfyFO8WOUgx8i8Zb84 V11qA6HwmXD+PGNvbCB3 eGT1pM1nRzGkAzR2 WTgbF398JeQrsHTlGsnx v6vut4jslOa2OoIcYRYd zxSdyLahFCZ1g7QgVa84 O52xRMniLUNwXIEm SXWbTAQnnQlkxl8hnH3j Ii8+VBHhlMD4wTK2zY6a KoCgLkW8ITnwH348ZaYg lWLhFsmnC93iY9Ua dXA+CKAqHpq4QZJcqHwn SE5mrFUwFPjaYm4vIRE1 RsCyOhDeHKqqC8VpGHAy rijjmzkklKZ5RUPs QQVkxK08Os3lkJfpRf2g KHCfUKV7PLHtzEJdV8Mi hY3fLuNeHYSoMDQgA5By zXTaGWhrS398TWtt FsP6VFChniIhB0NjVTJx wWsjVfD0u8H3Lg6UlVoa nHSsOY4gNiAsIWh8O2Bu Hev3RGLyoVloQY9q nGZmDDqrOh4aqTttxZuq JK4vUNJnflsyu897KlRc k5dbVXBwqJLuXGakKOX6 O34oo6Y7CHLsIKDk RLT3nFH5tI0njCwullpq bGVmdDsgdmVydGljYWwt KUalU047WCOssAbfZvXT Gzy9A7NfYwv5IOWv wQjsZA5qwCIwXQfyQq0g sBhzcIcfVN7kJOFqhror u902IyXbl2weHQCuyLCq HZtrHCZ2I09ui7S7 PPOuKEMuJOX8nWJ3cX0k bGlnbjogbGVmdDsgdmVy zRybGLgtDLbiN857BDIx xWuaCh6PDkl6I9Wy Rpa6SDGnhOzaZX5zkVWq LBshTo0elKrchDsgHT5z AKWrmpzlr018PjUry6ys IDEwcHQgVGltZXM7 O03iw8S9HKYsHCJbURY6 lIW0oN3wkWlimfwsmUHl dDsgdmVydGljYWwtYWxp X370CEMslHlrAmTa eWVyOjwvdGQ+UK10lz27 P4MmEkucTvt5JYYiLSP1 uKI9hT6sPLCqASvdm2C6 iYJ5E7JymaQsoj5u n5lpDRRi (more content not included)... Normal [facility] Coding Summary. CD:[id number] Ww+PGhlYWQ+VO8KQIBzH 49foTYsqZ3wX1EQZVgFW ywgQVBQTElOSyIgbmFtZ Y7lpCFmCJFb IC8+ZH0iEFJzDdiwsUAe d1U5sWV7G18zbu4sPHfp iEO7RMCxGyOunkzrx2zh dQe2DRlfSesdBaPr XMOoqG72FZV9gR11Lw19 fBBrjEAab5fngFn0BlRu NNJhBBS5mYcaMFcle0Yd WFTzA29duRNam2K1 IGNvbGxhcHNlOyBlbXB0 xC9cXYmkxobts9ubguea Yeo6ka87iNKdh2N0cIW1 L7ChzkJ6RVPinDHo BlrtiYCCkY2dyxmwz0er lidfNrWtKYXtZNp0WUa2 OEZeySgtThGzJN13IDJ1 TYMapqHxT4VoNYBv rMwyZiF6c8X7Kf6DM2LR RruwI4CHEUPUBDhjmUP+ HV42xy89L7RsEwtmQfr8 KIZxXHP3xJP4lW3m WKMaQAkdm0M7qSL0B4Na tvSmpf3ku1qxGZYnRNqi I43onJPof3E1ZTJotKB5 PTRjeHrfVhUymP00 Oyc+BSUrnTihg7XbCqcz n2qyk9rkuJg7PmrkYRJf paYfpUmjIVO8e8QiVj4b DQQzpBO9kOR2fV6u XpVvTpR0EQvmP310UpPj qQKeCfyuB01sB6MhlFB+ OEUbIlr3TKYubSsvWB7p C8HiHEHazassoSJe yOzoZU6lEELubwkiLZCu tH4lXRCjH9h4ZiNuPlY8 QBoeF0PdXHRbzkgyMn09 tJ6bJhVlGpL8YKun O6ZrsxP6OLXpzCBcZPqd OHR7Q15sk6U6GENaEXRn TBC0jWH7hS1qyAbgvdwr bGVmdDsgdmVydGlj HEkxFMitN585HABgkUpy PkNvZGluZyBEYXRlOiAg MDQvMjQvMjAyMzwvdGQ+ NEEwTWX7pIklDCDw zKGzHNwqQt6rcDchmBja IO4wOSUtbslxGPXqkY9g IYJegOZgvOapZQ1hUQFr zjpre893PtOaHEC1 APJelROpG3HmxR1aZsZj VDJzGQOuU7OykZHpISwa Y156FKdySwV2ACTonqOf J5FtJIJaoJzlUpX4 x3J3It5Qj8YhdaerS2Fd kHMnHkNvKaxmDJr2V6Dm PjwvdHI+ZO27BOFyOC58 MHb2RUE5vEkiONla QXXkQ5VasB2fHpIoQESw ZGRkOyc+PHRhYmxlIHdp ZHRoPScxMDAlJyBzdHls NZ1rAv8aUHTkJHSv vPfcwIYkNeIbc5rlWHJg KAcqNM0keSgqF8CotNT5 IGVec9y2Tf09M64eM1Ec dXA+VRHotZZ1pUO8 vH6kPkIhYrA0CAxtF290 FiVoiBLhWdbhg7knc8iy nKn2ClP2AEFsnyMxbIzi LZV3r9SnZn35V53f IHdpZHRoPSIxNSUiIHZh rEpkta6gfY6oGj2+PGNv fSZ1aUW9vY1oGfSrJvU0 GPxrT198AsFjfTKa Xkbhl7wfu8xmhEv1KbIr PMAqfmZrpKmgDIA3d4Em Mk44A8VvlHctz2LxKwt9 wh86iPAxk5R1iKJ9 T5SmTXCheujumSNmsZzk KJ3lTWOggmqjHZStbI4z DFCzK2s0FfUmYxO7WZvi R4VariE0ZUKvbBZz GYFrsYORiL1irylyq6qe vachDnNmUYApDJy7HBx7 QMEttYukHuFbUZL6AiN4 YME9tBWcmT5dwWtq jabycP8yUtu+CIM0zZLm pWXTOC1yAgfdxQA+PHRk BSH5nPxeRHlkKROboY3c OLSsL4u5GbOiTfF0 GNzuB9FjanW8JAYkbNRw WDAnxDJZvC8cjjqfu1ap tmezHrKeUUYfLHb2PNx8 LWFsaWduOiBsZWZ0 WyR5THZ8kNUhmZ9noVsi iotsxU4qHyi+QmlydGgg YWS1XUf9N3UeGtm6VUKu lXzkCE8viTEpSFcz Ph6rwUeqhAejDQ0cLZPt rewlr871RlSoz2wvSMAu wAYxWYpbHDT0X26wk2D6 AAMzOUOoBCN9cLS6 rQ0jlScbsmyufQAfbNrt xgWcaDnsPFswNJhvK355 EMOwrAftGlTiOPh2C4Mm Ksd6MFZvsBycWQ4u xRSvPGdvKm7wpGaatYan LW1qGLYbofzrb147AuRl g1neFJXdpPJaAEhdKXM6 H05in4Q4IZEzVYQc BMZ1pQG5mN0ydQcyvkxc bGVmdDsgdmVydGljYWwt GXchP623FRFxhRneKvGh aLg2G2WyAzo3GNTp fMneOE9spLAySUsoVc1k rHlqqDfiHO5aRKBterkw x422KiQbu5wqXRMwnJBb SJohFBF9Q60qx6E1 NISaDLVeDVY2nFJ7iL0a bGlnbjogbGVmdDsgdmVy bEqjPXygRHijI826CTPp cDsnPlBhdGllbnQg OZmvSOn3F3RcOwlpmUE+ LV32WQVxIZ40kMSsmQMb c3eyfQs4DeAnVWQtKIJ7 kLwwIVeqm8LaNKHb B86ulQSjt1H4GBFrcXcs pPLvFvZeuUD4nA3yFVvt gqdup7ehzpkgDexsb5mo je15aQ02S35mWWcu ZHRoPSIzMCUiIHZhbGln rm6taK4nIl2+PGNvbCB3 aPN2mB5cZMIqOgD4ECyr T503ZaXckQZbZvor l4ppt1chrGt5GwN0ZVUv hnRqnThbEEC2s9XtIg59 C57uJYlqYTYgXWDeGCNv TKHbhBbhjs1ayT4c Ii8+JZMztIZ8jXH7oT1q OuXfWhV5LZymW003FmOv oWDqOoftP21kE9RbiFJ+ TNUpTts0NYUkpTfz YE8zgXWkTEueSu3dUOG8 IgOpWsUfVItdT9QsNNBm cqsozbywoMC9PLItJEKd wO99Aq7vdYfrKIHj zZVGdL9xoxair7strhtu WgPbBFYtINe3FCt4CFRc aDiuMvZuKAF5AeQ3ZMT2 rJShdL6nwLytbweu bQ3fK9JbJQDkcgrzUm65 eC9gKuMjIsQ6SWopNvm+ Lz4JDSBDP7uTUDDPRW3Q QVMgRDwvdGQ+PHRk ZPL7tTcuAUkpZXTlhC4g ONLcP5z1TfGoNlN0TZds F1LiNFRvulxyJe18fH0z DlDkFkX9XIssG5Mm rzL1WKWicYEiKXjpJMM8 D44rt5S3UUZbQHGlFWK6 gTC8gP5qcIusnyeyiRBh dDsgdmVydGljYWwt GJqpY672WWZuiXzeAmRx XzG2RbP9MRF4U6EcUdg5 BPFbyTbqAZ4diMKaGYdb Ff5wmQfepFyaUN4o NQRxfccpDXFmxM6xILVo pDCelYctWG5uXQDcxdah g127JuUcNAG3NMTrjQVs H8BeyN9jTtRiYSFj UGEzB9IakTNlDJrlN311 NBxyAmL5QYDopnSpG0Mc UQXmsIhnGyN1c5W8Ww4e NyBZZWFyczwvdGQ+ FRLzHZP6hYxyFAyaVPEq mY7hPYDzF0w3LaGqOoA0 SCnhC7WpRVYnrkngFk89 wO9rJzZxFkR8UPse O8YxbyI5TNFkwHAwCThl KYE9T62gh8Y1UHYrEZXe NNE7cYB2uG3hlVcarxwb bGVmdDsgdmVydGlj IKliMXpeG654WPUefImh Tp8fsSZ1J6OdChi5FRNl wUyvCL6npTAqAPpnAs9u uAcfmLbnKU8uASFo sfphPWUakI6sAELutXDp pTigBL5fNDXjukgfe079 FrMzGCU1KDLxjTJoU6Aa cV7lOiQxSDEuJHPs U2IoxRNsKCgqR081CRqi VrQ3OTMkxhPkL2DfCTZa lUioGlI6a1B0Wd1GrFVg HUVsJP89MX02CU15 N7ZvOxhwrQDugEY+PHRh YmxlIHdpZHRoPScxMDAl VhFzlGueFY6eXz9mBYMu LWNvbGxhcHNlOiBj j2ssCMYwBUpgKO1ldYfy V0YquMZ4KQLqw7b3Lf98 P01nA0RiaQM+PGNvbCB3 uRC3mE6iGlQvKmW5 OKaqA526VlTxvHGcDvkb f0hrm0mwxIo1ObGjDVXx dcNzfTbsINM5b8NvGh15 J84qLOqzZSHtOBJx IJXuUNTddEgpcf8vdT9i Ii8+IKRsxRZ5vXD6aL3q HgCaRbI0OSvnM457DdIq iREzRhqmK66oK0Ut dXA+MHJpLzm4XFBgsTfu QK8fdETxJCkaZl1oKOU6 RqEtElGtHAljJ1JgOLEo wjfgzprecAO6LEEr VUSmrF54Sx9nwAaqLe0s CCHiWPE4DYBhpQCvD7Ks nO5sJuRlSFHrSJOpI6Xv xSAzTFyoT986VZda DwR9IXRdzaKfR3RlWGBj xNnkCfF8r7D1Wb9WuYqx oZFjTI9bNhNaVAk2I9Rn Xru4PHUuqPzuGJ3a oHQzXEsxBy5nbFjrhBbx BV0tRDTbzhgdk167FxQa w7fsEEGaqYQjTZebLTR6 N68ru1X6IMDyIQZu VXQ8wCO3rE5cpCqgufdi bGVmdDsgdmVydGljYWwt ZLnqD874HKCwsPaaAaWW Bxp5L5IrWna0XKMh hGlpLF8eqHOxMJgnTc9i zJgmfXhuTK1pPGEjyihs w238JaXar9mxQAYteRAd OCjdSHX7D68db1K7 WTVaAURaUZB8iAT8vJ8q bGlnbjogbGVmdDsgdmVy tBxvTVtzDNvhL868QJCu dUmzNb9TEyi2K8Ai Wzx4CSBjiKxmZI8cqGJb YZzvGv3ibTgniYbsRT8w FWDjyaogx298QoQvr1yn IDEwcHQgVGltZXM7 F10qg5O8OWVfWRIeDQM7 uPJ2gU5teEtmsjnfqGEm dDsgdmVydGljYWwtYWxp D943XVLfnVzwSiRj eWVyOjwvdGQ+WE56zy02 D2ZoNtotZzw9WDAzGAB2 gVD8zC3dHEOcIBpaa5D9 eWN7A6DtdnIfxe4o u5ilFXZk (more content not included)... Normal [facility] Postoperative Documentson Postoperative Documents [id number] 6#1.00CD:127 Normal [facility] Physician Orderon 11-02-2022 Physician Order [id number] #1.00CD:127 [facility] Pre-Certification Formon Pre-Certification Form [id number] 5#1.00CD:127 [facility] Auth for Release of Medical Recordson 11-01-2022 Auth for Release of Medical Records [id number] #1.00CD:127 [facility] CHEMISTRYOrdered By: SYSTEM SYSTEM on 11-01-2022 25-hydroxyvitamin D3 [Mass/Vol] 29.7 ng/mL Low 30.0 - 100.0 ng/mL [facility]isol Cobalamin (Vitamin B12) [Mass/Vol] 296 pg/mL Normal 50 - 1500 pg/mL [facility] TSH Qn 1.27 m[IU]/L Normal 0.34 - 5.60 mcIU/mL [facility] Consent for Treatmenton 10-14 Consent for Treatment [id number] #1.00CD:127 [facility] Consent for Treatment [id number] #1.00CD:127 [facility] Consultation Noteon 11-02-19 Consultation Note [id number] 8#1.00CD:127 [facility] Physician Orderon 11-01-2022 Physician Order [id number] 5#1.00CD:127 [facility] TSHon 11-01-2022 TSH Qn 1.27 m[IU]/L Normal 0.34-5.60 [facility] Comment on above: Performed By: #### 2 [id number] ####[facility] [address] [place] [address] Vit B12on 11-01-2022 Cobalamin (Vitamin B12) [Mass/Vol] 296 pg/mL Normal 50-1500 [facility] Comment on above: Performed By: #### 2 [id number] ####[facility] [address] [place] [address] Vitamin D 25 Hydroxyon 11-01 25-hydroxyvitamin D3 [Mass/Vol] 29.7 ng/mL Low 30.0-100.0 [facility] Comment on above: Result Comment: Vit puckett D deficiency has been defined as a level of serum 25-OH vitamin D less than 20 ng/mL (1,2) by the [place] [employer] and an Endocrine Society practice guideline. The Endocrine Society further defined vitamin D insufficiency as a level between 21 and 29 ng/mL (2). 1. IOM ([place] of [employer]). 2010. Dietary reference intakes for calcium and D. [place]: The National Academies Press. 2. Deniz MF, Erik HERMOSILLO, Jaqueline VARMA, et al. Evaluation, treatment, and prevention of vitamin D deficiency: an Endocrine Society clinical practice guideline. JCEM. 2010; 96 (7):1911-30. Performed By: #### 2 [id number] ####[facility] [address] [place] [address] Physician Orderon 10-31-2022 Physician Order [id number] #1.00CD:127 Normal [facility] Coding Summary.on 10-27-2022 Coding Summary. CD:[id number] Ww+PGhlYWQ+LJ7WJVHpK 56xpIAmtJ5dF5RWJTpWS ywgQVBQTElOSyIgbmFtZ Z7yeVUlIJQt IC8+VT1nDXMySlbuiLPd j8S0vLL5S08duj7zQLnc mBP6SYAcEiUunuxlp9cm eHq2OOgyJkxbMkGy RKVneS04WQE9eN59Nw33 yUXsrEKml1nprOh2IvOb WHCwDGI9tEqtBPbjh4Ma MKNnL85rfQZht6Q0 IGNvbGxhcHNlOyBlbXB0 nN4iUTdrqquxa1ggtavp Kst8il25cFOfw3U3uQD2 A1WooxH1QSXncAAu LeasfPZAbX2lviown5zv squlFdQnSFKtJLp4TYo6 XWCeyFrvKnXxEW31BVE2 QQMxhvKaJ0UvPGNz rSxlIuE7v8V3Lm9ED0XK YjitR8TPZXEUDCbwcZG+ CH99nb46T7OaXdneOon5 GFBiWRO6aPW6bA4u VIViHQwoq2P2nCI7Q7Wn ljOczp0mc6lsGLLaMNmj G53djQEhy3C4JZIwqFZ3 CEAnuHkoFgWkhC11 Oyc+ROQcnKept6XlNleb p1dad6nmgWe2EzgeNWTu qeBvyJcoIXF6v9SfJx0g CBSzpEZ0wEC9lH1r ZrCbViS7ZJmhO694MaFp kRZhDtcsH92iZ8IctBY+ JSIsPsv0JCBicWkeUI5x M3MzUOLyozsswJBa vIvxAO2jSINegttwMIXh dQ6jOHUwF1k2InJlEcW5 CPpxG9HbXCTgknysFq32 zT9yMvTcYnG6TFcg X4ImpwV7DPVssQIyRByq CCP0S20rl9D3VJBvCBUt ZEI1bCK5gY1auBngchfk bGVmdDsgdmVydGlj TQyoATxnC251EDLjkKix PkNvZGluZyBEYXRlOiAg MDQvMTQvMjAyMzwvdGQ+ UQRuNVB2aTgwSENe uKTpNKdhEr5crEuqeNps SB9iSCVdivpcFTGiqE2q GODyfMWwfBzoTA8bNFVb mnadn653SqRkBLM1 DULuiVToE1QkiP1uCmHy OZNzYKJnB9MxyDAfTAha E808FMrqLgF9DXMugwPt Y8InZSGlkTfcRdT5 p9P7Jw8Et0KmvrgpO7Bx wYMjGkTjGvgtSQm7R0Az PjwvdHI+IR83VNGiWC69 XKy1CMM4uLvcYSme ASMyN1CrpR0yJiClXZIg ZGRkOyc+PHRhYmxlIHdp ZHRoPScxMDAlJyBzdHls KF5oYo0tLLPrZZUl aNwaiHDaCxNsy4mjRUKt GWmgOH3jeXbbO2AijFH5 VYIaj3h3Hg99N20yR4Xt dXA+JRWlpGF9xTP0 rP0nIuKjIwQ8XZakH582 EwVneQTcOzjxl9kdx3el gXh5RrB7IJTfibDazHbl BTZ5y1QrOh44P58z IHdpZHRoPSIxNSUiIHZh gYkcps6wtW2yHc6+PGNv yMS8gCD3oV6hTyFdLvM2 AMzeK503VyZgfBBc Mszld3jop8ubsGr6VuYl EELmrkKaeTyxLEF3q1Du Vg82K2WevBvbz3RsFlb6 bj05sBFwe9J7xEL4 B9FgAQSmeptprZAqtRff TF2zPUPaocmuFUYmgT1m ZVVnB7l2CzRtOpD5AJsh I4HjpmK6JFWvxWDb IXVjuSWKyI2gfmmoq7gg zeeiEjWlIJQgGGx8VFi1 ASKkxCbaZlKgAPN7PvM8 DXS0kBJwfV9bkVrq qianwJ5dKvk+GVJ3wFWt mVRGUV8sFudqnRW+PHRk QLF6cEouNVzhLSEqqX1a KRCeA9g2AaImTpX5 EVfgS4DhnxG6GCQeeISa SEGvtOTNqS8wvjbiy9rc ssraJpXgAELeSEl0ZVc7 LWFsaWduOiBsZWZ0 CyE6WOB2fVIbdD9pwRji kpogiG7yGfk+QmlydGgg KUX0DUy1Y8GfQfy9WDTg wJgdCB4kaHDlOVdx La4azHoqiBktON0kAKTa zwpay395VsIdd5djDBPa tYTzFPbpYZU7P47ek2A5 PGDpIMVdVZG6hYF0 hK0ynVzzejvycGKzhSqr zwPciZtvEBmaWLzlD784 FYBfrWhvMfSrHKr8G3Ib Fuo3MUJghJidCZ0v vOCqAPvyUi8ubNhzsHcv SY3nBDUbsfmlg105UyRo y8yaHPLnoBAhUPguLCS0 I33ns3C4GUHnYTXx TAZ4dOU0wN7snUyamfoi bGVmdDsgdmVydGljYWwt SNatK540IOAsmKnsKhAn eVr3T8CpNhy9RMFq hZwiAP8pzRCwBXydRv2l wHkyiKaxJC1aAYDqysnj a554YwTnd1xsNRVuoLAl YFuwHCG0T13xi1O1 DHIzHLDwLWG1nML7rP2k bGlnbjogbGVmdDsgdmVy dVnxDQygYLfoC450RKWl cDsnPlBhdGllbnQg IVotLCh2Z0FcYunthGV+ GG69XGNlXA32tWWwiMPh o1vqfQm4XcYcJUYfPNK4 hRmlBPjot9VgTIHv J34ttAVmq4B8LYIcvYli qRFuCnJjwXG5xN0eWZpl nyuhy7nkbcopSzppu2ym cd52nR94W49bTWfv ZHRoPSIzMCUiIHZhbGln jz2pvK4tCr6+PGNvbCB3 uXS9tQ1zEIJhCeI4GNci O393XvEzdDZzOntd w3jno9wnkMp0BjJ3LODc kjExyIdkWMR7g7YhHi39 L95jBChlXIKyPNZxJTCk QEWgdCmuws9klY5r Ii8+QPLlkOZ5xRJ6oF7q IcWlDiX9HUumC511FfJy mDTvFnxcR96bK6UlrBT+ TUTlZri3JJLzuVms AC6euQFyMAauKi1qLZG9 UjEkUdCfIDftD3KmBDIf bxyfachkzSH5OMDnHAXa uA64Zl9doKptCDRk fWUAuH8wkavtc6gbjwfg BzHmCTQxUQo9SRl2AEOj nWnvDpTgOLJ6XlD9DMO6 eYNviL6biMnrpbkd gU3pY8SfCBRhfahmRo92 bY0pVsBdTcR8NRalDsv+ Yt7JCKKJK2qYXCYGQE1O QVMgRDwvdGQ+PHRk TMO6vGfdFIreIVKanD5l ZQKgX8p2AiNuKbB5SIxh H6LmVBEgbiprOy60wJ6l ClPbBsH9RXacR6Rx fvW1HURhrVUsAImbKBA0 I73jl3X5OMZkPQThKET5 eKR3zZ1dhFkcwlufgVZq dDsgdmVydGljYWwt YFpnN415YBNriEkyTwPe BqF7LuP5KFN7Y6ZrVkz8 EAXzpFmrBY6yvGBkFMfp He4tmEkpvSriBO1n CVWdjwgkGCDrrT9mZCEx xVTlzLclQH5wVGKylzto b652YvHpFFC3FJLdzYPh Y8MqiO1rAwSnTJHx UQEhU8DkgWFiOHiyU821 UOikBfE5FIWauxZuG9Hz SRUcwZgcKpA4p3U1Tk0k NyBZZWFyczwvdGQ+ WEDoDOK2mCubQTbwXFWd wJ2jTFDkR8t8GzUoJqV6 LIbxH5EpMYNdnyppSa87 nG7uUeRmMqL0ULjs F8LidwD6YTRbzOJtWTdk CFC8H70zz6A4IAFvIWAy SVY4rFZ4bI1xxRwhsggi bGVmdDsgdmVydGlj UDgoIKuvW485JQCpaGkq Eg1jgSM2P6JyYur7YASp mOioTC1kvPDwKUssOs9x pCyamNthDN2oHCDv lvksRXFjlK2eAUQikZXf kEvlOD0wYZIfvghjs970 WmCzWLR4YUAvoHHwK3Nx mW0eMvUoLXZlSVKo A3BhcXOqWDljW828LApu OwO5KNSukvVrR0HnRIIj dDybHyK6x3A5Fw3UnXTw YQTuJY07KP75BV18 C4ZjDvfcnOZdfNA+PHRh YmxlIHdpZHRoPScxMDAl GfDfpYlbWY6fYq0lTSKn LWNvbGxhcHNlOiBj j0llSZAaTDltLT7udTad Z6EkpYB1BVNkz4f8Dh42 A51dP0IzaXV+PGNvbCB3 lJE7mE2cMhZdIvJ9 MDacR738VcMqzKQiBxst r8qhg1abmQo8MbVeMONf akVtaYbxSVG6t0FcGq54 U26zHAdkJEQnMKOh CEDjEMYdtCzufq1trM3c Ii8+HVMlcNA9uOO1fS0o RuNtQeV0LElsW862PwTx gQRaQgtgM93uZ2Xp dXA+RZAgNqj1CVLexUcv IV3zpHOfQMijSo3vYMM2 YrPgWmYrGDnwH8XgUHRd lpzotbbevHG1CSWm WLJdcM19Gj6emGpbQv2r WATkRRQ6FHAgqVLxF4Lj jZ1xJmSiUYOoIGCwX8Cx wFPfWRlyJ912CMhi QaM3CNKpnrTpQ3OsCYGb hKviXtB6z2S0Ov2KlWnd jRVtIH6fUkUhXVu4H4Qj Zyd6JLMocHgyOP0o qWBoLAfqKe3zeNxsrQvm QU0fNANtjkuab385KwFu p4jqPSRsbFYjOFqlQPT8 B07de0A0VPXrHQOq KSB2tZC1yE2tzVhowltp bGVmdDsgdmVydGljYWwt EOmeD211WOUsxDfpJkXI Xdz3N0XaRey2JDQj mXgjES8hiIQtJFrvEe0r gYujyDdrSM5gLPQtdkon m638LwMtw8sbBWJwuGFr OYvzMRS3O59tw5Y6 HZEjLFAsZFQ4vHU7uW3f bGlnbjogbGVmdDsgdmVy rEnrAOgaWAjqF359VIPg dLysMk0HBij4P4Kn Svf0OHYfqBbfBK9duZYf BLfkRm2wvKdbmWqpDU3b KVXpnomts794IcGaj9ri IDEwcHQgVGltZXM7 Z47tg2N1DPHrAVRbIZO3 pIE4tM3ftCeemdjofQLb dDsgdmVydGljYWwtYWxp B745RMEthLmsCtWz eWVyOjwvdGQ+BE49uu08 D7TcWylvPjl7ZRDfFHJ1 pNT7yY2vAULdBKrux7L6 qCE9W6WwpeYcyg1k g7mcVXRb (more content not included)... Normal [facility] Physician Referralon 023 Physician Referral [id number] #1.00CD:127 Normal [facility] Ambulatory Visit Summaryon 0 10-20-2022 Ambulatory Visit Summary CINDY SYLVESTER :1995 Visit Date:10/20/2022 Ambulatory Visit Instructions Your Diagnosis Fatty liver Abdominal pain Watery diarrhea Incontinence of bowel Acid reflux Nausea Your Care Team Attending Physician - Trupti Mraques CNP Primary Care Physician - Bi BELL [...] Appointments Sunday 9:30 AM EDT With: Where: [facility] Sunday 10:20 AM EDT With: Trupti Marques CNP Where: [facility] Invalid Interpretation Code Abdominal pain [facility] Auto Diffon 10-20-2022 Basophils/100 WBC (Bld) 0.1 % Normal 0.0-2.0 [facility] Comment on above: Order Comment: Order Added by Discern Expert. Performed By: #### 2 303121, 6642399, 6735332, [id number] ####[facility] [address] [place] [address] Basophils/Leukocytes Auto (Bld) [Pure # fraction] 0.0 E9/L Normal 0.0-0.2 [facility] Comment on above: Order Comment: Order Added by Discern Expert. Performed By: #### 2 775270, 2366406, 4524156, 90807758 ####[address] [address] Eosinophils/100 WBC (Bld) 0.1 % Normal 0.0-8.0 [facility] Comment on above: Order Comment: Order Added by Lopez Expert. Performed By: #### 2 532051, 3060259, 8043990, 56136908 ####[address] [address] Eosinophils/Leukocyt es Auto (Bld) [Pure # fraction] 0.0 E9/L Normal 0.0-0.5 [facility] Comment on above: Order Comment: Order Added by Lopez Expert. Performed By: #### 2 062942, 1450075, 6874210, 51013876 ####[address] [address] Lymphocytes/100 WBC (Bld) 7.2 % Low 14.0-50.0 [facility] Comment on above: Order Comment: Order Added by Lopez Expert. Performed By: #### 2 580714, 5847934, 7461903, 72171180 ####[address] [address] Lymphocytes/Leukocyt es Auto (Bld) [Pure # fraction] 1.3 E9/L Normal 1.0-4.0 [facility] Comment on above: Order Comment: Order Added by Lopez Expert. Performed By: #### 2 475936, 9508401, 5881713, 53364839 ####[address] [address] Monocytes/100 WBC (Bld) 4.6 % Normal 4.0-14.0 [facility] Comment on above: Order Comment: Order Added by Lopez Expert. Performed By: #### 2 787681, 7039249, 3218560, 01791140 ####[address] [address] Monocytes/Leukocytes Auto (Bld) [Pure # fraction] 0.9 E9/L Normal 0.2-1.0 [facility] Comment on above: Order Comment: Order Added by Discern Expert. Performed By: #### 2 070011, 1806420, 3219282, 77226421 ####[facility] [address] [place] [address] Neutrophils/100 WBC (Bld) 88.0 % High 36.0-75.0 [facility] Comment on above: Order Comment: Order Added by Discern Expert. Performed By: #### 2 916364, 6324716, 0463812, 01645015 ####[address] [place] [address] Neutrophils/Leukocyt es Auto (Bld) [Pure # fraction] 16.5 E9/L High 2.0-7.5 [facility] Comment on above: Order Comment: Order Added by Discern Expert. Performed By: #### 2 984883, 8865023, 2368613, 52497000 ####[address] [address] CBC w/ Auto Diffon 3 Erythrocyte distribution width (RBC) [Ratio] 13.1 % Normal 10.9-14.2 [facility] Comment on above: Performed By: #### 2 633189, 3558452, 8784536, 61530134 ####[address] [place] [address] Hematocrit (Bld) [Volume fraction] 43.9 % Normal 37.7-49.0 [facility] Comment on above: Performed By: #### 2 146362, 5710499, 1859665, 85166191 ####[address] [place] [address] Hemoglobin (Bld) [Mass/Vol] 14.9 g/dL Normal 13.5-17.5 [facility] Comment on above: Performed By: #### 2 241172, 9609431, 2088426, 87317505 ####[facility] [address] [place] [address] [place] [address] MCH (RBC) [Entitic mass] 29.1 pg Normal 27.0-34.0 [facility] Comment on above: Performed By: #### 2 798663, 6098616, 2880252, 55149371 ####[facility] [address] [place] [address] MCHC (RBC) [Mass/Vol] 33.9 g/dL Normal 31.4-36.0 [facility] Comment on above: Performed By: #### 2 806255, 6192882, 6942759, 80646496 ####[address] MCV (RBC) [Entitic vol] 85.7 fL Normal 80.0-100.0 [facility] Comment on above: Performed By: #### 2 361077, 8288770, 0712820, 18418148 ####[place] [address] Platelet mean volume (Bld) [Entitic vol] 7.3 fL Normal 6.4-10.8 [facility] Comment on above: Performed By: #### 2 588234, 6619708, 9100240, 67573167 ####[address] [address] Platelets (Bld) [#/Vol] 318.0 E9/L Normal 150.0-500.0 [facility] Comment on above: Performed By: #### 2 482070, 5586199, 2807707, 21188212 ####[address] [address] RBC (Bld) [#/Vol] 5.1 E12/L Normal 4.3-5.9 [facility] Comment on above: Performed By: #### 2 778054, 8991332, 7780399, 49175783 ####[address] [address] WBC corrected for nucl RBC Auto (Bld) [#/Vol] 18.7 E9/L High 4.0-11.0 [facility] Comment on above: Performed By: #### 2 075514, 3735799, 3086518, 42528560 ####[facility] [address] [place] [address] CHEMISTRYOrdered By: SYSTEM SYSTEM on 10-20-2022 Albumin [...] 1.4 - 4.0 gm/dL [facility] Remisol Glucose [Mass/Vol] 106 mg/dL Normal 55 - 199 mg/dL [facility] Remisol Potassium [Moles/Vol] 3.9 mmol/L Normal 3.5 - 5.3 mmol/L [facility] Remisol Protein [Mass/Vol] 7.7 g/dL Normal 6.0 - 7.8 gm/dL [facility] Remisol Sodium [Moles/Vol] 136 mmol/L Normal 135 - 145 mmol/L [facility] Remisol Urea nitrogen [Mass/Vol] 7 mg/dL Normal 5 - 21 mg/dL [facility] Remisol Urea nitrogen/Creatinine [Mass ratio] 7 mg/mg Low - [facility] Remisol CMPon 10-20-2022 Albumin [Mass/Vol] 4.4 g/dL Normal 3.3-5.0 [facility] Comment on above: Performed By: #### 2 351777, 9498155, 5296817, 06378166 ####[facility] [address] [place] [address] Albumin/Globulin (S) [Mass conc ratio] 1.3 Normal 1.1-2.2 [facility] Comment on above: Performed By: #### 2 752129, 5678200, 9132625, 67255120 ####[facility] [address] [place] [address] ALP [Catalytic activity/Vol] 99 Int._Unit/L High 21-98 [facility] Comment on above: Performed By: #### 2 818751, 5763819, 3773545, 20618946 ####[facility] [address] [place] [address] ALT No additional P-5'-P [Catalytic activity/Vol] 34 Int._Unit/L Normal 6-46 [facility] Comment on above: Performed By: #### 2 574847, 7297147, 3312779, 30176905 ####[facility] [address] [place] [address] Anion gap [Moles/Vol] 12 mmol/L Normal 6-16 [facility] Comment on above: Performed By: #### 2 080079, 1151243, 5683524, 57588305 ####[facility] [address] [place] [address] AST [Catalytic activity/Vol] 26 Int._Unit/L Normal 5-43 [facility] Comment on above: Performed By: #### 2 404301, 3952021, 3795479, 05977222 ####[facility] [address] [place] [address] Bilirubin [Mass/Vol] 0.5 mg/dL Normal 0.0-1.1 [facility] Comment on above: Performed By: #### 2 062646, 2897702, 3917257, 38510849 ####[facility] [address] [place] [address] Calcium [Mass/Vol] 9.3 mg/dL Normal 8.9-11.1 [facility] Comment on above: Performed By: #### 2 402618, 9533212, 3553778, 51550514 ####[facility] [address] [place] [address] Chloride [Moles/Vol] 102 mmol/L Normal 101-111 [facility] Comment on above: Performed By: #### 2 234500, 7909922, 4653217, 73690102 ####[facility] [address] [place] [address] CO2 [Moles/Vol] 26 mmol/L Normal 21-31 [facility] Comment on above: Performed By: #### 2 348830, 6497188, 9746531, 08062453 ####[facility] [address] [place] [address] Creatinine [Mass/Vol] 1.0 mg/dL Normal 0.5-1.3 [facility] Comment on above: Performed By: #### 2 249511, 0554990, 7487335, 28847350 ####[facility] [address] [place] [address] Globulin (S) [Mass/Vol] 3.3 g/dL Normal 1.4-4.0 [facility] Comment on above: Performed By: #### 2 098166, 8781946, 2059384, 27102901 ####[facility] [address] [place] [address] Glucose [Mass/Vol] 106 mg/dL Normal 55-199 [facility] Comment on above: Result Comment: If t his glucose result represents a fasting glucose, interpretation should refer to the following reference range: 55-99 mg/dL Performed By: #### 2 610041, 4447029, 7923141, 16568767 ####[facility] [address] [place] [address] Potassium [Moles/Vol] 3.9 mmol/L Normal 3.5-5.3 [facility] Comment on above: Performed By: #### 2 081997, 9732537, 0700202, 52518707 ####[facility] [address] [place] [address] Protein [Mass/Vol] 7.7 g/dL Normal 6.0-7.8 [facility] Comment on above: Performed By: #### 2 001232, 1907696, 9827301, 19012904 ####[facility] [address] [place] [address] Sodium [Moles/Vol] 136 mmol/L Normal 135-145 [facility] Comment on above: Performed By: #### 2 489723, 9693503, 6512354, 28160221 ####[facility] [address] [place] [address] Urea nitrogen [Mass/Vol] 7 mg/dL Normal 5-21 [facility] Comment on above: Performed By: #### 2 373508, 8975054, 9743495, 55690072 ####[facility] [address] [place] [address] Urea nitrogen/Creatinine [Mass ratio] 7 No Units Low 10-20 [facility] Comment on above: Performed By: #### 2 734566, 8426874, 9776602, 01923377 ####[facility] [address] [place] [address] Consent for Treatmenton Consent for Treatment [id number] #1.00CD:127 Normal [facility] Gastroenterology Office/Clin ic Noteon 10-20-2022 [...] at 2 (more content not included)... Normal [facility] Comment on above: Result Comment: [...] vinegar, hot sauces, and barbecue sauce. ? [place] fruit juices and citrus fruits, such as oranges, mynor, and limes. ? Tomato-based foods, such as red sauce, chili, salsa, and pizza with red sauce. ? Fried and fatty foods, such as donuts, sri lankan fries, potato chips, and high-fat dressings. ? [...] General instruct (more content not included)... Normal [facility] eGFRon 10-20-2022 GFR/1.73 sq M.predicted among blacks MDRD (S/P/Bld) [Vol rate/Area] mL/min/{1.73_m2} Normal >=59 [facility] Comment on above: Order Comment: Order added by Discern Expert. Result Comment: eGFR is race adjusted. AA=. Performed By: #### 2 827481, 6678550, 4612720, 33769590 ####[facility] [address] [place] [address] GFR/1.73 sq M.predicted among non-blacks MDRD (S/P/Bld) [Vol rate/Area] mL/min/{1.73_m2} Normal >=59 [facility] Comment on above: Order Comment: Order added by Discern Expert. Result Comment: Time Signal Wirer mayra kidney disease could be indicated at eGFR's of less than 60 mL/min/1.73m2. Kidney failure is indicated at less than 15 mL/min/1.73m2. Performed By: #### 2 032265, 1604973, 8599044, 23693777 ####[facility] [address] [place] [address] Auth for Release of Medical Recordson 09-27-2022 Auth for Release of Medical Records [id number] #1.00CD:127 Normal [facility] Coding Summary.on 09-26-2022 Coding Summary. CD:[id number] Gh0bWw+PGhlYWQ+PE1FV JSuN82jvOWbyN9rH3WNM ElOSywgQVBQTElOSyIgb sKgVD1bvDXjWEGw IC8+XU3cQDFsDbviaBKk b9A6tMF5Z48vzx8nPWnl pVP6IKHmYiDmlaggq5ed pCm7FSbqUuneQnQc DYNtzF50FQL9vO04Ze02 oTUmoGTke6hlfVe0TwVl ZHYfZVB8nPziPNrpt3Zn LXCtX54vzCKek8K9 IGNvbGxhcHNlOyBlbXB0 rJ0pHPpklhnmt8lpvofh Swg7yl36yYUve1T2dBO1 Z8TixaX9OLZgcJZb JjopkWLLeW9nfwxwc9mx npgoGhUaSXGsFZv2HUl5 APKupHemCxHlUX34CEV7 KEKjbqDbI8HsOAPn wVslMaK5z7K2Tv5NR4CV ZhrtT1AWVRNPWQpniTT+ MP29ay93R1JbLyyaXzv4 WUMiUXZ1gXL7rK6d COJhMCxjk7M4gTA2W3Et fuPqla7mk1myMIJwYFyn B77zyZObr4E9QYHadZW8 CMKzaCchBaAhpT65 Oyc+XIGlgUbaf0OqRejm i3trq5aceXh6CfpkQHVl szSmoGtsZSV0d6QlMy2n VVIsjJL5cSO2iY2y LfRvVwT4VEccS058QuPk nJUeYejfR61zS6EinIG+ WEHyIuq2GXKdhKsoOS4b N9KzQQVwwvpykQZd dLylJR5uVHHgwehfTPYb kS6qRRPxJ1j0TtDdJkM4 EWhqF3NlHGMrtiikTn25 kE3tMiTzCzG9XJad Q0ZcyiI0ARNaeRVpATzo ICR7C69vy0N0SUJnAOXr HXF2pSW1kO0fiLmrhofy bGVmdDsgdmVydGlj ZMbnWVbzG230KUUnvDja PkNvZGluZyBEYXRlOiAg MDMvMTQvMjAyMzwvdGQ+ QXAzDAR2gIgkTPYk hPFaZNhgJk8mhZjkaWzk YO4qWKDbebysJSNoeZ4s TJAtsPAqqEygDF9pECXp dnqjh022YsPwVUT6 FGXfmJWxK6JpoM1vEgIk XRZlLXZoP1IymYVuOGmp K309YXhoLzU0WCDjpfLm O8YkHOZzoYayYeC9 o6O7Fy3Dv1NoakeeY2Yd jLWjTyYbJsdyYRw4D8Pk PjwvdHI+SD78GIOpPI84 AHk5PDR7lEgzHAdq QOEtN6RqoG3bUnZdLOMj ZGRkOyc+PHRhYmxlIHdp ZHRoPScxMDAlJyBzdHls XX6wVq2lAYPgQDHo kSmcsDWkWeCyk6iaBTQx XCenJI5soDbjA9ItlEM0 SCQmc3m4Ca12O73cY5Qv dXA+VUInqUR0tPI5 dK5dJqPyYfA6GWetA018 ZaOmvXSgNiedx2uhv4fx vXm8MiU3JDFvppIlgXhm XKM9e1UaMm59I29w IHdpZHRoPSIxNSUiIHZh lPbned2xdO4aSf7+PGNv jPH3nUA7zN0nGfSxIzL9 TWvhZ163WrJtdHYj Hawuu7nct2pxrWt0GiAy YBPdrhYsoIwmGPA2g9Dr Vj71W2QuiEuiv8TzUis1 gq34zWHhk0P1uLL5 O8JxTLIvdsemjTUpwFuq IN5nIQNgokvqTMRqaI2r WMYaP7g7HvNcQcZ3GPdb Y5CufsT7OIZsnCLu ZUYuoSFXkB3wzugzo1rz yetpNeFkYMPoCQt4QSj1 IRUxcMwoUvCgLOR5XaF2 SRV7cLEkeD9btOgq ewsixP7lOhe+IVF5dGBq bCAFQG6nEtgscLF+PHRk QVX3nNskOGmgGFRdgX4z HEDdA9r6JtWoVhB4 CQenL3IaetR4HYCxmDGx ZOGacNJKxP0gchday8au kjtpDdSiYRZfXSp9HHg7 LWFsaWduOiBsZWZ0 UkW6XYU8uMTmcD2drMwn azdbgB5fZmy+QmlydGgg MXH6CAx3E7HqAja2JMGx lSrjBH0uqMCzDFjj Gu4jqKjamJhgTG3jCMJt qpguy024SnFlb6ayHVGd aJNmXMdiFBL9W74xu9X8 RYVzCMIxNEZ2pJH2 xH6rsWcqeczknTWagNaw cmJdqMpbSQevGWlhN352 YEYfpEmaKiRhHXh1S3Kq Egj7FCBwbAdbMC8v bTTjLRzcJi4vwExpuAtz AW9yKMWntysdr664NzEo q0bkYHNnaLXmTFypTFV0 H90ki3E0HKGjIPTt BSR8fTZ1oY6zgVzxqgno bGVmdDsgdmVydGljYWwt AUxwO584YGSufZhvWsMy rDu7D9JhIaz8SFNh rPfpZM7noMOdMSyoYg1e iBshzWkeIN3eEDJlpbpi r112JlAdz6gaCXNfrVLf DUslPOC3V01kt8F8 UFXjRLUnRTY0aFS3hB6t bGlnbjogbGVmdDsgdmVy lFkoYNkpDOwhJ745VJAe cDsnPlBhdGllbnQg NGylSQb6D7OdZkhjaFO+ EL39KFNgLI03lAPtkGCn w4uphVd0GsKgPOWlDJS6 pWqoZXlyi7MlTGPb U54syGYyi3N0QRIcmDcl lUFrXzXreEG2sG6xROca seoyq6shtzlkOopxy2lw zh55nJ87S45bECjv ZHRoPSIzMCUiIHZhbGln vw5dsV5hGl1+PGNvbCB3 cVY4rO0sQXKkGmL5CRhs U492XbEcvWNkCfst y1iwn9xriOs9SnD9LNVk htTbbTnhSGE5n3TxIv12 E11eIRipNVTfXECeSPAs MJLwvKjjvv8uvV8b Ii8+WTWztOK8hPF7kP0n LxGqNqE9LCzaA442ZqZf rLHfPzsyE85wC0HamDI+ NHTmJxc6MYKhkXlr SL0tvUIzUMvwOp8uKCE8 GtYvCsWqYZkmN4NfRYCr eujssvxujJG4AEWyWROx wZ22Fs4ufQkxSJNw oZZVmO0sxwari3czkgch GfYkDNYeTLt3JZj4IMJr pAiqWpKjPHG5FuH9BCQ4 aOGbeP8niMamqirg aS9bQ1MyNVLiqmobQz08 lC2kJyYaMnJ1ZUtgNfz+ Ek4RFFSLS8iMLEZEAF2W QVMgRDwvdGQ+PHRk MOI4mOnqAAcaSIKjaE6x TSRwC6j6TmRnZdM6KZnl X1UyVVNzbrcpMk19fN3x UzPqUpW0EJqkU9Sv imO0ZOJumIAgMPpsWKY5 F20jh7B7WHMvKNGqENS5 oBP6gU6dsSldlqllzFAr dDsgdmVydGljYWwt UAmgQ588CMRpnFzeYfEd ZvR3BkS3BHR4Y1FqOci0 FZUybGpbLM4rtJUwGSwr Ij5yyWkmbEjqCS4d OOFfkybnWRIoaC6pKUAf qZJulZceXM9jRJRnfkhm f598KfXaIJV8COPdeWPi R3AjsR2tGoPrLMEf BKDoT5KmjCFnBWxmC951 UJmcGhV1CSQecrErY3To IIOwiJekKdP1s2B6Cn8d NiBZZWFyczwvdGQ+ KKIxBCI9xOqrSGpsUJAc sZ3bBCPrO3l3VwEyBfL5 BLafJ5PrDDNukznrBh04 aW5tMlLwRrE5UUlz G6WrhzR2CKNsyGCbOFzp TPB9S05hi4A4UDFaRNXx HJH6bKO7fR0ujMgdoynx bGVmdDsgdmVydGlj RMrjMTvyN006UVZtbIzn Ne4rjLF5L7HlSpi4UZCw iQvqMF9lfFDrIOsyAa7i qQtytSybKU6hSQLb wgjnFSVmfD7yPXSdyJYy nMudBZ1kJNVgteyhi511 PyXjPSR5LCGuyHTvR2Yb kO9zBhQzJTFxIJIw D3NccBAyFAqyB051OCmd FzT4BXRlzvBwG1EjXODi hKurOdY2g1Z7Aj9FsMGk NAOdKB61PF60KC42 I8PhGbspuQYtgKQ+PHRh YmxlIHdpZHRoPScxMDAl WzGmxQorIK5hQt7wKJMm LWNvbGxhcHNlOiBj l9hcHOAqWKsoHE7vyOnu E1UyqCU8YTSvl2e8Ty65 Q06fX5VuaNZ+PGNvbCB3 xGN0mW2sSiHhQlN1 GGzvW190VqHdrTSpCnmv o7kes3yhrAo9JdYrXJKk nwKorJsyOQH5t7GbLw74 J03mWDozHEFbWYXn BMUbUVEpvDjcay6qsR9i Ii8+TDOcyZY1yEQ7tS8p GwViCwK0LIclR392KcUy wUBhTsgiM97yS9Wi dXA+EGBtKht5FOImhEjm KV9ylOPqVKqcRj2pTSJ4 EpKrDwMnJPdzK7TuGEEx ewjvjtqdsCL5DXPu ELJufR51Gw0ozLugEn4r JJRvGZD4NBLgnMQrL7Ge iH8kEdNqHRJdYZMuA5Fr eFGmBTuvM567TYen WpA2COAtgpRzC5MkEDQh sSucPlK5b8C0Qg1YrWsg xHMgBP2oZxFpTAl3Z4Yl Jqz6CGNaiOvsCH6n yZEdRAptAx6vfNajpCro XA4gDLOfhgruz555YeEp x6tcLTJrrMLvGOzvVSX8 T85qf8X5JJBjOOTc JEK1mQA4eQ6xzXuvttmd bGVmdDsgdmVydGljYWwt ODuvE834KBKtfNasUdZM Yzv3Q1AzQei5VBEi dEdfCG6bwHIiHTwqXv1i bUfqsFuyWB0cDRWnmcdn d928HwMra6yoCZRzwYOa MRxjKWR7V08lv7Z6 TBYmYVMiEBE2sFM5fX6i bGlnbjogbGVmdDsgdmVy gXfhAPykSUicC104XBFx wTgqIa3FMwr1R9Kk Dun9KFTnfPitCA8wnNRe VHshKa7ysVrzwKqfMN5a RMEswenlt503NbQhz4jv IDEwcHQgVGltZXM7 D30iy0E2HOXzCJSfGLA8 qBO5fN5qzXdrrfsmvJFn dDsgdmVydGljYWwtYWxp D174IOCymXbrAjNi eWVyOjwvdGQ+IF80cs16 K6KtGivtZfs7UFXgHUP5 lHU2mR0hIZGaBUoyn5S1 lNQ7I7PqecLblw3t b2xs (more content not included)... Normal [facility] Postoperative Documentson Postoperative Documents [id number] #1.00CD:127 Normal [facility] Physician Orderon 09-15-2022 Physician Order [id number] #1.00CD:127 Normal [facility] Consent for Treatmenton Consent for Treatment [id number] #1.00CD:127 Normal [facility] Coding Summary.on 09-06-2022 Coding Summary. CD:[id number] Gh0bWw+PGhlYWQ+PE1FV ILeN28xxGQgiH7VV5fYG U6EURBXRYYWKH5OSG2ha QZ0XGjfQ1RwwwTs UriinVQfVU14PDg2AMO6 qNhlMYdobX5dtGKiY6d1 LbVpKO56lE29JBnrYYZv GhQ4LwIvyjzkpHIy J9bgAfQkpSZvWfq+PHRh YmxlIHdpZHRoPScxMDAl DbDkoYobDK7oSz4fTTBq LWNvbGxhcHNlOiBj n4ekYPZmODmsXW5gdCbv H9TsyVD9DHEip0u2Lm40 dHI+OYAbMDZ2vEnfOElh q037QhYgp4xbHOO6 sHJgBHqsQCQ1M56iq7O8 FIIzBUSjTSM8sUU9pN3h hDobyescV5GvkGOjCpW2 OAC9qTPzzF4bjGli mdboxC1eWnu+C79KNJ0P WBAVUE7HWki7U7ErAwgk dHI+SX19HHErKL33gTNj oCMwi9ccmLi5TwZd ZJWnNEX5wBgrMLdoy4Cj SMPcT01ezHHmu5U0CEUr hLtdrIWlYzLqvPP8vE9h KJicjxtsd9vqfino Soyjr8kuef44iB31U65l YJybQMOuHDZ6JWWfSAFh gWnoxl2ukY6hKy4+IDxj o3tfk7aewTj0XaGf CATtryTcsFreOXT9f1Qa Pa29R2DokRzxl7GaOek5 sm87mBExk8W4wLF0QBgw TYVykJ1gHDdaDxU6 TZKuGxOeaM90dOSlKJfd Jj3lzMzvzOdcLU7yVFRv vbisKLLwxS2rKLEqiADa uZchEJ2iBNUggier o385DjOoQLN8VGEqjEFs M2EtnI0pKaNzKUMoFAEv L5IzhSTkIHihD018RNmp PzL4MAFmcgHaE1Tg SAMamFqiDnG1s8U6Nk7X q1SckobwCDS0BWdoVDJo BmBuLbMkObE0J3AfAif2 BXQlrKbfUV4oF0Ja CKUwpebkseetnTX4WULc PJSyfL57mFDkTUiwCq9w k4F1w480YCEgEIVsdM35 Jp5nfTfiGGGqnNJM xG3tfndru5gqjhnvBiSj HJZxRCa0ZZg3CDYtwVfb NfMhICF9RrR9MXB2eUMa eI7lrSgwvrlqiU4a Oyc+P86mvU5tDUP4GSV6 vficGSRumzLuXC85UH91 H8LmQvofcBQqjMM+PGRp ueRmiVaxQN2zOpBn m8nfg3NkCIebZ5NjZUFz ASbwHwm7PRQpKPT6zPL3 rT9kPAMrDPtjr1K5zJA8 Q3LeduPuwf0zf0hn BBAqTUoaZ19mxAAvq4B2 QIXxcFN6EJUvnYghZrMk zU02Ujs+RTMdhXlpe2Op Ohqce4vvv1romZx3 IjMwJSIgdmFsaWduPSJ0 w8MlJl33X40mGRsmJQGj KPJdAOQrDMIznPhgmr0y lC3fEk1+PGNvbCB3 hEQ9vM2eSMJiVgP1BBnv D847PjGzrLCsIvcuk6ry f6rwxJi2VuNvGCEignQb wIsoSTI0r4AlJu94 E28nFNtiRJZjBNAwDHRc YPGkpPiczr0maK4wWb5+ HK3ct9kedi54tW81dKG+ LJCnFCJ5cIemVOud ATEaoP7iOMjhClL2FAIq LzNdpP99uHDvCGhnKb9z tCszaVwhOG3xNRZzftpb f547SzEpa8sxYATo xSEeWAoeBEM9T06bn9T3 TCYyUNAiZOZ5xCC2pO3u bGlnbjogbGVmdDsgdmVy jBkiBCduCOzvG861 IHRvcDsnPlBhdGllbnQg EtOeYDa7A9CmHhx0TRQl wBnbPM7yrDFhOHfvIz8q uOkyeAwhZI7dJGBb ltytd626WgWwu1qsTDDk kHFiTKqcYIR8K89yb8E1 LXDqRRSuHZO6kJF1kY3q bGlnbjogbGVmdDsg orCpfIqrAGdfFVejH484 IHRvcDsnPkJpcnRoIERh qQW5IW72HL56bBZyu9L5 hLW1P5YjYKGtprgz eyjjrMO8MYAwDNDddQ44 Rw7vuZsxHz1rJRXgQQQ7 DMQjdLYuD8GjfR6hQaMc PNFxMSVjI2CvfFYt QWdsK103KDeoLvY7EQCh yoIkR5BhUSEejVmmGhJ4 y0F1Jx2KP7S5TZ73VS41 rRNtf3T8wHY7K4Sh GQDihjngkhfcoVI8TEMf MBAxbP85Vl3oePqmHu3u WBZbKTX6SIBdzDIeM6Nj qR0gXvVhGFAwVGMk X8WmrLRkASsyI622OVpm MwZ1ULDesqDxM9IvCSEv zJvkZgI7p8E8Hv4LOHb7 WH27ZX17pLKry3T0 rPW9I8IgCDYkczcsxwrc hBT6XYAbQDFssI39Ab8r dPxbAw1eDEZnWMP2NVXb wPMuL8AwfW1aEcEd WHKwQIGcL6RhzOJaQQlu B725RSpgMgJ1FYQfhuZi F1GqCFMsyDizXiM8o5D3 Ug1TEKUbVB81JWP6 bMM5AH03OV63M0LgIrcj dGFibGU+PHRhYmxlIHdp ZHRoPScxMDAlJyBzdHls MJ2oRm5mRSDpRGQe mGtkgVFmKjRep3hvRIOe JSxvCU7fmJnwT5LthKN3 SGMkw6g9Sl04A25oC9Pk dXA+UIMceBK1cDY7 iM9jRlZdZwL3JSjwC375 PnQscOYbGfthn1ebm5li bGj8VkK7FOErpbNyhTup NGA9y0IzDh80N86t IHdpZHRoPSIxNSUiIHZh vCevns1xzE5zFt5+PGNv qSV7eGA0eN5kIeNeCtJ1 TVgjM523MqDwtASg Qcahq9kby0mhhFr7RcQx NRYqojFaoGvuZOP2l6Gp Dn55V7SqcSltm4QaDxc0 tx67pFYcp9G6zXW4 Q9BiUDYcqaitbWHpwAtc KF7tSLFnregsJMYvrX4w ZAPhU7u4UuSqOmO8CKck K7TcgqD4ETRdrSYq OOycSGD1M42ru8D2DPCc HJObKKT7lRN3lM1qgExa bjogbGVmdDsgdmVydGlj LIucMUylV457BAPh gWccAVTzeY4bZOEsmPJa uDzeZJ9gLAWkulqwHoIR QVRSSUdIVCwgVEhPTUFT GEU9J3CuJqt0AVYx qVvqVM1quDYdPSkwKd3w iQqhhGfbTB7lLVMjbnca DANpjF4iAAGsmVFhgUmc YM0bJACnfhnbk981 YhFvKKZ3BMYliTFwF4Ll pG2iIeBuNCVyKHNyD6Yg fOGgKWbaV790UFmzRzB5 GCMnknMmM1FfOBQv lEvfIqJ3t9S9Uq3lLo1o MD7dDOp5YA77DJ73tYHo t5W1dGN6B6MlKDYkdoif tfahaGX3KUZcZYTh tS92iLFzOZcsZh9kl3P3 o613ZWDtRAFveE37Sv1z zGnuJSDasEARrC9qnyhj c8qadqwrBlLnDIWa RTs5JDr9JYMouMriXqAt VNA8YcV8LQX5pDWawC3p dIqtgtlzhH6qTrr+MjYg YDRxfhW6K4DoMsr1 WVPmtPjdUS5uzNOxNAda Vi5thDmokOogOL4rHBHg toqqFAAwbS8rPVDbbPTt kAniCG3kBYYrckst j199GiGxMPB1BJTfwJTx F8TxkA1mQkGcHEJzTTAc B3RgmLYqKKobX544WGhd AfA5VGXyazTqI7Fy XJXonOfpVxK1s1K1Ne5B ZAskIQ71DO46tIGhv6D3 ePB0S5UjIYSpjwvakyuh zXT4OJLdHMSjpR55 pFFuLYjfQu7xc0B8n450 XFSrDBWyvF93Rd3tjWay PEBivLTEbN4nyldvd2oz cjogIzAwMDAwMDt0 KAw1CMNldVbzViGpPXU1 XwL2GCZ4fRFkxX4amLjt bjkloX1rUzy+F6H9iCN5 aWVudDwvdGQ+PC90 cp23R9PaUqykJbc6RMXv STJ4xMO4bH5mCCIwXQdk f5I3sOR1F9JhpbIqij1x w7uxYVIzCLawP96l uRRid6H7IUYdqVO2CLGa fGgfSaGeoS40Zxd+PGNv rUejf8QiUtfzc9svm4md fGp6YnUyFYTghhDg sYsgCXQ4w2DmLk82B84b IHdpZHRoPSIzMCUiIHZh zUpuwg6nnR7tDs3+PGNv tWY6lQK1uA8dDkAx XaD0QXmdU413OyZsgJWm Lxdgn0hgm4mgsAh3UwPq FHLmexXvbIhjZEN0s9Ev Un31B0LeoXdpq9Ov Trs4jk28hGMov0F5rKB7 I9XhWWIlmpacjTQaaPdn BN5lBUUbrbthYHAkaS4w OCHyD1y1NhTgYyE2 ULbnD5BotoI9EWIcySXk TETnnTXHhB5qcejhb9sw fwrvStRrRAIwBPg2YRm7 LWFsaWduOiBsZWZ0 FjO6QXK9rBAnfT2psJwc sfifwM4tXux+VVz0d6nd iBPdZF5rkWW6SP98IU59 cVFsa4W4cNO7Q5Dr BNXnadlivrfkaYB7ANOw UMZuzN86Up8ncOmgHr9g FHZbRCM2OBAbbLEwN2Jc cQ3xZcThWBJoIZDt M8OuzKFyLUyjZ775PMfn ErM0VZLylfYgY8SyVHNe vAarKiM4h5G5Gr1FQX09 AW66TK45kNXrr2P7 eOX7O8SrWVIdihzebocq eCN3TSDlUAEkcI19Vi7l zOnjTa6cREMgEEL0JMNa kQMvF9SdyA2pXnDi BHWhQESsO1HgzCXxZUvo M917QGbeIjR6PGOctlPg T4RgBLKvzGvuBbY3l6W9 Rh5CNn18DT49ZG72 pYNhy4J0jTP2P7ExUHDv ndjpbbpfcLY0LRXmHTEc fX25Ul0ubOaxGv4qKZHb FPS7NTFesNSjB2Ur hK0gNpVxZZKzKVItP6Zi yKOxITkcJ222IJryRbL4 VJTpjdLiM7DePYZigUkb BvK0z3B3Hj7DQXtn kft7X4WlZbcfzMW+PC90 WUEmXF92xBTowAXif1df vHw1DlPlHDKpHAL4eKzj QZtgt4IiUWBlO31x bGFw (more content not included)... [facility] Consent for Treatmenton 08-17 Consent for Treatment [id number] #1.00CD:127 [facility] Consultation Noteon 08-29-19 Consultation Note [id number] #1.00CD:127 [facility] Physician Orderon 08-28-2022 Physician Order [id number] #1.00CD:127 [facility] Coding Summary.on 08-25-2022 Coding Summary. CD:[id number] Gh0bWw+PGhlYWQ+PE1FV EMeE23mbOInoW2PE3sBA A2URCKSFKKZBX7JRM3kh WP1NYknV3DskqIe PjpxvJKhLD84DOt1RPC7 gWjzQPetuW0tuXJuX6m9 MqMjVV62uM59UZryDKOv WeX4LlWsxpxbpQSv S1kmOpOeyGGkZmb+PHRh YmxlIHdpZHRoPScxMDAl OoUmyArnHA1iJj4hLQOy LWNvbGxhcHNlOiBj x6lsPDXcLHzdVR4tzLuk C9GndZP0TGBbx0h5Qo32 dHI+ZOGkMWI3pEfmCKiz f222IhOko5jtQXQ7 vQBhCMgvIIB4B45li8L1 LGRdLHIaBFN4qDM7vJ5z oTrfswprJ6FzpFEbWuQ2 JJH3gSTegG6yjJfi bfgfnP7lLdv+U03FJS2O TOKKRK2JIwr7R7LqQnmm dHI+WB31TRUtYD07yVEc lIAip7zgnPx6ElFy LAIlFDH7rXqrLAqcj4Ec TXKsS20xpHTsw6C7RXHb xSgwyIXsObFmyHO3pG8z PCeietwuc6oxmsqb Qrrps6oryu17fV66K39o JDnnJRVeTTI9SUJuSMTy gPhxps6ftJ5bSk4+IDxj j7cqg7xvgJy1YaYg SSTtchYbgMhbVVV2b5Tj Nh04P8VcnEjvi8YtMgz1 bn50dKDus2B4pYP1QNja QKLhuO9dHRutFtB9 AIUxBoKmlM49uVYaOFmo Dc8bjJsggPkmCM4fJCUq mtogLGXzjG3pGVMlxLEs pCgdOR4qKDXbmrml s807NhQlWEB3FSIawUOe L3HhpS5fFmOoJEEcDFEw I0XknOZgCPkcD228UMlr VaS9MOSarcRpH9Bk EQUymDjjGuF2y6X3Lu9B z7DtetsoLUH6KByvWGYh AaXeKgOpTrT0F5ErBgc5 BYLysRosGX8qY7Ll DTCtfasivexfsFF0UZWv IFVoyV73aMAjYAxvVt9l e8H5d408YIBwXLEtsC52 Ko1afVbaDOCylQFP qS5ampfxn5kkzfctVtOo IMBaYWn4IVp4LQPtvTnh RsKuPVL5FuM0EUS6fEOd sM8bcHqcgdrpaR5b Oyc+Q50pcG6lUVG6MBS1 ajwvRPLotlDiQV93QV15 Y8UqLxghlBZoaSP+PGRp qsVogXvcMS5lUcOe i1yjj5OaXArhU9WbSRUr JZfkPvi5TQEmXVC9jOJ3 lC8lIAGrORkhm7L9aJZ8 G3OocrNbxd8xt1cl FFSzMZibC72dpCKvd6D6 GFRazZW2VVPuyQrjJaJl aJ03Myu+EGAojLfsl0Wb Qztxx8lzd3ljvNn4 IjMwJSIgdmFsaWduPSJ0 i8AeBp10W34kHTxrOCIc UBDiHZTgUBYpbBlqdv2y jE9jZn9+PGNvbCB3 cBK3tL5vRUAgQdY7LKta Y488EnUhyQTbXhxjs2mw u9mkuAv8IuMmXNQqdpFm eTtpDYX5x1ExQw49 J62mILidMDOrMGLuMHGp VIQroFeqla8qmJ0gOf9+ HG3kq7xnit58qF86kQE+ FJTaLQO0pHqnEOhz HMMhaC2gPVneVaE1XFBt EgGdyZ21rROkZShwIu3t rFxuyVnuAM2rYUFeyhnm d225LhVwu7yvHNVq oBIkUCclUHH5W72hw2X2 NOEoXEMyMMX1wBX0rT5y bGlnbjogbGVmdDsgdmVy fCfwKWxsGVvrK244 IHRvcDsnPlBhdGllbnQg UsFePAo5Q1JqNim7NYOh lQjpLM6cxEUxUOijXz7p kEkmfNttJW2tJCKz kplgd901XgBdm7hcIEWj gGCpLHaaUAJ8W26wt4U5 NPOmUPYaNVU1iWG1cC1o bGlnbjogbGVmdDsg kbOdxFpmBUfhSSbvU029 IHRvcDsnPkJpcnRoIERh fJA8XZ70RI76rCHho0L1 qED5P9DkYXYjyuqn giolnEZ1EGBjQCBdlY64 Qk8spGkiPh4cKBAlULS6 NQGgvPEzS7ZrwF8nOsFa TKYfMHElB1ZuvWRx WMfmH289XFawWdN2FGIv ojPjQ9JzACVlzTrkBwO7 n5Q6Vb5NR7U8ZG93BE18 jXJrk9Y4nVP5O4Kl GKRzvvqncotusSA8JBCn MHBkwR41Uy5udTskQo9z QEAlLDU7GVEntTDwF5Nu iK2eYlLtMSKqKQXa R2HfiXIcIOpbK401VJwl GsL8JTSjqySeE4JfCFLd kYpiLvU9m5S2Nf5QLJs2 MB71ZB73kRYsl6X8 dAY5I5YvQLKyzysomqqz eMJ8UKMyKYXyvE87Nn3d nLhyTs9uKJFuJPV7NUUs vSPjD2SbmG9xByFu KWYbMRGcC9MwmCCgPMut Y632AExbOlM9RJEdksVj L6XoHVHxhJpxZlN3f1G9 Lk6BPNNvWO92AWT3 bML3WL37EW33G9JzMcvl dGFibGU+PHRhYmxlIHdp ZHRoPScxMDAlJyBzdHls JL9xLq2gHVZrNXMn uLfxdLFdGhOfr0aeFWDe ZYssEM0hbAlyQ4JwyGE1 BLRze4d6Nu69Z83jC1Pw dXA+FOBjzKO0qDT7 cD5qVcVzAlH7MYjoR378 YxIcuJKxQjxxo6xxa4qo oLv6MuK9KHZewdWalRgz QJK6z8BmSl47B59o IHdpZHRoPSIxNSUiIHZh wXauhb4orM7aEc4+PGNv wOM1oYI4tV0iHrQxZdJ8 SHrpV700LxEkfVDt Ileai8akb9ufmIs2AfSd QBGgioHgsBheROC7v1Ji Yb17M5FcmDlus0WpInx2 rr85kCIze8M6oDT6 N0JoJAOtqrcakMScjUtz UE9rAVPnvjjiQIGprV5v PYLqC1c7OgFxWqB2FTfj V4UgicX7JQUkyNMw NJabTBT8E56bp0S1ACIm ENBlZES1xNU9mM7orGda bjogbGVmdDsgdmVydGlj ZPpzRLxdB284ZTEf kDkbMMJlkV5xWMJpuIVh fVtgKH4lSDQswisxWrGI QVRSSUdIVCwgVEhPTUFT HOD8N9XnAkb9KMQa bRknSR7gjSIeSLlpUv5o uVjjvTlvNE2mTHCuowik RLVryR2yADVijIUggEjp EX5qSKBljkusj791 SmLnANI1TJSdlTLfZ4Fa jE7fUmZiVLKfERGvL5En dUSbKBfwV409HGyaVzH3 PHPkfrFiH6RbKXWr kWwrMrB2m1U2Hk0fXs6y XN0zMCr4FQ30EG56kYIl o5N0xKN8E2TqHLMkffvz lqaoiPW3MSXaEKVs xH30lAClGGhvIs2vc6A3 n584AKLrDRXgkC64Ud5o zCauGNJwjTGJuC2xquxw a1hiqzwrPiIsXOCd VBj9EBi4BNFybKrgZcFz AVJ1PfB8GAV2qMWckD7q tVkusanriJ9yIzk+MjYg LLXkrkH5R0AmIlw4 XTTopRkaVS8brYDrOCmi La2rcAjawVtfHZ9kFBQt ishjWYBnfG8rWBHxyPSq tTirCM9oIBWnbxuh z263LkZhNCR2HVKmyRVm X7UweK7rJfOiXJFbTWYc V3ZdvEIqYDzrM970GWpl TyS0IBVolcYkH0Rk CGWdmLczGaS8e8H5Eq0I XIytOO68TX62fBDac5G7 mKI0I5UjPUJcjaibxrqm kRK3WZTtAWXceB48 vBPwPLsvEe3td3C4g089 CJOjXBNgeS84Xd0kmCfp HXHhuCREaH7jtdiio2xn cjogIzAwMDAwMDt0 FIx6FTUetRghDnCqUTK3 FaN4YAE8nLEtvB3utGca henfoA3cLbn+W9R8jTA0 aWVudDwvdGQ+PC90 ow22H9KuGaeaFih2YLZq JKA6wBY2lM8bSXViTVks l4F8sJY0I7WsozSlih8g a8odUENzHHrnO13b aFOvs7R4BJLvoGV2MDDl oQcfGrFboZ59Oqa+PGNv mZdmm2UlIpihw9cjn4kj rYk7TcYmUZQbfiDr sIauANA1x5UmKn84I80e IHdpZHRoPSIzMCUiIHZh yOkmwj5ijJ6fFb6+PGNv jHD7oCY3uU4dXxKd ZdG1JWovZ947FdZxwJWc Jmgwg7myu2dunFr6KuLh YBOwzpBqoTtjNAB4z4Ky Jr42S5OqqJyfy5Xd Ylo9aw08oMFiu8T2lMY9 I4NbNLJcarwmnZJreNop TB9hKKQdeqoeHZLxcJ4a VODeX1w4PiXmRcD5 BNgnN7WicjE3MWPlxICp GBNmrKPVkC3gnnlww9ek yvuyZyJgHEZnAWx6KVg0 LWFsaWduOiBsZWZ0 OnO2PPT6kSYxhB5imGwg urwgaU9oGuk+RSo2m0hc nLHbKU1ueTP8LX10XJ30 zLEdu8O1sSL5Z4Ak TZHneghovmevpFR9PDIi CNGytI08Zp6etGxxCu2p TVIwZZH6FVLugOQmB3Ms oQ5xYzXlVYAxPTNc M9ZtfSGcFPioI798QFye YeG9YDEfkrOoE2WfUEYd bHvjFkP8l4S7Ch3MGU25 PE86UO87aMEje1M8 mAJ4F8UeQBLskhgleqqp dUV8WARiBVVbdE93Fr5p vXffRx7mKVTsDMG7NLEl bUHkW2UvvK0uVfQq DFGsPLXhF8SneEWmROem D516KCdzJgO7WFAlohUe R9UjEQFziTmhJqQ3m8U2 Ur5JJv29TW79MH15 aCWiu4N2sHY7H4NpOWSd haxkkssqgIE2WGAmTLQs zC56Ym6gdDehTc6aUQCn AJF4APRbrLYpL5Ov iX1yQhDoXYOpAXTkV0Pc dCDwUItkJ876PIsgNbF0 VTIwpaBkR4NmBVYxbEpa NaY8j9F6Yb8RPSjb bdw6K0SgCzktkWZ+PC90 IIYlPQ73xJKvkFKaz1sv pTt8BfHaMUYvAJU2bYlk CKslg7SrXTMwK30g bGFw (more content not included)... [facility] Consent for Treatmenton Consent for Treatment [id number] #1.00CD:127 Normal [facility] MRI Knee w/o Contrast Righto [...] DORCAS Technologist: CARLA Technical Comments None Normal [facility] RAD - MRI Screening Formon 0 08-21-2022 RAD - MRI Screening Form [id number] #1.00CD:127 Normal [facility] Coding Summary.on 08-17-2022 Coding Summary. CD:[id number] Gh0bWw+PGhlYWQ+PE1FV OJxO89cvKJbzF0AS9yEG F2VNFTDFTOLPM6SYY7az KW0MBodT9AzkeYi WraqrROvMR98UMu1SQE2 mWllXFppoO5wyKBvE8m4 VsCsQO61vF76KEusTZRh VxT5PgVvlfmvbPKj H2kmKmZpqZChSrj+PHRh YmxlIHdpZHRoPScxMDAl ObBblBynUK6iEz5aDRJt LWNvbGxhcHNlOiBj d0haWAPeWJwzTY3meRkx Y0FynNZ2BGZru6m4Qg81 dHI+LHBzHYM3oBrwITwg e371QmNym6agNHF1 oMFuCTdmLIV8S94rd8P3 XODnFURcSRL5xRZ1lH1o eUzkdvfdC7QeeYOzQfH1 ACW8tFFijJ9beIav oudtvG9lWln+U15BOZ4A XVQXRY1WQsb5L6FxCzhj dHI+KD89SFIcLB95jTFb mHUnn8ubfZc5UbOe BCJgIVP1uJaoELrrm9Oj VIRzD15atEYig1M6YWQy bBgcjVPiTyTxbCF6zO8s OEfffqfvn8yvqxci Xjasy2zvun68dN61U28r WRkjKWXdHKC6CSYsOKGv hRcjib0wdD9zVf7+IDxj b4lbi0udzYc5UfOf XIVarvChiMbcSLT4d1Iv Yi07B5MmxVigw1HtZps2 qg35wLCjb5L0pXR1KZaz SLWopW8bOSgiYtF4 WDSmLcWvaV95pCQeEXpf Fh4hcWpvmAuqOK0aZJKl zepfDNHciN3wSFXpfZOn yDmrBX9bLORdqzby p557DxFzJMW8YWFatSBo X7ZecY8gHyJaXFPsBKZl U1KdvYZmTTlmV132LTlw UoD7KRSjweOzC5Zc VPGfzYieIoB8u3B0Ed2S d6KlkcxgLVG9KUajFHLj NpOwRrDuXuC5R4OoMql1 NVBryEtxBJ8rF8Wx MYQnlmwvrgttyWS8MXHm NJByxJ90rAPsRIroTi7z j6N9f221RNRzVBKniR89 Cj3ryEriDSDzxWCD kF5udmfre9odmnusAaAu KUPaCSm5IZb2UULdlXim LpVsWHJ7LxG9GJR7aOJo rH3ptWclqrhghJ4l Oyc+H33tjT9oODE7BCH6 xpixLKPuhoAoEJ62PF62 A5BePengxROoaZN+PGRp qnZplTxmIP0fAqFc t6ahy8LnDGyfI9SaKGKr XUuhLxx3XJKoUNT8iDO6 oU3rPAWgAMkjn9W0fSM6 X4EgleAlcc9lz9wx HEDkDMmwA39eaEBjd4T2 THLmrEV7PRQetUjbExGh rS80Oop+NRJhqMvbi7Do Ysiuw1tjy6ohvUy3 IjMwJSIgdmFsaWduPSJ0 u3FaKo55W14tZUfpYHXr ENUeWVUjTATtmPawwp7o oT2bGr0+PGNvbCB3 oNT9nO2nABOgPwM1NGae H070NrXabAUlKxyzw1vt v6zesDd8YwOtQPSjpvNa lDvwPSR4u9OuDf31 M11yIFhkPYVjRBNzFYXl XQQwsSirzm9tlX3gHr3+ UD6ik8tzex14kG55dYI+ QHNgFUS3vNkwKQtl UDYtrT5zDBfbLuU0AEFy XsLemP18iLLySImaVl7u rUwyyAstIK1xRIArmfpn x181EcExv6ygUZBi pXSbMTwtTYW1T05tz4I4 HFGsRLQbXQS9oZE4sC6o bGlnbjogbGVmdDsgdmVy hPbhFZypVFloU827 IHRvcDsnPlBhdGllbnQg HpIbLQo4I4HtTtg3RKHs yUbhWT6aiAHxVTkyBf4t jHfhuLeqVJ5oVSHs rxswc857GmGzv6rwTQMs dBVwERdgCAJ0O94ke7W5 PYGmHXCuOML4zBP1eI7v bGlnbjogbGVmdDsg xfZqrBhgPSloZUxqH855 IHRvcDsnPkJpcnRoIERh uPZ6GF50WR83zSSwy4A1 zTU1R7QmFBWncsol lruqfQA1RFScOQYxrZ20 Sr4lrQncEv4mFDLfIBX0 RKNwpPVfV6WawR7yThKa GLFuUIWuV8BxxETf XGluA041KMyeEvJ6XKRr hmQzU9FnWIEfoGtdOrS2 p6P9Tw8YG9N2UO83TY35 bMIpk2J8aSJ9H8Xh CALnwnudemorrMB8UTRi MPYmbS63Pk7vbCzmSw6x SSFwHVV4DALodKFgW5Ds eZ7oGmJnALZmVWAx H5ZgvFZwTIrpZ119KHgb BuP0VJPotuPcP2QkABHe aRicThW3u4O3Ge9OIDh2 SY92PU37sODug6E7 aKY8O6VqABXeyuvxypad eXO6LEJiYTEdsK83Tp0j wGyeZl2gSPMfEPF7NQKb qQNtJ7SstR8wGwWy YTVdDPAaZ5OtiUAjTRji Q065SRvjThT2CCSrftHr N2KwELEknQznRnS5o2L3 Bk7MARNiEA06BUX8 uOG1VY35NR49F6SeIogy dGFibGU+PHRhYmxlIHdp ZHRoPScxMDAlJyBzdHls MX9tCg0kWLDePNFb wCbuhBUbCyQza1ikEMEm TYmbUI1jhKkhS6AilJD1 CSTev3h8Tm21F31sY5Pd dXA+MZJtmZK3mCR2 gA5zGzOqHvD4XEmfL547 FoWqrIMqMarqe9kvp8sq zQt2JaV4BZRczaHmpLsg WWM0a5HdOp60J46v IHdpZHRoPSIxNSUiIHZh bItqyg7eiF5uOz5+PGNv rCA6kJA3wD0eEuYeTkQ2 CDfqC582OdBvmAHy Pwvdu1kxy2qfuEh1FjIj GMAmtbQshLbtUYP4s7Bc Ar47B1GzsQnen3SdDon7 ko56dAMed4U4aBJ3 A2AuKMKrolviyEGbyWub QE8vOZZrpepyDXMwcM5w PJFrR7v0InSqWkY8CUbs V7FljzU5TEGupREy ZSaaPEI8A37aa5V9ISQh ZIUyQWL1oUW8qC3lvVdl bjogbGVmdDsgdmVydGlj KFclLWgaZ264NOVq zLmgIKFigJ9uSADdwJSh xVjlVJ4jBRNieouhKfFU QVRSSUdIVCwgVEhPTUFT EMX7L5ZiRbb4ZCOx yBreAB9goVQtVWgfOk6i sIldbFgqXI1cQRRjcvfa NZFaiM2yBWJzpSZgkYhp VE5kISFotiejx299 CcYgVIV2VQXdyZSpW2Vv lT7cEfPwVKUkDVIdN8Dc oXPsXUysB936JSfxLfT7 XCRhatHmU5CxIFKt mAedIlM0o6T5Li0wYl9z QU5eAGo6PX43PF93eAOs f2Q8zDK9A2XqVMZrevbh nppqjFQ2JUBwUVXd zB55yZBbKPilEd0hq4G3 i949YMGeRZXneU41Cl3p cLeuARLqoLRQyZ2avlej l0vjyfmvOwXgXGAm RXh1GFg0ECXshDygKeEo WOG1NjS8PEI6bKOkwD8h kMupvpvhbP9dXfr+MjYg BOCvzlF5C5LjAeb1 TSKdxCinQQ8ndFCnTZpk Jt0bbPysiAupTG3nXNWd uupoTGQzcD4qNFLkkQSh sEcvKC1wGRUaipqi z886NiCcDBJ9DOUxbMGg K3CqoI1fToFcMKIqAOJk U3PytLZmYDccA635WLri ZpE0SZEiqiDtZ4Ym SGLggOjoRtS6w7L6Ir3V QAxpXO86BD11wCYho1C9 gQF6Q1UnDVIhmanzlxgl yHD3LIMeBJGyrP57 dTXfWEzpHx7gg9K1c746 PVLkHABlvV21Ds4myApw KWJkfWLQcC5sgtzsz6fi cjogIzAwMDAwMDt0 UGp8MMGfeRfuMwImPQL3 EcL0UJM3uDJtkS3twSst tgmnkY9aKtu+Y1N6bIW5 aWVudDwvdGQ+PC90 sg05M5PnHmajBaj4RQBw FRU8aOC4gV0vDEIsLEgm w5P2fKJ4C5UgftOckf4w n5raOTTeKAlzR81s pFDgh0Z0WZNxuUW5XPTv tQwaExPwhH50Ztq+PGNv sUalc6OkNcwsl3dbn2at gUj7ObAlDVZzkuEq nVulKJJ2p8OnZj82H42p IHdpZHRoPSIzMCUiIHZh iTgvoz5tcI6uBt4+PGNv oFP0fTV8cV8yQfUp EmI1EWjxA406AeDtjYSf Isrgl9uuv3txaLe5VhEa XOQopcFdoFbhBIT1e9Xd Nl74Z3AwiBfoq1Am Gau4dg09tISuj2B2jII7 O8KmSKGuimqxnPBmkTdh GE6vPTOsuvvqJNObhZ1c QZYgS5u1YcErUcR3 VVqvH1WdclL0ZLHrdFTs IRErvLWTuG1lvuhje8xz cluwEeRsAICvBHd4NYz9 LWFsaWduOiBsZWZ0 EcC3WKZ7wJVjnW5ckFpq rslyhT6qQii+YXo8x5ib wELoCK0ifVL9TX57OZ93 wTAkf2V2fVT2G9If ZKSvygzrfeonbCF3WWBh CGOdqZ18Sy0zxCvbUk6k INJaBZD4NWLjnHLtT5Ws kR0lGzEbRIMeSMCv T9VxfWWuIBvuD993GVcn JrH1WUMwzmNlL1WiUSFi nDrnIoH4b4C9Tm8TJE97 FK43JV13iVCdk2K6 uSN9D4SyCZEvydhvvffx rLE2OBSuFZAlsY30Cw9i gUgaKp1oRQVjAOT3BFWz pPXxL5NjuX6gGvLf RRPoWGUkX9GeiXOzRYxz M523TXvyXwY3DGLjmgXx J4HvIZMypWlsTcB0g8V2 Qf1AGp48WB82NK16 aEJnm3A5mKL7E7ZlPDTz vubliubgzDW3AJPzPSPv vJ14Vg3lkSruJg3iKAJc CWM7CKQhxOFwE5Pg cH2fFlTwTWWzECYrG3Ty jFPyWBjaH071TZujOaX5 PBFratIdJ5GlNDHuxLcr ZbU7n4C7Go4WJRox bkg3V9BoGtwwbYJ+PC90 RYNrSC80jUHriMIdy2hp lMu1YmXpPABoWSK2bKlk RIdbx6MgYUBnK10h bGFw (more content not included)... Normal [facility] Consent for Treatmenton 07-18 Consent for Treatment [id number] #1.00CD:127 Normal [facility] US Abdomen Completeon 2022 US [...] Arreguin M.D. Transcribed by: DORCAS Technologist: ZACHARY [facility] Physician Orderon 08-14-2022 Physician Order [id number] 9#1.00CD:127 [facility] Pre-Certification Formon Pre-Certification Form [id number] 1#1.00CD:127 [facility] Coding Summary.on 08-11-2022 Coding Summary. CD:[id number]:[id number] Gh0bWw+PGhlYWQ+PE1FV YSeO95ahYShlM2YR7uDH O2PIUCFUZGDSD1VGP0yy PG5CIczR0GcxcPn EzoewEMvIT87UTk5RAE8 nSyzEPzgmU6jvJKjU5z6 TkDqMX04vO25HWcbBSOx RnZ9VpXtbgkjiAJq M6sqTtVwfVEmEkt+PHRh YmxlIHdpZHRoPScxMDAl HpLjfPpbFK3oLh2kRXAn LWNvbGxhcHNlOiBj q9xgZWXrAMfmLD0ewHpg A4VchAZ0BEPav3o9Fa09 dHI+AWOgRAE9kGnmDWpu w588LxSlv2tsVRG0 tYOyVLmhOWD9D48kc4N4 ZLSfRIKpZVU7zWM5qE3v tLppifihU6IiaQFrAeZ3 VCM0iZViiQ7lhMbl wdfgbL2kTls+N67PQP5K OEWHWG1AAhx6E0NbAsnc dHI+CY08AVLlZF66rHVe kJRiy5lqyAn6VuOo LTGvQMM5zRoaEOiyf1Ds DUSdL31pnAAdm0F3WXRm fUqyySVdFjPdmAD3oI3j NNgpcxsce5uaclty Ikfla4covr27jS13M10y XGwnXJYjWIZ4HQAkZUOr qYugaw8kpZ0cHq0+IDxj b9kbz9zjqLo8KkVc IFRmgiRccXlqSVV1k4Ha Cb18T7ZhmDpno7XmFyc5 pv95xNAwo5U2eBA7QQee TEUcmO2jPMseGdQ7 NRBnRuJxnI26oYIqDGdg Gf7mmTfynYskXH6nBZTv bgnpAJGcxW0xPBAbpQWs tEscJZ8zUVVxxqfc a747GjRvMFY8ACGhmVEc I7IknA2sOyDwQBPtTWTl C4EqyGVdVIdrZ146PYef CyD7OFOeepXlG6Rm FNVeeQebOnC5i3B8Ii8J e3GuwofdBUJ3CMnqSFVk EhE5ZuMjBwX6T8VyYcu0 YBPafPmfDP4gE9Vq XATzkhszqabipAO5YCFd NJHiuQ87cIVbFSixRe0k t3A5e862UTMrXJUmnQ21 Vk2qdPdyJXQujCOB dD8zgjicm2eesycvCiNd ZBYfDMg3UAo1ULAuhEgh UaKiWML1FuL4DWI6vWNq pY8ccIuebrjvtS7k Oyc+W01wzL3cGJB5OUA9 quhaXMRfeqVbGA45FQ12 L0TzAhelcRPytXC+PGRp lcOudXnoFJ3iPzAp n0zsh2AsBZbxF7PnDAKc XDzcAhi4QGIvXKH7fMI3 dR3xLTXkKWoxu5A4oAV3 G9JnrqFmjj0ty3nz QMKlCWqnL45mgZXdq0K8 CEOxrYD4SSBxzOsuUwPg sK94Nya+UUPsrPekl6Lf Vgutd5xdd8eyeRp6 IjMwJSIgdmFsaWduPSJ0 i1EhJs20K08qIMjcMQPu IHChCMHbKSWudSgzpc1l jG5mKu4+PGNvbCB3 uHR1gI3nWQWoMkK4ZRmn Q769SkWaoNUaMkpoh4il v0ejjFf5OhEnFGKehgYt qQywVAE8j1XuMh61 L24jIYloTQJwPXOuPRKi DXLnlRzzac1dhD2wPv9+ FJ2tv7sszr29tO16eQN+ NTDnUWV4sEjoBNuw UDKnkA9sNOhaDhA0MJVi ItQmyU15qLAhTSjyHh7j zIncgOtyVJ6sJOYxmeew u645KeEqk0dxBVUe jQOoPBiwBIP2D79mc5H9 FZCqDBXcWKW0rMG3pH7x bGlnbjogbGVmdDsgdmVy aQgpBMomYHalO347 IHRvcDsnPlBhdGllbnQg PfBiFYi5G3OhNzr4SDRw oYvqBO9znOEiLBruQu0t gAoytXowKX6pPTDo flysf719ThMwj5vwEEXj fJUuWZyeQRS0Q44id6L3 WZRyOBRqVSN9bCX9gH3c bGlnbjogbGVmdDsg nqWmpEdgLAdrBVnrL422 IHRvcDsnPkJpcnRoIERh cMI1DL64CE99tVQdf7N3 tDQ2J2PnBIIpzvqe hbfzdPT0RSIvWECosO34 Rj3mfSuiRt4kBESlKQH3 LNQgwKZtQ3FylY2dWtJo YVJdJMYnA0HqvSGi WZdqH291WMhuFsN7ADDy bkWlA0EaKJAujRpmFxL1 q2C9Ee1GL2L7DB25YK93 oFIye4L9gCM9K8Xh GYXijjyknvnuwOH9XSBo VJPvbY77Tw6bnNgwFa5s TNKlNHS9LINrkOWqE7Hp rM7cEaZrHPGzFFCa C0AvoFFiXBklF274QCtk RbZ9QOApgoYvG4KuNCSy fBpeUbB8b6H1Bz2FAGx1 OG79GT13uQSzy2A7 yQV5J2WuCXUmesudhdjr hTE5PIDePBLxrK61Qs3x fLfkTk0fJKDxIER3PVCz jMEnL6GwfA7vXmIw FHGaBFYgS8DhoEVbOBzy X702YAcaUjO7NLTpjxJw K9KtMTLsiGdjIlT0w5E7 Lo3ZGPVhXM52CIY7 tJI0HP28KR08V5KiOmvt dGFibGU+PHRhYmxlIHdp ZHRoPScxMDAlJyBzdHls BG0cRs5cCAFjLXKx zXblnNItZeOsd3cnCYSu ULjeQR9fzZkkF2XvkFL2 WZEio2e7Vc02F41iU1Rz dXA+TWWnzNZ9aDZ6 wR4lUoScXvK0TSeuO721 OlFchDQwJforg8cdd2zd cIu2LnU1JUFgodWczZlj YPH7a3PcRy67C23e IHdpZHRoPSIxNSUiIHZh tRvzan8fgO6xMq1+PGNv wDD0wLX6sP7bBsOtIiP9 HPwtV112SsDwwZPn Krcjp8gad8owiYc1LfMs LQEryqUlfRsyDWE6v8Rl Av52J0JscSwhl1PrEui1 xj85uDAsa9Y9jOS9 Z1QeQCWusdsnyLSmeAmy RG5cABIwmouuJEGicR4r PZLzD9d3IdKzBiB8QQpn Y5RvmgF7BAEpoALf AJrrMZP4C43so4G7VYVd GEAzJVH3rYA3oM0scTzx bjogbGVmdDsgdmVydGlj RRhfKDgeP012HWKt wChbXQUnpU9eSSWkkIHj eTgoEM0vQAJztxbpSnLR QVRSSUdIVCwgVEhPTUFT WGN3J2AnBvm7YUWo nRtoXT0xdHBmUFwjAg6d kZtgjRezRX4lUHSeujct WIQmnT0eFWNepLVqjVpm EF2jFAPigvqbz925 TdCfTCS7IABicQGnR6Pn eM2zNwUoBBJiLUXoE9Sj eRQhGBbdA797XUvdBbI3 HSCrscJlB0AxTWSy pFwtEzP1x1F1Rj1sJe2b PL5oAOs9SO18DV63tBJv v9A5nLT6I7OoTOKmbamx roavsFN9CDXeQRRl oG92iJLlTSasZl2hx9T8 w588ZSPxVLItnP69Wq6b tBwpJHZcdUSMqU1jmvgh q2lmueqbEhJqWNPh ZLz1QNi1KTElfVqkDyIu BYL5KaB8HBO8uMQyfQ0e xKfkovhcsZ9yQpw+MjYg TGSafkZ0W9YcTtv3 ELWihUfiHE5qrKBgZOyt Qc3tcCbocJyzZU8bATEh dntdAFSphH5xSYZbeKPf mMgwQO3gDHZbjthb t111PpYtBLM2WIAknEUz Q6FzgP5rBuXgQWJnGQCz U9AggQGgNOhjA445PJdw IsY5VDTtrcEtI9Cj BWCvzHmhCbS9d4W8Jy7E QNwtNT88CQ23lBLix5O0 qRY4S6PdUVOnnlwfvdpy pND5ELLqGQHfvV59 iTQsRNudIh1rh4I3r808 FKJrJFEsvV55Nh3blDuo KNLehMSYqC9pectkp9oj cjogIzAwMDAwMDt0 UCf8XUAmyWqtAlIuVML2 OhF2FKY8xECvxS9jjYcs wgxtvE6rPhn+NG0iexxe nsU6QJ57ZE92Q8Fc PjwvdGFibGU+PHRhYmxl IHdpZHRoPScxMDAlJyBz jNrgMR2xMb9gQJStNAEu dVnjbUNcYyHld3af WPNaIGzwEL2osMfyZ8Sf sUI2RWWdx2r6Ks01M70x M1SruSJ+YAVdaPO2pWL8 hZ0cAlXdOuU4XDuo E483YtHttSXvIjpqt0yr f0onyWf0RvVdRYKlwiFn oYlsPDV4d7CdFf88N36y IHdpZHRoPSIyMCUi KDLcwQcnac7znR0bGe0+ WLIgsMO9pFN1dR5lReJe JlR1BQepS375KsCsuTOd KpbsI01nT0MljBT+ EKNiZxm3IIBhvGnrXP2n dHPcHDmnHw1tAGD4XpXf MjZkECcbL1XlKIZlzymi iqmpbXQ0LADyOBBu mD07Sl4dmYgnMx3yPZOu QJW2JQAnnHMpP3EpsA8g RvFvVKVlBATcT9WexWJn HJwzR709DJigThX6 IMOjmbHyI2XuOLTynBpo FhN4c5O7Bp9VpZytiXNh TF8xAjHiDIw3X1ZaBvc4 VIHdfExtWX5wsHMq QPolUc8ioQmgiLvkZL5d GGYaosuwa752FnWsl8oq YQMfuNMnETamXRJ6W82p w4L6TPPiDWTdAMU2 iHK9rY8poZmlohnviUSo dDsgdmVydGljYWwtYWxp T617WMYlkIhpFpNCUle6 D0QmQqh8WYDyzUtm LF9xiGAeXXhyLv8qcJbj xHvzBL0oEIYvwqkky479 WxVsq4riVOWfsFWqDKbl WRE9D01xg4V8VIFk ALStKRA5rKK8mM4nePzo bjogbGVmdDsgdmVydGlj IDzkVMalN005QPZexLvv Dm7XBot2Z0YaNzx1 ZYZjaEozLN6fyBJbJAjq Cj8qjIlfoQyoJG1jPSQj piioc409EeQni5qbYCVi lLRuFPcjHPF7E39s g2D9IOPfTTObDMJ5vQN5 qF1hoNaggrsyhVJgeDyf txNusTbaIOuhLMwcZ287 IHRvcDsnPlBheWVy OjwvdGQ+BK64dy29R8Jr QnmeRjj0VYHkINA3kBT4 vC9lCGLrPZaby4A8lEK0 I5MegpFhrl5wn2yp YXBz (more content not included)... Normal [facility] ED Note-Physicianon 08-11-19 ED Note-Physician [...] day(s), # 28 tab(s), Refills(s) 0, Pharmacy: [facility], 193, cm, 08/09/22 16:56:00 EST, Height/Length Dosing, 115.2, kg, 08/09/22 16:56:00 EST, Weight Dosing ondansetron, 4 mg = 2 mL, Injection, IV Push, Once, Stop date 08/09/22 17:30:00 EST, STAT, Start date 08/09/22 17:30:00 EST, 08/09/22 17:30:00 EST ondansetron, 4 mg = 1 tab(s), Oral, q6hr, # 12 tab(s), Refills(s) 0, Pharmacy: [facility], 193, cm, 08/09/22 16:56:00 EST, Height/Length [...] UA With Cult Reflex Medications Administered Given [id number] [F], 1000 mL, IV ondansetron 4 mg/2 [...] days 08/12/2022 EST [address] [place] [address]- Business (1) Add (more content not included)... Normal [facility] Comment on above: Result Comment: Elec tronically Signed By: Domingo Mcmillan PA-C\.br\Date and Time Signed: 08/09/22 20:16 EST\.br\Electronically Co-Signed By: Jv Dacosta DO\.br\Date and Time Co-Signed: 08/11/22 07:00 EST Discharge Instructionson Discharge Instructions [id number] 6#1.00CD:127 Normal [facility] Auto Diffon 08-09-2022 Basophils/100 WBC (Bld) 0.6 % Normal 0.0-2.0 [facility] Comment on above: Order Comment: Order Added by Discern Expert. Performed By: #### 2 [id number], [id number], [id number], [id number], 3543526, [id number] ####[facility] [address] [place] [address] Basophils/Leukocytes Auto (Bld) [Pure # fraction] 0.1 E9/L Normal 0.0-0.2 [facility] Comment on above: Order Comment: Order Added by Discern Expert. Performed By: #### 2 [id number], [id number], [id number], [id number], [id number], [id number] ####[address] [place] [address] Eosinophils/100 WBC (Bld) 1.2 % Normal 0.0-8.0 [facility] Comment on above: Order Comment: Order Added by Discern Expert. Performed By: #### 2 158718, [id number], 6345848, 7302954, 0735515, [id number] ####[address] [place] [address] Eosinophils/Leukocyt es Auto (Bld) [Pure # fraction] 0.1 E9/L Normal 0.0-0.5 [facility] Comment on above: Order Comment: Order Added by Discern Expert. Performed By: #### 2 295053, [id number], 5035373, 6771894, 7506741, [id number] ####[address] [address] Lymphocytes/100 WBC (Bld) 17.1 % Normal 14.0-50.0 [facility] Comment on above: Order Comment: Order Added by Discern Expert. Performed By: #### 2 834822, 86439384, 3110760, 6019917, 1065270, 0844558 ####[address] [place] [address] Lymphocytes/Leukocyt es Auto (Bld) [Pure # fraction] 1.9 E9/L Normal 1.0-4.0 [facility] Comment on above: Order Comment: Order Added by Discern Expert. Performed By: #### 2 913182, [id number], 4550585, 6833458, 8371051, 6474652 ####[address] [place] [address] Monocytes/100 WBC (Bld) 9.2 % Normal 4.0-14.0 [facility] Comment on above: Order Comment: Order Added by Discern Expert. Performed By: #### 2 745346, [id number], 4362616, 4063530, 4263802, 6544022 ####[facility] [address] [place] [address] Monocytes/Leukocytes Auto (Bld) [Pure # fraction] 1.0 E9/L Normal 0.2-1.0 [facility] Comment on above: Order Comment: Order Added by Discern Expert. Performed By: #### 2 534486, 64386514, 0430714, 5689416, 2944248, 3500419 ####[address] [place] [address] Neutrophils/100 WBC (Bld) 71.9 % Normal 36.0-75.0 [facility] Comment on above: Order Comment: Order Added by Discern Expert. Performed By: #### 2 704109, 59280468, 1153997, 6214408, 3672202, 0670314 ####[facility] [address] [place] [address] Neutrophils/Leukocyt es Auto (Bld) [Pure # fraction] 7.8 E9/L High 2.0-7.5 [facility] Comment on above: Order Comment: Order Added by Discern Expert. Performed By: #### 2 466392, 79052565, 1473936, 1903439, 4588642, 2820198 ####[facility] [address] [place] [address] BMPon 08-09-2022 Creatinine [Mass/Vol] 1.1 mg/dL Normal 0.5-1.3 [facility] Comment on above: Performed By: #### 2 190772, 73775483, 0912206, 3745823, 6566994, 1773643 ####[facility] [address] [place] [address] Urea nitrogen [Mass/Vol] 17 mg/dL Normal 5-21 [facility] Comment on above: Performed By: #### 2 172699, 24205358, 1631757, 8174887, 6386266, 1625385 ####[facility] [address] [place] [address] Urea nitrogen/Creatinine [Mass ratio] 16 No Units Normal 10-20 [facility] Comment on above: Performed By: #### 2 359204, 17073094, 8136451, 9821137, 7876549, 7841162 ####[facility] [address] [place] [address] Anion gap [Moles/Vol] 14 mmol/L Normal 6-16 [facility] Comment on above: Performed By: #### 2 457162, 73711522, 7740165, 1811833, 1020930, 6950120 ####[facility] [address] [place] [address] Calcium [Mass/Vol] 9.6 mg/dL Normal 8.9-11.1 [facility] Comment on above: Performed By: #### 2 459838, 79080765, 6496482, 2751779, 6181938, 9876485 ####[facility] [address] [place] [address] Chloride [Moles/Vol] 100 mmol/L Low 101-111 [facility] Comment on above: Performed By: #### 2 710292, 19141385, 8195913, 6843682, 8114236, 9235082 ####[facility] [address] [place] [address] CO2 [Moles/Vol] 23 mmol/L Normal 21-31 [facility] Comment on above: Performed By: #### 2 155182, 34491822, 5922318, 2105559, 5201591, 8333147 ####[facility] [address] [place] [address] Glucose [Mass/Vol] 98 mg/dL Normal 55-199 [facility] Comment on above: Result Comment: If t his glucose result represents a fasting glucose, interpretation should refer to the following reference range: 55-99 mg/dL Performed By: #### 2 474790, 12419785, 1067775, 5943434, 2039940, 3774306 ####[facility] [address] [place] [address] Potassium [Moles/Vol] 4.7 mmol/L Normal 3.5-5.3 [facility] Comment on above: Performed By: #### 2 195529, 29580324, 6449254, 7765267, 0780335, 7033979 ####[facility] [address] [place] [address] Sodium [Moles/Vol] 132 mmol/L Low 135-145 [facility] Comment on above: Performed By: #### 2 938449, 95759562, 6365131, 5175817, 0819894, 7471105 ####[facility] [address] [place] [address] CBC w/ Auto Diffon Erythrocyte distribution width (RBC) [Ratio] 13.2 % Normal 10.9-14.2 [facility] Comment on above: Performed By: #### 2 551279, 07396717, 8261580, 7624124, 6010877, 4459854 ####[facility] [address] [place] [address] Hematocrit (Bld) [Volume fraction] 53.9 % High 37.7-49.0 [facility] Comment on above: Performed By: #### 2 115917, 31955728, 8315787, 3668053, 4466257, 4785003 ####[facility] [address] [place] [address] Hemoglobin (Bld) [Mass/Vol] 18.0 g/dL High 13.5-17.5 [facility] Comment on above: Performed By: #### 2 937639, 23626066, 4061569, 1997388, 5671553, 2889625 ####[facility] [address] [place] [address] MCH (RBC) [Entitic mass] 29.1 pg Normal 27.0-34.0 [facility] Comment on above: Performed By: #### 2 395034, 01260697, 4561083, 1324856, 2408427, 4211471 ####[address] [address] MCHC (RBC) [Mass/Vol] 33.3 g/dL Normal 31.4-36.0 [facility] Comment on above: Performed By: #### 2 316131, 40332408, 1040714, 0340393, 7423301, 2862056 ####[address] [address] MCV (RBC) [Entitic vol] 87.4 fL Normal 80.0-100.0 [facility] Comment on above: Performed By: #### 2 632575, 41943586, 0917094, 4358352, 9127964, 4147727 ####[place] 96[address]857 Platelet mean volume (Bld) [Entitic vol] 7.2 fL Normal 6.4-10.8 [facility] Comment on above: Performed By: #### 2 939209, 69856011, 0121497, 3114968, 5528706, 9974744 ####[address] [address] Platelets (Bld) [#/Vol] 328.0 E9/L Normal 150.0-500.0 [facility] Comment on above: Performed By: #### 2 359131, 53248336, 0288506, 3163864, 8287757, 0124353 ####[address] [address] RBC (Bld) [#/Vol] 6.2 E12/L High 4.3-5.9 [facility] Comment on above: Performed By: #### 2 686461, 37539094, 4348700, 0659759, 9388711, 9747926 ####[address] [place] [address] WBC corrected for nucl RBC Auto (Bld) [#/Vol] 10.9 E9/L Normal 4.0-11.0 [facility] Comment on above: Performed By: #### 2 471736, 12075459, 5874542, 0867123, 3851245, 4574830 ####[facility] [address] [place] [address] CHEMISTRYOrdered By: SYSTEM SYSTEM on 08-09-2022 Albumin [...] m2 Normal >=59mL/min/1.73 m2 [facility] Chem S GFR/1.73 sq M.predicted among non-blacks MDRD (S/P/Bld) [Vol rate/Area] mL/min/1.73 m2 Normal >=59mL/min/1.73 m2 [facility] Chem S Globulin (S) [Mass/Vol] 3.4 g/dL Normal 1.4 - 4.0 gm/dL FT Remisol Glucose [Mass/Vol] 98 mg/dL Normal 55 - 199 mg/dL FT [facility] Lipase [Catalytic activity/Vol] 24 U/L Normal 13 - 58 unit/L [facility] Remisol Potassium [Moles/Vol] 4.7 mmol/L Normal 3.5 - 5.3 mmol/L FT [facility] Protein [Mass/Vol] 8.7 g/dL High 6.0 - 7.8 gm/dL F [facility] Remisol Sodium [Moles/Vol] 132 mmol/L Low 135 - 145 mmol/L FT [facility] Urea nitrogen [Mass/Vol] 17 mg/dL Normal 5 - 21 mg/dL [facility] Remisol Urea nitrogen/Creatinine [Mass ratio] 16 mg/mg [...] 300 Contrast amount in ml's: 100 Normal [facility] Consent for Treatmenton 07-17 Consent for Treatment [id number] #1.00CD:127 Normal [facility] ED Clinical Summaryon 2022 ED Clinical Summary [place] [id number] ED Clinical Summary Person Information Name: TIGRECINDY ESCOBAR Mario Winslow/[facility] Age: 26 Years : 1995 Sex: Male Language: Bhutanese PCP: Bi BELL DO Marital Status: Single [...] 08/09/2022 20:08:07 08/09/2022 20:08:07 08/09/2022 20:08:07 ADDRESS: [address] [place] [id number] PHYS DOC NOTES: MEDICAL INFORMATION: Prescriptions Given: New Medications [facility], [address], [place] [id number], [phone] dicyclomine (dicyclomine 20 mg Tab) 1 Tablets [...] Follow up: With: Address: When: Bi BELL [facility] [place] [id number] [employer] (1Brigade In 3 days 08/12/2022 DIAGNOSIS: Abdominal pain; Diarrhea; Nausea Normal [facility] ED Patient Education Noteon 08-09-2022 [...] oral rehydration solution (ORS). This is an dsvr-qxb-mwvyqgj medicine that helps return your body to [...] sports drinks, and soda. ? Eat bland, jgsd-fj-osdvaf foods in small amounts as you are able. These foods include bananas, applesauce, rice, lean meats, toast, and crackers. ? Avoid alcohol. ? Avoid spicy or fatty foods. Medicines ? Take gjxa-mxq-zfbszup and prescription medicines only as told by your health care provider. ? If you were prescribed an antibiotic medicine, take it as told by your health care provider. Do not stop using the antibiotic even if you start to feel better. General instructions ? Wash your hands often using soap and water. 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 Others in the household should wash their [...] and water are not available, use hand distribution center associate. ? Contact a health care provider if [...] 06/22/2003 Document Revised: 11/18/2019 Document Reviewed: 12/06/2018 [employer] Patient Education ? 2019 [employer]. Nausea, Adult Nausea is the feeling that [...] a drink (more content not included)... Normal [facility] ED Patient Summaryon 023 ED Patient Summary [place] [address] Patient Discharge Instructions Person Information Name: CINDY SYLVESTER Age: 26 Years Arrival Date: 08/09/2022 16:50:34 Discharge Diagnosis: Abdominal pain; Diarrhea; Nausea Primary Care Physician: Bi BELL DO Provider Information Primary Provider: Jv Dacosta DO Advanced Telehealth Nurse:Domingo Mcmillan PA-C The exam and treatment you received in the Emergency Department were for an urgent problem and are not intended as complete care. It is important that you follow up with a doctor, nurse practitioner, or physician?s surgeon assistant for ongoing care. If your symptoms [...] When: Bi BELL [address] [place] [address] [employer] (1) In 3 days 08/12/2022 In the event that this physician does not participate in your insurance network, please consult with your insurance company to find a nearby participating provider. Patient Education Materials: Diarrhea, Adult; Nausea, Adult A MESSAGE TO ALL PATIENTS REGARDING OPIOIDS PRESCRIPTION OPIOIDS: WHAT YOU NEED TO KNOW Prescription opioids can be used to help relieve xzaujfqs-gs-xdjaqo pain and are often prescribed following a [...] be struggling with addiction, tell your health housekeeper caregiver and ask for guidance or call [facility] National Helpline at 2-517- (more content not included)... Normal [facility] HEMATOLOGYOrdered By: SYSTEM SYSTEM on [...] 08-09-2022 Albumin [Mass/Vol] 5.3 g/dL High 3.3-5.0 [facility] Comment on above: Performed By: #### 2 183905, 40644868, 1537706, 5695773, 0864782, 7815270 ####[facility] [address] [place] [address] Albumin/Globulin (S) [Mass conc ratio] 1.6 Normal 1.1-2.2 [facility] Comment on above: Performed By: #### 2 729812, 04062648, 3528524, 1644731, 1396763, 0053442 ####[facility] [address] [place] [address] ALP [Catalytic activity/Vol] 108 Int._Unit/L High 21-98 [facility] Comment on above: Performed By: #### 2 226732, 60648533, 7557728, 5000438, 2310568, 9775625 ####[address] [address] ALT No additional P-5'-P [Catalytic activity/Vol] 46 Int._Unit/L Normal 6-46 [facility] Comment on above: Performed By: #### 2 342004, 45334004, 5005058, 3435688, 6375172, 0760393 ####[facility] [address] [place] [address] AST [Catalytic activity/Vol] 26 Int._Unit/L Normal 5-43 [facility] Comment on above: Performed By: #### 2 919015, 60959740, 5090910, 7110660, 0541187, 0124568 ####[facility] [address] [place] [address] Bilirubin [Mass/Vol] 1.3 mg/dL High 0.0-1.1 [facility] Comment on above: Performed By: #### 2 256459, 67320084, 5347267, 9767202, 4658971, 2063836 ####[facility] [address] [place] [address] Bilirubin.direct [Mass/Vol] 0.2 mg/dL Normal 0.1-0.4 [facility] Comment on above: Performed By: #### 2 770632, 95792232, 7912879, 7670006, 8384050, 0029545 ####[facility] [address] [place] [address] Bilirubin.indirect [Mass or moles/Vol] 1.0 mg/dL High 0.1-0.9 [facility] Comment on above: Performed By: #### 2 726705, 25338364, 4515838, 4771055, 7403572, 0713047 ####[place] [address] [place] [address] Globulin (S) [Mass/Vol] 3.4 g/dL Normal 1.4-4.0 [facility] Comment on above: Performed By: #### 2 041599, 20618535, 5822911, 3576544, 2507684, 4525278 ####[address] [address] Protein [Mass/Vol] 8.7 g/dL High 6.0-7.8 [facility] Comment on above: Performed By: #### 2 528739, 18037150, 5194040, 6806068, 1199768, 3664471 ####[address] [address] Lipase Levelon 08-09-2022 Lipase [Catalytic activity/Vol] 24 U/L Normal 13-58 [facility] Comment on above: Performed By: #### 2 332946, 66082491, 7911868, 3794361, 1260922, 3283290 ####[address] [address] Reminderson 08-09-2022 Reminders - From: Trupti Marques CNP To: Sri Tyler; Sent: 08/08/2022 08:58:32 EST Show up: 08/08/2022 08:59:00 EST Subject: Ambulatory Reminder Reminder/Recall Colonoscopy in 2031. 04/06/2032 - From: Sri Tyler To: [facility] - Reminders/Recalls; Sent: 08/09/2022 13:13:14 EST ! Show up: 02/14/2032 13:13:00 EDT Due Date/Time: 03/16/2032 13:13:00 EDT Normal [facility] UA With Cult Reflexon 2022 Bilirubin Ql (U) Negative Normal Negative [facility] Comment on above: Performed By: #### 1 8535189 ####[facility] [address] [place] [address] Clarity (U) CLEAR Normal Clear [facility] Comment on above: Performed By: #### 1 0523043 ####[facility] [address] [place] [address] Color (U) YELLOW Normal Yellow [facility] Comment on above: Performed By: #### 1 0384450 ####[facility] [address] [place] [address] Epithelial cells.squamous LM.HPF (Urine sed) [#/Area] 3-4 Normal 0-2 [facility] Comment on above: Performed By: #### 1 6940266 ####[facility] [address] [place] [address] Glucose Test strip (U) [Mass/Vol] Negative Normal Negative [facility] Comment on above: Performed By: #### 1 2593337 ####[facility] [address] [place] [address] Hemoglobin Ql (U) Negative Normal Negative [facility] Comment on above: Performed By: #### 1 4941936 ####[facility] [address] [place] [address] Ketones (U) [Mass/Vol] Negative Normal Negative [facility] Comment on above: Performed By: #### 1 5388323 ####[facility] [address] [place] [address] [place].plasma/Lithi um.RBC (Bld) [Mass ratio] 0-3 Normal 0-3 [facility] Comment on above: Performed By: #### 1 4844858 ####[address] [address] Nitrite Ql (U) Negative Normal Negative [facility] Comment on above: Performed By: #### 1 4043721 ####[address] [address] pH (U) 6.0 [pH] Invalid Interpretation Code 5.0-9.0 [facility] Comment on above: Performed By: #### 1 8611115 ####[address] [address] Protein (U) [Mass/Vol] Negative Normal Negative [facility] Comment on above: Performed By: #### 1 4731177 ####[place] 9618857 Specific gravity (U) [Rel density] 1.015 Invalid Interpretation Code 1.005-1.030 [facility] Comment on above: Performed By: #### 1 7605044 ####[place] 9618857 Type of Urine collection method Clean Catch Normal [facility] Comment on above: Performed By: #### 1 5980254 ####[address] [address] Urobilinogen Qn (U) 0.2 {Casa'U}/dL Normal 0.0-1.0 [facility] Comment on above: Performed By: #### 1 5147914 ####[address] [address] WBC Auto Ql (U) Negative Normal Negative [facility] Comment on above: Performed By: #### 1 2972288 ####[address] [address] WBC LM.HPF (Urine sed) [#/Area] 0-5 Normal 0-5 [facility] Comment on above: Performed By: #### 1 1127887 ####[facility] [address] [place] [address] URINALYSISOrdered By: Jose Rose on 08-09-2022 Bilirubin [...] PM) Normal Negative [facility] UA Auto SS [place].plasma/Lithi um.RBC (Bld) [Mass ratio] 0-3 /HPF Normal [...] [facility] UA Auto SS Urobilinogen Qn (U) 0.2209339 {Casa'U}/dL Normal 0.0 - 1.0 EU/dL [facility] UA Auto SS WBC Auto Ql (U) Negative (08/09/22 7:08 PM) Normal Negative [facility] UA Auto SS WBC LM.HPF (Urine sed) [#/Area] 0-5 /HPF Normal 0-5/HPF [facility] UA Auto SS eGFRon 08-09-2022 GFR/1.73 sq M.predicted among blacks MDRD (S/P/Bld) [Vol rate/Area] mL/min/{1.73_m2} Normal >=59 [facility] Comment on above: Order Comment: Order added by Discern Expert. Result Comment: eGFR is race adjusted. AA=. Performed By: #### 2 749026, 30103580, 5038400, 4654591, 6983757, 3203378 ####[facility] [address] [place] [address] GFR/1.73 sq M.predicted among non-blacks MDRD (S/P/Bld) [Vol rate/Area] mL/min/{1.73_m2} Normal >=59 [facility] Comment on above: Order Comment: Order added by Discern Expert. Result Comment: Time Signal Wirer mayra kidney disease could be indicated at eGFR's of less than 60 mL/min/1.73m2. Kidney failure is indicated at less than 15 mL/min/1.73m2. Performed By: #### 2 288333, 98486560, 4151764, 4574684, 6986542, 8628323 ####[facility] [address] [place] [address] Ambulatory Visit Summaryon 0 08-08-2022 Ambulatory Visit [...] Sound 2022 9:00 AM EST With: Where: [facility] Sunday 10:20 AM EDT With: Trupti Marques CNP Where: [facility] Normal [facility] Gastroenterology Office/Clin ic Noteon 08-08-2022 [...] elastase 8 (more content not included)... Normal [facility] Comment on above: Result Comment: [...] these instructions at home: Medicines ? Take zism-phc-mhthnht and prescription medicines only as told by [...] your condition for any changes. ? Take qbub-ccc-wtjesdd and prescription medicines only as told by [...] Reviewed: 11/10/2019 [employer] Patient Education ? 2019 [employer] [facility] Consultation Noteon 08-03-19 Consultation Note [id number] #1.00CD:127 [facility] Auth for Release of Medical Recordson 06-19-2022 Auth for Release of Medical Records [id number] #1.00CD:127 Normal [facility] CHEMISTRYOrdered By: SYSTEM SYSTEM on [...] 78 mm[Hg] Cesilia Jeter MD Work Phone: [facility] 05-28-2023 14:56-0500 Heart rate 112 /min Cesilia Jeter MD Work Phone: [facility] 05-28-2023 14:56-0500 Systolic blood pressure 106 mm[Hg] Cesilia Jeter MD Work Phone: [facility] 05-28-2023 13:59-0500 Body height 193 cm Cesilia Jeter MD Work Phone: [facility] 05-28-2023 13:59-0500 Body mass index (BMI) [Ratio] 30.07 kg/m2 Cesilia Jeter MD Work Phone: [facility] 05-28-2023 13:59-0500 Body weight 112.04 kg Cesilia Jeter MD Work Phone: [facility] 04-05-2023 13:57-0400 Body height 193.04 cm Bi Bell Work Phone: [facility] 250 DO Work Phone: 04-05-2023 13:57-0400 Body mass index (BMI) [Ratio] 28.85 kg/m2 Bi Bell Work Phone: [facility] 250 DO Work Phone: 04-05-2023 13:57-0400 Body surface area Derived from formula 2.38 m2 Bi Bell Work Phone: [facility] 250 DO Work Phone: 04-05-2023 13:57-0400 Body weight 107.5 kg Bi Bell Work Phone: [facility] 250 DO Work Phone: 04-05-2023 13:57-0400 Diastolic blood pressure 80 mm[Hg] Bi Bell Work Phone: [facility] 250 DO Work Phone: 04-05-2023 13:57-0400 Heart rate 111 /min Bi Bell Work Phone: [facility] 250 DO Work Phone: 04-05-2023 13:57-0400 Systolic blood pressure 130 mm[Hg] Bi Bell Work Phone: [facility] DO Work Phone: 02-15-2023 11:49-0400 Diastolic blood pressure 89 mm[Hg] DO Bi Bell Work Phone: [facility] 02-15-2023 11:49-0400 Heart rate 106 /min DO Bi Bell Work Phone: [facility] 02-15-2023 11:49-0400 Systolic blood pressure 145 mm[Hg] DO Bi Bell Work Phone: [facility] 02-15-2023 11:39-0400 Body height 193.04 cm DO Bimaxi Bell Work Phone: [facility] 02-15-2023 11:39-0400 Body weight 113.39 kg DO Bi Bell Work Phone: [facility] 02-15-2023 10:00-0400 SaO2% (BldA) [Mass fraction] 99 % DO Bimaxi Bell Work Phone: [facility] 02-07-2023 21:26-0400 Body temperature 98.24 [degF] Ghulam Masterson [facility] 02-07-2023 21:26-0400 Diastolic blood pressure 78 mm[Hg] Ghulam Masterson [facility] 02-07-2023 21:26-0400 Heart rate 102 /min Ghulam Masterson [facility] 02-07-2023 21:26-0400 Respiratory rate 15 /min Ghulam Masterson [facility] 02-07-2023 21:26-0400 SaO2% (BldA) [Mass fraction] 98 % Ghulam Masterson [facility] 02-07-2023 21:26-0400 Systolic blood pressure 132 mm[Hg] Ghulam Masterson [facility] 12-14-2022 14:56-0400 Diastolic blood pressure 80 mm[Hg] Bi Bell Work Phone: [facility] 250 DO Work Phone: 12-14-2022 14:56-0400 Diastolic blood pressure 76 mm[Hg] Bi Bell Work Phone: [facility] 250 DO Work Phone: 12-14-2022 14:56-0400 Systolic blood pressure 130 mm[Hg] Bi Bell Work Phone: [facility] 250 DO Work Phone: 12-14-2022 14:56-0400 Systolic blood pressure 128 mm[Hg] Bi Bell Work Phone: [facility] 250 DO Work Phone: 12-14-2022 13:39-0400 Diastolic [...] Bell Work Phone: [facility] 250 DO Work Phone: 12-14-2022 13:37-0400 Body surface area Derived from formula 2.42 m2 Bi Bell Work Phone: [facility] 250 DO Work Phone: 12-14-2022 13:37-0400 Body weight 112.04 kg Bi Hoyt Ray Work Phone: [facility] 250 DO Work Phone: 12-14-2022 13:37-0400 Diastolic blood pressure 88 mm[Hg] Bi Bell Work Phone: [facility] DO Work Phone: 12-14-2022 13:37-0400 Heart rate 106 /min Bi Bell Work Phone: [facility] 250 DO Work Phone: 12-14-2022 13:37-0400 Systolic blood pressure 128 mm[Hg] Bi S Ray Work Phone: [facility] 250 DO Work Phone: 11-23-2022 13:49-0400 Blood Pressure Location Chapman SALAM [facility] 11-23-2022 13:49-0400 Diastolic blood pressure 91 mm[Hg] Chapman SALAM [facility] 11-23-2022 13:49-0400 Heart rate 111 /min Chapman SALAM [facility] 11-23-2022 13:49-0400 Respiratory rate 16 /min Chapman SALAM [facility] 11-23-2022 13:49-0400 SaO2% (BldA) [Mass fraction] 98 % Chapman SALAM [facility] 11-23-2022 13:49-0400 Systolic blood pressure 134 mm[Hg] Chapman SALAM [facility] 10-20-2022 10:08-0400 Blood Pressure Location Truptilanette Marques [facility] 10-20-2022 10:08-0400 Body temperature 97.34 [degF] Trupti Marques [facility] 10-20-2022 10:08-0400 Diastolic blood pressure 67 mm[Hg] Trupti Escamillametz [facility] 10-20-2022 10:08-0400 Heart rate 126 /min Trupti Marques [facility] 10-20-2022 10:08-0400 Systolic blood pressure 110 mm[Hg] Trupti Escamillametz [facility] 08-09-2022 20:00-0500 Diastolic blood pressure 73 mm[Hg] Jv Dacosta [facility] 08-09-2022 20:00-0500 Heart rate 92 /min vJ Dacosta [facility] 08-09-2022 20:00-0500 Mean blood pressure 98 mm[Hg] Jv Dacosta [facility] 08-09-2022 20:00-0500 Respiratory rate 18 /min Jv Dacosta [facility] 08-09-2022 20:00-0500 SaO2% (BldA) [Mass fraction] 98 % Jv Praneeth [facility] 08-09-2022 20:00-0500 Systolic blood pressure 149 mm[Hg] Jv Praneeth [facility] 08-09-2022 19:00-0500 Diastolic blood pressure 65 mm[Hg] Jv Praneeth [facility] 08-09-2022 19:00-0500 Heart rate 97 /min Jvaustin Dacosta [facility] 08-09-2022 19:00-0500 Mean blood pressure 90 mm[Hg] Jv Dacosta [facility] 08-09-2022 19:00-0500 SaO2% (BldA) [Mass fraction] 96 % Jv Dacosta [facility] 08-09-2022 19:00-0500 Systolic blood pressure 140 mm[Hg] Jv Praneeth [facility] 08-09-2022 18:00-0500 Diastolic blood pressure 74 mm[Hg] Jv Praneeth [facility] 08-09-2022 18:00-0500 Mean blood pressure 87 mm[Hg] Jv Praneeth [facility] 08-09-2022 18:00-0500 SaO2% (BldA) [Mass fraction] 95 % Jv Praneeth [facility] 08-09-2022 18:00-0500 Systolic blood pressure 112 mm[Hg] Jv Praneeth [facility] 08-09-2022 16:54-0500 Body temperature 97.52 [degF] Jv Dacosta [facility] 08-09-2022 16:54-0500 Heart rate 124 /min Jv Dacosta [facility] 08-08-2022 08:24-0500 Blood Pressure Location Trupti Marques [facility] 08-08-2022 08:24-0500 Body temperature 97.16 [degF] Trupti Marques [facility] 08-08-2022 08:24-0500 Diastolic blood pressure 82 mm[Hg] Trupti Marques [facility] 08-08-2022 08:24-0500 Heart rate 105 /min Trupti Marques [facility] 08-08-2022 08:24-0500 Systolic blood pressure 129 mm[Hg] Trupti Marques [facility] 04-13-2022 16:08-0400 Blood Pressure Location Bi BELL [facility] 04-13-2022 16:08-0400 Body temperature 97.16 [degF] Bi BELL [facility] 04-13-2022 16:08-0400 Diastolic blood pressure 82 mm[Hg] Bi BELL [facility] 04-13-2022 16:08-0400 Heart rate 119 /min Bi BELL [facility] 04-13-2022 16:08-0400 SaO2% (BldA) [Mass fraction] 96 % Bi BELL [facility] 04-13-2022 16:08-0400 Systolic blood pressure 142 mm[Hg] Bi BELL [facility] 03-27-2022 11:19-0400 Blood Pressure Location Bi RAY [facility] 03-27-2022 11:19-0400 Body temperature 97.16 [degF] Bi RAY [facility] 03-27-2022 11:19-0400 Diastolic blood pressure 88 mm[Hg] Bi RAY [facility] 03-27-2022 11:19-0400 Heart rate 108 /min Bi BELL [facility] 03-27-2022 11:19-0400 SaO2% (BldA) [Mass fraction] 98 % Bi BELL [facility] 03-27-2022 11:19-0400 Systolic blood pressure 140 mm[Hg] Bi BELL [facility] 11-29-2021 15:45-0400 Blood Pressure Location Bi BELL [facility] 11-29-2021 15:45-0400 Diastolic blood pressure 82 mm[Hg] Bi BELL [facility] 11-29-2021 15:45-0400 Heart rate 110 /min Bi BELL [facility] 11-29-2021 15:45-0400 SaO2% (BldA) [Mass fraction] 98 % Bi BELL [facility] 11-29-2021 15:45-0400 Systolic blood pressure 124 mm[Hg] Bi BELL [facility] 10-06-2021 15:06-0400 Blood Pressure Location Bi RAY [facility] 10-06-2021 15:06-0400 Body temperature 97.16 [degF] Bi BELL [facility] 10-06-2021 15:06-0400 Diastolic blood pressure 92 mm[Hg] Bi BELL [facility] 10-06-2021 15:06-0400 Heart rate 113 /min Bi BELL [facility] 10-06-2021 15:06-0400 SaO2% (BldA) [Mass fraction] 97 % Bi BELL [facility] 10-06-2021 15:06-0400 Systolic blood pressure 148 mm[Hg] Bi BELL [facility] Encounters Encounter Date Encounter Type Care Provider Facility Start: 05-28-2023 End: 05-28-2023 ambulatory [facility] Start: 05-28-2023 End: 05-28-2023 Office outpatient visit 15 minutes Cesilia Jeter MD Work Phone: [facility] Comment on above: Tachycardia (Primary Dx); Atrial fibrillation, unspecified type (CMS/HCC); Heart murmur Start: 05-01-2023 End: 05-02-2023 ambulatory [facility] Start: 04-05-2023 Office outpatient vi sit 25 minutes Bi Bell Work Phone: [facility] DO Work Phone: Start: 04-05-[address] Cesilia Vazquez ty:[id number] Start: 02-15-2023 Chart Update Bi yan Work Phone: [facility] DO Work Phone: Start: 02-15-2023 ambulatory Minnie Hahn lity:[id number] Start: 02-15-2023 End: 02-15-2023 ambulatory Cesilia Jeter Facility:[facility] Start: 02-15-2023 End: 02-15-2023 ambulatory DO Bi Bell Work Phone: [facility] Work Phone: Start: 02-15-2023 End: 02-15-2023 Patient encounter procedure DO Bi Bell Work Phone: [facility] Work Phone: Start: 02-08-2023 Chart Update Bi yan Work Phone: [facility] DO Work Phone: Start: 02-07-2023 End: 02-08-2023 Emergency department patient visit Ghulam Masterson Facility:[facility] Start: 02-07-2023 End: 02-07-2023 Emergency department patient visit Ghulam Masterson [facility] Start: 02-05-[address] Bi Friedman Ray Facility:[id number] Start: 01-15-2023 End: 01-16-2023 ambulatory WENDI MENDOZA Facility:[facility] Start: 01-07-[address] Cesilia Vazquez ty:[id number] Start: 12-26-2022 End: 12-27-2022 ambulatory Bi BELL Facility:[facility] Start: 12-26-2022 Patient encounter procedure Bi Bell Work Phone: [facility] DO Work Phone: Start: 12-26-[address] Cesilia Vazquez ty: Start: 12-20-2022 End: 12-21-2022 ambulatory Bi BELL Facility:[facility] Start: 12-20-2022 End: 12-20-2022 Patient encounter procedure Bi BELL [facility] Start: 12-14-2022 Office consultation new/estab patient 60 min Bi Bell Work Phone: [facility] 250 DO Work Phone: Start: 12-14-2022 Patient encounter procedure Bi Bell Work Phone: [facility] DO Work Phone: Start: 12-14-[address] Cesilia Vazquez ty: Start: 12-06-2022 End: 12-07-2022 ambulatory Palmer Levi Facility:[facility] Start: 11-29-2022 End: 11-30-2022 ambulatory Bi BELL Facility:[facility] Start: 11-23-2022 End: 11-24-2022 ambulatory [facility] Start: 11-23-2022 End: 11-23-2022 Patient encounter procedure Chapman DEREKAM [facility] Start: 11-17-2022 End: 11-18-2022 ambulatory Chapman SALAM Facility:[facility] Start: 11-01-2022 End: 11-02-2022 ambulatory XXXX NONE Facility:[facility] Start: 11-01-2022 End: 11-01-2022 Patient encounter procedure [facility] Start: 10-31-2022 ambulatory Winsome Davenport Facility: [facility] Start: 10-30-2022 Chart abstracting Mike mallory MD Work Phone: Hematology/Oncology Start: 10-20-2022 End: 10-21-2022 ambulatory Trupti Marques Facility:[facility] Start: 10-20-2022 End: 10-20-2022 Patient encounter procedure Trupti Marques [facility] Start: 09-14-2022 End: 09-15-2022 ambulatory XXXX NONE Facility:[facility] Start: 09-14-2022 End: 09-14-2022 Patient encounter procedure Adela MEZA [facility] Start: 09-05-2022 End: 09-06-2022 ambulatory Dixon Mcwilliams Facility:[facility] Start: 09-05-2022 End: 09-05-2022 Patient encounter procedure Dixon Mcwilliams [facility] Start: 09-05-[address] Cesilia Vazquez ty:[id number] Start: 08-21-2022 End: 08-22-2022 ambulatory Tarik Sheehan Facility:[facility] Start: 08-21-2022 End: 08-21-2022 Patient encounter procedure Tarik Sheehan [facility] Start: 08-15-2022 End: 08-16-2022 ambulatory Trupti Marques Facility:[facility] Start: 08-15-2022 End: 08-15-2022 Patient encounter procedure Trupti Marques [facility] Start: 08-09-2022 End: 08-09-2022 Emergency department patient visit Jv Dacosta Facility:[facility] Start: 08-09-2022 End: 08-09-2022 Emergency department patient visit Jv Dacosta [facility] Start: 08-08-2022 End: 08-09-2022 ambulatory [facility] Start: 08-08-2022 End: 08-08-2022 Patient encounter procedure Trupti Marques [facility] Start: 07-13-2022 End: 07-14-2022 ambulatory Bi BELL Facility: [place] Start: 05-08-2022 End: 05-17-2022 Pre-admission assessment Bi BELL [facility] Start: 04-13-2022 End: 04-13-2022 Patient encounter procedure Bi BELL [facility] Start: 03-27-2022 End: 03-27-2022 Patient encounter procedure Bi BELL [facility] Start: 03-03-2022 End: 03-03-2022 Patient encounter procedure Chapman SIDNEY [facility] Start: 03-03-2022 End: 03-03-2022 Lab Drop off Adela MEZA [facility] Start: 12-05-2021 End: 12-05-2021 Patient encounter procedure Gustavo Zepeda [facility] Start: 11-29-2021 End: 11-29-2021 Patient encounter procedure Bi BELL [facility] Start: 11-22-2021 End: 11-22-2021 Patient encounter procedure Bi BELL [facility] Start: 11-21-2021 End: 02-19-2022 Recurring Cruzito ALDANA [facility] Start: 11-21-2021 End: 02-19-2022 Special examination status Cruzito ALDANA [facility] Start: 10-06-2021 End: 10-06-2021 Patient encounter procedure Bi BELL [facility] Procedures Date Procedure Procedure Detail Performing Clinician [...] 2) Zoste r Vaccines (1 of 2) [facility] Start: 09-15-2023 DTaP/Tdap/Td Vaccine s (8 - Td or Tdap) DTaP/Tdap/Td Vaccines (8 - Td or Tdap) [facility] Start: 03-16-2023 Influenza vaccination C [facility] Start: 02-22-2023 FUV, Provider: Cesilia Jeter, Status: Pen, Time: 10:15 AM FUV, Provider: Cesilia Jeter, Status: Pen, Time: 10:15 AM [facility] DO Work Phone: Start: 02-15-2023 SURGNON, Provider: Minnie Vásquez, Status: Pen, Time: 11:00 AM [facility], Provider: Minnie Vásquez, Status: Pen, Time: 11:00 AM -[facility] DO Work Phone: Start: 02-05-2023 ECHO, Provider: NEISHA ACKERMAN [facility] ULTRASOUND 01,[id number], Status: Pen, Time: 2:30 PM ECHO, Provider: NERI [facility] ULTRASOUND 01,[id number], Status: Pen, Time: 2:30 PM -[facility] DO Work Phone: Start: 12-26-2022 HOLTER 48, Provider: EDDI REBOLLEDO TELEPHONE RECORDER 1,[id number], Status: Pen, Time: 1:00 PM HOLTER 48, Provider: EDDI REBOLLEDO TELEPHONE RECORDER 1,[id number], Status: Pen, Time: 1:[address] [facility] DO Work Phone: Start: 07-16-2022 [facility] Start: 09-30-2014 Urine microalbumin profile DTAP,TDAP,TD (1 - Tdap) [facility] Start: 09-30-2013 HEPATITIS C SCREENING HEPATITIS C [facility] Start: 09-30-2013 Hepatitis C screening Hepatitis C [facility] Start: 09-30-2013 HIV SCREENING HIV SCREENING [facility] Start: 11-16-1999 Varicella vaccination Varicell a Vaccines (1 of 2 - 2-dose childhood series) [facility] Start: 04-02-1996 COVID-19 VACCINE (#1) COVID-19 VACCI NE (#1) [facility] Start: 1995 HEPATITIS B (1 of 3 - 3-dose series) HEPATITIS B (1 of 3 - 3-dose series) [facility] Start: 1995 HIV screening HIV Screening [facility] Start: 1995 Lipid panel Lipid Panel [facility] Start: 1995 Yearly Adult Physical [facility] Immun[facility] Immunization Date Immunization Notes Care Provider Francisco barney 09-14-2013 tetanus toxoid, redu ezio diphtheria toxoid, and acellular pertussis vaccine, adsorbed Cesilia Jeter MD Work Phone: [facility] Work Phone: 09-14-2013 tetanus toxoid, redu ezio diphtheria toxoid, and acellular pertussis vaccine, adsorbed Bi BELL [facility] Comment on above: Early/Late Reason: N ursing Judgment Early/Late Reason: N ursing Judgment 11-06-2008 meningococcal ACWY vaccine, unspecified formulation Trupti Marques [facility] 11-06-2008 meningococcal polysaccharide (groups A, C, Y and W-135) diphtheria toxoid conjugate vaccine (MCV4P) Bi Bell Work Phone: [facility] Work Phone: 11-06-2008 tetanus toxoid, redu ezio diphtheria toxoid, and acellular pertussis vaccine, adsorbed Trupti Marques [facility] 04-23-2003 influenza virus vaccine, unspecified formulation Trupti Marques [facility] 04-23-2003 influenza, seasonal, injectable Bi Bell Work Phone: [facility] DO Work Phone: 07-11-2002 influenza virus vaccine, unspecified formulation Trupti Marques [facility] 07-11-2002 influenza, seasonal, injectable Bi Bell Work Phone: [facility] [employer] 250 DO Work Phone: 06-04-2002 influenza virus vaccine, unspecified formulation Trupti Marques [facility] 06-04-2002 influenza, seasonal, injectable Bi Bell [facility]: [facility] Work Phone: 10-19-1999 diphtheria, tetanus toxoids and acellular pertussis vaccine, unspecified formulation Bi Bell Work Phone: [facility] 10-19-1999 DTaP, unspecified formulation Trupti Shelli [facility] 10-19-1999 measles, mumps and rubella virus vaccine Trupti Marques [facility] 10-19-1999 poliovirus vaccine, unspecified formulation Bi Bell Work Phone: [facility] 250 DO Work Phone: 12-26-1996 diphtheria, tetanus toxoids and acellular pertussis vaccine, unspecified formulation Bi Bell [facility] Phone: [facility] Work Phone: 12-26-1996 DTaP, unspecified formulation Trupti Shelli [facility] 12-26-1996 haemophilus influenz ae type b vaccine, conjugate unspecified formulation Bi Bell [facility] Phone[facility] Work Phone: 12-26-1996 Hib, unspecified formulation Trupti Shelli [facility] 12-26-1996 measles, mumps and rubella virus vaccine Trupti Shelli [facility] 03-28-1996 DTP-Haemophilus influenzae type b conjugate vaccine Bi Bell [facility] Phone: [facility] Work Phone: 03-28-1996 DTP-Hib Trupti Shelli [facility] 03-28-1996 hepatitis B vaccine, pediatric or pediatric/adolescent dosage Trupti Shelli [facility] 03-28-1996 trivalent poliovirus vaccine, live, oral Bi S Ray Work Phone: [facility] [employer] 250 DO Work Phone: 01-25-1996 DTP-Haemophilus influenzae type b conjugate vaccine Bi S Ray Work Phone: [facility] [employer] 250 DO Work Phone: 01-25-1996 DTP-Hib Trupti Shelli [facility] 01-25-1996 trivalent poliovirus vaccine, live, oral Bi S Ray Work Phone: [facility] [employer] 250 DO Work Phone: 1995 DTP-Haemophilus influenzae type b conjugate vaccine Bi S Ray Work Phone: [facility] [employer] 250 DO Work Phone: 1995 DTP-Hib Trupti Shelli [facility] 1995 hepatitis B vaccine, pediatric or pediatric/adolescent dosage Trupti Shelli [facility] 1995 trivalent poliovirus vaccine, live, oral Bi S Ray Work Phone: [facility] [employer] 250 DO Work Phone: 1995 hepatitis B vaccine, pediatric or pediatric/adolescent dosage Trupti Shelli [facility] NEGATED: Highlighted row has not occurred!08-08-2022 influenza virus vaccine, unspecified formulation Trupti Shelli [facility] NEGATED: Highlighted row has not occurred!02-16-2022 influenza virus vaccine, unspecified formulation Cruzito ALDANA [facility] NEGATED: Highlighted row has not occurred!08-10-2020 influenza virus vaccine, unspecified formulation Bi BELL [facility] Payers Date Payer Category Payer Self-pay [id number] 2021 Medicaid [employer] [place] [id number] 2021-Present [id number] [place] [id number] Medicaid [id number] 2021 Unknown 2021 Unknown [id number] 1995 Unknown [id number] 2.16.840.1.638350.3.579.2.1068 1995 Unknown [id number] 2.16.840.1.005776.3.579.2.356 1995 Unknown [id number] 2.16.840.1.394414.3.579.2.356 1995 Unknown [id number] 2.16.840.1.277213.3.579.2.356 1995 Unknown [id number] 2.16.840.1.467815.3.579.2.356 1995 Unknown [id number] 2.16.840.1.945483.3.579.2.356 1995 Unknown [id number] 2.16.840.1.760358.3.579.2.356 1995 Unknown [id number] 2.16.840.1.680374.3.579.2.1246 1995 Unknown [id number] 2.16.840.1.734881.3.579.2.1244 1995 Unknown [id number] 2.16.840.1.176343.3.579.2. 1995 Unknown [id number] 2.16.840.1.110842.3.579.2. 1995 Unknown [id number] 2.16.840.1.072069.3.579.2 1995 Unknown [id number] 2.16.840.1.975913.3.579.2 1995 Unknown [id number] 2.16.840.1.574096.3.579.2 1995 Unknown [id number] 2.16.840.1.622262.3.579.2 1995 Unknown [id number] 2.16.840.1.630065.3.579.2 1995 Unknown [id number] 2.16.840.1.185849.3.579.2 1995 Unknown [id number] 2.16.840.1.296170.3.579.2. 1995 Unknown [id number] 2.16.840.1.854427.3.579.2 1995 Unknown [id number] 2.16.840.1.023912.3.579.2 1995 Unknown [id number] 2.16.840.1.735661.3.579.2 1995 Unknown [id number] 2.16.840.1.892015.3.579.2 1995 Unknown [id number] 2.16.840.1.785869.3.579.2 1995 Unknown [id number] 2.16.840.1.109126.3.579.2.727 1995 Unknown [id number] 2.16.840.1.685048.3.579.2.727 1995 Unknown [id number] 2.16.840.1.750099.3.579.2.727 1995 Unknown [id number] 2.16.840.1.043464.3.579.2.727 1995 Unknown [id number] 2.16.840.1.602967.3.579.2.727 1995 Unknown [id number] 2.16.840.1.506719.3.579.2.727 1995 Unknown [id number] 2.16.840.1.251056.3.579.2.727 Unknown [employer]/BS [id number] Unknown [employer] [id number] Unknown [id number] 2.16.840.1.265712.3.579.2.531 Social History Date Type Detail Facility Start: 09-04-2019 End: 05-25-2023 Tobacco smoking status Never smoked tobacco (finding) [facility] Start: 05-28-2023 Sex Assigned At Male F [facility] Start: 1995 Sex Assigned At Not on file C [facility] Start: 05-28-2023 Occasional caffeine consumption Occasional caffeine consumption [facility] DO Work Phone: Start: 1995 Sex Assigned At Male F [facility] Start: 05-25-2023 Tobacco use and exposure Smokeless tobacco non-user [facility] Work Phone: Start: 05-28-2023 Alcohol intake Current drinke r of alcohol (finding) [facility] Work Phone: Start: 05-25-2023 Alcohol Comment social [facility] Work Phone: Start: 05-18-2023 End: 05-28-2023 Exposure to SARS-CoV-2 (event) Not sure [facility] Functional Status Date Assessment Result Facility 02-07-2023 Functional Status N/A [facility] 11-23-2022 Functional Status N/A [facility] 10-20-2022 Functional Status N/A [facility] 08-09-2022 Functional Status N/A [facility] 08-08-2022 Functional Status N/A [facility] 04-13-2022 Functional Status N/A [facility] 03-27-2022 Functional Status N/A [facility] Clinical Notes 10-06-2021 to 05-28-2023 Cesilia Jeter [...] further questions arise, Sincerely, Cesilia Jeter MD [facility] documented in this encounter [facility] Work Phone: 05-28-2023 Instructions Sri Steward [...] up as needed. documented in this encounter [facility] Work Phone: 02-08-2023 Hospital Discharge instructions [...] or after getting dental care. Medicines Take zdwc-tdr-ahdszji and prescription medicines only as told by [...] pain may be mild or severe. Take dkhi-hqo-uovowwj and prescription medicines only as told by [...] provider. Document Revised: 04/06/2021 Document Reviewed: 04/06/2021 [employer] Patient Education 2022 [employer]. Follow Up Care 02/07/2023 21:24:21 With:Bi BELL Address: [address] [place] [address] [place] [address]- [phone] Business (1) When:02/10/2023 21:58:50 Comments:Follow-up with your primary care provider in 3 to 5 days. If symptoms worsen, do not improve, or new symptoms arise please report back to emergency department for further evaluation. [facility] 12-14-2022 History of Present illness Narrative 27-year-old [...] pain8.History of migraine headaches9. History of bowel ncceuxckiutz29. Possible irritable bowel dyuynvll16. Small intestinal bacterial qrrasvmusg13. Idiopathic small fiber peripheral neuropathy.13. Low vitamin B12 and vitamin D levels on knixlpofitkjksu94. Echocardiogram January 2023-left atrium 3 cm LV end-systolic dimension 3.3 cm LV wall thickness 0.8 cm grossly normal valves normal RV size and systolic function RVSP could not be msbqsvvjfe17. 48-hour Holter monitor January 2023-predominant rhythm sinus minimum sinus rate 55 average sinus rate 94 maximum heart rate 154 bpm isolated ventricular premature beats and supraventricular premature beats no atrial fibrillation or malignant dysrhythmias, patient did not report any symptoms and did not report activity status. If tachycardia occurred with minimal activity or at rest inappropriate sinus tachycardia cannot be hyvtfknn84. Tilt table testing February 2023-after sublingual nitroglycerin [...] situations that may precipitate presyncope or syncope -[facility] DO Work Phone: 10-20-2022 Hospital [...] powder, vinegar, hot sauces, and barbecue sauce. ?[place] fruit juices and citrus fruits, such as oranges, mynor, and limes. ?Tomato-based foods, such as red sauce, chili, salsa, and pizza with red sauce. ?Fried and fatty foods, such as donuts, sri lankan fries, potato chips, and high-fat dressings. ?High-fat [...] to any changes in your symptoms. Take ogjt-usr-pegmqlu and prescription medicines only as told by [...] you have new or worsening symptoms. Take zeuz-tsu-uuludsy and prescription medicines only as told by [...] 04/11/2006 Document Revised: 01/08/2019 Document Reviewed: 01/08/2019 [employer] Patient Education 2019 [employer]. Follow Up Care 08/08/2022 09:22:14 With:Trupti Marques CNP Address: When:1 month [facility] 08-09-2022 Hospital Discharge [...] oral rehydration solution (ORS). This is an gpbw-put-sgdeakq medicine that helps return your body to [...] drinks, sports drinks, and soda. Eat bland, zxgq-gn-gktuak foods in small amounts as you are able. These foods include bananas, applesauce, rice, lean meats, toast, and crackers. Avoid alcohol. Avoid spicy or fatty foods. Medicines Take kmyu-tej-dvoveyh and prescription medicines only as told by your health care provider. If you were prescribed an antibiotic medicine, take it as told by your health care provider. Do not stop using the antibiotic even if you start to feel better. General instructions Wash your hands often using soap and water. 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 Others in the household should wash their [...] and water are not available, use hand distribution center associate. Contact a health care provider if your diarrhea gets worse or you have new symptoms. Get help right away if you have signs of dehydration. This information is not intended to replace advice given to you by your health care provider. Make sure you discuss any questions you have with your health care provider. Document Released: 06/22/2003 Document Revised: 11/18/2019 Document Reviewed: 12/06/2018 [employer] Patient Education 2020 [employer]. 08/09/2022 19:45:10 Nausea, Adult Nausea, Adult Nausea [...] water added (diluted fruit juice). Eat bland, aysp-sw-czktft foods in small amounts as you are able. These foods include bananas, applesauce, rice, lean meats, toast, and crackers. Avoid drinking fluids that contain a lot of sugar or caffeine, such as energy drinks, sports drinks, and soda. Avoid alcohol. Avoid spicy or fatty foods. General instructions Take fbxy-udc-vgvqxdf and prescription medicines only as told by your health care provider. Rest at home while you recover. Drink enough fluid to keep your urine pale yellow. Breathe slowly and deeply when you feel nauseous. Avoid smelling things that have strong odors. Wash your hands often using soap and water. If soap and water are not available, use hand distribution center associate. Make sure that all people in your [...] recommendations for eating and drinking and take qyox-jcp-hvmbuvi and prescription medicines only as told by [...] 08/09/2005 Document Revised: 12/10/2018 Document Reviewed: 12/10/2018 [employer] Patient Education 2020 [employer] Follow Up Care 08/09/2022 16:52:07 With:Bi BELL Address: [address] [place], [place] [id number]- Business (1) When:08/12/2022 19:44:52 [facility] 08-08-2022 Hospital Discharge instructions Patient Education 08/08/2022 [...] Follow these instructions at home: Medicines Take ldri-qal-uixkeqn and prescription medicines only as told by [...] Watch your condition for any changes. Take ezch-bnp-twgeuzv and prescription medicines only as told by [...] 04/11/2006 Document Revised: 11/10/2019 Document Reviewed: 11/10/2019 [employer] Patient Education 2019 [employer]. Follow Up Care 07/28/2022 15:35:46 With:Trupti Marques CNP Address: When:3 months [facility] 03-07-2022 Hospital Discharge instructions Follow Up Care 03/07/2022 09:02:10 With:Bi BELL DO, FAM Address: [address] [place] [address]- When: only if needed [facility] 10-06-2021 Evaluation + Plan note Future Scheduled TestsLyme Ab/wb Reflex 10/06/21 [facility] Evaluation + Plan note Future Appointments Appointment Date:11/29/2021 03:40:00 PM Scheduled Provider:Bi BELL DO Location:[facility] Appointment Type: Open [facility] Evaluation + Plan note Future Appointments Appointment Date:12/05/2021 04:00:00 PM Scheduled [facility] Spine (FT) Appointment Date:01/10/2022 03:40:00 PM Scheduled Provider:Bi BELL DO Location:[facility] Appointment Type: Open Future Scheduled TestsMRI Spine Lumbar w/o Contrast 12/05/21 [facility] Evaluation + Plan note Future Appointments Appointment Date:01/10/2022 03:40:00 PM Scheduled Provider:Bi BELL DO Location:[facility] Appointment Type: Open Appointment Date:01/26/2022 02:45:00 PM Scheduled Provider:Adela MEZA MD Location:[facility] Appointment Type:BADH New Patient [facility] Evaluation + Plan note Future Appointments Appointment Date:03/22/2022 02:00:00 PM Scheduled Provider: Location:[facility] Appointment Type:Surgery PAT COVID Testing Appointment Date:03/29/2022 02:00:00 PM Scheduled Provider: Location:[facility] Appointment Type:Surgery FT Appointment Date:04/13/2022 04:20:00 PM Scheduled Provider:Bi BELL DO Location:[facility] Appointment Type: Open Future Scheduled TestsPancreatic Elastase, Fecal 02/16/22Fecal WBC Lactoferrin 02/16/22O & P Exam, Routine 02/16/22Celiac Disease Comprehensive 02/16/22Enteric Panel by PCR 02/16/22Calcium Level Total 02/16/22CBC w/ Indices 02/16/22Comprehensive Metabolic Panel 02/16/22Thyroid Stimulating Hormone 02/16/22 [facility] Evaluation + Plan note Future Appointments Appointment Date:03/22/2022 02:00:00 PM Scheduled Provider: Location:[facility] Appointment Type:Surgery PAT COVID Testing Appointment Date:03/29/2022 02:00:00 PM Scheduled Provider: Location:[facility] Appointment Type:Surgery FT Appointment Date:04/13/2022 04:20:00 PM Scheduled Provider:Bi BELL DO Location:[facility] Appointment Type: Open Diagnostic Tests PendingCeliac Disease Comprehensive 03/03/22 [facility] Evaluation + Plan note Future Appointments Appointment Date:03/22/2022 02:00:00 PM Scheduled Provider: Location:[facility] Appointment Type:Surgery PAT COVID Testing Appointment Date:03/29/2022 02:00:00 PM Scheduled Provider: Location:[facility] Appointment Type:Surgery FT Appointment Date:04/13/2022 04:20:00 PM Scheduled Provider:Bi BELL DO Location:[facility] Appointment Type: Open Diagnostic Tests PendingO & P Exam, Routine 03/03/22Enteric Panel by PCR 03/03/22Pancreatic Elastase, Fecal 03/03/22 [facility] Evaluation + Plan note Future Appointments Appointment Date:03/29/2022 01:50:00 PM Scheduled Provider: Location:[facility] Appointment Type:Surgery FT Appointment Date:04/13/2022 04:20:00 PM Scheduled Provider:Bi BELL DO Location:[facility] Appointment Type:[facility] Evaluation + Plan note Future Appointments Appointment Date:05/09/2022 08:20:00 AM Scheduled Provider:Trupti Marques CNP Location:[facility] Appointment Type:BADH Follow Up Appointment Date:07/13/2022 09:00:00 AM Scheduled Provider:Bi BELL DO Location:[facility] Appointment Type:[facility] Evaluation + Plan note Future Appointments Appointment Date:07/13/2022 09:00:00 AM Scheduled Provider:Bi BELL DO Location:[facility] Appointment Type:[facility] Evaluation + Plan note Future Appointments Appointment Date:08/15/2022 09:30:00 AM Scheduled Provider: [facility] Type:US Abdominal/Pelvis (FT) Appointment Date:08/31/2022 09:00:00 AM Scheduled Provider: Location:[facility] Appointment Type:Surgery FT Appointment Date:10/20/2022 10:20:00 AM Scheduled Provider:Trupti Marques CNP Location:[facility] Appointment Type:[facility] Follow Up Future Scheduled TestsUS Abdomen Complete 08/15/22 [facility] Evaluation + Plan note Future Appointments Appointment Date:08/21/2022 12:00:00 PM Scheduled Provider: Location:.MRI Appointment Type:MRI Knee/Tibia/Fibula (FT) Appointment Date:08/31/2022 09:00:00 AM Scheduled Provider: Location:[facility] Appointment Type:Surgery FT Appointment Date:10/20/2022 10:20:00 AM Scheduled Provider:Trupti Marques CNP Location:[facility] Appointment Type:[facility] Follow Up Future Scheduled TestsMRI Knee w/o Contrast Right 08/21/22 [facility] Evaluation + Plan note Future Appointments Appointment Date:08/31/2022 09:00:00 AM Scheduled Provider: Location:[facility] Appointment Type:Surgery FT Appointment Date:10/20/2022 10:20:00 AM Scheduled Provider:Trupti Marques CNP Location:[facility] Appointment Type:[facility] Follow Up [facility] Evaluation + Plan note Future Appointments Appointment Date:09/14/2022 08:00:00 AM Scheduled Provider: Location:[facility] Appointment Type:Surgery FT Appointment Date:10/20/2022 10:20:00 AM Scheduled Provider:Trupti Marques CNP Location:[facility] Appointment Type:[facility] Follow Up [facility] Evaluation + Plan note Future Appointments Appointment Date:10/20/2022 10:20:00 AM Scheduled Provider:Trupti Marques CNP Location:[facility] Appointment Type:[facility] Follow Up [facility] Evaluation + Plan note Future Appointments Appointment Date:11/01/2022 09:30:00 AM Scheduled Provider: Location:[facility] Appointment Type:Surgery FT Appointment Date:11/17/2022 10:20:00 AM Scheduled Provider:Trupti Marques CNP Location:[facility] Appointment Type:BAD Follow Up [facility] Evaluation + Plan note Future Appointments Appointment Date:12/21/2022 02:30:00 PM Scheduled Provider:Adela MEZA MD Location:[facility] Appointment Type:[facility] Follow Up Future Scheduled TestsCBC w/ Auto Diff 11/16/22 [facility] Evaluation + Plan note Future Appointments Appointment Date:11/29/2022 02:00:00 PM Scheduled Provider:Bi BELL DO Location:[facility] Appointment Type: Open Appointment Date:12/06/2022 08:15:00 PM Scheduled Provider: Location:.SLEEP LAB_ Appointment Type:EDUCATION PARAPROFESSIONAL Sleep Study PSG () Future Scheduled TestsCalprotectin, Fecal 11/23/22 [facility] Evaluation + Plan note Future Appointments Appointment Date:12/26/2022 04:00:00 PM Scheduled Provider:Bi BELL DO Location:[facility] Appointment Type: Open [facility] Evaluation note No assessment inform ation available [facility] Work Phone: Evaluation note Diagnosis Tachycardia- Primary Unspecified tachycardia Atrial fibrillation, unspecified type (CMS/HCC) Heart murmur Undiagnosed cardiac murmurs documented in this encounter [facility] Work Phone: Hospital course Narrative No data available for this section [facility] Hospital Discharge instructions No data available for this section [facility] Progress note No data available for this section [facility] Family History No Family History Records FoundUnknown [...] Care Team (unrecognized sect ion and content) 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 Relationship Specialty Start Date End Date Trupti Marques, [address] [place] [address] PCP - General Family Medicine 10/25/22 Team Status: Active Member Role Status Dates Bi Bell , Primary Care Provider Active Team Status: Inactive Member Role Status Dates Bi Bell DO Primary Care Provider Active Cesilia Jeter MD Attending Provider Active Minnie Vásquez MD Referring Provider Active 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 Reason for Visit (unrecogniz ed section and content) Reason Comments Follow-up Stress test results Specialty Diagnoses / Procedures Referred By Contac t Referred To Contact Cardiology Diagnoses Atrial fibrillation, unspecified type (CMS/HCC) Heart murmur Procedures Follow Up In Cardiology Cesilia Jeter MD [address] [facility] [address] [place] [address] Orin Barragan, THRESHER BROOMCORN-STACKER OPERATOR [address] [facility] [address] [place] [address] Referral ID Status Reason Start Date Expiration Date V isits Requested Visits Authorized [id number] Authorized 05/09/2023 05/08/2024 1 1 (unrecognized sect ion and content) No Status Records FoundNo Status Records FoundNo Status Records FoundNo Status Records FoundNo Status Records FoundNo Status Records FoundNo Status Records Found INFORMATION SOURCE (unrecogn ized section and content) DATE CREATED AUTHOR 02/05/2023 [facility] DATE CREATED AUTHOR AUTHOR'S ORGANIZ ATION 02/26/2023 [facility] DATE CREATED AUTHOR AUTHOR'S ORGANIZ ATION 04/07/2023 [facility] DATE CREATED AUTHOR AUTHOR'S ORGANIZ ATION 04/07/2023 [employer] DATE CREATED AUTHOR AUTHOR'S ORGANIZ ATION 05/06/2023 [facility] DATE CREATED AUTHOR AUTHOR'S ORGANIZ ATION 05/30/2023 [facility] DATE CREATED AUTHOR AUTHOR'S ORGANIZ ATION 06/12/2023 [facility] Goals (unrecognized section and content) Goals [...] BE BASED ON THE PRIMARY CLINICAL RECORDS. [employer] provides no warranty or guarantee of the accuracy or completeness of information in this document.
[2023-09-17 08:07] VITALS: BP 134/85; PULSE 105; RESP 16; TEMP 37.3; O2SAT 98
[2023-09-17 08:51] VITALS: RESP 20
[2023-09-17 09:03] VITALS: PULSE 100; PULSE 95; O2SAT 97; O2SAT 98
[2023-09-17 09:04] VITALS: BP 136/77
[2023-09-17] MEDS: 0.9 % SODIUM CHLORIDE 10 ML INJ (09:05)
[2023-09-17] MEDS: BUPIVACAINE HCL 0.25% PF 25 MG/10 ML VIAL INJ (09:06)
[2023-09-17] MEDS: IOHEXOL 240 MG/ML - 10 ML VIAL INJ (09:06)
[2023-09-17] MEDS: LIDOCAINE HCL 2% PF 100 MG/5 ML VIAL 3 ML INJ (09:06)
[2023-09-17] MEDS: TRIAMCINOLONE ACETONIDE 40 MG/ML VIAL 80 MG INJ (09:07)
[2023-09-17 09:09] VITALS: BP 139/89
--- NOTE | 2023-09-17 09:17 | W.PM.PROCNOT ---
Date of procedure: 09/17/23 Pre-op diagnosis: Lumbar stenosis with neurogenic claudication Post-op diagnosis: same as pre-op Procedure: Procedure: Bilateral L5-S1 transforaminal epidural steroid injection Medications: Bupivacaine 0.25% 2cc, lidocaine 2% 1cc, kenalog 80mg The patient was seen and examined in the preoperative holding area.? Informed consent was obtained and placed on the chart.? Patient was brought to the medical procedure unit and placed in the prone position where a timeout was completed verifying the correct patient, procedure site, position, and planned special equipment using sterile aseptic technique.? Under direct fluoroscopic visualization a 25-gauge Quincke tipped spinal needle was advanced at level left L5-S1 to the designated neural foramen where contrast dye was injected to show adequate spread.? There was no evidence of vascular or adverse uptake.? Epidural spread was appreciated.? The above-mentioned injectate was then placed in a 1.5 mL aliquot preceded by negative aspiration.? The needle was removed. The same procedure, at the same level, was completed on the opposite side. ? Patient was taken to the postprocedural recovery area and monitored for an appropriate length of time before found suitable for discharge in the accompaniment of a responsible adult. Anesthesia: Local Surgeon: Ray Rasmussen Pathology: none sent Condition: stable Disposition: no change
== END 2023-09-17 09:13 | disposition home or self-care (01) ==
LOC: SURGOUT 07:45
PROVIDERS: PCP Family Medicine; Visit Provider Anesthesiology
DX: M48.062 Spinal stenosis, lumbar region with neurogenic claudication (principal)
CPT/HCPCS: 64483; Q9966

== ENCOUNTER 2023-09-27 14:12 | Outpatient (OUT) | payer OTHER, SELFPAY ==
--- NOTE | 2023-09-27 16:12 | P.CN_ITS ---
Consult Note: HPI Data of Consult Patient: known to practice within the last 3 years Consult date: 05/21/23 Requesting Physician: Ewa Gan NP Primary Care Provider: BI BELL Consult Narrative Reason for consult: low back, bilateral lower extremity pain, midback pain Narrative: 27yom who presents for evaluation. worsening midback, low back pain with radiation into bilateral lower extremities. ongoing for several years. denies traumatic inciting event. lumbar imaging reviewed, which is significant for disc bulging and resultant stenosis at l4-5 and l5-s1. has engaged in provider directed course of home exercises >3x/week >6 weeks and now 17 visits of PT, with minimal benefit. uses tylenol on occasion, but does not like medication. Patient recently underwent bilateral L4 TFESI and bilateral L5 TFESI with 70% improvement in low back pain. cc:: CC: Ewa Gan NP Review of Systems ROS Status of ROS 10 or more systems reviewed and unremark able except as noted in history and below Musculoskeletal Reports: back pain PFSH PFSH Social History Smoking status: Never smoker Meds Home Medications and Allergies Home Medications Medication Instructions Recorded Confirmed Type Lactobacillus acidophilus 10 mg PO DAILY 05/24/23 09/17/23 History (Acidophilus capsule) cholecalciferol (vitamin D3) 50 2,000 unit PO DAILY 05/24/23 09/17/23 History mcg (2,000 unit) capsule cyanocobalamin (vitamin B-12) 1,000 mcg PO DAILY 05/24/23 09/17/23 History 1,000 mcg capsule famotidine 40 mg tablet 40 mg PO DAILY 05/24/23 09/17/23 History losartan 25 mg tablet 25 mg PO DAILY 05/24/23 09/17/23 History modafinil 200 mg tablet 200 mg PO DAILY 05/24/23 09/17/23 History naltrexone 1.5 mg capsule 3 mg PO BEDTIME 05/24/23 09/17/23 History (Lotrexone) pantoprazole 40 mg tablet,delayed 40 mg PO DAILY 05/24/23 09/17/23 History release pregabalin 50 mg capsule (Lyrica) 50 mg PO BID 05/24/23 09/17/23 History rimegepant 75 mg disintegrating 75 mg PO DAILY PRN migraine 05/24/23 09/17/23 History tablet (Nurtec ODT) headache diclofenac sodium 75 mg 75 mg PO BID PRN pain #10 tabs 08/26/23 09/17/23 Rx tablet,delayed release orphenadrine citrate 100 mg 100 mg PO DAILY PRN muscle spasm 08/26/23 09/17/23 Rx tablet,extended release #10 tabs prednisone 20 mg tablet 40 mg (2 x 20 mg) PO DAILY 5 days 08/26/23 09/17/23 Rx #10 tabs Allergies Allergy/AdvReac Type Severity Reaction Status Date / Time cyproheptadine Allergy Severe tired Verified 08/26/23 13:10 Exam Narrative Exam Narrative: Psych-alert and oriented x 3. Attentive and appropriate, constitutionally normal, displays normal mood and affect per situation. There are no obvious deficits in memory, reasoning, or intellect.? Skin-no obvious rashes, bruising, erythema noted to the patient's area of pain.? Extremities- extremities are warm with minimal edema and palpable pulses. Lumbar-tenderness to palpation noted in the lumbar spine and paraspinal musculature. Pain is elicited with flexion, extension, and lateral rotation of the lumbar spine. Range of motion is diminished with these motions. Facet loading maneuvers are positive.? pain in left PSIS, positive thigh thrust fabers and gaenslens Strength-noted to be unremarkable with the exception of decreased strength rated at 4 out of 5 in bilateral quadriceps femoris, anterior tibialis. Sensory-no notable sensory deficits in the bilateral lower extremities to touch or pinprick in all dermatomal distributions with the exception to decreased sensation to the bilateral L4, 5 dermatomal distribution? Coordination remains intact.? Gait remains non-antalgic. Constitutional Documenting provider has reviewed patient's vital signs: yes Common normals: no apparent distress, oriented x3, healthy appearing, alert and well nourished General appearance: cooperative HENMT Common normals: normocephalic, hearing grossly normal bilaterally and moist oral mucous membranes Head and scalp: normocephalic Eye Common normals: PERRL Pupil: PERRL Neck & C-Spine Common normals: full ROM General: normal visual inspection Chest Common normals: inspection of chest normal Respiratory Common normals: normal respiratory effort, no retractions and no use of accessory muscles Neuro Common normals: oriented x3, CN's II-XII intact bilaterally, moves all extremities, no focal motor deficits, no sensory deficits noted and deep tendon reflexes 2+ bilaterally Sensorium/orientation: alert Motor exam: strength 5/5 throughout and no movement abnormalities noted Psych Common normals: mental status grossly normal, thought process normal, cooperative, affect normal, speech normal and activity/motor behavior normal Speech: normal speech Thought process: normal thought process Results Additional Findings Additional findings: If on a controlled substance or opioids, I have checked an [place] report on this patient and there are no aberrancies noted in the prescribing history.??If on a controlled substance or opioid a drug screen was completed and reviewed within the last year, and if there has not been a drug screen completed we ordered one today to monitor higher risk, state monitored pain medication use. As part of providing excellent, safe, comprehensive care, the following was completed at our patient's visit: 1. A medication reconciliation and review to ensure accurate knowledge of current/active medications, including asking our patients to inform us about any fygo-ejo-zgulvas medications or herbal remedies/nutritional supplements/alternative remedies. 2. A review to specifically ensure our patients have had annual screening for screening for depression, screening for tobacco use, and screening for unhealthy alcohol use. For concerning screenings had a discussion with the patient, provided patient education, and recommended follow-up with primary care provider when appropriate. If patient noted with a risk of falling, they received education on strength, gait, and balance training to prevent future risk of falling. Assessment and Plan Assessment and Plan (1) Lumbar stenosis with neurogenic claudication: (2) Inflammation of left sacroiliac joint: Plan continue HEP as tolerated continue medications f/u 3 months, sooner if needed
== END 2023-09-27 14:13 | disposition home or self-care (01) ==
LOC: PM 14:12
PROVIDERS: PCP Family Medicine; Visit Provider Nurse Practitioner
DX: M48.062 Spinal stenosis, lumbar region with neurogenic claudication (principal); M53.3 Sacrococcygeal disorders, not elsewhere classified
CPT/HCPCS: G0463

== ENCOUNTER 2023-12-26 13:56 | Outpatient (OUT) | payer OTHER, SELFPAY ==
--- NOTE | 2023-12-26 14:26 | P.CN_ITS ---
Consult Note: HPI Data of Consult Patient: known to practice within the last 3 years Consult date: 05/21/23 Requesting Physician: Ewa Gan NP Primary Care Provider: BI BELL Consult Narrative Reason for consult: low back, bilateral lower extremity pain, midback pain Narrative: 27yom who presents for evaluation. worsening midback, low back pain with radiation into bilateral lower extremities. ongoing for several years. denies traumatic inciting event. lumbar imaging reviewed, which is significant for disc bulging and resultant stenosis at l4-5 and l5-s1. has engaged in provider directed course of home exercises >3x/week >6 weeks and now 17 visits of PT, with minimal benefit. uses tylenol on occasion, but does not like medication. Patient previously underwent bilateral L4 TFESI and bilateral L5 TFESI with >50% functional improvement and pain relief ongoing. cc:: CC: Ewa Gan NP Review of Systems ROS Status of ROS 10 or more systems reviewed and unremark able except as noted in history and below Musculoskeletal Reports: back pain PFSH PFSH Social History Smoking status: Never smoker Meds Home Medications and Allergies Home Medications ?Medication ?Instructions ?Recorded ?Confirmed ?Type Lactobacillus acidophilus 10 mg PO DAILY 05/24/23 09/17/23 History (Acidophilus capsule) cholecalciferol (vitamin D3) 50 2,000 unit PO DAILY 05/24/23 09/17/23 History mcg (2,000 unit) capsule cyanocobalamin (vitamin B-12) 1,000 mcg PO DAILY 05/24/23 09/17/23 History 1,000 mcg capsule famotidine 40 mg tablet 40 mg PO DAILY 05/24/23 09/17/23 History losartan 25 mg tablet 25 mg PO DAILY 05/24/23 09/17/23 History modafinil 200 mg tablet 200 mg PO DAILY 05/24/23 09/17/23 History naltrexone 1.5 mg capsule 3 mg PO BEDTIME 05/24/23 09/17/23 History (Lotrexone) pantoprazole 40 mg tablet,delayed 40 mg PO DAILY 05/24/23 09/17/23 History release pregabalin 50 mg capsule (Lyrica) 50 mg PO BID 05/24/23 09/17/23 History rimegepant 75 mg disintegrating 75 mg PO DAILY PRN migraine 05/24/23 09/17/23 History tablet (Nurtec ODT) headache diclofenac sodium 75 mg 75 mg PO BID PRN pain #10 tabs 08/26/23 09/17/23 Rx tablet,delayed release orphenadrine citrate 100 mg 100 mg PO DAILY PRN muscle spasm 08/26/23 09/17/23 Rx tablet,extended release #10 tabs prednisone 20 mg tablet 40 mg (2 x 20 mg) PO DAILY 5 days 08/26/23 09/17/23 Rx #10 tabs Allergies Allergy/AdvReac Type Severity Reaction Status Date / Time cyproheptadine Allergy Severe tired Verified 08/26/23 13:10 Exam Constitutional Documenting provider has reviewed patient's vital signs: yes Common normals: no apparent distress, oriented x3, healthy appearing, alert and well nourished General appearance: cooperative HENCO Common normals: normocephalic, hearing grossly normal bilaterally and moist oral mucous membranes Head and scalp: normocephalic Eye Common normals: PERRL Pupil: PERRL Neck & C-Spine Common normals: full ROM General: normal visual inspection Chest Common normals: inspection of chest normal Respiratory Common normals: normal respiratory effort, no retractions and no use of accessory muscles Back & Pelvis Lumbar spine/lower back: normal to inspection, lumbar ROM normal and straight leg raise negative bilaterally Sacroiliac joints: SI joints normal Other: strength 5/5 in BLE sensation intact BLE negative radiculopathy negative facet loading nontender to touch Extremity Common normals: normal to inspection and full ROM Neuro Common normals: oriented x3, CN's II-XII intact bilaterally, moves all extremities, no focal motor deficits, no sensory deficits noted, deep tendon reflexes 2+ bilaterally and gait normal Sensorium/orientation: alert Motor exam: strength 5/5 throughout and no movement abnormalities noted Psych Common normals: mental status grossly normal, thought process normal, cooperative, affect normal, speech normal and activity/motor behavior normal Speech: normal speech Thought process: normal thought process Results Additional Findings Additional findings: If on a controlled substance or opioids, I have checked an [facility] report on this patient and there are no aberrancies noted in the prescribing history.??If on a controlled substance or opioid a drug screen was completed and reviewed within the last year, and if there has not been a drug screen completed we ordered one today to monitor higher risk, state monitored pain medication use. As part of providing excellent, safe, comprehensive care, the following was completed at our patient's visit: 1. A medication reconciliation and review to ensure accurate knowledge of current/active medications, including asking our patients to inform us about any [id number] medications or herbal remedies/nutritional supplements/alternative remedies. 2. A review to specifically ensure our patients have had annual screening for screening for depression, screening for tobacco use, and screening for unhealthy alcohol use. For concerning screenings had a discussion with the patient, provided patient education, and recommended follow-up with primary care provider when appropriate. If patient noted with a risk of falling, they received education on strength, gait, and balance training to prevent future risk of falling. Assessment and Plan Assessment and Plan (1) Lumbar stenosis with neurogenic claudication: (2) Inflammation of left sacroiliac joint: Plan continue HEP as tolerated f/u as needed
== END 2023-12-26 13:57 | disposition home or self-care (01) ==
LOC: PM 13:56
PROVIDERS: PCP Family Medicine; Visit Provider Nurse Practitioner
DX: M48.062 Spinal stenosis, lumbar region with neurogenic claudication (principal); M53.3 Sacrococcygeal disorders, not elsewhere classified
CPT/HCPCS: G0463